=== PATIENT | male | born 1940 | race Caucasian/White ===

== ENCOUNTER 2019-02-09 13:12 | Inpatient (IN) ==
[2019-02-09] MEDS ORDERED: ACETAMINOPHEN 500 MG TAB PO STA (14:22)
[2019-02-09] MEDS ORDERED: PIPERACILLIN/TAZOBACTAM 4.5 GM/120 ML BAG IV ONE (14:41)
[2019-02-09] MEDS ORDERED: MoRPHine SULFATE 2 MG/ML CARP IV STA (14:41)
[2019-02-09] MEDS ORDERED: PIPERACILL/TAZOBAC CONSULT ACTIVE PRN (14:41)
[2019-02-09 15:04] LABS: Basophils # (auto) 0.01 K/uL (0-0.2); Basophils % (auto) 0.1 %; Hemoglobin 11.4 g/dL (14.0-18.0); Immature Granulocytes # (auto) 0.02 K/uL (0.00-0.02); Immature Granulocytes % (auto) 0.2 %; Lymphocytes # (auto) 0.39 K/uL (1.2-3.4); Lymphocytes % (auto) 3.2 %; Mean Corpuscular Hgb Conc 32.6 g/dL (32-36); Mean Corpuscular Volume 87.1 fL (80-100); Mean Platelet Volume 10.2 fL (7.4-10.4); Monocytes # (auto) 0.93 K/uL (0.11-0.59); Monocytes % (auto) 7.6 %; Neutrophils # (auto) 10.88 K/uL (1.4-6.5); Neutrophils % (auto) 88.9 %; Platelet Count 227 K/uL (130-400); RDW Coefficient of Variation 16.1 % (11.5-14.5); RDW Standard Deviation 51.6 fL (36.4-46.3); Red Blood Count 4.02 M/uL (4.7-6.1); White Blood Count 12.23 K/uL (4.8-10.8)
[2019-02-09 15:26] LABS: Alanine Aminotransferase 38 U/L (12-78); Albumin Level 1.9 gm/dl (3.4-5.0); Aspartate Aminotransferase 51 U/L (15-37); BUN Creatinine Ratio 15.7 (10-20); Blood Urea Nitrogen 57 mg/dl (7-18); Calcium 8.4 mg/dl (8.5-10.1); Carbon Dioxide 29 mmol/L (21-32); Chloride 99 mmol/L (98-107); Est GFR (African American) 17.6; Est GFR (Non-African American) 15.2; Glucose 235 mg/dl (70-99); Potassium 4.1 mmol/L (3.5-5.1); Sodium 135 mmol/L (136-145)
[2019-02-09 15:33] LABS: Albumin Globulin Ratio 0.4 (0.9-2); Alkaline Phosphatase 54 U/L (45-117); Bilirubin,Total 0.6 mg/dl (0.2-1); Globulin 4.3 gm/dl (2.5-4.0); Total Protein 6.2 gm/dl (6.4-8.2)
--- NOTE | 2019-02-09 15:38 | XRay Report ---
XR ankle RT min 3V routine CLINICAL HISTORY: Cellulitis COMPARISON: Right tibia and fibula radiographs December 07, 2015. FINDINGS: Alignment of the right ankle is anatomic. The talar dome is intact. There are soft tissue swelling. There is no evidence for osteomyelitis. There is moderate posterior and plantar calcaneal s purring. An ossicle along the medial malleolus is old. IMPRESSION: 1. No acute fracture or evidence of osteomyelitis. 2. Moderate soft tissue swelling. Electronically signed by: Daniel Muñoz M.D. 02/09/2019 3:37 PM
--- NOTE | 2019-02-09 15:38 | XRay Report ---
XR foot RT min 3V routine CLINICAL HISTORY: cellulitis COMPARISON: None. DISCUSSION: There is moderate dorsal soft tissue swelling. No acute fractures are visualized. No dest ructive lesions are evident. There is calcaneal spurring. There is no conventional radiographic evide nce of osteomyelitis. IMPRESSION: 1. No acute fractures 2. Dorsal soft tissue swelling 3. No destructive lesions are visualized Electronically signed by: Lino Mae M.D. 02/09/2019 3:37 PM
[2019-02-09] MEDS ORDERED: VANCOMYCIN CONSULT ACTIVE PRN (16:18)
[2019-02-09] MEDS ORDERED: VANCOMYCIN HCL 2,500 MG in SODIUM CHLORIDE 0.9% 500 ML IV ONE (16:18)
--- NOTE | 2019-02-09 16:18 | History & Physical Report ---
Date of Service February 09, 2019 Assessment & Plan (1) CHF (congestive heart failure): Volume Overload Acute on chronic systolic CHF exacerbation --CXR showed:Mild cardiomegaly with volume overload/congestive change and mild pulmonary edema. Given the asymmetric density at the left lung base, underlying left lower lobe pneumonia cannot be excluded. Correlate clinically for infectious symptoms. Suspected left pleural effusion. --Did not take his medications since last 3 days --Update ECHO Hold PO diuretics Start IV Lasix 40mg BID Daily weight, I/Os, fluid restriction Low sodium diet Oxygen support PRN Monitor renal function/electrolytes Cardiology consulted Afib RVR: Diagnosed in Nov 2018 Monitor electrolytes Did not take his medications since 3 days Restart metoprolol Monitor INR:3.5 Hold Coumadin today B/L LE cellulitis: Normal Lactate levels Venous Doppler:There is no sonographic evidence of deep venous thrombosis identified in the right lower extremity. Ankle X ray:No acute fracture or evidence of osteomyelitis. Moderate soft tissue swelling. Foot X ray:No acute fractures. Dorsal soft tissue swelling No destructive lesions are visualized Start on Daptomycin and Zosyn Blood/Wound Cultures Wound Care BRANDEE on CKD IV: Hold Lisinopril, Statin Avoid NSAIDs Baseline Cr:2.5 in Nov 2018 Cr:3.62 Avoid nephro toxic agents Monitor renal function Consulted Nephrology DM II hold oral diabetic meds Last A1c:7.1 in Nov 2018 ISS, basal Insulin, Accu checks, Diabetic diet Update A1C Dyslipidemia Hold Statin for now Mechanical Fall: PT/OT Fall precuations CARLOS ALBERTO Not on CPAP Tobacco use disorder Refuses Nicotine Patch DVT Px: INR supratherapeutic Code Status DNI/DNR as per my discussion with patient Disposition: PT/OT prior to discharge History of Present Illness Chief Complaint: Leg swelling Primary Care Provider: Aden Colon Patient is a 78-year-old male with history of DM II, CHF, CKD IV, atrial fibrillation, dyslipidemia, CARLOS ALBERTO, tobacco use disorder, hypertension and other problems presents with history of worsening bilateral leg swelling and pain since 1 week duration. Patient is a poor historian. He states having bilateral leg swelling with erythema which has been progressively worsening. Denies any history of trauma, insect bite. "My dog scratches my legs on and off". Patient was noted to be noncompliant with office visits as per outpatient documentation. He complains of leg pain which is 9/10 intensity, sharp to dull, associated with difficulty with ambulation and generalized weakness. He also noted some clear discharge from small wounds on his legs. He reports history of fall yesterday denies any history of syncope, head trauma. He has been having dry cough since last few weeks. He states having palpitations intermittently and admits to not taking his medications since last 3 days. He states have dyspnea on exertion only. Denies any history of chest pain, SOB at rest, orthopnea, PND, weight change, dizziness, hemoptysis, fever, chills, headache, change in vision, nausea, vomiting, abdominal pain, diarrhea, dysuria, recent change in medications. Allergies Allergy/AdvReac Type Severity Reaction Status Date / Time codeine AdvReac Intermediate NAUSEA Verified 02/09/19 14:25 Home Medications Home Medications Medication Instructions Recorded Confirmed Type aspirin 325 mg PO DAILY 02/09/19 02/09/19 History cholecalciferol (vitamin D3) 2,000 units PO DAILY 02/09/19 02/09/19 History furosemide 40 mg PO BID 02/09/19 02/09/19 History glipizide 10 mg PO BID 02/09/19 02/09/19 History liraglutide [Victoza 2-Fernando] 1.2 mg SUBCUT DAILY 02/09/19 02/09/19 History lisinopril 40 mg PO DAILY 02/09/19 02/09/19 History lovastatin 80 mg PO HS 02/09/19 02/09/19 History metoprolol succinate [Toprol XL] 50 mg PO DAILY 02/09/19 02/09/19 History potassium chloride 20 meq PO DAILY 02/09/19 02/09/19 History warfarin 5 mg PO DIRECTED 02/09/19 02/09/19 History Past Med/Surg History Medical History Atrial fibrillation CHF (congestive heart failure) CKD (chronic kidney disease), stage IV Diabetes Dyslipidemia HTN (hypertension), benign No significant past surgical history CARLOS ALBERTO (obstructive sleep apnea) Tobacco use disorder Family History Mother Cancer Social History Feels Safe at Home: Yes Smoking Status: Current every day smoker Hx Alcohol Use: No Review of Systems All systems reviewed & are unremarkable except as noted in HPI & below Physical Exam Vital Signs (Past 24 Hours): Last Vital Signs Temp 36.6 C 02/09/19 13:23 Pulse 107 H 02/09/19 15:40 Resp 17 02/09/19 15:40 BP 102/59 L 02/09/19 15:40 Pulse Ox 98 02/09/19 14:46 Physical Exam: Physical Exam: Vitals signs as noted above General Appearance:Obese, no apparent distress Head: normocephalic, Atraumatic Eyes: normal inspection, EOMI Neck: supple, Trachea midline Respiratory/Chest: Decreased breath sounds, Scattered rales, wheezes Cardiovascular: Irregularly Irregular, No murmur, +Tachycardia Abdomen/GI:Soft, Non tender, Bowel sounds present Extremities/Musculoskelatal:normal inspection, B/L LE swelling, erythema, small open wounds Neurologic/Psych:AAOX3, grossly no focal neurological deficits Skin: normal color, warm Results & Data Laboratory Results Short CBC 02/09/19 Range/Units 14:50 WBC 12.23 H (4.8-10.8) K/uL Hgb 11.4 L (14.0-18.0) g/dL Hct 35.0 L (42-52) % Plt Count 227 (130-400) K/uL BMP 02/09/19 14:50 Sodium 135 L Potassium 4.1 Chloride 99 Carbon Dioxide 29 BUN 57 H Creatinine 3.62 H Glucose 235 H Calcium 8.4 L Liver Function 02/09/19 Range/Units 14:50 Total Bilirubin 0.6 (0.2-1) mg/dl AST 51 H (15-37) U/L ALT 38 (12-78) U/L Alkaline Phosphatase 54 (45-117) U/L Albumin 1.9 L (3.4-5.0) gm/dl Diagnostic Findings CXR: 1. Mild cardiomegaly with volume overload/congestive change and mild pulmonary edema. Given the asymmetric density at the left lung base, underlying left lower lobe pneumonia cannot be excluded. Correlate clinically for infectious symptoms. 2. Suspected left pleural effusion. ECG Additional Comments: EKG:Atrial Fibrillation, QTC:464
--- NOTE | 2019-02-09 16:32 | Ultrasound Report ---
ULTRASOUND RIGHT LOWER EXTREMITY VENOUS CLINICAL HISTORY: Right lower extremity erythema. Cellulitis. COMPARISON STUDY: Bilateral lower extremity venous ultrasound dated 03/17/2012. TECHNIQUE: Real-time, grayscale, and color Doppler sonography of the deep veins of the right lower ex tremity was performed from the inguinal crease to the calf. Compression and augmentation were utilize d. FINDINGS: There is no sonographic evidence of deep venous thrombosis identified in the right lower ex tremity. The common femoral, superficial femoral, and popliteal veins are patent and normally yaritza sible. The greater saphenous vein and the profunda femoris vein at the junction with the common femor al vein are clear. The visualized calf veins are patent. IMPRESSION: There is no sonographic evidence of deep venous thrombosis identified in the right lower extremity. Electronically signed by: Aman Valverde M.D. 02/09/2019 4:31 PM
[2019-02-09 17:34] LABS: INR 3.5 (0.9-1.1); Partial Thromboplastin Ratio 2.1; Prothrombin Time 32.5 Seconds (9.0-12.0)
--- NOTE | 2019-02-09 17:36 | XRay Report ---
XR chest 2V routine CLINICAL HISTORY: 78 years-old Male presenting with Cough. TECHNIQUE: Portable upright AP view of the chest was obtained. COMPARISON: 03/17/2012. FINDINGS: Atherosclerosis of the aortic arch. Cardiac silhouette mildly enlarged. Pulmonary vascular prominence and bronchial wall thickening. Bibasilar opacities more dense on the left. Underlying left pleural e ffusion suspected. No pneumothorax. Hyperdensity projects over the right hemithorax present on prior exam though slightly altered in location, likely within superficial soft tissues. Additional linear hyperdensity noted in the left axilla, which may have been present on prior exam. IMPRESSION: 1. Mild cardiomegaly with volume overload/congestive change and mild pulmonary edema. Given the asym metric density at the left lung base, underlying left lower lobe pneumonia cannot be excluded. Correl ate clinically for infectious symptoms. 2. Suspected left pleural effusion. Electronically signed by: Robinson Allison M.D. 02/09/2019 5:34 PM
--- NOTE | 2019-02-09 18:01 | Emergency Department Note ---
Entered by Philip Brumfield acting as a scribe for Jose Antonio Flores MD History of Present Illness General Chief complaint: Illness Stated complaint: RT LEG PAIN Time Seen by Provider: 02/09/19 13:49 Source: patient Mode of arrival: ambulatory History of Present Illness Provider complaint: skin changes Onset (ago): week(s) 3 Location: lower extremity Pain Consistency: + other (skin changes) Maximum Pain Intensity: 10 Current Pain Intensity: 10 Associated symptoms: no diaphoresis and no fever/chills The patient is a 78 year old white male with past medical history CHF, CKD, A- Fib, CARLOS ALBERTO and HTN who presents to the ED with chief complains of skin changes beginning 3 weeks ago. The patient states experiencing bilateral lower extremity skin changes and was given topical cream (patient unsure of medication appears to be antifungal/antibiotic). He then returned to his PCP Wednesday and at that time had some medicine changes but no additional antibiotics were given. He was told to return for evaluation on Wednesday and around that time developed seeping fluid from right lower extremity. He Was reevaluated this afternoon in the clinic and found to have significant erythema of right lower extremity and was told to come to the ED. Patient denies any significant chills, fever or sweats. Complains of 10/10 pain with walking or palpation and was required to be helped by his son in and out of bed. Patient states he is unable to ambulate at this time due to pain. Home Medications Home Medications Medication Instructions Recorded Confirmed Type aspirin 325 mg PO DAILY 02/09/19 02/09/19 History cholecalciferol (vitamin D3) 2,000 units PO DAILY 02/09/19 02/09/19 History furosemide 40 mg PO BID 02/09/19 02/09/19 History glipizide 10 mg PO BID 02/09/19 02/09/19 History liraglutide [Victoza 2-Fernando] 1.2 mg SUBCUT DAILY 02/09/19 02/09/19 History lisinopril 40 mg PO DAILY 02/09/19 02/09/19 History lovastatin 80 mg PO HS 02/09/19 02/09/19 History metoprolol succinate [Toprol XL] 50 mg PO DAILY 02/09/19 02/09/19 History potassium chloride 20 meq PO DAILY 03/14/19 03/14/19 History warfarin 5 mg PO DIRECTED 02/09/19 02/09/19 History Allergies Allergy/AdvReac Type Severity Reaction Status Date / Time codeine AdvReac Intermediate NAUSEA Verified 02/09/19 14:25 Past Med/Surg History Medical History Atrial fibrillation CHF (congestive heart failure) CKD (chronic kidney disease), stage IV Diabetes Dyslipidemia HTN (hypertension), benign No significant past surgical history CARLOS ALBERTO (obstructive sleep apnea) Tobacco use disorder Family History Mother Cancer Social History Preferred Language: Bahamian Communication Ability: Effective Beliefs That Will Affect Care: None Other Information That Helps Us Care for You: No Feels Safe at Home: Yes Safety Concerns: Feels Safe At This Time Smoking Status: Current every day smoker Hx Alcohol Use: No Hx Substance Use: No Review of Systems See HPI for pertinent positives & negatives. and A total of 10 systems reviewed and were otherwise negative Physical Exam Vital Signs Vital Signs - 24 hr 02/09/19 13:23 02/09/19 14:45 02/09/19 14:46 Temperature 36.6 C Temperature Source Oral Sepsis Recent Fever Within 48 Hours No Sepsis Action Taken by Nursing No Action Required Pulse Rate 123 H 106 H 112 H Pulse Rate [Right Brachial] Pulse Rate from SpO2 Sensor Pulse Rhythm [Right Brachial] Pulse Strength [Right Brachial] Respiratory Rate 24 25 H 20 Respiratory Effort / Characteristics Respiratory Depth Respiratory Pattern Blood Pressure 135/83 126/74 126/74 Blood Pressure [Right Arm] Blood Pressure Mean 100 91 91 Blood Pressure Mean [Right Arm] Blood Pressure Position [Right Arm] Pulse Oximetry 96 98 Oxygen Delivery Method Room Air Room Air 02/09/19 14:53 02/09/19 15:00 02/09/19 15:12 Temperature Temperature Source Sepsis Recent Fever Within 48 Hours Sepsis Action Taken by Nursing Pulse Rate 103 H 99 H Pulse Rate [Right Brachial] Pulse Rate from SpO2 Sensor Pulse Rhythm [Right Brachial] Pulse Strength [Right Brachial] Respiratory Rate 18 25 H Respiratory Effort / Characteristics Respiratory Depth Respiratory Pattern Blood Pressure Blood Pressure [Right Arm] Blood Pressure Mean Blood Pressure Mean [Right Arm] Blood Pressure Position [Right Arm] Pulse Oximetry Oxygen Delivery Method Room Air 02/09/19 15:40 02/09/19 15:41 02/09/19 16:00 Temperature Temperature Source Sepsis Recent Fever Within 48 Hours Sepsis Action Taken by Nursing Pulse Rate 107 H 110 H 102 H Pulse Rate [Right Brachial] Pulse Rate from SpO2 Sensor Pulse Rhythm [Right Brachial] Pulse Strength [Right Brachial] Respiratory Rate 17 18 17 Respiratory Effort / Characteristics Respiratory Depth Respiratory Pattern Blood Pressure 102/59 L 92/59 L Blood Pressure [Right Arm] Blood Pressure Mean 73 70 Blood Pressure Mean [Right Arm] Blood Pressure Position [Right Arm] Pulse Oximetry Oxygen Delivery Method 02/09/19 17:00 02/09/19 17:02 02/09/19 17:50 Temperature Temperature Source Sepsis Recent Fever Within 48 Hours Sepsis Action Taken by Nursing Pulse Rate 120 H 103 H Pulse Rate [Right Brachial] Pulse Rate from SpO2 Sensor 118 H Pulse Rhythm [Right Brachial] Pulse Strength [Right Brachial] Respiratory Rate 21 20 Respiratory Effort / Characteristics Respiratory Depth Respiratory Pattern Blood Pressure 101/54 L 103/65 Blood Pressure [Right Arm] Blood Pressure Mean 69 Blood Pressure Mean [Right Arm] Blood Pressure Position [Right Arm] Pulse Oximetry 98 99 Oxygen Delivery Method Room Air Room Air Room Air 02/09/19 18:39 02/09/19 21:58 02/09/19 23:01 Temperature 36.8 C 36.6 C Temperature Source Oral Oral Sepsis Recent Fever Within 48 Hours Sepsis Action Taken by Nursing Pulse Rate Pulse Rate [Right Brachial] 112 H 74 Pulse Rate from SpO2 Sensor Pulse Rhythm [Right Brachial] Regular Regular Pulse Strength [Right Brachial] Normal Normal Respiratory Rate 20 18 Respiratory Effort / Characteristics Non-Labored Spontaneous Non-Labored Non-Labored Respiratory Depth Normal Normal Normal Respiratory Pattern Regular Regular Regular Blood Pressure Blood Pressure [Right Arm] 111/60 121/62 Blood Pressure Mean Blood Pressure Mean [Right Arm] 77 81 Blood Pressure Position [Right Arm] Sitting Lying Pulse Oximetry 92 93 Oxygen Delivery Method Room Air Room Air Room Air 02/10/19 04:11 02/10/19 04:17 02/10/19 07:31 Temperature 36.9 C 36.9 C Temperature Source Oral Oral Sepsis Recent Fever Within 48 Hours Sepsis Action Taken by Nursing Pulse Rate 79 Pulse Rate [Right Brachial] 56 L 76 Pulse Rate from SpO2 Sensor Pulse Rhythm [Right Brachial] Regular Pulse Strength [Right Brachial] Normal Respiratory Rate 18 18 Respiratory Effort / Characteristics Non-Labored Respiratory Depth Normal Respiratory Pattern Regular Blood Pressure Blood Pressure [Right Arm] 98/58 L 100/64 Blood Pressure Mean Blood Pressure Mean [Right Arm] 71 76 Blood Pressure Position [Right Arm] Lying Pulse Oximetry 95 95 Oxygen Delivery Method Room Air GENERAL: Well appearing, well nourished, NAD, non-toxic. EYE EXAM: Normal conjunctiva. PERRL, no anisocoria and EOM's grossly intact w/o pain. OROPHARYNX: Moist MM. NECK: Supple, no nuchal rigidity, no adenopathy, non-tender. No signs of meningismus. LUNGS: Clear to auscultation. Normal chest wall mechanics. HEART: NSR, no MRG. ABDOMEN: Abdomen soft, non-tender, normo-active bowel sounds, no masses, no rebound or guarding. BACK: No CVA TTP. SKIN: No rashes and no bruising. UPPER EXTREMITIES: Upper extremities are grossly normal. LOWER EXTREMITIES: Bilateral lower extremity edema, pitting symmetric associated erythema several weeping ruptures blisters non bloody over right lower extremity with erythema from proximal edouard to distal foot. Several areas of ecchymosis o conrado right foot well perfused No crepitus. NEURO EXAM: A and O x3. GCS 15. Moves all 4 extremities on command w/o issue. Course 1420: Past medical records reviewed. The patient was evaluated in room A10, and a complete history and physical examination were performed. 1541: I discussed the patient's case with Russ Diaz and after discus valorie the patient will be admitted under his care. The patient verbalized agreement to the treatment plan. Consultations Consultation #1: Russ Diaz Time: 15:41 Administered Medications Aspirin (Ecotrin Ectab) 81 mg PO QAM [facility] Stop: 03/12/19 08:59 Last Admin: 02/10/19 08:54 Dose: 81 mg Documented by: [id number] Furosemide 40 mg/ Syringe 4 mls @ 4 mls/min IV Q12H [facility] Stop: 03/11/19 18:59 Last Admin: 02/10/19 06:05 Dose: 4 mls/min Documented by: [id number] Admin: 02/09/19 20:07 Dose: 4 mls/min Documented by: [id number] Piperacillin Sod/Tazobactam (Sod 4.5 gm/ Dextrose) 120 mls @ 30 mls/hr IV Q12H [facility]; Protocol Stop: 02/19/19 22:59 Last Infusion: 02/10/19 03:20 Dose: 0 mls/hr Documented by: [id number] Admin: 02/09/19 22:26 Dose: 30 mls/hr Documented by: [id number] Daptomycin 375 mg/ Syringe 7.5 mls @ 3.75 mls/min IV Q48H [facility]; Protocol Stop: 02/20/19 08:59 Last Admin: 02/10/19 08:35 Dose: 3.75 mls/min Documented by: [id number] Insulin Aspart (Novolog Flexpen) 0 units SC ACHS [facility] Stop: 03/11/19 20:59 Last Admin: 02/10/19 08:40 Dose: 5 units Documented by: [id number] Cosigned by: [id number] Admin: 02/09/19 20:25 Dose: 7 units Documented by: [id number] Cosigned by: [id number] Insulin Glargine (Lantus Solostar Pen) 10 units SC Q12H [facility] Stop: 03/11/19 20:59 Last Admin: 02/10/19 08:40 Dose: 10 units Documented by: [id number] Cosigned by: [id number] Admin: 02/09/19 20:11 Dose: 10 units Documented by: [id number] Cosigned by: [id number] Metoprolol Succinate (Toprol Xl) 50 mg PO DAILY [facility] Stop: 03/11/19 18:35 Last Admin: 02/10/19 08:36 Dose: 50 mg Documented by: [id number] Admin: 02/09/19 20:08 Dose: 50 mg Documented by: [id number] Potassium Chloride (Klor-Con M10) 10 meq PO BID [facility] Stop: 03/12/19 08:59 Last Admin: 02/10/19 08:35 Dose: 10 meq Documented by: [id number] Discontinued Medications Acetaminophen (Tylenol) 1,000 mg PO NOW STA Stop: 02/09/19 14:23 Last Admin: 02/09/19 15:10 Dose: 1,000 mg Documented by: [id number] Piperacillin Sod/Tazobactam Sod (Zosyn) 4.5 gm in 120 mls @ 240 mls/hr IV NOW ONE Stop: 02/09/19 15:10 Last Infusion: 02/09/19 16:08 Dose: 0 mls/hr Documented by: [id number] Admin: 02/09/19 15:36 Dose: 240 mls/hr Documented by: [id number] Vancomycin HCl 2,500 mg/ (Sodium Chloride) 550 mls @ 200 mls/hr IV NOW ONE Stop: 02/09/19 19:02 Last Infusion: 02/09/19 19:51 Dose: 0 mls/hr Documented by: [id number] Admin: 02/09/19 16:55 Dose: 200 mls/hr Documented by: [id number] Morphine Sulfate (Morphine Sulfate) 2 mg IV NOW STA Stop: 02/09/19 14:42 Last Admin: 02/09/19 15:35 Dose: 2 mg Documented by: [id number] Medical Decision Making Differential Diagnosis Differential diagnosis: Etiologies such as cellulitis, abscess, osteomyelitis, MRSA infection, DVT, necrotizing fasciitis, dermatitis, drug eruption, as well as others were entertained. Medical Records Attestation: I reviewed the patient's medical records. Home Medications Current Medication List: was personally reviewed by me Laboratory Data Attestation: I reviewed the patient's lab results. Result diagrams: 02/10/19 08:02 02/10/19 08:02 Lab Results 02/09/19 02/09/19 02/09/19 Range/Units 14:50 14:50 14:50 WBC 12.23 H (4.8-10.8) K/uL RBC 4.02 L (4.7-6.1) M/uL Hgb 11.4 L (14.0-18.0) g/dL Hct 35.0 L (42-52) % MCV 87.1 (80-100) fL MCH 28.4 (25-34) pg MCHC 32.6 (32-36) g/dL RDW Std Deviation 51.6 H (36.4-46.3) fL RDW Coeff of Kiah 16.1 H (11.5-14.5) % Plt Count 227 (130-400) K/uL MPV 10.2 (7.4-10.4) fL Immature Gran % (Auto) 0.2 % Neut % (Auto) 88.9 % Lymph % (Auto) 3.2 % [place] % (Auto) 7.6 % Eos % (Auto) 0.0 % Baso % (Auto) 0.1 % Immature Gran # (Auto) 0.02 (0.00-0.02) K/uL Neut # (Auto) 10.88 H (1.4-6.5) K/uL Lymph # (Auto) 0.39 L (1.2-3.4) K/uL [place] # (Auto) 0.93 H (0.11-0.59) K/uL Eos # (Auto) 0.00 (0-0.5) K/uL Baso # (Auto) 0.01 (0-0.2) K/uL Absolute Nucleated RBC (0-0) K/uL Nucleated RBC % (auto) % ESR 84 H (0-14) mm/hr PT (9.0-12.0) Seconds INR (0.9-1.1) APTT (21.0-31.0) Seconds PTT Ratio Sodium 135 L (136-145) mmol/L Potassium 4.1 (3.5-5.1) mmol/L Chloride 99 (98-107) mmol/L Carbon Dioxide 29 (21-32) mmol/L Anion Gap 7.0 (3-11) BUN 57 H (7-18) mg/dl Creatinine 3.62 H (0.6-1.4) mg/dl Est Cr Clr Drug Dosing Not Reportable Est GFR ( Amer) 17.6 Est GFR (Non-Af Amer) 15.2 BUN/Creatinine Ratio 15.7 (10-20) Glucose 235 H (70-99) mg/dl POC Glucose (70-99) Estimat Average Glucose mg/dl Hemoglobin A1c (4.5-5.6) % Lactate (0.4-2.0) mmol/L Calcium 8.4 L (8.5-10.1) mg/dl Magnesium (1.8-2.4) mg/dl Total Bilirubin 0.6 (0.2-1) mg/dl AST 51 H (15-37) U/L ALT 38 (12-78) U/L Alkaline Phosphatase 54 (45-117) U/L C-Reactive Protein 26.90 H (0-0.29) mg/dl Total Protein 6.2 L (6.4-8.2) gm/dl Albumin 1.9 L (3.4-5.0) gm/dl Globulin 4.3 H (2.5-4.0) gm/dl Albumin/Globulin Ratio 0.4 L (0.9-2) Procalcitonin (0-0.5) ng/ml Nasal Screen MRSA (PCR) (Negative) 02/09/19 02/09/19 02/09/19 Range/Units 14:50 14:50 14:50 WBC (4.8-10.8) K/uL RBC (4.7-6.1) M/uL Hgb (14.0-18.0) g/dL Hct (42-52) % MCV (80-100) fL MCH (25-34) pg MCHC (32-36) g/dL RDW Std Deviation (36.4-46.3) fL RDW Coeff of Kiah (11.5-14.5) % Plt Count (130-400) K/uL MPV (7.4-10.4) fL Immature Gran % (Auto) % Neut % (Auto) % Lymph % (Auto) % [place] % (Auto) % Eos % (Auto) % Baso % (Auto) % Immature Gran # (Auto) (0.00-0.02) K/uL Neut # (Auto) (1.4-6.5) K/uL Lymph # (Auto) (1.2-3.4) K/uL [place] # (Auto) (0.11-0.59) K/uL Eos # (Auto) (0-0.5) K/uL Baso # (Auto) (0-0.2) K/uL Absolute Nucleated RBC (0-0) K/uL Nucleated RBC % (auto) % ESR (0-14) mm/hr PT 32.5 H (9.0-12.0) Seconds INR 3.5 H (0.9-1.1) APTT 56.0 H* (21.0-31.0) Seconds PTT Ratio 2.1 Sodium (136-145) mmol/L Potassium (3.5-5.1) mmol/L Chloride (98-107) mmol/L Carbon Dioxide (21-32) mmol/L Anion Gap (3-11) BUN (7-18) mg/dl Creatinine (0.6-1.4) mg/dl Est Cr Clr Drug Dosing Est GFR ( Amer) Est GFR (Non-Af Amer) BUN/Creatinine Ratio (10-20) Glucose (70-99) mg/dl POC Glucose (70-99) Estimat Average Glucose mg/dl Hemoglobin A1c (4.5-5.6) % Lactate 1.7 (0.4-2.0) mmol/L Calcium (8.5-10.1) mg/dl Magnesium (1.8-2.4) mg/dl Total Bilirubin (0.2-1) mg/dl AST (15-37) U/L ALT (12-78) U/L Alkaline Phosphatase (45-117) U/L C-Reactive Protein Cancelled (0-0.29) mg/dl Total Protein (6.4-8.2) gm/dl Albumin (3.4-5.0) gm/dl Globulin (2.5-4.0) gm/dl Albumin/Globulin Ratio (0.9-2) Procalcitonin (0-0.5) ng/ml Nasal Screen MRSA (PCR) (Negative) 02/09/19 02/09/19 02/10/19 Range/Units 17:20 20:22 07:31 WBC (4.8-10.8) K/uL RBC (4.7-6.1) M/uL Hgb (14.0-18.0) g/dL Hct (42-52) % MCV (80-100) fL MCH (25-34) pg MCHC (32-36) g/dL RDW Std Deviation (36.4-46.3) fL RDW Coeff of Kiah (11.5-14.5) % Plt Count (130-400) K/uL MPV (7.4-10.4) fL Immature Gran % (Auto) % Neut % (Auto) % Lymph % (Auto) % [place] % (Auto) % Eos % (Auto) % Baso % (Auto) % Immature Gran # (Auto) (0.00-0.02) K/uL Neut # (Auto) (1.4-6.5) K/uL Lymph # (Auto) (1.2-3.4) K/uL [place] # (Auto) (0.11-0.59) K/uL Eos # (Auto) (0-0.5) K/uL Baso # (Auto) (0-0.2) K/uL Absolute Nucleated RBC (0-0) K/uL Nucleated RBC % (auto) % ESR (0-14) mm/hr PT (9.0-12.0) Seconds INR (0.9-1.1) APTT (21.0-31.0) Seconds PTT Ratio Sodium (136-145) mmol/L Potassium (3.5-5.1) mmol/L Chloride (98-107) mmol/L Carbon Dioxide (21-32) mmol/L Anion Gap (3-11) BUN (7-18) mg/dl Creatinine (0.6-1.4) mg/dl Est Cr Clr Drug Dosing Est GFR ( Amer) Est GFR (Non-Af Amer) BUN/Creatinine Ratio (10-20) Glucose (70-99) mg/dl POC Glucose 261 H 143 H (70-99) Estimat Average Glucose mg/dl Hemoglobin A1c (4.5-5.6) % Lactate (0.4-2.0) mmol/L Calcium (8.5-10.1) mg/dl Magnesium (1.8-2.4) mg/dl Total Bilirubin (0.2-1) mg/dl AST (15-37) U/L ALT (12-78) U/L Alkaline Phosphatase (45-117) U/L C-Reactive Protein (0-0.29) mg/dl Total Protein (6.4-8.2) gm/dl Albumin (3.4-5.0) gm/dl Globulin (2.5-4.0) gm/dl Albumin/Globulin Ratio (0.9-2) Procalcitonin (0-0.5) ng/ml Nasal Screen MRSA (PCR) Positive A (Negative) 02/10/19 02/10/19 02/10/19 Range/Units 08:02 08:02 08:02 WBC 9.05 (4.8-10.8) K/uL RBC 3.91 L (4.7-6.1) M/uL Hgb 11.1 L (14.0-18.0) g/dL Hct 34.2 L (42-52) % MCV 87.5 (80-100) fL MCH 28.4 (25-34) pg MCHC 32.5 (32-36) g/dL RDW Std Deviation 52.3 H (36.4-46.3) fL RDW Coeff of Kiah 16.3 H (11.5-14.5) % Plt Count 231 (130-400) K/uL MPV 10.1 (7.4-10.4) fL Immature Gran % (Auto) % Neut % (Auto) % Lymph % (Auto) % [place] % (Auto) % Eos % (Auto) % Baso % (Auto) % Immature Gran # (Auto) (0.00-0.02) K/uL Neut # (Auto) (1.4-6.5) K/uL Lymph # (Auto) (1.2-3.4) K/uL [place] # (Auto) (0.11-0.59) K/uL Eos # (Auto) (0-0.5) K/uL Baso # (Auto) (0-0.2) K/uL Absolute Nucleated RBC 0.02 H (0-0) K/uL Nucleated RBC % (auto) 0.3 % ESR (0-14) mm/hr PT 30.3 H (9.0-12.0) Seconds INR 3.2 H (0.9-1.1) APTT (21.0-31.0) Seconds PTT Ratio Sodium 135 L (136-145) mmol/L Potassium 4.5 (3.5-5.1) mmol/L Chloride 99 (98-107) mmol/L Carbon Dioxide 31 (21-32) mmol/L Anion Gap 5.0 (3-11) BUN 63 H (7-18) mg/dl Creatinine 4.17 H D (0.6-1.4) mg/dl Est Cr Clr Drug Dosing 19.1 Est GFR ( Amer) 14.8 Est GFR (Non-Af Amer) 12.8 BUN/Creatinine Ratio 15.1 (10-20) Glucose 137 H (70-99) mg/dl POC Glucose (70-99) Estimat Average Glucose mg/dl Hemoglobin A1c (4.5-5.6) % Lactate (0.4-2.0) mmol/L Calcium 8.3 L (8.5-10.1) mg/dl Magnesium 2.3 (1.8-2.4) mg/dl Total Bilirubin (0.2-1) mg/dl AST (15-37) U/L ALT (12-78) U/L Alkaline Phosphatase (45-117) U/L C-Reactive Protein (0-0.29) mg/dl Total Protein (6.4-8.2) gm/dl Albumin (3.4-5.0) gm/dl Globulin (2.5-4.0) gm/dl Albumin/Globulin Ratio (0.9-2) Procalcitonin (0-0.5) ng/ml Nasal Screen MRSA (PCR) (Negative) 02/10/19 02/10/19 Range/Units 08:02 08:02 WBC (4.8-10.8) K/uL RBC (4.7-6.1) M/uL Hgb (14.0-18.0) g/dL Hct (42-52) % MCV (80-100) fL MCH (25-34) pg MCHC (32-36) g/dL RDW Std Deviation (36.4-46.3) fL RDW Coeff of Kiah (11.5-14.5) % Plt Count (130-400) K/uL MPV (7.4-10.4) fL Immature Gran % (Auto) % Neut % (Auto) % Lymph % (Auto) % [place] % (Auto) % Eos % (Auto) % Baso % (Auto) % Immature Gran # (Auto) (0.00-0.02) K/uL Neut # (Auto) (1.4-6.5) K/uL Lymph # (Auto) (1.2-3.4) K/uL [place] # (Auto) (0.11-0.59) K/uL Eos # (Auto) (0-0.5) K/uL Baso # (Auto) (0-0.2) K/uL Absolute Nucleated RBC (0-0) K/uL Nucleated RBC % (auto) % ESR (0-14) mm/hr PT (9.0-12.0) Seconds INR (0.9-1.1) APTT (21.0-31.0) Seconds PTT Ratio Sodium (136-145) mmol/L Potassium (3.5-5.1) mmol/L Chloride (98-107) mmol/L Carbon Dioxide (21-32) mmol/L Anion Gap (3-11) BUN (7-18) mg/dl Creatinine (0.6-1.4) mg/dl Est Cr Clr Drug Dosing Est GFR ( Amer) Est GFR (Non-Af Amer) BUN/Creatinine Ratio (10-20) Glucose (70-99) mg/dl POC Glucose (70-99) Estimat Average Glucose 174 mg/dl Hemoglobin A1c 7.7 H (4.5-5.6) % Lactate (0.4-2.0) mmol/L Calcium (8.5-10.1) mg/dl Magnesium (1.8-2.4) mg/dl Total Bilirubin (0.2-1) mg/dl AST (15-37) U/L ALT (12-78) U/L Alkaline Phosphatase (45-117) U/L C-Reactive Protein (0-0.29) mg/dl Total Protein (6.4-8.2) gm/dl Albumin (3.4-5.0) gm/dl Globulin (2.5-4.0) gm/dl Albumin/Globulin Ratio (0.9-2) Procalcitonin 5.03 H (0-0.5) ng/ml Nasal Screen MRSA (PCR) (Negative) Imaging Data Attestation: I personally reviewed and interpreted this imaging study as follows: Radiologist's Impression: Radiology results as stated below per my review and the radiologist's interpretation: XR chest 2V routine CLINICAL HISTORY: 78 years-old Male presenting with Cough. TECHNIQUE: Portable upright AP view of the chest was obtained. COMPARISON: 03/17/2012. FINDINGS: Atherosclerosis of the aortic arch. Cardiac silhouette mildly enlarged. Pulmonary vascular prominence and bronchial wall thickening. Bibasilar opacities more dense on the left. Underlying left pleural effusion suspected. No pneumothorax. Hyperdensity projects over the right hemithorax present on prior exam though slightly altered in location, likely within superficial soft tissues. Additional linear hyperdensity noted in the left axilla, which may have been present on prior exam. IMPRESSION: 1. Mild cardiomegaly with volume overload/congestive change and mild pulmonary edema. Given the asymmetric density at the left lung base, underlying left lower lobe pneumonia cannot be excluded. Correlate clinically for infectious symptoms. 2. Suspected left pleural effusion. Electronically signed by: Robinson Allison M.D. 02/09/2019 5:34 PM ULTRASOUND RIGHT LOWER EXTREMITY VENOUS CLINICAL HISTORY: Right lower extremity erythema. Cellulitis. COMPARISON STUDY: Bilateral lower extremity venous ultrasound dated 03/17/2012. TECHNIQUE: Real-time, grayscale, and color Doppler sonography of the deep veins of the right lower extremity was performed from the inguinal crease to the calf. Compression and augmentation were utilized. FINDINGS: There is no sonographic evidence of deep venous thrombosis identified in the right lower extremity. The common femoral, superficial femoral, and popliteal veins are patent and normally compressible. The greater saphenous vein and the profunda femoris vein at the junction with the common femoral vein are clear. The visualized calf veins are patent. IMPRESSION: There is no sonographic evidence of deep venous thrombosis identified in the right lower extremity. Electronically signed by: Aman Valverde M.D. 02/09/2019 4:31 PM XR foot RT min 3V routine CLINICAL HISTORY: cellulitis COMPARISON: None. DISCUSSION: There is moderate dorsal soft tissue swelling. No acute fractures are visualized. No destructive lesions are evident. There is calcaneal spurring. There is no conventional radiographic evidence of osteomyelitis. IMPRESSION: 1. No acute fractures 2. Dorsal soft tissue swelling 3. No destructive lesions are visualized Electronically signed by: Lino Mae M.D. 02/09/2019 3:37 PM XR ankle RT min 3V routine CLINICAL HISTORY: Cellulitis COMPARISON: Right tibia and fibula radiographs December 07, 2015. FINDINGS: Alignment of the right ankle is anatomic. The talar dome is intact. There are soft tissue swelling. There is no evidence for osteomyelitis. There is moderate posterior and plantar calcaneal spurring. An ossicle along the medial malleolus is old. IMPRESSION: 1. No acute fracture or evidence of osteomyelitis. 2. Moderate soft tissue swelling. Electronically signed by: Daniel Muñoz M.D. 02/09/2019 3:37 PM ECG Data Indication: tachycardia Rate (beats per minute): 99 Rhythm: atrial fibrillation Findings: + other (normal QRS duration, normal axis, no ishcemic change) Change: the following changes noted (a fib now present compared to EKG 03/18/12) Blood Pressure Blood Pressure Findings: Normal blood pressure MDM Narrative Patient was seen and evaluated the bedside. The patient was presenting with right lower extremity swelling pain. Patient does complain of chronic shortness of breath. Patient does have significant right lower extremity edema and associated redness. Antibiotics were initiated. No crepitus noted. Patient does have several weeping ruptured bullae that are hemostatic. No evidence of any bloody bullae. The patient has a low reticulocyte score of 4. Not no risk but lower risk for necrotizing fasciitis. I believe this is a significant associated cellulitis at this time. Plain films show edema but no evidence of any subcu gas. The patient's blood work was significant for elevated CRP likely associated inflammatory response and the patient also does have a noted AK I with baseline creatinine 1.7 today is 3.5. I did speak with the on-call hospitalist who agreed to further evaluate treat the patient. Patient in a fib compared to prior EKG. On Coumadin. Pending INR. Impression & Plan Cellulitis, BRANDEE (acute kidney injury), Encounter for smoking cessation counseling Discharge Plan Visit Data *Final* Discharge Date/Time: 02/09/19 17:50 Chief Complaint: Illness Stated Complaint: RT LEG PAIN ED Provider: Jose Antonio Flores ED Midlevel Provider: David Santos Discharge Problem: Cellulitis, BRANDEE (acute kidney injury), Encounter for smoking cessation counseling Patient Disposition: Admitted As Inpatient Discharge Instructions Interventions: ED Discharge Assessment Last Done: 02/09/19 17:50 The scribe's documentation has been prepared under my direction and personally reviewed by me in its entirety. I confirm that the note above accurately reflects all work, treatment, procedures, and medical decision making performed by me.
[2019-02-09] MEDS ORDERED: POLYETHYLENE (MIRALAX) 17 GM PACK PO PRN (18:36)
[2019-02-09] MEDS ORDERED: DEXTROSE 50% 50 ML SYRINGE IV PRN (18:36)
[2019-02-09] MEDS ORDERED: ACETAMINOPHEN 325 MG TAB PO PRN (18:36)
[2019-02-09] MEDS ORDERED: GLUCOSE 10 TABS/TUBE PO PRN (18:36)
[2019-02-09] MEDS ORDERED: MoRPHine SULFATE 2 MG/ML CARP IV PRN (18:36)
[2019-02-09] MEDS ORDERED: GLUCAGON FOR INJ 1 MG VIAL SQ PRN (18:36)
[2019-02-09] MEDS ORDERED: ONDANSETRON INJ 2 MG/ML 2 ML VIAL IV PRN (18:36)
[2019-02-09] MEDS ORDERED: FUROSEMIDE 40 MG/4 ML VIAL IV STA (18:36)
[2019-02-09] MEDS ORDERED: GLUCOSE 40% GEL 15 GM TUBE PO PRN (18:36)
[2019-02-09] MEDS ORDERED: CARBOHYDRATES FOR HYPOGLYCEMIA PO PRN (18:36)
[2019-02-09] MEDS ORDERED: DAPTOMYCIN CONSULT ACTIVE PRN (19:02)
[2019-02-09] MEDS: FUROSEMIDE 40 MG in SYRINGE 0 ML IV SCH (20:07)
[2019-02-09] MEDS: METOPROLOL SUCC 50MG EXT REL TAB PO SCH (20:08)
[2019-02-09] MEDS: INSULIN GLARGINE SOLOSTAR 100 UNITS/ML 3 ML PEN SC SCH (20:11)
[2019-02-09] MEDS: INSULIN ASPART 100 UNITS/ML 3 ML PEN SC SCH (20:25)
[2019-02-09] MEDS ORDERED: PNEUMOCOCCAL ADMINISTRATION CHARGE ONE (21:00)
[2019-02-09] MEDS ORDERED: PNEUMOCOCCAL POLYSACCHARIDES 25 MCG/0.5 ML VIAL/SYR IM ONE (21:00)
[2019-02-09] MEDS: PIPERACILLIN/TAZOBACTAM 4.5 GM in DEXTROSE 5% 100 ML IV SCH (22:26)
[2019-02-10] MEDS: FUROSEMIDE 40 MG in SYRINGE 0 ML IV SCH (06:05)
--- NOTE | 2019-02-10 07:14 | Nephrology Consultation ---
Date of Consultation February 10, 2019 Assessment & Plan (1) BRANDEE (acute kidney injury): Baseline mid 2's, presented 02/09 w/ creat 3.6; worse today w/ diuresis to 4.2 DDX includes nephrotic syndrome from likeliest diabetic nephropathy; minimal change dz, interstitial nephritis, paraproteinemia also on differential; could have ATN from infections in legs; could have at least in theory vasculitis given elevated ESR -ordered UA -- still pending and reodered stat; also ordered prot/creat -some hypotension noted w/ SBP 90-100s >> monitor; ideally SBP would be 110-120s consistently > lowered lasix as below >had one dose vanco only; not continued no no need to monitor -cont to hold ACEI; change ASA as below -ordered renal u/s -no elias needed for now -w/ am labs ordered spep, upep; would hold off on gallagher work up as glomerular disease not top of differential though TTE findings and ESR notable Present on Admission?: Yes (2) CKD (chronic kidney disease) stage 4, GFR 15-29 ml/min: Baseline creatinine had been mid 2's; hx of nephrotic range proteinuria; presented w/ elements of nephrotic syndrome; advanced CKD from DM, HTN, obesity, macro/microvascular disease -low threshold for serologic w/u proteinuria -no indication for ASA 325 here and would reduce to 81 mg daily -needs OP CKD clinic f/u; has already told me he has no $ for this Present on Admission?: Yes (3) CHF (congestive heart failure): -agree w/ bid lasix 40 mg IV, low Na diet, 1.8L FR -diastolic HF grade 3, restrictive physiology; sigmoid septum >> should have spironolactone added when appropriate but deferred for now Present on Admission?: Yes (4) Volume overload: standing wt 02/10 114.8 kg first standing wt this admission. -follow daily standing wts -cont sodium/ FR -on lasix 40 mg IV bid currently >> will change to lasix 20 IV 3 daily doses given q6h (6A, noon, 6P) w/o MN dose (timed so as not to disrupt sleep) -given L pleural effusion and tobacco hx, low threshold for f/u CXR or non con CT chest/ consider diagnostic tap (admittedly challenging in AC pt) -reviewed w/ pharmacy and no need to concentrate ABTX which have minimal salt and volume load Present on Admission?: Yes History of Present Illness Reason for Consultation: brandee on ckd 4 Requesting Physician: Dr johnson Attending Physician: Mathew Johnson MD History of Present Illness 78 y/o M whom I'm asked to see for brandee on CKD after he was admitted yesterday for mgt of volume overlaod, suspected in part from acute on chronic HF. PMH includes DM, A fib w/ RVR dx'd 11/2018, CKD 4 w/ baseline creatinine 2.5, CARLOS ALBERTO not adherent w/ CPAP, EF 55% w/ grade 3 diastolic dysfunction, tobacco abuse. He presented w/ BL leg pain and swelling: there was some concern for LE cellulitis as well on presentation and is being covered w/ IV antibiotics. 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 His baseline creatinine is mid 2's as of 12/2018 w/ 4 gm proteinuria; he has only intermittent chemistries in [facility] but appears to run in low 2's for several years prior to this. He has followed in CKD clinic in past w/ Dr Logan; not seen since 07/2017. Allergies Allergy/AdvReac Type Severity Reaction Status Date / Time codeine AdvReac Intermediate NAUSEA Verified 02/09/19 14:25 Home Medications Home Medications Medication Instructions Recorded Confirmed Type aspirin 325 mg PO DAILY 02/09/19 02/09/19 History cholecalciferol (vitamin D3) 2,000 units PO DAILY 02/09/19 02/09/19 History furosemide 40 mg PO BID 02/09/19 02/09/19 History glipizide 10 mg PO BID 02/09/19 02/09/19 History liraglutide [Victoza 2-Fernando] 1.2 mg SUBCUT DAILY 02/09/19 02/09/19 History lisinopril 40 mg PO DAILY 02/09/19 02/09/19 History lovastatin 80 mg PO HS 02/09/19 02/09/19 History metoprolol succinate [Toprol XL] 50 mg PO DAILY 02/09/19 02/09/19 History potassium chloride 20 meq PO DAILY 02/09/19 02/09/19 History warfarin 5 mg PO DIRECTED 02/09/19 02/09/19 History Patient History Medical History Atrial fibrillation CHF (congestive heart failure) CKD (chronic kidney disease), stage IV Diabetes Dyslipidemia HTN (hypertension), benign No significant past surgical history CARLOS ALBERTO (obstructive sleep apnea) Tobacco use disorder Family History Mother Cancer Social History Communication Ability: Effective Beliefs That Will Affect Care: None marital status: Other Information That Helps Us Care for You: No Feels Safe at Home: Yes Safety Concerns: Feels Safe At This Time Smoking Status: Current every day smoker Hx Alcohol Use: No Hx Substance Use: No Review of Systems Constitutional: + fatigue, + weakness and + weight gain Eyes: no worsening vision Ear, Nose, Mouth, Throat: no dry mouth Respiratory: + dyspnea on exertion; no cough and no dyspnea Cardiovascular: + dyspnea on exertion and + edema; no chest pain and no palpitations Gastrointestinal: no abdominal pain, no vomiting and no change in bowel habits Genitourinary (Male): no dysuria, no difficulty urinating, no urinary hesitancy and no hematuria Musculoskeletal: no back pain denies nsaid use except as rx'd Integumentary: as per Subjective / HPI, + lesions, + non-healing lesions and + bleeding lesions Neurologic: + generalized weakness Psychiatric: no behavioral changes Endocrine: + fatigue Hematologic / Lymphatic: no easy bleeding Physical Exam Vital Signs (Past 24 Hours): Last Vital Signs Temp 36.9 C 02/10/19 04:11 Pulse 79 02/10/19 04:17 Resp 18 02/10/19 04:11 BP 98/58 L 02/10/19 04:11 Pulse Ox 95 02/10/19 04:11 Constitutional: well developed and well nourished lying flat on RA on his L side w/o resp distress Eyes: EOM intact bilaterally ENMT: Ears: no external ear abnormality Nose: no external nose abnormality Mouth: + dry oral mucous membranes Neck: no nuchal rigidity Respiratory: normal respiratory effort Auscultation: + breath sounds absent (L posterior field 1/2 way up) and + diminished lung sounds Cardiovascular: Rate/Rhythm: + abnormal rate and + abnormal rhythm Gastrointestinal (Abdomen): Inspection/Auscultation: normal bowel sounds Percussion/Palpation: abdomen soft; abdomen nontender Musculoskeletal: Extremities: strength 5/5 throughout Skin: + lesion (BLE w/ blisters, excoriations), + skin tightening and + erythema Neurologic: valle, fluent speech, no tremor; hard of hearing Psychiatric: Orientation: oriented to person, oriented to place, oriented to time and cooperative Speech: normal rate/rhythm/volume of speech Insight: + limited insight pt thinks his is in room but she is not; slight confusion /challenging recall in places Genitourinary: no elias Results & Data Laboratory Results Abnormal lab results 02/09/19 02/09/19 02/09/19 Range/Units 14:50 14:50 14:50 WBC 12.23 H (4.8-10.8) K/uL RBC 4.02 L (4.7-6.1) M/uL Hgb 11.4 L (14.0-18.0) g/dL Hct 35.0 L (42-52) % RDW Std Deviation 51.6 H (36.4-46.3) fL RDW Coeff of Kiah 16.1 H (11.5-14.5) % Neut # (Auto) 10.88 H (1.4-6.5) K/uL Lymph # (Auto) 0.39 L (1.2-3.4) K/uL [place] # (Auto) 0.93 H (0.11-0.59) K/uL ESR 84 H (0-14) mm/hr PT (9.0-12.0) Seconds INR (0.9-1.1) APTT (21.0-31.0) Seconds Sodium 135 L (136-145) mmol/L BUN 57 H (7-18) mg/dl Creatinine 3.62 H (0.6-1.4) mg/dl Glucose 235 H (70-99) mg/dl POC Glucose (70-99) Calcium 8.4 L (8.5-10.1) mg/dl AST 51 H (15-37) U/L C-Reactive Protein 26.90 H (0-0.29) mg/dl Total Protein 6.2 L (6.4-8.2) gm/dl Albumin 1.9 L (3.4-5.0) gm/dl Globulin 4.3 H (2.5-4.0) gm/dl Albumin/Globulin Ratio 0.4 L (0.9-2) Nasal Screen MRSA (PCR) (Negative) 02/09/19 02/09/19 02/09/19 Range/Units 14:50 17:20 20:22 WBC (4.8-10.8) K/uL RBC (4.7-6.1) M/uL Hgb (14.0-18.0) g/dL Hct (42-52) % RDW Std Deviation (36.4-46.3) fL RDW Coeff of Kiah (11.5-14.5) % Neut # (Auto) (1.4-6.5) K/uL Lymph # (Auto) (1.2-3.4) K/uL [place] # (Auto) (0.11-0.59) K/uL ESR (0-14) mm/hr PT 32.5 H (9.0-12.0) Seconds INR 3.5 H (0.9-1.1) APTT 56.0 H* (21.0-31.0) Seconds Sodium (136-145) mmol/L BUN (7-18) mg/dl Creatinine (0.6-1.4) mg/dl Glucose (70-99) mg/dl POC Glucose 261 H (70-99) Calcium (8.5-10.1) mg/dl AST (15-37) U/L C-Reactive Protein (0-0.29) mg/dl Total Protein (6.4-8.2) gm/dl Albumin (3.4-5.0) gm/dl Globulin (2.5-4.0) gm/dl Albumin/Globulin Ratio (0.9-2) Nasal Screen MRSA (PCR) Positive A (Negative) Diagnostic Findings cxr CXR: 1. Mild cardiomegaly with volume overload/congestive change and mild pulmonary edema. Given the asymmetric density at the left lung base, underlying left lower lobe pneumonia cannot be excluded. Correlate clinically for infectious symptoms. 2. Suspected left pleural effusion. TTE normal LV chamber size; mild concentric LVH, EF 55-60%, no LV wall motion abnormalities, grade 3 diastolic dysfunction, restrictive physiology; valves ok (1) CHF (congestive heart failure) Heart failure chronicity: acute on chronic Heart failure type: diastolic Qualified Code(s): I50.33 - Acute on chronic diastolic (congestive) heart failure
[2019-02-10 08:34] LABS: Hematocrit (blood only) 34.2 % (42-52); Hemoglobin 11.1 g/dL (14.0-18.0); Mean Corpuscular Hgb Conc 32.5 g/dL (32-36); Mean Corpuscular Volume 87.5 fL (80-100); Mean Platelet Volume 10.1 fL (7.4-10.4); Nucleated RBC # (auto) 0.02 K/uL (0-0); Nucleated RBC % (auto) 0.3 %; Platelet Count 231 K/uL (130-400); RDW Coefficient of Variation 16.3 % (11.5-14.5); RDW Standard Deviation 52.3 fL (36.4-46.3); Red Blood Count 3.91 M/uL (4.7-6.1); White Blood Count 9.05 K/uL (4.8-10.8)
[2019-02-10] MEDS: DAPTOmycin 375 MG in SYRINGE 0 ML IV SCH (08:35)
[2019-02-10] MEDS: POTASSIUM CHLORIDE 10 MEQ TABCR PO SCH ×2 (08:35→21:19)
[2019-02-10] MEDS: METOPROLOL SUCC 50MG EXT REL TAB PO SCH (08:36)
[2019-02-10] MEDS: INSULIN ASPART 100 UNITS/ML 3 ML PEN SC SCH ×4 (08:40→21:21)
[2019-02-10] MEDS: INSULIN GLARGINE SOLOSTAR 100 UNITS/ML 3 ML PEN SC SCH ×2 (08:40→21:20)
[2019-02-10 08:48] LABS: Estimated Average Glucose 174 mg/dl; Hemoglobin A1C 7.7 % (4.5-5.6)
[2019-02-10 08:53] LABS: INR 3.2 (0.9-1.1); Prothrombin Time 30.3 Seconds (9.0-12.0)
[2019-02-10] MEDS: ASPIRIN 81 MG ECTAB PO SCH (08:54)
[2019-02-10] MEDS ORDERED: FUROSEMIDE 40 MG/4 ML VIAL IV SCH (09:00)
[2019-02-10] MEDS ORDERED: ASPIRIN 325 MG ECTAB PO SCH (09:00)
[2019-02-10 09:05] LABS: BUN Creatinine Ratio 15.1 (10-20); Calcium 8.3 mg/dl (8.5-10.1); Creatinine Clr Calc Pharmacy 19.1 ml/min; Est GFR (African American) 14.8; Est GFR (Non-African American) 12.8; Magnesium 2.3 mg/dl (1.8-2.4); Potassium 4.5 mmol/L (3.5-5.1)
[2019-02-10] MEDS: PIPERACILLIN/TAZOBACTAM 4.5 GM in DEXTROSE 5% 100 ML IV SCH ×2 (11:37→23:47)
--- NOTE | 2019-02-10 11:43 | Consultation Report ---
DATE OF CONSULTATION: 02/10/2019 CONSULTATION REQUESTED BY: Dr. Johnson. REASON FOR CONSULTATION: CHF with volume overload. HISTORY OF PRESENT ILLNESS: Mr. Yuan is a 78-year-old gentleman who was only seen once by my cardiology colleague, Dr. Gradne, as an outpatient for newly discovered atrial fibrillation in December of this year. He presented to [facility] on 02/09/2019 with complaints of bilateral lower extremity pain. The patient provides a poor history, but states that his lower extremities have been in a great deal of pain for a little over a week now, particularly in the right. He notes that his dog scratches his legs occasionally and his legs have become very, very tender, very painful and very red and also swollen. The patient states that he is compliant with his medication; however, all other chart indications are that he was not taking his medication for 3 days. He presented to [facility] and was found to be volume overloaded with significant lower extremity edema along with bilateral lower extremity cellulitis and acute on chronic renal failure. The patient was admitted to telemetry, started on diuretics and antibiotics and currently states that his right leg is still painful, but otherwise feeling well. He denies experiencing any chest pain, shortness of breath, palpitations, lightheadedness, dizziness, or syncope. PAST SURGICAL HISTORY: 1. Cataracts. 2. Colonoscopy. 3. Back surgery. MEDICAL ILLNESSES: 1. Recently diagnosed atrial fibrillation with a CHADS-VASc score of 4. 2. Hypertension. 3. Diabetes. 4. Hyperlipidemia. 5. Obstructive sleep apnea, not on nocturnal CPAP. 6. Stage IV chronic kidney disease. 7. Diastolic dysfunction with normal LV systolic function. 8. Renal osteodystrophy. FAMILY HISTORY: Noncontributory. SOCIAL HISTORY: The patient is a lifelong smoker and continues to smoke. Denies alcohol or recreational drug use. REVIEW OF SYSTEMS: As per HPI, all other review of systems reviewed and negative at this time. ALLERGIES: CODEINE. MEDICATIONS AN OUTPATIENT: 1. Lasix 40 mg b.i.d. 2. Lisinopril 40 mg daily. 3. Metoprolol succinate 50 mg daily. 4. Potassium chloride 20 mEq daily. 5. Coumadin as directed by the Coumadin clinic. 6. Insulin as directed. 7. Lovastatin 80 mg daily. 8. Aspirin 81 mg daily. 9. Victoza. PHYSICAL EXAMINATION: VITALS: Temperature 36.9, pulse 102, respiratory rate 12, blood pressure 100/64. GENERAL: Awake, alert, oriented x3, no acute distress. HEENT: Normocephalic, atraumatic. Pupils equal, round, reactive to light and accommodation. Extraocular muscles intact. Anicteric sclerae. Moist mucous membranes. NECK: No JVD, no bruit. CARDIOVASCULAR: Irregular, irregular. Unable to appreciate murmurs, rubs or gallops. PULMONARY: Clear to auscultation bilaterally. No rales, rhonchi, or wheezing. ABDOMEN: Bowel sounds x4. Distended, no rebound, guarding, tenderness. No organomegaly. EXTREMITIES: Bilateral lower extremity erythema and +2 bilateral lower extremity pitting edema. Very tender to palpation. +1 pedal pulses bilaterally. SKIN: Warm and dry. TEST RESULTS: 2D echocardiogram was read today as normal LV chamber size with mild concentric LVH, sigmoid appearing septum, normal LV systolic function, EF 55-60%, no segmental left ventricular wall motion abnormalities were noted, grade 3 diastolic dysfunction, restrictive physiology, mild aortic valve sclerosis without stenosis, mild mitral regurgitation, mild left atrial enlargement. LABORATORY STUDIES OF SIGNIFICANCE: Sodium 135, potassium 4.5, BUN 63, creatinine 4.2. INR 3.2. IMPRESSION: 1. Bilateral lower extremity cellulitis. 2. Acute volume overload likely a combination of diastolic dysfunction and worsening renal function. 3. Questionable medical noncompliance. 4. Atrial fibrillation, relatively well rate controlled with a supratherapeutic INR. 5. Hypertension, controlled. RECOMMENDATIONS: It was my pleasure to see Mr. Yuan in consultation today. I agree with our nephrology colleagues that the patient does need to be diuresed and he has been started on 40 mg of IV Lasix b.i.d. and we will see how he diureses with his renal function. Otherwise, from a cardiac standpoint he is already on beta solis and is supratherapeutic on his INR. Consideration will be given to adding spironolactone for his diastolic dysfunction pending how his renal function trends. It will be our pleasure to follow him along with you during his hospital stay.
--- NOTE | 2019-02-10 16:50 | Hospitalist Progress Note ---
Date of Service February 10, 2019 Assessment & Plan (1) CHF (congestive heart failure): Volume Overload: Due to CHF, BRANDEE Acute on chronic diastolic CHF exacerbation --CXR showed:Mild cardiomegaly with volume overload/congestive change and mild pulmonary edema. Given the asymmetric density at the left lung base, underlying left lower lobe pneumonia cannot be excluded. Correlate clinically for infectious symptoms. Suspected left pleural effusion. --Did not take his medications since last 3 days --Questionable Complaince --ECHO: Grade III diastolic dysfunciton Hold PO diuretics Continue IV Lasix 40mg BID Daily weight, I/Os, fluid restriction Low sodium diet Oxygen support PRN Monitor renal function/electrolytes Appreciate Cardiology Input Afib RVR: Diagnosed in Nov 2018 Monitor electrolytes Did not take his medications since 3 days Continue metoprolol Monitor INR:3.5>>3.2 Hold Coumadin today Left Lower Lobe Pneumonia-POA CXR:asymmetric density at the left lung base noted Elevated Procalcitonin Continue IV Abx Blood Cultures: pending B/L LE cellulitis: Normal Lactate levels Venous Doppler:There is no sonographic evidence of deep venous thrombosis identified in the right lower extremity. Ankle X ray:No acute fracture or evidence of osteomyelitis. Moderate soft tissue swelling. Foot X ray:No acute fractures. Dorsal soft tissue swelling No destructive lesions are visualized Continue Daptomycin and Zosyn Wound Cultures:Group G beta Strep Wound Care BRANDEE on CKD IV: Hold Lisinopril, Statin Avoid NSAIDs Baseline Cr:2.5 in Nov 2018 Cr:3.62>>4.17 Avoid nephro toxic agents Monitor renal function Consulted Nephrology DM II hold oral diabetic meds Last A1c:7.1 in Nov 2018 ISS, basal Insulin, Accu checks, Diabetic diet Updated A1C:7.7 Dyslipidemia Hold Statin for now Mechanical Fall: PT/OT Fall precuations CARLOS ALBERTO Not on CPAP Tobacco use disorder Refuses Nicotine Patch DVT Px: INR supratherapeutic Code Status DNI/DNR as per my discussion with patient Disposition: PT/OT prior to discharge Subjective Patient is seen and examined at bedside Less SOB Still has significant B/L LE swelling Denies chest pain, dizziness, nausea No family at bedside Physical Exam Vital Signs (Past 24 Hours): Last Vital Signs Temp 36.6 C 02/10/19 14:55 Pulse 94 H 02/10/19 14:55 Resp 20 02/10/19 14:55 BP 103/53 L 02/10/19 14:55 Pulse Ox 92 02/10/19 14:55 Physical Exam: Physical Exam: Vitals signs as noted above General Appearance:Obese, no apparent distress Head: normocephalic, Atraumatic Eyes: normal inspection, EOMI Neck: supple, Trachea midline Respiratory/Chest: Decreased breath sounds, CTA Cardiovascular: Irregularly Irregular, No murmur, +Tachycardia Abdomen/GI:Soft, Non tender, Bowel sounds present Extremities/Musculoskelatal:normal inspection, B/L LE swelling, erythema, small open wounds Neurologic/Psych:AAOX3, grossly no focal neurological deficits Skin: normal color, warm Results & Data Laboratory Results Short CBC 02/10/19 Range/Units 08:02 WBC 9.05 (4.8-10.8) K/uL Hgb 11.1 L (14.0-18.0) g/dL Hct 34.2 L (42-52) % Plt Count 231 (130-400) K/uL BMP 02/10/19 08:02 Sodium 135 L Potassium 4.5 Chloride 99 Carbon Dioxide 31 BUN 63 H Creatinine 4.17 H D Glucose 137 H Calcium 8.3 L (1) CHF (congestive heart failure) Heart failure type: diastolic Heart failure chronicity: acute on chronic Qualified Code(s): I50.33 - Acute on chronic diastolic (congestive) heart failure
[2019-02-10 18:57] LABS: Appearance Urine Cloudy (Clear); Bilirubin Urine Negative (Negative); Blood Urine Trace (Negative); Color Urine Yellow; Epithelial Cell Urine Auto >30 /lpf (0-5); Glucose Urine UA Trace (Negative); Ketones Urine Negative (Negative); Leukocyte Esterase Urine Negative (Negative); Nitrite Urine Negative (Negative); Protein Urine 3+ (Negative); RBC Urine Automated 0-4 /hpf (0-4); Specific Gravity Urine 1.022 (1.000-1.030); Urobilinogen Urine Negative (Negative)
[2019-02-10] MEDS: FUROSEMIDE 20 MG in SYRINGE 0 ML IV SCH (19:00)
[2019-02-10 19:06] LABS: Bacteria Urine Automated 2+ (Negative)
[2019-02-10 19:12] LABS: Total Protein Urine Random 245.9 mg/dl (0-11.9)
[2019-02-11] MEDS ORDERED: ALBUT/IPRATROP 3MG/0.5MG NEB 3 ML VIAL NEB STA (01:42)
[2019-02-11 02:09] LABS: Basophils # (auto) 0.02 K/uL (0-0.2); Basophils % (auto) 0.2 %; Eosinophils # (auto) 0.05 K/uL (0-0.5); Eosinophils % (auto) 0.5 %; Hematocrit (blood only) 32.2 % (42-52); Hemoglobin 10.5 g/dL (14.0-18.0); Immature Granulocytes # (auto) 0.03 K/uL (0.00-0.02); Immature Granulocytes % (auto) 0.3 %; Lymphocytes # (auto) 0.68 K/uL (1.2-3.4); Lymphocytes % (auto) 7.3 %; Mean Corpuscular Hgb Conc 32.6 g/dL (32-36); Mean Corpuscular Volume 86.1 fL (80-100); Monocytes # (auto) 1.26 K/uL (0.11-0.59); Monocytes % (auto) 13.6 %; Neutrophils # (auto) 7.25 K/uL (1.4-6.5); Neutrophils % (auto) 78.1 %; Nucleated RBC # (auto) 0.03 K/uL (0-0); Nucleated RBC % (auto) 0.3 %; Platelet Count 269 K/uL (130-400); RDW Coefficient of Variation 16.1 % (11.5-14.5); RDW Standard Deviation 51.4 fL (36.4-46.3); Red Blood Count 3.74 M/uL (4.7-6.1); White Blood Count 9.29 K/uL (4.8-10.8)
[2019-02-11 02:12] LABS: HCO3 ABG 27 mmol/L (19-24); Oxygen Saturation ABG 92.7 % (90-95); PCO2 ABG 54 mmHg (35-46); PO2 ABG 71 mm/Hg (80-95); pH ABG 7.32 (7.35-7.45)
[2019-02-11 02:13] LABS: Allen Test Pos (Pos)
[2019-02-11 02:20] LABS: Partial Thromboplastin Ratio 1.7; Partial Thromboplastin Time 44.8 Seconds (21.0-31.0)
[2019-02-11 02:35] LABS: BUN Creatinine Ratio 16.9 (10-20); Creatinine Clr Calc Pharmacy 18.1 ml/min; Est GFR (African American) 13.9; Magnesium 2.3 mg/dl (1.8-2.4); Potassium 4.4 mmol/L (3.5-5.1)
[2019-02-11] MEDS ORDERED: ALBUMIN 25% 50 ML with FUROSEMIDE 40 MG IV ONE (03:15)
[2019-02-11] MEDS: FUROSEMIDE 20 MG in SYRINGE 0 ML IV SCH ×3 (05:13→17:11)
[2019-02-11] MEDS: INSULIN ASPART 100 UNITS/ML 3 ML PEN SC SCH ×4 (08:13→20:32)
[2019-02-11] MEDS: INSULIN GLARGINE SOLOSTAR 100 UNITS/ML 3 ML PEN SC SCH ×2 (08:14→20:33)
[2019-02-11] MEDS: METOPROLOL SUCC 50MG EXT REL TAB PO SCH (08:15)
[2019-02-11] MEDS: ASPIRIN 81 MG ECTAB PO SCH (08:15)
[2019-02-11] MEDS: POTASSIUM CHLORIDE 10 MEQ TABCR PO SCH (08:15)
[2019-02-11 08:33] LABS: INR 1.8 (0.9-1.1); Prothrombin Time 17.8 Seconds (9.0-12.0)
--- NOTE | 2019-02-11 08:48 | XRay Report ---
SINGLE VIEW CHEST CLINICAL HISTORY: Hypoxia. FINDINGS: An AP, portable, upright chest radiograph is compared to study dated 02/09/2019. The examina tion is degraded by portable technique and patient rotation. The heart is enlarged and there is athe rosclerotic calcification of the thoracic aorta. There is pulmonary vascular congestion with mild int erstitial edema. There are small pleural effusions. Airspace consolidation is seen at the left lung b ase. No pneumothorax is seen. The skeletal structures are osteopenic. The bony thorax is grossly inta ct. A metallic foreign body projects over the right chest. IMPRESSION: 1. Cardiomegaly with evidence of congestive failure. This is similar to previous. 2. There are small pleural effusions, with consolidation seen at the left lung base. This could prese nt atelectasis and/or an infectious/inflammatory pneumonitis. Clinical correlation will be required. Electronically signed by: Aman Valverde M.D. 02/11/2019 8:47 AM
--- NOTE | 2019-02-11 10:20 | Ultrasound Report ---
ULTRASOUND KIDNEYS AND BLADDER CLINICAL HISTORY: Acute on chronic renal insufficiency. COMPARISON STUDY: No priors. TECHNIQUE: Real-time, grayscale, and color flow sonography of the kidneys and bladder is performed. I mages are reviewed in the transverse and longitudinal planes. FINDINGS: Kidneys: The kidneys demonstrate mild cortical atrophy and are normal in echotexture. The right kidne y measures 12.2 cm in length and the left kidney measures 12.2 cm in length. There is no hydronephro sis. No shadowing renal calculi are identified. There is no sonographic evidence of contour deforming renal mass lesion. There is trace nonspecific perinephric fluid noted on the right. Bladder: The bladder is decompressed and grossly unremarkable. Ureteral jets were not seen. IMPRESSION: 1. The kidneys demonstrate mild cortical atrophy and are without hydronephrosis. 2. The bladder was decompressed and grossly unremarkable. Electronically signed by: Aman Valverde M.D. 02/11/2019 10:18 AM
[2019-02-11] MEDS: PIPERACILLIN/TAZOBACTAM 4.5 GM in DEXTROSE 5% 100 ML IV SCH ×2 (11:26→23:30)
[2019-02-11] MEDS ORDERED: WARFARIN SOD 5 MG TAB PO SCH ×2 (11:30→16:00)
--- NOTE | 2019-02-11 11:30 | Nephrology Progress Note ---
Date of Service February 11, 2019 Assessment & Plan (1) BRANDEE (acute kidney injury): Baseline creatinine [id number] in low 2's w/ one reading in past 10 mos at 2.5 on 12/29, presented 02/09 w/ creat 3.6; worse today w/ diuresis to 4.4. As OP his lasix had been increased about a week prior to admission from 20 mg daily (dose x years) to 40 mg bid. DDX includes nephrotic syndrome from likeliest diabetic nephropathy; minimal change dz, interstitial nephritis, paraproteinemia also on differential; could have ATN from infections in legs; could have at least in theory vasculitis given elevated ESR; >likeliest dx though is nonoliguric ischemic ATN from HF/hemodynamic changes w/ recent AF dx and cellulitis. 1.7 gm proteinuria daily and very concentrated urine w/ a few granular casts/ not clean catch/ no UTI; also trace blood/ glucose. renal u/s unrevealing -some hypotension noted w/ SBP 90-100s >> monitor; ideally SBP would be 110-120s consistently > lowered lasix as below; his BP improved slightly today but still borderline -cont to hold ACEI -no elias needed for now -w/ am labs ordered spep, upep; would hold off on gallagher work up as glomerular disease not top of differential though TTE findings and ESR notable (2) CKD (chronic kidney disease) stage 4, GFR 15-29 ml/min: Baseline creatinine had been mid 2's; hx of nephrotic range proteinuria; presented w/ elements of nephrotic syndrome; advanced CKD from DM, HTN, obesity, macro/microvascular disease -low threshold for serologic w/u of proteinuria -pls be sure at d/c he goes out on ASA 81 and not 325 mg daily -needs OP CKD clinic f/u; has already told me he has no $ for this (3) CHF (congestive heart failure): -agree w/ tid 20 mg IV, low Na diet, 1.8L FR -reinforced Low Na diet -diastolic HF grade 3, restrictive physiology; sigmoid septum >> should have spironolactone added when appropriate but deferred for now (4) Volume overload: standing wt 02/10 114.8 kg first standing wt this admission> up 1/2 kg today. we have little baseline data on his OP weight: looks like was about 118kg in 2017; then in 2018 has 110 kg one time reading; then 2019 has been about 125 kg. -follow daily standing wts - first stnading one is 115.3 on 02/11 -cont sodium/ FR -cont lasix 20 IV 3 daily doses given q6h (6A, noon, 6P) w/o MN dose (timed so as not to disrupt sleep) -given L pleural effusion and tobacco hx, low threshold for f/u CXR or non con CT chest -reviewed w/ pharmacy and no need to concentrate ABTX which have minimal salt and volume load Subjective Had ABG, CXR at 0200 >> mild hypoxemia and respiratory acidemia on 4L, unchanged HF on XR. when I walked into room, empty bag of chips at bedside -- states his ate them; not able to give much detail on hx. states he is not sob, cannot tell if swelling worse; denies voiding c/o, chest pain ; not wearing 02 Physical Exam Vital Signs (Past 24 Hours): Last Vital Signs Temp 36.6 C 02/11/19 07:44 Pulse 70 02/11/19 07:44 Resp 20 02/11/19 07:44 BP 109/61 02/11/19 07:44 Pulse Ox 91 02/11/19 07:44 Constitutional: well developed, well nourished and + obese leaning over on side of bed askew w/ legs dangling, not wearing 02 Eyes: EOM intact bilaterally ENMT: Ears: no external ear abnormality Nose: no external nose abnormality Mouth: + dry oral mucous membranes Neck: no nuchal rigidity Respiratory: normal respiratory effort Auscultation: + diminished lung sounds Cardiovascular: Rate/Rhythm: + abnormal rate and + abnormal rhythm Extremities: + edema (4+ pedal, 3+ BL to mid thigh; some facial edema) Gastrointestinal (Abdomen): Inspection/Auscultation: normal bowel sounds Percussion/Palpation: abdomen soft; abdomen nontender Musculoskeletal: Extremities: strength 5/5 throughout Skin: + lesion (BLE w/ blisters, excoriations), + skin tightening and + erythema (worse R foot than L) Neurologic: some myoclonic jerks Psychiatric: Orientation: oriented to person, oriented to place, oriented to time and cooperative Speech: normal rate/rhythm/volume of speech Insight: + limited insight Genitourinary: no elias Results & Data Laboratory Results Abnormal lab results 02/10/19 02/10/19 02/10/19 Range/Units 11:08 16:12 20:10 RBC (4.7-6.1) M/uL Hgb (14.0-18.0) g/dL Hct (42-52) % RDW Std Deviation (36.4-46.3) fL RDW Coeff of Kiah (11.5-14.5) % Immature Gran # (Auto) (0.00-0.02) K/uL Neut # (Auto) (1.4-6.5) K/uL Lymph # (Auto) (1.2-3.4) K/uL Mayes # (Auto) (0.11-0.59) K/uL Absolute Nucleated RBC (0-0) K/uL PT (9.0-12.0) Seconds INR (0.9-1.1) APTT (21.0-31.0) Seconds ABG pH (7.35-7.45) ABG pCO2 (35-46) mmHg ABG pO2 (80-95) mm/Hg ABG HCO3 (19-24) mmol/L Sodium (136-145) mmol/L BUN (7-18) mg/dl Creatinine (0.6-1.4) mg/dl Glucose (70-99) mg/dl POC Glucose 207 H 142 H 176 H (70-99) Calcium (8.5-10.1) mg/dl Urine Appearance (Clear) Urine Protein (Negative) Urine Glucose (UA) (Negative) Urine Blood (Negative) U Epithel Cells (Auto) (0-5) /lpf Urine Bacteria (Auto) (Negative) Granular Casts (0) /lpf U Random Total Protein (0-11.9) mg/dl Protein/Creatinin Ratio (0-0.2) 02/10/19 02/10/19 02/11/19 Range/Units Unknown Unknown 01:59 RBC 3.74 L (4.7-6.1) M/uL Hgb 10.5 L (14.0-18.0) g/dL Hct 32.2 L (42-52) % RDW Std Deviation 51.4 H (36.4-46.3) fL RDW Coeff of Kiah 16.1 H (11.5-14.5) % Immature Gran # (Auto) 0.03 H (0.00-0.02) K/uL Neut # (Auto) 7.25 H (1.4-6.5) K/uL Lymph # (Auto) 0.68 L (1.2-3.4) K/uL Mayes # (Auto) 1.26 H (0.11-0.59) K/uL Absolute Nucleated RBC 0.03 H (0-0) K/uL PT (9.0-12.0) Seconds INR (0.9-1.1) APTT (21.0-31.0) Seconds ABG pH (7.35-7.45) ABG pCO2 (35-46) mmHg ABG pO2 (80-95) mm/Hg ABG HCO3 (19-24) mmol/L Sodium (136-145) mmol/L BUN (7-18) mg/dl Creatinine (0.6-1.4) mg/dl Glucose (70-99) mg/dl POC Glucose (70-99) Calcium (8.5-10.1) mg/dl Urine Appearance Cloudy H (Clear) Urine Protein 3+ H (Negative) Urine Glucose (UA) Trace H (Negative) Urine Blood Trace H (Negative) U Epithel Cells (Auto) >30 H (0-5) /lpf Urine Bacteria (Auto) 2+ H (Negative) Granular Casts 1-5 H (0) /lpf U Random Total Protein 245.9 H (0-11.9) mg/dl Protein/Creatinin Ratio 1.7 H (0-0.2) 02/11/19 02/11/19 02/11/19 Range/Units 01:59 01:59 01:59 RBC (4.7-6.1) M/uL Hgb (14.0-18.0) g/dL Hct (42-52) % RDW Std Deviation (36.4-46.3) fL RDW Coeff of Kiah (11.5-14.5) % Immature Gran # (Auto) (0.00-0.02) K/uL Neut # (Auto) (1.4-6.5) K/uL Lymph # (Auto) (1.2-3.4) K/uL Mayes # (Auto) (0.11-0.59) K/uL Absolute Nucleated RBC (0-0) K/uL PT (9.0-12.0) Seconds INR (0.9-1.1) APTT 44.8 H (21.0-31.0) Seconds ABG pH 7.32 L (7.35-7.45) ABG pCO2 54 H (35-46) mmHg ABG pO2 71 L (80-95) mm/Hg ABG HCO3 27 H (19-24) mmol/L Sodium 134 L (136-145) mmol/L BUN 76 H (7-18) mg/dl Creatinine 4.39 H (0.6-1.4) mg/dl Glucose 115 H (70-99) mg/dl POC Glucose (70-99) Calcium 8.0 L (8.5-10.1) mg/dl Urine Appearance (Clear) Urine Protein (Negative) Urine Glucose (UA) (Negative) Urine Blood (Negative) U Epithel Cells (Auto) (0-5) /lpf Urine Bacteria (Auto) (Negative) Granular Casts (0) /lpf U Random Total Protein (0-11.9) mg/dl Protein/Creatinin Ratio (0-0.2) / Range/Units 01:59 RBC (4.7-6.1) M/uL Hgb (14.0-18.0) g/dL Hct (42-52) % RDW Std Deviation (36.4-46.3) fL RDW Coeff of Kiah (11.5-14.5) % Immature Gran # (Auto) (0.00-0.02) K/uL Neut # (Auto) (1.4-6.5) K/uL Lymph # (Auto) (1.2-3.4) K/uL Mayes # (Auto) (0.11-0.59) K/uL Absolute Nucleated RBC (0-0) K/uL PT 17.8 H (9.0-12.0) Seconds INR 1.8 H (0.9-1.1) APTT (21.0-31.0) Seconds ABG pH (7.35-7.45) ABG pCO2 (35-46) mmHg ABG pO2 (80-95) mm/Hg ABG HCO3 (19-24) mmol/L Sodium (136-145) mmol/L BUN (7-18) mg/dl Creatinine (0.6-1.4) mg/dl Glucose (70-99) mg/dl POC Glucose (70-99) Calcium (8.5-10.1) mg/dl Urine Appearance (Clear) Urine Protein (Negative) Urine Glucose (UA) (Negative) Urine Blood (Negative) U Epithel Cells (Auto) (0-5) /lpf Urine Bacteria (Auto) (Negative) Granular Casts (0) /lpf U Random Total Protein (0-11.9) mg/dl Protein/Creatinin Ratio (0-0.2) Diagnostic Findings renal u/s unremarkable; 12 cm kidneys BL; no stones cxr 0200 1. Cardiomegaly with evidence of congestive failure. This is similar to previous. 2. There are small pleural effusions, with consolidation seen at the left lung base. This could present atelectasis and/or an infectious/inflammatory pneumonitis. Clinical correlation will be required. (1) CHF (congestive heart failure) Heart failure chronicity: acute on chronic Heart failure type: diastolic Qualified Code(s): I50.33 - Acute on chronic diastolic (congestive) heart failure
--- NOTE | 2019-02-11 12:37 | Cardiology Progress Note ---
Date of Service February 11, 2019 Assessment & Plan (1) Volume overload: multifactorial worsening renal function and diastolic dysfunction renal function worsening will defer to our nephrology colleagues on further diuretic management (2) CKD (chronic kidney disease) stage 4, GFR 15-29 ml/min: neprhology following closely (3) CHF (congestive heart failure): diastolic dysfunction with preserved LV systolic function Subjective Pt seen and examined, at bedside, currently arguing with nursing staff while he has an unlit cigarette in his mouth. States that he's fine and he'd wish people would stop bothering him. Denies complaint. tele reviewed: sinus rhythm without arrhythmia or significant ectopy Review of Systems All systems reviewed & are unremarkable except as noted in HPI & below Physical Exam Vital Signs (Past 24 Hours): Last Vital Signs Temp 36.6 C 02/11/19 11:31 Pulse 80 02/11/19 11:31 Resp 18 02/11/19 11:31 BP 116/61 02/11/19 11:31 Pulse Ox 94 02/11/19 11:31 Physical Exam: General: Awake, alert and oriented x 3. No acute distress. HEENT: Normocephalic, atraumatic. Pupils equal, round and reactive to light and accommodation. Extraocular muscles are intact. Anicteric sclera. Moist mucous membranes. Neck: No JVD. No bruit. Cardiovascular: Irregularly irregular. 3/6 mid to late systolic ejection murmur, greatest at the right sternal border, second intercostal space with radiation to the bilateral carotids. No rubs. Pulmonary: Clear to auscultation bilaterally. No rales, rhonchi, or wheezing. Abdomen: Bowel sounds x 4, soft. No rebound, guarding or tenderness. No organomegaly. Extremities: No clubbing, cyanosis or edema. +2 pedal pulses bilaterally. Skin: Warm and dry. (1) CHF (congestive heart failure) Heart failure type: diastolic Heart failure chronicity: acute on chronic Qualified Code(s): I50.33 - Acute on chronic diastolic (congestive) heart failure
[2019-02-11] MEDS: HEPARIN SOD 5,000 UNIT/0.5 ML VIAL SQ SCH ×2 (12:55→20:34)
--- NOTE | 2019-02-11 15:59 | Hospitalist Progress Note ---
Date of Service February 11, 2019 Assessment & Plan (1) CHF (congestive heart failure): Volume Overload: Due to CHF, BRANDEE Acute on chronic diastolic CHF exacerbation --CXR showed:Mild cardiomegaly with volume overload/congestive change and mild pulmonary edema. Given the asymmetric density at the left lung base, underlying left lower lobe pneumonia cannot be excluded. Correlate clinically for infectious symptoms. Suspected left pleural effusion. --Did not take his medications since last 3 days --Questionable Compliance --ECHO: Grade III diastolic dysfunciton Hold PO diuretics Continue IV Lasix Daily weight, I/Os, fluid restriction Low sodium diet Oxygen support PRN Monitor renal function/electrolytes Appreciate Cardiology Input Repeat CXR:unchanged from prior March need 2 step prior to discharge Afib RVR: Diagnosed in Nov 2018 Monitor electrolytes Rate controlled Did not take his medications since 3 days Continue metoprolol Monitor INR:3.5>>3.2>>1.8 Resume Coumadin today Heparin SQ until INR is therapeutic Left Lower Lobe Pneumonia-POA CXR:asymmetric density at the left lung base noted Elevated Procalcitonin Continue IV Abx Blood Cultures:No growth to date B/L LE cellulitis: Normal Lactate levels Venous Doppler:There is no sonographic evidence of deep venous thrombosis identified in the right lower extremity. Ankle X ray:No acute fracture or evidence of osteomyelitis. Moderate soft tissue swelling. Foot X ray:No acute fractures. Dorsal soft tissue swelling No destructive lesions are visualized Continue Daptomycin and Zosyn Wound Cultures:Group G beta Strep, Satph Wound Care BRANDEE on CKD IV: Likely ATN Hold Lisinopril, Statin Avoid NSAIDs Baseline Cr:2.5 in Nov 2018 Cr:3.62>>4.17>>4.39 Avoid nephro toxic agents Monitor renal function Appreciate Nephrology Input DM II hold oral diabetic meds Last A1c:7.1 in Nov 2018 ISS, basal Insulin, Accu checks, Diabetic diet Updated A1C:7.7 Dyslipidemia Hold Statin for now Mechanical Fall: PT/OT Fall precuations CARLOS ALBERTO Not on CPAP Tobacco use disorder Refuses Nicotine Patch DVT Px: Coumadin Code Status DNI/DNR Disposition: PT/OT prior to discharge Subjective Patient is seen and examined at bedside Eager to get discharged No new complaints Keeps pulling off oxygen as per staff CXR today--unchanged from prior Less SOB B/L LE swelling/erythema better Denies chest pain, dizziness, nausea Family at bedside Physical Exam Vital Signs (Past 24 Hours): Last Vital Signs Temp 36.4 C L 02/11/19 14:51 Pulse 80 02/11/19 14:51 Resp 20 02/11/19 14:51 BP 118/55 L 02/11/19 14:51 Pulse Ox 94 02/11/19 14:51 Physical Exam: Physical Exam: Vitals signs as noted above General Appearance:Obese, no apparent distress Head: normocephalic, Atraumatic Eyes: normal inspection, EOMI Neck: supple, Trachea midline Respiratory/Chest: Decreased breath sounds, CTA Cardiovascular: Irregularly Irregular, + systolic murmur Abdomen/GI:Soft, Non tender, Bowel sounds present Extremities/Musculoskelatal:normal inspection, B/L LE swelling, erythema, small open wounds Neurologic/Psych:AAOX3, grossly no focal neurological deficits Skin: normal color, warm (1) CHF (congestive heart failure) Heart failure type: diastolic Heart failure chronicity: acute on chronic Qualified Code(s): I50.33 - Acute on chronic diastolic (congestive) heart failure
[2019-02-12] MEDS: FUROSEMIDE 20 MG in SYRINGE 0 ML IV SCH ×2 (05:11→11:36)
[2019-02-12 08:38] LABS: INR 1.5 (0.9-1.1); Prothrombin Time 14.8 Seconds (9.0-12.0)
[2019-02-12] MEDS: METOPROLOL SUCC 50MG EXT REL TAB PO SCH (08:44)
[2019-02-12] MEDS: ASPIRIN 81 MG ECTAB PO SCH (08:44)
[2019-02-12] MEDS: DAPTOmycin 375 MG in SYRINGE 0 ML IV SCH (08:45)
[2019-02-12] MEDS: INSULIN GLARGINE SOLOSTAR 100 UNITS/ML 3 ML PEN SC SCH ×2 (08:45→20:32)
[2019-02-12] MEDS: HEPARIN SOD 5,000 UNIT/0.5 ML VIAL SQ SCH ×2 (08:46→20:33)
[2019-02-12] MEDS: INSULIN ASPART 100 UNITS/ML 3 ML PEN SC SCH ×4 (08:46→20:33)
[2019-02-12 08:55] LABS: BUN Creatinine Ratio 19.1 (10-20); Creatinine Clr Calc Pharmacy 18.5 ml/min; Est GFR (African American) 13.6; Est GFR (Non-African American) 11.7; Magnesium 2.4 mg/dl (1.8-2.4); Potassium 4.4 mmol/L (3.5-5.1)
--- NOTE | 2019-02-12 10:58 | CT Scan Report ---
CT head/brain wo con CLINICAL HISTORY: Altered mental status CONFUSION COMPARISON STUDY: No previous studies for comparison. TECHNIQUE: Axial CT of the brain is performed from the vertex to the skull base. IV contrast was not administered for this examination. A dose lowering technique was utilized adhering to the principles of ALARA. CT DOSE: 1151.75 mGy.cm FINDINGS: There is asymmetric low density extra-axial fluid in the right frontal region, likely representing a small chronic right subdural hygroma. This measures 4 mm in thickness. There is no acute hemorrhage. There is no significant midline shift. No calvarial fractures are visualized. There is no CT evidence of acute cortical infarction There are patchy white matter hypodensities likely on a small vessel basis. There is no evidence of pathologic ventricular dilatation. There is no evidence of acute sinusitis IMPRESSION: 1. Suspected small chronic right convexity subdural hygroma 2. No evidence of acute hemorrhage 3. White matter hypodensities, likely small vessel ischemic basis Electronically signed by: Lino Mae M.D. 02/12/2019 10:57 AM
[2019-02-12] MEDS: PIPERACILLIN/TAZOBACTAM 4.5 GM in DEXTROSE 5% 100 ML IV SCH ×2 (11:36→23:29)
--- NOTE | 2019-02-12 12:16 | Neurology Consultation ---
Date of Consultation February 12, 2019 Encephalopathy Acute on chronic diastolic CHF Pneumonia Cellulitis CARLOS ALBERTO HTN Afib HLD Coagulopathy Obesity DNR/DNI A 78 year old male with multiple medical comorbidities including Afib on Coumadin admitted for acute on chronic diastolic CHF and acute kidney injury. He has history of CKD stage IV. He was also found to have left lower lobe pneumonia on admission and R>L lower extremity cellulitis. Started on Daptomycin and Zosyn. COumadin was held due to supratheraptuic INR and restarted once INR trended down. Neurology was consulted for encephalopathy this morning. CT head was Negative for acute hemorrhage or acute stroke. - Patient awake this afternoon although disoriented to location. He has some confusion and appears lethargic. He is aware of the family at bedside and his comprehension is intact although I had to repeat myself several times. - I suspect this patient is likely having some hospital aquired delirium as family reports symptoms of confusion have only been present since the patient was admitted. He is high risk for delirium. - Overall his examine is no focal. I do not see any obvious signs to suggest acute stroke. He is currently on ASA and Coumadin. - Would defer on MRI imaging at his time which was discussed with family. - Recommend to continue treatment of current right leg cellulitis and CHF. Would try to avoid sedating medications if possible. History of Present Illness Attending Physician: Mathew Johnson MD HPI: A 78-year-old male admitted on 02/09/2019 for CHF and lower extremity edema. He has a PMH of DM II, CHF, CKD IV, atrial fibrillation, dyslipidemia, CARLOS ALBERTO, tobacco use disorder, and HTN. Patient presented for lower extremity swelling. He was noted to be non compiant with his medications. He was found to be in acute CHF with volume overload. Also found to have BRANDEE on CKD and a pnuemonia and cellultiis. Started on Antibiotics and lasix. Nephrology following. Neurology was consulted this morning for altered mental status. Coumadin was held for INR>3. INR trending down les than 2 and Couadmin was restarted. He is on asa and coumadin at home. CT head showed a chronic hygroma and small vessel ischemic changes. Allergies Allergy/AdvReac Type Severity Reaction Status Date / Time codeine AdvReac Intermediate NAUSEA Verified 02/09/19 14:25 Home Medications Home Medications Medication Instructions Recorded Confirmed Type aspirin 325 mg PO DAILY 02/09/19 02/09/19 History cholecalciferol (vitamin D3) 2,000 units PO DAILY 02/09/19 02/09/19 History furosemide 40 mg PO BID 02/09/19 02/09/19 History glipizide 10 mg PO BID 02/09/19 02/09/19 History liraglutide [Victoza 2-Fernando] 1.2 mg SUBCUT DAILY 02/09/19 02/09/19 History lisinopril 40 mg PO DAILY 02/09/19 02/09/19 History lovastatin 80 mg PO HS 02/09/19 02/09/19 History metoprolol succinate [Toprol XL] 50 mg PO DAILY 02/09/19 02/09/19 History potassium chloride 20 meq PO DAILY 02/09/19 02/09/19 History warfarin 5 mg PO DIRECTED 02/09/19 02/09/19 History Patient History Medical History Atrial fibrillation CHF (congestive heart failure) CKD (chronic kidney disease), stage IV Diabetes Dyslipidemia HTN (hypertension), benign No significant past surgical history CARLOS ALBERTO (obstructive sleep apnea) Tobacco use disorder Family History Mother Cancer Social History Communication Ability: Effective Beliefs That Will Affect Care: None marital status: Other Information That Helps Us Care for You: No Feels Safe at Home: Yes Safety Concerns: Feels Safe At This Time Smoking Status: Current every day smoker Hx Alcohol Use: No Hx Substance Use: No Physical Exam Vital Signs (Past 24 Hours): Last Vital Signs Temp 36.5 C 02/12/19 11:47 Pulse 74 02/12/19 11:47 Resp 20 02/12/19 11:47 BP 129/67 02/12/19 11:47 Pulse Ox 98 02/12/19 11:47 Physical Exam: EXAM: Constitutional: appears acutely ill, sleeping when I entered, obese male Head and Face: normocephalic and atraumatic Eyes: normal lids, normal conjunctiva Respiratory: normal effort Cardiovascular: normal pulses Abdomen: distended Skin: right leg > leg is erythematous and tender to palpation, both legs are edemetous Psychiatric: normal affect NEUROLOGIC EXAMINATION: Appearance: no acute distress Orientation: lethargic and disoriented to place, oriented to age and person Mental Status: lethargic Memory: Poor Attention: decreased Knowledge: Poor Language: following commands, left to right oriented, comprehension is inact Speech: no dysarthria Cranial Nerves: CN 2 - no visual defect on confrontation and pupils round, equal, reactive to light CN 3, 4, 6 - left eye EOMI , lazy eye on the right which is chronic , no gaze preference CN 5 - facial sensation intact CN 7 - symmetric with smile CN 8 - intact hearing CN 9, 10 - palate symmetric, no teeth CN 11 - good shoulder shrug CN 12 - tongue midline Gait: deferred Coordination: no ataxia with finger to nose testing Sensory: tender to palpation in right leg Muscle Tone: normal Muscle exam: Moving both lower extremities agaist gravity akthough unable to hold up against gravity for sustained period of time, moving upper extremities well inclduing hands and fingers Reflexes: Hypoactive, negative beavers Results & Data Diagnostic Findings CT Head : 1. Suspected small chronic right convexity subdural hygroma 2. No evidence of acute hemorrhage 3. White matter hypodensities, likely small vessel ischemic basis
[2019-02-12] MEDS: FUROSEMIDE 60 MG in SYRINGE 0 ML IV SCH ×2 (14:46→17:13)
--- NOTE | 2019-02-12 15:31 | Nephrology Progress Note ---
Date of Service February 12, 2019 Assessment & Plan (1) BRANDEE (acute kidney injury): Baseline creatinine [id number] in low 2's w/ one reading in past 10 mos at 2.5 on 12/29, presented 02/09 w/ creat 3.6; worse today w/ diuresis to 4.5. As OP his lasix had been increased about a week prior to admission from 20 mg daily (dose x years) to 40 mg bid. Also not taking his meds for a few days before admission. hx nephrotic range proteinuria in past >likeliest dx though is nonoliguric ischemic ATN from HF/hemodynamic changes w/ recent AF dx and cellulitis. 1.7 gm proteinuria daily and very concentrated urine w/ a few granular casts/ not clean catch/ no UTI; also trace blood/ glucose. renal u/s unrevealing -we are making little headway w/ limiting lasix >> increased to 60 mg iv tid and will follow -cont to hold ACEI -no elias needed for now -w/ am labs ordered spep, upep; would hold off on gallagher work up as glomerular disease not top of differential though TTE findings and ESR notable (2) CKD (chronic kidney disease) stage 4, GFR 15-29 ml/min: Baseline creatinine had been mid 2's; hx of nephrotic range proteinuria; presented w/ elements of nephrotic syndrome; advanced CKD from DM, HTN, obesity, macro/microvascular disease -low threshold for serologic w/u of proteinuria -pls be sure at d/c he goes out on ASA 81 and not 325 mg daily -needs OP CKD clinic f/u; has already told me he has no $ for this ->>did d/w family may well have progression of dz and now be heading to ckd5 (3) CHF (congestive heart failure): -cont as above lasix; cont low Na diet, 1.8L FR -diastolic HF grade 3, restrictive physiology; sigmoid septum >> should have spironolactone added when appropriate but deferred for now (4) Volume overload: standing wt 02/10 114.8 kg first standing wt this admission> up 1/2 kg today. we have little baseline data on his OP weight: looks like was about 118kg in 2017; then in 2018 has 110 kg one time reading; then 2019 has been about 125 kg. -follow daily standing wts - first stnading one is 115.3 on 02/11; large gain on wts today -- following wts next few days will show which is correct 02/11 or 02/12 -cont sodium/ FR -cont lasix 60 IV 3 daily doses given q6h (6A, noon, 6P) w/o MN dose (timed so as not to disrupt sleep) -given L pleural effusion and tobacco hx, low threshold for f/u non con CT chest or abg -reviewed w/ pharmacy and no need to concentrate ABTX which have minimal salt and volume load Subjective seen on rounds just after noon. daughter and bedside; family and nursing report progresive confusion. pt on interacting w/ me today seems less confused/ answers full/appropriate sentences. daughter states swelling a bit but not much worse. pt c/o RLE pain worse than usual. no sob but + w/ exertion. ambulation limited; to bathroom only w/ assist. some incontinence so I/O not complete Physical Exam Vital Signs (Past 24 Hours): Last Vital Signs Temp 36.3 C L 02/12/19 15:14 Pulse 77 02/12/19 15:14 Resp 24 02/12/19 15:14 BP 118/68 02/12/19 15:14 Pulse Ox 93 02/12/19 15:14 Constitutional: well developed, well nourished and + obese on 4L 02ncl lying in bed quiet - positioned so as not to disturb pt Eyes: EOM intact bilaterally ENMT: Ears: no external ear abnormality Nose: no external nose abnormality Mouth: + dry oral mucous membranes Neck: no nuchal rigidity Respiratory: normal respiratory effort, + prolonged expiratory phase and + paradoxical thoraco-abdominal movement Auscultation: + diminished lung sounds Cardiovascular: Rate/Rhythm: + abnormal rate and + abnormal rhythm Extremities: + edema (4+ pedal, 3+ BL to mid thigh; today less facial edema) Gastrointestinal (Abdomen): Inspection/Auscultation: normal bowel sounds Percussion/Palpation: abdomen soft; abdomen nontender Musculoskeletal: Extremities: strength 5/5 throughout Skin: + lesion (BLE w/ blisters, excoriations), + skin tightening and + erythema (worse R foot than L) superviolaceous cresent rash R arch Neurologic: valle, fluent speech, tired Psychiatric: Orientation: oriented to person, oriented to place, oriented to time and cooperative Speech: normal rate/rhythm/volume of speech Insight: + limited insight Results & Data Laboratory Results Abnormal lab results 02/11/19 02/11/19 02/12/19 Range/Units 17:02 20:23 07:22 PT 14.8 H (9.0-12.0) Seconds INR 1.5 H (0.9-1.1) BUN (7-18) mg/dl Creatinine (0.6-1.4) mg/dl Glucose (70-99) mg/dl POC Glucose 151 H 208 H (70-99) Ammonia (11-32) umol/L 02/12/19 02/12/19 02/12/19 Range/Units 07:22 07:23 10:13 PT (9.0-12.0) Seconds INR (0.9-1.1) BUN 86 H (7-18) mg/dl Creatinine 4.47 H (0.6-1.4) mg/dl Glucose 111 H (70-99) mg/dl POC Glucose 126 H (70-99) Ammonia < 10.0 L (11-32) umol/L 02/12/19 Range/Units 11:30 PT (9.0-12.0) Seconds INR (0.9-1.1) BUN (7-18) mg/dl Creatinine (0.6-1.4) mg/dl Glucose (70-99) mg/dl POC Glucose 218 H (70-99) Ammonia (11-32) umol/L (1) CHF (congestive heart failure) Heart failure type: diastolic Heart failure chronicity: acute on chronic Qualified Code(s): I50.33 - Acute on chronic diastolic (congestive) heart failure
[2019-02-12] MEDS ORDERED: WARFARIN SOD 6 MG TAB PO SCH (16:00)
--- NOTE | 2019-02-12 18:01 | Hospitalist Progress Note ---
Date of Service February 12, 2019 Assessment & Plan (1) CHF (congestive heart failure): Volume Overload: Due to CHF, BRANDEE Acute on chronic diastolic CHF exacerbation --CXR showed:Mild cardiomegaly with volume overload/congestive change and mild pulmonary edema. Given the asymmetric density at the left lung base, underlying left lower lobe pneumonia cannot be excluded. Correlate clinically for infectious symptoms. Suspected left pleural effusion. --Did not take his medications since last 3 days --Questionable Compliance --ECHO: Grade III diastolic dysfunciton Hold PO diuretics Continue IV Lasix per Nephrology Daily weight, I/Os, fluid restriction Low sodium diet Oxygen support PRN Monitor renal function/electrolytes Appreciate Cardiology Input Repeat CXR:unchanged from prior May need 2 step prior to discharge Lasix dose increased today Encephalopathy Likely delirium CT head: No acute changes Normal Ammonia level ABG:Mild Hypercarbia Reorient frequently Monitor BUN Avoid Narcotics Appreciate neurology Input Afib RVR: Diagnosed in Nov 2018 Monitor electrolytes Rate controlled Did not take his medications since 3 days Continue metoprolol Monitor INR:3.5>>3.2>>1.5 Increase Coumadin to 6mg today Heparin SQ until INR is therapeutic Left Lower Lobe Pneumonia-POA CXR:asymmetric density at the left lung base noted Elevated Procalcitonin Continue IV Abx Blood Cultures:No growth to date Recheck Lactate, Procal, CT chest in AM B/L LE cellulitis: Normal Lactate levels Venous Doppler:There is no sonographic evidence of deep venous thrombosis identified in the right lower extremity. Ankle X ray:No acute fracture or evidence of osteomyelitis. Moderate soft tissue swelling. Foot X ray:No acute fractures. Dorsal soft tissue swelling No destructive lesions are visualized Continue Daptomycin and Zosyn Wound Cultures:Group G beta Strep, Staph Wound Care BRANDEE on CKD IV: Likely ATN Hold Lisinopril, Statin Avoid NSAIDs Baseline Cr:2.5 in Nov 2018 Renal USD:The kidneys demonstrate mild cortical atrophy and are without hydronephrosis. Cr:3.62>>4.17>>4.47 Avoid nephro toxic agents Monitor renal function Appreciate Nephrology Input May need dialysis if continues to worsen DM II hold oral diabetic meds Last A1c:7.1 in Nov 2018 ISS, basal Insulin, Accu checks, Diabetic diet Updated A1C:7.7 Dyslipidemia Hold Statin for now Mechanical Fall: PT/OT Fall precuations CARLOS ALBERTO Not on CPAP Tobacco use disorder Refuses Nicotine Patch DVT Px: Coumadin Code Status DNI/DNR Disposition: PT/OT prior to discharge Subjective Patient is seen and examined at bedside Seemed to be confused today CT head showed no acute changes Denies chest pain, SOB Has B/L LE swelling/erythema Also denies chest pain, dizziness, nausea Family at bedside Physical Exam Vital Signs (Past 24 Hours): Last Vital Signs Temp 36.3 C L 02/12/19 15:14 Pulse 77 02/12/19 15:14 Resp 24 02/12/19 15:14 BP 118/68 02/12/19 15:14 Pulse Ox 93 02/12/19 15:14 Physical Exam: Physical Exam: Vitals signs as noted above General Appearance:Obese, no apparent distress Head: normocephalic, Atraumatic Eyes: normal inspection, EOMI Neck: supple, Trachea midline Respiratory/Chest: Decreased breath sounds, CTA Cardiovascular: Irregularly Irregular, + systolic murmur Abdomen/GI:Soft, Non tender, Bowel sounds present Extremities/Musculoskelatal:normal inspection, B/L LE swelling, erythema, small open wounds Neurologic/Psych:AAOX3, grossly no focal neurological deficits Skin: normal color, warm Results & Data Laboratory Results [facility] 02/12/19 07:22 Sodium 139 Potassium 4.4 Chloride 100 Carbon Dioxide 29 BUN 86 H Creatinine 4.47 H Glucose 111 H Calcium 9.0 (1) CHF (congestive heart failure) Heart failure type: diastolic Heart failure chronicity: acute on chronic Qualified Code(s): I50.33 - Acute on chronic diastolic (congestive) heart failure
[2019-02-13] MEDS: FUROSEMIDE 60 MG in SYRINGE 0 ML IV SCH ×3 (06:39→18:19)
[2019-02-13 07:27] LABS: Hematocrit (blood only) 36.5 % (42-52); Hemoglobin 11.6 g/dL (14.0-18.0); Mean Corpuscular Hgb Conc 31.8 g/dL (32-36); Mean Corpuscular Volume 87.7 fL (80-100); Mean Platelet Volume 9.4 fL (7.4-10.4); Platelet Count 359 K/uL (130-400); RDW Coefficient of Variation 15.9 % (11.5-14.5); RDW Standard Deviation 51.2 fL (36.4-46.3); Red Blood Count 4.16 M/uL (4.7-6.1); White Blood Count 11.75 K/uL (4.8-10.8)
[2019-02-13 07:38] LABS: INR 1.5 (0.9-1.1); Prothrombin Time 15.2 Seconds (9.0-12.0)
[2019-02-13 08:24] LABS: Calcium 8.9 mg/dl (8.5-10.1); Est GFR (African American) 13.1; Est GFR (Non-African American) 11.3; Potassium 3.9 mmol/L (3.5-5.1)
--- NOTE | 2019-02-13 08:57 | CT Scan Report ---
CT SCAN OF THE CHEST WITHOUT IV CONTRAST CLINICAL HISTORY: Hypoxia. COMPARISON STUDY: Chest x-ray dated 02/11/2019. TECHNIQUE: CT scan of the thorax was performed from the thoracic inlet to the upper abdomen. Images are reviewed in the axial, sagittal, and coronal planes. IV contrast was not administered for this ex amination as per the referring clinician. A dose lowering technique was utilized adhering to the [facility] of [facility]. CT DOSE: 694.09 mGy.cm FINDINGS: Thyroid: Imaged portions of the thyroid gland are normal in size and attenuation. Thoracic aorta: There is atherosclerotic calcification of the thoracic aorta, which is normal in [place] and demonstrates standard 3-vessel arch anatomy. Heart: The heart is enlarged and without pericardial effusion. Pericardial thickening is noted. The c oronary arteries are densely calcified. Lungs and pleural spaces: There are small pleural effusions with bibasilar atelectasis. Diffuse intra lobular septal thickening indicates congestive failure. No airspace consolidation is seen typical for pneumonia. Minimal secretions are noted in the distal trachea. Mediastinum: A precarinal node measures 14 mm in short axis. Additional subcentimeter mediastinal lym ph nodes are identified. Elicia: Not well assessed without IV contrast. Axillae: There is no axillary lymphadenopathy. Upper abdomen: There is a small hiatal hernia. A 3.4 cm right adrenal nodule and a 2.4 cm left adrena l nodule meet CT criteria for fat-containing adenomas. Skeletal structures: The skeletal structures are osteopenic. No lytic or blastic bony lesions are see n. Soft tissues: Gynecomastia is noted. A small metallic foreign body is present within the right ventra l chest wall on image #[id number]. IMPRESSION: 1. Cardiomegaly with evidence of congestive failure. 2. Small pleural effusions. Electronically signed by: Aman Valverde M.D. 02/13/2019 8:55 AM
[2019-02-13] MEDS: ASPIRIN 81 MG ECTAB PO SCH (09:09)
[2019-02-13] MEDS: INSULIN GLARGINE SOLOSTAR 100 UNITS/ML 3 ML PEN SC SCH ×2 (09:10→21:31)
[2019-02-13] MEDS: METOPROLOL SUCC 50MG EXT REL TAB PO SCH (09:14)
[2019-02-13] MEDS: HEPARIN SOD 5,000 UNIT/0.5 ML VIAL SQ SCH ×2 (09:14→21:33)
[2019-02-13] MEDS: INSULIN ASPART 100 UNITS/ML 3 ML PEN SC SCH ×4 (09:20→21:32)
[2019-02-13] MEDS: PIPERACILLIN/TAZOBACTAM 4.5 GM in DEXTROSE 5% 100 ML IV SCH ×2 (12:13→22:49)
[2019-02-13] MEDS ORDERED: PNEUMOCOCCAL POLYSACCHARIDES 25 MCG/0.5 ML VIAL/SYR IM ONE (14:45)
[2019-02-13] MEDS ORDERED: PNEUMOCOCCAL ADMINISTRATION CHARGE ONE (14:45)
--- NOTE | 2019-02-13 15:17 | Neurology Progress Note ---
Date of Service February 13, 2019 Assessment & Plan (1) Acute delirium: 1. continue antibiotic therapy 2. delirium is resolving with antibiotic treatment 3. pain mgt per primary team 4. no further recommendations from neurology stand point but will be available for questions concerns. Supervising Physician Co-Signing Physician Notes I have seen and discussed above patient with Dr Jimmy Bledsoe. Patient less confused today. Likely infectious / metabollic with superimposed delirium. No further neurology work up necessary at this time. Please call with any further questions or concerns. Benny Flores is a 78 year old male with PMH DM II, CHF, CKD IV, AF, HLD, CARLOS ALBERTO, tobacco use disorder, HTN history of worsening bilateral leg swelling and pain since 1 week duration. He was having bilateral leg swelling with erythema which has increase. his daughter is in the room and states he mn "My dog scratches my legs on and off". Patient was noted to be noncompliant with office visits as per outpatient documentation. He complains of leg pain which is 9/10 intensity, sharp to dull, associated with difficulty with ambulation and generalized weakness. He also noted some clear discharge from small wounds on his legs. He reports history of fall yesterday denies any history of syncope, head trauma. He has been having dry cough since last few weeks. He states having palpitations intermittently and admits to not taking his medications since last 3 days. His daughter is in the room today and states he is more alert today but still in alot of pain. denies CP, SOB, abdominal pain, N, V. Physical Exam Vital Signs (Past 24 Hours): Last Vital Signs Temp 36.7 C 02/13/19 15:05 Pulse 59 L 02/13/19 15:05 Resp 20 02/13/19 15:05 BP 122/68 02/13/19 15:05 Pulse Ox 90 02/13/19 15:05 Gen: alert NAD lungs Course breath sounds CV RRR strength no assessed didn't want to move neuro: oriented to 2019, hospital, January. RLE: erythema with partial healing scab, no discharge or wheeping Results & Data Laboratory Results Abnormal lab results 02/12/19 02/13/19 02/13/19 Range/Units 20:00 07:14 07:14 WBC 11.75 H (4.8-10.8) K/uL RBC 4.16 L (4.7-6.1) M/uL Hgb 11.6 L (14.0-18.0) g/dL Hct 36.5 L (42-52) % MCHC 31.8 L (32-36) g/dL RDW Std Deviation 51.2 H (36.4-46.3) fL RDW Coeff of Kiah 15.9 H (11.5-14.5) % PT 15.2 H (9.0-12.0) Seconds INR 1.5 H (0.9-1.1) BUN (7-18) mg/dl Creatinine (0.6-1.4) mg/dl Glucose (70-99) mg/dl POC Glucose 146 H (70-99) Procalcitonin (0-0.5) ng/ml 02/13/19 02/13/19 02/13/19 Range/Units 07:14 07:14 07:20 WBC (4.8-10.8) K/uL RBC (4.7-6.1) M/uL Hgb (14.0-18.0) g/dL Hct (42-52) % MCHC (32-36) g/dL RDW Std Deviation (36.4-46.3) fL RDW Coeff of Kiah (11.5-14.5) % PT (9.0-12.0) Seconds INR (0.9-1.1) BUN 88 H (7-18) mg/dl Creatinine 4.60 H* (0.6-1.4) mg/dl Glucose 101 H (70-99) mg/dl POC Glucose 105 H (70-99) Procalcitonin 1.50 H (0-0.5) ng/ml 02/13/19 Range/Units 11:18 WBC (4.8-10.8) K/uL RBC (4.7-6.1) M/uL Hgb (14.0-18.0) g/dL Hct (42-52) % MCHC (32-36) g/dL RDW Std Deviation (36.4-46.3) fL RDW Coeff of Kiah (11.5-14.5) % PT (9.0-12.0) Seconds INR (0.9-1.1) BUN (7-18) mg/dl Creatinine (0.6-1.4) mg/dl Glucose (70-99) mg/dl POC Glucose 179 H (70-99) Procalcitonin (0-0.5) ng/ml Diagnostic Findings CT chest- Cardiomegaly with evidence of congestive failure. Small pleural effusions.
[2019-02-13] MEDS ORDERED: WARFARIN SOD 3 MG TAB PO SCH (16:00)
[2019-02-13] MEDS ORDERED: WARFARIN SOD 4 MG TAB PO SCH (16:00)
--- NOTE | 2019-02-13 18:09 | Hospitalist Progress Note ---
Date of Service February 13, 2019 Assessment & Plan (1) CHF (congestive heart failure): Volume Overload: Due to CHF, BRANDEE Acute on chronic diastolic CHF exacerbation --CXR showed:Mild cardiomegaly with volume overload/congestive change and mild pulmonary edema. Given the asymmetric density at the left lung base, underlying left lower lobe pneumonia cannot be excluded. Correlate clinically for infectious symptoms. Suspected left pleural effusion. --Did not take his medications since last 3 days --Questionable Compliance --ECHO: Grade III diastolic dysfunciton Hold PO diuretics Continue IV Lasix per Nephrology Daily weight, I/Os, fluid restriction Low sodium diet Oxygen support PRN Monitor renal function/electrolytes Appreciate Cardiology Input May need 2 step prior to discharge CT chest done today: suggestive of CHF Encephalopathy Likely delirium CT head: No acute changes Normal Ammonia level ABG:Mild Hypercarbia Reorient frequently Monitor BUN Avoid Narcotics Appreciate neurology Input Afib RVR: Diagnosed in Nov 2018 Monitor electrolytes Rate controlled Did not take his medications since 3 days Continue metoprolol Monitor INR:3.5>>3.2>>1.5 Increase Coumadin to 7mg today Heparin SQ until INR is therapeutic Left Lower Lobe Pneumonia-POA CXR:asymmetric density at the left lung base noted Procalcitonin trending down Continue IV Abx for now Blood Cultures:No growth to date B/L LE cellulitis: Normal Lactate levels Venous Doppler:There is no sonographic evidence of deep venous thrombosis identified in the right lower extremity. Ankle X ray:No acute fracture or evidence of osteomyelitis. Moderate soft tissue swelling. Foot X ray:No acute fractures. Dorsal soft tissue swelling No destructive lesions are visualized Continue Daptomycin and Zosyn Wound Cultures:Group G beta Strep, Staph Wound Care RBANDEE on CKD IV: Likely ATN Hold Lisinopril, Statin Avoid NSAIDs Baseline Cr:2.5 in Nov 2018 Renal USD:The kidneys demonstrate mild cortical atrophy and are without hydronephrosis. Cr:3.62>>4.17>>4.47>>4.6 Avoid nephro toxic agents Monitor renal function Appreciate Nephrology Input May need dialysis if continues to worsen DM II hold oral diabetic meds Last A1c:7.1 in Nov 2018 ISS, basal Insulin, Accu checks, Diabetic diet Updated A1C:7.7 Dyslipidemia Hold Statin for now Mechanical Fall: PT/OT Fall precuations CARLOS ALBERTO Not on CPAP Tobacco use disorder Refuses Nicotine Patch DVT Px: Coumadin Code Status DNI/DNR Disposition: PT/OT Clinical Administrative Coordinator consulted for discharge planning Subjective Patient is seen and examined at bedside Less confused today Reports mild leg pain Denies chest pain, SOB, nausea, dizziness B/L LE swelling/erythema slowly improving Physical Exam Vital Signs (Past 24 Hours): Last Vital Signs Temp 36.7 C 02/13/19 15:05 Pulse 79 02/13/19 15:57 Resp 20 02/13/19 15:05 BP 122/68 02/13/19 15:05 Pulse Ox 90 02/13/19 15:05 Physical Exam: Physical Exam: Vitals signs as noted above General Appearance:Obese, no apparent distress Head: normocephalic, Atraumatic Eyes: normal inspection, EOMI Neck: supple, Trachea midline Respiratory/Chest: Decreased breath sounds, CTA Cardiovascular: Irregularly Irregular, + systolic murmur Abdomen/GI:Soft, Non tender, Bowel sounds present Extremities/Musculoskelatal:normal inspection, B/L LE swelling, erythema, small open wounds Neurologic/Psych:AAOX3, grossly no focal neurological deficits Skin: normal color, warm Results & Data Laboratory Results Short CBC 02/13/19 Range/Units 07:14 WBC 11.75 H (4.8-10.8) K/uL Hgb 11.6 L (14.0-18.0) g/dL Hct 36.5 L (42-52) % Plt Count 359 (130-400) K/uL BMP 02/13/19 07:14 Sodium 141 Potassium 3.9 Chloride 103 Carbon Dioxide 31 BUN 88 H Creatinine 4.60 H* Glucose 101 H Calcium 8.[address] Chest: 1. Cardiomegaly with evidence of congestive failure. 2. Small pleural effusions. (1) CHF (congestive heart failure) Heart failure type: diastolic Heart failure chronicity: acute on chronic Qualified Code(s): I50.33 - Acute on chronic diastolic (congestive) heart failure
--- NOTE | 2019-02-13 19:59 | Nephrology Progress Note ---
Date of Service February 13, 2019 Assessment & Plan (1) BRANDEE (acute kidney injury): Baseline creatinine 6400-2313 in low 2's w/ one reading in past 10 mos at 2.5 on 12/29, presented 02/09 w/ creat 3.6; worse w/ diuresis to 4.6. As OP his lasix had been increased about a week prior to admission from 20 mg daily (dose x years) to 40 mg bid. Also not taking his meds for a few days before admission. hx nephrotic range proteinuria in past >likeliest dx though is nonoliguric ischemic ATN from HF/hemodynamic changes w/ recent AF dx and cellulitis. 1.7 gm proteinuria daily and very concentrated urine w/ a few granular casts/ not clean catch/ no UTI; also trace blood/ glu cose. renal u/s unrevealing -cont recently increased to 60 mg iv tid and will follow -cont to hold ACEI -no elias needed for now -labs today stable; cont daily bmp -f/u pending spep, upep; would hold off on gallagher work up as glomerular disease not top of differential though TTE findings and ESR notable (2) CKD (chronic kidney disease) stage 4, GFR 15-29 ml/min: Baseline creatinine had been mid 2's; hx of nephrotic range proteinuria; presented w/ elements of nephrotic syndrome; advanced CKD from DM, HTN, obesity, macro/microvascular disease -low threshold for serologic w/u of proteinuria -pls be sure at d/c he goes out on ASA 81 and not 325 mg daily -needs OP CKD clinic f/u; has already told me he has no $ for this ->>did d/w family may well have progression of dz and now be heading to ckd5; cannot r/o need for dialysis this admission (3) CHF (congestive heart failure): -cont as above lasix; cont low Na diet, 1.8L FR -diastolic HF grade 3, restrictive physiology; sigmoid septum >> should have spironolactone added when appropriate but deferred for now (4) Volume overload: standing wt 02/10 114.8 kg first standing wt this admission> up 1/2 kg today. we have little baseline data on his OP weight: looks like was about 118kg in 2017; then in 2018 has 110 kg one time reading; then 2019 has been about 125 kg. -follow daily standing wts - first standing one is 115.3 on 02/11; large gain on wts today/yesterday -- following wts next few days will show which is correct 02/11 or 02/12; d/t pt weakness accurate wts a challenge and team efforts appreciated -cont sodium/ FR -cont lasix 60 IV 3 daily doses given q6h (6A, noon, 6P) w/o MN dose (timed so as not to disrupt sleep) -given L pleural effusion and tobacco hx, low threshold for non con CT chest or repeat abg -reviewed w/ pharmacy and no need to concentrate ABTX which have minimal salt and volume load Subjective seen on rounds this am -- untouched breakfast at bedside (seen about 0830); sleeping; wakens but not fully. less confused today, slightly. not sob, feels edema unchanged. unchanged RLE pain. denies voiding c/o; needs lots of assistance to maneuver for exam Physical Exam Vital Signs (Past 24 Hours): Last Vital Signs Temp 36.7 C 02/13/19 15:05 Pulse 79 02/13/19 15:57 Resp 20 02/13/19 15:05 BP 122/68 02/13/19 15:05 Pulse Ox 90 02/13/19 15:05 Constitutional: well developed, well nourished and + obese on 02nc, lethargic in bed Eyes: EOM intact bilaterally does not keep eyes open for long ENMT: Ears: no external ear abnormality Nose: no external nose abnormality Mouth: + dry oral mucous membranes Neck: no nuchal rigidity Respiratory: + prolonged expiratory phase and + paradoxical thoraco-abdominal movement Auscultation: + diminished lung sounds does not cooperate w/ lung exam Cardiovascular: Rate/Rhythm: regular rate and regular rhythm Extremities: + edema (3+ pedal, 2+ BL to mid thigh; edema a bit better) Gastrointestinal (Abdomen): Inspection/Auscultation: normal bowel sounds Percussion/Palpation: abdomen soft; abdomen nontender Musculoskeletal: Extremities: strength 5/5 throughout Skin: + lesion (BLE w/ blisters, excoriations), + skin tightening and + erythema (worse R foot than L) Neurologic: valle; minimally interactive Psychiatric: Orientation: oriented to person, oriented to place and cooperative (but lethargic) Insight: + limited insight Results & Data Laboratory Results Abnormal lab results 02/12/19 02/13/19 02/13/19 Range/Units 20:00 07:14 07:14 WBC 11.75 H (4.8-10.8) K/uL RBC 4.16 L (4.7-6.1) M/uL Hgb 11.6 L (14.0-18.0) g/dL Hct 36.5 L (42-52) % MCHC 31.8 L (32-36) g/dL RDW Std Deviation 51.2 H (36.4-46.3) fL RDW Coeff of Kiah 15.9 H (11.5-14.5) % PT 15.2 H (9.0-12.0) Seconds INR 1.5 H (0.9-1.1) BUN (7-18) mg/dl Creatinine (0.6-1.4) mg/dl Glucose (70-99) mg/dl POC Glucose 146 H (70-99) Procalcitonin (0-0.5) ng/ml 02/13/19 02/13/19 02/13/19 Range/Units 07:14 07:14 07:20 WBC (4.8-10.8) K/uL RBC (4.7-6.1) M/uL Hgb (14.0-18.0) g/dL Hct (42-52) % MCHC (32-36) g/dL RDW Std Deviation (36.4-46.3) fL RDW Coeff of Kiah (11.5-14.5) % PT (9.0-12.0) Seconds INR (0.9-1.1) BUN 88 H (7-18) mg/dl Creatinine 4.60 H* (0.6-1.4) mg/dl Glucose 101 H (70-99) mg/dl POC Glucose 105 H (70-99) Procalcitonin 1.50 H (0-0.5) ng/ml 02/13/19 02/13/19 Range/Units 11:18 16:22 WBC (4.8-10.8) K/uL RBC (4.7-6.1) M/uL Hgb (14.0-18.0) g/dL Hct (42-52) % MCHC (32-36) g/dL RDW Std Deviation (36.4-46.3) fL RDW Coeff of Kiah (11.5-14.5) % PT (9.0-12.0) Seconds INR (0.9-1.1) BUN (7-18) mg/dl Creatinine (0.6-1.4) mg/dl Glucose (70-99) mg/dl POC Glucose 179 H 246 H (70-99) Procalcitonin (0-0.5) ng/ml (1) CHF (congestive heart failure) Heart failure type: diastolic Heart failure chronicity: acute on chronic Qualified Code(s): I50.33 - Acute on chronic diastolic (congestive) heart failure
[2019-02-14] MEDS: FUROSEMIDE 60 MG in SYRINGE 0 ML IV SCH ×4 (05:33→18:32)
[2019-02-14] MEDS: ASPIRIN 81 MG ECTAB PO SCH (08:16)
[2019-02-14] MEDS: INSULIN GLARGINE SOLOSTAR 100 UNITS/ML 3 ML PEN SC SCH ×2 (08:22→21:32)
[2019-02-14] MEDS: INSULIN ASPART 100 UNITS/ML 3 ML PEN SC SCH ×4 (08:22→21:33)
[2019-02-14] MEDS: HEPARIN SOD 5,000 UNIT/0.5 ML VIAL SQ SCH ×2 (08:23→21:32)
[2019-02-14 08:33] LABS: INR 1.8 (0.9-1.1)
[2019-02-14 08:41] LABS: BUN Creatinine Ratio 17.8 (10-20); Calcium 9.1 mg/dl (8.5-10.1); Creatinine Clr Calc Pharmacy 18.8 ml/min; Est GFR (Non-African American) 12.1; Potassium 4.5 mmol/L (3.5-5.1)
[2019-02-14] MEDS: METOPROLOL SUCC 50MG EXT REL TAB PO SCH (08:44)
[2019-02-14] MEDS: DAPTOmycin 375 MG in SYRINGE 0 ML IV SCH (08:48)
--- NOTE | 2019-02-14 09:09 | Nephrology Progress Note ---
Date of Service February 14, 2019 Assessment & Plan (1) BRANDEE (acute kidney injury): Baseline creatinine [id number] in low 2's w/ one reading in past 10 mos at 2.5 on 12/29, presented 02/09 w/ creat 3.6; worse w/ diuresis to 4.6. As OP his lasix had been increased about a week prior to admission from 20 mg daily (dose x years) to 40 mg bid. Also not taking his meds for a few days before admission. hx nephrotic range proteinuria in past >likeliest dx though is nonoliguric ischemic ATN from HF/hemodynamic changes w/ recent AF dx and cellulitis. 1.7 gm proteinuria daily and very concentrated urine w/ a few granular casts/ not clean catch/ no UTI; also trace blood/ glu cose. renal u/s unrevealing -cont recently increased to 60 mg iv tid and will follow -cont to hold ACEI -no elias needed for now -labs today stable; cont daily bmp -f/u pending spep, upep; would hold off on gallagher work up as glomerular disease not top of differential though ESR notable (2) CKD (chronic kidney disease) stage 4, GFR 15-29 ml/min: Baseline creatinine had been mid 2's; hx of nephrotic range proteinuria; presented w/ elements of nephrotic syndrome; advanced CKD from DM, HTN, obesity, macro/microvascular disease -pls be sure at d/c he goes out on ASA 81 and not 325 mg daily -needs OP CKD clinic f/u; has already told me he has no $ for this ->>did d/w family may well have progression of dz and now be heading to ckd5; cannot r/o need for dialysis this admission >BL adrenal nodules noted on CT > doubt role for this in htn; 3.4 cm R adrenal nodule should likely have f/u imaging to ensure not growing in 6-12 mos (3) Volume overload: standing wt 02/10 114.8 kg first standing wt this admission> up 1/2 kg today. we have little baseline data on his OP weight: looks like was about 118kg in 2017; then in 2018 has 110 kg one time reading; then 2019 has been about 125 kg. -follow daily standing wts - first standing one is 115.3 on 02/11; large gain on wts today/yesterday -- following wts next few days will show which is correct 02/11 or 02/12; d/t pt weakness accurate wts a challenge and team efforts appreciated -cont sodium/ FR -cont lasix 60 IV 3 daily doses given q6h (6A, noon, 6P) w/o MN dose (timed so as not to disrupt sleep) -reviewed w/ pharmacy and no need to concentrate ABTX which have minimal salt and volume load -add spironolactone when appropriate for HF Subjective seen on rounds this am at 0915; sleeping soundly on RA. wakens briefly; denies pain other than RLE. denies sob. denies voiding c/o. not willing to participate further in ros Physical Exam Vital Signs (Past 24 Hours): Last Vital Signs Temp 36.9 C 02/14/19 07:19 Pulse 74 02/14/19 07:19 Resp 20 02/14/19 07:19 BP 155/79 H 02/14/19 07:19 Pulse Ox 92 02/14/19 07:19 Constitutional: well developed, well nourished and + obese on RA, nad. wakens breifly but lethargic Eyes: EOM intact bilaterally ENMT: Ears: no external ear abnormality Nose: no external nose abnormality Mouth: + dry oral mucous membranes Neck: no nuchal rigidity Respiratory: + prolonged expiratory phase and + paradoxical thoraco-abdominal movement Auscultation: + diminished lung sounds (does not cooperate w/ lung exam; breathing appears easier today a bit) Cardiovascular: Rate/Rhythm: regular rate and regular rhythm Extremities: + edema (3+ pedal, 2+ BL to mid thigh; indurated, less) Gastrointestinal (Abdomen): Inspection/Auscultation: normal bowel sounds Percussion/Palpation: abdomen soft; abdomen nontender Musculoskeletal: Extremities: strength 5/5 throughout Skin: + lesion (BLE w/ blisters, excoriations), + skin tightening and + erythema (worse R foot than L) RLE wounds w/ serous oozing Neurologic: valle, fluent if limited speech Psychiatric: Orientation: oriented to person, oriented to place and cooperative (but lethargic) Insight: + limited insight Judgement: + limited judgement Results & Data Laboratory Results Abnormal lab results 02/13/19 02/13/19 02/13/19 Range/Units 11:18 16:22 20:35 PT (9.0-12.0) Seconds INR (0.9-1.1) Carbon Dioxide (21-32) mmol/L BUN (7-18) mg/dl Creatinine (0.6-1.4) mg/dl Glucose (70-99) mg/dl POC Glucose 179 H 246 H 216 H (70-99) 02/14/19 02/14/19 Range/Units 07:50 07:50 PT 18.0 H (9.0-12.0) Seconds INR 1.8 H (0.9-1.1) Carbon Dioxide 35 H (21-32) mmol/L BUN 78 H (7-18) mg/dl Creatinine 4.36 H (0.6-1.4) mg/dl Glucose 141 H (70-99) mg/dl POC Glucose (70-99) Diagnostic Findings ct chest Thyroid: Imaged portions of the thyroid gland are normal in size and attenuation. Thoracic aorta: There is atherosclerotic calcification of the thoracic aorta, which is normal in caliber and demonstrates standard 3-vessel arch anatomy. Heart: The heart is enlarged and without pericardial effusion. Pericardial thickening is noted. The coronary arteries are densely calcified. Lungs and pleural spaces: There are small pleural effusions with bibasilar atelectasis. Diffuse intralobular septal thickening indicates congestive failure. No airspace consolidation is seen typical for pneumonia. Minimal secretions are noted in the distal trachea. Mediastinum: A precarinal node measures 14 mm in short axis. Additional subcentimeter mediastinal lymph nodes are identified. Elicia: Not well assessed without IV contrast. Axillae: There is no axillary lymphadenopathy. Upper abdomen: There is a small hiatal hernia. A 3.4 cm right adrenal nodule and a 2.4 cm left adrenal nodule meet CT criteria for fat-containing adenomas. Skeletal structures: The skeletal structures are osteopenic. No lytic or blastic bony lesions are seen. Soft tissues: Gynecomastia is noted. A small metallic foreign body is present within the right ventral chest wall on image #[id number]. IMPRESSION: 1. Cardiomegaly with evidence of congestive failure. 2. Small pleural effusions.
[2019-02-14] MEDS: PIPERACILLIN/TAZOBACTAM 4.5 GM in DEXTROSE 5% 100 ML IV SCH ×2 (11:13→23:25)
--- NOTE | 2019-02-14 14:42 | Hospitalist Progress Note ---
Date of Service February 14, 2019 Assessment & Plan (1) CHF (congestive heart failure): Volume Overload: Due to CHF, BRANDEE Acute on chronic diastolic CHF exacerbation --CXR showed:Mild cardiomegaly with volume overload/congestive change and mild pulmonary edema. Given the asymmetric density at the left lung base, underlying left lower lobe pneumonia cannot be excluded. Correlate clinically for infectious symptoms. Suspected left pleural effusion. --Did not take his medications since last 3 days --Questionable Compliance --ECHO: Grade III diastolic dysfunciton Hold PO diuretics Continue IV Lasix per Nephrology Daily weight, I/Os, fluid restriction Low sodium diet Oxygen support PRN Monitor renal function/electrolytes Appreciate Cardiology Input May need 2 step prior to discharge Continue current management Encephalopathy Likely delirium CT head: No acute changes Normal Ammonia level ABG:Mild Hypercarbia Reorient frequently Monitor BUN Avoid Narcotics Appreciate neurology Input Afib RVR: Diagnosed in Nov 2018 Monitor electrolytes Rate controlled Did not take his medications since 3 days Continue metoprolol Monitor INR:3.5>>3.2>>1.5>>1.8 Will give Coumadin 6mg today Heparin SQ until INR is therapeutic Left Lower Lobe Pneumonia-POA CXR:asymmetric density at the left lung base noted Procalcitonin trending down Continue Abx Blood Cultures:No growth to date B/L LE cellulitis: Normal Lactate levels Venous Doppler:There is no sonographic evidence of deep venous thrombosis identified in the right lower extremity. Ankle X ray:No acute fracture or evidence of osteomyelitis. Moderate soft tissue swelling. Foot X ray:No acute fractures. Dorsal soft tissue swelling No destructive lesions are visualized Continue Daptomycin and Zosyn Day#6 Wound Cultures:Group G beta Strep, Staph Wound Care Transition to PO Abx as able Check Procalcitonin in AM BRANDEE on CKD IV: Likely ATN Hold Lisinopril, Statin Avoid NSAIDs Baseline Cr:2.5 in Nov 2018 Renal USD:The kidneys demonstrate mild cortical atrophy and are without hydronephrosis. 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 Subjective Patient is seen and examined at bedside Doing better today Offers no complaints Leg swelling improving Denies chest pain, SOB, nausea, dizziness Renal function slightly better Physical Exam Vital Signs (Past 24 Hours): Last Vital Signs Temp 36.8 C 02/14/19 11:37 Pulse 74 02/14/19 11:37 Resp 18 02/14/19 11:37 BP 131/72 02/14/19 11:37 Pulse Ox 92 02/14/19 11:37 Physical Exam: Physical Exam: Vitals signs as noted above General Appearance:Obese, no apparent distress Head: normocephalic, Atraumatic Eyes: normal inspection, EOMI Neck: supple, Trachea midline Respiratory/Chest: Decreased breath sounds, CTA Cardiovascular: Irregularly Irregular, + systolic murmur Abdomen/GI:Soft, Non tender, Bowel sounds present Extremities/Musculoskelatal:normal inspection, B/L LE swelling, erythema, small open wounds Neurologic/Psych:AAOX3, grossly no focal neurological deficits Skin: normal color, warm Results & Data Laboratory Results [facility] 02/14/19 07:50 Sodium 144 Potassium 4.5 D Chloride 104 Carbon Dioxide 35 H BUN 78 H Creatinine 4.36 H Glucose 141 H Calcium 9.1 (1) CHF (congestive heart failure) Heart failure type: diastolic Heart failure chronicity: acute on chronic Qualified Code(s): I50.33 - Acute on chronic diastolic (congestive) heart failure
[2019-02-14] MEDS: WARFARIN SOD 6 MG TAB PO SCH (15:54)
[2019-02-15] MEDS: FUROSEMIDE 60 MG in SYRINGE 0 ML IV SCH ×3 (06:38→17:16)
[2019-02-15 07:39] LABS: Basophils # (auto) 0.05 K/uL (0-0.2); Basophils % (auto) 0.7 %; Eosinophils # (auto) 0.07 K/uL (0-0.5); Hematocrit (blood only) 32.5 % (42-52); Hemoglobin 10.4 g/dL (14.0-18.0); Immature Granulocytes # (auto) 0.06 K/uL (0.00-0.02); Immature Granulocytes % (auto) 0.8 %; Lymphocytes # (auto) 0.64 K/uL (1.2-3.4); Lymphocytes % (auto) 8.9 %; Mean Corpuscular Volume 88.3 fL (80-100); Mean Platelet Volume 8.9 fL (7.4-10.4); Monocytes # (auto) 1.03 K/uL (0.11-0.59); Monocytes % (auto) 14.3 %; Neutrophils # (auto) 5.35 K/uL (1.4-6.5); Neutrophils % (auto) 74.3 %; Platelet Count 349 K/uL (130-400); RDW Coefficient of Variation 15.9 % (11.5-14.5); RDW Standard Deviation 51.4 fL (36.4-46.3); Red Blood Count 3.68 M/uL (4.7-6.1)
[2019-02-15 07:49] LABS: INR 1.8 (0.9-1.1); Prothrombin Time 17.6 Seconds (9.0-12.0)
[2019-02-15 08:14] LABS: BUN Creatinine Ratio 18.2 (10-20); Calcium 8.6 mg/dl (8.5-10.1); Creatinine Clr Calc Pharmacy 20.2 ml/min; Est GFR (African American) 15.6; Est GFR (Non-African American) 13.5; Potassium 3.6 mmol/L (3.5-5.1)
[2019-02-15] MEDS: METOPROLOL SUCC 50MG EXT REL TAB PO SCH (08:58)
[2019-02-15] MEDS: ASPIRIN 81 MG ECTAB PO SCH (08:58)
[2019-02-15] MEDS: HEPARIN SOD 5,000 UNIT/0.5 ML VIAL SQ SCH ×2 (09:00→21:01)
[2019-02-15] MEDS: INSULIN ASPART 100 UNITS/ML 3 ML PEN SC SCH ×4 (09:04→21:03)
[2019-02-15] MEDS: INSULIN GLARGINE SOLOSTAR 100 UNITS/ML 3 ML PEN SC SCH ×2 (09:04→21:01)
[2019-02-15] MEDS: PIPERACILLIN/TAZOBACTAM 4.5 GM in DEXTROSE 5% 100 ML IV SCH ×2 (12:29→22:30)
[2019-02-15] MEDS: ESCITALOPRAM OXALATE 10 MG TAB PO SCH (12:30)
[2019-02-15] MEDS: WARFARIN SOD 6 MG TAB PO SCH (15:31)
--- NOTE | 2019-02-15 16:27 | Nephrology Progress Note ---
Date of Service February 15, 2019 Assessment & Plan (1) BRANDEE (acute kidney injury): Baseline creatinine [id number] in low 2's w/ one reading in past 10 mos at 2.5 on 12/29, presented 02/09 w/ creat 3.6; worse w/ diuresis to peak at 4.6; slowly trending down now. As OP his lasix had been increased about a week prior to admission from 20 mg daily (dose x years) to 40 mg bid. Also not taking his meds for a few days before admission. hx nephrotic range proteinuria in past >likeliest dx though is nonoliguric ischemic ATN from HF/hemodynamic changes w/ recent AF dx and cellulitis. 1.7 gm proteinuria daily and very concentrated urine w/ a few granular casts/ not clean catch/ no UTI; also trace blood/ glucose. renal u/s unrevealing ->>>>cont recently increased lasix 60 mg iv tid and follow creat -cont to hold ACEI -no elias needed for now -labs today stable; cont daily bmp -f/u pending spep, updevora; would hold off on gallagher work up as glomerular disease at this time (2) CKD (chronic kidney disease) stage 4, GFR 15-29 ml/min: Baseline creatinine had been mid 2's; hx of nephrotic range proteinuria; presented w/ elements of nephrotic syndrome; advanced CKD from DM, HTN, obesity, macro/microvascular disease -pls be sure at d/c he goes out on ASA 81 and not 325 mg daily -needs OP CKD clinic f/u; has already told me he has no $ for this ->>did d/w family may well have progression of dz and now be heading to ckd5; cannot r/o need for dialysis this admission but improvement in labs today is hopeful >BL adrenal nodules noted on CT > doubt role for this in htn; 3.4 cm R adrenal nodule should likely have f/u imaging to ensure not growing in 6-12 mos (3) Volume overload: improving slightly. we have little baseline data on his OP weight: looks like was about 118kg in 2017; then in 2018 has 110 kg one time reading; then 2019 has been about 125 kg. -follow daily standing wts - first standing one is 115.3 on 02/11; large gain on wts today/yesterday -- following wts next few days will show which is correct 02/11 or 02/12; d/t pt weakness accurate wts a challenge and team efforts appreciated -cont sodium/ FR >>>>cont lasix 60 IV 3 daily doses given q6h (6A, noon, 6P) w/o MN dose (timed so as not to disrupt sleep) -reviewed w/ pharmacy and no need to concentrate ABTX which have minimal salt and volume load -add spironolactone when appropriate for HF; not likely this admission Subjective seen on rounds this am; no c/o pain. states leg a bit better. still very reluctant to talk. denies voiding concerns. no n/v. sob. Physical Exam Vital Signs (Past 24 Hours): Last Vital Signs Temp 37.1 C 02/15/19 12:00 Pulse 100 H 02/15/19 12:00 Resp 16 02/15/19 12:00 BP 139/65 02/15/19 12:00 Pulse Ox 91 02/15/19 12:00 Constitutional: well developed, well nourished and + obese lying flat on RA w/o resp distress; lethargic Eyes: EOM intact bilaterally ENMT: Ears: no external ear abnormality Nose: no external nose abnormality Mouth: + dry oral mucous membranes Neck: no nuchal rigidity Respiratory: + paradoxical thoraco-abdominal movement Auscultation: + diminished lung sounds (very diminished air entry) Cardiovascular: Rate/Rhythm: regular rate and regular rhythm Extremities: + edema (3+ pedal, 2+ BL to mid thigh; less indurated) Gastrointestinal (Abdomen): Inspection/Auscultation: normal bowel sounds Percussion/Palpation: abdomen soft; abdomen nontender Musculoskeletal: Extremities: strength 5/5 throughout Skin: + lesion (BLE w/ blisters, excoriations), + skin tightening and + erythema (worse R foot than L) Psychiatric: Orientation: oriented to person, oriented to place and cooperative (but lethargic) Speech: normal rate/rhythm/volume of speech Insight: + limited insight Judgement: + limited judgement Results & Data Laboratory Results Abnormal lab results 02/14/19 02/14/19 02/15/19 Range/Units 16:48 20:19 07:13 RBC (4.7-6.1) M/uL Hgb (14.0-18.0) g/dL Hct (42-52) % RDW Std Deviation (36.4-46.3) fL RDW Coeff of Kiah (11.5-14.5) % Immature Gran # (Auto) (0.00-0.02) K/uL Lymph # (Auto) (1.2-3.4) K/uL Ponce # (Auto) (0.11-0.59) K/uL PT (9.0-12.0) Seconds INR (0.9-1.1) Carbon Dioxide (21-32) mmol/L BUN (7-18) mg/dl Creatinine (0.6-1.4) mg/dl Glucose (70-99) mg/dl POC Glucose 149 H 212 H 189 H (70-99) 02/15/19 02/15/19 02/15/19 Range/Units 07:23 07:23 07:23 RBC 3.68 L (4.7-6.1) M/uL Hgb 10.4 L (14.0-18.0) g/dL Hct 32.5 L (42-52) % RDW Std Deviation 51.4 H (36.4-46.3) fL RDW Coeff of Kiah 15.9 H (11.5-14.5) % Immature Gran # (Auto) 0.06 H (0.00-0.02) K/uL Lymph # (Auto) 0.64 L (1.2-3.4) K/uL Ponce # (Auto) 1.03 H (0.11-0.59) K/uL PT 17.6 H (9.0-12.0) Seconds INR 1.8 H (0.9-1.1) Carbon Dioxide 36 H (21-32) mmol/L BUN 73 H (7-18) mg/dl Creatinine 3.99 H D (0.6-1.4) mg/dl Glucose 126 H (70-99) mg/dl POC Glucose (70-99) 02/15/19 Range/Units 11:34 RBC (4.7-6.1) M/uL Hgb (14.0-18.0) g/dL Hct (42-52) % RDW Std Deviation (36.4-46.3) fL RDW Coeff of Kiah (11.5-14.5) % Immature Gran # (Auto) (0.00-0.02) K/uL Lymph # (Auto) (1.2-3.4) K/uL Ponce # (Auto) (0.11-0.59) K/uL PT (9.0-12.0) Seconds INR (0.9-1.1) Carbon Dioxide (21-32) mmol/L BUN (7-18) mg/dl Creatinine (0.6-1.4) mg/dl Glucose (70-99) mg/dl POC Glucose 234 H (70-99)
--- NOTE | 2019-02-15 16:30 | Hospitalist Progress Note ---
Date of Service February 15, 2019 Assessment & Plan (1) CHF (congestive heart failure): Volume Overload: Due to CHF, complicated BRANDEE Acute on chronic diastolic CHF exacerbation Did not take his medications since last 3 days ECHO: Grade III diastolic dysfunciton Continue IV Lasix per Nephrology Daily weight, I/Os, fluid restriction Low sodium diet Appreciate Cardiology Input and recommendation We will get PT and OT evaluation Likely to need placement Encephalopathy Acute delirium CT head: No acute changes Normal Ammonia level ABG:Mild Hypercarbia Avoid narcotics and benzodiazepines Appreciate neurology Input Afib RVR: Diagnosed in Nov 2018 Rate controlled Continue metoprolol Monitor INR Left Lower Lobe Pneumonia-POA CXR:asymmetric density at the left lung base noted Procalcitonin trending down Continue Abx Blood Cultures:No growth to date B/L LE cellulitis: Normal Lactate levels Venous Doppler:There is no sonographic evidence of deep venous thrombosis identified in the right lower extremity. Ankle X ray:No acute fracture or evidence of osteomyelitis. Moderate soft tissue swelling. Foot X ray:No acute fractures. Dorsal soft tissue swelling No destructive lesions are visualized Continue Daptomycin and Zosyn Day#7 Wound Cultures:Group G beta Strep, Staph Appreciate Wound Care Transition to PO Abx as able BRANDEE on CKD IV: Likely ATN Hold Lisinopril, Statin Avoid NSAIDs Baseline Cr:2.5 in Nov 2018 Renal USD:The kidneys demonstrate mild cortical atrophy and are without hydronephrosis. 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 Lying in bed comfortably Looks depressed and anxious awaiting to be seen by the family members He was crying in presence of the covering his face Denies any discomfort Physical Exam Vital Signs (Past 24 Hours): Last Vital Signs Temp 37.1 C 02/15/19 12:00 Pulse 100 H 02/15/19 12:00 Resp 16 02/15/19 12:00 BP 139/65 02/15/19 12:00 Pulse Ox 91 02/15/19 12:00 Physical Exam: Very depressed Constitutional: well developed, well nourished and + obese Eyes: EOM intact bilaterally ENMT: Mouth: + dry oral mucous membranes Neck: no nuchal rigidity Respiratory: normal respiratory effort Auscultation: + breath sounds absent (L posterior field 1/2 way up), + diminished lung sounds (does not cooperate w/ lung exam; breathing appears easier today a bit) and + crackles Cardiovascular: Rate/Rhythm: regular rate and regular rhythm Extremities: + edema (3+ pedal, 2+ BL to mid thigh; indurated, chronic ischemic changes b ilaterally) Gastrointestinal (Abdomen): Inspection/Auscultation: normal bowel sounds Percussion/Palpation: abdomen soft; abdomen nontender Skin: + lesion (BLE w/ blisters, excoriations), + skin tightening and + erythema (worse R foot than L) Psychiatric: Orientation: oriented to person, oriented to place, oriented to time and cooperative (but lethargic) Speech: normal rate/rhythm/volume of speech Insight: + limited insight Judgement: + limited judgement Results & Data Laboratory Results Short CBC 02/15/19 Range/Units 07:23 WBC 7.20 (4.8-10.8) K/uL Hgb 10.4 L (14.0-18.0) g/dL Hct 32.5 L (42-52) % Plt Count 349 (130-400) K/uL BMP 02/15/19 07:23 Sodium 145 Potassium 3.6 D Chloride 105 Carbon Dioxide 36 H BUN 73 H Creatinine 3.99 H D Glucose 126 H Calcium 8.6 Medications Administered Current Inpatient Medications Acetaminophen (Tylenol) 650 mg PO Q4H PRN PRN Reason: Pain or Fever Stop: 03/11/19 18:35 Last Admin: 02/13/19 06:39 Dose: 650 mg Documented by: Aspirin (Ecotrin Ectab) 81 mg PO QAM [facility] Stop: 03/12/19 08:59 Last Admin: 02/15/19 08:58 Dose: 81 mg Documented by: Dextrose (Dextrose 50%) 25 - 50 ml IV UD PRN; Protocol PRN Reason: Hypoglycemia Protocol Stop: 03/11/19 18:35 Escitalopram Oxalate (Lexapro) 10 mg PO QAM [facility] Stop: 03/17/19 11:44 Last Admin: 02/15/19 12:30 Dose: 10 mg Documented by: Glucagon (Glucagen) 1 mg SQ UD PRN; Protocol PRN Reason: Hypoglycemia Protocol Stop: 03/11/19 18:35 Glucose (Glucose 40%) 15 - 30 gm PO UD PRN; Protocol PRN Reason: Hypoglycemia Protocol Stop: 03/11/19 18:35 Glucose (Dex4 Glucose) 4 - 8 tabs PO UD PRN; Protocol PRN Reason: Hypoglycemia Protocol Stop: 03/11/19 18:35 Heparin Sodium (Porcine) (Heparin Sodium (Porcine)) 5,000 units SQ Q12 [facility] Stop: 03/13/19 11:59 Last Admin: 02/15/19 09:00 Dose: 5,000 units Documented by: Piperacillin Sod/Tazobactam (Sod 4.5 gm/ Dextrose) 120 mls @ 30 mls/hr IV Q12H [facility]; Protocol Stop: 02/19/19 22:59 Last Admin: 02/15/19 12:29 Dose: 30 mls/hr Documented by: Daptomycin 375 mg/ Syringe 7.5 mls @ 3.75 mls/min IV Q48H [facility]; Protocol Stop: 02/20/19 08:59 Last Admin: 02/14/19 08:48 Dose: 3.75 mls/min Documented by: Furosemide 60 mg/ Syringe 6 mls @ 4 mls/min IV DAILY@0600,1200,1800 [facility] Stop: 03/14/19 13:14 Last Admin: 02/15/19 13:19 Dose: 4 mls/min Documented by: Insulin Aspart (Novolog Flexpen) 0 units SC ACHS [facility] Stop: 03/11/19 20:59 Last Admin: 02/15/19 13:04 Dose: 6 units Documented by: Insulin Glargine (Lantus Solostar Pen) 10 units SC Q12H [facility] Stop: 03/11/19 20:59 Last Admin: 02/15/19 09:04 Dose: 10 units Documented by: Metoprolol Succinate (Toprol Xl) 50 mg PO DAILY [facility] Stop: 03/11/19 18:35 Last Admin: 02/15/19 08:58 Dose: 50 mg Documented by: Miscellaneous (Carbohydrates For Hypoglycemia) 15 - 30 gm PO UD PRN PRN Reason: Hypoglycemia Treatment Stop: 03/11/19 18:35 Miscellaneous Information (Consult) 1 ea N/A UD PRN PRN Reason: Consult Stop: 03/11/19 14:40 Miscellaneous Information (Consult) 1 ea N/A UD PRN PRN Reason: Consult Stop: 03/11/19 19:01 Polyethylene Glycol (Miralax Powder Packet) 17 gm PO DAILY PRN PRN Reason: Constipation Stop: 03/11/19 18:35 Warfarin Sodium (Coumadin) 6 mg PO DAILY@1600 [facility] Stop: 03/16/19 15:59 Last Admin: 02/15/19 15:31 Dose: 6 mg Documented by: (1) CHF (congestive heart failure) Heart failure type: diastolic Heart failure chronicity: acute on chronic Qualified Code(s): I50.33 - Acute on chronic diastolic (congestive) heart failure
[2019-02-16] MEDS: FUROSEMIDE 60 MG in SYRINGE 0 ML IV SCH ×3 (06:28→17:38)
[2019-02-16 06:29] LABS: Basophils # (auto) 0.04 K/uL (0-0.2); Basophils % (auto) 0.7 %; Eosinophils # (auto) 0.04 K/uL (0-0.5); Eosinophils % (auto) 0.7 %; Hematocrit (blood only) 32.3 % (42-52); Hemoglobin 10.2 g/dL (14.0-18.0); Immature Granulocytes # (auto) 0.03 K/uL (0.00-0.02); Immature Granulocytes % (auto) 0.5 %; Lymphocytes # (auto) 0.71 K/uL (1.2-3.4); Lymphocytes % (auto) 11.9 %; Mean Corpuscular Hgb Conc 31.6 g/dL (32-36); Mean Platelet Volume 9.1 fL (7.4-10.4); Monocytes # (auto) 0.75 K/uL (0.11-0.59); Monocytes % (auto) 12.6 %; Neutrophils % (auto) 73.6 %; Platelet Count 373 K/uL (130-400); RDW Coefficient of Variation 15.7 % (11.5-14.5); RDW Standard Deviation 50.7 fL (36.4-46.3); Red Blood Count 3.63 M/uL (4.7-6.1); White Blood Count 5.97 K/uL (4.8-10.8)
[2019-02-16 06:50] LABS: INR 1.7 (0.9-1.1); Prothrombin Time 17.1 Seconds (9.0-12.0)
[2019-02-16 07:04] LABS: BUN Creatinine Ratio 17.2 (10-20); Calcium 8.3 mg/dl (8.5-10.1); Creatinine Clr Calc Pharmacy 21.1 ml/min; Est GFR (African American) 16.7; Est GFR (Non-African American) 14.4; Potassium 3.5 mmol/L (3.5-5.1)
[2019-02-16] MEDS: ESCITALOPRAM OXALATE 10 MG TAB PO SCH (08:30)
[2019-02-16] MEDS: DAPTOmycin 375 MG in SYRINGE 0 ML IV SCH (08:30)
[2019-02-16] MEDS: ASPIRIN 81 MG ECTAB PO SCH (08:30)
[2019-02-16] MEDS: METOPROLOL SUCC 50MG EXT REL TAB PO SCH (08:30)
[2019-02-16] MEDS: INSULIN GLARGINE SOLOSTAR 100 UNITS/ML 3 ML PEN SC SCH ×2 (08:34→20:38)
[2019-02-16] MEDS: HEPARIN SOD 5,000 UNIT/0.5 ML VIAL SQ SCH ×2 (08:35→20:39)
[2019-02-16] MEDS: INSULIN ASPART 100 UNITS/ML 3 ML PEN SC SCH ×4 (08:37→20:39)
[2019-02-16] MEDS: PIPERACILLIN/TAZOBACTAM 4.5 GM in DEXTROSE 5% 100 ML IV SCH ×2 (12:17→22:36)
[2019-02-16] MEDS: EUCERIN CR 120 GM JAR EXT SCH ×2 (14:33→20:35)
--- NOTE | 2019-02-16 14:44 | Hospitalist Progress Note ---
Date of Service February 16, 2019 Assessment & Plan (1) CHF (congestive heart failure): Acute on chronic diastolic CHF exacerbation Did not take his medications since last 3 days ECHO: Grade III diastolic dysfunciton Continue IV Lasix per Nephrology Daily weight, I/Os, fluid restriction Low sodium diet Appreciate Cardiology Input and recommendation We will get PT and OT evaluation Clinically a lot better today without any significant symptoms at rest Continue current treatment Encephalopathy Acute delirium CT head: No acute changes Normal Ammonia level ABG:Mild Hypercarbia Avoid narcotics and benzodiazepines Appreciate neurology Input No more delirium Afib RVR: Diagnosed in Nov 2018 Rate controlled Continue metoprolol Monitor INR1.7 today Left Lower Lobe Pneumonia-POA CXR:asymmetric density at the left lung base noted Procalcitonin trending down Continue Abx Blood Cultures:No growth to date We will finish the course of antibiotic B/L LE cellulitis: Normal Lactate levels Venous Doppler:There is no sonographic evidence of deep venous thrombosis identified in the right lower extremity. Ankle X ray:No acute fracture or evidence of osteomyelitis. Moderate soft tissue swelling. Foot X ray:No acute fractures. Dorsal soft tissue swelling No destructive lesio ns are visualized Continue Daptomycin and Zosyn Day#7 Wound Cultures:Group G beta Strep, Staph Appreciate Wound Care Transition to PO Abx as able BRANDEE on CKD IV: Likely ATN Hold Lisinopril, Statin Avoid NSAIDs Baseline Cr:2.5 in Nov 2018 Renal USD:The kidneys demonstrate mild cortical atrophy and are without hydronephrosis. Avoid nephro toxic agents Appreciate Nephrology Input and recommendation May need dialysis if continues to worsen DM II hold oral diabetic meds Last A1c:7.1 in Nov 2018 ISS, basal Insulin, Accu checks, Diabetic diet Updated A1C:7.7 Dyslipidemia Hold Statin for now while on Dapto Mechanical Fall: PT/OT Fall precuations CARLOS ALBERTO Not on CPAP Depression Will start Lexapro 10 mg daily Tobacco use disorder Refuses Nicotine Patch DVT Px: Coumadin INR-1. 7 today Code Status DNI/DNR Disposition: PT/OT Sourcing Intern consulted for discharge planning Discussed with the and the daughter Likely to be discharged tomorrow to rehab Subjective The patient was seen and examined in medical telemetry He is a 78-year-old male with history of DM II, CHF, CKD IV, atrial fibrillation, dyslipidemia, CARLOS ALBERTO, tobacco use disorder, hypertension and other problems presents with history of worsening bilateral leg swelling and pain since 1 week duration. Lying in bed comfortably Looks depressed and anxious awaiting to be seen by the family members He was crying in presence of the covering his face Denies any discomfort 02/16 The patient was seen and examined in presence of the daughter and the He has been less confused today and denies any significant symptoms Physical therapy recommended rehab but the patient wants to go home Likely to be discharged tomorrow Physical Exam Vital Signs (Past 24 Hours): Last Vital Signs Temp 36.5 C 02/16/19 12:00 Pulse 83 02/16/19 12:00 Resp 18 02/16/19 12:00 BP 137/57 L 02/16/19 12:00 Pulse Ox 90 02/16/19 12:00 Physical Exam: No apparent distress at rest Constitutional: well developed, well nourished and + obese Eyes: EOM intact bilaterally ENMT: Mouth: + dry oral mucous membranes Neck: no nuchal rigidity Respiratory: normal respiratory effort Auscultation: + breath sounds absent (L posterior field 1/2 way up), + diminished lung sounds (does not cooperate w/ lung exam; breathing appears easier today a bit) and + crackles Cardiovascular: Rate/Rhythm: regular rate and regular rhythm Extremities: + edema (3+ pedal, 2+ BL to mid thigh; indurated, chronic ischemic changes bilaterally) Gastrointestinal (Abdomen): Inspection/Auscultation: normal bowel sounds Percussion/Palpation: abdomen soft; abdomen nontender Skin: + lesion (BLE w/ blisters, excoriations), + skin tightening and + erythema (worse R foot than L) Leg symptoms and signs are improving Psychiatric: Orientation: oriented to person, oriented to place, oriented to time and cooperative (but lethargic) Speech: normal rate/rhythm/volume of speech Insight: + limited insight Judgement: + limited judgement Results & Data Laboratory Results Short CBC 02/16/19 Range/Units 06:00 WBC 5.97 (4.8-10.8) K/uL Hgb 10.2 L (14.0-18.0) g/dL Hct 32.3 L (42-52) % Plt Count 373 (130-400) K/uL BMP 02/16/19 06:00 Sodium 142 Potassium 3.5 Chloride 102 Carbon Dioxide 33 H BUN 65 H Creatinine 3.78 H Glucose 137 H Calcium 8.3 L Cardiac Enzymes 02/16/19 Range/Units 06:00 Total Creatine Kinase 46 (39-308) U/L Medications Administered Current Inpatient Medications Acetaminophen (Tylenol) 650 mg PO Q4H PRN PRN Reason: Pain or Fever Stop: 03/11/19 18:35 Last Admin: 02/13/19 06:39 Dose: 650 mg Documented by: Aspirin (Ecotrin Ectab) 81 mg PO QAM [facility] Stop: 03/12/19 08:59 Last Admin: 02/16/19 08:30 Dose: 81 mg Documented by: Dextrose (Dextrose 50%) 25 - 50 ml IV UD PRN; Protocol PRN Reason: Hypoglycemia Protocol Stop: 03/11/19 18:35 Escitalopram Oxalate (Lexapro) 10 [facility] [place] Stop: 03/17/19 11:44 Last Admin: 02/16/19 08:30 Dose: 10 mg Documented by: Glucagon (Glucagen) 1 mg SQ UD PRN; Protocol PRN Reason: Hypoglycemia Protocol Stop: 03/11/19 18:35 Glucose (Glucose 40%) 15 - 30 gm PO UD PRN; Protocol PRN Reason: Hypoglycemia Protocol Stop: 03/11/19 18:35 Glucose (Dex4 Glucose) 4 - 8 tabs PO UD PRN; Protocol PRN Reason: Hypoglycemia Protocol Stop: 03/11/19 18:35 Heparin Sodium (Porcine) (Heparin Sodium (Porcine)) 5,000 units SQ Q12 [facility] Stop: 03/13/19 11:59 Last Admin: 02/16/19 08:35 Dose: 5,000 units Documented by: Piperacillin Sod/Tazobactam (Sod 4.5 gm/ Dextrose) 120 mls @ 30 mls/hr IV Q12H [facility]; Protocol Stop: 02/19/19 22:59 Last Admin: 02/16/19 12:17 Dose: 30 mls/hr Documented by: Daptomycin 375 mg/ Syringe 7.5 mls @ 3.75 mls/min IV Q48H [facility]; Protocol Stop: 02/20/19 08:59 Last Admin: 02/16/19 08:30 Dose: 3.75 mls/min Documented by: Furosemide 60 mg/ Syringe 6 mls @ 4 mls/min IV DAILY@0600,1200,1800 [facility] Stop: 03/14/19 13:14 Last Admin: 02/16/19 12:17 Dose: 4 mls/min Documented by: Insulin Aspart (Novolog Flexpen) 0 units SC ACHS [facility] Stop: 03/11/19 20:59 Last Admin: 02/16/19 13:20 Dose: 6 units Documented by: Insulin Glargine (Lantus Solostar Pen) 10 units SC Q12H [facility] Stop: 03/11/19 20:59 Last Admin: 02/16/19 08:34 Dose: 10 units Documented by: Metoprolol Succinate (Toprol Xl) 50 mg PO DAILY [facility] Stop: 03/11/19 18:35 Last Admin: 02/16/19 08:30 Dose: 50 mg Documented by: Miscellaneous (Carbohydrates For Hypoglycemia) 15 - 30 gm PO UD PRN PRN Reason: Hypoglycemia Treatment Stop: 03/11/19 18:35 Miscellaneous Information (Consult) 1 ea N/A UD PRN PRN Reason: Consult Stop: 03/11/19 14:40 Miscellaneous Information (Consult) 1 ea N/A UD PRN PRN Reason: Consult Stop: 03/11/19 19:01 Multi-Ingredient Cream (Hydrocerin) 1 appln EXT BID [facility] Stop: 03/18/19 10:14 Last Admin: 02/16/19 14:33 Dose: 1 appln Documented by: Polyethylene Glycol (Miralax Powder Packet) 17 gm PO DAILY PRN PRN Reason: Constipation Stop: 03/11/19 18:35 Warfarin Sodium (Coumadin) 6 mg PO DAILY@1600 [facility] Stop: 03/16/19 15:59 Last Admin: 02/15/19 15:31 Dose: 6 mg Documented by: (1) CHF (congestive heart failure) Heart failure type: diastolic Heart failure chronicity: acute on chronic Qualified Code(s): I50.33 - Acute on chronic diastolic (congestive) heart failure
[2019-02-16] MEDS: WARFARIN SOD 6 MG TAB PO SCH (16:00)
--- NOTE | 2019-02-16 18:28 | Nephrology Progress Note ---
Date of Service February 16, 2019 Assessment & Plan (1) BRANDEE (acute kidney injury): IMPROVING Baseline creatinine [id number] in low 2's w/ one reading in past 10 mos at 2.5 on 12/29, presented 02/09 w/ creat 3.6; worse w/ diuresis to peak at 4.6; slowly trending down now. As OP his lasix had been increased about a week prior to admission from 20 mg daily (dose x years) to 40 mg bid. Also not taking his meds for a few days before admission. hx nephrotic range proteinuria in past >likeliest dx though is nonoliguric ischemic ATN from HF/hemodynamic changes w/ recent AF dx and cellulitis. 1.7 gm proteinuria daily and very concentrated urine w/ a few granular casts/ not clean catch/ no UTI; also trace blood/ glucose. renal u/s unrevealing ->>>>cont lasix 60 mg iv tid and follow creat -cont to hold ACEI -no elias needed for now >>>>will give K po daily 20 meq - cont daily bmp -f/u pending spep, upep; would hold off on gallagher work up as glomerular disease at this time (2) CKD (chronic kidney disease) stage 4, GFR 15-29 ml/min: Baseline creatinine had been mid 2's; hx of nephrotic range proteinuria; presented w/ elements of nephrotic syndrome; advanced CKD from DM, HTN, obesity, macro/microvascular disease -pls be sure at d/c he goes out on ASA 81 and not 325 mg daily -needs OP CKD clinic f/u; has already told me he has no $ for this ->>did d/w family may well have progression of dz and now be heading to [id number]; cannot r/o need for dialysis this admission but improvement in labs today is hopeful >BL adrenal nodules noted on CT > doubt role for this in htn; 3.4 cm R adrenal nodule should likely have f/u imaging to ensure not growing in 6-12 mos (3) Volume overload: improving slightly. we have little baseline data on his OP weight: looks like was about 118kg in 2017; then in 2018 has 110 kg one time reading; then 2019 has been about 125 kg. -follow daily standing wts - first standing one is 115.3 on 02/11; large gain on wts today/yesterday -- following wts next few days will show which is correct 02/11 or 02/12; d/t pt weakness accurate wts a challenge and team efforts appreciated -cont sodium/ FR >>>>cont lasix 60 IV 3 daily doses given q6h (6A, noon, 6P) w/o MN dose (timed so as not to disrupt sleep) -reviewed w/ pharmacy and no need to concentrate ABTX which have minimal salt and volume load -add spironolactone when appropriate for HF; not likely this admission Subjective seen this am on rounds about 720; speaks in full sentences today briefly; hearing limits him; denies leg/mm pain, anxious for d/c, thinks breathing/swelling better; no n/v; no voiding concerns Physical Exam Vital Signs (Past 24 Hours): Last Vital Signs Temp 36.9 C 02/16/19 15:47 Pulse 80 02/16/19 16:00 Resp 18 02/16/19 15:47 BP 138/60 02/16/19 17:35 Pulse Ox 92 02/16/19 15:47 Constitutional: well developed, well nourished and + obese sitting on side of bed on ra Eyes: EOM intact bilaterally ENMT: Ears: no external ear abnormality Nose: no external nose abnormality Mouth: + dry oral mucous membranes Neck: no nuchal rigidity Respiratory: Auscultation: + diminished lung sounds (very diminished air entry) Cardiovascular: Rate/Rhythm: regular rate and regular rhythm Extremities: + edema (2+ pedal, 1+ BL to mid thigh; less indurated) Gastrointestinal (Abdomen): Inspection/Auscultation: normal bowel sounds Percussion/Palpation: abdomen soft; abdomen nontender Musculoskeletal: Extremities: strength 5/5 throughout Skin: + lesion (BLE w/ blisters, excoriations) and + erythema (worse R foot than L) Neurologic: valle, fluent speech, speaks a few full sentences (a first) Psychiatric: Orientation: oriented to person, oriented to place and cooperative (but lethargic) Speech: normal rate/rhythm/volume of speech Insight: + limited insight Judgement: + limited judgement Results & Data Laboratory Results Abnormal lab results 02/15/19 02/15/19 02/16/19 Range/Units 16:52 20:26 06:00 RBC (4.7-6.1) M/uL Hgb (14.0-18.0) g/dL Hct (42-52) % MCHC (32-36) g/dL RDW Std Deviation (36.4-46.3) fL RDW Coeff of Kiah (11.5-14.5) % Immature Gran # (Auto) (0.00-0.02) K/uL Lymph # (Auto) (1.2-3.4) K/uL [place] # (Auto) (0.11-0.59) K/uL PT (9.0-12.0) Seconds INR (0.9-1.1) Carbon Dioxide 33 H (21-32) mmol/L BUN 65 H (7-18) mg/dl Creatinine 3.78 H (0.6-1.4) mg/dl Glucose 137 H (70-99) mg/dl POC Glucose 134 H 209 H (70-99) Calcium 8.3 L (8.5-10.1) mg/dl 02/16/19 02/16/19 02/16/19 Range/Units 06:00 06:00 07:36 RBC 3.63 L (4.7-6.1) M/uL Hgb 10.2 L (14.0-18.0) g/dL Hct 32.3 L (42-52) % MCHC 31.6 L (32-36) g/dL RDW Std Deviation 50.7 H (36.4-46.3) fL RDW Coeff of Kiah 15.7 H (11.5-14.5) % Immature Gran # (Auto) 0.03 H (0.00-0.02) K/uL Lymph # (Auto) 0.71 L (1.2-3.4) K/uL [place] # (Auto) 0.75 H (0.11-0.59) K/uL PT 17.1 H (9.0-12.0) Seconds INR 1.7 H (0.9-1.1) Carbon Dioxide (21-32) mmol/L BUN (7-18) mg/dl Creatinine (0.6-1.4) mg/dl Glucose (70-99) mg/dl POC Glucose 141 H (70-99) Calcium (8.5-10.1) mg/dl 02/16/19 02/16/19 Range/Units 11:43 16:47 RBC (4.7-6.1) M/uL Hgb (14.0-18.0) g/dL Hct (42-52) % MCHC (32-36) g/dL RDW Std Deviation (36.4-46.3) fL RDW Coeff of Kiah (11.5-14.5) % Immature Gran # (Auto) (0.00-0.02) K/uL Lymph # (Auto) (1.2-3.4) K/uL [place] # (Auto) (0.11-0.59) K/uL PT (9.0-12.0) Seconds INR (0.9-1.1) Carbon Dioxide (21-32) mmol/L BUN (7-18) mg/dl Creatinine (0.6-1.4) mg/dl Glucose (70-99) mg/dl POC Glucose 212 H 181 H (70-99) Calcium (8.5-10.1) mg/dl
[2019-02-16] MEDS: POTASSIUM CHLORIDE 20 MEQ TABCR PO SCH (21:07)
[2019-02-17] MEDS: FUROSEMIDE 60 MG in SYRINGE 0 ML IV SCH ×4 (06:27→17:43)
[2019-02-17 07:40] LABS: BUN Creatinine Ratio 15.3 (10-20); Calcium 8.9 mg/dl (8.5-10.1); Creatinine Clr Calc Pharmacy 23.9 ml/min; Est GFR (African American) 19.4; Est GFR (Non-African American) 16.8; Potassium 3.5 mmol/L (3.5-5.1)
[2019-02-17] MEDS: ESCITALOPRAM OXALATE 10 MG TAB PO SCH (08:29)
[2019-02-17] MEDS: POTASSIUM CHLORIDE 20 MEQ TABCR PO SCH ×2 (08:30→20:55)
[2019-02-17] MEDS: METOPROLOL SUCC 50MG EXT REL TAB PO SCH (08:30)
[2019-02-17] MEDS: ASPIRIN 81 MG ECTAB PO SCH (08:30)
[2019-02-17] MEDS: HEPARIN SOD 5,000 UNIT/0.5 ML VIAL SQ SCH ×2 (08:31→20:52)
[2019-02-17] MEDS: EUCERIN CR 120 GM JAR EXT SCH ×2 (08:31→20:51)
[2019-02-17] MEDS: INSULIN GLARGINE SOLOSTAR 100 UNITS/ML 3 ML PEN SC SCH ×2 (08:32→20:58)
[2019-02-17] MEDS: INSULIN ASPART 100 UNITS/ML 3 ML PEN SC SCH ×4 (09:44→20:57)
--- NOTE | 2019-02-17 10:18 | Nephrology Progress Note ---
Date of Service February 17, 2019 Assessment & Plan (1) BRANDEE (acute kidney injury): FURTHER IMPROVING Baseline creatinine [id number] in low 2's w/ one reading in past 10 mos at 2.5 on 12/29, presented 02/09 w/ creat 3.6; worse w/ diuresis to peak at 4.6; slowly trending down now. As OP his lasix had been increased about a week prior to admission from 20 mg daily (dose x years) to 40 mg bid. Also not taking his meds for a few days before admission. hx nephrotic range proteinuria in past >likeliest dx though is nonoliguric ischemic ATN from HF/hemodynamic changes w/ recent AF dx and cellulitis. 1.7 gm proteinuria daily and very concentrated urine w/ a few granular casts/ not clean catch/ no UTI; also trace blood/ glucose. renal u/s unrevealing ->>>>cont lasix 60 mg iv tid and follow creat -cont to hold ACEI -no elias needed for now >>>increased K po daily 20 meq to bid - cont daily bmp -f/u pending spep, upep; would hold off on gallagher work up as glomerular disease at this time (2) CKD (chronic kidney disease) stage 4, GFR 15-29 ml/min: Baseline creatinine had been mid 2's; hx of nephrotic range proteinuria; presented w/ elements of nephrotic syndrome; advanced CKD from DM, HTN, obesity, macro/microvascular disease -pls be sure at d/c he goes out on ASA 81 and not 325 mg daily -needs OP CKD clinic f/u; has already told me he has no $ for this >BL adrenal nodules noted on CT > doubt role for this in htn; 3.4 cm R adrenal nodule should likely have f/u imaging to ensure not growing in 6-12 mos (3) Volume overload: improving slightly. we have little baseline data on his OP weight: looks like was about 118kg in 2017; then in 2018 has 110 kg one time reading; then 2019 has been about 125 kg. -follow daily standing wts - first standing one is 115.3 on 02/11; large gain on wts today/yesterday -- following wts next few days will show which is correct 02/11 or 02/12; d/t pt weakness accurate wts a challenge and team efforts appreciated; 114.6 on 02/17 -cont sodium/ FR >>>>cont lasix 60 IV 3 daily doses given q6h (6A, noon, 6P) w/o MN dose (timed so as not to disrupt sleep) -reviewed w/ pharmacy and no need to concentrate ABTX which have minimal salt and volume load -add spironolactone when appropriate for HF; not likely this admission Subjective seen on rounds this afternoon. breathing improving. r leg less pain ful but still sore. edema improving some. anxious for d/c Physical Exam Vital Signs (Past 24 Hours): Last Vital Signs Temp 37.5 C 02/17/19 07:27 Pulse 82 02/17/19 07:27 Resp 16 02/17/19 07:27 BP 128/59 L 02/17/19 07:27 Pulse Ox 95 02/17/19 07:27 Constitutional: well developed, well nourished and + obese on 02NC lying in bed Eyes: EOM intact bilaterally R eye blind ENMT: Ears: no external ear abnormality Nose: no external nose abnormality Mouth: + dry oral mucous membranes Neck: no nuchal rigidity Respiratory: Auscultation: + diminished lung sounds (very diminished air entry) Cardiovascular: Rate/Rhythm: regular rate and regular rhythm Extremities: + edema (2+ pedal, 1+ BL to mid thigh; indurated) Gastrointestinal (Abdomen): Inspection/Auscultation: normal bowel sounds Percussion/Palpation: abdomen soft; abdomen nontender Musculoskeletal: Extremities: strength 5/5 throughout Skin: + lesion (BLE w/ blisters, excoriations) and + erythema (worse R foot than L) Psychiatric: Orientation: oriented to person, oriented to place and cooperative (but lethargic) Speech: normal rate/rhythm/volume of speech Insight: + limited insight Judgement: + limited judgement Results & Data Laboratory Results Abnormal lab results 02/16/19 02/16/19 02/16/19 Range/Units 11:43 16:47 20:19 Carbon Dioxide (21-32) mmol/L BUN (7-18) mg/dl Creatinine (0.6-1.4) mg/dl Glucose (70-99) mg/dl POC Glucose 212 H 181 H 159 H (70-99) 02/17/19 02/17/19 Range/Units 06:50 07:40 Carbon Dioxide 36 H (21-32) mmol/L BUN 51 H (7-18) mg/dl Creatinine 3.33 H D (0.6-1.4) mg/dl Glucose 109 H (70-99) mg/dl POC Glucose 126 H (70-99)
[2019-02-17] MEDS: PIPERACILLIN/TAZOBACTAM 4.5 GM in DEXTROSE 5% 100 ML IV SCH (11:22)
--- NOTE | 2019-02-17 13:02 | Hospitalist Progress Note ---
Date of Service February 17, 2019 Assessment & Plan (1) CHF (congestive heart failure): Acute on chronic diastolic CHF exacerbation Did not take his medications since last 3 days ECHO: Grade III diastolic dysfunciton Continue IV Lasix per Nephrology Daily weight, I/Os, fluid restriction Low sodium diet Appreciate Cardiology Input and recommendation We will get PT and OT evaluation Clinically a lot better today without any significant symptoms at rest Continue current treatment Remains stable medically and can be discharged Encephalopathy Acute delirium CT head: No acute changes Normal Ammonia level ABG:Mild Hypercarbia Avoid narcotics and benzodiazepines Appreciate neurology Input No more delirium Afib RVR: Diagnosed in Nov 2018 Rate controlled Continue metoprolol Monitor INR1.7 on 02/16 Left Lower Lobe Pneumonia-POA CXR:asymmetric density at the left lung base noted Procalcitonin trending down Continue Abx Blood Cultures:No growth to date We will finish the course of antibiotic Antibiotic and changed to doxycycline and Keflex-we will continue another 4 days B/L LE cellulitis: Normal Lactate levels Venous Doppler:There is no sonographic evidence of deep venous thrombosis identified in the right lower extremity. Ankle X ray:No acute fracture or evidence of osteomyelitis. Moderate soft tissue swelling. Foot X ray:No acute fractures. Dorsal soft tissue swelling No destructive lesions are visualized Continue Daptomycin and Zosyn Day#7 Wound Cultures:Group G beta Strep, Staph Appreciate Wound Care Transition to PO Abx as able A lot better BRANDEE on CKD IV: Likely ATN Hold Lisinopril, Statin Avoid NSAIDs Baseline Cr:2.5 in Nov 2018 Renal USD:The kidneys demonstrate mild cortical atrophy and are without hydronephrosis. Avoid nephro toxic agents Appreciate Nephrology Input and recommendation May need dialysis if continues to worsen DM II hold oral diabetic meds Last A1c:7.1 in Nov 2018 ISS, basal Insulin, Accu checks, Diabetic diet Updated A1C:7.7 Dyslipidemia Hold Statin for now while on Dapto Mechanical Fall: PT/OT Fall precuations CARLOS ALBERTO Not on CPAP Depression Will start Lexapro 10 mg daily Tobacco use disorder Refuses Nicotine Patch DVT Px: Coumadin INR-1. 7 today Code Status DNI/DNR Disposition: PT/OT Costume Technician consulted for discharge planning Discussed with the and the daughter Likely to be discharged tomorrow to rehab Awaiting rehab placement Subjective The patient was seen and examined in medical telemetry He is a 78-year-old male with history of DM II, CHF, CKD IV, atrial fibrillation, dyslipidemia, CARLOS ALBERTO, tobacco use disorder, hypertension and other problems presents with history of worsening bilateral leg swelling and pain since 1 week duration. Lying in bed comfortably Looks depressed and anxious awaiting to be seen by the family members He was crying in presence of the covering his face Denies any discomfort 02/16 The patient was seen and examined in presence of the daughter and the He has been less confused today and denies any significant symptoms Physical therapy recommended rehab but the patient wants to go home Likely to be discharged tomorrow 02/17 The patient was seen and examined the medical floor He remains stable and wants to go home He does not have any more depressive symptoms Physical Exam Vital Signs (Past 24 Hours): Last Vital Signs Temp 37.0 C 02/17/19 11:45 Pulse 80 02/17/19 11:45 Resp 16 02/17/19 11:45 BP 127/65 02/17/19 11:45 Pulse Ox 92 02/17/19 11:45 Physical Exam: Lying in bed comfortably Constitutional: well developed, well nourished and + obese Eyes: EOM intact bilaterally ENMT: Mouth: + dry oral mucous membranes Neck: no nuchal rigidity Respiratory: normal respiratory effort Auscultation: + breath sounds absent (L posterior field 1/[address] way up), + diminished lung sounds (does not cooperate w/ lung exam; breathing appears easier today a bit) and + crackles (Minimally at the bases) Cardiovascular: Rate/Rhythm: regular rate and regular rhythm Extremities: + edema (1-2+ edema bilaterally with chronic skin changes) Gastrointestinal (Abdomen): Inspection/Auscultation: normal bowel sounds Percussion/Palpation: abdomen soft; abdomen nontender Skin: + lesion (BLE w/ blisters, excoriations), + skin tightening and + erythema (worse R foot than L) Psychiatric: Orientation: oriented to person, oriented to place, oriented to time and cooperative (but lethargic) Speech: normal rate/rhythm/volume of speech Insight: + limited insight Judgement: + limited judgement Results & Data Laboratory Results [facility] 02/17/19 06:50 Sodium 141 Potassium 3.5 Chloride 101 Carbon Dioxide 36 H BUN 51 H Creatinine 3.33 H D Glucose 109 H Calcium 8.9 Medications Administered Current Inpatient Medications Acetaminophen (Tylenol) 650 mg PO Q4H PRN PRN Reason: Pain or Fever Stop: 03/11/19 18:35 Last Admin: 02/13/19 06:39 Dose: 650 mg Documented by: Aspirin (Ecotrin Ectab) 81 mg PO QAM [facility] Stop: 03/12/19 08:59 Last Admin: 02/17/19 08:30 Dose: 81 mg Documented by: Cephalexin HCl (Keflex) 250 mg PO BID [facility]; Protocol Stop: 02/22/19 20:59 Dextrose (Dextrose 50%) 25 - 50 ml IV UD PRN; Protocol PRN Reason: Hypoglycemia Protocol Stop: 03/11/19 18:35 Doxycycline Hyclate (Vibramycin) 100 mg PO BID [facility]; Protocol Stop: 02/22/19 20:59 Escitalopram Oxalate (Lexapro) 10 mg PO QAM [facility] Stop: 03/17/19 11:44 Last Admin: 02/17/19 08:29 Dose: 10 mg Documented by: Glucagon (Glucagen) 1 mg SQ UD PRN; Protocol PRN Reason: Hypoglycemia Protocol Stop: 03/11/19 18:35 Glucose (Glucose 40%) 15 - 30 gm PO UD PRN; Protocol PRN Reason: Hypoglycemia Protocol Stop: 03/11/19 18:35 Glucose (Dex4 Glucose) 4 - 8 tabs PO UD PRN; Protocol PRN Reason: Hypoglycemia Protocol Stop: 03/11/19 18:35 Heparin Sodium (Porcine) (Heparin Sodium (Porcine)) 5,000 units SQ Q12 [facility] Stop: 03/13/19 11:59 Last Admin: 02/17/19 08:31 Dose: 5,000 units Documented by: Furosemide 60 mg/ Syringe 6 mls @ 4 mls/min IV DAILY@0600,1200,1800 [facility] Stop: 03/14/19 13:14 Last Admin: 02/17/19 11:22 Dose: 4 mls/min Documented by: Insulin Aspart (Novolog Flexpen) 0 units SC ACHS [facility] Stop: 03/11/19 20:59 Last Admin: 02/17/19 09:44 Dose: 2 units Documented by: Insulin Glargine (Lantus Solostar Pen) 10 units SC Q12H [facility] Stop: 03/11/19 20:59 Last Admin: 02/17/19 08:32 Dose: 10 units Documented by: Lovastatin (Mevacor) 80 mg PO PM [facility] Stop: 03/19/19 20:59 Metoprolol Succinate (Toprol Xl) 50 mg PO DAILY [facility] Stop: 03/11/19 18:35 Last Admin: 02/17/19 08:30 Dose: 50 mg Documented by: Miscellaneous (Carbohydrates For Hypoglycemia) 15 - 30 gm PO UD PRN PRN Reason: Hypoglycemia Treatment Stop: 03/11/19 18:35 Multi-Ingredient Cream (Hydrocerin) 1 appln EXT BID [facility] Stop: 03/18/19 10:14 Last Admin: 02/17/19 08:31 Dose: 1 appln Documented by: Polyethylene Glycol (Miralax Powder Packet) 17 gm PO DAILY PRN PRN Reason: Constipation Stop: 03/11/19 18:35 Potassium Chloride (Klor-Con M20) 20 meq PO QAM [facility] Stop: 03/18/19 18:29 Last Admin: 02/17/19 08:30 Dose: 20 meq Documented by: Warfarin Sodium (Coumadin) 6 mg PO DAILY@1600 [facility] Stop: 03/16/19 15:59 Last Admin: 02/16/19 16:00 Dose: 6 mg Documented by: (1) CHF (congestive heart failure) Heart failure type: diastolic Heart failure chronicity: acute on chronic Qualified Code(s): I50.33 - Acute on chronic diastolic (congestive) heart failure
[2019-02-17] MEDS: WARFARIN SOD 6 MG TAB PO SCH (16:25)
[2019-02-17] MEDS: cephALEXin 250 MG CAP PO SCH (20:54)
[2019-02-17] MEDS: LOVASTATIN 20 MG TAB PO SCH (20:54)
[2019-02-17] MEDS: DOXYCYCLINE HYCLATE 100 MG CAP PO SCH (20:55)
[2019-02-18 05:49] LABS: Calcium 8.4 mg/dl (8.5-10.1); Creatinine Clr Calc Pharmacy 24.9 ml/min; Est GFR (African American) 20.5; Est GFR (Non-African American) 17.7; Potassium 3.8 mmol/L (3.5-5.1)
[2019-02-18] MEDS: FUROSEMIDE 60 MG in SYRINGE 0 ML IV SCH ×3 (05:58→18:14)
[2019-02-18] MEDS: DOXYCYCLINE HYCLATE 100 MG CAP PO SCH ×2 (09:03→21:31)
[2019-02-18] MEDS: cephALEXin 250 MG CAP PO SCH ×2 (09:03→21:31)
[2019-02-18] MEDS: METOPROLOL SUCC 50MG EXT REL TAB PO SCH (09:03)
[2019-02-18] MEDS: ASPIRIN 81 MG ECTAB PO SCH (09:03)
[2019-02-18] MEDS: ESCITALOPRAM OXALATE 10 MG TAB PO SCH (09:03)
[2019-02-18] MEDS: EUCERIN CR 120 GM JAR EXT SCH ×2 (09:03→21:29)
[2019-02-18] MEDS: HEPARIN SOD 5,000 UNIT/0.5 ML VIAL SQ SCH ×2 (09:04→21:29)
[2019-02-18] MEDS: POTASSIUM CHLORIDE 20 MEQ TABCR PO SCH ×2 (09:04→21:32)
[2019-02-18] MEDS: INSULIN GLARGINE SOLOSTAR 100 UNITS/ML 3 ML PEN SC SCH ×2 (09:06→21:33)
[2019-02-18] MEDS: INSULIN ASPART 100 UNITS/ML 3 ML PEN SC SCH ×4 (09:07→21:36)
--- NOTE | 2019-02-18 12:19 | Hospitalist Progress Note ---
Date of Service February 18, 2019 Assessment & Plan (1) CHF (congestive heart failure): Acute on chronic diastolic CHF exacerbation Did not take his medications since last 3 days ECHO: Grade III diastolic dysfunciton Continue IV Lasix per Nephrology Daily weight, I/Os, fluid restriction Low sodium diet Appreciate Cardiology Input and recommendation We will get PT and OT evaluation Clinically a lot better today without any significant symptoms at rest Still on intravenous Lasix Remains medically stable Encephalopathy-resolved Acute delirium CT head: No acute changes Normal Ammonia level ABG:Mild Hypercarbia Avoid narcotics and benzodiazepines Appreciate neurology Input No more delirium Afib RVR: Diagnosed in Nov 2018 Rate controlled Continue metoprolol Monitor INR1.7 on 02/16 Check INR tomorrow Left Lower Lobe Pneumonia-POA CXR:asymmetric density at the left lung base noted Procalcitonin trending down Continue Abx Blood Cultures:No growth to date We will finish the course of antibiotic Antibiotic and changed to doxycycline and Keflex-we will continue another 4 days B/L LE cellulitis: Normal Lactate levels Venous Doppler:There is no sonographic evidence of deep venous thrombosis identified in the right lower extremity. Ankle X ray:No acute fracture or evidence of osteomyelitis. Moderate soft tissue swelling. Foot X ray:No acute fractures. Dorsal soft tissue swelling No destructive lesions are visualized Continue Daptomycin and Zosyn Day#7 Wound Cultures:Group G beta Strep, Staph Appreciate Wound Care Transition to PO Abx as able A lot better BRANDEE on CKD IV: Likely ATN Hold Lisinopril, Statin Avoid NSAIDs Baseline Cr:2.5 in Nov 2018 Renal USD:The kidneys demonstrate mild cortical atrophy and are without hydronephrosis. Avoid nephro toxic agents Appreciate Nephrology Input and recommendation Creatinine is getting better gradually DM II hold oral diabetic meds Last A1c:7.1 in Nov 2018 ISS, basal Insulin, Accu checks, Diabetic diet Updated A1C:7.7 Dyslipidemia Hold Statin for now while on Dapto Mechanical Fall: PT/OT Fall precuations CARLOS ALBERTO Not on CPAP Depression Will start Lexapro 10 mg daily Tobacco use disorder Refuses Nicotine Patch DVT Px: Coumadin INR-1. 7 today Code Status DNI/DNR Disposition: PT/OT Emt Intermediate consulted for discharge planning Discussed with the and the daughter Likely to be discharged tomorrow to rehab Awaiting rehab placement Subjective The patient was seen and examined in medical telemetry He is a 78-year-old male with history of DM II, CHF, CKD IV, atrial fibrillation, dyslipidemia, CARLOS ALBERTO, tobacco use disorder, hypertension and other problems presents with history of worsening bilateral leg swelling and pain since 1 week duration. Lying in bed comfortably Looks depressed and anxious awaiting to be seen by the family members He was crying in presence of the covering his face Denies any discomfort 02/16 The patient was seen and examined in presence of the daughter and the He has been less confused today and denies any significant symptoms Physical therapy recommended rehab but the patient wants to go home Likely to be discharged tomorrow 02/17 The patient was seen and examined the medical floor He remains stable and wants to go home He does not have any more depressive symptoms 02/18 He remains stable and wants to go home Has been waiting for rehab placement He denies any symptoms today Physical Exam Vital Signs (Past 24 Hours): Last Vital Signs Temp 36.9 C 02/18/19 11:32 Pulse 90 02/18/19 11:32 Resp 16 02/18/19 11:32 BP 103/35 L 02/18/19 11:32 Pulse Ox 96 02/18/19 11:32 Physical Exam: Lying in bed comfortably Constitutional: well developed, well nourished and + obese Eyes: EOM intact bilaterally ENMT: Mouth: + dry oral mucous membranes Neck: no nuchal rigidity Respiratory: normal respiratory effort Auscultation: + breath sounds absent (L posterior field 1/2 way up), + diminished lung sounds (does not cooperate w/ lung exam; breathing appears easier today a bit) and + crackles (Minimally at the bases) Cardiovascular: Rate/Rhythm: regular rate and regular rhythm Extremities: + edema (1-2+ edema bilaterally with chronic skin changes) Gastrointestinal (Abdomen): Inspection/Auscultation: normal bowel sounds Percussion/Palpation: abdomen soft; abdomen nontender Skin: + lesion (BLE w/ blisters, excoriations), + skin tightening and + erythema (worse R foot than L) Psychiatric: Orientation: oriented to person, oriented to place, oriented to time and cooperative (but lethargic) Speech: normal rate/rhythm/volume of speech Insight: + limited insight Judgement: + limited judgement Results & Data Laboratory Results [facility] 02/18/19 04:48 Sodium 140 Potassium 3.8 Chloride 100 Carbon Dioxide 38 H BUN 48 H Creatinine 3.19 H Glucose 118 H Calcium 8.4 L Medications Administered Current Inpatient Medications Acetaminophen (Tylenol) 650 mg PO Q4H PRN PRN Reason: Pain or Fever Stop: 03/11/19 18:35 Last Admin: 02/13/19 06:39 Dose: 650 mg Documented by: Aspirin (Ecotrin Ectab) 81 mg PO QAM [facility] Stop: 03/12/19 08:59 Last Admin: 02/18/19 09:03 Dose: 81 mg Documented by: Cephalexin HCl (Keflex) 250 mg PO BID [facility]; Protocol Stop: 02/22/19 20:59 Last Admin: 02/18/19 09:03 Dose: 250 mg Documented by: Dextrose (Dextrose 50%) 25 - 50 ml IV UD PRN; Protocol PRN Reason: Hypoglycemia Protocol Stop: 03/11/19 18:35 Doxycycline Hyclate (Vibramycin) 100 mg PO BID [facility]; Protocol Stop: 02/22/19 20:59 Last Admin: 02/18/19 09:03 Dose: 100 mg Documented by: Escitalopram Oxalate (Lexapro) 10 mg PO QAM [facility] Stop: 03/17/19 11:44 Last Admin: 02/18/19 09:03 Dose: 10 mg Documented by: Glucagon (Glucagen) 1 mg SQ UD PRN; Protocol PRN Reason: Hypoglycemia Protocol Stop: 03/11/19 18:35 Glucose (Glucose 40%) 15 - 30 gm PO UD PRN; Protocol PRN Reason: Hypoglycemia Protocol Stop: 03/11/19 18:35 Glucose (Dex4 Glucose) 4 - 8 tabs PO UD PRN; Protocol PRN Reason: Hypoglycemia Protocol Stop: 03/11/19 18:35 Heparin Sodium (Porcine) (Heparin Sodium (Porcine)) 5,000 units SQ Q12 [facility] Stop: 03/13/19 11:59 Last Admin: 02/18/19 09:04 Dose: 5,000 units Documented by: Furosemide 60 mg/ Syringe 6 mls @ 4 mls/min IV DAILY@0600,1200,1800 [facility] Stop: 03/14/19 13:14 Last Admin: 02/18/19 05:58 Dose: 4 mls/min Documented by: Insulin Aspart (Novolog Flexpen) 0 units SC ACHS [facility] Stop: 03/11/19 20:59 Last Admin: 02/18/19 09:07 Dose: 5 units Documented by: Insulin Glargine (Lantus Solostar Pen) 10 units SC Q12H [facility] Stop: 03/11/19 20:59 Last Admin: 02/18/19 09:06 Dose: 10 units Documented by: Lovastatin (Mevacor) 80 mg PO PM [facility] Stop: 03/19/19 20:59 Last Admin: 02/17/19 20:54 Dose: 80 mg Documented by: Metoprolol Succinate (Toprol Xl) 50 mg PO DAILY [facility] Stop: 03/11/19 18:35 Last Admin: 02/18/19 09:03 Dose: 50 mg Documented by: Miscellaneous (Carbohydrates For Hypoglycemia) 15 - 30 gm PO UD PRN PRN Reason: Hypoglycemia Treatment Stop: 03/11/19 18:35 Multi-Ingredient Cream (Hydrocerin) 1 appln EXT BID [facility] Stop: 03/18/19 10:14 Last Admin: 02/18/19 09:03 Dose: 1 appln Documented by: Polyethylene Glycol (Miralax Powder Packet) 17 gm PO DAILY PRN PRN Reason: Constipation Stop: 03/11/19 18:35 Potassium Chloride (Klor-Con M20) 20 meq PO BID [facility] Stop: 03/19/19 20:59 Last Admin: 02/18/19 09:04 Dose: 20 meq Documented by: Warfarin Sodium (Coumadin) 6 mg PO DAILY@1600 [facility] Stop: 03/16/19 15:59 Last Admin: 02/17/19 16:25 Dose: 6 mg Documented by: (1) CHF (congestive heart failure) Heart failure type: diastolic Heart failure chronicity: acute on chronic Qualified Code(s): I50.33 - Acute on chronic diastolic (congestive) heart failure
[2019-02-18] MEDS: WARFARIN SOD 6 MG TAB PO SCH (15:47)
[2019-02-18] MEDS: LOVASTATIN 20 MG TAB PO SCH (21:30)
[2019-02-19] MEDS: FUROSEMIDE 60 MG in SYRINGE 0 ML IV SCH ×3 (06:13→17:45)
[2019-02-19 06:29] LABS: INR 1.9 (0.9-1.1); Prothrombin Time 18.6 Seconds (9.0-12.0)
[2019-02-19 06:40] LABS: BUN Creatinine Ratio 15.8 (10-20); Calcium 8.1 mg/dl (8.5-10.1); Creatinine Clr Calc Pharmacy 25.5 ml/min; Est GFR (African American) 21.2; Est GFR (Non-African American) 18.3
[2019-02-19] MEDS: cephALEXin 250 MG CAP PO SCH ×2 (09:22→20:15)
[2019-02-19] MEDS: ASPIRIN 81 MG ECTAB PO SCH (09:22)
[2019-02-19] MEDS: POTASSIUM CHLORIDE 20 MEQ TABCR PO SCH ×2 (09:22→20:14)
[2019-02-19] MEDS: METOPROLOL SUCC 50MG EXT REL TAB PO SCH (09:22)
[2019-02-19] MEDS: DOXYCYCLINE HYCLATE 100 MG CAP PO SCH ×2 (09:22→20:13)
[2019-02-19] MEDS: ESCITALOPRAM OXALATE 10 MG TAB PO SCH (09:22)
[2019-02-19] MEDS: INSULIN GLARGINE SOLOSTAR 100 UNITS/ML 3 ML PEN SC SCH ×2 (09:23→21:57)
[2019-02-19] MEDS: HEPARIN SOD 5,000 UNIT/0.5 ML VIAL SQ SCH ×2 (09:23→21:56)
[2019-02-19] MEDS: INSULIN ASPART 100 UNITS/ML 3 ML PEN SC SCH ×4 (09:25→21:58)
[2019-02-19] MEDS: EUCERIN CR 120 GM JAR EXT SCH ×2 (09:28→21:57)
--- NOTE | 2019-02-19 12:25 | Hospitalist Progress Note ---
Date of Service February 19, 2019 Assessment & Plan (1) CHF (congestive heart failure): Acute on chronic diastolic CHF exacerbation Did not take his medications since last 3 days ECHO: Grade III diastolic dysfunciton Continue IV Lasix per Nephrology Daily weight, I/Os, fluid restriction Low sodium diet Appreciate Cardiology Input and recommendation We will get PT and OT evaluation Will need short-term rehab Stable cardiac gutierrez Encephalopathy-resolved Acute delirium CT head: No acute changes Normal Ammonia level ABG:Mild Hypercarbia Avoid narcotics and benzodiazepines Appreciate neurology Input No more delirium Afib RVR: Diagnosed in Nov 2018 Rate controlled Continue metoprolol Monitor INR1.7 on 02/16 INR is 1.9 today that is 02/19 Left Lower Lobe Pneumonia-POA CXR:asymmetric density at the left lung base noted Procalcitonin trending down Continue Abx Blood Cultures:No growth to date We will finish the course of antibiotic Antibiotic and changed to doxycycline and Keflex-we will continue another 4 days No signs of infection B/L LE cellulitis: Normal Lactate levels Venous Doppler:There is no sonographic evidence of deep venous thrombosis identified in the right lower extremity. Ankle X ray:No acute fracture or evidence of osteomyelitis. Moderate soft tissue swelling. Foot X ray:No acute fractures. Dorsal soft tissue swelling No destructive lesions are visualized Continue Daptomycin and Zosyn Day#7 Wound Cultures:Group G beta Strep, Staph Appreciate Wound Care Has been on p.o. antibiotic BRANDEE on CKD IV: Likely ATN Hold Lisinopril, Statin Avoid NSAIDs Baseline Cr:2.5 in Nov 2018 Renal USD:The kidneys demonstrate mild cortical atrophy and are without hydronephrosis. Avoid nephro toxic agents Appreciate Nephrology Input and recommendation Creatinine is getting better gradually DM II hold oral diabetic meds Last A1c:7.1 in Nov 2018 ISS, basal Insulin, Accu checks, Diabetic diet Updated A1C:7.7 Dyslipidemia Hold Statin for now while on Dapto Mechanical Fall: PT/OT Fall precuations CARLOS ALBERTO Not on CPAP Depression Will start Lexapro 10 mg daily Tobacco use disorder Refuses Nicotine Patch DVT Px: Coumadin INR-1. 7 today Code Status DNI/DNR Disposition: PT/OT Molder Punch consulted for discharge planning Discussed with the and the daughter Likely to be discharged tomorrow to rehab Awaiting rehab placement Subjective The patient was seen and examined in medical telemetry He is a 78-year-old male with history of DM II, CHF, CKD IV, atrial fibrillation, dyslipidemia, CARLOS ALBERTO, tobacco use disorder, hypertension and other problems presents with history of worsening bilateral leg swelling and pain since 1 week duration. Lying in bed comfortably Looks depressed and anxious awaiting to be seen by the family members He was crying in presence of the covering his face Denies any discomfort 02/16 The patient was seen and examined in presence of the daughter and the He has been less confused today and denies any significant symptoms Physical therapy recommended rehab but the patient wants to go home Likely to be discharged tomorrow 02/17 The patient was seen and examined the medical floor He remains stable and wants to go home He does not have any more depressive symptoms 02/18 He remains stable and wants to go home Has been waiting for rehab placement He denies any symptoms today 02/19 He remains stable without any symptoms whatsoever He wants to go home He was told that he has been waiting to go for a short-term rehab Physical Exam Vital Signs (Past 24 Hours): Last Vital Signs Temp 36.9 C 02/19/19 11:14 Pulse 90 02/19/19 11:14 Resp 18 02/19/19 11:14 BP 120/56 L 02/19/19 11:14 Pulse Ox 94 02/19/19 11:14 Physical Exam: No apparent distress at rest Constitutional: well developed, well nourished and + obese Eyes: EOM intact bilaterally ENMT: Mouth: + dry oral mucous membranes Neck: no nuchal rigidity Respiratory: normal respiratory effort Auscultation: + breath sounds absent (L posterior field 1/2 way up), + diminished lung sounds (does not cooperate w/ lung exam; breathing appears easier today a bit) and + crackles (Minimally at the bases) Cardiovascular: Rate/Rhythm: regular rate and regular rhythm Extremities: + edema (1+ edema bilaterally with chronic ischemic changes but no open wounds) Gastrointestinal (Abdomen): Inspection/Auscultation: normal bowel sounds Percussion/Palpation: abdomen soft; abdomen nontender Skin: + lesion (BLE w/ blisters, excoriations), + skin tightening and + erythema (worse R foot than L) Psychiatric: Orientation: oriented to person, oriented to place, oriented to time and cooperative (but lethargic) Speech: normal rate/rhythm/volume of speech Insight: + limited insight Judgement: + limited judgement Results & Data Laboratory Results [facility] 02/19/19 05:43 Sodium 141 Potassium 4.0 Chloride 100 Carbon Dioxide 36 H BUN 49 H Creatinine 3.10 H Glucose 97 Calcium 8.1 L Medications Administered Current Inpatient Medications Acetaminophen (Tylenol) 650 mg PO Q4H PRN PRN Reason: Pain or Fever Stop: 03/11/19 18:35 Last Admin: 02/13/19 06:39 Dose: 650 mg Documented by: Aspirin (Ecotrin Ectab) 81 mg PO QAM [facility] Stop: 03/12/19 08:59 Last Admin: 02/19/19 09:22 Dose: 81 mg Documented by: Cephalexin HCl (Keflex) 250 mg PO BID [facility]; Protocol Stop: 02/22/19 20:59 Last Admin: 02/19/19 09:22 Dose: 250 mg Documented by: Dextrose (Dextrose 50%) 25 - 50 ml IV UD PRN; Protocol PRN Reason: Hypoglycemia Protocol Stop: 03/11/19 18:35 Doxycycline Hyclate (Vibramycin) 100 mg PO BID [facility]; Protocol Stop: 02/22/19 20:59 Last Admin: 02/19/19 09:22 Dose: 100 mg Documented by: [facility]ram [facility] ([facility]) [facility] Stop: 03/17/19 11:44 Last Admin: 02/19/19 09:22 Dose: 10 mg Documented by: Glucagon (Glucagen) 1 mg SQ UD PRN; Protocol PRN Reason: Hypoglycemia Protocol Stop: 03/11/19 18:35 Glucose (Glucose 40%) 15 - 30 gm PO UD PRN; Protocol PRN Reason: Hypoglycemia Protocol Stop: 03/11/19 18:35 Glucose (Dex4 Glucose) 4 - 8 tabs PO UD PRN; Protocol PRN Reason: Hypoglycemia Protocol Stop: 03/11/19 18:35 Heparin Sodium (Porcine) (Heparin Sodium (Porcine)) 5,000 units SQ Q12 [facility] Stop: 03/13/19 11:59 Last Admin: 02/19/19 09:23 Dose: 5,000 units Documented by: Furosemide 60 mg/ Syringe 6 mls @ 4 mls/min IV DAILY@0600,1200,1800 [facility] Stop: 03/14/19 13:14 Last Admin: 02/19/19 12:18 Dose: 4 mls/min Documented by: Insulin Aspart (Novolog Flexpen) 0 units SC ACHS [facility] Stop: 03/11/19 20:59 Last Admin: 02/19/19 09:25 Dose: 10 units Documented by: Insulin Glargine (Lantus Solostar Pen) 10 units SC Q12H [facility] Stop: 03/11/19 20:59 Last Admin: 02/19/19 09:23 Dose: 10 units Documented by: Lovastatin (Mevacor) 80 mg PO PM [facility] Stop: 03/19/19 20:59 Last Admin: 02/18/19 21:30 Dose: 80 mg Documented by: Metoprolol Succinate (Toprol Xl) 50 mg PO DAILY [facility] Stop: 03/11/19 18:35 Last Admin: 02/19/19 09:22 Dose: 50 mg Documented by: Miscellaneous (Carbohydrates For Hypoglycemia) 15 - 30 gm PO UD PRN PRN Reason: Hypoglycemia Treatment Stop: 03/11/19 18:35 Multi-Ingredient Cream (Hydrocerin) 1 appln EXT BID [facility] Stop: 03/18/19 10:14 Last Admin: 02/19/19 09:28 Dose: 1 appln Documented by: Polyethylene Glycol (Miralax Powder Packet) 17 gm PO DAILY PRN PRN Reason: Constipation Stop: 03/11/19 18:35 Potassium Chloride (Klor-Con M20) 20 meq PO BID [facility] Stop: 03/19/19 20:59 Last Admin: 02/19/19 09:22 Dose: 20 meq Documented by: Warfarin Sodium (Coumadin) 6 mg PO DAILY@1600 [facility] Stop: 03/16/19 15:59 Last Admin: 02/18/19 15:47 Dose: 6 mg Documented by: (1) CHF (congestive heart failure) Heart failure type: diastolic Heart failure chronicity: acute on chronic Qualified Code(s): I50.33 - Acute on chronic diastolic (congestive) heart failure
[2019-02-19] MEDS: WARFARIN SOD 6 MG TAB PO SCH (16:32)
[2019-02-19] MEDS: LOVASTATIN 20 MG TAB PO SCH (20:14)
[2019-02-20] MEDS: FUROSEMIDE 60 MG in SYRINGE 0 ML IV SCH ×3 (06:28→17:10)
[2019-02-20] MEDS: ASPIRIN 81 MG ECTAB PO SCH (07:46)
[2019-02-20] MEDS: cephALEXin 250 MG CAP PO SCH ×2 (07:46→20:29)
[2019-02-20] MEDS: DOXYCYCLINE HYCLATE 100 MG CAP PO SCH ×2 (07:46→20:32)
[2019-02-20] MEDS: ESCITALOPRAM OXALATE 10 MG TAB PO SCH (07:47)
[2019-02-20] MEDS: METOPROLOL SUCC 50MG EXT REL TAB PO SCH (07:47)
[2019-02-20] MEDS: EUCERIN CR 120 GM JAR EXT SCH ×2 (07:47→20:29)
[2019-02-20] MEDS: POTASSIUM CHLORIDE 20 MEQ TABCR PO SCH ×2 (07:47→20:30)
[2019-02-20 09:13] LABS: BUN Creatinine Ratio 16.8 (10-20); Calcium 8.8 mg/dl (8.5-10.1); Creatinine Clr Calc Pharmacy 26.5 ml/min; Est GFR (African American) 22.6; Est GFR (Non-African American) 19.5; Potassium 3.8 mmol/L (3.5-5.1)
[2019-02-20] MEDS: INSULIN ASPART 100 UNITS/ML 3 ML PEN SC SCH ×4 (10:24→20:33)
[2019-02-20] MEDS: HEPARIN SOD 5,000 UNIT/0.5 ML VIAL SQ SCH ×2 (10:24→20:27)
[2019-02-20] MEDS: INSULIN GLARGINE SOLOSTAR 100 UNITS/ML 3 ML PEN SC SCH ×2 (10:25→20:30)
--- NOTE | 2019-02-20 13:03 | Hospitalist Progress Note ---
Date of Service February 20, 2019 Assessment & Plan (1) CHF (congestive heart failure): Acute on chronic diastolic CHF exacerbation Did not take his medications since last 3 days ECHO: Grade III diastolic dysfunciton Continue IV Lasix per Nephrology Daily weight, I/Os, fluid restriction Low sodium diet Appreciate Cardiology Input and recommendation We will get PT and OT evaluation Will need short-term rehab Stable cardiac gutierrez We will continue home dose of Lasix as an outpatient Encephalopathy-resolved Acute delirium CT head: No acute changes Normal Ammonia level ABG:Mild Hypercarbia Avoid narcotics and benzodiazepines Appreciate neurology Input No more delirium Afib RVR: Diagnosed in Nov 2018 Rate controlled Continue metoprolol Monitor INR1.7 on 02/16 INR is 1.9 today that is 02/19 Left Lower Lobe Pneumonia-POA CXR:asymmetric density at the left lung base noted Procalcitonin trending down Continue Abx Blood Cultures:No growth to date We will finish the course of antibiotic Antibiotic and changed to doxycycline and Keflex-we will continue another 4 days No signs of infection B/L LE cellulitis: Normal Lactate levels Venous Doppler:There is no sonographic evidence of deep venous thrombosis identified in the right lower extremity. Ankle X ray:No acute fracture or evidence of osteomyelitis. Moderate soft tissue swelling. Foot X ray:No acute fractures. Dorsal soft tissue swelling No destructive lesions are visualized Continue Daptomycin and Zosyn Day#7 Wound Cultures:Group G beta Strep, Staph Appreciate Wound Care Has been on p.o. antibiotic BRANDEE on CKD IV: Likely ATN Hold Lisinopril, Statin Avoid NSAIDs Baseline Cr:2.5 in Nov 2018 Renal USD:The kidneys demonstrate mild cortical atrophy and are without hydronephrosis. Avoid nephro toxic agents Appreciate Nephrology Input and recommendation Creatinine is getting better gradually Kidney function has improved a lot DM II hold oral diabetic meds Last A1c:7.1 in Nov 2018 ISS, basal Insulin, Accu checks, Diabetic diet Updated A1C:7.7 Dyslipidemia Hold Statin for now while on Dapto Mechanical Fall: PT/OT Fall precuations CARLOS ALBERTO Not on CPAP Depression Will start Lexapro 10 mg daily Tobacco use disorder Refuses Nicotine Patch DVT Px: Coumadin INR-1. 9 today on 02/19 Code Status DNI/DNR Disposition: PT/OT [employer] consulted for discharge planning Discussed with the and the daughter Awaiting placement Subjective The patient was seen and examined in medical telemetry He is a 78-year-old male with history of DM II, CHF, CKD IV, atrial fibrillation, dyslipidemia, CARLOS ALBERTO, tobacco use disorder, hypertension and other problems presents with history of worsening bilateral leg swelling and pain since 1 week duration. Lying in bed comfortably Looks depressed and anxious awaiting to be seen by the family members He was crying in presence of the covering his face Denies any discomfort 02/16 The patient was seen and examined in presence of the daughter and the He has been less confused today and denies any significant symptoms Physical therapy recommended rehab but the patient wants to go home Likely to be discharged tomorrow 02/17 The patient was seen and examined the medical floor He remains stable and wants to go home He does not have any more depressive symptoms 02/18 He remains stable and wants to go home Has been waiting for rehab placement He denies any symptoms today 02/19 He remains stable without any symptoms whatsoever He wants to go home He was told that he has been waiting to go for a short-term rehab 02/20 The patient was seen and examined the medical floor He has been out of bed on a chair He denies any symptoms today He has been getting physical therapy will need placement Physical Exam Vital Signs (Past 24 Hours): Last Vital Signs Temp 36.6 C 02/20/19 11:38 Pulse 82 02/20/19 11:38 Resp 18 02/20/19 11:38 BP 140/65 02/20/19 11:38 Pulse Ox 95 02/20/19 11:38 Physical Exam: No apparent distress at rest Constitutional: well developed, well nourished and + obese Eyes: EOM intact bilaterally ENMT: Mouth: + dry oral mucous membranes Neck: no nuchal rigidity Respiratory: normal respiratory effort Auscultation: + diminished lung sounds and + crackles (Minimal bibasilar crackles) Cardiovascular: Rate/Rhythm: regular rate and regular rhythm Extremities: + edema (1+ edema bilaterally with chronic ischemic changes but no open wounds) Gastrointestinal (Abdomen): Inspection/Auscultation: normal bowel sounds Percussion/Palpation: abdomen soft; abdomen nontender Skin: + lesion (BLE w/ blisters, excoriations), + skin tightening and + erythema (worse R foot than L) Psychiatric: Orientation: oriented to person, oriented to place, oriented to time and cooperative (but lethargic) Speech: normal rate/rhythm/volume of speech Insight: + limited insight Judgement: + limited judgement Results & Data Laboratory Results [facility] 02/20/19 08:23 Sodium 141 Potassium 3.8 Chloride 98 Carbon Dioxide 39 H BUN 50 H Creatinine 2.94 H Glucose 135 H Calcium 8.8 Medications Administered Current Inpatient Medications Acetaminophen (Tylenol) 650 mg PO Q4H PRN PRN Reason: Pain or Fever Stop: 03/11/19 18:35 Last Admin: 02/13/19 06:39 Dose: 650 mg Documented by: Aspirin (Ecotrin Ectab) 81 mg PO QAM [facility] Stop: 03/12/19 08:59 Last Admin: 02/20/19 07:46 Dose: 81 mg Documented by: Cephalexin HCl (Keflex) 250 mg PO BID [facility]; Protocol Stop: 02/22/19 20:59 Last Admin: 02/20/19 07:46 Dose: 250 mg Documented by: Dextrose (Dextrose 50%) 25 - 50 ml IV UD PRN; Protocol PRN Reason: Hypoglycemia Protocol Stop: 03/11/19 18:35 Doxycycline Hyclate (Vibramycin) 100 mg PO BID [facility]; Protocol Stop: 02/22/19 20:59 Last Admin: 02/20/19 07:46 Dose: 100 mg Documented by: Escitalopram Oxalate (Lexapro) 10 mg PO QAM [facility] Stop: 03/17/19 11:44 Last Admin: 02/20/19 07:47 Dose: 10 mg Documented by: Glucagon (Glucagen) 1 mg SQ UD PRN; Protocol PRN Reason: Hypoglycemia Protocol Stop: 03/11/19 18:35 Glucose (Glucose 40%) 15 - 30 gm PO UD PRN; Protocol PRN Reason: Hypoglycemia Protocol Stop: 03/11/19 18:35 Glucose (Dex4 Glucose) 4 - 8 tabs PO UD PRN; Protocol PRN Reason: Hypoglycemia Protocol Stop: 03/11/19 18:35 Heparin Sodium (Porcine) (Heparin Sodium (Porcine)) 5,000 units SQ Q12 [facility] Stop: 03/13/19 11:59 Last Admin: 02/20/19 10:24 Dose: 5,000 units Documented by: Furosemide 60 mg/ Syringe 6 mls @ 4 mls/min IV DAILY@0600,1200,1800 [facility] Stop: 03/14/19 13:14 Last Admin: 02/20/19 12:07 Dose: 4 mls/min Documented by: Insulin Aspart (Novolog Flexpen) 0 units SC ACHS [facility] Stop: 03/11/19 20:59 Last Admin: 02/20/19 12:05 Dose: 8 units Documented by: Insulin Glargine (Lantus Solostar Pen) 10 units SC Q12H [facility] Stop: 03/11/19 20:59 Last Admin: 02/20/19 10:25 Dose: 10 units Documented by: Lovastatin (Mevacor) 80 mg PO PM [facility] Stop: 03/19/19 20:59 Last Admin: 02/19/19 20:14 Dose: 80 mg Documented by: Metoprolol Succinate (Toprol Xl) 50 mg PO DAILY [facility] Stop: 03/11/19 18:35 Last Admin: 02/20/19 07:47 Dose: 50 mg Documented by: Miscellaneous (Carbohydrates For Hypoglycemia) 15 - 30 gm PO UD PRN PRN Reason: Hypoglycemia Treatment Stop: 03/11/19 18:35 Multi-Ingredient Cream (Hydrocerin) 1 appln EXT BID [facility] Stop: 03/18/19 10:14 Last Admin: 02/20/19 07:47 Dose: 1 appln Documented by: Polyethylene Glycol (Miralax Powder Packet) 17 gm PO DAILY PRN PRN Reason: Constipation Stop: 03/11/19 18:35 Potassium Chloride (Klor-Con M20) 20 meq PO BID [facility] Stop: 03/19/19 20:59 Last Admin: 02/20/19 07:47 Dose: 20 meq Documented by: Warfarin Sodium (Coumadin) 6 mg PO DAILY@1600 [facility] Stop: 03/16/19 15:59 Last Admin: 02/19/19 16:32 Dose: 6 mg Documented by: (1) CHF (congestive heart failure) Heart failure type: diastolic Heart failure chronicity: acute on chronic Qualified Code(s): I50.33 - Acute on chronic diastolic (congestive) heart failure
[2019-02-20] MEDS: WARFARIN SOD 6 MG TAB PO SCH (15:30)
--- NOTE | 2019-02-20 17:29 | Nephrology Progress Note ---
Date of Service February 20, 2019 Assessment & Plan (1) BRANDEE (acute kidney injury): FURTHER IMPROVING Baseline creatinine [id number] in low 2's w/ one reading in past 10 mos at 2.5 on 12/29, presented 02/09 w/ creat 3.6; worse w/ diuresis to peak at 4.6; trending down now to 2.9 today. hx nephrotic range proteinuria in past AK I likely due to ischemic ATN in setting of infection. -Volume status is improved. Recommend changing to Lasix 80 mg p.o. twice daily from tomorrow -cont to hold ACEI - cont daily bmp -f/u pending spep, upep; (2) CKD (chronic kidney disease) stage 4, GFR 15-29 ml/min: Baseline creatinine had been mid 2's; hx of nephrotic range proteinuria; presented w/ elements of nephrotic syndrome; advanced CKD from DM, HTN, obesity, macro/microvascular disease -pls be sure at d/c he goes out on ASA 81 and not 325 mg daily -needs OP CKD clinic f/u; >BL adrenal nodules noted on CT > doubt role for this in htn; 3.4 cm R adrenal nodule should likely have f/u imaging to ensure not growing in 6-12 mos (3) Volume overload: improving slightly. we have little baseline data on his OP weight: looks like was about 118kg in 2017; then in 2018 has 110 kg one time reading; then 2019 has been about 125 kg. -follow daily standing wts - first standing one is 115.3 on 02/11; large gain on wts today/yesterday -- following wts next few days -will transition to p.o. Lasix 80 mg twice daily and monitor input output. -add spironolactone when appropriate for HF; not likely this admission Subjective Patient seen in follow-up for acute kidney injury on CKD. He reports improvement, denies any shortness of breath. Edema of the legs has subsided. Creatinine is downtrending. Patient is eager to be discharged. Constitutional: + fatigue, + weakness and + weight gain Respiratory: + dyspnea on exertion; no cough and no dyspnea Cardiovascular: + dyspnea on exertion and + edema; no chest pain and no palpitations Integumentary: as per Subjective / HPI, + lesions, + non-healing lesions and + bleeding lesions Neurologic: + generalized weakness Endocrine: + fatigue Physical Exam Vital Signs (Past 24 Hours): Last Vital Signs Temp 36.7 C 02/20/19 15:02 Pulse 75 02/20/19 15:43 Resp 16 02/20/19 15:02 BP 121/53 L 02/20/19 15:02 Pulse Ox 93 02/20/19 15:02 Physical Exam: General exam: Appears comfortable, no acute distress HEENT: Pupils are equal and reactive to light Neck: No JVD, neck is supple trachea is midline Respiratory system: Clear breath sounds bilaterally. Gastrointestinal: Abdomen is soft, non distended, non tender, bowel sounds are present CVS: Regular rate and rhythm. No murmurs, rubs or gallops Musculoskeletal: No joint or muscle tenderness Extremities: Non tender, no edema, peripheral pulses are present Neuro: Oriented, no tremors, no focal neurological deficits Skin: No rashes Results & Data Laboratory Results Labs reviewed
[2019-02-20] MEDS: LOVASTATIN 20 MG TAB PO SCH (20:31)
[2019-02-21] MEDS: FUROSEMIDE 60 MG in SYRINGE 0 ML IV SCH (06:26)
[2019-02-21] MEDS: ASPIRIN 81 MG ECTAB PO SCH (08:16)
[2019-02-21] MEDS: cephALEXin 250 MG CAP PO SCH (08:17)
[2019-02-21] MEDS: EUCERIN CR 120 GM JAR EXT SCH (08:17)
[2019-02-21] MEDS: HEPARIN SOD 5,000 UNIT/0.5 ML VIAL SQ SCH (08:17)
[2019-02-21] MEDS: INSULIN GLARGINE SOLOSTAR 100 UNITS/ML 3 ML PEN SC SCH (08:18)
[2019-02-21] MEDS: ESCITALOPRAM OXALATE 10 MG TAB PO SCH (08:18)
[2019-02-21] MEDS: POTASSIUM CHLORIDE 20 MEQ TABCR PO SCH (08:18)
[2019-02-21] MEDS: INSULIN ASPART 100 UNITS/ML 3 ML PEN SC SCH ×2 (08:19→13:19)
[2019-02-21] MEDS: DOXYCYCLINE HYCLATE 100 MG CAP PO SCH (08:19)
[2019-02-21] MEDS: METOPROLOL SUCC 50MG EXT REL TAB PO SCH (08:19)
--- NOTE | 2019-02-21 10:14 | Nephrology Progress Note ---
Date of Service February 21, 2019 Assessment & Plan (1) BRANDEE (acute kidney injury): FURTHER IMPROVING Baseline creatinine [id number] in low 2's w/ one reading in past 10 mos at 2.5 on 12/29, presented 02/09 w/ creat 3.6; worse w/ diuresis to peak at 4.6; trending down now to 2.9. hx nephrotic range proteinuria in past AK I likely due to ischemic ATN in setting of infection. -Volume status is improved. Recommend changing to Lasix 80 mg p.o. twice daily. Can be discharged on same dose and outpatient BMP on WEDNESDAY -cont to hold ACEI -f/u pending spep, upep; (2) CKD (chronic kidney disease) stage 4, GFR 15-29 ml/min: Baseline creatinine had been mid 2's; hx of nephrotic range proteinuria; presented w/ elements of nephrotic syndrome; advanced CKD from DM, HTN, obesity, macro/microvascular disease -pls be sure at d/c he goes out on ASA 81 and not 325 mg daily -needs OP CKD clinic f/u; >BL adrenal nodules noted on CT > doubt role for this in htn; 3.4 cm R adrenal nodule should likely have f/u imaging to ensure not growing in 6-12 mos (3) Volume overload: improving slightly. we have little baseline data on his OP weight: looks like was about 118kg in 2017; then in 2018 has 110 kg one time reading; then 2019 has been about 125 kg. -follow daily standing wts - first standing one is 115.3 on 02/11;- following wts next few days -Changed to p.o. Lasix 80 mg twice daily and monitor input output. -add spironolactone when appropriate for HF; not likely this admission Subjective Patient seen in follow-up for acute kidney injury on CKD. He reports i mprovement, denies any shortness of breath. Edema of the legs has subsided. He is responding well to diuretics with net -1.9 L yesterday. Patient is eager to be discharged. Review of Systems All systems reviewed & are unremarkable except as noted in HPI & below Physical Exam Vital Signs (Past 24 Hours): Last Vital Signs Temp 36.8 C 02/21/19 07:27 Pulse 82 02/21/19 07:27 Resp 18 03/26/19 07:27 BP 137/76 02/21/19 07:27 Pulse Ox 96 02/21/19 07:27 Physical Exam: General exam: Appears comfortable, no acute distress. Still using oxygen 2 L nasal cannula HEENT: Pupils are equal and reactive to light Neck: No JVD, neck is supple trachea is midline Respiratory system: Reduced breath sounds in the bases bilaterally. Gastrointestinal: Abdomen is soft, non distended, non tender, bowel sounds are present CVS: Regular rate and rhythm. No murmurs, rubs or gallops Musculoskeletal: No joint or muscle tenderness Extremities: Non tender, no edema, peripheral pulses are present Neuro: Oriented, no tremors, no focal neurological deficits Skin: No rashes Results & Data Laboratory Results reviewed
[2019-02-21 11:35] VITALS: PULSE 75; TEMP 97.5; O2SAT 98
--- NOTE | 2019-02-21 13:05 | Hospitalist Progress Note ---
Date of Service February 21, 2019 Assessment & Plan (1) CHF (congestive heart failure): Acute on chronic diastolic CHF exacerbation Did not take his medications since last 3 days ECHO: Grade III diastolic dysfunciton Continue IV Lasix per Nephrology Daily weight, I/Os, fluid restriction Low sodium diet Appreciate Cardiology Input and recommendation We will get PT and OT evaluation Will need short-term rehab We will continue home dose of Lasix as an outpatient Remains stable to be discharged Encephalopathy-resolved Acute delirium CT head: No acute changes Normal Ammonia level ABG:Mild Hypercarbia Avoid narcotics and benzodiazepines Appreciate neurology Input No more delirium Afib RVR: Diagnosed in Nov 2018 Rate controlled Continue metoprolol Monitor INR1.7 on 02/16 INR is 1.9 today that is 02/19 Left Lower Lobe Pneumonia-POA CXR:asymmetric density at the left lung base noted Procalcitonin trending down Continue Abx Blood Cultures:No growth to date We will finish the course of antibiotic Antibiotic and changed to doxycycline and Keflex-we will continue another 4 days No signs of infection Antibiotic course is finished B/L LE cellulitis: Normal Lactate levels Venous Doppler:There is no sonographic evidence of deep venous thrombosis identified in the right lower extremity. Ankle X ray:No acute fracture or evidence of osteomyelitis. Moderate soft tissue swelling. Foot X ray:No acute fractures. Dorsal soft tissue swelling No destructive lesions are visualized Continue Daptomycin and Zosyn Day#7 Wound Cultures:Group G beta Strep, Staph Appreciate Wound Care Has been on p.o. antibiotic BRANDEE on CKD IV: Likely ATN Hold Lisinopril, Statin Avoid NSAIDs Baseline Cr:2.5 in Nov 2018 Renal USD:The kidneys demonstrate mild cortical atrophy and are without hydronephrosis. Avoid nephro toxic agents Appreciate Nephrology Input and recommendation Creatinine is getting better gradually Kidney function has improved a lot DM II hold oral diabetic meds Last A1c:7.1 in Nov 2018 ISS, basal Insulin, Accu checks, Diabetic diet Updated A1C:7.7 Dyslipidemia Hold Statin for now while on Dapto Mechanical Fall: PT/OT Fall precuations CARLOS ALBERTO Not on CPAP Depression Will start Lexapro 10 mg daily Tobacco use disorder Refuses Nicotine Patch DVT Px: Coumadin INR-1. 9 today on 02/19 Code Status DNI/DNR Disposition: PT/OT [employer] consulted for discharge planning Discussed with the and the daughter Awaiting placement-he will be transferred to [facility] this afternoon Subjective The patient was seen and examined in medical telemetry He is a 78-year-old male with history of DM II, CHF, CKD IV, atrial fibrillation, dyslipidemia, CARLOS ALBERTO, tobacco use disorder, hypertension and other problems presents with history of worsening bilateral leg swelling and pain since 1 week duration. Lying in bed comfortably Looks depressed and anxious awaiting to be seen by the family members He was crying in presence of the covering his face Denies any discomfort 02/16 The patient was seen and examined in presence of the daughter and the He has been less confused today and denies any significant symptoms Physical therapy recommended rehab but the patient wants to go home Likely to be discharged tomorrow 02/17 The patient was seen and examined the medical floor He remains stable and wants to go home He does not have any more depressive symptoms 02/18 He remains stable and wants to go home Has been waiting for rehab placement He denies any symptoms today 02/19 He remains stable without any symptoms whatsoever He wants to go home He was told that he has been waiting to go for a short-term rehab 02/20 The patient was seen and examined the medical floor He has been out of bed on a chair He denies any symptoms today He has been getting physical therapy will need placement 02/21 The patient was seen and examined in medical floor He has been stable for the last few days He does not want to go to rehab Denies any symptoms Physical Exam Vital Signs (Past 24 Hours): Last Vital Signs Temp 36.4 C L 02/21/19 11:35 Pulse 75 02/21/19 11:35 Resp 18 02/21/19 11:35 BP 139/67 02/21/19 11:35 Pulse Ox 98 02/21/19 11:35 Physical Exam: No apparent distress at rest Constitutional: well developed, well nourished and + obese Eyes: EOM intact bilaterally ENMT: Mouth: + dry oral mucous membranes Neck: no nuchal rigidity Respiratory: normal respiratory effort Auscultation: + diminished lung sounds and + crackles (Minimal bibasilar crackles) Cardiovascular: Rate/Rhythm: regular rate and regular rhythm Extremities: + edema (1+ edema bilaterally with chronic ischemic changes but no open wounds) Gastrointestinal (Abdomen): Inspection/Auscultation: normal bowel sounds Percussion/Palpation: abdomen soft; abdomen nontender Skin: + lesion (BLE w/ blisters, excoriations), + skin tightening and + erythema (worse R foot than L) Psychiatric: Orientation: oriented to person, oriented to place, oriented to time and cooperative (but lethargic) Speech: normal rate/rhythm/volume of speech Insight: + limited insight Judgement: + limited judgement Results & Data Medications Administered Current Inpatient Medications Acetaminophen (Tylenol) 650 mg PO Q4H PRN PRN Reason: Pain or Fever Stop: 03/11/19 18:35 Last Admin: 02/13/19 06:39 Dose: 650 mg Documented by: Aspirin (Ecotrin Ectab) 81 mg PO QAM [facility] Stop: 03/12/19 08:59 Last Admin: 02/21/19 08:16 Dose: 81 mg Documented by: Cephalexin HCl (Keflex) 250 mg PO BID [facility]; Protocol Stop: 02/22/19 20:59 Last Admin: 02/21/19 08:17 Dose: 250 mg Documented by: Dextrose (Dextrose 50%) 25 - 50 ml IV UD PRN; Protocol PRN Reason: Hypoglycemia Protocol Stop: 03/11/19 18:35 Doxycycline Hyclate (Vibramycin) 100 mg PO BID [facility]; Protocol Stop: 02/22/19 20:59 Last Admin: 02/21/19 08:19 Dose: 100 mg Documented by: Escitalopram Oxalate (Lexapro) 10 mg PO QAM [facility] Stop: 03/17/19 11:44 Last Admin: 02/21/19 08:18 Dose: 10 mg Documented by: Furosemide (Lasix) 80 mg PO BID17 [facility] Stop: 03/23/19 16:59 Glucagon (Glucagen) 1 mg SQ UD PRN; Protocol PRN Reason: Hypoglycemia Protocol Stop: 03/11/19 18:35 Glucose (Glucose 40%) 15 - 30 gm PO UD PRN; Protocol PRN Reason: Hypoglycemia Protocol Stop: 03/11/19 18:35 Glucose (Dex4 Glucose) 4 - 8 tabs PO UD PRN; Protocol PRN Reason: Hypoglycemia Protocol Stop: 03/11/19 18:35 Heparin Sodium (Porcine) (Heparin Sodium (Porcine)) 5,000 units SQ Q12 [facility] Stop: 03/13/19 11:59 Last Admin: 02/21/19 08:17 Dose: 5,000 units Documented by: Insulin Aspart (Novolog Flexpen) 0 units SC ACHS [facility] Stop: 03/11/19 20:59 Last Admin: 02/21/19 08:19 Dose: 5 units Documented by: Insulin Glargine (Lantus Solostar Pen) 10 units SC Q12H [facility] Stop: 03/11/19 20:59 Last Admin: 02/21/19 08:18 Dose: 10 units Documented by: Lovastatin (Mevacor) 80 mg PO PM [facility] Stop: 03/19/19 20:59 Last Admin: 02/20/19 20:31 Dose: 80 mg Documented by: Metoprolol Succinate (Toprol Xl) 50 mg PO DAILY [facility] Stop: 03/11/19 18:35 Last Admin: 02/21/19 08:19 Dose: 50 mg Documented by: Miscellaneous (Carbohydrates For Hypoglycemia) 15 - 30 gm PO UD PRN PRN Reason: Hypoglycemia Treatment Stop: 03/11/19 18:35 Multi-Ingredient Cream (Hydrocerin) 1 appln EXT BID [facility] Stop: 03/18/19 10:14 Last Admin: 02/21/19 08:17 Dose: 1 appln Documented by: Polyethylene Glycol (Miralax Powder Packet) 17 gm PO DAILY PRN PRN Reason: Constipation Stop: 03/11/19 18:35 Potassium Chloride (Klor-Con M20) 20 meq PO BID [facility] Stop: 03/19/19 20:59 Last Admin: 02/21/19 08:18 Dose: 20 meq Documented by: Warfarin Sodium (Coumadin) 6 mg PO DAILY@1600 [facility] Stop: 03/16/19 15:59 Last Admin: 02/20/19 15:30 Dose: 6 mg Documented by: (1) CHF (congestive heart failure) Heart failure type: diastolic Heart failure chronicity: acute on chronic Qualified Code(s): I50.33 - Acute on chronic diastolic (congestive) heart failure
[2019-02-21 13:58] VITALS: BP 137/76
[2019-02-21] MEDS ORDERED: FUROSEMIDE 80 MG TAB PO SCH (17:00)
--- NOTE | 2019-02-22 08:45 | Discharge Summary ---
Date of Service February 22, 2019 Admission HPI Per Admitting Provider Patient is a 78-year-old male with history of DM II, CHF, CKD IV, atrial fibrillation, dyslipidemia, CARLOS ALBERTO, tobacco use disorder, hypertension and other problems presents with history of worsening bilateral leg swelling and pain since 1 week duration. Patient is a poor historian. He states having bilateral leg swelling with erythema which has been progressively worsening. Denies any history of trauma, insect bite. "My dog scratches my legs on and off". Patient was noted to be noncompliant with office visits as per outpatient documentation. He complains of leg pain which is 9/10 intensity, sharp to dull, associated with difficulty with ambulation and generalized weakness. He also noted some clear discharge from small wounds on his legs. He reports history of fall yesterday denies any history of syncope, head trauma. He has been having dry cough since last few weeks. He states having palpitations intermittently and admits to not taking his medications since last 3 days. He states have dyspnea on exertion only. Denies any history of chest pain, SOB at rest, orthopnea, PND, weight change, dizziness, hemoptysis, fever, chills, headache, change in vision, nausea, vomiting, abdominal pain, diarrhea, dysuria, recent change in medications. Admission Exam Per Admitting Provider Vital Signs (Past 24 Hours): Last Vital Signs Temp 36.6 C 02/09/19 13:23 Pulse 107 H 02/09/19 15:40 Resp 17 02/09/19 15:40 BP 102/59 L 02/09/19 15:40 Pulse Ox 98 02/09/19 14:46 Physical Exam: Physical Exam: Vitals signs as noted above General Appearance:Obese, no apparent distress Head: normocephalic, Atraumatic Eyes: normal inspection, EOMI Neck: supple, Trachea midline Respiratory/Chest: Decreased breath sounds, Scattered rales, wheezes Cardiovascular: Irregularly Irregular, No murmur, +Tachycardia Abdomen/GI:Soft, Non tender, Bowel sounds present Extremities/Musculoskelatal:normal inspection, B/L LE swelling, erythema, small open wounds Neurologic/Psych:AAOX3, grossly no focal neurological deficits Skin: normal color, warm Principal Diagnosis Bilateral leg cellulitis, acute on chronic diastolic heart failure, atrial fibrillation Discharge Exam Constitutional well developed, well nourished and + obese Eyes EOM intact bilaterally ENMT Mouth: + dry oral mucous membranes Neck no nuchal rigidity Respiratory normal respiratory effort Auscultation: + diminished lung sounds and + crackles (Minimal bibasilar crackles) Cardiovascular Rate/Rhythm: regular rate and regular rhythm Extremities: + edema (1+ edema bilaterally with chronic ischemic changes but no open wounds) Gastrointestinal (Abdomen) Inspection/Auscultation: normal bowel sounds Percussion/Palpation: abdomen soft; abdomen nontender Skin + lesion (BLE w/ blisters, excoriations), + skin tightening and + erythema (worse R foot than L) Psychiatric Orientation: oriented to person, oriented to place, oriented to time and cooperative (but lethargic) Speech: normal rate/rhythm/volume of speech Insight: + limited insight Judgement: + limited judgement Discharge Data Allergies Allergy/AdvReac Type Severity Reaction Status Date / Time codeine AdvReac Intermediate NAUSEA Verified 02/09/19 14:25 Consultations 02/09/19 16:20 ED Decision to Admit Stat 02/09/19 18:36 Consult Case Management - Discharge Planning Routine Consult Nephrology Routine 02/10/19 08:00 Consult Cardiology Routine 02/12/19 09:55 Consult Neurology Routine Ordered Studies 02/09/19 15:54 US venous doppler LE RT Stat 02/11/19 US renal/blad retro comp Routine 02/12/19 09:54 CT head/brain wo con Routine 02/13/19 07:00 CT chest wo con Routine Hospital Course (1) CHF (congestive heart failure): Acute on chronic diastolic CHF exacerbation Did not take his medications since last 3 days ECHO: Grade III diastolic dysfunciton Continue IV Lasix per Nephrology Daily weight, I/Os, fluid restriction Low sodium diet Appreciate Cardiology Input and recommendation We will get PT and OT evaluation Will need short-term rehab We will continue home dose of Lasix as an outpatient Remains stable to be discharged Encephalopathy-resolved Acute delirium CT head: No acute changes Normal Ammonia level ABG:Mild Hypercarbia Avoid narcotics and benzodiazepines Appreciate neurology Input No more delirium Afib RVR: Diagnosed in Nov 2018 Rate controlled Continue metoprolol Monitor INR1.7 on 02/16 INR is 1.9 today that is 02/19 Left Lower Lobe Pneumonia-POA CXR:asymmetric density at the left lung base noted Procalcitonin trending down Continue Abx Blood Cultures:No growth to date We will finish the course of antibiotic Antibiotic and changed to doxycycline and Keflex-we will continue another 4 days No signs of infection Antibiotic course is finished B/L LE cellulitis: Normal Lactate levels Venous Doppler:There is no sonographic evidence of deep venous thrombosis identified in the right lower extremity. Ankle X ray:No acute fracture or evidence of osteomyelitis. Moderate soft tissue swelling. Foot X ray:No acute fractures. Dorsal soft tissue swelling No destructive lesions are visualized Continue Daptomycin and Zosyn Day#7 Wound Cultures:Group G beta Strep, Staph Appreciate Wound Care Has been on p.o. antibiotic BRANDEE on CKD IV: Likely ATN Hold Lisinopril, Statin Avoid NSAIDs Baseline Cr:2.5 in Nov 2018 Renal USD:The kidneys demonstrate mild cortical atrophy and are without hydronephrosis. Avoid nephro toxic agents Appreciate Nephrology Input and recommendation Creatinine is getting better gradually Kidney function has improved a lot DM II hold oral diabetic meds Last A1c:7.1 in Nov 2018 ISS, basal Insulin, Accu checks, Diabetic diet Updated A1C:7.7 Dyslipidemia Hold Statin for now while on Dapto Mechanical Fall: PT/OT Fall precuations CARLOS ALBERTO Not on CPAP Depression Will start Lexapro 10 mg daily Tobacco use disorder Refuses Nicotine Patch DVT Px: Coumadin INR-1. 9 today on 02/19 Code Status DNI/DNR Disposition: PT/OT Gift Shop Clerk consulted for discharge planning Discussed with the and the daughter Awaiting placement-he will be transferred to [facility] this afternoon Total Time Total Time Spent Total Time Spent (In Minutes): 35 minutes Total Time Includes: Examination of the Patient, Discharge Planning, Medication Reconciliation and Communication With Other Providers Discharge Plan Discharge Items Patient Disposition: Transfer [facility] Reason For Visit: LEG CELLULITIS Discharge Diagnosis: Bilateral leg cellulitis, acute on chronic diastolic heart failure, atrial fibrillation Condition: Fair Discharge Goals: Decrease discomfort Activity: Resume your previous activity Non-emergency contact: Primary Care Provider Call non-emergency contact if: you have any medication questions and your symptoms worsen Follow-up/Referrals: Aden Colon [Primary Care Provider] - (Please make an appointment with your primary care physician within 7 days following discharge from [facility]) Diet: Heart Healthy Fluids: 1500ml (6 cups) Addtl Provider Instructions: Please take precaution to avoid falls Call 911 and go to the Emergency Room if: * You have tightness or pain in your chest that does not go away with rest or Nitroglycerin * You are very short of breath even with rest Call your doctor if any of the following symptoms or problems start or get worse: * Shortness of breath or difficulty breathing * Wake up at night short of breath * Chest pain * Cough * Swelling of your hands, fee, or legs * More fatigued or tired with your normal activity * Palpitations - sudden fast heart beats WEIGHT * Weigh yourself every morning after using the bathroom. * Use the same scale. * Wear the same amount of clothing. * Write your weight down on your chart. * Call your doctor if you gain more than 2-3 pounds in 1-2 days. MEDICATIONS * Use this discharge instruction sheet for instructions. * Take your medications at the time your doctor ordered. * Do not skip a dose of your medicines. * If you miss a dose of medicine, take as soon as possible, but DO NOT DOUBLE A DOSE. * Read your medicine information when you get home. * Know all of the side effects of your medicine. * Call your doctor's office if you have any side effects. * Be sure all of your doctors know what medicine and herbs you take (including cold, flu, and herbal medicine). * Pain Medicine: If you do not get relief from your pain, please call your doctor for help. Take the following with you to your follow-up doctor appointments: * Weight Chart * Medication List * List of questions Do not drink excessive alcohol, beer or wine. Prescriptions: New doxycycline hyclate 100 mg Capsule 100 mg PO BID 2 Days Qty: 4 RF: 0 cephalexin 250 mg Capsule 250 mg PO BID 2 Days Qty: 4 RF: 0 aspirin [Ecotrin Low Strength] 81 mg Tablet,Delayed Release (Dr/Ec) 81 mg PO QAM 30 Days Qty: 30 RF: 0 escitalopram oxalate 10 mg Tablet 10 mg PO QAM 30 Days Qty: 30 RF: 0 Continued metoprolol succinate [Toprol XL] 50 mg Tablet Extended Release 24 Hr 50 mg PO DAILY RF: 0 glipizide 10 mg Tablet 10 mg PO BID RF: 0 lovastatin 40 mg Tablet 80 mg PO HS RF: 0 warfarin 5 mg Tablet 5 mg PO DIRECTED RF: 0 furosemide 20 mg Tablet 40 mg PO BID RF: 0 Victoza 2-Fernando 0.6 mg/0.1 mL (18 mg/3 mL) Pen Injector 1.2 mg SUBCUT DAILY RF: 0 lisinopril 40 mg Tablet 40 mg PO DAILY RF: 0 potassium chloride 20 mEq Tablet Extended Release 20 meq PO DAILY RF: 0 cholecalciferol (vitamin D3) 2,000 unit Tablet 2,000 units PO DAILY RF: 0 Discontinued aspirin 325 mg Tablet 325 mg PO DAILY RF: 0 Stand-Alone Forms: [facility] Discharge Orders: Discharge Order (Routine); Ordered 02/21/19 Ordered By: Samuel Britton Skilled Items Patient informed of condition?: Yes DNR: Yes Discharge Level of Care: Skilled Communicable Disease: No Discharge Prognosis: Stable Admission Data Admit Date/Time: 02/09/19 17:29 Attending Provider: Samuel Britton Admit Provider: Mathew Johnson Primary Care Provider: Aden Colon Other Providers: Rohan Salazar ; Thais Calhoun ; Laci Moulton ; Jimmy Bledsoe ; Mathew Johnson Service: Telemetry Medical Other Interventions: Discharge Summary Assessment (RN) Last Done: 02/21/19 13:56 DC Date/Time DO NOT enter until pt leaves facility: 02/21/19 14:53
== END 2019-02-21 14:53 | DRG 291 ==
LOC: ED 13:12 → 2W 17:29 → SUATTDRO 17:29 → 2W 17:50

== ENCOUNTER 2019-09-15 01:45 | Inpatient (IN) ==
[2019-09-15 02:12] LABS: Basophils # (auto) 0.02 K/uL (0-0.2); Basophils % (auto) 0.2 %; Eosinophils # (auto) 0.05 K/uL (0-0.5); Eosinophils % (auto) 0.4 %; Hemoglobin 12.2 g/dL (14.0-18.0); Immature Granulocytes # (auto) 0.02 K/uL (0.00-0.02); Immature Granulocytes % (auto) 0.2 %; Lymphocytes # (auto) 0.87 K/uL (1.2-3.4); Lymphocytes % (auto) 7.7 %; Mean Corpuscular Hemoglobin 29.6 pg (25-34); Mean Corpuscular Hgb Conc 32.1 g/dL (32-36); Mean Corpuscular Volume 92.2 fL (80-100); Monocytes # (auto) 0.81 K/uL (0.11-0.59); Monocytes % (auto) 7.2 %; Neutrophils # (auto) 9.46 K/uL (1.4-6.5); Neutrophils % (auto) 84.3 %; Platelet Count 257 K/uL (130-400); RDW Standard Deviation 50.7 fL (36.4-46.3); Red Blood Count 4.12 M/uL (4.7-6.1); White Blood Count 11.23 K/uL (4.8-10.8)
[2019-09-15 02:28] LABS: Alanine Aminotransferase 26 U/L (12-78); Albumin Level 3.1 gm/dl (3.4-5.0); Aspartate Aminotransferase 16 U/L (15-37); BUN Creatinine Ratio 13.1 (10-20); Blood Urea Nitrogen 46 mg/dl (7-18); Calcium 8.7 mg/dl (8.5-10.1); Carbon Dioxide 31 mmol/L (21-32); Chloride 105 mmol/L (98-107); Creatinine Clr Calc Pharmacy 22.3 ml/min; Est GFR (Non-African American) 15.5; Glucose 141 mg/dl (70-99); INR 1.1 (0.9-1.1); Partial Thromboplastin Time 26.9 Seconds (21.0-31.0); Potassium 4.3 mmol/L (3.5-5.1); Prothrombin Time 10.8 Seconds (9.0-12.0); Sodium 140 mmol/L (136-145)
[2019-09-15 02:33] LABS: Albumin Globulin Ratio 0.7 (0.9-2); Alkaline Phosphatase 59 U/L (45-117); Bilirubin,Total 0.3 mg/dl (0.2-1); Globulin 4.3 gm/dl (2.5-4.0); Total Protein 7.4 gm/dl (6.4-8.2); Troponin I < 0.015 ng/ml (0-0.045)
[2019-09-15] MEDS ORDERED: methylPREDNISolone 125 MG/2 ML VIAL IV STA (03:28)
[2019-09-15] MEDS ORDERED: NITROGLYCERIN SL 0.4 MG/TAB TAB SL PRN (04:51)
[2019-09-15] MEDS ORDERED: IPRATROPIUM BROMIDE NEB SOLN 0.02% 2.5 ML VIAL INH PRN (04:51)
[2019-09-15] MEDS ORDERED: POLYETHYLENE (MIRALAX) 17 GM PACK PO PRN (04:51)
[2019-09-15] MEDS ORDERED: XOPENEX/ATROVENT 1.25mg/0.5MG NEB COMBO NEB PRN (04:51)
[2019-09-15] MEDS ORDERED: ACETAMINOPHEN 325 MG TAB PO PRN (04:51)
[2019-09-15] MEDS ORDERED: ONDANSETRON INJ 2 MG/ML 2 ML VIAL IV PRN (04:51)
[2019-09-15] MEDS ORDERED: LEVALBUTEROL 1.25MG/0.5ML NEB INH PRN (04:51)
--- NOTE | 2019-09-15 06:19 | History and Physical Report ---
DATE OF ADMISSION: 09/15/2019 CHIEF COMPLAINT: Shortness of breath. HISTORY OF PRESENT ILLNESS: A 79-year-old male with past medical history significant for chronic diastolic CHF, ongoing tobacco abuse, diabetes, hyperlipidemia, obstructive sleep apnea, not on CPAP, atrial fibrillation, not on Coumadin secondary to recent history of subdural hematoma, persistent proteinuria, hypertension, who presents with shortness of breath. The patient lives with his daughter. Yesterday, he went to family doctor because of shortness of breath and cough and prescribed azithromycin for bronchitis, but last night around 11:00 p.m., he woke up with shortness of breath, he was not feeling good, and EMS was called and was saturating only 70%.Currently on OxyMask 6 liters is saturating in mid 90s, resting comfortably. Daughter is in the room. Denies any chest pain. No fever, no chills, no headache, no dizziness, no blurred vision, no earaches. Has runny nose for the last 2 days, has dry cough. Appetite is okay. No difficulty swallowing. No nausea, no vomiting, no abdominal pain. Normal bowel and bladder movements. He is making urine and no hematuria or burning micturitions. As for the swelling in the legs, he thinks it might have gotten a little worse. Ambulates with help of a stick at home. His stools are black because he is on iron pills. ALLERGIES: CODEINE. PAST MEDICAL HISTORY: As mentioned above. PAST SURGICAL HISTORY: Cataract surgery, colonoscopy, lumbar disc surgery. MEDICATIONS: The patient is currently on Zithromax 250 mg p.o. daily, lisinopril 10 mg p.o. daily, torsemide 40 mg daily, Norvasc 5 mg p.o. daily, glipizide 10 mg p.o. b.i.d., Toprol-XL 25 mg daily, ferrous sulfate 325 mg p.o. b.i.d., Keppra 500 mg p.o. b.i.d., Victoza 1.2 mg under skin daily, lovastatin 80 mg p.o. at bedtime, vitamin D 2000 units p.o. daily. FAMILY HISTORY: Significant for mother had diarrhea with colon cancer in 70s. Sister had cancer. Maternal grandmother has diabetes. Brother has heart disorder. SOCIAL HISTORY: , currently lives with his daughter. Smokes half pack a day. No alcohol use, no drug use. REVIEW OF SYSTEMS: As per HPI. Rest of review of systems negative. PHYSICAL EXAMINATION: GENERAL: The patient is obese, currently not in acute distress. VITAL SIGNS: Temperature 37.1, pulse 81, respiratory rate 22, blood pressure 150/75, oxygen when he came in was 82%, currently 98% on 6 liters OxyMask. HEENT: No pallor, no icterus. Pupils equal, round, reactive to light. Extraocular muscles intact. NECK: No JVD, no neck masses, no carotid bruits. CARDIOVASCULAR: S1, S2 heard, regular rate and rhythm. RESPIRATORY: Bilateral mild wheezing present. Mild bibasilar crackles. ABDOMEN: Soft, bowel sounds present, nontender. No distention. CENTRAL NERVOUS SYSTEM: Cranial nerves II-XII grossly intact. Nonfocal. EXTREMITIES: +1 pedal edema present, no erythema seen. LABORATORY DATA: WBC 11.2, hemoglobin 12.2, hematocrit 38, platelets 257. PT 10.9, INR 1.1, APTT 26.9. Sodium 140, potassium 4.3, chloride 105, bicarbonate 31, BUN 46, creatinine 3.5, serum glucose 141, calcium 8.7, total bilirubin 0.3, AST 16, ALT 26, alkaline phosphatase 59. Troponin I less than 0.015. IMAGING DATA: Chest x-ray, bilateral congestion seen. ASSESSMENT AND PLAN: This is a 79-year-old male who presents with shortness of breath and found to be in acute congestive heart failure and chronic obstructive pulmonary disease exacerbation. 1. Shortness of breath probably secondary to acute on chronic diastolic congestive heart failure. Last echo in June showed normal ejection fraction and grade 2 diastolic dysfunction. On torsemide 40 daily at home. His creatinine is 3.5, baseline is around 3. To continue his home torsemide for now and continue oxygen supplementation. He is not on oxygen at home. Consult nephrology in the a.m. for adjustment of diuretics and also consult cardiology for further recommendation. Closely monitor on tele floor. 2. Chronic obstructive pulmonary disease exacerbation. Shortness of breath could also be form COPD exacerbation. He has mild wheezing. He still smokes half pack of cigarettes a day. Not on any inhalers at home. We will place him on nebs around the clock and p.r.n. IV Solu-Medrol 40 t.i.d. He was started on azithromycin by his PCP, which he will continue for now and monitor the response. 3. Acute kidney injury on chronic kidney disease stage IV. Baseline creatinine of 3.0, current creatinine of 3.5. He was recently started on lisinopril outpatient by Nephrology. Will hold the lisinopril. Continue his home torsemide. He also has an AV fistula on his right arm. We will consult nephrology for further recommendations. Monitor his labs. 4. Diabetes. Hold his home medication of glipizide. Placed him on Lantus and sliding scale. Monitor blood sugar while the patient is on steroids. 5. History of subdural hemorrhage. Currently not on any anticoagulation. Continue his Keppra. 6. History of atrial fibrillation, rate controlled, on metoprolol. Not on anticoagulation currently. 7. History of hypertension. Continue his home medications. As per the EPIC list, he is on amlodipine, Toprol-XL, torsemide, and lisinopril. We will hold the lisinopril. We will monitor the blood pressure. 8. Hyperlipidemia, on statin. 9. Obstructive sleep apnea, not on any CPAP at home. We will keep him on CPAP while in the hospital. 10. Tobacco abuse disorder, needs counseling. 11. Deep venous thrombosis prophylaxis, sequential compression devices for now. 12. Disposition: Admit to tele floor. PT and OT prior to discharge. Social service to help with discharge planning. Code status DNR as per my discussion with the daughter. KAVITA
[2019-09-15 06:30] LABS: Appearance Urine Cloudy (Clear); Bacteria Urine Automated Negative (Negative); Bilirubin Urine Negative (Negative); Blood Urine 1+ (Negative); Color Urine Yellow; Epithelial Cell Urine Auto >30 /lpf (0-5); Glucose Urine UA Trace (Negative); Ketones Urine Negative (Negative); Leukocyte Esterase Urine Negative (Negative); Nitrite Urine Negative (Negative); Protein Urine 4+ (Negative); RBC Urine Automated 0-4 /hpf (0-4); Specific Gravity Urine 1.024 (1.000-1.030); Urobilinogen Urine Negative (Negative)
--- NOTE | 2019-09-15 06:52 | XRay Report ---
XR chest 1V portable CLINICAL HISTORY: Dyspnea COMPARISON STUDY: Chest radiograph July 30, 2019. FINDINGS: Cardiomegaly is noted. There is no pneumothorax. Moderate interstitial pulmonary edema is n oted. There is no pneumothorax. There are probable small bilateral pleural effusions. IMPRESSION: Interval development of moderate pulmonary edema with suspected small bilateral pleural effusions. Electronically signed by: Daniel Muñoz M.D. 09/15/2019 6:51 AM
[2019-09-15] MEDS ORDERED: IPRATROPIUM BROMIDE NEB SOLN 0.02% 2.5 ML VIAL INH SCH (07:00)
[2019-09-15] MEDS ORDERED: XOPENEX/ATROVENT 0.63mg/0.5MG NEB COMBO NEB SCH (07:00)
[2019-09-15] MEDS ORDERED: LEVALBUTEROL HCL 0.63 MG/3 ML NEB NEB SCH (07:00)
[2019-09-15 07:23] LABS: Estimated Average Glucose 143 mg/dl; Hemoglobin A1C 6.6 % (4.5-5.6)
[2019-09-15 07:34] LABS: BUN Creatinine Ratio 13.8 (10-20); Calcium 8.7 mg/dl (8.5-10.1); Creatinine Clr Calc Pharmacy 23.4 ml/min; Est GFR (African American) 19.4; Est GFR (Non-African American) 16.7; Potassium 4.7 mmol/L (3.5-5.1)
[2019-09-15] MEDS: INSULIN ASPART 100 UNITS/ML 3 ML PEN SC SCH ×4 (08:22→20:55)
--- NOTE | 2019-09-15 08:42 | Cardiology Consultation ---
Date of Consultation September 15, 2019 Assessment & Plan (1) Acute respiratory failure: Secondary to acute bronchitis Diffuse wheezing noted on exam. Discussed with hospitalist. Proceed with nebs, antibiotics, steroids. Does not examine as significantly volume overloaded. (2) Chronic diastolic heart failure: Appears euvolemic from cardiac standpoint. Nephrology consulted. Given rise in creatinine, will defer diuretic management (3) CKD (chronic kidney disease), stage IV: Appreciate nephrology input Lisinopril on hold (4) Atrial fibrillation: Paroxysmal atrial fibrillation continue metoprolol. currently in NSR Not a candidate for superintendent container terminal anticoagulation given fall and subdural hematoma earlier this year. Case discussed with Dr. Matias Supervising Physician Co-Signing Physician Notes Patient seen and examined with Monse Bryant PA-C. Agree with findings and assessment as above. Seen with daughter at bedside. Had 1 day of outpatient abx before symptoms worsened. No sign of cardiac involvement. No further cardiac testing or intervention necessary. Will sign off. Please call with questions or concerns. Dr. Woodson is assuming service 09/16. General: Awake, alert and oriented x 3. No acute distress. HEENT: Normocephalic, atraumatic. Pupils equal, round and reactive to light and accommodation. Extraocular muscles are intact. Anicteric sclera. Moist mucous membranes. Neck: No JVD. No bruit. Cardiovascular: Regular. Positive S-4. Normal S-1 and S-2. No S-3. No murmurs or rubs. Pulmonary: poor air movement diffusely with diffuse rhonchi and wheezing. no rales Abdomen: Bowel sounds x 4, soft. No rebound, guarding or tenderness. No org anomegaly. Extremities: No clubbing, cyanosis or edema. +2 pedal pulses bilaterally. Skin: Warm and dry. History of Present Illness Reason for Consultation: SOB Requesting Physician: Dr. Salazar Attending Physician: Dr. Matias History of Present Illness Patient is a 79 year old male, known to [facility], primary cardiovascular physician assistant Dr. Santos. History significant for chronic diastolic CHF, ongoing tobacco abuse, diabetes, hyperlipidemia, obstructive sleep apnea, not on CPAP, paroxysmal atrial fibrillation no longer on Coumadin after sustaining a fall with subdural hematoma, CKD and hypertension Patient reports 2 weeks of progressive SOB, cough, wheeze. Saw PCP yesterday in the office. Diagnosed with bronchitis and provided Zpak. Unfortunately last night patient became more SOB and EMS was summoned. On arrival to ER, patient treated with IV steroids, nebs for bronchitis. Possible CHF component and cardiology was consulted. Troponin negative. EKG with NSR. Diuretics were unchanged. Mild worsening of his CKD noted with creatinine 3.5. At time of consult, patient resting comfortably with Oxymask in place. Still requiring high flow oxygen but states his SOB and breathing has greatly improved since admission. no chest pain. ongoing cough reported. Audible wheezing. mild b/l edema. No chest pain. No fever or chills. Family at bedside. Allergies Allergy/AdvReac Type Severity Reaction Status Date / Time codeine AdvReac Intermediate NAUSEA Verified 09/15/19 02:14 Home Medications Home Medications Medication Instructions Recorded Confirmed Type Victoza 2-Fernando 1.2 mg SUBCUT DAILY 02/09/19 09/15/19 History cholecalciferol (vitamin D3) 2,000 units PO DAILY 02/09/19 09/15/19 History glipizide 10 mg PO BID 02/09/19 09/15/19 History lovastatin 80 mg PO HS 02/09/19 09/15/19 History levetiracetam 500 mg PO BID 05/10/19 09/15/19 History acetaminophen 650 mg PO Q6H PRN 07/06/19 09/15/19 History metoprolol succinate 25 mg PO DAILY 07/26/19 09/15/19 History torsemide 40 mg PO QAM 30 Days #120 tab 08/01/19 09/15/19 Rx Iron 65 65 mg PO BID 09/15/19 09/15/19 History amlodipine 5 mg PO DAILY 09/15/19 09/15/19 History azithromycin 250 mg PO DAILY 09/15/19 09/15/19 History lisinopril 10 mg PO DAILY 09/15/19 09/15/19 History Patient History Medical History Chronic diastolic heart failure CKD (chronic kidney disease), stage IV (Chronic) follows w/ Dr. Kolb ([facility]) Atrial fibrillation (Chronic) dx 2015 - no longer taking warfarin - recent fall w/ brain bleed 03/2019 Tobacco use disorder (Chronic) CARLOS ALBERTO (obstructive sleep apnea) (Chronic) does not tolerate CPAP HTN (hypertension), benign (Chronic) Dyslipidemia (Chronic) 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 - fall - [place] ER visit 03/30/2019 --> [facility] [place] COPD (chronic obstructive pulmonary disease) (Chronic) Hypertension (Chronic) Diabetes (Chronic) Obstructive sleep apnea (Chronic) Chronic renal insufficiency (Chronic) Chronic systolic heart failure (Chronic) Diabetes mellitus, type 2 (Chronic) History of CVA (cerebrovascular accident) (Chronic) 2016 - dx w/ a.fib - [facility] - no deficits History of seizure (Resolved) history obtained from dtr - unsure of last seizure Surgical History History of back surgery (Resolved) History of cataract surgery (Chronic) History of colonoscopy (Chronic) History of esophagogastroduodenoscopy (EGD) (Chronic) History of lumbar spinal fusion (Chronic) x 2 History of tooth extraction (Chronic) Family History Mother Cancer Social History Preferred Language: Citizen [place] Communication Ability: Effective Glove Operator Required: No Beliefs That Will Affect Care: None marital status: Current Living Situation: Family Feels Safe at Home: Yes Safety Concerns: Feels Safe At This Time Smoking Status: Current every day smoker Tobacco Type: cigarettes ; Cigarettes Per Day: 5 ; Second Hand Exposure: Yes ; Hx Alcohol Use: No Hx Substance Use: No Review of Systems Review of Systems: All systems reviewed & are unremarkable except as noted in HPI & below Physical Exam Constitutional: WD/WN, vitals as above + ill appearing and + obese; no acute distress Respiratory: + cough; no respiratory distress Auscultation: + wheezes (diffuse b/l); no rales Cardiovascular: Rate/Rhythm: regular rate and regular rhythm Heart Sounds: no murmur Extremities: + edema (trace pretibial edema b/l) Gastrointestinal (Abdomen): normal bowel sounds, soft, nontender, no hepatosplenomegaly Neurologic: PERRL, EOMI, accommodation nl, no face palsy, no dysarthria Psychiatric: A+Ox3, euthymic affect Results & Data Vital Signs (Past 12 Hours) Vital Signs Temp Pulse Pulse Resp BP BP Pulse Ox 09/15/19 07:52 37.1 C 87 18 156/73 H 90 09/15/19 06:53 89 18 90 09/15/19 04:51 37 C 84 83 20 172/70 H 92 09/15/19 04:39 77 22 162/77 H 95 09/15/19 04:01 79 21 138/76 95 09/15/19 03:31 83 17 152/70 H 96 09/15/19 03:01 81 27 H 159/67 H 97 09/15/19 03:00 81 22 150/75 H 98 09/15/19 02:57 81 25 H 150/75 H 96 09/15/19 01:50 91 H 25 H 170/71 H 88 L 09/15/19 01:44 37.1 C 83 24 170/71 H 98 Laboratory Results 09/15/19 09/15/19 09/15/19 Range/Units 06:45 06:45 06:20 WBC (4.8-10.8) K/uL RBC (4.7-6.1) M/uL Hgb (14.0-18.0) g/dL Hct (42-52) % MCV (80-100) fL MCH (25-34) pg MCHC (32-36) g/dL RDW Std Deviation (36.4-46.3) fL RDW Coeff of Kiah (11.5-14.5) % Plt Count (130-400) K/uL MPV (7.4-10.4) fL Immature Gran % (Auto) % Neut % (Auto) % Lymph % (Auto) % [place] % (Auto) % Eos % (Auto) % Baso % (Auto) % Immature Gran # (Auto) (0.00-0.02) K/uL Neut # (Auto) (1.4-6.5) K/uL Lymph # (Auto) (1.2-3.4) K/uL [place] # (Auto) (0.11-0.59) K/uL Eos # (Auto) (0-0.5) K/uL Baso # (Auto) (0-0.2) K/uL PT (9.0-12.0) Seconds INR (0.9-1.1) APTT (21.0-31.0) Seconds PTT Ratio Sodium 138 (136-145) mmol/L Potassium 4.7 (3.5-5.1) mmol/L Chloride 105 (98-107) mmol/L Carbon Dioxide 28 (21-32) mmol/L Anion Gap 5.0 (3-11) BUN 46 H (7-18) mg/dl Creatinine 3.32 H (0.6-1.4) mg/dl Est Cr Clr Drug Dosing 23.4 ml/min Est GFR ( Amer) 19.4 Est GFR (Non-Af Amer) 16.7 BUN/Creatinine Ratio 13.8 (10-20) Glucose 177 H (70-99) mg/dl Estimat Average Glucose 143 mg/dl Hemoglobin A1c 6.6 H (4.5-5.6) % Calcium 8.7 (8.5-10.1) mg/dl Total Bilirubin (0.2-1) mg/dl AST (15-37) U/L ALT (12-78) U/L Alkaline Phosphatase (45-117) U/L Troponin I (0-0.045) ng/ml Total Protein (6.4-8.2) gm/dl Albumin (3.4-5.0) gm/dl Globulin (2.5-4.0) gm/dl Albumin/Globulin Ratio (0.9-2) Urine Color Yellow Urine Appearance Cloudy A (Clear) Urine pH 5.0 (4.5-7.5) Ur Specific [place] 1.024 (1.000-1.030) Urine Protein 4+ H (Negative) Urine Glucose (UA) Trace H (Negative) Urine Ketones Negative (Negative) Urine Blood 1+ H (Negative) Urine Nitrite Negative (Negative) Urine Bilirubin Negative (Negative) Urine Urobilinogen Negative (Negative) Ur Leukocyte Esterase Negative (Negative) Urine WBC (Auto) 1-5 (0-5) /hpf Urine RBC (Auto) 0-4 (0-4) /hpf U Hyaline Cast (Auto) 5-10 H (0-5) /lpf U Epithel Cells (Auto) >30 H (0-5) /lpf Urine Bacteria (Auto) Negative (Negative) 09/15/19 09/15/19 09/15/19 Range/Units 01:40 01:40 01:40 WBC 11.23 H (4.8-10.8) K/uL RBC 4.12 L (4.7-6.1) M/uL Hgb 12.2 L (14.0-18.0) g/dL Hct 38.0 L (42-52) % MCV 92.2 (80-100) fL MCH 29.6 (25-34) pg MCHC 32.1 (32-36) g/dL RDW Std Deviation 50.7 H (36.4-46.3) fL RDW Coeff of [place]iah 15.0 H (11.5-14.5) % Plt Count 257 (130-400) K/uL MPV 10.0 (7.4-10.4) fL Immature Gran % (Auto) 0.2 % Neut % (Auto) 84.3 % Lymph % (Auto) 7.7 % [place] % (Auto) 7.2 % Eos % (Auto) 0.4 % Baso % (Auto) 0.2 % Immature Gran # (Auto) 0.02 (0.00-0.02) K/uL Neut # (Auto) 9.46 H (1.4-6.5) K/uL Lymph # (Auto) 0.87 L (1.2-3.4) K/uL [place] # (Auto) 0.81 H (0.11-0.59) K/uL Eos # (Auto) 0.05 (0-0.5) K/uL Baso # (Auto) 0.02 (0-0.2) K/uL PT 10.8 (9.0-12.0) Seconds INR 1.1 (0.9-1.1) APTT 26.9 (21.0-31.0) Seconds PTT Ratio 1.0 Sodium 140 (136-145) mmol/L Potassium 4.3 (3.5-5.1) mmol/L Chloride 105 (98-107) mmol/L Carbon Dioxide 31 (21-32) mmol/L Anion Gap 4.0 (3-11) BUN 46 H (7-18) mg/dl Creatinine 3.53 H (0.6-1.4) mg/dl Est Cr Clr Drug Dosing 22.3 ml/min Est GFR ( Amer) 18.0 Est GFR (Non-Af Amer) 15.5 BUN/Creatinine Ratio 13.1 (10-20) Glucose 141 H (70-99) mg/dl Estimat Average Glucose mg/dl Hemoglobin A1c (4.5-5.6) % Calcium 8.7 (8.5-10.1) mg/dl Total Bilirubin 0.3 (0.2-1) mg/dl AST 16 (15-37) U/L ALT 26 (12-78) U/L Alkaline Phosphatase 59 (45-117) U/L Troponin I < 0.015 (0-0.045) ng/ml Total Protein 7.4 (6.4-8.2) gm/dl Albumin 3.1 L (3.4-5.0) gm/dl Globulin 4.3 H (2.5-4.0) gm/dl Albumin/Globulin Ratio 0.7 L (0.9-2) Urine Color Urine Appearance (Clear) Urine pH (4.5-7.5) Ur Specific [place] (1.000-1.030) Urine Protein (Negative) Urine Glucose (UA) (Negative) Urine Ketones (Negative) Urine Blood (Negative) Urine Nitrite (Negative) Urine Bilirubin (Negative) Urine Urobilinogen (Negative) Ur Leukocyte Esterase (Negative) Urine WBC (Auto) (0-5) /hpf Urine RBC (Auto) (0-4) /hpf U Hyaline Cast (Auto) (0-5) /lpf U Epithel Cells (Auto) (0-5) /lpf Urine Bacteria (Auto) (Negative) Diagnostic Findings EKG on admission reviewed; Sinus rhythm with 1st degree A-V block Otherwise normal ECG No significant change from previous Chest xray report reviewed: IMPRESSION: Interval development of moderate pulmonary edema with suspected small bilateral pleural effusions Echocardiogram on 07/06/19 reviewed: normal LV chamber size with mild concentric LVH, EF was 55 to 60%, no segmental left ventricular wall motion abnormalities, grade 2 diastolic dysfunction, aortic valve sclerosis without stenosis
[2019-09-15] MEDS ORDERED: TORSEMIDE 10 MG TAB PO SCH (09:00)
[2019-09-15] MEDS ORDERED: methylPREDNISolone 40 MG in SYRINGE 0 ML IV SCH (09:00)
[2019-09-15] MEDS: INSULIN GLARGINE SOLOSTAR 100 UNITS/ML 3 ML PEN SC SCH ×2 (09:24→20:50)
[2019-09-15] MEDS: levETIRAcetam 500 MG TAB PO SCH ×2 (09:25→20:43)
[2019-09-15] MEDS: AZITHROMYCIN 250 MG TAB PO SCH (09:25)
[2019-09-15] MEDS: FERROUS SULFATE 325 MG TAB PO SCH ×2 (09:25→20:43)
[2019-09-15] MEDS: METOPROLOL SUCC 25MG EXT REL TAB PO SCH (09:26)
[2019-09-15] MEDS: AMLODIPINE BESYLATE 5 MG TAB PO SCH (09:26)
[2019-09-15] MEDS: FUROSEMIDE 80 MG in SYRINGE 0 ML IV SCH ×2 (10:29→20:43)
--- NOTE | 2019-09-15 10:44 | Nephrology Consultation ---
Date of Consultation September 15, 2019 Assessment & Plan (1) CKD (chronic kidney disease), stage IV: Patient with the CKD stage IV due to diabetic nephropathy. Baseline creatinine in the low threes for the past 2 months. He has 4 g of proteinuria. He is now admitted with acute hypoxic respiratory failure of multifactorial etiology. His electrolytes are stable. He has signs of volume overload. We will attempt managing his volume overload with IV Lasix. He has an AV fistula which has a high-pitched sound and will need intervention before use. I do not think he needs dialysis imminently. I suspect will be able to manage his volume status with IV Lasix. Monitor renal function with daily BMP. Avoid nephrotoxins such as NSAIDs and contrast. (2) Acute respiratory failure: Due to multifactorial etiology including bronchitis and pulmonary edema. Chest x-ray today showing pulmonary edema. We will start him on IV Lasix 80 mg twice daily. Stop torsemide. Monitor input output. Patient might need Bailey catheter for monitoring input output. Titrate oxygen for oxygen saturation above 92%. (3) Chronic diastolic heart failure: Patient with diastolic CHF. Will give him IV Lasix and monitor input output. Ensure fluid restriction of 1.2 L daily. Appreciate recommendations from cardiology History of Present Illness Reason for Consultation: CKD 4 complicated by acute hypoxia Requesting Physician: Abeba Rosen MD Attending Physician: Abeba Rosen MD History of Present Illness This is 79-year-old male who was admitted 09/15/2019 with acute hypoxic respira tory failure being seen for CKD and volume overload. PMH includes advanced CKD 4 w/ 4 gm proteinuria, DM >15 years, active tobacco abuse, chronic diastolic HF, subdural hematoma 03/2019, a fib, HTN, CARLOS ALBERTO unable to afford CPAP. Admitted here in June and July w/ acute hypoxic respiratory failure from acute DHF and d/c on torsemide 60 mg daily. Patient reports few days of progressively worsen ing shortness of breath and cough. He went to the PCP yesterday and was given Z-Fernando. He presented to the emergency room due to worsening symptoms. In the ED he was hypoxic and required high flow oxygen. He was treated with prednisone and antibiotics. Chest x-ray shows pulmonary edema. He feels a little better this morning but still short of breath. He has mild leg swelling. He denied NSAID use. His creatinine is 3.3 which has been his baseline for the past 1 to 2 months. Allergies Allergy/AdvReac Type Severity Reaction Status Date / Time codeine AdvReac Intermediate NAUSEA Verified 09/15/19 02:14 Home Medications Home Medications Medication Instructions Recorded Confirmed Type Victoza 2-Fernando 1.2 mg SUBCUT DAILY 02/09/19 09/15/19 History cholecalciferol (vitamin D3) 2,000 units PO DAILY 02/09/19 09/15/19 History glipizide 10 mg PO BID 02/09/19 09/15/19 History lovastatin 80 mg PO HS 02/09/19 09/15/19 History levetiracetam 500 mg PO BID 05/10/19 09/15/19 History acetaminophen 650 mg PO Q6H PRN 07/06/19 09/15/19 History metoprolol succinate 25 mg PO DAILY 07/26/19 09/15/19 History torsemide 40 mg PO QAM 30 Days #120 tab 08/01/19 09/15/19 Rx Iron 65 65 mg PO BID 09/15/19 09/15/19 History amlodipine 5 mg PO DAILY 09/15/19 09/15/19 History azithromycin 250 mg PO DAILY 09/15/19 09/15/19 History lisinopril 10 mg PO DAILY 09/15/19 09/15/19 History Patient History Medical History Chronic diastolic heart failure CKD (chronic kidney disease), stage IV (Chronic) follows w/ Dr. Kolb ([facility]) Atrial fibrillation (Chronic) dx 2015 - no longer taking warfarin - recent fall w/ brain bleed 03/2019 Tobacco use disorder (Chronic) CARLOS ALBERTO (obstructive sleep apnea) (Chronic) does not tolerate CPAP HTN (hypertension), benign (Chronic) Dyslipidemia (Chronic) 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 - fall [place] [facility] [place] (chronic obstructive pulmonary disease) (Chronic) Hypertension (Chronic) Diabetes (Chronic) Obstructive sleep apnea (Chronic) Chronic renal insufficiency (Chronic) Chronic systolic heart failure (Chronic) Diabetes mellitus, type 2 (Chronic) History of CVA (cerebrovascular accident) (Chronic) 2016 - dx w/ a.fib - [facility] - no deficits History of seizure (Resolved) history obtained from dtr - unsure of last seizure Surgical History History of back surgery (Resolved) History of cataract surgery (Chronic) History of colonoscopy (Chronic) History of esophagogastroduodenoscopy (EGD) (Chronic) History of lumbar spinal fusion (Chronic) x 2 History of tooth extraction (Chronic) Family History Mother Cancer Social History Preferred Language: Hebrew Communication Ability: Effective Infant And Toddler Teacher Required: No Beliefs That Will Affect Care: None marital status: Current Living Situation: Family Feels Safe at Home: Yes Safety Concerns: Feels Safe At This Time Smoking Status: Current every day smoker Tobacco Type: cigarettes ; Cigarettes Per Day: 5 ; Second Hand Exposure: Yes ; Hx Alcohol Use: No Hx Substance Use: No Review of Systems Review of Systems: All systems reviewed & are unremarkable except as noted in HPI & below Physical Exam Physical Exam: General exam: Patient is propped up in the bed on oxygen by facemask. Mild respiratory distress HEENT: Pupils are equal and reactive to light Neck: No JVD, neck is supple trachea is midline Respiratory system: Wheezing bilaterally. Gastrointestinal: Abdomen is soft, non distended, non tender, bowel sounds are present CVS: Regular rate and rhythm. No murmurs, rubs or gallops Musculoskeletal: No joint or muscle tenderness Extremities: Non tender, 1+ edema, peripheral pulses are present Neuro: Oriented, no tremors, no focal neurological deficits Skin: No rashes Results & Data Vital Signs (Past 12 Hours) Vital Signs Temp Pulse Pulse Resp BP BP Pulse Ox 09/15/19 07:52 37.1 C 87 18 156/73 H 90 09/15/19 06:53 89 18 90 09/15/19 04:51 37 C 84 83 20 172/70 H 92 09/15/19 04:39 77 22 162/77 H 95 09/15/19 04:01 79 21 138/76 95 09/15/19 03:31 83 17 152/70 H 96 09/15/19 03:01 81 27 H 159/67 H 97 09/15/19 03:00 81 22 150/75 H 98 09/15/19 02:57 81 25 H 150/75 H 96 09/15/19 01:50 91 H 25 H 170/71 H 88 L 09/15/19 01:44 37.1 C 83 24 170/71 H 98 Laboratory Results Laboratory Results - last 24 hr 09/15/19 09/15/19 09/15/19 01:40 01:40 01:40 WBC 11.23 H RBC 4.12 L Hgb 12.2 L Hct 38.0 L MCV 92.2 MCH 29.6 MCHC 32.1 RDW Std Deviation 50.7 H RDW Coeff of Kiah 15.0 H Plt Count 257 MPV 10.0 Immature Gran % (Auto) 0.2 Neut % (Auto) 84.3 Lymph % (Auto) 7.7 [place] % (Auto) 7.2 Eos % (Auto) 0.4 Baso % (Auto) 0.2 Immature Gran # (Auto) 0.02 Neut # (Auto) 9.46 H Lymph # (Auto) 0.87 L [place] # (Auto) 0.81 H Eos # (Auto) 0.05 Baso # (Auto) 0.02 PT 10.8 INR 1.1 APTT 26.9 PTT Ratio 1.0 Sodium 140 Potassium 4.3 Chloride 105 Carbon Dioxide 31 Anion Gap 4.0 BUN 46 H Creatinine 3.53 H Est Cr Clr Drug Dosing 22.3 Est GFR ( Amer) 18.0 Est GFR (Non-Af Amer) 15.5 BUN/Creatinine Ratio 13.1 Glucose 141 H Estimat Average Glucose Hemoglobin A1c Calcium 8.7 Total Bilirubin 0.3 AST 16 ALT 26 Alkaline Phosphatase 59 Troponin I < 0.015 Total Protein 7.4 Albumin 3.1 L Globulin 4.3 H Albumin/Globulin Ratio 0.7 L Urine Color Urine Appearance Urine pH Ur Specific [place] Urine Protein Urine Glucose (UA) Urine Ketones Urine Blood Urine Nitrite Urine Bilirubin Urine Urobilinogen Ur Leukocyte Esterase Urine WBC (Auto) Urine RBC (Auto) U Hyaline Cast (Auto) U Epithel Cells (Auto) Urine Bacteria (Auto) 09/15/19 09/15/19 09/15/19 06:20 06:45 06:45 WBC RBC Hgb Hct MCV MCH MCHC RDW Std Deviation RDW Coeff of Kiah Plt Count MPV Immature Gran % (Auto) Neut % (Auto) Lymph % (Auto) [place] % (Auto) Eos % (Auto) Baso % (Auto) Immature Gran # (Auto) Neut # (Auto) Lymph # (Auto) [place] # (Auto) Eos # (Auto) Baso # (Auto) PT INR APTT PTT Ratio Sodium 138 Potassium 4.7 Chloride 105 Carbon Dioxide 28 Anion Gap 5.0 BUN 46 H Creatinine 3.32 H Est Cr Clr Drug Dosing 23.4 Est GFR ( Amer) 19.4 Est GFR (Non-Af Amer) 16.7 BUN/Creatinine Ratio 13.8 Glucose 177 H Estimat Average Glucose 143 Hemoglobin A1c 6.6 H Calcium 8.7 Total Bilirubin AST ALT Alkaline Phosphatase Troponin I Total Protein Albumin Globulin Albumin/Globulin Ratio Urine Color Yellow Urine Appearance Cloudy A Urine pH 5.0 Ur Specific [place] 1.024 Urine Protein 4+ H Urine Glucose (UA) Trace H Urine Ketones Negative Urine Blood 1+ H Urine Nitrite Negative Urine Bilirubin Negative Urine Urobilinogen Negative Ur Leukocyte Esterase Negative Urine WBC (Auto) 1-5 Urine RBC (Auto) 0-4 U Hyaline Cast (Auto) 5-10 H U Epithel Cells (Auto) >30 H Urine Bacteria (Auto) Negative
[2019-09-15] MEDS: cefTRIAXone SODIUM 2,000 MG in DEXTROSE 5% 50 ML IV SCH (10:59)
[2019-09-15] MEDS: IPRATROPIUM BROMIDE NEB SOLN 0.02% 2.5 ML VIAL INH SCH ×4 (11:09→23:37)
[2019-09-15] MEDS: LEVALBUTEROL HCL 1.25 MG/3 ML NEB NEB SCH ×4 (11:09→23:37)
[2019-09-15] MEDS: methylPREDNISolone 40 MG in SYRINGE 0 ML IV SCH ×2 (13:00→20:42)
--- NOTE | 2019-09-15 14:56 | Emergency Department Note ---
Entered by Piedad Allison acting as a scribe for History of Present Illness General Chief complaint: Shortness of Breath/Dyspnea Stated complaint: Breathing difficulty Time Seen by Provider: 09/15/19 01:46 Source: patient, family (daughter) and EMS Mode of arrival: EMS History of Present Illness Onset (ago): hour(s) 2 Location: chest Pain Consistency: + intermittent Exacerbated By: + other (laying down) Associated symptoms: + denies other symptoms (denies abdominal pain, chest pain) and + shortness of breath; no loss of appetite Treatments prior to arrival: other (Duoneb, Albuterol, oxygen) The patient is a 79 year old male who presents to the Emergency Room with complaints of shortness of breath that began around 2 hours ago. EMS reports that the patient has a history of CHF. He has been on Z pack for a cold he has had over the past week. He went to bed tonight, but then woke up at 2300 with difficulty breathing. His room air was 72-74%, and he is not on oxygen at home. He received oxygen in the ambulance, as well as Duoneb and albuterol. EMS reports diminished lung sounds. The patient complains of shortness of breath, and said he could not lay down flat in his bed. He got up to go to the bathroom, and when he laid back down in bed at around 2300, he experienced shortness of breath and could not sleep. He states that he has had a normal appetite recently. He denies chest pain and abdominal pain. The patient was recently in the hospital for heart failure, and he stopped taking Lasix back in March. He lives with his daughter and grandson at home. His daughter reports that he also has a history of COPD, but does not use inhalers at home. Home Medications Home Medications Medication Instructions Recorded Confirmed Type Victoza 2-Fernando 1.2 mg SUBCUT DAILY 02/09/19 09/15/19 History cholecalciferol (vitamin D3) 2,000 units PO DAILY 02/09/19 09/15/19 History glipizide 10 mg PO BID 02/09/19 09/15/19 History lovastatin 80 mg PO HS 02/09/19 09/15/19 History levetiracetam 500 mg PO BID 05/10/19 09/15/19 History acetaminophen 650 mg PO Q6H PRN 08/08/19 10/18/19 History metoprolol succinate 25 mg PO DAILY 07/26/19 09/15/19 History torsemide 40 mg PO QAM 30 Days #120 tab 08/01/19 09/15/19 Rx Iron 65 65 mg PO BID 09/15/19 09/15/19 History amlodipine 5 mg PO DAILY 09/15/19 09/15/19 History azithromycin 250 mg PO DAILY 09/15/19 09/15/19 History lisinopril 10 mg PO DAILY 09/15/19 09/15/19 History Allergies Allergy/AdvReac Type Severity Reaction Status Date / Time codeine AdvReac Intermediate NAUSEA Verified 09/15/19 02:14 Past Med/Surg History Medical History Chronic diastolic heart failure CKD (chronic kidney disease), stage IV (Chronic) follows w/ Dr. Kolb ([facility]) Atrial fibrillation (Chronic) dx 2015 - no longer taking warfarin - recent fall w/ brain bleed 03/2019 Tobacco use disorder (Chronic) CARLOS ALBERTO (obstructive sleep apnea) (Chronic) does not tolerate CPAP HTN (hypertension), benign (Chronic) Dyslipidemia (Chronic) 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 - fall - [place] ER visit 03/30/2019 --> [facility] COPD (chronic obstructive pulmonary disease) (Chronic) Hypertension (Chronic) Diabetes (Chronic) Obstructive sleep apnea (Chronic) Chronic renal insufficiency (Chronic) Chronic systolic heart failure (Chronic) Diabetes mellitus, type 2 (Chronic) History of CVA (cerebrovascular accident) (Chronic) 2015 - dx w/ a.fib - [facility] - no deficits History of seizure (Resolved) history obtained from dtr - unsure of last seizure Surgical History History of back surgery (Resolved) History of cataract surgery (Chronic) History of colonoscopy (Chronic) History of esophagogastroduodenoscopy (EGD) (Chronic) History of lumbar spinal fusion (Chronic) x 2 History of tooth extraction (Chronic) Family History Mother Cancer Social History Preferred Language: Serbian Communication Ability: Effective 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 and A total of 10 systems reviewed and were otherwise negative Physical Exam Vital Signs Vital Signs - 24 hr 09/15/19 01:44 09/15/19 01:50 09/15/19 02:57 Temperature 37.1 C Temperature Source Oral Sepsis Recent Fever Within 48 Hours No Sepsis New/Unexplained Change in Mental Status No Sepsis Action Taken by Nursing No Action Required Pulse Rate 83 91 H 81 Pulse Rate [Apical] Pulse Rate from SpO2 Sensor 85 81 Pulse Rhythm Regular Pulse Rhythm [Apical] Pulse Strength Normal Pulse Strength [Apical] Respiratory Rate 24 25 H 25 H Respiratory Effort / Characteristics Non-Labored Spontaneous Respiratory Depth Normal Respiratory Pattern Regular Blood Pressure 170/71 H 170/71 H 150/75 H Blood Pressure [Right Arm] Blood Pressure Mean 104 104 100 Blood Pressure Mean [Right Arm] Blood Pressure Position Sitting Blood Pressure Position [Right Arm] Pulse Oximetry 98 88 L 96 Oxygen Delivery Method Oxymask Oxygen Flow Rate 6 09/15/19 03:00 09/15/19 03:01 09/15/19 03:31 Temperature Temperature Source Sepsis Recent Fever Within 48 Hours Sepsis New/Unexplained Change in Mental Status Sepsis Action Taken by Nursing Pulse Rate 81 83 Pulse Rate [Apical] 81 Pulse Rate from SpO2 Sensor 81 82 Pulse Rhythm Pulse Rhythm [Apical] Regular Pulse Strength Pulse Strength [Apical] Normal Respiratory Rate 22 27 H 17 Respiratory Effort / Characteristics Non-Labored Spontaneous Respiratory Depth Normal Respiratory Pattern Regular Blood Pressure 159/67 H 152/70 H Blood Pressure [Right Arm] 150/75 H Blood Pressure Mean 97 97 Blood Pressure Mean [Right Arm] 100 Blood Pressure Position Blood Pressure Position [Right Arm] Lying Pulse Oximetry 98 97 96 Oxygen Delivery Method Oxymask Oxygen Flow Rate 6 09/15/19 04:01 Temperature Temperature Source Sepsis Recent Fever Within 48 Hours Sepsis New/Unexplained Change in Mental Status Sepsis Action Taken by Nursing Pulse Rate 79 Pulse Rate [Apical] Pulse Rate from SpO2 Sensor 79 Pulse Rhythm Pulse Rhythm [Apical] Pulse Strength Pulse Strength [Apical] Respiratory Rate 21 Respiratory Effort / Characteristics Respiratory Depth Respiratory Pattern Blood Pressure 138/76 Blood Pressure [Right Arm] Blood Pressure Mean 96 Blood Pressure Mean [Right Arm] Blood Pressure Position Blood Pressure Position [Right Arm] Pulse Oximetry 95 Oxygen Delivery Method Oxygen Flow Rate HEENT: Head - normocephalic and atraumatic Pupils are equal, round, and reactive to light. Extraocular eye muscles are intact, and sclera are anicteric. Nose - moist nasal mucosa without discharge. Mouth - moist buccal mucosa. Oropharynx is nonerythematous and there is no tonsillar exudate or edema noted. Neck: Supple; no JVD, nuchal rigidity, cervical lymphadenopathy, or auscultated bruits. Heart: Regular rate and rhythm. There is a normal S1 and S2 with no murmurs, clicks, or gallops appreciated. Lungs: Diffuse rales and wheezes in all lung lynch. Abdomen: Abdomen is protuberant. Soft, completely nontender, with good bowel sounds. There are no palpable pulsatile masses or hepatosplenomegaly. There is no guarding, rigidity, or rebound noted. Extremities: 3+ edema bilaterally in lower extremities. No evidence of cyanosis, or clubbing. There are easily palpable peripheral pulses. Skin: warm and dry with good turgor and no rashes. Course 0323: Past medical records reviewed. The patient was evaluated in room A03. A complete history and physical exam was performed. Laboratory studies were drawn as above. A twelve-lead EKG was obtained. A portable chest x-ray was obtained. The patient has obvious congestive heart failure. 0324: I rechecked on the patient, and discussed with family about keeping the patient in the hospital for further evaluation. His oxygen saturations are stable at this time on an oxygen mask. 0347: The patient was administered 125 mg Solumedrol IV. 0338: [facility] care [facility] the patient. The patient verbally expressed understanding and agreement of the treatment plan. The patient will be evaluated for further treatment. Administered Medications Amlodipine Besylate (Norvasc) 5 mg PO DAILY [facility] Stop: 10/15/19 08:59 Last Admin: 09/15/19 09:26 Dose: 5 mg Documented by: [id number] Azithromycin (Zithromax) 250 mg PO DAILY [facility] Stop: 09/22/19 08:59 Last Admin: 09/15/19 09:25 Dose: 250 mg Documented by: [id number] Ferrous Sulfate (Feosol) 325 mg PO BID [facility] Stop: 10/15/19 08:59 Last Admin: 09/15/19 09:25 Dose: 325 mg Documented by: [id number] Methylprednisolone 40 mg/ (Syringe) 0.64 mls @ 1.5 mls/min IV Q8H [facility] Stop: 10/15/19 11:59 Last Admin: 09/15/19 13:00 Dose: 1.5 mls/min Documented by: [id number] Ceftriaxone Sodium 2,000 mg/ (Dextrose) 70 mls @ 100 mls/hr IV Q24H [facility]; Protocol Stop: 09/22/19 09:59 Last Infusion: 09/15/19 11:50 Dose: 0 mls/hr Documented by: [id number] Admin: 09/15/19 10:59 Dose: 100 mls/hr Documented by: [id number] Furosemide 80 mg/ Syringe 8 mls @ 4 mls/min IV BID [facility] Stop: 10/15/19 10:29 Last Admin: 09/15/19 10:29 Dose: 4 mls/min Documented by: [id number] Insulin Aspart (Novolog Flexpen) 0 units SC ACHS [facility] Stop: 10/15/19 07:29 Last Admin: 09/15/19 12:53 Dose: 7 units Documented by: [id number] Cosigned by: [id number] Admin: 09/15/19 08:22 Dose: 4 units Documented by: [id number] Cosigned by: [id number] Insulin Glargine (Lantus Solostar Pen) 5 units SC BID [facility] Stop: 10/15/19 08:59 Last Admin: 09/15/19 09:24 Dose: 5 units Documented by: [id number] Cosigned by: [id number] Ipratropium [place] (Atrovent 0.02% 0.5mg/2.5ml) 0.5 mg INH Q4R [facility] Stop: 10/15/19 10:59 Last Admin: 09/15/19 11:09 Dose: 0.5 mg Documented by: [id number] Levalbuterol HCl (Xopenex 1.25mg/3ml Neb) 1.25 mg NEB Q4R [facility] Stop: 10/15/19 10:59 Last Admin: 09/15/19 11:09 Dose: 1.25 mg Documented by: [id number] Levetiracetam (Keppra) 500 mg PO BID [facility] Stop: 10/15/19 08:59 Last Admin: 09/15/19 09:25 Dose: 500 mg Documented by: [id number] Metoprolol Succinate (Toprol Xl) 25 mg PO DAILY [facility] Stop: 10/15/19 08:59 Last Admin: 09/15/19 09:26 Dose: 25 mg Documented by: [id number] Discontinued Medications Ipratropium [place] (Atrovent 0.02% 0.5mg/2.5ml) 0.5 mg INH Q6R [facility] Stop: 10/15/19 06:59 Last Admin: 09/15/19 06:53 Dose: 0.5 mg Documented by: [id number] Levalbuterol HCl (Xopenex 0.63 Mg/3 Ml Neb) 0.63 mg NEB Q6R [facility] Stop: 10/15/19 06:59 Last Admin: 09/15/19 06:52 Dose: 0.63 mg Documented by: [id number] Methylprednisolone (Solumedrol) 125 mg IV NOW STA Stop: 09/15/19 03:29 Last Admin: 09/15/19 03:47 Dose: 125 mg Documented by: [id number] Torsemide (Demadex) 40 mg PO QAM [facility] Stop: 10/15/19 08:59 Last Admin: 09/15/19 09:26 Dose: 40 mg Documented by: [id number] Medical Decision Making Differential Diagnosis Differential diagnosis includes, but is not limited to: pneumonia, CHF, and COPD exacerbation. Medical Records Attestation: I reviewed the patient's medical records. Home Medications Current Medication List: was personally reviewed by me Laboratory Data Attestation: I reviewed the patient's lab results. Result diagrams: 09/15/19 01:40 09/15/19 06:45 Lab Results 09/15/19 09/15/19 09/15/19 Range/Units 01:40 01:40 01:40 WBC 11.23 H (4.8-10.8) K/uL RBC 4.12 L (4.7-6.1) M/uL Hgb 12.2 L (14.0-18.0) g/dL Hct 38.0 L (42-52) % MCV 92.2 (80-100) fL MCH 29.6 (25-34) pg MCHC 32.1 (32-36) g/dL RDW Std Deviation 50.7 H (36.4-46.3) fL RDW Coeff of Kiah 15.0 H (11.5-14.5) % Plt Count 257 (130-400) K/uL MPV 10.0 (7.4-10.4) fL Immature Gran % (Auto) 0.2 % Neut % (Auto) 84.3 % Lymph % (Auto) 7.7 % [place] % (Auto) 7.2 % Eos % (Auto) 0.4 % Baso % (Auto) 0.2 % Immature Gran # (Auto) 0.02 (0.00-0.02) K/uL Neut # (Auto) 9.46 H (1.4-6.5) K/uL Lymph # (Auto) 0.87 L (1.2-3.4) K/uL Deuel # (Auto) 0.81 H (0.11-0.59) K/uL Eos # (Auto) 0.05 (0-0.5) K/uL Baso # (Auto) 0.02 (0-0.2) K/uL PT 10.8 (9.0-12.0) Seconds INR 1.1 (0.9-1.1) APTT 26.9 (21.0-31.0) Seconds PTT Ratio 1.0 Sodium 140 (136-145) mmol/L Potassium 4.3 (3.5-5.1) mmol/L Chloride 105 (98-107) mmol/L Carbon Dioxide 31 (21-32) mmol/L Anion Gap 4.0 (3-11) BUN 46 H (7-18) mg/dl Creatinine 3.53 H (0.6-1.4) mg/dl Est Cr Clr Drug Dosing 22.3 ml/min Est GFR ( Amer) 18.0 Est GFR (Non-Af Amer) 15.5 BUN/Creatinine Ratio 13.1 (10-20) Glucose 141 H (70-99) mg/dl Calcium 8.7 (8.5-10.1) mg/dl Total Bilirubin 0.3 (0.2-1) mg/dl AST 16 (15-37) U/L ALT 26 (12-78) U/L Alkaline Phosphatase 59 (45-117) U/L Troponin I < 0.015 (0-0.045) ng/ml Total Protein 7.4 (6.4-8.2) gm/dl Albumin 3.1 L (3.4-5.0) gm/dl Globulin 4.3 H (2.5-4.0) gm/dl Albumin/Globulin Ratio 0.7 L (0.9-2) Imaging Data Attestation: I personally reviewed and interpreted this imaging study as follows: My Impression: Chest X-ray - read by me Significant congestive heart failure. Cardiomegaly present. Much worse compared to chest X-ray done on July 30. ECG Data Attestation: I personally reviewed and interpreted this ECG as follows: Indication: chest pain Rate (beats per minute): 86 Rhythm: normal sinus Findings: + 1st degree AV block; no acute ischemic change and no ectopy Blood Pressure Blood Pressure Findings: Elevated blood pressure Blood Pressure Disposition: further management by hospitalist MDM Narrative The patient is a 79 year old male who presents to the Emergency Room with complaints of shortness of breath that began around 2 hours ago. The patient describes significant orthopnea over the past couple of hours. However, he has had increasing shortness of breath and cough for which she saw his PCP earlier today and received a Z-Fernando for bronchitis. The patient has been off of his diuretic for some time now because of an elevated creatinine. On physical exam, the patient has obvious evidence of congestive heart failure with rales in his lungs and lower extremity edema along with a description of orthopnea. However, the patient is also wheezing significantly and has a cough. This may represent a bronchitis as well. The patient was hypoxic and will require admission to the hospital. I discussed the case with the hospitalist and they will evaluate for further management. Impression & Plan CHF (congestive heart failure), Hypoxia, Bronchitis Critical Care Time Critical Care Time: Yes Total Critical Care Time: 30 I have personally spent 30 minutes of critical care time in the direct manage ment of this patient. This includes bedside care, interpretation of diagnostic studies, and testing, discussion with consultants, patient, and family members, and other required patient management activities. This 30 minutes is in excess of all separately billable procedures. Discharge Plan Visit Data *Final* Discharge Date/Time: 09/15/19 04:39 Chief Complaint: Shortness of Breath/Dyspnea Stated Complaint: Breathing difficulty ED Provider: Diann Sesay Discharge Problem: CHF (congestive heart failure), Hypoxia, Bronchitis Patient Disposition: Admitted As Inpatient Discharge Instructions Interventions: ED Discharge Assessment Last Done: 09/15/19 04:39 Discharge Problem: CHF (congestive heart failure) Qualifiers: Heart failure type: unspecified Heart failure chronicity: unspecified Qualified Code(s): I50.9 - Heart failure, unspecified The scribe's documentation has been prepared under my direction and personally reviewed by me in its entirety. I confirm that the note above accurately reflects all work, treatment, procedures, and medical decision making performed by me.
--- NOTE | 2019-09-15 17:39 | Hospitalist Progress Note ---
Date of Service September 15, 2019 Assessment & Plan (1) Acute respiratory failure: Presented with acute hypoxemic respiratory failure, SPO2 dropped to 70%, at present on 6 L oxygen via facemask Possible secondary to COPD exacerbation with underlying bronchitis Diffuse wheezing noted in all lung lynch during auscultation patient continue with IV steroids, started with scheduled dose of nebs, empiric antibiotic with Zithromax and Rocephin Chest x-ray 09/15/2019: Interval development of moderate pulmonary edema with suspected small bilateral pleural effusion Appreciate input from cardiology, nephrology Started with IV Lasix drip, Bailey catheter inserted, continue to monitor I's and O's (2) Chronic diastolic heart failure: History of chronic CHF with preserved left ventricular ejection fraction: Echocardiogram in 07/06/2019: Normal LV chamber size with normal ejection fraction 55-60%, mild concentric left ventricular hypertrophy No segmental left wall motion abnormality noted, GRADE 2 DIASTOLIC DYSFUNCTION Aortic valve sclerosis without stenosis Presented with respiratory failure, hypoxia, chest x-ray shows pulmonary vascular congestion with bilateral pleural effusion, Started with IV Lasix drip, monitor (3) CKD (chronic kidney disease), stage IV: Baseline advanced CKD stage IV, status post right upper extremity AV fistula Baseline creatinine 3 Appreciate input from nephrology, started on IV Lasix drip, hold torsemide, avoid nephrotoxin, continue to monitor BMP daily (4) Atrial fibrillation: History of paroxysmal A. fib at present rate controlled on beta-solis: Metoprolol succinate 25 mg p.o. daily Patient was on Coumadin anticoagulation for stroke prophylaxis in past Sustained a fall leading to subdural hematoma with 5 mm midline displacement, patient was sent to [facility], Did not require any surgical intervention other than reversal of coagulopathy Patient has not been on any anticoagulation since Not a candidate for long-term anticoagulation secondary to high fall risk, recent history of subdural hematoma (5) History of subdural hemorrhage: Status post fall leading to subdural hematoma on March 2019: She was asked to transfer to [facility], CT head showed left 1 cm subdural hematoma with 1 mm midline shift left to right, Right-sided small 5 mm subdural hematoma Patient was on Coumadin(for atrial fibrillation) , INR 4, Coagulopathy was reversed with Kcentra and vitamin K At [facility] repeat CAT scan showed stable subdural hematoma, patient did not require any surgical intervention, coagulopathy was reversed Not a candidate for long-term anticoagulation for stroke prophylaxis/A. fib Observe fall precaution, CODE STATUS: DNR/DNI Disposition: Lives with daughter at home, PT OT evaluation will be requested prior to discharge home Subjective Patient had diffuse wheeze, coarse cough, shortness of breath On 6 L oxygen via oxygen mask Afebrile, No fever or chills And appears to be lethargic, opens eyes, with voice, does mention that having trouble taking deep breath Daughter and son-in-law present at bedside Physical Exam Constitutional: + ill appearing and + obese Eyes: + anicteric sclerae ENMT: Mouth: + oral mucosal abnormality (Dry oral mucosa) Neck: trachea midline, no thyromegaly Respiratory: Auscultation: + diminished lung sounds, + rales, + rhonchi and + wheezes Cardiovascular: Rate/Rhythm: regular rate and regular rhythm Extremities: no pedal edema Gastrointestinal (Abdomen): Percussion/Palpation: abdomen soft; abdomen nontender Musculoskeletal: no cyanosis or clubbing, extremities motor strength 5/5 Skin: no rashes, warm and dry Neurologic: PERRL, EOMI, accommodation nl, no face palsy, no dysarthria Results & Data Vital Signs (Past 12 Hours) Vital Signs Temp Pulse Pulse Resp BP Pulse Ox 09/15/19 15:49 68 18 97 09/15/19 15:25 36.9 C 69 20 135/68 96 09/15/19 11:15 36.5 C 72 20 156/76 H 94 09/15/19 11:10 72 18 94 09/15/19 07:52 37.1 C 87 18 156/73 H 90 09/15/19 06:53 89 18 90 (1) Acute respiratory failure Respiratory failure complication: hypoxia Qualified Code(s): J96.01 - Acute r espiratory failure with hypoxia (2) Atrial fibrillation Atrial fibrillation type: paroxysmal Qualified Code(s): I48.0 - Paroxysmal atrial fibrillation
[2019-09-15] MEDS: LOVASTATIN 20 MG TAB PO SCH (20:44)
[2019-09-16] MEDS: IPRATROPIUM BROMIDE NEB SOLN 0.02% 2.5 ML VIAL INH SCH ×6 (02:35→23:06)
[2019-09-16] MEDS: LEVALBUTEROL HCL 1.25 MG/3 ML NEB NEB SCH ×4 (02:36→15:18)
[2019-09-16] MEDS: methylPREDNISolone 40 MG in SYRINGE 0 ML IV SCH ×3 (03:51→21:14)
[2019-09-16 06:00] LABS: Hematocrit (blood only) 31.5 % (42-52); Hemoglobin 10.4 g/dL (14.0-18.0); Immature Granulocytes # (auto) 0.03 K/uL (0.00-0.02); Immature Granulocytes % (auto) 0.3 %; Lymphocytes # (auto) 0.44 K/uL (1.2-3.4); Lymphocytes % (auto) 3.7 %; Mean Corpuscular Hemoglobin 29.9 pg (25-34); Mean Corpuscular Volume 90.5 fL (80-100); Mean Platelet Volume 10.1 fL (7.4-10.4); Monocytes # (auto) 0.41 K/uL (0.11-0.59); Monocytes % (auto) 3.5 %; Neutrophils # (auto) 10.92 K/uL (1.4-6.5); Neutrophils % (auto) 92.5 %; Platelet Count 222 K/uL (130-400); RDW Coefficient of Variation 14.7 % (11.5-14.5); RDW Standard Deviation 48.7 fL (36.4-46.3); Red Blood Count 3.48 M/uL (4.7-6.1)
[2019-09-16 06:28] LABS: BUN Creatinine Ratio 17.1 (10-20); Calcium 8.2 mg/dl (8.5-10.1); Creatinine Clr Calc Pharmacy 19.2 ml/min; Est GFR (African American) 15.3; Est GFR (Non-African American) 13.2; Magnesium 2.1 mg/dl (1.8-2.4); Potassium 4.9 mmol/L (3.5-5.1)
[2019-09-16] MEDS ORDERED: PHARMACY GLYCEMIC MGMT CONSULT PRN (07:55)
[2019-09-16] MEDS: AMLODIPINE BESYLATE 5 MG TAB PO SCH (08:39)
[2019-09-16] MEDS: METOPROLOL SUCC 25MG EXT REL TAB PO SCH (08:39)
[2019-09-16] MEDS: AZITHROMYCIN 250 MG TAB PO SCH (08:39)
[2019-09-16] MEDS: levETIRAcetam 500 MG TAB PO SCH ×2 (08:39→21:10)
[2019-09-16] MEDS: FERROUS SULFATE 325 MG TAB PO SCH ×2 (08:40→21:08)
[2019-09-16] MEDS: INSULIN ASPART 100 UNITS/ML 3 ML PEN SC SCH ×4 (08:41→21:12)
[2019-09-16] MEDS ORDERED: INSULIN GLARGINE SOLOSTAR 100 UNITS/ML 3 ML PEN SC SCH (09:00)
[2019-09-16] MEDS ORDERED: INSULIN HUMAN REGULAR PER UNIT 10 UNITS in SYRINGE 9.9 ML IV ONE (09:30)
[2019-09-16] MEDS ORDERED: INSULIN GLARGINE SOLOSTAR 100 UNITS/ML 3 ML PEN SC ONE (09:45)
[2019-09-16] MEDS: cefTRIAXone SODIUM 2,000 MG in DEXTROSE 5% 50 ML IV SCH (10:21)
[2019-09-16] MEDS: FUROSEMIDE 80 MG in SYRINGE 0 ML IV SCH ×2 (10:22→21:11)
--- NOTE | 2019-09-16 10:52 | Pharmacy Report ---
Pharmacy Glycemic Short Note 2 - Date of Service September 16, 2019 - Glycemic Short BSG Results (Last 24 hours): 09/15/19 09/15/19 09/15/19 11:54 16:34 20:39 Glucose POC Glucose 248 H 271 H 253 H 09/16/19 09/16/19 05:33 07:11 Glucose 278 H POC Glucose 353 H* OUTPATIENT ANTIDIABETIC REGIMEN: * Glipizide 10 mg PO BID * A1c = 6.6% (09/15/19) ASSESSMENT: * 79 yr old T2DM male admitted with acute respiratory failure likely secondary to COPD exacerbation, bronchitis. Patient is experiencing severe hyperglycemia secondary to high dose IV steroids. He is currently receiving solu medrol 40 m g IV q8h. He is well controlled as an outpatient on glipizide. * Mr. Yuan received Lantus 5 units BID yesterday. His fasting BSG was 353 mg/dL this morning. I will increase his basal insulin to a total of 40 units this morning then dose per BSG scale. I have also ordered a one time IV regular insulin 10 unit bolus. * Continue Novolog based on weight and stress of 3. PLAN FOR INPATIENT GLYCEMIC CONTROL: * Hold outpatient oral diabetes medications * Basal insulin * Lantus 40 units SQ this AM, then per scale BID: * 8 units for BSG less than 140 mg/dL * 16 units for BSG 140 - 180 mg/dL * 23 units for BSG greater than 180 mg/dL * Bolus insulin * NovoLog per scale ACHS or Q6hrs while NPO * Goal Range: Low 100 mg/dL - High 140 mg/dL * Correction Factor: 15 mg/dL/unit * Nutritional / Prandial insulin per carb ratio of 1 unit per 5 grams CHO consumed PLAN FOR DISCHARGE: * A1c of 6.6% is at goal * May resume outpatient regimen of glipizide. If patient is discharged on steroids, outpatient will require adjustment.
[2019-09-16] MEDS ORDERED: INSULIN HUMAN REGULAR IV BOLUS 4.5 UNITS in SYRINGE 0 ML IV ONE (12:15)
[2019-09-16] MEDS ORDERED: INSULIN REGULAR 250 UNITS in SODIUM CHLORIDE 0.9% 247.5 ML IV SCH (12:15)
[2019-09-16] MEDS: SODIUM CHLORIDE 0.9% 500 ML IV SCH (14:00)
--- NOTE | 2019-09-16 15:52 | Hospitalist Progress Note ---
Date of Service September 16, 2019 Assessment & Plan (1) Acute respiratory failure: Symptom markedly improved, with nebulizer treatment, pulmonary tolerating Getting ongoing diuresis with IV Lasix On 3 L oxygen via nasal cannula, plan to wean down oxygen gradually to keep SPO2 above 90% Will need home oxygen requirement testing/two-step exercise prior to discharge Minimum wheeze noted on lung auscultation, will start to wean down IV steroids, Changed to Solu-Medrol 40 mg every 12 Transition to p.o. prednisone 40 mg daily tomorrow Presented with acute hypoxemic respiratory failure, SPO2 dropped to 70%, at present on 6 L oxygen via facemask Possible secondary to COPD exacerbation with underlying bronchitis Diffuse wheezing noted in all lung lnych during auscultation patient continue with IV steroids, started with scheduled dose of nebs, empiric antibiotic with Zithromax and Rocephin Chest x-ray 09/15/2019: Interval development of moderate pulmonary edema with suspected small bilateral pleural effusion Appreciate input from cardiology, nephrology Started with IV Lasix drip, Bailey catheter inserted, continue to monitor I's and O's Hyperglycemia: Type 2 diabetes Type 2 diabetes on oral meds, well-controlled hemoglobin A1c 6.6 Blood sugar elevated more than 300 secondary to IV steroids Appreciate input from pharmacy, started with IV insulin drip Expected blood sugar to be improved as IV steroids is weaned down (2) Chronic diastolic heart failure: History of chronic CHF with preserved left ventricular ejection fraction: Echocardiogram in 07/06/2019: Normal LV chamber size with normal ejection fraction 55-60%, mild concentric left ventricular hypertrophy No segmental left wall motion abnormality noted, GRADE 2 DIASTOLIC DYSFUNCTION Aortic valve sclerosis without stenosis Presented with respiratory failure, hypoxia, chest x-ray shows pulmonary vascular congestion with bilateral pleural effusion, Started with IV Lasix drip, Volume status remains stable (3) CKD (chronic kidney disease), stage IV: Baseline advanced CKD stage IV, status post right upper extremity AV fistula Baseline creatinine 3 Appreciate input from nephrology, started on IV Lasix drip, hold torsemide, avoid nephrotoxin, continue to monitor BMP daily (4) Atrial fibrillation: History of paroxysmal A. fib at present rate controlled on beta-solis: Metoprolol succinate 25 mg p.o. daily Patient was on Coumadin anticoagulation for stroke prophylaxis in past Sustained a fall leading to subdural hematoma with 5 mm midline displacement, patient was sent to [facility], Did not require any surgical intervention other than reversal of coagulopathy Patient has not been on any anticoagulation since Not a candidate for long-term anticoagulation secondary to high fall risk, recent history of subdural hematoma (5) History of subdural hemorrhage: Status post fall leading to subdural hematoma on March 2019: She was asked to transfer to [facility], CT head showed left 1 cm subdural hematoma with 1 mm midline shift left to right, Right-sided small 5 mm subdural hematoma Patient was on Coumadin(for atrial fibrillation) , INR 4, Coagulopathy was reversed with Kcentra and vitamin K At [facility] repeat CAT scan showed stable subdural hematoma, patient did not require any surgical intervention, coagulopathy was reversed Not a candidate for long-term anticoagulation for stroke prophylaxis/A. fib Observe fall precaution, CODE STATUS: DNR/DNI Disposition: Lives with daughter ( manish ) at home, PT OT evaluation requested Social service following for discharge planning Subjective Patient reports breathing much better today, sitting up on side of bed, cough has improved no shortness of breath no orthopnea Still requiring oxygen, at present 3 L via nasal cannula only no fever or chills Continues to have significant diuresis with IV Lasix drip Wake and alert oriented x3, no confusion Conversing appropriately Review of Systems Review of Systems: All systems reviewed & are unremarkable except as noted in HPI & below Physical Exam Constitutional: + obese; no acute distress Eyes: + anicteric sclerae Neck: trachea midline, no thyromegaly Respiratory: Auscultation: + wheezes Cardiovascular: Rate/Rhythm: regular rate and regular rhythm Extremities: no pedal edema Gastrointestinal (Abdomen): Percussion/Palpation: abdomen soft; abdomen nontender Musculoskeletal: no cyanosis or clubbing, extremities motor strength 5/5 Skin: no rashes, warm and dry Neurologic: PERRL, EOMI, accommodation nl, no face palsy, no dysarthria Psychiatric: A+Ox3, euthymic affect Results & Data Vital Signs (Past 12 Hours) Vital Signs Temp Pulse Resp BP Pulse Ox 09/16/19 15:24 64 20 97 09/16/19 11:45 36.6 C 73 24 119/61 97 09/16/19 11:11 67 18 99 09/16/19 08:20 98 09/16/19 08:15 81 L 09/16/19 07:13 36.7 C 76 19 132/56 L 98 09/16/19 07:12 67 20 98 09/16/19 05:38 36.7 C 71 20 129/70 99 (1) Acute respiratory failure Respiratory failure complication: hypoxia Qualified Code(s): J96.01 - Acute respiratory failure with hypoxia (2) Atrial fibrillation Atrial fibrillation type: paroxysmal Qualified Code(s): I48.0 - Paroxysmal atrial fibrillation
[2019-09-16] MEDS: LEVALBUTEROL 1.25MG/0.5ML NEB NEB SCH ×2 (19:05→23:06)
[2019-09-16] MEDS: INSULIN GLARGINE SOLOSTAR 100 UNITS/ML 3 ML PEN SC SCH ×2 (21:10→21:46)
[2019-09-16] MEDS: LOVASTATIN 20 MG TAB PO SCH (21:12)
[2019-09-17] MEDS ORDERED: INSULIN ASPART 100 UNITS/ML 3 ML PEN SC SCH
[2019-09-17] MEDS: IPRATROPIUM BROMIDE NEB SOLN 0.02% 2.5 ML VIAL INH SCH ×6 (03:10→23:44)
[2019-09-17] MEDS: LEVALBUTEROL 1.25MG/0.5ML NEB NEB SCH ×6 (03:10→23:43)
[2019-09-17] MEDS: INSULIN GLARGINE SOLOSTAR 100 UNITS/ML 3 ML PEN SC SCH ×2 (08:20→20:46)
[2019-09-17] MEDS: INSULIN ASPART 100 UNITS/ML 3 ML PEN SC SCH ×4 (08:21→20:45)
[2019-09-17] MEDS: AZITHROMYCIN 250 MG TAB PO SCH (08:22)
[2019-09-17] MEDS: levETIRAcetam 500 MG TAB PO SCH ×2 (08:22→20:39)
[2019-09-17] MEDS: METOPROLOL SUCC 25MG EXT REL TAB PO SCH (08:22)
[2019-09-17] MEDS: AMLODIPINE BESYLATE 5 MG TAB PO SCH (08:22)
[2019-09-17] MEDS: FERROUS SULFATE 325 MG TAB PO SCH ×2 (08:22→20:38)
[2019-09-17] MEDS: methylPREDNISolone 40 MG in SYRINGE 0 ML IV SCH (08:26)
[2019-09-17] MEDS: FUROSEMIDE 80 MG in SYRINGE 0 ML IV SCH ×2 (08:26→20:40)
[2019-09-17] MEDS: cefTRIAXone SODIUM 2,000 MG in DEXTROSE 5% 50 ML IV SCH (08:26)
--- NOTE | 2019-09-17 15:51 | Progress Note ---
DATE: 09/17/2019 No new issues noted. He is making urine about 2 liter with the current dose of Lasix which is 80 mg IV twice daily. He feels his breathing is slightly better. PHYSICAL EXAMINATION: GENERAL: He is awake, alert, oriented x3. HEENT: Mucous membrane moist. NECK: Supple. No jugular venous distention. CHEST: Bilateral decreased breath sounds. CARDIOVASCULAR: S1, S2, regular. Soft systolic murmur heard. ABDOMEN: Soft, nontender, obese. EXTREMITIES: Shows 1+ edema. He does have a Bailey catheter. LABORATORY TEST: Did not have labs today. Reviewed labs from yesterday. ASSESSMENT AND PLAN: The patient is a 79-year-old male with chronic kidney disease stage V, who already has an AV fistula in place, presented with shortness of breath, congestive heart failure. He is now getting IV Lasix and with that he is making urine and seems to be getting better slowly. I would continue with the Lasix as it is, which is 80 mg twice daily. Continue to monitor input and output and he will need labs done in the morning tomorrow.
--- NOTE | 2019-09-17 15:54 | Pharmacy Report ---
Pharmacy Glycemic Short Note 2 - Date of Service September 17, 2019 - Glycemic Short BSG Results (Last 24 hours): 09/16/19 09/16/19 09/16/19 13:38 14:43 15:43 POC Glucose 301 H* 203 H 155 H 09/16/19 09/16/19 09/16/19 16:30 17:46 18:43 POC Glucose 110 H 114 H 155 H 09/16/19 09/16/19 09/16/19 20:07 21:25 22:43 POC Glucose 114 H 100 H 95 09/17/19 09/17/19 07:41 11:29 POC Glucose 164 H 224 H OUTPATIENT ANTIDIABETIC REGIMEN: * Glipizide 10 mg PO BID * A1c = 6.6% (09/15/19) ASSESSMENT: 09/17/19 * Mr. Yuan received 86 units of SQ insulin yesterday overlapped with an IV insulin infusion. Infusion was discontinued 09/17 around 0300. * He continues to require significant doses of insulin due to steroid induced hyperglycemia; he was given solu medrol 40 mg IV this morning, then starting prednisone 40 mg daily on 09/18. * Fasting BSG of 164 mg/dL remains above goal however this is greatly improved. Continue Lantus dose per scale for today. * Lunch BSG is above goal, therefore Novolog carb coverage was tightened. * Insulin dosing will be reassessed tomorrow morning due to change in steroid dosing. 09/16/19 * 79 yr old T2DM male admitted with acute respiratory failure likely secondary to COPD exacerbation, bronchitis. Patient is experiencing severe hyperglycemia secondary to high dose IV steroids. He is currently receiving solu medrol 40 mg IV q8h. He is well controlled as an outpatient on glipizide. * Mr. Yuan received Lantus 5 units BID yesterday. His fasting BSG was 353 mg/dL this morning. I will increase his basal insulin to a total of 40 units this morning then dose per BSG scale. I have also ordered a one time IV regular insulin 10 unit bolus. * Continue Novolog based on weight and stress of 3. PLAN FOR INPATIENT GLYCEMIC CONTROL: * Hold outpatient oral diabetes medications * Basal insulin * Lantus SQ per scale BID: * 8 units for BSG less than 140 mg/dL * 16 units for BSG 140 - 180 mg/dL * 23 units for BSG greater than 180 mg/dL * Bolus insulin - tighten carb coverage * NovoLog per scale ACHS or Q6hrs while NPO * Goal Range: Low 100 mg/dL - High 140 mg/dL * Correction Factor: 15 mg/dL/unit * Nutritional / Prandial insulin per carb ratio of 1 unit per 4 grams CHO consumed PLAN FOR DISCHARGE: * A1c of 6.6% is at goal * May resume outpatient regimen of glipizide. If patient is discharged on steroids, outpatient will require adjustment.
--- NOTE | 2019-09-17 16:17 | Hospitalist Progress Note ---
Date of Service September 17, 2019 Assessment & Plan (1) Acute respiratory failure: Symptom markedly improved, with nebulizer treatment, pulmonary tolerating IV Lasix drip discontinued, patient is transition to Lasix 80 mg twice daily Supplemental oxygen weaned down to 2 L via nasal cannula with a goal of SPO2 between 90% Will need home oxygen requirement testing/two-step exercise ordered for tomorrow No audible wheeze, no respiratory distress, IV Solu-Medrol discontinued Transition to p.o. prednisone 40 mg daily today Presented with acute hypoxemic respiratory failure, SPO2 dropped to 70%, at present on 6 L oxygen via facemask Possible secondary to COPD exacerbation with underlying bronchitis Diffuse wheezing noted in all lung lynch during auscultation patient continue with IV steroids, started with scheduled dose of nebs, empiric antibiotic with Zithromax and Rocephin Chest x-ray 09/15/2019: Interval development of moderate pulmonary edema with suspected small bilateral pleural effusion Appreciate input from cardiology, nephrology Started with IV Lasix drip, Bailey catheter inserted, continue to monitor I's and O's Hyperglycemia: Type 2 diabetes Type 2 diabetes on oral meds, well-controlled hemoglobin A1c 6.6 Had hypoglycemic episode secondary to IV steroids, required transiently on IV insulin drip Patient input from pharmacy Patient is off insulin drip back on basal Lantus insulin sliding scale as IV Solu-Medrol dose was decreased IV steroids discontinued today transition to p.o. prednisone Will discuss with pharmacy for adjustment of patient diabetic regimen as patient will need slow taper of prednisone on discharge (2) Chronic diastolic heart failure: History of chronic CHF with preserved left ventricular ejection fraction: Echocardiogram in 07/06/2019: Normal LV chamber size with normal ejection fraction 55-60%, mild concentric left ventricular hypertrophy No segmental left wall motion abnormality noted, GRADE 2 DIASTOLIC DYSFUNCTION Aortic valve sclerosis without stenosis Presented with respiratory failure, hypoxia, chest x-ray shows pulmonary vascular congestion with bilateral pleural effusion, Was treated with IV Lasix drip, discontinued On IV Lasix 80 mg twice daily Volume status remains stable (3) CKD (chronic kidney disease), stage IV: Baseline advanced CKD stage IV, status post right upper extremity AV fistula Baseline creatinine 3 Appreciate input from nephrology, Diuretics changed to Lasix 80 mg twice daily (4) Atrial fibrillation: History of paroxysmal A. fib at present rate controlled on beta-solis: Metoprolol succinate 25 mg p.o. daily Patient was on Coumadin anticoagulation for stroke prophylaxis in past Sustained a fall leading to subdural hematoma with 5 mm midline displacement, patient was sent to [facility], Did not require any surgical intervention other than reversal of coagulopathy Patient has not been on any anticoagulation since Not a candidate for long-term anticoagulation secondary to high fall risk, recent history of subdural hematoma (5) History of subdural hemorrhage: Status post fall leading to subdural hematoma on March 2019: She was asked to transfer to [facility], CT head showed left 1 cm subdural hematoma with 1 mm midline shift left to right, Right-sided small 5 mm subdural hematoma Patient was on Coumadin(for atrial fibrillation) , INR 4, Coagulopathy was reversed with Kcentra and vitamin K At [facility] repeat CAT scan showed stable subdural hematoma, patient did not require any surgical intervention, coagulopathy was reversed Not a candidate for long-term anticoagulation for stroke prophylaxis/A. fib Observe fall precaution, CODE STATUS: DNR/DNI Disposition: Lives with daughter ( manish ) at home, PT OT evaluation requested Social service following for discharge planning ordered for two-step exercise tomorrow morning, Possible discharge home with home health home PT if patient continues to do well clinically Subjective Patient is sitting up on chair, no orthopnea, has been minimal shortness of breath, was able to walk on the hallway independently, at present requiring 2 L oxygen, no lower extremity swelling, no fever chills no cough Physical Exam Constitutional: + obese; no acute distress Eyes: + anicteric sclerae ENMT: Mouth: + oral mucosal abnormality (Dry oral mucosa) Neck: trachea midline, no thyromegaly Respiratory: Auscultation: + wheezes Cardiovascular: Rate/Rhythm: regular rate and regular rhythm Extremities: no pedal edema Gastrointestinal (Abdomen): Percussion/Palpation: abdomen soft; abdomen nontender Musculoskeletal: no cyanosis or clubbing, extremities motor strength 5/5 Skin: no rashes, warm and dry Neurologic: PERRL, EOMI, accommodation nl, no face palsy, no dysarthria Psychiatric: A+Ox3, euthymic affect Results & Data Vital Signs (Past 12 Hours) Vital Signs Temp Pulse Pulse Resp BP Pulse Ox Pulse Ox 09/17/19 16:08 36.5 C 53 L 22 125/52 L 95 09/17/19 15:29 51 L 14 96 09/17/19 14:32 96 09/17/19 11:31 36.6 C 67 20 137/63 96 09/17/19 11:00 84 16 94 09/17/19 08:00 74 09/17/19 07:37 36.6 C 69 18 154/66 H 92 09/17/19 07:13 79 18 85 L 09/17/19 05:29 36.5 C 69 22 132/60 90 (1) Acute respiratory failure Respiratory failure complication: hypoxia Qualified Code(s): J96.01 - Acute respiratory failure with hypoxia (2) Atrial fibrillation Atrial fibrillation type: paroxysmal Qualified Code(s): I48.0 - Paroxysmal atrial fibrillation
[2019-09-17] MEDS: LOVASTATIN 20 MG TAB PO SCH (20:40)
[2019-09-17] MEDS: SODIUM CHLORIDE 0.9% 500 ML IV SCH (21:46)
[2019-09-18] MEDS ORDERED: INSULIN ASPART 100 UNITS/ML 3 ML PEN SC SCH
[2019-09-18] MEDS: LEVALBUTEROL 1.25MG/0.5ML NEB NEB SCH ×6 (03:38→22:49)
[2019-09-18] MEDS: IPRATROPIUM BROMIDE NEB SOLN 0.02% 2.5 ML VIAL INH SCH ×6 (03:38→22:48)
[2019-09-18] MEDS: INSULIN ASPART 100 UNITS/ML 3 ML PEN SC SCH ×4 (07:43→20:35)
[2019-09-18] MEDS: FERROUS SULFATE 325 MG TAB PO SCH ×2 (07:44→20:36)
[2019-09-18] MEDS: AZITHROMYCIN 250 MG TAB PO SCH (07:44)
[2019-09-18] MEDS: levETIRAcetam 500 MG TAB PO SCH ×2 (07:45→20:37)
[2019-09-18] MEDS: METOPROLOL SUCC 25MG EXT REL TAB PO SCH (07:45)
[2019-09-18] MEDS: AMLODIPINE BESYLATE 5 MG TAB PO SCH (07:45)
[2019-09-18] MEDS: predniSONE 20 MG TAB PO SCH (07:45)
[2019-09-18] MEDS: FUROSEMIDE 80 MG in SYRINGE 0 ML IV SCH ×3 (07:47→17:56)
[2019-09-18] MEDS ORDERED: INSULIN HUMAN NPH SC SCH (08:00)
--- NOTE | 2019-09-18 08:29 | Pharmacy Report ---
Pharmacy Glycemic Short Note 2 - Date of Service September 18, 2019 - Glycemic Short BSG Results (Last 24 hours): 09/17/19 09/17/19 09/17/19 11:29 16:48 20:41 POC Glucose 224 H 226 H 364 H* 09/17/19 20:42 POC Glucose 361 H* OUTPATIENT ANTIDIABETIC REGIMEN: * Glipizide 10 mg PO BID * A1c = 6.6% (09/15/19) ASSESSMENT: 09/18/19 * BSGs climbed into the mid-300s last evening despite aggressive SQ insulin doses * In total 103 units of SQ insulin administered yesterday * Fasting BSG 249 this AM with 39 units basal insulin on board * Today steroid regimen with change to Prednisone 40mg daily, thus hyperglycemia likely to continue this AM + into this afternoon * Will use NPH insulin, timed w/ Prednisone to help combat hyperglycemia induced by this steroid. * Novolog CF and CR will be continued at this time w/ reassessment later today. * Overnight BSG checks would be beneficial for added correctional insulin if the current orders fall short 09/17/19 * Mr. Yuan received 86 units of SQ insulin yesterday overlapped with an IV insulin infusion. Infusion was discontinued 09/17 around 0300. * He continues to require significant doses of insulin due to steroid induced hyperglycemia; he was given solu medrol 40 mg IV this morning, then starting prednisone 40 mg daily on 09/18. * Fasting BSG of 164 mg/dL remains above goal however this is greatly improved. Continue Lantus dose per scale for today. * Lunch BSG is above goal, therefore Novolog carb coverage was tightened. * Insulin dosing will be reassessed tomorrow morning due to change in steroid dosing. 09/16/19 * 79 yr old T2DM male admitted with acute respiratory failure likely secondary to COPD exacerbation, bronchitis. Patient is experiencing severe hyperglycemia secondary to high dose IV steroids. He is currently receiving solu medrol 40 mg IV q8h. He is well controlled as an outpatient on glipizide. * Mr. Yuan received Lantus 5 units BID yesterday. His fasting BSG was 353 mg/dL this morning. I will increase his basal insulin to a total of 40 units this morning then dose per BSG scale. I have also ordered a one time IV regular insulin 10 unit bolus. * Continue Novolog based on weight and stress of 3. PLAN FOR INPATIENT GLYCEMIC CONTROL: * Hold outpatient oral diabetes medications * Basal insulin * NPH 40 units SQ Q AM w/ prednisone dose * Bolus insulin * NovoLog per scale ACHS + 0000,[id number] * Goal Range: Low 110 mg/dL - High 140 mg/dL * Correction Factor: 15 mg/dL/unit * Nutritional / Prandial insulin per carb ratio of 1 unit per 4 grams CHO consumed PLAN FOR DISCHARGE: * A1c of 6.6% is at goal * May resume outpatient regimen of glipizide. If patient is discharged on steroids, outpatient regimen will require adjustment (possibly the addition of NPH w/ AM prednisone?)
[2019-09-18 09:07] LABS: BUN Creatinine Ratio 23.4 (10-20); Calcium 8.2 mg/dl (8.5-10.1); Creatinine Clr Calc Pharmacy 19.3 ml/min; Est GFR (African American) 15.1
[2019-09-18] MEDS ORDERED: DEXTROSE 50% 50 ML SYRINGE IV PRN (12:00)
[2019-09-18] MEDS ORDERED: GLUCAGON FOR INJ 1 MG VIAL IM PRN (12:00)
[2019-09-18] MEDS ORDERED: GLUCOSE 40% GEL 15 GM TUBE PO PRN (12:00)
[2019-09-18] MEDS ORDERED: GLUCOSE 10 TABS/TUBE PO PRN (12:00)
[2019-09-18] MEDS ORDERED: CARBOHYDRATES FOR HYPOGLYCEMIA PO PRN (12:00)
[2019-09-18] MEDS ORDERED: DOXYCYCLINE HYCLATE 100 MG CAP PO SCH (13:20)
--- NOTE | 2019-09-18 13:20 | Hospitalist Progress Note ---
Date of Service September 18, 2019 Assessment & Plan (1) Acute respiratory failure: Symptom markedly improved, with nebulizer treatment, pulmonary tolerating IV Lasix drip discontinued, patient is transition to Lasix 80 mg twice daily Supplemental oxygen weaned down to 2 L via nasal cannula with a goal of SPO2 between 90% Will need home oxygen requirement testing/two-step exercise ordered for tomorrow No audible wheeze, no respiratory distress, IV Solu-Medrol discontinued Transition to p.o. prednisone 40 mg daily , for 5 days Presented with acute hypoxemic respiratory failure, SPO2 dropped to 70%, at present on 6 L oxygen via face mask Possible secondary to COPD exacerbation with underlying bronchitis Diffuse wheezing noted in all lung lynch during auscultation patient continue with IV steroids, started with scheduled dose of nebs, empiric antibiotic with Zithromax and Rocephin Chest x-ray 09/15/2019: Interval development of moderate pulmonary edema with suspected small bilateral pleural effusion Appreciate input from cardiology, nephrology Hyperglycemia: Type 2 diabetes Type 2 diabetes on oral meds, well-controlled hemoglobin A1c 6.6 Had hypoglycemic episode secondary to IV steroids, required transiently on IV insulin drip Patient input from pharmacy Insulin drip discontinued On IV sliding scale and Lantus (2) Chronic diastolic heart failure: History of chronic CHF with preserved left ventricular ejection fraction: Echocardiogram in 07/06/2019: Normal LV chamber size with normal ejection fraction 55-60%, mild concentric left ventricular hypertrophy No segmental left wall motion abnormality noted, GRADE 2 DIASTOLIC DYSFUNCTION Aortic valve sclerosis without stenosis Presented with respiratory failure, hypoxia, chest x-ray shows pulmonary vascular congestion with bilateral pleural effusion, Was treated with IV Lasix drip, discontinued On IV Lasix 80 mg twice daily Volume status remains stable (3) CKD (chronic kidney disease), stage IV: Baseline advanced CKD stage IV, status post right upper extremity AV fistula Baseline creatinine 3 Appreciate input from nephrology, Diuretics changed to Lasix 80 mg twice daily (4) Atrial fibrillation: History of paroxysmal A. fib at present rate controlled on beta-solis: Metoprolol succinate 25 mg p.o. daily Patient was on Coumadin anticoagulation for stroke prophylaxis in past Sustained a fall leading to subdural hematoma with 5 mm midline displacement, patient was sent to [facility], Did not require any surgical intervention other than reversal of coagulopathy Patient has not been on any anticoagulation since Not a candidate for long-term anticoagulation secondary to high fall risk, recent history of subdural hematoma (5) History of subdural hemorrhage: Status post fall leading to subdural hematoma on March 2019: She was asked to transfer to [facility], CT head showed left 1 cm subdural hematoma with 1 mm midline shift left to right, Right-sided small 5 mm subdural hematoma Patient was on Coumadin(for atrial fibrillation) , INR 4, Coagulopathy was reversed with Kcentra and vitamin K At [facility] repeat CAT scan showed stable subdural hematoma, patient did not require any surgical intervention, coagulopathy was reversed Not a candidate for long-term anticoagulation for stroke prophylaxis/A. fib Observe fall precaution, CODE STATUS: DNR/DNI Disposition: Lives with daughter ( manish ) at home, PT OT evaluation requested Social service following for discharge planning ordered for two-step exercise : Does not need home O2 Possible discharge home with home health home PT if patient continues to do well clinically Subjective More short of breath and tired today Two-step exercise shows no significant desaturation noted on ambulation Per nursing patient does have desaturation during sleeping Nocturnal pulse oximetry ordered Hold discharge home today Daughter present at bedside updated Physical Exam Constitutional: + obese; no acute distress Eyes: + anicteric sclerae ENMT: Mouth: + oral mucosal abnormality (Dry oral mucosa) Neck: trachea midline, no thyromegaly Respiratory: Auscultation: + wheezes Cardiovascular: Rate/Rhythm: regular rate and regular rhythm Extremities: no pedal edema Gastrointestinal (Abdomen): Percussion/Palpation: abdomen soft; abdomen nontender Musculoskeletal: no cyanosis or clubbing, extremities motor strength 5/5 Skin: no rashes, warm and dry Neurologic: PERRL, EOMI, accommodation nl, no face palsy, no dysarthria Psychiatric: A+Ox3, euthymic affect Results & Data Vital Signs (Past 12 Hours) Vital Signs Temp Pulse Pulse Pulse Pulse Pulse Resp 09/18/19 11:28 67 18 09/18/19 09:20 74 09/18/19 09:15 63 67 63 09/18/19 07:03 74 18 09/18/19 07:00 36.6 C 69 19 09/18/19 03:30 36.5 C 70 19 Resp Resp Resp BP Pulse Ox Pulse Ox Pulse Ox 09/18/19 11:28 90 09/18/19 09:20 09/18/19 09:15 20 20 18 89 L 93 09/18/19 07:03 93 09/18/19 07:00 151/56 H 93 09/18/19 03:30 139/60 95 Pulse Ox 09/18/19 11:28 09/18/19 09:20 09/18/19 09:15 95 09/18/19 07:03 09/18/19 07:00 09/18/19 03:30 (1) Acute respiratory failure Respiratory failure complication: hypoxia Qualified Code(s): J96.01 - Acute respiratory failure with hypoxia (2) Atrial fibrillation Atrial fibrillation type: paroxysmal Qualified Code(s): I48.0 - Paroxysmal atrial fibrillation
[2019-09-18] MEDS ORDERED: FUROSEMIDE 80 MG in SYRINGE 0 ML IV ONE (18:00)
[2019-09-18] MEDS: LOVASTATIN 20 MG TAB PO SCH (20:37)
[2019-09-18] MEDS: DOXYCYCLINE HYCLATE 100 MG CAP PO SCH (21:19)
--- NOTE | 2019-09-18 23:27 | Nephrology Progress Note ---
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 Baseline creatinine in the low threes for the past 2 months. He has 4 g of proteinuria. He presented with acute hypoxic respiratory failure of multifactorial etiology and has been aggressively diuresed. His electrolytes are stable. creatinine hanging at 4 for past 2 days in setting of aggressive diuresis. He has an AV fistula which has a high-pitched sound and will need intervention before use. I do not think he needs dialysis imminently. -Avoid nephrotoxins such as NSAIDs and contrast. -cont current 80 iv bid lasix > look to change to po soon -dialy bmp (2) Chronic diastolic heart failure: Patient with diastolic CHF. cont IV Lasix and monitor input output. ordered fluid restriction of 1.8 L daily. Appreciate recommendations from cardiology; daily standing wts pls Subjective pt seen on evening rounds at about 1745; some labile BG today; eating well; standing/movign to toilet but minimal ambulation; denies sob; denies edema; denies chest pain/palpitations; denies rash Review of Systems Review of Systems: All systems reviewed & are unremarkable except as noted in HPI & below Physical Exam Constitutional: well developed and well nourished sitting in chair on RA Eyes: EOM intact bilaterally ENMT: Ears: no external ear abnormality Nose: no external nose abnormality Mouth: + dry oral mucous membranes Neck: no nuchal rigidity Respiratory: normal respiratory effort Auscultation: + diminished lung sounds Cardiovascular: Rate/Rhythm: regular rate and regular rhythm Extremities: + edema (trace BLE) Gastrointestinal (Abdomen): Inspection/Auscultation: normal bowel sounds Percussion/Palpation: abdomen soft; abdomen nontender Musculoskeletal: Extremities: strength 5/5 throughout Skin: no rashes, warm and dry Neurologic: valle, fluent speech, no tremor Psychiatric: A+Ox3, euthymic affect Results & Data Vital Signs (Past 12 Hours) Vital Signs Temp Pulse Pulse Resp BP Pulse Ox Pulse Ox 09/18/19 20:17 61 18 92 09/18/19 19:55 65 92 09/18/19 19:31 36.9 C 69 20 140/59 L 94 09/18/19 15:39 53 L 18 95 09/18/19 15:15 36.8 C 65 20 120/63 90 09/18/19 11:28 67 18 90 Laboratory Results 09/16/19 05:33 09/18/19 08:38
[2019-09-19] MEDS: LEVALBUTEROL 1.25MG/0.5ML NEB NEB SCH ×4 (02:36→15:16)
[2019-09-19] MEDS: IPRATROPIUM BROMIDE NEB SOLN 0.02% 2.5 ML VIAL INH SCH ×4 (02:36→15:15)
[2019-09-19] MEDS: INSULIN ASPART 100 UNITS/ML 3 ML PEN SC SCH ×4 (03:59→12:44)
[2019-09-19 07:42] LABS: Calcium 8.2 mg/dl (8.5-10.1); Creatinine Clr Calc Pharmacy 19.8 ml/min; Est GFR (African American) 15.5; Est GFR (Non-African American) 13.4; Potassium 3.9 mmol/L (3.5-5.1)
[2019-09-19] MEDS: AMLODIPINE BESYLATE 5 MG TAB PO SCH (07:48)
[2019-09-19] MEDS: FERROUS SULFATE 325 MG TAB PO SCH (07:49)
[2019-09-19] MEDS: levETIRAcetam 500 MG TAB PO SCH (07:49)
[2019-09-19] MEDS: predniSONE 20 MG TAB PO SCH (07:49)
[2019-09-19] MEDS: METOPROLOL SUCC 25MG EXT REL TAB PO SCH (07:49)
[2019-09-19] MEDS: FUROSEMIDE 80 MG in SYRINGE 0 ML IV SCH (07:53)
[2019-09-19] MEDS ORDERED: INSULIN HUMAN NPH SC SCH (08:00)
--- NOTE | 2019-09-19 09:06 | Nephrology Progress Note ---
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 Baseline creatinine in the low threes for the past 2 months w/ 4 g of proteinuria. He presented with acute hypoxic respiratory failure of multifactorial etiology and has been aggressively diuresed. His electrolytes are stable. creatinine hanging at 4 for past 2 days in setting of aggressive diuresis. He has an AV fistula which has a high- pitched sound and will need intervention before use. I do not think he needs dialysis imminently. -Avoid nephrotoxins such as NSAIDs and contrast. -cont current 80 iv bid lasix > look to change to po soon as below -hold ACEI now and at d/c >> would defer to Dr Kolb, his OP management professional, on when/whether to resume that -weekly bmp at d/c and f/u w/ Dr Kolb in CKD clinic in 2-4 wks -dialy bmp while in house (2) Chronic diastolic heart failure: Patient with diastolic CHF. HTN still marked. -repeat CXR today > if CXR improved consider stopping IV lasix and starting torsemide 80 mg daily -monitor input output. -cont fluid restriction of 1.8 L daily now and at d/c. Appreciate recommendations from cardiology; -daily standing wts pls Subjective seen on rounds this am at 0940; tired/dosing; daughter at bedside; edema a bit worse w/ dependence; no sob; no issues w/ po intake or abd pain; denies voiding difficulties Review of Systems Review of Systems: All systems reviewed & are unremarkable except as noted in HPI & below Physical Exam Constitutional: well developed and well nourished sitting up in chair on RA Eyes: EOM intact bilaterally ENMT: Ears: no external ear abnormality Nose: no external nose abnormality Mouth: + dry oral mucous membranes Neck: no nuchal rigidity Respiratory: normal respiratory effort Auscultation: + diminished lung sounds (markedly) Cardiovascular: Rate/Rhythm: regular rate and regular rhythm Extremities: + edema (2-3+ pedal BLE, 1+ pretibial BLE) Gastrointestinal (Abdomen): Inspection/Auscultation: normal bowel sounds Percussion/Palpation: abdomen soft; abdomen nontender Musculoskeletal: Extremities: strength 5/5 throughout Skin: no rashes, warm and dry Psychiatric: A+Ox3, euthymic affect Results & Data Vital Signs (Past 12 Hours) Vital Signs Temp Pulse Pulse Resp BP Pulse Ox 09/19/19 07:28 36.4 C L 63 20 158/65 H 90 09/19/19 07:03 59 L 16 91 09/19/19 03:49 36.6 C 60 19 145/61 H 92 09/18/19 23:56 36.4 C L 63 19 153/63 H 90 09/18/19 23:37 65 Laboratory Results 09/16/19 05:33 09/19/19 06:42
--- NOTE | 2019-09-19 10:15 | Pharmacy Report ---
Pharmacy Glycemic Short Note 2 - Date of Service September 19, 2019 - Glycemic Short BSG Results (Last 24 hours): 09/18/19 09/18/19 09/18/19 07:42 11:45 11:46 Glucose POC Glucose 249 H 53 L* 48 L* 09/18/19 09/18/19 09/18/19 12:05 12:11 13:00 Glucose POC Glucose 70 83 102 H 09/18/19 09/18/19 09/18/19 16:11 20:29 23:56 Glucose POC Glucose 92 219 H 128 H 09/19/19 09/19/19 03:53 06:42 Glucose 81 POC Glucose 102 H OUTPATIENT ANTIDIABETIC REGIMEN: * Glipizide 10 mg PO BID * A1c = 6.6% (09/15/19) ASSESSMENT: 09/19/19 * Patient developed pre-lunch hypoglycemia yesterday secondary to NPH + Novolog with breakfast prednisone administration * Pt received less than 0.1units/kg NPH with 40mg Prednisone yesterday. Will give only 20units NPH today with Prednisone given yesterday's observed response. * Novolog CF and CR were lessened yesterday in response to hypoglycemic episode. These current doses are in line with "moderate" stress and will continue today. 09/18/19 * BSGs climbed into the mid-300s last evening despite aggressive SQ insulin doses * In total 103 units of SQ insulin administered yesterday * Fasting BSG 249 this AM with 39 units basal insulin on board * Today steroid regimen with change to Prednisone 40mg daily, thus hyperglycemia likely to continue this AM + into this afternoon * Will use NPH insulin, timed w/ Prednisone to help combat hyperglycemia induced by this steroid. * Novolog CF and CR will be continued at this time w/ reassessment later today. * Overnight BSG checks would be beneficial for added correctional insulin if the current orders fall short 09/17/19 * Mr. Yuan received 86 units of SQ insulin yesterday overlapped with an IV insulin infusion. Infusion was discontinued 09/17 around 0300. * He continues to require significant doses of insulin due to steroid induced hyperglycemia; he was given solu medrol 40 mg IV this morning, then starting prednisone 40 mg daily on 09/18. * Fasting BSG of 164 mg/dL remains above goal however this is greatly improved. Continue Lantus dose per scale for today. * Lunch BSG is above goal, therefore Novolog carb coverage was tightened. * Insulin dosing will be reassessed tomorrow morning due to change in steroid dosing. 09/16/19 * 79 yr old T2DM male admitted with acute respiratory failure likely secondary to COPD exacerbation, bronchitis. Patient is experiencing severe hyperglycemia secondary to high dose IV steroids. He is currently receiving solu medrol 40 mg IV q8h. He is well controlled as an outpatient on glipizide. * Mr. Yuan received Lantus 5 units BID yesterday. His fasting BSG was 353 mg/dL this morning. I will increase his basal insulin to a total of 40 units this morning then dose per BSG scale. I have also ordered a one time IV regular insulin 10 unit bolus. * Continue Novolog based on weight and stress of 3. PLAN FOR INPATIENT GLYCEMIC CONTROL: * Hold outpatient oral diabetes medications (Glipizide) * Basal insulin * NPH 20 units SQ Q AM w/ prednisone dose * Bolus insulin * NovoLog per scale ACHS * Goal Range: Low 110 mg/dL - High 140 mg/dL * Correction Factor: 20 mg/dL/unit * Nutritional / Prandial insulin per carb ratio of 1 unit per 7 grams CHO consumed PLAN FOR DISCHARGE: * A1c of 6.6% is at goal * May resume outpatient regimen of glipizide. If patient is discharged on steroids, outpatient regimen will require adjustment (possibly the addition of NPH w/ AM prednisone?)
[2019-09-19] MEDS: DOXYCYCLINE HYCLATE 100 MG CAP PO SCH (11:05)
--- NOTE | 2019-09-19 11:38 | XRay Report ---
XR chest 2V PA/lateral CLINICAL HISTORY: check vol status after diuresis dyspnea COMPARISON STUDY: 09/15/2019 FINDINGS: Moderately improved aeration both lung bases. Pulmonary vasculature is somewhat diminished in prominence. Heart remains mildly enlarged. IMPRESSION: Improving components of congestive heart failure The above report was generated using voice recognition software. It may contain grammatical, syntax or spelling errors. Electronically signed by: Jeovany Driscoll M.D. 09/19/2019 11:36 AM
--- NOTE | 2019-09-19 18:19 | Discharge Summary ---
Date of Service September 19, 2019 Principal Diagnosis acute on chronic heart failure -diastolic dysfunction /COPD exacerbation Discharge Data Allergies Allergy/AdvReac Type Severity Reaction Status Date / Time codeine AdvReac Intermediate NAUSEA Verified 09/15/19 02:14 Consultations 09/15/19 03:16 ED Decision to Admit Stat 09/15/19 04:51 Consult Case Management - Discharge Planning Routine 09/15/19 08:00 Consult Cardiology Routine Consult Nephrology Routine Hospital Course (1) Acute respiratory failure: Symptom markedly improved, with nebulizer treatment, pulmonary tolerating IV Lasix drip discontinued, patient is transition to Lasix 80 mg twice daily Supplemental oxygen weaned down to 2 L via nasal cannula with a goal of SPO2 between 90% Will need home oxygen requirement testing/two-step exercise ordered for tomorrow No audible wheeze, no respiratory distress, IV Solu-Medrol discontinued Transition to p.o. prednisone 40 mg daily , for 5 days Presented with acute hypoxemic respiratory failure, SPO2 dropped to 70%, at present on 6 L oxygen via face mask Possible secondary to COPD exacerbation with underlying bronchitis Diffuse wheezing noted in all lung lynch during auscultation patient continue with IV steroids, started with scheduled dose of nebs, empiric antibiotic with Zithromax and Rocephin Chest x-ray 09/15/2019: Interval development of moderate pulmonary edema with suspected small bilateral pleural effusion Appreciate input from cardiology, nephrology Hyperglycemia: Type 2 diabetes Type 2 diabetes on oral meds, well-controlled hemoglobin A1c 6.6 Had hypoglycemic episode secondary to IV steroids, required transiently on IV insulin drip Patient input from pharmacy Insulin drip discontinued On IV sliding scale and Lantus (2) Chronic diastolic heart failure: History of chronic CHF with preserved left ventricular ejection fraction: Echocardiogram in 07/06/2019: Normal LV chamber size with normal ejection fraction 55-60%, mild concentric left ventricular hypertrophy No segmental left wall motion abnormality noted, GRADE 2 DIASTOLIC DYSFUNCTION Aortic valve sclerosis without stenosis Presented with respiratory failure, hypoxia, chest x-ray shows pulmonary vascular congestion with bilateral pleural effusion, Was treated with IV Lasix drip, discontinued appreicate input from Nephrology will be discharged on Torsemide 80 mg daily ( was on 40 mg daily ) Volume status remains stable (3) CKD (chronic kidney disease), stage IV: Baseline advanced CKD stage IV, status post right upper extremity AV fistula Baseline creatinine 3 Appreciate input from nephrology, Diuretics changed to Torsemide 80- mg daily (4) Atrial fibrillation: History of paroxysmal A. fib at present rate controlled on beta-solis: Metoprolol succinate 25 mg p.o. daily Patient was on Coumadin anticoagulation for stroke prophylaxis in past Sustained a fall leading to subdural hematoma with 5 mm midline displacement, patient was sent to [facility], Did not require any surgical intervention other than reversal of coagulopathy Patient has not been on any anticoagulation since Not a candidate for long-term anticoagulation secondary to high fall risk, recent history of subdural hematoma (5) History of subdural hemorrhage: Status post fall leading to subdural hematoma on March 2019: She was asked to transfer to [facility], CT head showed left 1 cm subdural hematoma with 1 mm midline shift left to right, Right-sided small 5 mm subdural hematoma Patient was on Coumadin(for atrial fibrillation) , INR 4, Coagulopathy was reversed with Kcentra and vitamin K At [facility] repeat CAT scan showed stable subdural hematoma, patient did not require any surgical intervention, coagulopathy was reversed Not a candidate for long-term anticoagulation for stroke prophylaxis/A. fib , CODE STATUS: DNR/DNI Disposition: Lives with daughter ( manish ) at home, PT OT evaluation requested Social service following for discharge planning ordered for two-step exercise : Does not need home O2 Possible discharge home with home health home PT if patient continues to do well clinically Total Time Total Time Spent Total Time Spent (In Minutes): APPROX 45 MINS Total Time Includes: Examination of the Patient, Discharge Planning, Medication Reconciliation, Communication With Other Providers and Other Discharge Plan Discharge Items Patient Disposition: Home - Home Health Services Reason For Visit: SOB Discharge Diagnosis: ACUTE ON CHRONIC CHF WITH DIASTOLIC HEART FAILURE /COPD EXACERBATION /BRONCHITIS Activity: Resume your previous activity Non-emergency contact: Primary Care Provider Call non-emergency contact if: you have any medication questions Follow-up/Referrals: Aden Saldaña MD [Primary Care Provider] - 09/21/19 2:00 pm (HOSPITAL FOLLOW UP WITH DR SANCHEZ ON 09/21/19 @ 2 PM ) Gilmar Kolb MD [Physician] - 09/29/19 1:40 pm Diet: Heart Healthy Fluids: 1800ml (7 cups) Ambulatory Orders: Basic Metabolic Panel (Routine) Timeframe: 1 Week Location: Determined by Patient Ordered By: Abeba Galindo Attending Provider Instructions: HOSPITAL FOLLOW UP WITH DR SANCHEZ ON 09/21/19 @ 2 PM ( DR SALDAÑA SCHEDULE IS FULL ) NEPHROLOGY FOLLOW UP WITH DR KOLB ON 09/29/2019 @ 1: 40 PM Call your Primary Care doctor if any of the following symptoms or problems start or get worse: * Shortness of breath or difficulty breathing * Wake up at night short of breath * Chest pain * Cough * Swelling of your hands, feet, or legs * More fatigued or tired with your normal activity * Palpitations - sudden fast heart beats WEIGHT * Weigh yourself every morning after using the bathroom. * Use the same scale. * Wear the same amount of clothing. * Write your weight down on a chart. * Call your Primary Care doctor if you gain more than 2-3 pounds in 1-2 days. MEDICATIONS * Use this discharge instruction sheet for medication instructions. * Take your medications at the time your doctor ordered. * Do not skip a dose of your medicines. * If you miss a dose of medicine, take it as soon as possible, but DO NOT DOUBLE A DOSE. * Read your medicine information when you get home. * Know all of the side effects of your medicine. If in doubt, ask your pharmacist * Call your Primary Care doctor's office if you have any side effects. * Be sure all of your doctors know what medicine and herbs you take (including cold, flu, and herbal medicine). Take the following with you to your follow-up doctor appointments: * Weight Chart * Medication List * List of questions Do not drink excessive alcohol, beer or wine. Pending Studies at Discharge: Yes Studies:: BASIC METABOLIC PANEL IN 1 WEEK Stand-Alone Forms: [facility] Medications and DC Order Prescriptions: New torsemide 20 mg tablet 80 mg PO DAILY 30 Days Qty: 120 RF: 3 Continued levetiracetam 500 mg Tablet 500 mg PO BID RF: 0 acetaminophen 650 mg Tablet Extended Release 650 mg PO Q6H PRN (Reason: pain/fever) RF: 0 Iron 65 65 mg PO BID RF: 0 amlodipine 10 mg tablet 5 mg PO DAILY RF: 0 glipizide 10 mg Tablet 10 mg PO BID RF: 0 lovastatin 40 mg Tablet 80 mg PO HS RF: 0 Victoza 2-Fernando 0.6 mg/0.1 mL (18 mg/3 mL) Pen Injector 1.2 mg SUBCUT DAILY RF: 0 cholecalciferol (vitamin D3) 2,000 unit Tablet 2,000 units PO DAILY RF: 0 metoprolol succinate 25 mg tablet extended release 24 hr 25 mg PO DAILY RF: 0 Discontinued azithromycin 250 mg Tablet 250 mg PO DAILY RF: 0 lisinopril 10 mg Tablet 10 mg PO DAILY RF: 0 torsemide 10 mg Tablet 40 mg PO QAM 30 Days Qty: 120 RF: 2 Discharge Orders: Discharge Order (Routine); Ordered 09/19/19 Ordered By: Abeba Rosen Admission Data Admit Date/Time: 09/15/19 04:17 Attending Provider: Abeba Rosen Admit Provider: Rohan Salazar Primary Care Provider: Aden Saldaña Other Providers: Rohan Salazar ; Antonio Matias ; Parth Woodson ; Laci Moulton ; Yosvany Muir ; Luis Santos ; Jeovany Garcia ; Monse Bryant ; Tiana Grande ; Thais Calhoun ; Eric Ayala ; Charissa Nguyen ; Neeta Abbott ; Gilmar Kolb Other Interventions: Discharge Summary Assessment (RN) Last Done: 09/19/19 14:42 DC Date/Time DO NOT enter until pt leaves facility: 09/19/19 16:33
--- NOTE | 2019-10-05 16:46 | Coding Query ---
CONGESTIVE HEART FAILURE To Promote full compliance with coding requirements relating to patient care, physician participation is requested in all cases of baseball umpire for little league uncertainty. Please assist us with the following questions. A diagnosis of Congestive Heart Failure is documented in the patient's medical record. To accurately code this diagnosis and to compare patient severity, we ask that you specify the type of heart failure by placing an X within the parenthesis (x). Thank you , DELMER Tanner [facility] SYSTOLIC HEART FAILURE ( ) Acute ( ) Chronic ( ) Acute on Chronic ( ) Rheumatic ( ) Unknown DIASTOLIC HEART FAILURE ( ) Acute ( ) Chronic ( x) Acute on Chronic ( ) Rheumatic ( ) Unknown COMBINED SYSTOLIC AND DIASTOLIC HEART FAILURE ( ) Acute ( ) Chronic ( ) Acute on Chronic ( ) Rheumatic ( ) Unknown Was the CHF Present On Admission? Please check the appropriate box: ( ) Present on Admission ( ) Not Present On Admission ( ) Clinically undetermined Thank you Manohar WALLS
== END 2019-09-19 16:33 | disposition home health service (06) | DRG 189 ==
LOC: ED 01:45 → 2S 04:17

== ENCOUNTER 2019-11-21 10:24 | Inpatient (IN) ==
[2019-11-21] MEDS ORDERED: MAGNESIUM SULFATE / D5W 1 GM/100 ML BAG IV ONE (10:32)
[2019-11-21] MEDS ORDERED: LEVALBUTEROL HCL 1.25 MG/3 ML NEB NEB STA (10:32)
[2019-11-21] MEDS ORDERED: methylPREDNISolone 60 MG in SYRINGE 1 ML IV STA (10:34)
[2019-11-21] MEDS ORDERED: methylPREDNISolone 125 MG/2 ML VIAL ONE (10:49)
--- NOTE | 2019-11-21 10:57 | XRay Report ---
XR chest 1V portable CLINICAL HISTORY: 79 years-old Male presenting with Chest Pain. TECHNIQUE: Portable upright AP view of the chest was obtained. COMPARISON: 09/19/2019. FINDINGS: Atherosclerosis of the aortic arch. Cardiac silhouette enlarged. Pulmonary vascular prominence and in terstitial prominence increased from prior. Moderate to large left pleural effusion increased from pr ior. Small right pleural effusion. Poor aeration of the left lung base. No pneumothorax. IMPRESSION: 1. Moderate to large left pleural effusion with extensive left basilar atelectasis. 2. Volume overload and congestive change in the setting of cardiomegaly. Developing pulmonary edema not excluded. 3. Small right pleural effusion. ACT 112: Negative or not required by law. Electronically signed by: Robinson Allison M.D. 11/21/2019 10:56 AM
[2019-11-21 11:00] LABS: Basophils # (auto) 0.02 K/uL (0-0.2); Basophils % (auto) 0.2 %; Eosinophils # (auto) 0.01 K/uL (0-0.5); Eosinophils % (auto) 0.1 %; Hematocrit (blood only) 37.7 % (42-52); Hemoglobin 12.2 g/dL (14.0-18.0); Immature Granulocytes # (auto) 0.02 K/uL (0.00-0.02); Immature Granulocytes % (auto) 0.2 %; Lymphocytes # (auto) 0.57 K/uL (1.2-3.4); Lymphocytes % (auto) 4.4 %; Mean Corpuscular Hemoglobin 29.5 pg (25-34); Mean Corpuscular Hgb Conc 32.4 g/dL (32-36); Mean Corpuscular Volume 91.1 fL (80-100); Mean Platelet Volume 9.7 fL (7.4-10.4); Monocytes # (auto) 0.96 K/uL (0.11-0.59); Monocytes % (auto) 7.5 %; Neutrophils # (auto) 11.26 K/uL (1.4-6.5); Neutrophils % (auto) 87.6 %; Platelet Count 235 K/uL (130-400); RDW Coefficient of Variation 14.7 % (11.5-14.5); RDW Standard Deviation 49.2 fL (36.4-46.3); Red Blood Count 4.14 M/uL (4.7-6.1); White Blood Count 12.84 K/uL (4.8-10.8)
[2019-11-21] MEDS ORDERED: FUROSEMIDE 40 MG/4 ML VIAL IV STA ×2 (11:02→14:25)
[2019-11-21 11:10] LABS: Alanine Aminotransferase 21 U/L (12-78); Albumin Level 3.1 gm/dl (3.4-5.0); Aspartate Aminotransferase 13 U/L (15-37); BUN Creatinine Ratio 13.2 (10-20); Blood Urea Nitrogen 40 mg/dl (7-18); Calcium 9.6 mg/dl (8.5-10.1); Carbon Dioxide 35 mmol/L (21-32); Chloride 101 mmol/L (98-107); Est GFR (African American) 21.8; Est GFR (Non-African American) 18.8; Glucose 137 mg/dl (70-99); Lipase 114 U/L (73-393); Potassium 3.7 mmol/L (3.5-5.1); Sodium 140 mmol/L (136-145)
[2019-11-21 11:15] LABS: Albumin Globulin Ratio 0.8 (0.9-2); Alkaline Phosphatase 60 U/L (45-117); Bilirubin,Total 0.6 mg/dl (0.2-1); Creatine Kinase 53 U/L (39-308); Globulin 4.1 gm/dl (2.5-4.0); Total Protein 7.2 gm/dl (6.4-8.2); Troponin I < 0.015 ng/ml (0-0.045)
[2019-11-21 11:33] LABS: Influenza A virus by PCR Neg for Influ A (Neg); Influenza B virus by PCR Neg for Influ B (Neg)
--- NOTE | 2019-11-21 13:35 | History & Physical Report ---
Date of Service November 21, 2019 Assessment & Plan (1) Acute and chronic respiratory failure: (2) Pleural effusion on left: (3) Acute on chronic diastolic (congestive) heart failure: Mr. 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 In ED patient was hypoxic requiring 4 L of O2 via oxygen mask. He was otherwise hemodynamically stable and afebrile. Lab abnormalities notable for leukocytosis 12.8 4K, H&H 12.12 and 37.7, BUN 40, creatinine 3.01, troponin WNL, flu negative. Chest x-ray concerning for large left pleural effusion, small right pleural effusion and congestive changes concerning for pulmonary edema. He received IV Lasix 40 mg, nebulizer treatment, 1 g magnesium supplementation and IV methylprednisolone 125 mg while in ED. Pt with acute on chronic respiratory failure likely 2/2 to a/c diastolic CHF, unknown cause of exacerbation but likely diet related admit to PCU continue O2 supplementation keeping O2 sat > 90 Lasix IV 80mg BID 17 strict I and O daily weight daily bmp repeat echocardiogram given severity of pleural effusion repeat CXR to monitor for improvement of effusion (4) Severe chronic obstructive pulmonary disease: does not appear to have COPD exac at this time received steroid in ED, but will hold further steroid for now as it can worsen fluid retention Duoneb QID, incentive spirometry recently finished course of Azithromycin as outpt (5) CKD (chronic kidney disease), stage IV: baseline cr 3.0 bun/cr stable at 40 and 3.01 low threshold for nephrology consult (6) Atrial fibrillation: rate controlled on metoprolol off OAC 2/2 to SDH while on coumadin 03/2019 hospitalized [facility] [place] no surgical intervention required Keppra for seizure prophlyaxis (7) Diabetes mellitus, type 2: Last A1C 6.6 08/2019 hold glipizide lantus/novolog per protocol anticipate hyperglycemia 2/2 to iv solumedrol (8) HTN (hypertension), benign: blood pressure stable continue amlodipine, metoprolol hold home torsemide (9) Dyslipidemia: continue statin (10) CARLOS ALBERTO (obstructive sleep apnea): does not use cpap uses o2 via NC at HS (11) Tobacco use disorder: pt declines nicotine patch smoking cessation encouraged (12) Depression: recently started low dose sertraline monitor (13) AAA (abdominal aortic aneurysm): AAA noted on CT abd/pelvis 5.2 x 5.0cm infrarenal AA on 07/26/19 per [facility] records pt does not have follow up Would recommend close follow up with vascular as outpt post discharge (14) DVT prophylaxis: SCD/TEDS for now in light of previous SDH 03/2019 monitor daily need for chemical prophylaxis Disposition: admit to PCU Follow up: PCP Dr. Colon upon discharge Pt was seen and examined in collaboration with Dr. Marlow, please see addendum History of Present Illness Chief Complaint: Worsening shortness of breath x1.5 weeks. Primary Care Provider: Aden Colon MD Mr. 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 Son, [id number] and daughter are at bedside. Over the past 1.5 weeks he has noted increasing shortness of breath with exertion and at rest, decreased oxygen saturation, 5 to 7 pound weight gain, productive cough with white and blood specks sputum, decreased appetite, increasing somnolence and fatigue. He denies any recent illness, fever, chills, sweats, lightheadedness, dizziness, syncope, fall, chest pain, palpitations, hemoptysis, nausea, vomiting, abdominal pain, diarrhea, melena, dyschezia. He does still produce urine and denies any dysuria, hematuria or change in urinary frequency. He states he does monitor his fluid intake to 32 ounces daily. Baseline weight around 250. Recently seen by PCP and finished a course of azithromycin secondary to not feeling well. Symptoms unchanged. He does wear oxygen at night and secondary to decreasing oxygen saturations he has been wearing it throughout the day as well. Denies any madelyn orthopnea or PND. Denies any increased lower extremity edema. Patient last confined 08/2019 secondary to diastolic CHF exacerbation and acute respiratory failure treated with IV diuresis, steroids, nebulizers and antibiotics. In ED patient was hypoxic requiring 4 L of O2 via oxygen mask. He was otherwise hemodynamically stable and afebrile. Lab abnormalities notable for leukocytosis 12.8 4K, H&H 12.12 and 37.7, BUN 40, creatinine 3.01, troponin WNL, flu negative. Chest x-ray concerning for large left pleural effusion, small right pleural effusion and congestive changes concerning for pulmonary edema. He received IV Lasix 40 mg, nebulizer treatment, 1 g magnesium supplementation and IV methylprednisolone 125 mg while in ED. Allergies Allergy/AdvReac Type Severity Reaction Status Date / Time codeine AdvReac Intermediate NAUSEA Verified 11/21/19 11:46 Home Medications Home Medications Medication Instructions Recorded Confirmed Type Victoza 2-Fernando 1.2 mg SUBCUT DAILY 02/09/19 11/21/19 History cholecalciferol (vitamin D3) 2,000 units PO DAILY 02/09/19 11/21/19 History glipizide 10 mg PO BID 02/09/19 11/21/19 History lovastatin 80 mg PO HS 02/09/19 11/21/19 History levetiracetam 500 mg PO BID 05/10/19 11/21/19 History acetaminophen 650 mg PO Q6H PRN 07/06/19 11/21/19 History amlodipine 5 mg PO DAILY 09/15/19 11/21/19 History torsemide 80 mg PO DAILY 30 Days #120 tab 09/19/19 11/21/19 Rx ferrous sulfate 325 mg (65 mg 325 mg PO BID 10/12/19 11/21/19 History iron) tablet metoprolol succinate 50 mg PO DAILY 11/21/19 11/21/19 History sertraline 25 mg PO DAILY 11/21/19 11/21/19 History Past Med/Surg History Medical History (Updated 11/21/19 @ 13:55 by Loni Wagner PA-C) AAA (abdominal aortic aneurysm) Atrial fibrillation (Chronic) dx 2015 - no longer taking warfarin - recent fall w/ brain bleed 03/2019 Chronic diastolic heart failure Chronic systolic heart failure (Chronic) CKD (chronic kidney disease), stage IV Diabetes mellitus, type 2 (Chronic) Dyslipidemia (Chronic) History of CVA (cerebrovascular accident) (Chronic) 2016 - dx w/ a.fib - [facility] - no deficits History of seizure (Resolved) history obtained from dtr - unsure of last seizure 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 - fall - [place] 03/30/2019 [place] [facility] [place] HTN (hypertension), benign (Chronic) Nocturnal hypoxemia CARLOS ALBERTO (obstructive sleep apnea) (Chronic) does not tolerate CPAP Severe chronic obstructive pulmonary disease Tobacco use disorder (Chronic) Surgical History History of back surgery (Resolved) History of cataract surgery (Chronic) History of colonoscopy (Chronic) History of esophagogastroduodenoscopy (EGD) (Chronic) History of lumbar spinal fusion (Chronic) x 2 History of tooth extraction (Chronic) Family History Mother Cancer Brother Diabetes Heart disease Social History Preferred Language: Faroese Communication Ability: Effective Iphone Developer Required: No Beliefs That Will Affect Care: None marital status: Current Living Situation: Spouse and Family Other Information That Helps Us Care for You: No Feels Safe at Home: Yes Safety Concerns: Feels Safe At This Time Smoking Status: Current every day smoker Tobacco Type: cigarettes ; Cigarettes Per Day: 6 ; Do You Dip or Chew Tobacco: No ; Second Hand Exposure: No ; Tobacco Cessation Education Requested by Patient: No Hx Alcohol Use: No Hx Substance Use: No Review of Systems Review of Systems: All systems reviewed & are unremarkable except as noted in HPI & below Physical Exam Physical Exam: Constitutional: Morbidly obese, M, elderly, smells of tobacco, vitals as above, NAD, sitting up in bed but somnolent, answers questions appropriately Head: Normocephalic, Atraumatic Eyes: PERRL, conjunctivae normal, anicteric sclerae ENMT: external ear and nose normal, oropharynx normal Neck: trachea midline, no thyromegaly normal visual inspection Respiratory: normal respiratory effort, on O2 via Oxymask, absent breath sounds L mid/lower lobe, no wheeze, rales, rhonchi. Normal insp/exp effort, no accessory muscle use Cardiovascular: RRR with ectopy noted, soft 1/6 isabella noted rusb, trace pretibial edema, RUE AV Fistula Vessels: no JVD or carotid bruit Chest: normal inspection of chest Abdomen: protuberant abd, normal bowel sounds, soft, nontender, no hepatosplenomegaly Musculoskeletal: no cyanosis or clubbing, extremities motor strength 5/5 Skin: no rashes, warm and dry normal turgor Neurologic: PERRL, EOMI, accommodation nl, no face palsy, no dysarthria CN's II-XI intact bilaterally and moves all extremities Psychiatric: A+Ox3, euthymic affect Lymphatic: no cervical or axillary lymphadenopathy : deferred Results & Data Vital Signs (Past 12 Hours) Vital Signs Temp Pulse Pulse Resp BP BP Pulse Ox 11/21/19 13:02 76 20 152/77 H 95 11/21/19 12:39 94 11/21/19 12:01 79 19 85 L 11/21/19 12:00 76 20 145/72 H 85 L 11/21/19 11:40 92 11/21/19 11:31 76 18 87 L 11/21/19 11:30 74 18 162/85 H 88 L 11/21/19 11:10 76 22 162/85 H 93 11/21/19 11:01 77 32 H 97 11/21/19 11:00 76 29 H 167/74 H 98 11/21/19 10:55 77 18 93 11/21/19 10:36 92 11/21/19 10:32 37.3 C 79 22 183/73 H 92 11/21/19 10:31 76 22 183/73 H 90 11/21/19 10:30 78 20 90 Laboratory Results Short CBC 11/21/19 Range/Units 10:35 WBC 12.84 H (4.8-10.8) K/uL Hgb 12.2 L (14.0-18.0) g/dL Hct 37.7 L (42-52) % Plt Count 235 (130-400) K/uL BMP 11/21/19 10:35 Sodium 140 Potassium 3.7 Chloride 101 Carbon Dioxide 35 H BUN 40 H Creatinine 3.01 H Glucose 137 H Calcium 9.6 Cardiac Enzymes 11/21/19 Range/Units 10:35 Total Creatine Kinase 53 (39-308) U/L CK-MB (CK-2) 1.0 (0.5-3.6) ng/ml Troponin I < 0.015 (0-0.045) ng/ml Liver Function 11/21/19 Range/Units 10:35 Total Bilirubin 0.6 (0.2-1) mg/dl AST 13 L (15-37) U/L ALT 21 (12-78) U/L Alkaline Phosphatase 60 (45-117) U/L Albumin 3.1 L (3.4-5.0) gm/dl Diagnostic Findings CXR: 1. Moderate to large left pleural effusion with extensive left basilar atelectasis. 2. Volume overload and congestive change in the setting of cardiomegaly. Developing pulmonary edema not excluded. 3. Small right pleural effusion. Medications Administered Discontinued Medications Furosemide (Lasix) 40 mg IV NOW STA Stop: 11/21/19 11:03 Last Admin: 11/21/19 11:10 Dose: 40 mg Documented by: [id number] Methylprednisolone 60 mg/ (Syringe) 1.96 mls @ 1.5 mls/min IV NOW STA Stop: 11/21/19 10:35 Last Admin: 11/21/19 10:51 Dose: Not Given Documented by: [id number] Magnesium Sulfate/Dextrose (Magnesium Sulfate / D5w) 1 gm in 100 mls @ 100 mls/hr IV ONE ONE Stop: 11/21/19 11:31 Last Infusion: 11/21/19 12:14 Dose: 0 mls/hr Documented by: [id number] Admin: 11/21/19 10:50 Dose: 100 mls/hr Documented by: [id number] Levalbuterol HCl (Xopenex 1.25mg/3ml Neb) 1.25 mg NEB NOW STA Stop: 11/21/19 10:33 Last Admin: 11/21/19 10:54 Dose: 1.25 mg Documented by: [id number] Methylprednisolone (Solumedrol) Confirm Administered Dose 125 mg .ROUTE .STK-MED ONE Stop: 11/21/19 10:50 Last Admin: 11/21/19 10:50 Dose: 60 mg Documented by: [id number] ECG Rate (beats per minute): 78 Rhythm: normal sinus Findings: + 1st degree AV block and + PAC Code Status & VTE Plan Code Status Full Code VTE Prophylaxis Plan VTE Prophylaxis will be ordered: Yes Supervising Physician Co-Signing Physician Notes I, Dr. Elliot Marlow, have seen and examined the patient with physician clinical medical assistant and agree with assessment and plan as above and would like to comment: that on physical exam General/Lungs: breathing on oxymask, does not appear to using accessory muscles at rest, but when asked to take deep breaths on exam the patient could not cooperate Heart: regular rate Abdomen: soft, nontender, positive bowel sounds Neurological: moves all extremities ACUTE AND CHRONIC RESPIRATORY FAILURE ACUTE ON CHRONIC DIASTOLIC CONGESTIVE HEART FAILURE LEFT PLEURAL EFFUSION CHRONIC OBSTRUCTIVE PULMONARY DISEASE CHRONIC KIDNEY DISEASE STAGE 4 TYPE 2 DIABETES MELLITUS WITH DIABETIC CHRONIC KIDNEY DISEASE atrial fibrillation -this is a patient with chronic respiratory failure who on baseline uses 2 liter/min of oxygen daily with likely contribution by COPD and current active smoker, whose acute respiratory failure process from left pleural effusion likely to acute on chronic diastolic congestive failure which has now increased oxygen requirements to 4 liters/min -patient received IV Lasix in the ED. Will at this time have patient on IV Lasix as BID -will need to monitor renal function closely given underlying chronic kidney disease stage 4 and with increased diuretics -given COPd history, patient will benefit from scheduled duonebs for now to help with upper airway while diuretics being used to reduce the size of the left pleural effusions -hold oral diabetes medications and manage diabetes with insulin and fingerstick glucose checks -continue beta bockers and monitor heart rate and rhythm on telemetry -agree with other assessments and plans as documented by physician clinical medical assistant (1) Atrial fibrillation Atrial fibrillation type: paroxysmal Qualified Code(s): I48.0 - Paroxysmal atrial fibrillation
[2019-11-21 13:58] LABS: Base Excess VBG 7.2 mEq/L; pH VBG 7.34 (7.36-7.41)
--- NOTE | 2019-11-21 14:01 | Emergency Department Note ---
Entered by Marielena Tejada acting as a scribe for Apollo Hough MD History of Present Illness General Chief complaint: Shortness of Breath/Dyspnea Time Seen by Provider: 11/21/19 10:28 Source: patient and RN notes reviewed History of Present Illness Onset (ago): hour(s) (few) Location: chest Pain Consistency: + other (shortness of breath) Quality: + other (shortness of breath) Associated symptoms: + denies other symptoms and + other (+74% oxygen saturation ) The patient is a 79 year old male, with past medical history of COPD and diastolic heart failure, who presents to the Emergency Room with complaints of worsening shortness of breath over the last few hours. The RN notes the patient only wears oxygen at night, but she can not confirm the amount of oxygen. She also reports that the patients oxygen saturation level reached 74 percent earlier this morning. The patient does not report of any other symptoms. Home Medications Home Medications Medication Instructions Recorded Confirmed Type Victoza 2-Fernando 1.2 mg SUBCUT DAILY 02/09/19 11/21/19 History cholecalciferol (vitamin D3) 2,000 units PO DAILY 02/09/19 11/21/19 History glipizide 10 mg PO BID 02/09/19 11/21/19 History lovastatin 80 mg PO HS 02/09/19 11/21/19 History levetiracetam 500 mg PO BID 05/10/19 11/21/19 History acetaminophen 650 mg PO Q6H PRN 07/06/19 11/21/19 History amlodipine 5 mg PO DAILY 09/15/19 11/21/19 History torsemide 80 mg PO DAILY 30 Days #120 tab 09/19/19 11/21/19 Rx ferrous sulfate 325 mg (65 mg 325 mg PO BID 10/12/19 11/21/19 History iron) tablet metoprolol succinate 50 mg PO DAILY 11/21/19 11/21/19 History sertraline 25 mg PO DAILY 11/21/19 11/21/19 History Allergies Allergy/AdvReac Type Severity Reaction Status Date / Time codeine AdvReac Intermediate NAUSEA Verified 11/21/19 11:46 Past Med/Surg History Medical History (Updated 11/22/19 @ 11:16 by Apollo Hough MD) AAA (abdominal aortic aneurysm) Atrial fibrillation (Chronic) dx 2016 - no longer taking warfarin - recent fall w/ brain bleed 03/2019 Chronic diastolic heart failure Chronic systolic heart failure (Chronic) CKD (chronic kidney disease), stage IV Diabetes mellitus, type 2 (Chronic) Dyslipidemia (Chronic) History of CVA (cerebrovascular accident) (Chronic) 2016 - dx w/ a.fib - [facility] - no deficits History of seizure (Resolved) history obtained from dtr - unsure of last seizure 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 - fall - [place] visit 03/30/2019 --> [facility] – [place] HTN (hypertension), benign (Chronic) Nocturnal hypoxemia CARLOS ALBERTO (obstructive sleep apnea) (Chronic) does not tolerate CPAP Severe chronic obstructive pulmonary disease Tobacco use disorder (Chronic) Surgical History History of back surgery (Resolved) History of cataract surgery (Chronic) History of colonoscopy (Chronic) History of esophagogastroduodenoscopy (EGD) (Chronic) History of lumbar spinal fusion (Chronic) x 2 History of tooth extraction (Chronic) Family History Mother Cancer Brother Diabetes Heart disease Social History Preferred Language: Malawian Communication Ability: Effective 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 and A total of 10 systems reviewed and were otherwise negative Physical Exam Vital Signs Vital Signs - 24 hr 11/21/19 11:30 11/21/19 11:31 11/21/19 11:40 Pulse Rate 74 76 Pulse Rate [Apical] Pulse Rate from SpO2 Sensor 86 77 Respiratory Rate 18 18 Respiratory Effort / Characteristics Blood Pressure 162/85 H Blood Pressure [Left Arm] Blood Pressure Mean 134 Blood Pressure Mean [Left Arm] Pulse Oximetry 88 L 87 L 92 Oxygen Delivery Method Nasal Cannula Oxygen Flow Rate 3 Oxygen Flow Rate - Titration 4 11/21/19 12:00 11/21/19 12:01 11/21/19 12:39 Pulse Rate 76 79 Pulse Rate [Apical] Pulse Rate from SpO2 Sensor 78 85 Respiratory Rate 20 19 Respiratory Effort / Characteristics Blood Pressure 145/72 H Blood Pressure [Left Arm] Blood Pressure Mean 88 Blood Pressure Mean [Left Arm] Pulse Oximetry 85 L 85 L 94 Oxygen Delivery Method Oxymask Oxygen Flow Rate 4 Oxygen Flow Rate - Titration 11/21/19 13:02 Pulse Rate Pulse Rate [Apical] 76 Pulse Rate from SpO2 Sensor Respiratory Rate 20 Respiratory Effort / Characteristics Spontaneous Blood Pressure Blood Pressure [Left Arm] 152/77 H Blood Pressure Mean Blood Pressure Mean [Left Arm] 102 Pulse Oximetry 95 Oxygen Delivery Method Oxymask Oxygen Flow Rate 4 Oxygen Flow Rate - Titration GENERAL: Awake, alert, well-appearing, in no acute distress HENT: Normocephalic, atraumatic. Oropharynx unremarkable. EYES: Normal conjunctiva. Sclera non-icteric. NECK: Supple. No nuchal rigidity. FROM. No JVD. RESPIRATORY: Distance breath sounds. CARDIAC: Regular rate, normal rhythm. Extremities warm and well perfused. Pulses equal. ABDOMEN: Soft, non-distended. No tenderness to palpation. No rebound or guarding. No masses. RECTAL: Deferred. MUSCULOSKELETAL: Chest examination reveals no tenderness. The back is symmetrical on inspection without obvious abnormality. There is no CVA tenderness to palpation. No joint edema. LOWER EXTREMITIES: Calves are equal size bilaterally and non-tender. No edema. No discoloration. NEURO: Normal sensorium. No sensory or motor deficits noted. SKIN: No rash or jaundice noted. Course Course 1029: Past medical records reviewed. The patient was evaluated in room A2. A complete history and physical exam was performed. 1236: I reviewed the patient's case with Loni Solano. Dr. Lizbeth Solano will evaluate the patient for further management. Consultations Consultation #1: I reviewed the patient's case with Loni Solano. Dr. Lizbeth Solano will evaluate the patient for further management. Time: 12:36 Administered Medications Albuterol (Duoneb) 3 ml NEB QIDR [facility] Stop: 12/21/19 14:59 Last Admin: 11/22/19 08:47 Dose: 3 ml Documented by: [id number] Admin: 11/21/19 19:09 Dose: 3 ml Documented by: [id number] Admin: 11/21/19 15:36 Dose: 3 ml Documented by: [id number] Amlodipine Besylate (Norvasc) 5 mg PO DAILY [facility] Stop: 12/22/19 08:59 Last Admin: 11/22/19 08:23 Dose: 5 mg Documented by: [id number] Ferrous Sulfate (Feosol) 325 mg PO BIDM [facility] Stop: 12/21/19 16:59 Last Admin: 11/22/19 08:23 Dose: 325 mg Documented by: [id number] Admin: 11/21/19 17:08 Dose: 325 mg Documented by: [id number] Furosemide 80 mg/ Syringe 8 mls @ 4 mls/min IV [id number] [facility] Stop: 12/21/19 14:59 Last Admin: 11/22/19 08:23 Dose: 4 mls/min Documented by: [id number] Admin: 11/21/19 20:10 Dose: 4 mls/min Documented by: [id number] Admin: 11/21/19 16:03 Dose: 4 mls/min Documented by: [id number] Insulin Aspart (Novolog Flexpen) 0 units SC ACHS [facility] Stop: 12/21/19 16:29 Last Admin: 11/22/19 08:25 Dose: 10 units Documented by: [id number] Cosigned by: [id number] Admin: 11/21/19 21:38 Dose: 7 units Documented by: [id number] Cosigned by: [id number] Admin: 11/21/19 17:07 Dose: 6 units Documented by: [id number] Cosigned by: [id number] Insulin Glargine (Lantus Solostar Pen) 0 units SC BID [facility]; Protocol Stop: 12/21/19 20:59 Last Admin: 11/22/19 08:24 Dose: 8 units Documented by: [id number] Cosigned by: [id number] Admin: 11/21/19 21:36 Dose: 8 units Documented by: [id number] Cosigned by: [id number] Levetiracetam (Keppra) 500 mg PO BID [facility] Stop: 12/21/19 20:59 Last Admin: 11/22/19 08:23 Dose: 500 mg Documented by: [id number] Admin: 11/21/19 21:36 Dose: 500 mg Documented by: [id number] Lovastatin (Mevacor) 80 mg PO HS [facility] Stop: 12/21/19 20:59 Last Admin: 11/21/19 21:35 Dose: 80 mg Documented by: [id number] Metoprolol Succinate (Toprol Xl) 50 mg PO DAILY [facility] Stop: 12/22/19 08:59 Last Admin: 11/22/19 08:24 Dose: 50 mg Documented by: [id number] Sertraline HCl (Zoloft) 25 mg PO DAILY [facility] Stop: 12/22/19 08:59 Last Admin: 11/22/19 08:23 Dose: 25 mg Documented by: [id number] Vitamin D (Vitamin D3) 2,000 units PO DAILY [facility] Stop: 12/22/19 08:59 Last Admin: 11/22/19 08:24 Dose: 2,000 units Documented by: [id number] Discontinued Medications Furosemide (Lasix) 40 mg IV NOW STA Stop: 11/21/19 11:03 Last Admin: 11/21/19 11:10 Dose: 40 mg Documented by: [id number] Methylprednisolone 60 mg/ (Syringe) 1.96 mls @ 1.5 mls/min IV NOW STA Stop: 11/21/19 10:35 Last Admin: 11/21/19 10:51 Dose: Not Given Documented by: [id number] Magnesium Sulfate/Dextrose (Magnesium Sulfate / D5w) 1 gm in 100 mls @ 100 mls/hr IV ONE ONE Stop: 11/21/19 11:31 Last Infusion: 11/21/19 12:14 Dose: 0 mls/hr Documented by: [id number] Admin: 11/21/19 10:50 Dose: 100 mls/hr Documented by: [id number] Levalbuterol HCl (Xopenex 1.25mg/3ml Neb) 1.25 mg NEB NOW STA Stop: 11/21/19 10:33 Last Admin: 11/21/19 10:54 Dose: 1.25 mg Documented by: [id number] Methylprednisolone (Solumedrol) Confirm Administered Dose 125 mg .ROUTE .STK-MED ONE Stop: 11/21/19 10:50 Last Admin: 11/21/19 10:50 Dose: 60 mg Documented by: [id number] Medical Decision Making Differential Diagnosis Differential diagnosis: Etiologies such as infections, reactive airway disease, pneumonia, pneumothorax, COPD, CHF, cardiac ischemia, pulmonary embolism, musculoskeletal, gastrointestinal, as well as others were entertained. Medical Records Attestation: I reviewed the patient's medical records. Home Medications Current Medication List: was personally reviewed by me Laboratory Data Attestation: I reviewed the patient's lab results. Result diagrams: 11/22/19 06:33 11/22/19 06:33 Lab Results 11/21/19 11/21/19 11/21/19 Range/Units 10:35 10:35 10:35 WBC 12.84 H (4.8-10.8) K/uL RBC 4.14 L (4.7-6.1) M/uL Hgb 12.2 L (14.0-18.0) g/dL Hct 37.7 L (42-52) % MCV 91.1 (80-100) fL MCH 29.5 (25-34) pg MCHC 32.4 (32-36) g/dL RDW Std Deviation 49.2 H (36.4-46.3) fL RDW Coeff of Kiah 14.7 H (11.5-14.5) % Plt Count 235 (130-400) K/uL MPV 9.7 (7.4-10.4) fL Immature Gran % (Auto) 0.2 % Neut % (Auto) 87.6 % Lymph % (Auto) 4.4 % Woodruff % (Auto) 7.5 % Eos % (Auto) 0.1 % Baso % (Auto) 0.2 % Immature Gran # (Auto) 0.02 (0.00-0.02) K/uL Neut # (Auto) 11.26 H (1.4-6.5) K/uL Lymph # (Auto) 0.57 L (1.2-3.4) K/uL Woodruff # (Auto) 0.96 H (0.11-0.59) K/uL Eos # (Auto) 0.01 (0-0.5) K/uL Baso # (Auto) 0.02 (0-0.2) K/uL Sodium 140 (136-145) mmol/L Potassium 3.7 (3.5-5.1) mmol/L Chloride 101 (98-107) mmol/L Carbon Dioxide 35 H (21-32) mmol/L Anion Gap 4.0 (3-11) BUN 40 H (7-18) mg/dl Creatinine 3.01 H (0.6-1.4) mg/dl Est Cr Clr Drug Dosing 26.0 ml/min Est GFR ( Amer) 21.8 Est GFR (Non-Af Amer) 18.8 BUN/Creatinine Ratio 13.2 (10-20) Glucose 137 H (70-99) mg/dl Calcium 9.6 (8.5-10.1) mg/dl Total Bilirubin 0.6 (0.2-1) mg/dl AST 13 L (15-37) U/L ALT 21 (12-78) U/L Alkaline Phosphatase 60 (45-117) U/L Total Creatine Kinase 53 (39-308) U/L CK-MB (CK-2) 1.0 (0.5-3.6) ng/ml CK/CKMB % Calc 1.9 (0-3.0) Troponin I < 0.015 (0-0.045) ng/ml NT-Pro-B Natriuret Pep 3793 H (0-1800) pg/ml Total Protein 7.2 (6.4-8.2) gm/dl Albumin 3.1 L (3.4-5.0) gm/dl Globulin 4.1 H (2.5-4.0) gm/dl Albumin/Globulin Ratio 0.8 L (0.9-2) Lipase 114 (73-393) U/L Procalcitonin (0-0.5) ng/ml TSH 2.410 (0.300-4.500) uIu/ml 11/21/19 Range/Units 10:35 WBC (4.8-10.8) K/uL RBC (4.7-6.1) M/uL Hgb (14.0-18.0) g/dL Hct (42-52) % MCV (80-100) fL MCH (25-34) pg MCHC (32-36) g/dL RDW Std Deviation (36.4-46.3) fL RDW Coeff of Kiah (11.5-14.5) % Plt Count (130-400) K/uL MPV (7.4-10.4) fL Immature Gran % (Auto) % Neut % (Auto) % Lymph % (Auto) % Woodruff % (Auto) % Eos % (Auto) % Baso % (Auto) % Immature Gran # (Auto) (0.00-0.02) K/uL Neut # (Auto) (1.4-6.5) K/uL Lymph # (Auto) (1.2-3.4) K/uL Woodruff # (Auto) (0.11-0.59) K/uL Eos # (Auto) (0-0.5) K/uL Baso # (Auto) (0-0.2) K/uL Sodium (136-145) mmol/L Potassium (3.5-5.1) mmol/L Chloride (98-107) mmol/L Carbon Dioxide (21-32) mmol/L Anion Gap (3-11) BUN (7-18) mg/dl Creatinine (0.6-1.4) mg/dl Est Cr Clr Drug Dosing ml/min Est GFR ( Amer) Est GFR (Non-Af Amer) BUN/Creatinine Ratio (10-20) Glucose (70-99) mg/dl Calcium (8.5-10.1) mg/dl Total Bilirubin (0.2-1) mg/dl AST (15-37) U/L ALT (12-78) U/L Alkaline Phosphatase (45-117) U/L Total Creatine Kinase (39-308) U/L CK-MB (CK-2) (0.5-3.6) ng/ml CK/CKMB % Calc (0-3.0) Troponin I (0-0.045) ng/ml NT-Pro-B Natriuret Pep (0-1800) pg/ml Total Protein (6.4-8.2) gm/dl Albumin (3.4-5.0) gm/dl Globulin (2.5-4.0) gm/dl Albumin/Globulin Ratio (0.9-2) Lipase (73-393) U/L Procalcitonin 1.49 H (0-0.5) ng/ml TSH (0.300-4.500) uIu/ml Imaging Data Radiologist's Impression: Radiology results as stated below per my review and the radiologist's interpretation: XR chest 1V portable CLINICAL HISTORY: 79 years-old Male presenting with Chest Pain. TECHNIQUE: Portable upright AP view of the chest was obtained. COMPARISON: 09/19/2019. FINDINGS: Atherosclerosis of the aortic arch. Cardiac silhouette enlarged. Pulmonary vascular prominence and interstitial prominence increased from prior. Moderate to large left pleural effusion increased from prior. Small right pleural e ffusion. Poor aeration of the left lung base. No pneumothorax. IMPRESSION: 1. Moderate to large left pleural effusion with extensive left basilar atelectasis. 2. Volume overload and congestive change in the setting of cardiomegaly. Developing pulmonary edema not excluded. 3. Small right pleural effusion. ACT 112: Negative or not required by law. Electronically signed by: Robinson Allison M.D. 11/21/2019 10:56 AM ECG Data Attestation: I personally reviewed and interpreted this ECG as follows: Indication: + SOB/dyspnea Rate (beats per minute): 78 Rhythm: + sinus rhythm ECG Intervals/blocks: + First degree AV block ECG ST segments: no ST depression and no ST elevation ECG Findings: + Other (premature atrial complex; old anterior infarct; QTC 446) Blood Pressure Blood Pressure Findings: Elevated blood pressure Blood Pressure Disposition: further management by hospitalist MDM Narrative This is a 79-year-old male who presents emergency department complaining of shortness of breath. The patient has history of COPD as well as congestive heart failure. Chest x-ray suggests volume overload. He was given Lasix here in the emergency department and started on hour-long breathing treatment along with magnesium and Solu-Medrol. Patient remained hypoxic here therefore I did discuss the case with the hospitalist service who did agree to admit the patient. Patient family were in agreement with the treatment plan Impression & Plan Hypoxia, Acute on chronic diastolic (congestive) heart failure, COPD (chronic obstructive pulmonary disease) Discharge Plan Visit Data *Final* Discharge Date/Time: 11/21/19 14:04 Chief Complaint: Shortness of Breath/Dyspnea ED Provider: Apollo Hough Discharge Problem: Hypoxia, Acute on chronic diastolic (congestive) heart failure, COPD (chronic obstructive pulmonary disease) Patient Disposition: Admitted As Inpatient Discharge Instructions Interventions: ED Discharge Assessment Last Done: 11/21/19 14:04 Discharge Problem: COPD (chronic obstructive pulmonary disease) Qualifiers: COPD type: unspecified COPD Qualified Code(s): J44.9 - Chronic obstructive pulmonary disease, unspecified The scribe's documentation has been prepared under my direction and personally reviewed by me in its entirety. I confirm that the note above accurately reflects all work, treatment, procedures, and medical decision making performed by me.
[2019-11-21 14:07] LABS: Thyroid Stimulating Hormone 2.41 uIu/ml (0.300-4.500)
[2019-11-21] MEDS ORDERED: ONDANSETRON INJ 2 MG/ML 2 ML VIAL IV PRN (14:25)
[2019-11-21] MEDS ORDERED: CARBOHYDRATES FOR HYPOGLYCEMIA PO PRN (14:25)
[2019-11-21] MEDS ORDERED: DEXTROSE 50% 50 ML SYRINGE IV PRN (14:25)
[2019-11-21] MEDS ORDERED: GLUCOSE 40% GEL 15 GM TUBE PO PRN (14:25)
[2019-11-21] MEDS ORDERED: GLUCOSE 10 TABS/TUBE PO PRN (14:25)
[2019-11-21] MEDS ORDERED: ACETAMINOPHEN 325 MG TAB PO PRN (14:25)
[2019-11-21] MEDS ORDERED: GLUCAGON FOR INJ 1 MG VIAL SQ PRN (14:25)
[2019-11-21 15:20] LABS: Appearance Urine Clear (Clear); Bacteria Urine Automated Negative (Negative); Bilirubin Urine Negative (Negative); Blood Urine Trace (Negative); Color Urine Yellow; Epithelial Cell Urine Auto >30 /lpf (0-5); Glucose Urine UA Negative (Negative); Ketones Urine Negative (Negative); Leukocyte Esterase Urine Negative (Negative); Nitrite Urine Negative (Negative); Protein Urine 3+ (Negative); RBC Urine Automated 0-4 /hpf (0-4); Specific Gravity Urine 1.013 (1.000-1.030); Urobilinogen Urine Negative (Negative)
[2019-11-21 15:33] LABS: Renal Epithelial Cells Urine 0-5 /lpf (0-5)
[2019-11-21] MEDS: ALBUT/IPRATROP 3MG/0.5MG NEB 3 ML VIAL NEB SCH ×2 (15:36→19:09)
[2019-11-21] MEDS: FUROSEMIDE 80 MG in SYRINGE 0 ML IV SCH ×2 (16:03→20:10)
[2019-11-21] MEDS: INSULIN ASPART 100 UNITS/ML 3 ML PEN SC SCH ×2 (17:07→21:38)
[2019-11-21] MEDS: FERROUS SULFATE 325 MG TAB PO SCH (17:08)
[2019-11-21] MEDS: LOVASTATIN 20 MG TAB PO SCH (21:35)
[2019-11-21] MEDS: INSULIN GLARGINE SOLOSTAR 100 UNITS/ML 3 ML PEN SC SCH (21:36)
[2019-11-21] MEDS: levETIRAcetam 500 MG TAB PO SCH (21:36)
[2019-11-22 06:46] LABS: Basophils # (auto) 0.01 K/uL (0-0.2); Basophils % (auto) 0.1 %; Hematocrit (blood only) 32.3 % (42-52); Hemoglobin 10.4 g/dL (14.0-18.0); Immature Granulocytes # (auto) 0.02 K/uL (0.00-0.02); Immature Granulocytes % (auto) 0.1 %; Lymphocytes # (auto) 0.81 K/uL (1.2-3.4); Lymphocytes % (auto) 5.7 %; Mean Corpuscular Hemoglobin 29.3 pg (25-34); Mean Corpuscular Hgb Conc 32.2 g/dL (32-36); Mean Platelet Volume 9.8 fL (7.4-10.4); Monocytes # (auto) 1.42 K/uL (0.11-0.59); Neutrophils # (auto) 11.91 K/uL (1.4-6.5); Neutrophils % (auto) 84.1 %; Platelet Count 203 K/uL (130-400); RDW Coefficient of Variation 14.3 % (11.5-14.5); RDW Standard Deviation 47.8 fL (36.4-46.3); Red Blood Count 3.55 M/uL (4.7-6.1); White Blood Count 14.17 K/uL (4.8-10.8)
--- NOTE | 2019-11-22 07:02 | XRay Report ---
XR chest 1V portable CLINICAL HISTORY: follow up L pleural effusion COMPARISON STUDY: Chest radiograph November 21, 2019. FINDINGS: Metallic density projects over the right hemithorax. This is unchanged. Interstitial thicke carmel persists and suggests pulmonary edema. Left lung aeration has diminished. Interval left lung vol ume loss is noted since prior exam of November 21, 2019. A moderate to large left pleural effusion is noted. A 1.5 cm lucency projects over the left upper lung. IMPRESSION: 1. Interval decrease in left lung aeration with development of left lung volume loss. This is likely due to a combination of a moderate to large left pleural effusion with associated atelectasis. 2. Persistent pulmonary edema. 3. 1.5 cm lucency projects over the left upper lung. This likely reflects aerated lung surrounded by fluid. Trace pleural gas could appear similar. ACT 112: Negative or not required by law. Electronically signed by: Daniel Muñoz M.D. 11/22/2019 7:00 AM
[2019-11-22] MEDS ORDERED: ACETAMINOPHEN 325 MG TAB PO PRN (07:16)
[2019-11-22 07:19] LABS: Estimated Average Glucose 140 mg/dl; Hemoglobin A1C 6.5 % (4.5-5.6)
[2019-11-22 07:30] LABS: BUN Creatinine Ratio 15.4 (10-20); Calcium 8.8 mg/dl (8.5-10.1); Creatinine Clr Calc Pharmacy 23.2 ml/min; Est GFR (African American) 18.9; Est GFR (Non-African American) 16.3; Magnesium 2.2 mg/dl (1.8-2.4); Potassium 3.9 mmol/L (3.5-5.1)
[2019-11-22] MEDS: levETIRAcetam 500 MG TAB PO SCH ×2 (08:23→21:03)
[2019-11-22] MEDS: AMLODIPINE BESYLATE 5 MG TAB PO SCH (08:23)
[2019-11-22] MEDS: SERTRALINE HCL 50 MG TABLET PO SCH (08:23)
[2019-11-22] MEDS: FERROUS SULFATE 325 MG TAB PO SCH ×2 (08:23→17:15)
[2019-11-22] MEDS: FUROSEMIDE 80 MG in SYRINGE 0 ML IV SCH ×2 (08:23→17:14)
[2019-11-22] MEDS: CHOLECALCIFEROL 1,000 UNITS 25 MCG TAB PO SCH (08:24)
[2019-11-22] MEDS: INSULIN GLARGINE SOLOSTAR 100 UNITS/ML 3 ML PEN SC SCH ×2 (08:24→21:02)
[2019-11-22] MEDS: METOPROLOL SUCC 50MG EXT REL TAB PO SCH (08:24)
[2019-11-22] MEDS: INSULIN ASPART 100 UNITS/ML 3 ML PEN SC SCH ×4 (08:25→21:01)
[2019-11-22] MEDS: ALBUT/IPRATROP 3MG/0.5MG NEB 3 ML VIAL NEB SCH ×2 (08:47→11:22)
--- NOTE | 2019-11-22 11:27 | Hospitalist Progress Note ---
Date of Service November 22, 2019 Assessment & Plan (1) Acute and chronic respiratory failure: (2) Pleural effusion on left: (3) Acute on chronic diastolic (congestive) heart failure: -this is a patient with chronic respiratory failure who on baseline uses 2 liter/min of oxygen daily with likely contribution by COPD and current active smoker, whose acute respiratory failure process from left pleural effusion likely to acute on chronic diastolic congestive failure which has now incr eased oxygen requirements to 4 liters/min -11/22/19: Patient on nasal cannula oxygen. Patient feels subjectively better than compared to yesterday. However Chest X ray shows persistent pulmonary edema and the left lung volume loss may have delineated unchanged or worsening of size of left pleural effusion. Discussed with patient since oxygen requirements able to be brought down by 11/22/19 that depending on diuresis and planned 11/23/19 that patient may need evaluation with thoracentesis to left lung. Patient is NPO after midnight -continue Lasix 80 mg IV BID for now (4) Severe chronic obstructive pulmonary disease: -does not appear to have COPD exacerbation at this time at this time -received 1 time dose of steroid in ED, no further respiratory steroids needed at this time -de-escalate scheduled Duonebs to prn basis as active respiratory issues from pulmonary edema and left pleural effusion and not from upper airway (5) CARLOS ALBERTO (obstructive sleep apnea): -does not use cpap -uses o2 via NC at HS (6) CKD (chronic kidney disease), stage IV: acute kidney injury on chronic kidney disease stage IV -baseline creatinine is 3 -creatinine rising to 3.3 on 11/22/19 -rises in creatinine is from diuretic use, continue to monitor (7) Atrial fibrillation: Paroxysmal atrial fibrillation -continue metoprolol -patient is not on systemic anticoagulation because he had subdural hematoma while on coumadin in March 2019 -continue Keppra for seizure prophylaxis (8) Diabetes mellitus, type 2: Type 2 diabetes mellitus without residential current of insulin -HbA1C 6.6 08/2019 -hold home dose glipizide and Victoza -insulin as per protocol (9) HTN (hypertension), benign: blood pressure stable continue amlodipine, metoprolol hold home torsemide (10) Dyslipidemia: continue statin (11) Tobacco use disorder: -smoking cessation encouraged -nicotine patch was offered but patient declined (12) Depression: -continue home dose sertraline (13) AAA (abdominal aortic aneurysm): AAA noted on CT abd/pelvis 5.2 x 5.0cm infrarenal AA on 07/26/19 per [facility] records pt does not have follow up Would recommend close follow up with vascular as outpt post discharge (14) DVT prophylaxis: SCD/TEDS for now in light of previous SDH 03/2019 Disposition: admit to PCU Follow up: PCP Dr. Colon upon discharge Subjective Patient on nasal cannula oxygen. Patient feels subjectively better than compared to yesterday. However Chest X ray shows persistent pulmonary edema and the left lung volume loss may have delineated unchanged or worsening of size of left pleural effusion. Discussed with patient since oxygen requirements able to be brought down by 11/22/19 that depending on diuresis and planned 11/23/19 that patient may need evaluation with thoracentesis to left lung. Patient is NPO after midnight patient denies chest pain. no palpitations. no headache. no dizziness. no light headedness Review of Systems Review of Systems: All systems reviewed & are unremarkable except as noted in HPI & below Physical Exam Constitutional: comfortable Eyes: PERRL, conjunctivae normal, anicteric sclerae EOM intact bilaterally ENMT: external ear and nose normal, oropharynx normal Neck: normal visual inspection Respiratory: Auscultation: + crackles Cardiovascular: Rate/Rhythm: regular rate Gastrointestinal (Abdomen): normal bowel sounds, soft, nontender, no hepatosplenomegaly Musculoskeletal: Head/Neck/Chest: normocephalic and head atraumatic Neurologic: PERRL, EOMI, accommodation nl, no face palsy, no dysarthria CN's II-XI intact bilaterally Psychiatric: A+Ox3, euthymic affect Results & Data Vital Signs (Past 12 Hours) Vital Signs Temp Pulse Pulse Resp BP Pulse Ox 11/22/19 11:25 72 18 92 11/22/19 08:49 69 18 98 11/22/19 07:48 70 11/22/19 07:41 37.0 C 75 21 127/75 95 11/22/19 03:30 37.3 C 63 18 125/66 96 11/22/19 00:20 38.1 C H 76 19 147/62 H 96 (1) Atrial fibrillation Atrial fibrillation type: paroxysmal Qualified Code(s): I48.0 - Paroxysmal atrial fibrillation
[2019-11-22] MEDS ORDERED: ALBUT/IPRATROP 3MG/0.5MG NEB 3 ML VIAL NEB PRN (11:29)
--- NOTE | 2019-11-22 13:35 | Pulmonary Consultation ---
Date of Consultation November 22, 2019 Assessment & Plan (1) Acute and chronic respiratory failure with hypoxia: -- Acute on chronic hypoxic respiratory failure Likely secondary to volume overload due to underlying CKD with HFpEF --> continue with diuresis as tolerated keep negative balance Patient has no sign of sepsis, no fever or chills, cough has no change in intensity frequency or amount. Procalcitonin is a bit elevated but in a patient who has CKD. Continue with O2 supplementation to keep O2 saturation between 88 to 92% BiPAP nightly and PRN shortness of breath -- Bilateral pleural effusion more on the left side Patient is and not a acute distress right now Patient not on any blood thinners. Plan to do thoracentesis tomorrow Risk and benefits of the procedure explained to the patient in depth. All questions were answered appropriately. -- COPD Continue with inhaled therapy Patient does not feel to be an exacerbation -- Active smoker with greater than [id number] smoking history Advised to quit --High probability of CARLOS ALBERTO Needs outpatient sleep study Continue with BiPAP nightly and PRN shortness of breath while in the hospital. (2) CARLOS ALBERTO (obstructive sleep apnea): (3) Atrial fibrillation: Atrial fibrillation type: paroxysmal Qualified Code(s): I48.0 - Paroxysmal atrial fibrillation (4) CKD (chronic kidney disease), stage IV: (5) Chronic diastolic heart failure: (6) Pleural effusion: History of Present Illness Attending Physician: Elliot Marlow MD History of Present Illness 79-year-old male with past medical history of CKD stage IV with mature right AV fistula forearm, A. fib not on anticoagulation secondary to subdural hematoma in March 2019, stage II diastolic CHF, hypertension, COPD on 3 to 4 L nasal cannula at home comes to the hospital with complaints of worsening shortness of breath going on since last week. It got worse to such an extent that he was not able to do his day-to-day activities. Patient stated that he gained approximately 7 pounds during that duration. Patient does have productive cough which is every day in the morning and in the evening which is usually clear. Denies any change in consistency of cough or frequency of cough. Denies any chest pain, no hemoptysis, no dizziness, no headache, no nausea or vomiting. Appetite is good. No dysuria, no diarrhea, no hematuria, no hematochezia. Patient was recently given a course of azithromycin as he was not feeling well. Social history: Greater than [id number] active smoker, denies any illicit drug use, no alcohol use. Positive asbestos exposure in the past as per the patient. Has dogs and cat at home. Not allergic to either of them. Denies any history of lung cancer in the family. Allergies Allergy/AdvReac Type Severity Reaction Status Date / Time codeine AdvReac Intermediate NAUSEA Verified 11/21/19 11:46 Home Medications Home Medications Medication Instructions Recorded Confirmed Type Victoza 2-Fernando 1.2 mg SUBCUT DAILY 02/09/19 11/21/19 History cholecalciferol (vitamin D3) 2,000 units PO DAILY 02/09/19 11/21/19 History glipizide 10 mg PO BID 02/09/19 11/21/19 History lovastatin 80 mg PO HS 02/09/19 11/21/19 History levetiracetam 500 mg PO BID 05/10/19 11/21/19 History acetaminophen 650 mg PO Q6H PRN 07/06/19 11/21/19 History amlodipine 5 mg PO DAILY 09/15/19 11/21/19 History torsemide 80 mg PO DAILY 30 Days #120 tab 09/19/19 11/21/19 Rx ferrous sulfate 325 mg (65 mg 325 mg PO BID 10/12/19 11/21/19 History iron) tablet metoprolol succinate 50 mg PO DAILY 11/21/19 11/21/19 History sertraline 25 mg PO DAILY 11/21/19 11/21/19 History Patient History Medical History (Updated 11/22/19 @ 13:34 by Mary Borrero MD) AAA (abdominal aortic aneurysm) Atrial fibrillation (Chronic) dx 2015 - no longer taking warfarin - recent fall w/ brain bleed 03/2019 Chronic diastolic heart failure Chronic systolic heart failure (Chronic) CKD (chronic kidney disease), stage IV Diabetes mellitus, type 2 (Chronic) Dyslipidemia (Chronic) History of CVA (cerebrovascular accident) (Chronic) 2015 - dx w/ a.fib - [facility] - no deficits History of seizure (Resolved) history obtained from dtr - unsure of last seizure 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 - fall - [place] ER visit 03/30/2019 --> [facility] [place] HTN (hypertension), benign (Chronic) Nocturnal hypoxemia CARLOS ALBERTO (obstructive sleep apnea) (Chronic) does not tolerate CPAP Severe chronic obstructive pulmonary disease Tobacco use disorder (Chronic) Surgical History History of back surgery (Resolved) History of cataract surgery (Chronic) History of colonoscopy (Chronic) History of esophagogastroduodenoscopy (EGD) (Chronic) History of lumbar spinal fusion (Chronic) x 2 History of tooth extraction (Chronic) Family History Mother Cancer Brother Diabetes Heart disease Social History Preferred Language: German Communication Ability: Effective Partner Alliance Manager Required: No Beliefs That Will Affect Care: None marital status: Current Living Situation: Spouse and Family Other Information That Helps Us Care for You: No Feels Safe at Home: Yes Safety Concerns: Feels Safe At This Time Smoking Status: Current every day smoker Tobacco Type: cigarettes ; Cigarettes Per Day: 6 ; Do You Dip or Chew Tobacco: No ; Second Hand Exposure: No ; Tobacco Cessation Education Requested by Patient: No Hx Alcohol Use: No Hx Substance Use: No Review of Systems Review of Systems: All systems reviewed & are unremarkable except as noted in HPI & below Physical Exam Physical Exam: Constitutional: No acute distress HEENT: EOMI, PERRLA, Yanna Maria T 4 Respiratory system: Decreased air entry bilaterally, more decreased on the left side, positive crackles bilateral lower lobes, no wheeze, no rhonchi CVS: S1-S2 positive, accentuated P2 Abdomen: Soft, nontender, nondistended, positive bowel sounds x4 Extremities: +2 pulses bilaterally radialis/ dorsalis pedis, no cyanosis, +2 pitting edema bilateral lower extremity, right arm AV fistula with positive thrill Neuro: Awake alert oriented x3 Psych: Normal mood and affect G/U: No Bailey Skin: no rashes, warm and dry Lymphatic: no cervical or axillary lymphadenopathy Results & Data Vital Signs (Past 12 Hours) Vital Signs Temp Pulse Pulse Resp BP Pulse Ox 11/22/19 11:40 37.2 C 96 H 23 120/50 L 92 11/22/19 11:25 72 18 92 11/22/19 08:49 69 18 98 12/25/19 07:48 70 11/22/19 07:41 37.0 C 75 21 127/75 95 11/22/19 03:30 37.3 C 63 18 125/66 96 11/22/19 06:33 11/22/19 06:33 11/21/19 13:48 VBG pH 7.34 L VBG pCO2 66 H VBG pO2 50 VBG HCO3 35 VBG O2 Saturation 84.0 VBG Base Excess 7.2 PG Care Time/CCT Total # of Minutes Spent Total Time Spent with Patient: Total time spent is greater than 50% in coordination of care (as documented) at patient's floor/unit and/or counseling patient:
[2019-11-22] MEDS: LOVASTATIN 20 MG TAB PO SCH (21:04)
[2019-11-23] MEDS: AMLODIPINE BESYLATE 5 MG TAB PO SCH (07:45)
[2019-11-23] MEDS: CHOLECALCIFEROL 1,000 UNITS 25 MCG TAB PO SCH (07:45)
[2019-11-23] MEDS: SERTRALINE HCL 50 MG TABLET PO SCH (07:46)
[2019-11-23] MEDS: levETIRAcetam 500 MG TAB PO SCH ×2 (07:47→21:20)
[2019-11-23] MEDS: FERROUS SULFATE 325 MG TAB PO SCH ×2 (07:47→17:48)
[2019-11-23] MEDS: INSULIN GLARGINE SOLOSTAR 100 UNITS/ML 3 ML PEN SC SCH ×2 (07:48→21:18)
[2019-11-23] MEDS: INSULIN ASPART 100 UNITS/ML 3 ML PEN SC SCH ×4 (07:49→21:16)
[2019-11-23] MEDS: FUROSEMIDE 80 MG in SYRINGE 0 ML IV SCH ×2 (08:19→18:15)
[2019-11-23] MEDS: METOPROLOL SUCC 50MG EXT REL TAB PO SCH (09:00)
--- NOTE | 2019-11-23 09:37 | Hospitalist Progress Note ---
Date of Service November 23, 2019 Assessment & Plan (1) Acute and chronic respiratory failure: -this is a patient with chronic respiratory failure who on baseline uses 2 liter/min of oxygen daily with likely contribution by COPD and current active smoker, whose acute respiratory failure process from left pleural effusion likely to acute on chronic diastolic congestive failure which has now increased oxygen requirements to 4 liters/min on admission on 11/21/19 (2) Pleural effusion on left: -is awaiting pulmonary doctor to perform thoracentesis of left pleural effusion on 11/23/19 (3) Acute on chronic diastolic (congestive) heart failure: -continue Lasix 80 mg IV BID for now (4) Severe chronic obstructive pulmonary disease: -does not appear to have COPD exacerbation at this time at this time -received 1 time dose of steroid in ED, no further respiratory steroids needed at this time -currently on prn Duonebs (5) CARLOS ALBERTO (obstructive sleep apnea): -does not use CPAP at home, uses supplementary oxygen via Nasal cannula at night at home -BIPAP only 2 hours on night of 11/22/19 because patient did not want it or could not tolerate it (6) CKD (chronic kidney disease), stage IV: acute kidney injury on chronic kidney disease stage IV -baseline creatinine is 3 -creatinine rising to 3.3 on 11/22/19 -rises in creatinine is from diuretic use, continue to monitor -hope that after planned thoracentesis on 11/23/19 that diuretic use can be reduced -patient has right upper extremity access for dialysis if needed - will discuss with nephrology on consultation on 11/23/19 what are patient's likelihood of dialysis in near future (7) Atrial fibrillation: Paroxysmal atrial fibrillation -continue metoprolol -patient is not on systemic anticoagulation because he had subdural hematoma while on coumadin in March 2019 -continue Keppra for seizure prophylaxis -telemetry with rate controlled atrial fibrillation (8) Diabetes mellitus, type 2: Type 2 diabetes mellitus without termite treater current of insulin -HbA1C 6.6 08/2019 -hold home dose glipizide and Victoza -insulin as per protocol (9) HTN (hypertension), benign: -continue amlodipine, metoprolol -diuretics (10) Dyslipidemia: -continue statin (11) Tobacco use disorder: -smoking cessation encouraged -nicotine patch was offered but patient declined (12) Depression: -continue home dose sertraline (13) AAA (abdominal aortic aneurysm): -AAA noted on CT abd/pelvis 5.2 x 5.0cm infrarenal AA on 07/26/19 per EPIC records pt does not have follow up Would recommend close follow up with vascular as outpt post discharge (14) DVT prophylaxis: SCD/TEDS for now in light of previous SDH 03/2019 Follow up: PCP Dr. Colon upon discharge Subjective Patient seen and examined at bedside. On nasal cannula 3 liters/min. he is awaiting pulmonary doctor to perform thoracentesis of left pleural effusion. appears comfortable. not in acute distress. able to sit up and follow directions. Review of Systems Review of Systems: All systems reviewed & are unremarkable except as noted in HPI & below Physical Exam Constitutional: comfortable Eyes: PERRL, conjunctivae normal, anicteric sclerae EOM intact bilaterally ENMT: external ear and nose normal, oropharynx normal Neck: normal visual inspection Respiratory: Auscultation: + crackles Cardiovascular: Rate/Rhythm: regular rate and + irregularly irregular Gastrointestinal (Abdomen): normal bowel sounds, soft, nontender, no hepatosplenomegaly Musculoskeletal: Head/Neck/Chest: normocephalic and head atraumatic Neurologic: PERRL, EOMI, accommodation nl, no face palsy, no dysarthria CN's II-XI intact bilaterally Psychiatric: A+Ox3, euthymic affect Results & Data Vital Signs (Past 12 Hours) Vital Signs Temp Pulse Pulse Resp BP Pulse Ox 11/23/19 07:52 37.2 C 86 20 128/95 94 11/23/19 04:49 37.1 C 86 19 128/63 95 11/23/19 00:19 36.4 C L 85 19 138/64 94 11/22/19 22:05 78 20 94 (1) Atrial fibrillation Atrial fibrillation type: paroxysmal Qualified Code(s): I48.0 - Paroxysmal atrial fibrillation
[2019-11-23] MEDS ORDERED: SODIUM CHLORIDE 0.9% 1000ML 1,000 ML IV PRN (11:07)
--- NOTE | 2019-11-23 11:11 | Nephrology Consultation ---
Date of Consultation November 23, 2019 Assessment & Plan (1) ESRD (end stage renal disease): consider this pt ESRD d/t recurrent admissions w/ volume overload having failed OP diuretics. BP generally acceptable; urine sediment w/ known nephrotic profile c/w previous and no uti; serum chemistries acceptable; stable mild anemia w/ hgb in 10s and plts wnl -for thoracentesis today -later today after that 2 hr HD using AVF no fluid removal -plan HD tomorrow and Wednesday as well -pls consult case mgt for admission to [facility] hopefully to start next wednesday--pt and son aware/ d/w them -will manage anemia on dialysis-transferrin satn ordered for am -daily bmp, hgb pls -I will contact [facility] w/ admission orders on 11/24 Present on Admission?: Yes History of Present Illness Reason for Consultation: brandee on CKD4 needing diuresis Requesting Physician: Dr Marlow Attending Physician: Elliot Marlow MD History of Present Illness 79 y/o M whom I'm asked to see for volume management/BRANDEE on CKD after he was a dmitted 11/21 w/ acute on chronic respiratory failure and acute on chronic HFpEF as well as L pleural effusion. He presented w/ a week of worsening dyspnea at rest and w/ exertion as well as weight gain of about 7 lb, worsening lethargy, productive cough. PMH includes AF off of AC d/t 03/2019 SDH, DM2, CKD 4 baseline creatinine in mid 3s w/ mature AVF, HTN, COPD, active tobacco abuse, AAA, CARLOS ALBERTO on nocturnal 02. He follows w/ my partner Dr Kolb in CKD clinic. This is his 4th admission since June for volume overload. He is for L thoracentesis today. He gives little history this morning d/t fatigue, reluctance to participate; his son is at bedside and answers most of my questions. No recent specific acute illness but did have recent Z fernando from pcp for lingering cough: did not improve his sx. Allergies Allergy/AdvReac Type Severity Reaction Status Date / Time codeine AdvReac Intermediate NAUSEA Verified 11/21/19 11:46 Home Medications Home Medications Medication Instructions Recorded Confirmed Type Victoza 2-Fernando 1.2 mg SUBCUT DAILY 02/09/19 11/21/19 History cholecalciferol (vitamin D3) 2,000 units PO DAILY 02/09/19 11/21/19 History glipizide 10 mg PO BID 02/09/19 11/21/19 History lovastatin 80 mg PO HS 02/09/19 11/21/19 History levetiracetam 500 mg PO BID 05/10/19 11/21/19 History acetaminophen 650 mg PO Q6H PRN 07/06/19 11/21/19 History amlodipine 5 mg PO DAILY 09/15/19 11/21/19 History torsemide 80 mg PO DAILY 30 Days #120 tab 09/19/19 11/21/19 Rx ferrous sulfate 325 mg (65 mg 325 mg PO BID 10/12/19 11/21/19 History iron) tablet metoprolol succinate 50 mg PO DAILY 11/21/19 11/21/19 History sertraline 25 mg PO DAILY 11/21/19 11/21/19 History Patient History Medical History AAA (abdominal aortic aneurysm) Atrial fibrillation (Chronic) dx 2016 - no longer taking warfarin - recent fall w/ brain bleed 03/2019 Chronic diastolic heart failure Chronic systolic heart failure (Chronic) CKD (chronic kidney disease), stage IV Diabetes mellitus, type 2 (Chronic) Dyslipidemia (Chronic) ESRD (end stage renal disease) History of CVA (cerebrovascular accident) (Chronic) 2015 - dx w/ a.fib - [facility] - no deficits History of seizure (Resolved) history obtained from dtr - unsure of last seizure 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 - fall - [place] ER visit 03/30/2019 --> [facility] [place] HTN (hypertension), benign (Chronic) Nocturnal hypoxemia CARLOS ALBERTO (obstructive sleep apnea) (Chronic) does not tolerate CPAP Severe chronic obstructive pulmonary disease Tobacco use disorder (Chronic) Surgical History History of back surgery (Resolved) History of cataract surgery (Chronic) History of colonoscopy (Chronic) History of esophagogastroduodenoscopy (EGD) (Chronic) History of lumbar spinal fusion (Chronic) x 2 History of tooth extraction (Chronic) Family History Mother Cancer Brother Diabetes Heart disease Social History Preferred Language: Qatari Communication Ability: Effective 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 Beliefs That Will Affect Care: None marital status: Current Living Situation: Spouse and Family Other Information That Helps Us Care for You: No Feels Safe at Home: Yes Safety Concerns: Feels Safe At This Time Smoking Status: Current every day smoker Tobacco Type: cigarettes ; Cigarettes Per Day: 6 ; Do You Dip or Chew Tobacco: No ; Second Hand Exposure: No ; Tobacco Cessation Education Requested by Patient: No Hx Alcohol Use: No Hx Substance Use: No Review of Systems Review of Systems: All systems reviewed & are unremarkable except as noted in HPI & below Respiratory: as per Subjective / HPI Cardiovascular: + dyspnea on exertion and + orthopnea; no chest pain, no palpitations and no edema Genitourinary: no dysuria and no difficulty urinating Physical Exam Constitutional: well developed, + obese and + lethargic; no acute distress (lying on L side on 02NC, lethargic but arouseable) Eyes: EOM intact bilaterally ENMT: Ears: no external ear abnormality Nose: no external nose abnormality Mouth: + dry oral mucous membranes Neck: no nuchal rigidity Respiratory: normal respiratory effort Auscultation: + diminished lung sounds (BL post lynch); no crackles and no wheezes Cardiovascular: Rate/Rhythm: regular rate and regular rhythm Heart Sounds: + murmur Extremities: + AV fistula (+ t/b, 0.5 cm wide, non tortuous) Gastrointestinal (Abdomen): Inspection/Auscultation: normal bowel sounds Percussion/Palpation: abdomen soft; abdomen nontender Musculoskeletal: Extremities: strength 5/5 throughout Skin: no rashes, warm and dry Neurologic: valle, limited speech- answers mostly in monosyllables, no tremor Psychiatric: Orientation: oriented to person and oriented to place Speech: + abnormal rate/rhythm/volume of speech Affect: + flat affect Insight: + limited insight Results & Data Vital Signs (Past 12 Hours) Vital Signs Temp Pulse Pulse Resp BP Pulse Ox Pulse Ox 11/23/19 09:00 90 94 11/23/19 08:00 95 11/23/19 07:52 37.2 C 86 20 128/95 94 11/23/19 04:49 37.1 C 86 19 128/63 95 11/23/19 00:19 36.4 C L 85 19 138/64 94 Laboratory Results 11/23/19 11:28 11/23/19 13:36 Diagnostic Findings cxr 11/21 1. Moderate to large left pleural effusion with extensive left basilar atelectasis. 2. Volume overload and congestive change in the setting of cardiomegaly. Developing pulmonary edema not excluded. 3. Small right pleural effusion.
[2019-11-23 11:47] LABS: Basophils # (auto) 0.01 K/uL (0-0.2); Basophils % (auto) 0.1 %; Eosinophils # (auto) 0.01 K/uL (0-0.5); Eosinophils % (auto) 0.1 %; Hematocrit (blood only) 34.5 % (42-52); Hemoglobin 10.8 g/dL (14.0-18.0); Immature Granulocytes # (auto) 0.01 K/uL (0.00-0.02); Immature Granulocytes % (auto) 0.1 %; Lymphocytes # (auto) 1.04 K/uL (1.2-3.4); Lymphocytes % (auto) 10.9 %; Mean Corpuscular Hemoglobin 28.9 pg (25-34); Mean Corpuscular Hgb Conc 31.3 g/dL (32-36); Mean Corpuscular Volume 92.2 fL (80-100); Mean Platelet Volume 9.8 fL (7.4-10.4); Monocytes # (auto) 1.08 K/uL (0.11-0.59); Monocytes % (auto) 11.4 %; Neutrophils # (auto) 7.36 K/uL (1.4-6.5); Neutrophils % (auto) 77.4 %; Platelet Count 199 K/uL (130-400); RDW Coefficient of Variation 14.5 % (11.5-14.5); RDW Standard Deviation 49.2 fL (36.4-46.3); Red Blood Count 3.74 M/uL (4.7-6.1); White Blood Count 9.51 K/uL (4.8-10.8)
[2019-11-23 12:22] LABS: Hepatitis B Surface Ab Quant < 3.10 mIU/mL (>or=10mIU/mL Immune); Hepatitis B Surface Antibody Non-Immune
--- NOTE | 2019-11-23 12:23 | Pulmonology Progress Note ---
Date of Service November 23, 2019 Assessment & Plan (1) Acute and chronic respiratory failure with hypoxia: -- Acute on chronic hypoxic respiratory failure Likely secondary to volume overload due to underlying CKD with HFpEF --> continue with diuresis as tolerated keep negative balance Patient has no sign of sepsis, no fever or chills, cough has no change in intensity frequency or amount. Procalcitonin is a bit elevated but in a patient who has CKD. Continue with O2 supplementation to keep O2 saturation between 88 to 92% BiPAP nightly and PRN shortness of breath -- Bilateral pleural effusion more on the left side Patient is and not a acute distress right now Patient not on any blood thinners. Plan to do thoracentesis today Risk and benefits of the procedure explained to the patient in depth. All questions were answered appropriately. Consent signed by the patient. -- COPD Continue with inhaled therapy Patient does not feel to be an exacerbation -- Active smoker with greater than [id number] smoking history Advised to quit --High probability of CARLOS ALBERTO Needs outpatient sleep study Continue with BiPAP nightly and PRN shortness of breath while in the hospital. (2) CARLOS ALBERTO (obstructive sleep apnea): (3) Atrial fibrillation: Atrial fibrillation type: paroxysmal Qualified Code(s): I48.0 - Paroxysmal atrial fibrillation (4) CKD (chronic kidney disease), stage IV: (5) Chronic diastolic heart failure: (6) Pleural effusion: Subjective Patient seen and examined at bedside. No acute distress, no adverse events overnight. Patient was sleeping at the time of examination on awakening patient denies any chest pain, shortness of breath is improved. No headache, no palpitation, no dizziness. No nausea vomiting. Appetite good. No diarrhea. Review of Systems Review of Systems: All systems reviewed & are unremarkable except as noted in HPI & below Physical Exam Physical Exam: Constitutional: No acute distress HEENT: EOMI, PERRLA, Mallam Maria T 4 Respiratory system: Decreased air entry bilaterally, more decreased on the left side, positive crackles bilateral lower lobes, no wheeze, no rhonchi CVS: S1-S2 positive, accentuated P2 Abdomen: Soft, nontender, nondistended, positive bowel sounds x4 Extremities: +2 pulses bilaterally radialis/ dorsalis pedis, no cyanosis, +2 pitting edema bilateral lower extremity, right arm AV fistula with positive thrill Neuro: Awake alert oriented x3 Psych: Normal mood and affect G/U: No Bailey Skin: no rashes, warm and dry Lymphatic: no cervical or axillary lymphadenopathy Results & Data Vital Signs (Past 12 Hours) Vital Signs Temp Pulse Pulse Resp BP Pulse Ox Pulse Ox 11/23/19 11:53 37 C 52 L 20 144/66 H 94 11/23/19 09:00 90 94 11/23/19 08:00 95 11/23/19 07:52 37.2 C 86 20 128/95 94 11/23/19 04:49 37.1 C 86 19 128/63 95 11/23/19 11:28 11/22/19 06:33 PG Care Time/CCT Total # of Minutes Spent Total Time Spent with Patient: Total time spent is greater than 50% in coordination of care (as documented) at patient's floor/unit and/or counseling patient:
[2019-11-23 12:32] LABS: Hepatitis B Surface Antigen Neg (Neg)
--- NOTE | 2019-11-23 13:25 | Procedure Note ---
Procedure Note Date of Service November 23, 2019 Procedure: Diagnostic therapeutic ultrasound-guided catheter thoracentesis Plant Health Manager: Dr. Mary Borrero Indication: Pleural effusion Consent: Signed by patient and verified with timeout prior to procedure Anesthesia: 1% lidocaine without epinephrine local. Procedure: Consent was verified and timeout performed. Appropriate imaging studies were reviewed prior to the procedure. Patient was placed in a seated position and limited thoracic ultrasound was performed of the left chest. See separate imaging. Appropriate site above the diaphragm for thoracentesis was selected. The skin was prepped and draped in normal sterile fashion. Lidocaine was used for local analgesia. Fluid was aspirated via the finder needle. A small skin anthony was made with the scalpel and the catheter over the needle apparatus was advanced over the rib into the pleural space. Using the syringe one-way valve system, a total of 1300 mL's of serous fluid was removed. The catheter was removed and observed to be intact. A sterile dressing was applied. Post procedure chest x-ray was ordered. Fluid was sent for labs, culture and cytology. The patient tolerated the procedure without obvious complication Good lung sliding was appreciated post procedure. Complications: None Blood loss: Less than 2 cc Coding CPT Codes Pulmonary/Thoracic - Pulmonary and Thoracic: 63013 Pleural drainage w/imaging ([id number])
--- NOTE | 2019-11-23 13:37 | XRay Report ---
XR chest 1V portable CLINICAL HISTORY: s/p left sided thoracentesis COMPARISON STUDY: 11/22/2019 FINDINGS: The heart remains enlarged. There is evidence for interval left-sided thoracentesis with de creasing left pleural fluid. No pneumothorax is visualized. There is radiographic evidence of congest izabel failure/fluid overload with pulmonary edema. There is a small right pleural effusion. There is mi ld elevation left hemidiaphragm. Metallic density again projects over the right midlung zone.[ IMPRESSION: 1. Persistent congestive failure/fluid overload 2. No evidence of pneumothorax status post left-sided thoracentesis ACT 112: Negative or not required by law. Electronically signed by: Lino Mae M.D. 11/23/2019 1:36 PM
[2019-11-23 13:54] LABS: Albumin Pleural Fluid 0.7 g/dl; Glucose Pleural Fluid 109 mg/dl
[2019-11-23 14:00] LABS: Amylase Pleural Fluid 17 U/L; LDH Pleural Fluid 107 U/L; Total Protein Pleural Fluid 1.3 g/dl; Triglyceride Pleural Fluid 14 mg/dl
[2019-11-23 14:08] LABS: Albumin Level 2.4 gm/dl (3.4-5.0); BUN Creatinine Ratio 17.8 (10-20); Calcium 8.7 mg/dl (8.5-10.1); Creatinine Clr Calc Pharmacy 24.4 ml/min; Est GFR (African American) 20.1; Est GFR (Non-African American) 17.3; Potassium 3.8 mmol/L (3.5-5.1)
[2019-11-23 14:14] LABS: Albumin Globulin Ratio 0.7 (0.9-2); Bilirubin,Total 0.5 mg/dl (0.2-1); Globulin 3.6 gm/dl (2.5-4.0)
[2019-11-23 14:33] LABS: Appearance Pleural Fluid CLEAR; Basophils, Fluid 0 %; Color Pleural Fluid PALE YELLOW; Eosinophils, Fluid 0 %; Lymphocytes, Fluid 22 %; Mono,Macrophage,Mesothelial 14 %; Neutrophils, Fluid 25 %; RBC Pleural Fluid (A) < 3000 /uL; Source Pleural Fluid LEFT LUNG; WBC Pleural Fluid (A) 300 /uL
[2019-11-23] MEDS: LOVASTATIN 20 MG TAB PO SCH (21:20)
[2019-11-24] MEDS ORDERED: SODIUM CHLORIDE 0.9% 1000ML 1,000 ML IV PRN (07:00)
[2019-11-24 08:28] LABS: Iron 26 mcg/dl (35-175); Transferrin 130 mg/dl (200-360); Transferrin Percent Saturation 14 % (20-50)
[2019-11-24] MEDS ORDERED: TORSEMIDE 10 MG TAB PO SCH (09:00)
[2019-11-24] MEDS ORDERED: IRON SUCROSE 100 MG in 0.9 % SODIUM CHLORIDE 100 ML IV SCH (09:00)
[2019-11-24] MEDS: INSULIN ASPART 100 UNITS/ML 3 ML PEN SC SCH ×4 (09:02→21:01)
[2019-11-24] MEDS: INSULIN GLARGINE SOLOSTAR 100 UNITS/ML 3 ML PEN SC SCH ×2 (09:02→21:03)
[2019-11-24] MEDS: TORSEMIDE 20 MG TAB PO SCH (09:04)
[2019-11-24] MEDS: levETIRAcetam 500 MG TAB PO SCH ×2 (09:04→20:58)
[2019-11-24] MEDS: FERROUS SULFATE 325 MG TAB PO SCH ×2 (09:04→18:43)
[2019-11-24] MEDS: SERTRALINE HCL 50 MG TABLET PO SCH (09:04)
[2019-11-24] MEDS: CHOLECALCIFEROL 1,000 UNITS 25 MCG TAB PO SCH (09:05)
[2019-11-24] MEDS: METOPROLOL SUCC 50MG EXT REL TAB PO SCH (09:05)
[2019-11-24] MEDS: AMLODIPINE BESYLATE 5 MG TAB PO SCH (09:05)
[2019-11-24] MEDS ORDERED: Nursing to Pharmacy Communication ONE (10:20)
--- NOTE | 2019-11-24 11:29 | Hospitalist Progress Note ---
Date of Service November 24, 2019 Assessment & Plan (1) Acute and chronic respiratory failure: -this is a patient with chronic respiratory failure who on baseline uses 2 liter/min of oxygen daily with likely contribution by COPD and current active smoker, whose acute respiratory failure process from left pleural effusion likely to acute on chronic diastolic congestive failure which has now increased oxygen requirements to 4 liters/min on admission on 11/21/19 -oxygen requirements have been decreased towards baseline as of 11/24/19 (2) Pleural effusion on left: (Bilateral pleural effusion more on the left side) STATUS POST THORACENTESIS OF THE LEFT PLEURAL EFFUSION -s/p thoracentesis of left pleural effusion on 11/23/19 with 1.3 liters removed by pulmonary physician (3) Acute on chronic diastolic (congestive) heart failure: -initial treatment of Lasix 80 mg IV BID discontinued as of 11/23/19 -home dose oral torsemide of 80 mg daily restarted on 11/24/19 (4) CKD (chronic kidney disease), stage IV: acute kidney injury on chronic kidney disease stage IV 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 Given history of recurrent pulmonary edema and to prevent fluid accumulation after thoracentesis, nephrology started 1st dialysis session on 11/23/19 after the thoracentesis was completed -patient will have dialysis on Wednesday11/24/19 and Wednesday11/25/19 inpatient and also to be established at with [facility] [place] on Wednesday11/27/19 (5) Severe chronic obstructive pulmonary disease: -does not appear to have COPD exacerbation at this time at this time -received 1 time dose of steroid in ED, no further respiratory steroids needed at this time -currently on prn Duonebs (6) CARLOS ALBERTO (obstructive sleep apnea): -does not use CPAP at home, uses supplementary oxygen via Nasal cannula at night at home -BIPAP only 2 hours on night of 11/22/19 because patient did not want it or could not tolerate it. do not think that patient is interested in BIPAP at nights with sleep (7) Atrial fibrillation: Paroxysmal atrial fibrillation -continue metoprolol -patient is not on systemic anticoagulation because he had subdural hematoma while on coumadin in March 2019 -continue Keppra for seizure prophylaxis -telemetry with rate controlled atrial fibrillation (8) Diabetes mellitus, type 2: Type 2 diabetes mellitus without [place] current of insulin -HbA1C 6.6 08/2019 -hold home dose glipizide and Victoza -insulin as per protocol (9) HTN (hypertension), benign: -continue amlodipine, metoprolol -diuretics (10) Dyslipidemia: -continue statin (11) Tobacco use disorder: -smoking cessation encouraged -nicotine patch was offered but patient declined (12) Depression: -continue home dose sertraline (13) AAA (abdominal aortic aneurysm): -AAA noted on CT abd/pelvis 5.2 x 5.0cm infrarenal AA on 07/26/19 per EPIC records pt does not have follow up Would recommend close follow up with vascular clinic as outpatient after hospital stay (14) DVT prophylaxis: SCD/TEDS for now in light of previous SDH 03/2019 Follow up: PCP Dr. Colon upon discharge Subjective Patient seen and examined this AM. he ie breathing on nasal cannula oxygen. no acute shortness of breath. he is awaiting dialysis session. no chest pain. no palpitations. no dizziness. no headache Review of Systems Review of Systems: All systems reviewed & are unremarkable except as noted in HPI & below Physical Exam Constitutional: comfortable Eyes: PERRL, conjunctivae normal, anicteric sclerae EOM intact bilaterally ENMT: external ear and nose normal, oropharynx normal Neck: normal visual inspection Respiratory: normal respiratory effort Cardiovascular: Rate/Rhythm: regular rate and + irregularly irregular Gastrointestinal (Abdomen): normal bowel sounds, soft, nontender, no hepatosplenomegaly Musculoskeletal: Head/Neck/Chest: normocephalic and head atraumatic right upper extremity AV fistula Neurologic: PERRL, EOMI, accommodation nl, no face palsy, no dysarthria CN's II-XI intact bilaterally Psychiatric: A+Ox3, euthymic affect Results & Data Vital Signs (Past 12 Hours) Vital Signs Temp Pulse Pulse Pulse Resp BP Pulse Ox 11/24/19 08:00 84 11/24/19 07:56 37.0 C 79 16 155/83 H 95 11/24/19 03:46 36.9 C 80 20 145/62 H 95 12/27/19 03:17 74 25 H 94 (1) Atrial fibrillation Atrial fibrillation type: paroxysmal Qualified Code(s): I48.0 - Paroxysmal atrial fibrillation
--- NOTE | 2019-11-24 18:48 | Nephrology Progress Note ---
Date of Service November 24, 2019 Assessment & Plan (1) ESRD (end stage renal disease): consider this pt ESRD d/t recurrent admissions w/ volume overload having failed OP diuretics. BP generally acceptable; urine sediment w/ known nephrotic profile c/w previous and no uti; serum chemistries acceptable; stable mild anemia w/ hgb in 10s and plts wnl. had thoracentesis 11/23 and first HD same day -for 3 h HD today w/ small flui dremova -plan full length HD Wednesday as well w/ small fluid removal -appreciate help from case mgt w/ admission to [facility] hopefully to start next wednesday--pt and son aware/ d/w them -will manage anemia on dialysis--transferrin satn 14% -daily bmp, hgb pls -[facility] has dialysis orders from me; still need to work w/ case mgt to complete paperwork for admission Subjective seen on rounds this am; looks the best I have ever seen him - alert, interactive, ate full breakfast, no c/o sob, pain, voiding concerns, edema; still gen weakness Review of Systems Review of Systems: All systems reviewed & are unremarkable except as noted in HPI & below Physical Exam Constitutional: well developed and + obese; no acute distress (sitting on L side on 02NC) Eyes: EOM intact bilaterally ENMT: Ears: no external ear abnormality Nose: no external nose abnormality Mouth: + dry oral mucous membranes Neck: no nuchal rigidity Respiratory: normal respiratory effort Auscultation: + diminished lung sounds (BL post lynch); no crackles and no wheezes Cardiovascular: Rate/Rhythm: regular rate and regular rhythm Heart Sounds: + murmur Extremities: + AV fistula (+ t/b) Gastrointestinal (Abdomen): Inspection/Auscultation: normal bowel sounds Percussion/Palpation: abdomen soft; abdomen nontender Musculoskeletal: Extremities: strength 5/5 throughout Skin: no rashes, warm and dry Neurologic: valle, limited but appropriate speech, +tremor BLUE Psychiatric: Orientation: oriented to person and oriented to place Speech: + abnormal rate/rhythm/volume of speech Affect: + flat affect Insight: + limited insight Results & Data Vital Signs (Past 12 Hours) Vital Signs Temp Pulse Pulse Pulse Resp BP BP 11/24/19 18:34 36.6 C 77 19 161/74 H 11/24/19 17:20 68 131/72 11/24/19 17:00 76 130/63 11/24/19 16:40 72 141/69 H 11/24/19 16:20 69 127/60 11/24/19 16:00 70 133/47 L 11/24/19 15:40 71 130/52 L 11/24/19 15:20 70 135/73 11/24/19 15:00 65 132/64 11/24/19 14:59 73 11/24/19 14:53 77 131/66 11/24/19 14:40 36.5 C 73 11/24/19 11:27 36.7 C 76 18 160/69 H 11/24/19 08:00 84 11/24/19 07:56 37.0 C 79 16 155/83 H Pulse Ox 11/24/19 18:34 96 11/24/19 17:20 11/24/19 17:00 11/24/19 16:40 11/24/19 16:20 11/24/19 16:00 11/24/19 15:40 11/24/19 15:20 11/24/19 15:00 11/24/19 14:59 11/24/19 14:53 11/24/19 14:40 11/24/19 11:27 92 11/24/19 08:00 11/24/19 07:56 95 Laboratory Results 11/23/19 11:28 11/23/19 13:36
[2019-11-24] MEDS: LOVASTATIN 20 MG TAB PO SCH (20:58)
[2019-11-25] MEDS ORDERED: IRON SUCROSE 100 MG in SYRINGE 0 ML IV ONE (07:00)
[2019-11-25] MEDS ORDERED: HEPARIN SOD (PORCINE) 1000 UNIT/ML 10 ML VIAL IV ONE (07:00)
[2019-11-25] MEDS ORDERED: SODIUM CHLORIDE 0.9% 1000ML 1,000 ML IV PRN (07:00)
[2019-11-25 07:45] LABS: Basophils # (auto) 0.01 K/uL (0-0.2); Basophils % (auto) 0.2 %; Eosinophils # (auto) 0.11 K/uL (0-0.5); Eosinophils % (auto) 1.9 %; Lymphocytes # (auto) 0.88 K/uL (1.2-3.4); Lymphocytes % (auto) 14.9 %; Mean Corpuscular Hemoglobin 28.9 pg (25-34); Mean Corpuscular Hgb Conc 32.4 g/dL (32-36); Mean Corpuscular Volume 89.5 fL (80-100); Mean Platelet Volume 9.8 fL (7.4-10.4); Monocytes # (auto) 0.77 K/uL (0.11-0.59); Neutrophils # (auto) 4.14 K/uL (1.4-6.5); Platelet Count 195 K/uL (130-400); RDW Coefficient of Variation 14.4 % (11.5-14.5); RDW Standard Deviation 47.5 fL (36.4-46.3); White Blood Count 5.91 K/uL (4.8-10.8)
[2019-11-25 08:38] LABS: Albumin Level 2.2 gm/dl (3.4-5.0); BUN Creatinine Ratio 15.7 (10-20); Calcium 8.5 mg/dl (8.5-10.1); Creatinine Clr Calc Pharmacy 29.7 ml/min; Est GFR (African American) 26.4; Est GFR (Non-African American) 22.8; Potassium 3.8 mmol/L (3.5-5.1)
[2019-11-25 08:41] LABS: Albumin Globulin Ratio 0.6 (0.9-2); Bilirubin,Total 0.4 mg/dl (0.2-1); Globulin 3.6 gm/dl (2.5-4.0); Total Protein 5.8 gm/dl (6.4-8.2)
[2019-11-25] MEDS: INSULIN ASPART 100 UNITS/ML 3 ML PEN SC SCH ×4 (09:06→21:03)
[2019-11-25] MEDS: INSULIN GLARGINE SOLOSTAR 100 UNITS/ML 3 ML PEN SC SCH ×2 (09:06→21:02)
[2019-11-25] MEDS: TORSEMIDE 20 MG TAB PO SCH (09:07)
[2019-11-25] MEDS: METOPROLOL SUCC 50MG EXT REL TAB PO SCH (09:07)
[2019-11-25] MEDS: levETIRAcetam 500 MG TAB PO SCH ×2 (09:07→20:10)
[2019-11-25] MEDS: FERROUS SULFATE 325 MG TAB PO SCH ×2 (09:07→20:09)
[2019-11-25] MEDS: AMLODIPINE BESYLATE 5 MG TAB PO SCH (09:07)
[2019-11-25] MEDS: SERTRALINE HCL 50 MG TABLET PO SCH (09:07)
[2019-11-25] MEDS: CHOLECALCIFEROL 1,000 UNITS 25 MCG TAB PO SCH (09:08)
--- NOTE | 2019-11-25 10:45 | Nephrology Progress Note ---
Date of Service November 25, 2019 Assessment & Plan (1) ESRD (end stage renal disease): consider this pt ESRD d/t recurrent admissions w/ volume overload having failed OP diuretics. BP generally acceptable; urine sediment w/ known nephrotic profile c/w previous and no uti; serum chemistries acceptable; stable mild anemia w/ hgb in 10s and plts wnl. had thoracentesis 11/23 and first HD same day -for 3 h HD today as well w/ small fluid removal -appreciate help from case mgt w/ admission to [facility] hopefully to start next wednesday--pt and son aware/ d/w them -will manage anemia on dialysis--transferrin satn 14% -daily bmp, hgb pls -[facility] has dialysis orders from me; still need to work w/ case mgt to complete paperwork for admission -From renal standpoint, patient can be discharged after dialysis today if paperwork for outpatient dialysis has been completed. Subjective Patient feels better denies any shortness of breath or pain. No vomiting or diarrhea. He is planned for dialysis today. Review of Systems Review of Systems: All systems reviewed & are unremarkable except as noted in HPI & below Physical Exam Physical Exam: General exam: Appears comfortable, no acute distress HEENT: Pupils are equal and reactive to light Neck: No JVD, neck is supple trachea is midline Respiratory system: Clear breath sounds bilaterally. Gastrointestinal: Abdomen is soft, non distended, non tender, bowel sounds are present CVS: Regular rate and rhythm. No murmurs, rubs or gallops Musculoskeletal: No joint or muscle tenderness Extremities: Non tender, no edema, peripheral pulses are present Neuro: Oriented, no tremors, no focal neurological deficits Skin: No rashes Access: AV fistula with high-pitched bruit Results & Data Vital Signs (Past 12 Hours) Vital Signs Temp Pulse Pulse Resp BP Pulse Ox Pulse Ox 11/25/19 09:03 93 11/25/19 08:00 67 11/25/19 07:36 36.4 C L 70 24 150/61 H 97 11/25/19 04:00 36.6 C 89 22 97 11/25/19 02:05 86 19 96 11/25/19 00:00 36.8 C 81 67 16 133/65 95 Laboratory Results Laboratory Results - last 24 hr 11/23/19 11/24/19 11/24/19 13:20 11:28 12:46 WBC RBC Hgb Hct MCV MCH MCHC RDW Std Deviation RDW Coeff of Kiah Plt Count MPV Immature Gran % (Auto) Neut % (Auto) Lymph % (Auto) Davison % (Auto) Eos % (Auto) Baso % (Auto) Immature Gran # (Auto) Neut # (Auto) Lymph # (Auto) Davison # (Auto) Eos # (Auto) Baso # (Auto) Sodium Potassium Chloride Carbon Dioxide Anion Gap BUN Creatinine Est Cr Clr Drug Dosing Est GFR ( Amer) Est GFR (Non-Af Amer) BUN/Creatinine Ratio Glucose POC Glucose 175 H Calcium Total Bilirubin AST ALT Alkaline Phosphatase Total Protein Albumin Globulin Albumin/Globulin Ratio Fluid Urea Nitrogen Pending Fluid Comment Pending Hep B Core IgM Ab Pending 11/24/19 11/24/19 11/25/19 18:36 19:48 07:29 WBC 5.91 RBC 3.80 L Hgb 11.0 L Hct 34.0 L MCV 89.5 MCH 28.9 MCHC 32.4 RDW Std Deviation 47.5 H RDW Coeff of Kiah 14.4 Plt Count 195 MPV 9.8 Immature Gran % (Auto) 0.0 Neut % (Auto) 70.0 Lymph % (Auto) 14.9 Davison % (Auto) 13.0 Eos % (Auto) 1.9 Baso % (Auto) 0.2 Immature Gran # (Auto) 0.00 Neut # (Auto) 4.14 Lymph # (Auto) 0.88 L Davison # (Auto) 0.77 H Eos # (Auto) 0.11 Baso # (Auto) 0.01 Sodium Potassium Chloride Carbon Dioxide Anion Gap BUN Creatinine Est Cr Clr Drug Dosing Est GFR ( Amer) Est GFR (Non-Af Amer) BUN/Creatinine Ratio Glucose POC Glucose 115 H 110 H Calcium Total Bilirubin AST ALT Alkaline Phosphatase Total Protein Albumin Globulin Albumin/Globulin Ratio Fluid Urea Nitrogen Fluid Comment Hep B Core IgM Ab 11/25/19 11/25/19 07:29 07:30 WBC RBC Hgb Hct MCV MCH MCHC RDW Std Deviation RDW Coeff of Kiah Plt Count MPV Immature Gran % (Auto) Neut % (Auto) Lymph % (Auto) Davison % (Auto) Eos % (Auto) Baso % (Auto) Immature Gran # (Auto) Neut # (Auto) Lymph # (Auto) Davison # (Auto) Eos # (Auto) Baso # (Auto) Sodium 140 Potassium 3.8 Chloride 104 Carbon Dioxide 33 H Anion Gap 4.0 BUN 40 H Creatinine 2.57 H D Est Cr Clr Drug Dosing 29.7 Est GFR ( Amer) 26.4 Est GFR (Non-Af Amer) 22.8 BUN/Creatinine Ratio 15.7 Glucose 118 H POC Glucose 118 H Calcium 8.5 Total Bilirubin 0.4 AST 12 L ALT 16 Alkaline Phosphatase 48 Total Protein 5.8 L Albumin 2.2 L Globulin 3.6 Albumin/Globulin Ratio 0.6 L Fluid Urea Nitrogen Fluid Comment Hep B Core IgM Ab
--- NOTE | 2019-11-25 14:51 | Hospitalist Progress Note ---
Date of Service November 25, 2019 Assessment & Plan (1) Acute and chronic respiratory failure: -this is a patient with chronic respiratory failure who on baseline uses 2 liter/min of oxygen daily with likely contribution by COPD and current active smoker, whose acute respiratory failure process from left pleural effusion likely to acute on chronic diastolic congestive failure which has now increased oxygen requirements to 4 liters/min on admission on 11/21/19 -oxygen requirements have been decreased towards baseline as of 11/24/19 (2) Pleural effusion on left: (Bilateral pleural effusion more on the left side) STATUS POST THORACENTESIS OF THE LEFT PLEURAL EFFUSION -s/p thoracentesis of left pleural effusion on 11/23/19 with 1.3 liters removed by pulmonary physician (3) Acute on chronic diastolic (congestive) heart failure: -initial treatment of Lasix 80 mg IV BID discontinued as of 11/23/19 -home dose oral torsemide of 80 mg daily restarted on 11/24/19 (4) CKD (chronic kidney disease), stage IV: acute kidney injury on chronic kidney disease stage IV 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 Given history of recurrent pulmonary edema and to prevent fluid accumulation after thoracentesis, nephrology started 1st dialysis session on 11/23/19 after the thoracentesis was completed -patient completed dialysis on Wednesday11/24/19 -11/25/19: Patient has ice over right arm as he had right arm hematoma during dialysis session and dialysis session could not be completed hospitalist expressed concern with nephrology service if any concerns for AV fistula immaturity versus AV fistula occlusion Nephrology Dr. Kolb suggest AV fistulogram evaluation with inpatient vascular surgery service versus outpatient AV fistulogram -original plans for patient to be to established at [facility] on Wednesday11/27/19 for dialysis given right arm hematoma is now deferred; continue to monitor patient's right arm hematoma inpatient with rest and ice -hospitalist spoke with Dr. Collazo from vascular surgery and he can do evaluation on Wednesday11/27/19 (5) Severe chronic obstructive pulmonary disease: -does not appear to have COPD exacerbation at this time at this time -received 1 time dose of steroid in ED, no further respiratory steroids needed at this time -currently on prn Duonebs (6) CARLOS ALBERTO (obstructive sleep apnea): -does not use CPAP at home, uses supplementary oxygen via Nasal cannula at night at home -BIPAP only 2 hours on night of 11/22/19 because patient did not want it or could not tolerate it. do not think that patient is interested in BIPAP at nights with sleep (7) Atrial fibrillation: Paroxysmal atrial fibrillation -continue metoprolol -patient is not on systemic anticoagulation because he had subdural hematoma while on coumadin in March 2019 -continue Keppra for seizure prophylaxis -telemetry monitoring with rate controlled atrial fibrillation (8) Diabetes mellitus, type 2: Type 2 diabetes mellitus without [employer] current of insulin -HbA1C 6.6 08/2019 -hold home dose glipizide and Victoza -insulin as per protocol (9) HTN (hypertension), benign: -continue amlodipine, metoprolol -diuretics (10) Dyslipidemia: -continue statin (11) Tobacco use disorder: -smoking cessation encouraged -nicotine patch was offered but patient declined (12) Depression: -continue home dose sertraline (13) AAA (abdominal aortic aneurysm): -AAA noted on CT abd/pelvis 5.2 x 5.0cm infrarenal AA on 07/26/19 per EPIC records pt does not have follow up Would recommend close follow up with vascular clinic as outpatient after hospital stay (14) DVT prophylaxis: SCD/TEDS for now in light of previous SDH 03/2019 Follow up: PCP Dr. Colon upon discharge Subjective Patient has ice over right arm as he had right arm hematoma during dialysis session and dialysis session could not be completed. Patient reported lot of arm pain before but is resting quietly. awake and alert and follows directions. denies pain elsewhere of the body. no complains of dizziness or lightheadedness or headache Review of Systems Review of Systems: All systems reviewed & are unremarkable except as noted in HPI & below Physical Exam Constitutional: comfortable Eyes: PERRL, conjunctivae normal, anicteric sclerae EOM intact bilaterally ENMT: external ear and nose normal, oropharynx normal Neck: normal visual inspection Respiratory: normal respiratory effort Cardiovascular: Rate/Rhythm: regular rate and + irregularly irregular Gastrointestinal (Abdomen): normal bowel sounds, soft, nontender, no hepatosplenomegaly Musculoskeletal: Head/Neck/Chest: normocephalic and head atraumatic right arm bruising Neurologic: PERRL, EOMI, accommodation nl, no face palsy, no dysarthria CN's II-XI intact bilaterally Psychiatric: A+Ox3, euthymic affect Results & Data Vital Signs (Past 12 Hours) Vital Signs Temp Pulse Pulse Resp BP Pulse Ox Pulse Ox 11/25/19 11:00 36.6 C 86 20 127/67 91 11/25/19 09:03 93 11/25/19 08:00 67 11/25/19 07:36 36.4 C L 70 24 150/61 H 97 11/25/19 04:00 36.6 C 89 22 97 (1) Atrial fibrillation Atrial fibrillation type: paroxysmal Qualified Code(s): I48.0 - Paroxysmal atrial fibrillation
[2019-11-25] MEDS: HEPARIN SOD (PORCINE) 1000 UNIT/ML 10 ML VIAL IV SCH ×2 (15:52→15:53)
[2019-11-25] MEDS: LOVASTATIN 20 MG TAB PO SCH (20:10)
[2019-11-26] MEDS: TORSEMIDE 20 MG TAB PO SCH (09:10)
[2019-11-26] MEDS: SERTRALINE HCL 50 MG TABLET PO SCH (09:10)
[2019-11-26] MEDS: METOPROLOL SUCC 50MG EXT REL TAB PO SCH (09:11)
[2019-11-26] MEDS: CHOLECALCIFEROL 1,000 UNITS 25 MCG TAB PO SCH (09:11)
[2019-11-26] MEDS: levETIRAcetam 500 MG TAB PO SCH ×2 (09:11→20:58)
[2019-11-26] MEDS: FERROUS SULFATE 325 MG TAB PO SCH ×2 (09:11→18:59)
[2019-11-26] MEDS: AMLODIPINE BESYLATE 5 MG TAB PO SCH (09:11)
[2019-11-26] MEDS: INSULIN ASPART 100 UNITS/ML 3 ML PEN SC SCH ×4 (09:14→20:53)
[2019-11-26] MEDS: INSULIN GLARGINE SOLOSTAR 100 UNITS/ML 3 ML PEN SC SCH ×2 (09:15→20:54)
--- NOTE | 2019-11-26 10:07 | Nephrology Progress Note ---
Date of Service November 26, 2019 Assessment & Plan (1) ESRD (end stage renal disease): consider this pt ESRD d/t recurrent admissions w/ volume overload having failed OP diuretics. BP generally acceptable; urine sediment w/ known nephrotic profile c/w previous and no uti; serum chemistries acceptable; stable mild anemia w/ hgb in 10s and plts wnl. had thoracentesis 11/23 and first HD same day -Missed HD yesterday due to infiltration of his AV fistula. Fistula has a high- pitched bruit. Patient needs a fistulogram. -Consult vascular surgery for fistulogram. Will likely have dialysis after fistulogram -appreciate help from case mgt w/ admission to [facility] hopefully to start next wednesday--pt and son aware/ d/w them -will manage anemia on dialysis--transferrin satn 14% -daily bmp, hgb pls -[facility] has dialysis orders; still need to work w/ case mgt to com plete paperwork for admission Subjective Patient did not have dialysis yesterday due to infiltration of his fistula shortly after starting treatment. No shortness of breath or leg swelling. No vomiting or diarrhea. Review of Systems Review of Systems: All systems reviewed & are unremarkable except as noted in HPI & below Physical Exam Physical Exam: General exam: Appears comfortable, no acute distress HEENT: Pupils are equal and reactive to light Neck: No JVD, neck is supple trachea is midline Respiratory system: Clear breath sounds bilaterally. Gastrointestinal: Abdomen is soft, non distended, non tender, bowel sounds are present CVS: Regular rate and rhythm. No murmurs, rubs or gallops Musculoskeletal: No joint or muscle tenderness Extremities: Non tender, no edema, peripheral pulses are present Neuro: Oriented, no tremors, no focal neurological deficits Skin: No rashes Access: Right upper arm AV fistula with high-pitched bruit Results & Data Vital Signs (Past 12 Hours) Vital Signs Temp Pulse Pulse Pulse Resp BP Pulse Ox 11/26/19 07:30 36.5 C 76 18 156/58 H 94 11/26/19 03:25 85 16 94 11/25/19 23:53 36.8 C 80 18 157/64 H 93 Laboratory Results Laboratory Results - last 24 hr 11/24/19 11/25/19 11/25/19 12:46 11:30 16:05 POC Glucose 236 H 121 H Hep B Core IgM Ab NON-REACTIVE 11/25/19 11/26/19 20:58 08:25 POC Glucose 106 H 133 H Hep B Core IgM Ab
--- NOTE | 2019-11-26 14:59 | Hospitalist Progress Note ---
Date of Service November 26, 2019 Assessment & Plan (1) Acute and chronic respiratory failure: -this is a patient with chronic respiratory failure who on baseline uses 2 liter/min of oxygen daily with likely contribution by COPD and current active smoker, whose acute respiratory failure process from left pleural effusion likely to acute on chronic diastolic congestive failure which has now increased oxygen requirements to 4 liters/min on admission on 11/21/19 -oxygen requirements have been decreased towards baseline as of 11/24/19 -as of 11/25/19, patient has been breathing on room air without acute desaturations (2) Pleural effusion on left: (Bilateral pleural effusion more on the left side) STATUS POST THORACENTESIS OF THE LEFT PLEURAL EFFUSION -s/p thoracentesis of left pleural effusion on 11/23/19 with 1.3 liters removed by pulmonary physician (3) Acute on chronic diastolic (congestive) heart failure: -initial treatment of Lasix 80 mg IV BID discontinued as of 11/23/19 -home dose oral torsemide of 80 mg daily restarted on 11/24/19 (4) CKD (chronic kidney disease), stage IV: acute kidney injury on chronic kidney disease stage IV 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 Given history of recurrent pulmonary edema and to prevent fluid accumulation after thoracentesis, nephrology started 1st dialysis session on 11/23/19 after the thoracentesis was completed -patient completed dialysis on Wednesday11/24/19 -11/25/19: Patient has ice over right arm as he had right arm hematoma during dialysis session and dialysis session could not be completed hospitalist expressed concern with nephrology service if any concerns for AV fistula immaturity versus AV fistula occlusion Nephrology Dr. Kolb suggest AV fistulogram evaluation with inpatient vascular surgery service versus outpatient AV fistulogram -original plans for patient to be to established at [facility] on Wednesday11/27/19 for dialysis given right arm hematoma is now deferred; continue to monitor patient's right arm hematoma inpatient with rest and ice -hospitalist spoke with Dr. Collazo from vascular surgery and he can do evaluation on Wednesday11/27/19; Dr. Collazo then notified nursing staff that he will not be able to assess until Wednesday11/28/19 (5) Severe chronic obstructive pulmonary disease: -does not appear to have COPD exacerbation at this time at this time -received 1 time dose of steroid in ED, no further respiratory steroids needed at this time -currently on prn Duonebs (6) CARLOS ALBERTO (obstructive sleep apnea): -does not use CPAP at home, uses supplementary oxygen via Nasal cannula at night at home -BIPAP only 2 hours on night of 11/22/19 because patient did not want it or could not tolerate it. do not think that patient is interested in BIPAP at nights with sleep, but can off if he accepts (7) Atrial fibrillation: Paroxysmal atrial fibrillation -continue metoprolol -patient is not on systemic anticoagulation because he had subdural hematoma while on coumadin in March 2019 -continue Keppra for seizure prophylaxis -telemetry monitoring with rate controlled atrial fibrillation and patient transferred to [facility] on 11/25/19 (8) Diabetes mellitus, type 2: Type 2 diabetes mellitus without long-term current of insulin -HbA1C 6.6 08/2019 -hold home dose glipizide and Victoza -insulin as per protocol (9) HTN (hypertension), benign: -continue amlodipine, metoprolol -diuretics (10) Dyslipidemia: -continue statin (11) Tobacco use disorder: -smoking cessation encouraged -nicotine patch was offered but patient declined (12) Depression: -continue home dose sertraline (13) AAA (abdominal aortic aneurysm): -AAA noted on CT abd/pelvis 5.2 x 5.0cm infrarenal AA on 07/26/19 per EPIC records pt does not have follow up Would recommend close follow up with vascular clinic as outpatient after hospital stay (14) DVT prophylaxis: SCD/TEDS for now in light of previous SDH 03/2019 Follow up: PCP Dr. Colon upon discharge Subjective Patient seen and examined breathing on room air. His family is updated. Patient denies shortness of breath. no chest pain. no abdominal pain. no dizziness. no headache Review of Systems Review of Systems: All systems reviewed & are unremarkable except as noted in HPI & below Physical Exam Constitutional: comfortable Eyes: PERRL, conjunctivae normal, anicteric sclerae EOM intact bilaterally ENMT: external ear and nose normal, oropharynx normal Neck: normal visual inspection Respiratory: normal respiratory effort, lungs clear to auscultation Cardiovascular: Rate/Rhythm: regular rate and + irregularly irregular Gastrointestinal (Abdomen): normal bowel sounds, soft, nontender, no hepatosplenomegaly Musculoskeletal: Head/Neck/Chest: normocephalic and head atraumatic Neurologic: PERRL, EOMI, accommodation nl, no face palsy, no dysarthria CN's II-XI intact bilaterally Psychiatric: A+Ox3, euthymic affect Results & Data Vital Signs (Past 12 Hours) Vital Signs Temp Pulse Pulse Resp BP Pulse Ox 11/26/19 07:30 36.5 C 76 18 156/58 H 94 11/26/19 03:25 85 16 94 (1) Atrial fibrillation Atrial fibrillation type: paroxysmal Qualified Code(s): I48.0 - Paroxysmal atrial fibrillation
[2019-11-26] MEDS: LOVASTATIN 20 MG TAB PO SCH (20:59)
[2019-11-27] MEDS: AMLODIPINE BESYLATE 5 MG TAB PO SCH (08:56)
[2019-11-27] MEDS: SERTRALINE HCL 50 MG TABLET PO SCH (08:57)
[2019-11-27] MEDS: levETIRAcetam 500 MG TAB PO SCH ×2 (08:57→20:55)
[2019-11-27] MEDS: FERROUS SULFATE 325 MG TAB PO SCH ×2 (08:57→18:10)
[2019-11-27] MEDS: METOPROLOL SUCC 50MG EXT REL TAB PO SCH (08:57)
[2019-11-27] MEDS: CHOLECALCIFEROL 1,000 UNITS 25 MCG TAB PO SCH (08:57)
[2019-11-27] MEDS: TORSEMIDE 20 MG TAB PO SCH (08:57)
[2019-11-27] MEDS: INSULIN ASPART 100 UNITS/ML 3 ML PEN SC SCH ×4 (08:58→20:58)
[2019-11-27] MEDS: INSULIN GLARGINE SOLOSTAR 100 UNITS/ML 3 ML PEN SC SCH ×2 (08:59→20:59)
[2019-11-27 09:24] LABS: Hematocrit (blood only) 34.8 % (42-52); Hemoglobin 11.4 g/dL (14.0-18.0); Mean Corpuscular Hemoglobin 29.2 pg (25-34); Mean Corpuscular Hgb Conc 32.8 g/dL (32-36); Mean Corpuscular Volume 89.2 fL (80-100); Mean Platelet Volume 9.7 fL (7.4-10.4); Platelet Count 225 K/uL (130-400); RDW Coefficient of Variation 14.1 % (11.5-14.5); RDW Standard Deviation 46.1 fL (36.4-46.3); White Blood Count 6.02 K/uL (4.8-10.8)
[2019-11-27 09:56] LABS: BUN Creatinine Ratio 15.5 (10-20); Calcium 8.9 mg/dl (8.5-10.1); Creatinine Clr Calc Pharmacy 24.1 ml/min; Est GFR (African American) 20.6; Est GFR (Non-African American) 17.8; Potassium 3.7 mmol/L (3.5-5.1)
[2019-11-27 09:57] LABS: Phosphorus 3.3 mg/dl (2.5-4.9)
--- NOTE | 2019-11-27 18:09 | Hospitalist Progress Note ---
Date of Service November 27, 2019 Assessment & Plan (1) ESRD (end stage renal disease): Hemodialysis initiated this admission, and patient is tolerating. However, complication with the fistula has occurred since 11/25 requiring vascular surgery evaluation for consideration of AV fistulogram. This will occur tomorrow. Continue dialysis per nephrology recommendations. (2) Pleural effusion on left: a/p thoracentesis on 11/23 with 1.3 L removed. Also improved 2/2 HD initiation. (3) Acute on chronic diastolic (congestive) heart failure: -initial treatment of Lasix 80 mg IV BID discontinued as of 11/23/19 -home dose oral torsemide of 80 mg daily restarted on 11/24/19 (4) Atrial fibrillation: PAF-cont rate control with Toprol. No anticoagulation in the setting of subdural hematoma while on coumadin March 2019. (5) COPD (chronic obstructive pulmonary disease): Stable, no wheezing on exam. No evidence of exacerbation. (6) HTN (hypertension), benign: around goal, cont norvasc and Toprol XL and torsemide. (7) Diabetes mellitus, type 2: controlled and at inpatient goal. Cont insulin. (8) Tobacco use disorder: smoking cessation encouraged; nicotine replacement declined (9) Depression: -continue home dose sertraline (10) CARLOS ALBERTO (obstructive sleep apnea): reports that he uses CPAP at home and used it overnight, also. (11) DVT prophylaxis: SCD/TEDS for now in light of previous SDH 03/2019 Full Code Dispo-pending Vascular recommendations. Pt needs dialysis appointment in place with [facility] prior to discharge. Isabel Stewart DO [facility] Hospitalist Subjective 79-year-old man presented with acute on chronic respiratory failure secondary to volume overload from end-stage renal disease. He was started on dialysis this admission and recently had a hematoma formation on 11/25 with a dialysis session could not be completed. Nephrology suggested an AV fistulogram evaluation with inpatient vascular service and vascular surgery is planning to see him tomorrow, Wednesday. Per nursing he was able to undergo dialysis today but not complete the full course, again because of an issue with the fistula. He was seen by the undersigned prior to the dialysis session and was doing well. He is tolerating p.o., denies any pain he voiced being upset about his hospitalization. He cannot recall where he was holding fluid on admission but he says he dropped 20 pound since being here. He feels better because of this. He does admit the dialysis wipes him out. Denies any pain. Review of Systems Review of Systems: All systems reviewed & are unremarkable except as noted in HPI & below Physical Exam Physical Exam: CONSTITUTIONAL: WNWD, vitals as above, generally well- appearing EYES: normal conjunctivae, no scleral icterus ENT: MMM RESPIRATORY: clear to auscultation bilaterally, no crackles, rales or wheezes, normal respiratory effort CARDIOVASCULAR: regular rate and rhythm, S1 and 2 heard without murmurs, gallops or rubs, no JVD, no peripheral edema GASTROINTESTINAL: soft, nontender, nondistended MUSCULOSKELETAL: strength 5/5 throughout, head is normocephalic and atraumatic SKIN: warm and dry, AV fustula site with ecchymosis proximal to this site. Palpable thrill. NEUROLOGIC: CN 2-12 grossly intact, normal cognition, normal speech, no gross focal deficit. PSYCHIATRIC: alert cooperative and oriented to person, place and time. Results & Data Vital Signs (Past 12 Hours) Vital Signs Temp Pulse Pulse Pulse Resp BP BP 11/27/19 16:58 36.5 C 84 18 154/68 H 11/27/19 16:42 36.6 C 71 145/71 H 11/27/19 16:20 70 142/66 H 11/27/19 16:00 71 133/68 11/27/19 15:40 68 138/70 11/27/19 15:20 70 140/70 11/27/19 15:00 74 139/67 11/27/19 14:40 71 150/67 H 11/27/19 14:20 71 137/63 11/27/19 07:07 36.7 C 76 18 164/73 H Pulse Ox 11/27/19 16:58 93 11/27/19 16:42 11/27/19 16:20 11/27/19 16:00 11/27/19 15:40 11/27/19 15:20 11/27/19 15:00 11/27/19 14:40 11/27/19 14:20 11/27/19 07:07 91 Laboratory Results Short CBC 11/27/19 Range/Units 09:13 WBC 6.02 (4.8-10.8) K/uL Hgb 11.4 L (14.0-18.0) g/dL Hct 34.8 L (42-52) % Plt Count 225 (130-400) K/uL [facility] 11/27/19 09:12 Sodium 142 Potassium 3.7 Chloride 105 Carbon Dioxide 31 BUN 49 H Creatinine 3.15 H Glucose 180 H Calcium 8.9 Medications Administered Current Inpatient Medications Acetaminophen (Tylenol) 325 mg PO Q6H PRN PRN Reason: Pain or Fever Stop: 12/21/19 14:24 Albuterol (Duoneb) 3 ml NEB Q6H PRN PRN Reason: Shortness Of Breath Or Wheezing Stop: 12/22/19 11:27 Amlodipine Besylate (Norvasc) 5 mg PO DAILY [facility] Stop: 12/22/19 08:59 Last Admin: 11/27/19 08:56 Dose: 5 mg Documented by: Dextrose (Dextrose 50%) 25 - 50 ml IV UD PRN; Protocol PRN Reason: Hypoglycemia Protocol Stop: 12/21/19 14:24 Ferrous Sulfate (Feosol) 325 mg PO BIDM [facility] Stop: 12/21/19 16:59 Last Admin: 11/27/19 08:57 Dose: 325 mg Documented by: Glucagon (Glucagen) 1 mg SQ UD PRN; Protocol PRN Reason: Hypoglycemia Protocol Stop: 12/21/19 14:24 Glucose (Dex4 Glucose) 4 - 8 tabs PO UD PRN; Protocol PRN Reason: Hypoglycemia Protocol Stop: 12/21/19 14:24 Glucose (Glucose 40%) 15 - 30 gm PO UD PRN; Protocol PRN Reason: Hypoglycemia Protocol Stop: 12/21/19 14:24 Insulin Aspart (Novolog Flexpen) 0 units SC ACHS [facility] Stop: 12/21/19 16:29 Last Admin: 11/27/19 12:39 Dose: 175 units Documented by: Insulin Glargine (Lantus Solostar Pen) 0 units SC BID [facility]; Protocol Stop: 12/21/19 20:59 Last Admin: 11/27/19 08:59 Dose: 4 units Documented by: Levetiracetam (Keppra) 500 mg PO BID [facility] Stop: 12/21/19 20:59 Last Admin: 11/27/19 08:57 Dose: 500 mg Documented by: Lovastatin (Mevacor) 80 mg PO HS [facility] Stop: 12/21/19 20:59 Last Admin: 11/26/19 20:59 Dose: 80 mg Documented by: Metoprolol Succinate (Toprol Xl) 50 mg PO DAILY [facility] Stop: 12/22/19 08:59 Last Admin: 11/27/19 08:57 Dose: 50 mg Documented by: Miscellaneous (Carbohydrates For Hypoglycemia) 15 - 30 gm PO UD PRN PRN Reason: Hypoglycemia Protocol Stop: 12/21/19 14:24 Ondansetron HCl (Zofran) 4 mg IV Q6H PRN PRN Reason: Nausea Stop: 12/21/19 14:24 Sertraline HCl (Zoloft) 25 mg PO DAILY [facility] Stop: 12/22/19 08:59 Last Admin: 11/27/19 08:57 Dose: 25 mg Documented by: Torsemide (Demadex) 80 mg PO QAM [facility] Stop: 12/24/19 08:59 Last Admin: 11/27/19 08:57 Dose: 80 mg Documented by: Vitamin D (Vitamin D3) 2,000 units PO DAILY [facility] Stop: 12/22/19 08:59 Last Admin: 11/27/19 08:57 Dose: 2,000 units Documented by: (1) Atrial fibrillation Atrial fibrillation type: paroxysmal Qualified Code(s): I48.0 - Paroxysmal atrial fibrillation
--- NOTE | 2019-11-27 18:45 | Nephrology Progress Note ---
Date of Service November 27, 2019 Assessment & Plan (1) ESRD (end stage renal disease): consider this pt ESRD d/t recurrent admissions w/ volume overload having failed OP diuretics. BP generally acceptable; urine sediment w/ known nephrotic profile c/w previous and no uti; serum chemistries acceptable; stable mild anemia w/ hgb in 10s and plts wnl. Had HD today for 3hrs and UF 900ml. Clots pulled out of AVF. -Missed HD yesterday due to infiltration of his AV fistula. Fistula has a high- pitched bruit. Patient needs a fistulogram. -Consult vascular surgery for fistulogram. -appreciate help from case mgt w/ admission to [facility] -will manage anemia on dialysis--transferrin satn 14% -daily bmp, hgb pls -[facility] has dialysis orders; still need to work w/ case mgt to complete paperwork for admission Subjective Feels fine. No SOB. Tolerated HD well. had some clots in the AVF Review of Systems Review of Systems: All systems reviewed & are unremarkable except as noted in HPI & below Physical Exam Physical Exam: General exam: Appears comfortable, no acute distress HEENT: Pupils are equal and reactive to light Neck: No JVD, neck is supple trachea is midline Respiratory system: Clear breath sounds bilaterally. Gastrointestinal: Abdomen is soft, non distended, non tender, bowel sounds are present CVS: Regular rate and rhythm. No murmurs, rubs or gallops Musculoskeletal: No joint or muscle tenderness Extremities: Non tender, no edema, peripheral pulses are present Neuro: Oriented, no tremors, no focal neurological deficits Skin: No rashes Access: AVF Results & Data Vital Signs (Past 12 Hours) Vital Signs Temp Pulse Pulse Pulse Resp BP BP 11/27/19 16:58 36.5 C 84 18 154/68 H 11/27/19 16:42 36.6 C 71 145/71 H 11/27/19 16:20 70 142/66 H 11/27/19 16:00 71 133/68 11/27/19 15:40 68 138/70 11/27/19 15:20 70 140/70 11/27/19 15:00 74 139/67 11/27/19 14:40 71 150/67 H 11/27/19 14:20 71 137/63 11/27/19 07:07 36.7 C 76 18 164/73 H Pulse Ox 11/27/19 16:58 93 11/27/19 16:42 11/27/19 16:20 11/27/19 16:00 11/27/19 15:40 11/27/19 15:20 11/27/19 15:00 11/27/19 14:40 11/27/19 14:20 11/27/19 07:07 91 Laboratory Results Laboratory Results - last 24 hr 11/23/19 11/26/19 11/27/19 13:00 20:40 07:59 WBC RBC Hgb Hct MCV MCH MCHC RDW Std Deviation RDW Coeff of [place] Plt Count MPV Sodium Potassium Chloride Carbon Dioxide Anion Gap BUN Creatinine Est Cr Clr Drug Dosing Est GFR ( Amer) Est GFR (Non-Af Amer) BUN/Creatinine Ratio Glucose POC Glucose 155 H 131 H Calcium Phosphorus Magnesium Pleural Cholesterol see note 11/27/19 11/27/19 11/27/19 09:12 09:13 12:01 WBC 6.02 RBC 3.90 L Hgb 11.4 L Hct 34.8 L MCV 89.2 MCH 29.2 MCHC 32.8 RDW Std Deviation 46.1 RDW Coeff of [place] 14.1 Plt Count 225 MPV 9.7 Sodium 142 Potassium 3.7 Chloride 105 Carbon Dioxide 31 Anion Gap 6.0 BUN 49 H Creatinine 3.15 H Est Cr Clr Drug Dosing 24.1 Est GFR ( Amer) 20.6 Est GFR (Non-Af Amer) 17.8 BUN/Creatinine Ratio 15.5 Glucose 180 H POC Glucose 175 H Calcium 8.9 Phosphorus 3.3 Magnesium 2.0 Pleural Cholesterol 11/27/19 16:56 WBC RBC Hgb Hct MCV MCH MCHC RDW Std Deviation RDW Coeff of [place] Plt Count MPV Sodium Potassium Chloride Carbon Dioxide Anion Gap BUN Creatinine Est Cr Clr Drug Dosing Est GFR ( Amer) Est GFR (Non-Af Amer) BUN/Creatinine Ratio Glucose POC Glucose 118 H Calcium Phosphorus Magnesium Pleural Cholesterol
[2019-11-27] MEDS: LOVASTATIN 20 MG TAB PO SCH (20:56)
[2019-11-28] MEDS ORDERED: Nursing to Pharmacy Communication ONE ×3 (05:36→13:45)
[2019-11-28] MEDS: INSULIN ASPART 100 UNITS/ML 3 ML PEN SC SCH ×2 (05:48→13:47)
[2019-11-28 07:20] LABS: Hematocrit (blood only) 32.7 % (42-52); Hemoglobin 10.7 g/dL (14.0-18.0); Mean Corpuscular Hemoglobin 29.2 pg (25-34); Mean Corpuscular Hgb Conc 32.7 g/dL (32-36); Mean Corpuscular Volume 89.3 fL (80-100); Mean Platelet Volume 9.4 fL (7.4-10.4); Platelet Count 221 K/uL (130-400); RDW Coefficient of Variation 14.2 % (11.5-14.5); RDW Standard Deviation 46.5 fL (36.4-46.3); Red Blood Count 3.66 M/uL (4.7-6.1); White Blood Count 6.78 K/uL (4.8-10.8)
[2019-11-28 07:56] LABS: BUN Creatinine Ratio 12.2 (10-20); Calcium 8.4 mg/dl (8.5-10.1); Creatinine Clr Calc Pharmacy 28.1 ml/min; Est GFR (Non-African American) 21.5; Potassium 3.4 mmol/L (3.5-5.1)
[2019-11-28] MEDS: AMLODIPINE BESYLATE 5 MG TAB PO SCH (09:04)
[2019-11-28] MEDS: METOPROLOL SUCC 50MG EXT REL TAB PO SCH (09:04)
[2019-11-28] MEDS: levETIRAcetam 500 MG TAB PO SCH (09:05)
[2019-11-28] MEDS: SERTRALINE HCL 50 MG TABLET PO SCH (09:05)
[2019-11-28] MEDS: TORSEMIDE 20 MG TAB PO SCH (09:05)
[2019-11-28] MEDS: FERROUS SULFATE 325 MG TAB PO SCH (09:06)
[2019-11-28] MEDS: CHOLECALCIFEROL 1,000 UNITS 25 MCG TAB PO SCH (09:07)
[2019-11-28] MEDS: INSULIN GLARGINE SOLOSTAR 100 UNITS/ML 3 ML PEN SC SCH (10:41)
--- NOTE | 2019-11-28 13:51 | Discharge Summary ---
Date of Service November 28, 2019 Admission HPI Per Admitting Provider Mr. 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 Son, [id number] and daughter are at bedside. Over the past 1.5 weeks he has noted increasing shortness of breath with exertion and at rest, decreased oxygen saturation, 5 to 7 pound weight gain, productive cough with white and blood specks sputum, decreased appetite, increasing somnolence and fatigue. He denies any recent illness, fever, chills, sweats, lightheadedness, dizziness, syncope, fall, chest pain, palpitations, hemoptysis, nausea, vomiting, abdominal pain, diarrhea, melena, dyschezia. He does still produce urine and denies any dysuria, hematuria or change in urinary frequency. He s tates he does monitor his fluid intake to 32 ounces daily. Baseline weight around 250. Recently seen by PCP and finished a course of azithromycin secondary to not feeling well. Symptoms unchanged. He does wear oxygen at night and secondary to decreasing oxygen saturations he has been wearing it throughout the day as well. Denies any madelyn orthopnea or PND. Denies any increased lower extremity edema. Patient last confined 08/2019 secondary to diastolic CHF exacerbation and acute respiratory failure treated with IV diuresis, steroids, nebulizers and antibiotics. In ED patient was hypoxic requiring 4 L of O2 via oxygen mask. He was otherwise hemodynamically stable and afebrile. Lab abnormalities notable for leukocytosis 12.8 4K, H&H 12.12 and 37.7, BUN 40, creatinine 3.01, troponin WNL, flu negative. Chest x-ray concerning for large left pleural effusion, small right pleural effusion and congestive changes concerning for pulmonary edema. He received IV Lasix 40 mg, nebulizer treatment, 1 g magnesium supplementation and IV methylprednisolone 125 mg while in ED. Admission Exam Per Admitting Provider Constitutional: Morbidly obese, M, elderly, smells of tobacco, vitals as above, NAD, sitting up in bed but somnolent, answers questions appropriately Head: Normocephalic, Atraumatic Eyes: PERRL, conjunctivae normal, anicteric sclerae ENMT: external ear and nose normal, oropharynx normal Neck: trachea midline, no thyromegaly normal visual inspection Respiratory: normal respiratory effort, on O2 via Oxymask, absent breath sounds L mid/lower lobe, no wheeze, rales, rhonchi. Normal insp/exp effort, no accessory muscle use Cardiovascular: RRR with ectopy noted, soft 1/6 isabella noted rusb, trace pretibial edema, RUE AV Fistula Vessels: no JVD or carotid bruit Chest: normal inspection of chest Abdomen: protuberant abd, normal bowel sounds, soft, nontender, no hepatosplenomegaly Musculoskeletal: no cyanosis or clubbing, extremities motor strength 5/5 Skin: no rashes, warm and dry normal turgor Neurologic: PERRL, EOMI, accommodation nl, no face palsy, no dysarthria CN's II-XI intact bilaterally and moves all extremities Psychiatric: A+Ox3, euthymic affect Lymphatic: no cervical or axillary lymphadenopathy : deferred Principal Diagnosis acute respiratory failure-improved acute on chronic diastolic CHF ESRD with hemodialysis initiation Pleural effusion on the left status post thoracentesis Atrial fibrillation Tobacco use disorder Discharge Exam CONSTITUTIONAL: WNWD, vitals as above, generally well-appearing EYES: normal conjunctivae, no scleral icterus ENT: MMM RESPIRATORY: clear to auscultation bilaterally, no crackles, rales or wheezes, normal respiratory effort CARDIOVASCULAR: regular rate and rhythm, S1 and 2 heard without murmurs, gallops or rubs, no JVD, no peripheral edema GASTROINTESTINAL: soft, nontender, nondistended MUSCULOSKELETAL: strength 5/5 throughout, head is normocephalic and atraumatic SKIN: warm and dry, AV fistula site with ecchymosis proximal to this site. Palpable thrill. NEUROLOGIC: CN 2-12 grossly intact, normal cognition, normal speech, no gross focal deficit. PSYCHIATRIC: alert cooperative and oriented to person, place and time. Discharge Data Allergies Allergy/AdvReac Type Severity Reaction Status Date / Time codeine AdvReac Intermediate NAUSEA Verified 11/21/19 11:46 Consultations 11/21/19 12:50 ED Decision to Admit Stat 11/21/19 14:25 Consult Case Management - Discharge Planning Routine 11/22/19 11:58 Consult Pulmonology Routine 11/23/19 08:00 Consult Nephrology Routine 11/27/19 08:00 Consult Vascular Surgery Routine Ordered Studies 11/23/19 08:47 US point of care ultrasound Routine Hospital Course (1) ESRD (end stage renal disease): (2) Pleural effusion on left: (3) Acute on chronic diastolic (congestive) heart failure: (4) Tobacco use disorder: 79-year-old man with end-stage renal disease presented with acute on chronic respiratory failure secondary to volume overload. He was initiated on dialysis this admission in addition to undergoing IV diuresis. He subsequently had a hematoma that formed on 11/25 where his dialysis session could not be completed. Nephrology suggested an AV fistulogram evaluation with the inpatient vascular surgery service. With the holiday this evaluation was delayed a couple of days, however, the patient did not want to wait for this to be completed in the hospital. He continued to undergo dialysis and although he was unable to complete full sessions. As his blood pressure was generally acceptable, urine sediment was consistent with known prior nephrotic profile and no urinary tract infection, serum chemistries were acceptable and stable mild anemia with hemo globin in the tens and platelets within normal limits, he was considered stable for discharge. He underwent hemodialysis for 3 hours on 11/27 with an ultrafiltrate removed of 900 mils. Clots were notably pulled out of his AV fistula. Nephrology felt he was stable enough to be discharged home and continue with dialysis as an outpatient with AV fistulogram performed as outpatient, also. Prior to discharge the patient's outpatient dialysis appointment was set up. He was doing well on his home diuretics, having lost approximately 8 kg in weight. At time of discharge he was hemodynamically st able and afebrile and tolerating p.o. He was mentating and ambulating at baseline and was sent home in stable condition with close primary care follow-up recommended in addition to outpatient vascular surgery evaluation for AV fistulogram and close follow-up with nephrology. Of note nicotine replacement was offered to him as a way to quit smoking, however he declined. He was educated on the negative effects of smoking for his health. He verbalized understanding. Also, with respect to his diabetic medications, these were reviewed with the pharmacist. Victoza was continued as there was no renal adjustment. However, to avoid hypoglycemia with the recent changes glipizide was cut by 50%. This can be further titrated up as needed by primary care doctor. Total Time Total Time Spent Total Time Spent (In Minutes): 60 Total Time Includes: Examination of the Patient, Discharge Planning, Medication Reconciliation and Communication With Other Providers Discharge Plan Discharge Items Patient Disposition: Home - Home Health Services Reason For Visit: A/C DIASTOLIC CHF, A/C RESPIRATORY FAILURE Discharge Diagnosis: acute respiratory failure-improved acute on chronic diastolic CHF ESRD with hemodialysis initiation Pleural effusion on the left status post thoracentesis Atrial fibrillation Tobacco use disorder Condition on Discharge: Good Activity: Resume your previous activity Non-emergency contact: Primary Care Provider and Leader Tier Call non-emergency contact if: you have any medication questions, your symptoms worsen, your pain is not controlled, your pain is worsening, your pain is unusual for you and your pain is concerning for you Follow-up/Referrals: Aden Colon MD [Primary Care Provider] - Diet: Dialysis Renal Addtl Attending Provider Instructions: [facility] on [address], [place] [address] primary care clinic 11/30/2019 1:20 PM Provider Marcelino Peña MD Department [facility] nephrology clinic 12/19/2019 1:40 PM Provider Gilmar Kolb MD Department Nephrology, [facility] primary care clinic 01/02/2020 9:00 AM Provider Aden Colon MD Department [facility] YOUR FIRST DIALYSIS APPOINTMENT WAS RESCHEDULED TO WednesdayNovember at 1:00pm. PLEASE ARRIVE 15-20 MINS EARLY. 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 It is strongly recommended that you avoid tobacco products as they are bad for your health! It was a pleasure taking care of you! Please call if you have any questions or problems. You can reach a [facility] hospitalist on duty at [facility] 24 hours a day by calling [phone]. Take care of yourself. Isabel Stewart, [facility] Hospitalist Pending Studies at Discharge: No Stand-Alone Forms: My [facility], Smoking Cessation Medications and DC Order Prescriptions: New glipizide 5 mg tablet 5 mg PO BID Qty: 60 RF: 1 Continued ferrous sulfate [Feosol] 325 mg (65 mg iron) tablet 325 mg PO BID RF: 0 levetiracetam 500 mg Tablet 500 mg PO BID RF: 0 acetaminophen 650 mg Tablet Extended Release 650 mg PO Q6H PRN (Reason: pain/fever) RF: 0 amlodipine 10 mg tablet 5 mg PO DAILY RF: 0 torsemide 20 mg tablet 80 mg PO DAILY 30 Days Qty: 120 RF: 3 lovastatin 40 mg Tablet 80 mg PO HS RF: 0 Victoza 2-Fernando 0.6 mg/0.1 mL (18 mg/3 mL) Pen Injector 1.2 mg SUBCUT DAILY RF: 0 cholecalciferol (vitamin D3) 2,000 unit Tablet 2,000 units PO DAILY RF: 0 metoprolol succinate 50 mg tablet extended release 24 hr 50 mg PO DAILY RF: 0 sertraline 25 mg tablet 25 mg PO DAILY RF: 0 Discontinued glipizide 10 mg Tablet 10 mg PO BID RF: 0 Discharge Orders: Discharge Order (Routine); Ordered 11/28/19 Ordered By: Isabel Campo/Other Patient Handouts: DVT Prevent Admission Data Admit Date/Time: 11/21/19 13:25 Attending Provider: Isabel Stewart Admit Provider: Elliot Marlow Primary Care Provider: Aden Colon Other Providers: Elliot Marlow ; Mary Borrero Stacy L. ; Shawn Collazo Other Interventions: Discharge Summary Assessment (RN) Last Done: 11/28/19 14:13 DC Date/Time DO NOT enter until pt leaves facility: 11/28/19 15:10
[2019-11-28] MEDS ORDERED: INSULIN ASPART 100 UNITS/ML 3 ML PEN SC SCH (16:30)
== END 2019-11-28 15:10 | disposition home health service (06) | DRG 291 ==
LOC: ED 10:24 → 2S 13:25 → SUATTDRO 13:25 → 2S 14:04 → 3W 11-25 14:41

== ENCOUNTER 2019-12-06 23:28 | Observation (INO) ==
[2019-12-06] MEDS ORDERED: ALBUT/IPRATROP 3MG/0.5MG NEB 3 ML VIAL INH STA (23:38)
[2019-12-06 23:52] LABS: Basophils # (auto) 0.01 K/uL (0-0.2); Basophils % (auto) 0.1 %; Eosinophils # (auto) 0.05 K/uL (0-0.5); Eosinophils % (auto) 0.4 %; Hematocrit (blood only) 36.3 % (42-52); Hemoglobin 11.9 g/dL (14.0-18.0); Immature Granulocytes # (auto) 0.03 K/uL (0.00-0.02); Immature Granulocytes % (auto) 0.2 %; Lymphocytes # (auto) 0.69 K/uL (1.2-3.4); Mean Corpuscular Hemoglobin 29.4 pg (25-34); Mean Corpuscular Hgb Conc 32.8 g/dL (32-36); Mean Corpuscular Volume 89.6 fL (80-100); Mean Platelet Volume 9.8 fL (7.4-10.4); Monocytes # (auto) 0.98 K/uL (0.11-0.59); Monocytes % (auto) 7.1 %; Neutrophils # (auto) 12.13 K/uL (1.4-6.5); Neutrophils % (auto) 87.2 %; Platelet Count 306 K/uL (130-400); RDW Coefficient of Variation 14.7 % (11.5-14.5); Red Blood Count 4.05 M/uL (4.7-6.1); White Blood Count 13.89 K/uL (4.8-10.8)
[2019-12-07 00:11] LABS: Alanine Aminotransferase 16 U/L (12-78); Albumin Level 2.8 gm/dl (3.4-5.0); Aspartate Aminotransferase 10 U/L (15-37); BUN Creatinine Ratio 9.4 (10-20); Blood Urea Nitrogen 22 mg/dl (7-18); Calcium 8.8 mg/dl (8.5-10.1); Carbon Dioxide 34 mmol/L (21-32); Chloride 103 mmol/L (98-107); Creatinine Clr Calc Pharmacy 34.1 ml/min; Est GFR (African American) 29.9; Est GFR (Non-African American) 25.8; Glucose 192 mg/dl (70-99); Magnesium 1.7 mg/dl (1.8-2.4); Potassium 4.4 mmol/L (3.5-5.1); Sodium 139 mmol/L (136-145)
[2019-12-07 00:16] LABS: Albumin Globulin Ratio 0.7 (0.9-2); Alkaline Phosphatase 68 U/L (45-117); Bilirubin,Total 0.3 mg/dl (0.2-1); Total Protein 6.8 gm/dl (6.4-8.2); Troponin I < 0.015 ng/ml (0-0.045)
[2019-12-07] MEDS ORDERED: methylPREDNISolone 60 MG in SYRINGE 1 ML IV STA (00:24)
--- NOTE | 2019-12-07 00:24 | Emergency Department Note ---
Entered by Janett Darling acting as a scribe for History of Present Illness General Chief complaint: Shortness of Breath/Dyspnea Stated complaint: trouble breathing Time Seen by Provider: 12/06/19 23:30 Source: patient and EMS History of Present Illness Onset (ago): hour(s) 5 Location: chest Pain Consistency: + other (worsening ) Current Pain Intensity: 4 Quality: + other (shortness of breath) Relieved By: + medication (Duoneb treatment ) Associated symptoms: + chest pain (sharp with breathing ); no cough and no fever/chills Treatments prior to arrival: other (duoneb) The patient is a 79 year old male who presents to the Emergency Room with complaints of worsening shortness of breath that began at approximately 1830, 5 hours prior to arrival. The patient states that he feels like he can "only get half" of his breath and states that every time he breathes he gets a sharp pain in his middle lower chest. He rates his current pain at a 4/10. The patient denies fever. EMS states that the patient was given a Duoneb treatment just prior to arrival, and the patient states that this relieved his symptoms. The patient denies any falls today. He states that all day today he has felt at his baseline until he went to bed. The patient reports that he had dialysis today and states that this was normal. The patient states that he was discharged from the hospital on 11/28, 9 days ago, and states that he has felt at his baseline since this time. The patient reports that he wears 2L of oxygen at night. Home Medications Home Medications Medication Instructions Recorded Confirmed Type Victoza 2-Fernando 1.2 mg SUBCUT DAILY 02/09/19 12/07/19 History cholecalciferol (vitamin D3) 2,000 units PO DAILY 02/09/19 12/07/19 History lovastatin 80 mg PO HS 02/09/19 12/07/19 History levetiracetam 500 mg PO BID 05/10/19 12/07/19 History acetaminophen 650 mg PO Q6H PRN 07/06/19 12/07/19 History amlodipine 5 mg PO DAILY 09/15/19 12/07/19 History ferrous sulfate 325 mg (65 mg 325 mg PO BID 10/12/19 12/07/19 History iron) tablet metoprolol succinate 50 mg PO DAILY 11/21/19 12/07/19 History sertraline 25 mg PO DAILY 11/21/19 12/07/19 History glipizide 5 mg PO BID #60 tab 11/28/19 12/07/19 Rx tiotropium bromide [Spiriva 2 puff INHALATION DAILY 12/07/19 12/07/19 History Respimat] torsemide 20 mg PO DAILY 12/07/19 12/07/19 History Allergies Allergy/AdvReac Type Severity Reaction Status Date / Time codeine AdvReac Intermediate NAUSEA Verified 12/07/19 00:24 Past Med/Surg History Medical History AAA (abdominal aortic aneurysm) Atrial fibrillation (Chronic) dx 2015 - no longer taking warfarin - recent fall w/ brain bleed 03/2019 Chronic diastolic heart failure Chronic systolic heart failure (Chronic) CKD (chronic kidney disease), stage IV Diabetes mellitus, type 2 (Chronic) Dyslipidemia (Chronic) ESRD (end stage renal disease) History of CVA (cerebrovascular accident) (Chronic) 2015 - dx w/ a.fib - [facility] - no deficits History of seizure (Resolved) history obtained from dtr - unsure of last seizure 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 - fall - [place] ER visit 03/30/2019 --> [facility] HTN (hypertension), benign (Chronic) Nocturnal hypoxemia CARLOS ALBERTO (obstructive sleep apnea) (Chronic) does not tolerate CPAP Severe chronic obstructive pulmonary disease Tobacco use disorder (Chronic) Surgical History History of back surgery (Resolved) History of cataract surgery (Chronic) History of colonoscopy (Chronic) History of esophagogastroduodenoscopy (EGD) (Chronic) History of lumbar spinal fusion (Chronic) x 2 History of tooth extraction (Chronic) Family History Mother Cancer Brother Diabetes Heart disease Social History Preferred Language: Uzbek Communication Ability: Effective Printed Forms Proofreader Required: No Beliefs That Will Affect Care: None marital status: Current Living Situation: Spouse and Family Feels Safe at Home: Yes Smoking Status: Current every day smoker Tobacco Type: cigarettes ; Cigarettes Per Day: 6 ; Second Hand Exposure: No ; Hx Alcohol Use: No Hx Substance Use: No Review of Systems See HPI for pertinent positives & negatives. and A total of 10 systems reviewed and were otherwise negative Physical Exam Vital Signs Vital Signs - 24 hr 12/06/19 23:39 12/06/19 23:48 12/07/19 00:46 Temperature 37.6 C H Temperature Source Oral Pulse Rate 97 H Pulse Rate [Apical] 102 H Pulse Rate [Right Radial] 102 H Respiratory Rate 20 18 18 Respiratory Effort / Characteristics Non-Labored Spontaneous Blood Pressure 151/61 H Blood Pressure [Left Arm] 151/78 H Blood Pressure Mean 91 Blood Pressure Mean [Left Arm] 102 Pulse Oximetry 96 97 96 Oxygen Delivery Method Nasal Cannula Nasal Cannula Nasal Cannula Oxygen Flow Rate 3 2 3 Sepsis Recent Fever Within 48 Hours No Sepsis Action Taken by Nursing No Action Required GENERAL: Patient is in no acute distress. HEENT: No acute trauma, normocephalic atraumatic, mucous membranes moist, no nasal congestion, no scleral icterus. NECK: No stridor, no adenopathy, no meningismus, trachea is midline. CHEST: Tenderness to the mid low sternal chest wall. LUNGS: Diminished breath sounds bilaterally. Crackles bilaterally. Breath sounds equal. No respiratory distress. HEART: Distant heart tones, no obvious murmur. Regular rate, irregular rhythm. ABDOMEN: Soft, nontender, bowel sounds positive, no hernias, no peritonitis. EXTREMITIES: Mild bilateral pedal edema. No cyanosis, full range of motion of all the joints without pain or difficulty, no signs for acute trauma. NEUROLOGIC: Oriented x 3, no acute motor or sensory deficits, no focal weakness. SKIN: No rash, no jaundice, no diaphoresis. Course Course 2332: Past medical records reviewed. The patient was evaluated in room A2. A complete history and physical exam was performed. The patient was discharged from the hospital on 11/28/19 after hospitalization for CHF. While in the hospital, the patient had a thoracentesis. 0029: I talked to the patient and his family and updated them on the results. The patient reports that his neck is now achy and tender to touch. 0036: I discussed the case with Dr. Guzman Hospitalist who accepts the patient for further evaluation. Administered Medications Ceftriaxone Sodium (Rocephin) 2,000 mg in 70 mls @ 140 mls/hr IV NOW STA Stop: 12/07/19 00:54 Last Admin: 12/07/19 00:40 Dose: 140 mls/hr Documented by: [id number] Discontinued Medications Albuterol (Duoneb) 3 ml INH NOW STA Stop: 12/06/19 23:39 Last Admin: 12/06/19 23:47 Dose: 3 ml Documented by: [id number] Methylprednisolone 60 mg/ (Syringe) 1.96 mls @ 1.5 mls/min IV NOW STA Stop: 12/07/19 00:25 Last Admin: 12/07/19 00:40 Dose: 1.5 mls/min Documented by: [id number] Acetaminophen (Ofirmev) 1,000 mg in 100 mls @ 400 mls/hr IV NOW STA Stop: 12/07/19 00:43 Last Admin: 12/07/19 00:39 Dose: 400 mls/hr Documented by: [id number] Magnesium Oxide (Mag-Ox) 400 mg PO NOW STA Stop: 12/07/19 00:33 Last Admin: 12/07/19 00:39 Dose: 400 mg Documented by: [id number] Methylprednisolone (Solumedrol) Confirm Administered Dose 80 mg .ROUTE .STK-MED ONE Stop: 12/07/19 00:35 Last Admin: 12/07/19 00:40 Dose: Not Given Documented by: [id number] Medical Decision Making Differential Diagnosis Differential diagnoses include CHF, pneumonia, bronchitis, exacerbation of COPD, anemia, electrolyte imbalance, NE, pneumothorax, PE, musculoskeletal pain, and others were considered. Medical Records Attestation: I reviewed the patient's medical records. Home Medications Current Medication List: was personally reviewed by me Laboratory Data Attestation: I reviewed the patient's lab results. Result diagrams: 12/06/19 23:40 12/06/19 23:40 Lab Results 12/06/19 12/06/19 12/06/19 Range/Units 23:40 23:40 23:40 WBC 13.89 H (4.8-10.8) K/uL RBC 4.05 L (4.7-6.1) M/uL Hgb 11.9 L (14.0-18.0) g/dL Hct 36.3 L (42-52) % MCV 89.6 (80-100) fL MCH 29.4 (25-34) pg MCHC 32.8 (32-36) g/dL RDW Std Deviation 48.0 H (36.4-46.3) fL RDW Coeff of Kiah 14.7 H (11.5-14.5) % Plt Count 306 (130-400) K/uL MPV 9.8 (7.4-10.4) fL Immature Gran % (Auto) 0.2 % Neut % (Auto) 87.2 % Lymph % (Auto) 5.0 % Stonewall % (Auto) 7.1 % Eos % (Auto) 0.4 % Baso % (Auto) 0.1 % Immature Gran # (Auto) 0.03 H (0.00-0.02) K/uL Neut # (Auto) 12.13 H (1.4-6.5) K/uL Lymph # (Auto) 0.69 L (1.2-3.4) K/uL Stonewall # (Auto) 0.98 H (0.11-0.59) K/uL Eos # (Auto) 0.05 (0-0.5) K/uL Baso # (Auto) 0.01 (0-0.2) K/uL PT Cancelled INR Cancelled APTT Cancelled PTT Ratio Cancelled Sodium 139 (136-145) mmol/L Potassium 4.4 (3.5-5.1) mmol/L Chloride 103 (98-107) mmol/L Carbon Dioxide 34 H (21-32) mmol/L Anion Gap 2.0 L (3-11) BUN 22 H (7-18) mg/dl Creatinine 2.32 H (0.6-1.4) mg/dl Est Cr Clr Drug Dosing 34.1 ml/min Est GFR ( Amer) 29.9 Est GFR (Non-Af Amer) 25.8 BUN/Creatinine Ratio 9.4 L (10-20) Glucose 192 H (70-99) mg/dl Calcium 8.8 (8.5-10.1) mg/dl Magnesium 1.7 L (1.8-2.4) mg/dl Total Bilirubin 0.3 (0.2-1) mg/dl AST 10 L (15-37) U/L ALT 16 (12-78) U/L Alkaline Phosphatase 68 (45-117) U/L Troponin I < 0.015 (0-0.045) ng/ml Total Protein 6.8 (6.4-8.2) gm/dl Albumin 2.8 L (3.4-5.0) gm/dl Globulin 4.0 (2.5-4.0) gm/dl Albumin/Globulin Ratio 0.7 L (0.9-2) Influenza Type A (PCR) (Neg) Influenza Type B (PCR) (Neg) 12/06/19 Range/Units 23:54 WBC (4.8-10.8) K/uL RBC (4.7-6.1) M/uL Hgb (14.0-18.0) g/dL Hct (42-52) % MCV (80-100) fL MCH (25-34) pg MCHC (32-36) g/dL RDW Std Deviation (36.4-46.3) fL RDW Coeff of Kiah (11.5-14.5) % Plt Count (130-400) K/uL MPV (7.4-10.4) fL Immature Gran % (Auto) % Neut % (Auto) % Lymph % (Auto) % Stonewall % (Auto) % Eos % (Auto) % Baso % (Auto) % Immature Gran # (Auto) (0.00-0.02) K/uL Neut # (Auto) (1.4-6.5) K/uL Lymph # (Auto) (1.2-3.4) K/uL Stonewall # (Auto) (0.11-0.59) K/uL Eos # (Auto) (0-0.5) K/uL Baso # (Auto) (0-0.2) K/uL PT INR APTT PTT Ratio Sodium (136-145) mmol/L Potassium (3.5-5.1) mmol/L Chloride (98-107) mmol/L Carbon Dioxide (21-32) mmol/L Anion Gap (3-11) BUN (7-18) mg/dl Creatinine (0.6-1.4) mg/dl Est Cr Clr Drug Dosing ml/min Est GFR ( Amer) Est GFR (Non-Af Amer) BUN/Creatinine Ratio (10-20) Glucose (70-99) mg/dl Calcium (8.5-10.1) mg/dl Magnesium (1.8-2.4) mg/dl Total Bilirubin (0.2-1) mg/dl AST (15-37) U/L ALT (12-78) U/L Alkaline Phosphatase (45-117) U/L Troponin I (0-0.045) ng/ml Total Protein (6.4-8.2) gm/dl Albumin (3.4-5.0) gm/dl Globulin (2.5-4.0) gm/dl Albumin/Globulin Ratio (0.9-2) Influenza Type A (PCR) Neg for Influ A (Neg) Influenza Type B (PCR) Neg for Influ B (Neg) Imaging Data Attestation: I personally reviewed and interpreted this imaging study as follows: My Impression: ONE VIEW CHEST X-RAY: Mild CHF with a left pleural effusion. No pneumonia. Compared to the chest x-ray from 11/23/19, the CHF appears improved. The left pleural effusion appears ernst lar to the previous. ECG Data Attestation: I personally reviewed and interpreted this ECG as follows: Indication: + chest pain and + SOB/dyspnea Rate (beats per minute): 96 Rhythm: + atrial fibrillation ECG Intervals/blocks: + Normal QT-c (444) ECG ST segments: no ST elevation ECG Findings: + Other (artifact present); no PVCs Blood Pressure Blood Pressure Findings: Elevated blood pressure Blood Pressure Disposition: further management by hospitalist [facility] Narrative There is a mild leukocytosis which could be consistent with infection. A mild the anemia was noted as well. The anemia is baseline looking back at previous testing. There was an elevation to the creatinine consistent with the patient's dialysis need. Magnesium slightly low at 1.7. No liver enzyme elevation. EKG shows A. fib, no acute ischemic change. Cardiac enzyme testing x1 is not consistent with acute cardiac injury. Chest film shows some mild CHF and a small left pleural effusion. I do not see any evidence for pneumonia. The porter st film looks improved compared to a recent film from late October. Influenza testing was negative. Blood cultures are pending. Patient was given a dose of IV Tylenol for his aches and low-grade temperature elevation. He received a DuoNeb. Was given IV ceftriaxone as empiric antibiotic coverage. He was given oral magnesium to treat the lower magnesium value. He was given IV Solu-Medrol. I do think the patient has a bronchitis or possibly even an early pneumonia just not yet seen on film. The infection has led to his aching, the low-grade temperature, is increasing dyspnea, the white blood cell count elevation. I do think given his underlying pulmonary status, given his dialysis need that admission to the hospital would be warranted. I spoke to the patient, I talked with case management. I spoke to the patient's family. The on-call hospitalist was consulted. Hospitalization was felt prudent. Impression & Plan Shortness of breath, Precordial chest pain, Leukocytosis, Hypomagnesemia Discharge Plan Visit Data Chief Complaint: Shortness of Breath/Dyspnea Stated Complaint: trouble breathing ED Provider: Aman Goodman Discharge Problem: Shortness of breath, Precordial chest pain, Leukocytosis, Hypomagnesemia Patient Disposition: Being Evaluated by Hospitalist Forms Stand Alone Forms: My [facility] Prescriptions Prescriptions: No Action ferrous sulfate [Feosol] 325 mg (65 mg iron) tablet 325 mg PO BID RF: 0 levetiracetam 500 mg Tablet 500 mg PO BID RF: 0 acetaminophen 650 mg Tablet Extended Release 650 mg PO Q6H PRN (Reason: pain/fever) RF: 0 amlodipine 10 mg tablet 5 mg PO DAILY RF: 0 lovastatin 40 mg Tablet 80 mg PO HS RF: 0 Victoza 2-Fernando 0.6 mg/0.1 mL (18 mg/3 mL) Pen Injector 1.2 mg SUBCUT DAILY RF: 0 cholecalciferol (vitamin D3) 2,000 unit Tablet 2,000 units PO DAILY RF: 0 metoprolol succinate 50 mg tablet extended release 24 hr 50 mg PO DAILY RF: 0 sertraline 25 mg tablet 25 mg PO DAILY RF: 0 glipizide 5 mg tablet 5 mg PO BID Qty: 60 RF: 1 torsemide 20 mg tablet 20 mg PO DAILY RF: 0 Spiriva Respimat 2.5 mcg/actuation Mist 2 puff INHALATION DAILY RF: 0 Referrals Referrals: Aden Colon MD [Primary Care Provider] - Discharge Problem: Leukocytosis Qualifiers: Leukocytosis type: unspecified Qualified Code(s): D72.829 - Elevated white blood cell count, unspecified The scribe's documentation has been prepared under my direction and personally reviewed by me in its entirety. I confirm that the note above accurately reflects all work, treatment, procedures, and medical decision making performed by me.
[2019-12-07] MEDS ORDERED: cefTRIAXone SODIUM 2,000 MG/70 ML BAG IV STA (00:25)
[2019-12-07] MEDS ORDERED: ACETAMINOPHEN 1,000 MG/100 ML VIAL IV STA (00:29)
[2019-12-07] MEDS ORDERED: MAGNESIUM OXIDE 400 MG TAB PO STA (00:32)
[2019-12-07 00:48] LABS: Influenza A virus by PCR Neg for Influ A (Neg); Influenza B virus by PCR Neg for Influ B (Neg)
[2019-12-07 00:55] LABS: INR 1.1 (0.9-1.1); Partial Thromboplastin Time 25.8 Seconds (21.0-31.0); Prothrombin Time 10.9 Seconds (9.0-12.0)
--- NOTE | 2019-12-07 03:14 | History and Physical Report ---
DATE OF ADMISSION: 12/07/2019 CHIEF COMPLAINT: Shortness of breath and chest pain. HISTORY OF PRESENT ILLNESS: This is a 79-year-old male with past medical history significant for type 2 diabetes, end-stage renal disease on hemodialysis, hyperlipidemia, obstructive sleep apnea on 3 liters oxygen during the nighttime, COPD, chronic diastolic CHF, hypertension, chronic atrial fibrillation, who presents with chest pain and shortness of breath. The patient was seen recently in the hospital, treated for shortness of breath thought to be secondary to pleural effusion. About 1.3 L of left-sided pleural effusion was drained and also treated for CHF, and during the hospitalization had hypoglycemia, so glipizide was cut down to 50%. The patient lives with his daughter. He walks sometimes using walking stick . As per daughter was doing okay until last night around 10:00 p.m. when he complained of chest pain, neck pain, moderate in severity, and also shortness of breath and is coughing and sometimes bringing up colorless sputum. No fever at home, but in the ER, he was spiking mild temperature and has some leukocytosis. Currently, somewhat drowsy but can answer questions. On 3 liters currently saturating okay. Denies any headache, no blurred vision, no earache, no runny nose, no sore throat. Appetite is okay. No difficulty swallowing. Chest pain is more on taking deep breath, and feeling short of breath. Leg swelling is somewhat more than usual as per daughter. No nausea, no vomiting, no abdominal pain. No diarrhea or constipation. Normal bladder movements. No hematuria. Hemodynamics currently stable. ALLERGIES: CODEINE. PAST MEDICAL HISTORY: As mentioned above. PAST SURGICAL HISTORY: Cataract surgery, colonoscopy, lumbar disc surgery x2. MEDICATIONS: The patient is on glipizide 5 mg p.o. b.i.d., Spiriva 2 inhalations 2 puffs daily, Zoloft 25 mg p.o. daily, Toprol-XL 50 mg p.o. daily, Demadex 80 mg p.o. daily, albuterol 2 puffs every 4 hours p.r.n., Tylenol 650 mg p.o. q. 6 hours p.r.n., amlodipine 5 mg p.o. daily, ferrous sulfate 325 mg p.o. b.i.d., Keppra 500 mg p.o. b.i.d., Victoza 1.2 mg under skin daily, lovastatin 80 mg p.o. at bedtime, vitamin D 2000 units p.o. daily. FAMILY HISTORY: Significant for mother had colon cancer, sister has cancer, brother has heart disorder. SOCIAL HISTORY: Currently living with his daughter. Smokes average 0.8 packs a day for last 55 years. No alcohol use, no drug use. REVIEW OF SYSTEMS: As per HPI. Rest of the review of systems negative. PHYSICAL EXAMINATION: GENERAL: The patient is of moderate build, not in acute distress. VITAL SIGNS: Temperature 36.6, pulse 90, respiratory rate 18, blood pressure 112/56, oxygen 94% on 3 liters. HEENT: No pallor, no icterus. Pupils equal, round, and reactive to light. NECK: No JVD, no neck masses, no carotid bruit. CARDIOVASCULAR: S1, S2 heard, regular rate and rhythm, no murmur, no gallop. RESPIRATORY SYSTEM: Normal AP diameter. Diminished bilateral breath sounds. Mild bibasilar crackles heard. No wheezing heard. No accessory muscle use. ABDOMEN: Soft, bowel sounds present, nontender. No distention. CENTRAL NERVOUS SYSTEM: Alert and oriented, nonfocal. EXTREMITIES: Lower extremity edema present, no erythema seen. LABORATORY DATA: WBC of 13.8, hemoglobin 11.9, hematocrit 36.3, platelets 306. PT 10.9, INR 1.1, APTT 25.8. Sodium 139, potassium 4.4, chloride 103, BUN 22, creatinine 2.3, serum glucose 192, magnesium 1.7, total bilirubin 0.3, AST 10, ALT 16, alkaline phosphatase 60, troponin I less than 0.015. Influenza A and B PCR negative. IMAGING DATA: Chest x-ray with left pleural effusion seen. EKG: AFib with rate of 96, no acute ST changes seen. ASSESSMENT AND PLAN: This is a 79-year-old male who presents with chest pain and shortness of breath. 1. Shortness of breath, most likely secondary to possible bronchitis versus developing pneumonia, received a dose of steroid in the ER. Currently not wheezing. Will continue with IV Rocephin and doxycycline. Nebs around the clock and p.r.n. Continue home inhalers and monitor. 2. Left pleural effusion, recently drained 1.3 liters. We will get an ultrasound, could be contributing to shortness of breath. 3. Chest pain. This pain is more when taking deep breath and also tenderness with palpation. There also has been neck pain. Recently had echo which showed grade 2 diastolic dysfunction, normal EF. We will follow serial cardiac enzymes and monitor in the med/surg tele. 4. Chronic diastolic congestive heart failure. Continue his home torsemide. On HD. 5. End-stage renal disease, on hemodialysis, had dialysis on Wednesday. We will consult nephrology in the a.m. 6. Diabetes. We will hold his glipizide. Placed him on Lantus 5 units b.i.d. and insulin sliding scale. Monitor blood sugars. 7. Hypertension. Continue his home medication of torsemide, Toprol-XL, and amlodipine. Will monitor the blood pressure. 8. Sleep apnea, on oxygen while sleeping. 9. Chronic atrial fibrillation, not on anticoagulation in the setting of subdural hematoma, was on Coumadin in March 2019. 10. History of chronic obstructive pulmonary disease, management as above. 11. Tobacco use disorder, needs counseling, still smokes. 12. Depression. Continue sertraline. 13. Deep venous thrombosis prophylaxis, sequential compression devices for now. 14. Disposition: Closely monitor in the med/surg tele. Code status DNR as per my discussion with the daughter. PT, OT prior to discharge. Social service to help with discharge planning. ROSANAD
[2019-12-07] MEDS ORDERED: POLYETHYLENE (MIRALAX) 17 GM PACK PO PRN (04:48)
[2019-12-07] MEDS ORDERED: IPRATROPIUM BROMIDE NEB SOLN 0.02% 2.5 ML VIAL INH PRN (04:48)
[2019-12-07] MEDS ORDERED: LEVALBUTEROL HCL 0.63 MG/3 ML NEB NEB PRN (04:48)
[2019-12-07] MEDS ORDERED: NITROGLYCERIN SL 0.4 MG/TAB TAB SL PRN (04:48)
[2019-12-07] MEDS ORDERED: ACETAMINOPHEN 325 MG TAB PO PRN (04:48)
[2019-12-07] MEDS ORDERED: ONDANSETRON INJ 2 MG/ML 2 ML VIAL IV PRN (04:48)
[2019-12-07] MEDS ORDERED: ALBUTEROL HFA 8 GM INHALER INH PRN (04:48)
[2019-12-07] MEDS ORDERED: XOPENEX/ATROVENT 0.63mg/0.5MG NEB COMBO NEB PRN (04:48)
[2019-12-07 05:32] LABS: Basophils # (auto) 0.01 K/uL (0-0.2); Basophils % (auto) 0.1 %; Hematocrit (blood only) 34.1 % (42-52); Hemoglobin 11.2 g/dL (14.0-18.0); Immature Granulocytes # (auto) 0.02 K/uL (0.00-0.02); Immature Granulocytes % (auto) 0.1 %; Lymphocytes # (auto) 0.29 K/uL (1.2-3.4); Lymphocytes % (auto) 1.8 %; Mean Corpuscular Hemoglobin 29.3 pg (25-34); Mean Corpuscular Hgb Conc 32.8 g/dL (32-36); Mean Corpuscular Volume 89.3 fL (80-100); Mean Platelet Volume 9.7 fL (7.4-10.4); Monocytes # (auto) 0.53 K/uL (0.11-0.59); Monocytes % (auto) 3.4 %; Neutrophils # (auto) 14.86 K/uL (1.4-6.5); Neutrophils % (auto) 94.6 %; Platelet Count 250 K/uL (130-400); RDW Coefficient of Variation 14.8 % (11.5-14.5); Red Blood Count 3.82 M/uL (4.7-6.1); White Blood Count 15.71 K/uL (4.8-10.8)
[2019-12-07] MEDS ORDERED: CARBOHYDRATES FOR HYPOGLYCEMIA PO PRN (05:45)
[2019-12-07] MEDS ORDERED: GLUCOSE 40% GEL 15 GM TUBE PO PRN (05:45)
[2019-12-07] MEDS ORDERED: DEXTROSE 50% 50 ML SYRINGE IV PRN (05:45)
[2019-12-07] MEDS ORDERED: GLUCOSE 10 TABS/TUBE PO PRN (05:45)
[2019-12-07] MEDS ORDERED: GLUCAGON FOR INJ 1 MG VIAL SQ PRN (05:45)
[2019-12-07 05:48] LABS: Estimated Average Glucose 143 mg/dl; Hemoglobin A1C 6.6 % (4.5-5.6)
[2019-12-07 06:02] LABS: Calcium 8.6 mg/dl (8.5-10.1); Creatinine Clr Calc Pharmacy 31.7 ml/min; Est GFR (African American) 27.3; Est GFR (Non-African American) 23.5; Magnesium 1.7 mg/dl (1.8-2.4); Potassium 4.3 mmol/L (3.5-5.1)
[2019-12-07] MEDS: LEVALBUTEROL 1.25MG/0.5ML NEB INH SCH ×2 (07:20→13:17)
[2019-12-07] MEDS: IPRATROPIUM BROMIDE NEB SOLN 0.02% 2.5 ML VIAL INH SCH ×2 (07:20→13:17)
[2019-12-07] MEDS ORDERED: FERROUS SULFATE 325 MG TAB PO SCH (08:00)
[2019-12-07] MEDS: INSULIN ASPART 100 UNITS/ML 3 ML PEN SC SCH ×4 (08:18→20:32)
[2019-12-07] MEDS: INSULIN GLARGINE SOLOSTAR 100 UNITS/ML 3 ML PEN SC SCH ×2 (08:21→20:33)
--- NOTE | 2019-12-07 08:48 | XRay Report ---
XR chest 1V portable CLINICAL HISTORY: 79 years-old Male presenting with SOB. TECHNIQUE: Portable upright AP view of the chest was obtained. COMPARISON: 11/23/2019. FINDINGS: Atherosclerosis of the aortic arch. Cardiac silhouette enlarged. Significant interval decrease in bib asilar opacities though there is persistent left greater than right opacity. Suspected underlying lef t pleural effusion. Pulmonary vascular prominence and interstitial prominence has also slightly decre ased. No pneumothorax. Osseous structures normal. IMPRESSION: 1. Interval decrease in bibasilar infiltrates, likely decreased pulmonary edema. Mild edema and left greater than right bibasilar atelectasis persists. 2. Mild decrease in volume overload and congestive change though some degree of congestive change pe rsists. 3. Suspected underlying left pleural effusion. ACT 112: Negative or not required by law. Electronically signed by: Robinson Allison M.D. 12/07/2019 8:47 AM
--- NOTE | 2019-12-07 08:52 | Ultrasound Report ---
US effusion-chest/mediastinum CLINICAL HISTORY: left pleural effusion COMPARISON STUDY: Chest x-ray dated 12/06/2019 FINDINGS: There is a left pleural effusion with a volume of 340 cc. This was not marked due to the ab sence of a clear pocket. There was prominent atelectatic lung within the pleural effusion. IMPRESSION: Left pleural effusion with an estimated volume of 340 cc ACT 112: Negative or not required by law. Electronically signed by: Lino Mae M.D. 12/07/2019 8:51 AM
[2019-12-07] MEDS ORDERED: XOPENEX/ATROVENT 1.25mg/0.5MG NEB COMBO NEB SCH (09:00)
[2019-12-07] MEDS ORDERED: cefTRIAXone SODIUM 1,000 MG in DEXTROSE 5% 50 ML IV SCH (09:00)
[2019-12-07] MEDS: SERTRALINE HCL 50 MG TABLET PO SCH (10:22)
[2019-12-07] MEDS: CHOLECALCIFEROL 1,000 UNITS TAB PO SCH (10:22)
[2019-12-07] MEDS: TORSEMIDE 20 MG TAB PO SCH (10:22)
[2019-12-07] MEDS: AMLODIPINE BESYLATE 5 MG TAB PO SCH (10:22)
[2019-12-07] MEDS: METOPROLOL SUCC 50MG EXT REL TAB PO SCH (10:22)
[2019-12-07] MEDS: DOXYCYCLINE HYCLATE 100 MG CAP PO SCH ×2 (10:22→20:38)
[2019-12-07] MEDS: levETIRAcetam 500 MG TAB PO SCH ×2 (10:22→20:38)
[2019-12-07] MEDS: TIOTROPIUM BROMIDE 5 PUFF/90 MCG INH INH SCH (10:23)
[2019-12-07] MEDS ORDERED: INSULIN GLARGINE SOLOSTAR 100 UNITS/ML 3 ML PEN SC ONE (12:30)
[2019-12-07] MEDS ORDERED: INSULIN ASPART 100 UNITS/ML 3 ML PEN SC ONE (12:30)
[2019-12-07 13:18] LABS: Albumin Globulin Ratio 0.7 (0.9-2); Albumin Level 2.4 gm/dl (3.4-5.0); BUN Creatinine Ratio 10.6 (10-20); Bilirubin,Total 0.3 mg/dl (0.2-1); Calcium 8.6 mg/dl (8.5-10.1); Creatinine Clr Calc Pharmacy 26.6 ml/min; Est GFR (African American) 22.1; Globulin 3.6 gm/dl (2.5-4.0); Magnesium 1.9 mg/dl (1.8-2.4); Potassium 5.1 mmol/L (3.5-5.1)
[2019-12-07 13:30] LABS: Beta-Hydroxybutyrate 1.06 mg/dl (0.2-2.81)
--- NOTE | 2019-12-07 17:18 | Hospitalist Progress Note ---
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 Cardiac silhouette enlarged. Significant interval decrease in bibasilar opacities though there is persistent left greater than right opacity. Suspected underlying left pleural effusion. Pulmonary vascular prominence and interstitial prominence has also slightly decreased. No pneumothorax. Osseous structures normal -12/07/2019: Left pleural effusion with an estimated volume of 340 cc -patient was empirically started on ceftriaxone and doxycycline in case of bronchitis versus pneumonia, but current work up does not suggest infectious process at this time, will continue respiratory antibiotics just in case given Leukocytosis on admission of 13,000. The solumedrol by ED provider will also contribute to leukocytosis -the left side pleural effusion is too small amount for thoracentesis -have discussed with nephrology to continue dialysis on Wednesday/Wednesday/Wednesday schedule to treat for potential volume overload as cause for shortness of breath as evidence by some return of left pleural effusion -in regards to initial complaint of chest pain with shortness of breath at home, troponins are negative -CPAP with sleep while inpatient -it does not appear that patient. is in COPD exacerbation. Patient uses tobacco. will not give further respiratory steroids. nebulizer treatments to be given on prn basis if acute shortness of breath. continue home inhalers atrial fibrillation -rate controlled atrial fibrillation on panel monitor -continue metoprolol -patient is not on systemic anticoagulation because he had subdural hematoma while on coumadin in March 2019 -continue Keppra for seizure prophylaxis Hypertension. -Continue his home medication of torsemide, Toprol-XL, and amlodipine. Depression -Continue sertraline. Subjective Patient seen and examined. denied chest pain today. does not appear to have acute respiratory distress and is using nasal cannula oxygen. no abdominal pain. no nausea. no vomiting. Hyperglycemia because of previous solumedrol on presentation in the ED and because of underlying diabetes mellitus. Review of Systems Review of Systems: All systems reviewed & are unremarkable except as noted in HPI & below Physical Exam Eyes: PERRL, conjunctivae normal, anicteric sclerae EOM intact bilaterally ENMT: external ear and nose normal, oropharynx normal Respiratory: normal respiratory effort Cardiovascular: Rate/Rhythm: regular rate and regular rhythm Gastrointestinal (Abdomen): normal bowel sounds, soft, nontender, no hepatosplenomegaly Musculoskeletal: Head/Neck/Chest: normocephalic and head atraumatic Neurologic: PERRL, EOMI, accommodation nl, no face palsy, no dysarthria CN's II-XI intact bilaterally Psychiatric: A+Ox3, euthymic affect Results & Data Vital Signs (Past 12 Hours) Vital Signs Temp Pulse Pulse Pulse Resp BP Pulse Ox 12/07/19 16:42 37.2 C 93 H 18 108/66 97 12/07/19 15:31 97 H 12/07/19 11:26 37.0 C 90 18 113/71 97 12/07/19 07:29 37.2 C 80 18 134/61 96 12/07/19 07:20 87 18 98 12/07/19 05:32 36.8 C 84 18 123/64 97
--- NOTE | 2019-12-07 17:59 | Nephrology Consultation ---
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 PMH includes AF off of AC d/t 03/2019 SDH, DM2, chronic HFpEF, COPD, HTN, active tobacco abuse, AAA, CARLOS ALBERTO on 02NC. Started on dialysis last month after presenting w/ recurrent volume overload and L pleural effusion, s/p tap at that admission. L pleural effusion still present but on u/s today estimated at 340 mL -- not a target for thoracentesis. troponins are negative. had been started on on abtx/steroids initially but hospitalist does not favor infectious process. this is his 5th admission for acute on chronic respiratory failure since june. on evaluation this evening he states that breathing and chest discomfort are both much improved Allergies Allergy/AdvReac Type Severity Reaction Status Date / Time codeine AdvReac Intermediate NAUSEA Verified 12/07/19 00:24 Home Medications Home Medications Medication Instructions Recorded Confirmed Type Victoza 2-Fernando 1.2 mg SUBCUT DAILY 02/09/19 12/07/19 History cholecalciferol (vitamin D3) 2,000 units PO DAILY 02/09/19 12/07/19 History lovastatin 80 mg PO HS 02/09/19 12/07/19 History levetiracetam 500 mg PO BID 05/10/19 12/07/19 History acetaminophen 650 mg PO Q6H PRN 07/06/19 12/07/19 History amlodipine 5 mg PO DAILY 09/15/19 12/07/19 History ferrous sulfate 325 mg (65 mg 325 mg PO BID 10/12/19 12/07/19 History iron) tablet metoprolol succinate 50 mg PO DAILY 11/21/19 12/07/19 History sertraline 25 mg PO DAILY 11/21/19 12/07/19 History glipizide 5 mg PO BID #60 tab 11/28/19 12/07/19 Rx tiotropium bromide [Spiriva 2 puff INHALATION DAILY 12/07/19 12/07/19 History Respimat] torsemide 80 mg PO DAILY 12/07/19 12/07/19 History Patient History Medical History AAA (abdominal aortic aneurysm) Atrial fibrillation (Chronic) dx 2015 - no longer taking warfarin - recent fall w/ brain bleed 03/2019 Chronic diastolic heart failure Chronic systolic heart failure (Chronic) CKD (chronic kidney disease), stage IV Diabetes mellitus, type 2 (Chronic) Dyslipidemia (Chronic) ESRD (end stage renal disease) History of CVA (cerebrovascular accident) (Chronic) 2015 - dx w/ a.fib - [facility] - no deficits History of seizure (Resolved) history obtained from dtr - unsure of last seizure 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 - fall - [place] ER visit 03/30/2019 --> [facility] [place] HTN (hypertension), benign (Chronic) Nocturnal hypoxemia CARLOS ALBERTO (obstructive sleep apnea) (Chronic) does not tolerate CPAP Severe chronic obstructive pulmonary disease Tobacco use disorder (Chronic) Surgical History History of back surgery (Resolved) History of cataract surgery (Chronic) History of colonoscopy (Chronic) History of esophagogastroduodenoscopy (EGD) (Chronic) History of lumbar spinal fusion (Chronic) x 2 History of tooth extraction (Chronic) Family History Mother Cancer Brother Diabetes Heart disease Social History Preferred Language: Barbadian Communication Ability: Effective Clarity Developer Required: No Beliefs That Will Affect Care: None marital status: Current Living Situation: Family Other Information That Helps Us Care for You: No Feels Safe at Home: Yes Safety Concerns: Feels Safe At This Time Smoking Status: Current every day smoker Tobacco Type: cigarettes ; Cigarettes Per Day: 6 ; Do You Dip or Chew Tobacco: No ; Second Hand Exposure: No ; Tobacco Cessation Education Requested by Patient: No Hx Alcohol Use: No Hx Substance Use: No Review of Systems Review of Systems: All systems reviewed & are unremarkable except as noted in HPI & below Respiratory: as per Subjective / HPI Cardiovascular: as per Subjective / HPI and + dyspnea on exertion; no chest pain, no palpitations, no lightheadedness and no edema Gastrointestinal: no abdominal pain, no early satiety, no vomiting and no change in bowel habits Genitourinary: no difficulty urinating Musculoskeletal: + back pain, + neck pain, + joint pain and + stiffness Integumentary: no non-healing lesions Neurologic: + unsteadiness and + generalized weakness Physical Exam Constitutional: well developed, well nourished, + obese and cooperative lying flat on side on cpap/bipap Eyes: EOM intact bilaterally ENMT: Ears: no external ear abnormality Nose: no external nose abnormality Mouth: + dry oral mucous membranes Neck: no nuchal rigidity Respiratory: normal respiratory effort Auscultation: + diminished lung sounds Cardiovascular: Rate/Rhythm: regular rate and regular rhythm (HS distant) Extremities: + edema (trace) and + AV fistula (+t/b) Gastrointestinal (Abdomen): Inspection/Auscultation: normal bowel sounds Percussion/Palpation: abdomen soft; abdomen nontender Musculoskeletal: Extremities: strength 5/5 throughout Skin: no rashes, warm and dry Neurologic: valle, fluent though still limited amoutn of speech, no tremor Psychiatric: Orientation: alert, oriented to person and oriented to place Speech: normal rate/rhythm/volume of speech Affect: euthymic affect Results & Data Vital Signs (Past 12 Hours) Vital Signs Temp Pulse Pulse Pulse Resp BP Pulse Ox 12/07/19 16:42 37.2 C 93 H 18 108/66 97 12/07/19 15:31 97 H 12/07/19 11:26 37.0 C 90 18 113/71 97 12/07/19 07:29 37.2 C 80 18 134/61 96 12/07/19 07:20 87 18 98 Laboratory Results 12/07/19 05:25 12/07/19 12:43 Diagnostic Findings cxr . Interval decrease in bibasilar infiltrates, likely decreased pulmonary edema. Mild edema and left greater than right bibasilar atelectasis persists. 2. Mild decrease in volume overload and congestive change though some degree of congestive change persists. 3. Suspected underlying left pleural effusion.
[2019-12-07] MEDS ORDERED: LOVASTATIN 20 MG TAB PO SCH (21:00)
[2019-12-07 22:53] LABS: Appearance Urine Clear (Clear); Bacteria Urine Automated Negative (Negative); Bilirubin Urine Negative (Negative); Blood Urine Negative (Negative); Color Urine Yellow; Epithelial Cell Urine Auto 20-30 /lpf (0-5); Glucose Urine UA 2+ (Negative); Ketones Urine Negative (Negative); Leukocyte Esterase Urine Negative (Negative); Nitrite Urine Negative (Negative); Protein Urine 3+ (Negative); RBC Urine Automated 0-4 /hpf (0-4); Specific Gravity Urine 1.018 (1.000-1.030); Urobilinogen Urine Negative (Negative)
--- NOTE | 2019-12-07 23:09 | Electrocardiogram Report ---
Test Reason : Blood Pressure : / mmHG Vent. Rate : 096 BPM Atrial Rate : 208 BPM P-R Int : 000 ms QRS Dur : 096 ms QT Int : 352 ms P-R-T Axes : 000 065 038 degrees QTc Int : 444 ms Atrial fibrillation Abnormal ECG When compared with ECG of 21-NOV-2019 10:41, Atrial fibrillation has replaced Sinus rhythm Confirmed by Toni Gaines ([id number]) on 12/07/2019 11:09:25 PM Referred By: REFERRED SELF Confirmed By:Toni Gaines
[2019-12-08] MEDS ORDERED: cefTRIAXone SODIUM 2,000 MG in DEXTROSE 5% 50 ML IV SCH
[2019-12-08 04:12] VITALS: O2SAT 93
[2019-12-08] MEDS ORDERED: HEPARIN SOD (PORCINE) 1000 UNIT/ML 10 ML VIAL IV ONE (07:00)
[2019-12-08] MEDS ORDERED: SODIUM CHLORIDE 0.9% 1000ML 1,000 ML IV PRN (07:00)
[2019-12-08] MEDS ORDERED: IRON SUCROSE 100 MG in SYRINGE 0 ML IV ONE (07:00)
[2019-12-08] MEDS: levETIRAcetam 500 MG TAB PO SCH (07:48)
[2019-12-08] MEDS: TORSEMIDE 20 MG TAB PO SCH (07:48)
[2019-12-08] MEDS: CHOLECALCIFEROL 1,000 UNITS TAB PO SCH (07:48)
[2019-12-08] MEDS: DOXYCYCLINE HYCLATE 100 MG CAP PO SCH (07:48)
[2019-12-08] MEDS: SERTRALINE HCL 50 MG TABLET PO SCH (07:49)
[2019-12-08] MEDS: TIOTROPIUM BROMIDE 5 PUFF/90 MCG INH INH SCH (07:49)
[2019-12-08] MEDS: INSULIN GLARGINE SOLOSTAR 100 UNITS/ML 3 ML PEN SC SCH (07:50)
[2019-12-08] MEDS: INSULIN ASPART 100 UNITS/ML 3 ML PEN SC SCH ×2 (07:51→11:54)
[2019-12-08 08:39] LABS: Iron 18 mcg/dl (35-175); Transferrin 141 mg/dl (200-360); Transferrin Percent Saturation 9 % (20-50)
[2019-12-08] MEDS: HEPARIN SOD (PORCINE) 1000 UNIT/ML 10 ML VIAL IV SCH (11:51)
--- NOTE | 2019-12-08 12:42 | Electrocardiogram Report ---
Test Reason : Blood Pressure : / mmHG Vent. Rate : 084 BPM Atrial Rate : 000 BPM P-R Int : 000 ms QRS Dur : 100 ms QT Int : 362 ms P-R-T Axes : 000 067 053 degrees QTc Int : 427 ms Atrial fibrillation Incomplete right bundle branch block Abnormal ECG When compared with ECG of 06-DEC-2019 23:39, No significant change was found Confirmed by Hugo Slaughter ([id number]) on 12/08/2019 12:41:55 PM Referred By: REFERRED SELF Confirmed By:Hugo Slaughter
[2019-12-08 13:05] LABS: Basophils # (auto) 0.02 K/uL (0-0.2); Basophils % (auto) 0.2 %; Eosinophils # (auto) 0.01 K/uL (0-0.5); Eosinophils % (auto) 0.1 %; Hematocrit (blood only) 30.6 % (42-52); Hemoglobin 9.9 g/dL (14.0-18.0); Immature Granulocytes # (auto) 0.04 K/uL (0.00-0.02); Immature Granulocytes % (auto) 0.3 %; Lymphocytes # (auto) 1.08 K/uL (1.2-3.4); Lymphocytes % (auto) 8.9 %; Mean Corpuscular Hemoglobin 28.9 pg (25-34); Mean Corpuscular Hgb Conc 32.4 g/dL (32-36); Mean Corpuscular Volume 89.5 fL (80-100); Mean Platelet Volume 9.7 fL (7.4-10.4); Monocytes # (auto) 1.22 K/uL (0.11-0.59); Neutrophils # (auto) 9.78 K/uL (1.4-6.5); Neutrophils % (auto) 80.5 %; Platelet Count 232 K/uL (130-400); RDW Coefficient of Variation 14.8 % (11.5-14.5); RDW Standard Deviation 48.8 fL (36.4-46.3); Red Blood Count 3.42 M/uL (4.7-6.1); White Blood Count 12.15 K/uL (4.8-10.8)
[2019-12-08] MEDS: AMLODIPINE BESYLATE 5 MG TAB PO SCH (13:42)
[2019-12-08] MEDS: METOPROLOL SUCC 50MG EXT REL TAB PO SCH (13:42)
[2019-12-08 13:48] LABS: Albumin Globulin Ratio 0.6 (0.9-2); Albumin Level 2.4 gm/dl (3.4-5.0); BUN Creatinine Ratio 12.3 (10-20); Bilirubin,Total 0.3 mg/dl (0.2-1); Calcium 8.6 mg/dl (8.5-10.1); Creatinine Clr Calc Pharmacy 55.7 ml/min; Est GFR (African American) 54.1; Est GFR (Non-African American) 46.6; Globulin 3.9 gm/dl (2.5-4.0); Potassium 3.2 mmol/L (3.5-5.1); Total Protein 6.3 gm/dl (6.4-8.2)
[2019-12-08 13:55] VITALS: BP 125/65
[2019-12-08 13:58] VITALS: TEMP 98.6
--- NOTE | 2019-12-08 14:57 | Hospitalist Progress Note ---
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 Tmax of 37.6 on arrival does not meet criteria for fever -12/06/2019 chest X ray: Atherosclerosis of the aortic arch. Cardiac silhouette enlarged. Significant interval decrease in bibasilar opacities though there is persistent left greater than right opacity. Suspected underlying left pleural effusion. Pulmonary vascular prominence and interstitial prominence has also slightly decreased. No pneumothorax. Osseous structures normal -12/07/2019: Left pleural effusion with an estimated volume of 340 cc -patient was empirically started on ceftriaxone and doxycycline in case of bronchitis versus pneumonia, but current work up does not suggest infectious process at this time, was continued respiratory antibiotics just in case given Leukocytosis on admission of 13,000. The solumedrol by ED provider will also contribute to leukocytosis -the left side pleural effusion is too small amount for thoracentesis -have discussed with nephrology to continue dialysis on Wednesday/Wednesday/Wednesday schedule to treat for potential volume overload as cause for shortness of breath as evidence by some return of left pleural effusion -in regards to initial complaint of chest pain with shortness of breath at home, troponins are negative -CPAP with sleep while inpatient -it does not appear that patient is in COPD exacerbation; no further respiratory steroids needed. Patient uses tobacco. -patient had completed dialysis on 12/08/2019 and breathing comfortably on room air Discharge to home (Patient should continue scheduled dialysis sessions every Wednesday/Wednesday/Wednesday. Patient should follow up with appointments 12/15/2019 1:00 PM Provider Aden Colon MD Department [facility] 12/19/2019 1:40 PM [facility]2020 9:00 AM Provider Aden Colon MD Department [facility] 01/08/2020 11:20 AM Provider [facility]10/2020 9:30 AM Provider Luis Santos DO Department Cardiology, [facility]) Type 2 diabetes without exterminator helper current use of hyperglycemia -blood glucose was between 300 to 400 on 12/07/2019 because of respiratory steroids on admission and underlying diabetes mellitus -glucose is under 200 on 12/08/2019 -continue outpatient diabetes medications and outpatient family doctor follow up atrial fibrillation -rate controlled atrial fibrillation on monitoring and evaluation advisor -continue metoprolol -patient is not on systemic anticoagulation because he had subdural hematoma while on coumadin in March 2019 -continue Keppra for seizure prophylaxis Hypertension. -Continue home medication of torsemide, Toprol-XL, and amlodipine. Depression -Continue sertraline. 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 glucose controlled. patient family ready to take patient home. patient denies symptoms of chest pain or abdominal pain or dizziness or lightheadedness or nausea or vomiting. Discharge plans discussed Review of Systems Review of Systems: All systems reviewed & are unremarkable except as noted in HPI & below Physical Exam Eyes: PERRL, conjunctivae normal, anicteric sclerae EOM intact bilaterally ENMT: external ear and nose normal, oropharynx normal Respiratory: normal respiratory effort Cardiovascular: Rate/Rhythm: regular rate and regular rhythm Gastrointestinal (Abdomen): normal bowel sounds, soft, nontender, no hepatosplenomegaly Musculoskeletal: Head/Neck/Chest: normocephalic and head atraumatic Neurologic: PERRL, EOMI, accommodation nl, no face palsy, no dysarthria CN's II-XI intact bilaterally Psychiatric: A+Ox3, euthymic affect Results & Data Vital Signs (Past 12 Hours) Vital Signs Temp Pulse Pulse Pulse Pulse Resp BP 12/08/19 13:55 37.0 C 84 12/08/19 12:50 84 125/65 12/08/19 12:40 86 144/64 H 12/08/19 12:20 87 130/49 L 12/08/19 12:00 87 116/42 L 12/08/19 11:40 90 125/62 12/08/19 11:20 81 124/62 12/08/19 11:00 87 124/59 L 12/08/19 10:40 86 120/55 L 12/08/19 10:20 78 130/71 12/08/19 10:00 90 129/66 12/08/19 09:40 95 H 131/63 12/08/19 09:20 88 134/65 12/08/19 09:00 89 133/65 12/08/19 08:47 36.8 C 96 H 96 H 119/53 L 12/08/19 08:00 87 12/08/19 07:00 36.9 C 90 20 12/08/19 04:00 36.8 C 89 20 BP Pulse Ox 12/08/19 13:55 125/65 12/08/19 12:50 12/08/19 12:40 12/08/19 12:20 12/08/19 12:00 12/08/19 11:40 12/08/19 11:20 12/08/19 11:00 12/08/19 10:40 12/08/19 10:20 12/08/19 10:00 12/08/19 09:40 12/08/19 09:20 12/08/19 09:00 12/08/19 08:47 12/08/19 08:00 12/08/19 07:00 127/57 L 93 12/08/19 04:00 114/59 L 93
--- NOTE | 2019-12-08 15:04 | Discharge Summary ---
Date of Service December 08, 2019 Admission HPI Per Admitting Provider CHIEF COMPLAINT: Shortness of breath and chest pain. HISTORY OF PRESENT ILLNESS: This is a 79-year-old male with past medical history significant for type 2 diabetes, end-stage renal disease on hemodialysis, hyperlipidemia, obstructive sleep apnea on 3 liters oxygen during the nighttime, COPD, chronic diastolic CHF, hypertension, chronic atrial fibrillation, who presents with chest pain and shortness of breath. The patient was seen recently in the hospital, treated for shortness of breath thought to be secondary to pleural effusion. About 1.3 L of left-sided pleural effusion was drained and also treated for CHF, and during the hospitalization had hypoglycemia, so glipizide was cut down to 50%. The patient lives with his daughter. He walks sometimes using walking stick . As per daughter was doing okay until last night around 10:00 p.m. when he complained of chest pain, neck pain, moderate in severity, and also shortness of breath and is coughing and sometimes bringing up colorless sputum. No fever at home, but in the ER, he was spiking mild temperature and has some leukocytosis. Currently, somewhat drowsy but can answer questions. On 3 liters currently saturating okay. Denies any headache, no blurred vision, no earache, no runny nose, no sore throat. Appetite is okay. No difficulty swallowing. Chest pain is more on taking deep breath, and feeling short of breath. Leg swelling is somewhat more than usual as per daughter. No nausea, no vomiting, no abdominal pain. No diarrhea or constipation. Normal bladder movements. No hematuria. Hemodynamics currently stable. ALLERGIES: CODEINE. PAST MEDICAL HISTORY: As mentioned above. PAST SURGICAL HISTORY: Cataract surgery, colonoscopy, lumbar disc surgery x2. MEDICATIONS: The patient is on glipizide 5 mg p.o. b.i.d., Spiriva 2 inhalations 2 puffs daily, Zoloft 25 mg p.o. daily, Toprol-XL 50 mg p.o. daily, Demadex 80 mg p.o. daily, albuterol 2 puffs every 4 hours p.r.n., Tylenol 650 mg p.o. q. 6 hours p.r.n., amlodipine 5 mg p.o. daily, ferrous sulfate 325 mg p.o. b.i.d., Keppra 500 mg p.o. b.i.d., Victoza 1.2 mg under skin daily, lovastatin 80 mg p.o. at bedtime, vitamin D 2000 units p.o. daily. FAMILY HISTORY: Significant for mother had colon cancer, sister has cancer, brother has heart disorder. SOCIAL HISTORY: Currently living with his daughter. Smokes average 0.8 packs a day for last 55 years. No alcohol use, no drug use. REVIEW OF SYSTEMS: As per HPI. Rest of the review of systems negative. Admission Exam Per Admitting Provider PHYSICAL EXAMINATION: GENERAL: The patient is of moderate build, not in acute distress. VITAL SIGNS: Temperature 36.6, pulse 90, respiratory rate 18, blood pressure 112/56, oxygen 94% on 3 liters. HEENT: No pallor, no icterus. Pupils equal, round, and reactive to light. NECK: No JVD, no neck masses, no carotid bruit. CARDIOVASCULAR: S1, S2 heard, regular rate and rhythm, no murmur, no gallop. RESPIRATORY SYSTEM: Normal AP diameter. Diminished bilateral breath sounds. Mild bibasilar crackles heard. No wheezing heard. No accessory muscle use. ABDOMEN: Soft, bowel sounds present, nontender. No distention. CENTRAL NERVOUS SYSTEM: Alert and oriented, nonfocal. EXTREMITIES: Lower extremity edema present, no erythema seen. Principal Diagnosis Shortness of breath Acute and chronic respiratory failure chronic obstructive pulmonary disease CARLOS ALBERTO (obstructive sleep apnea) Left pleural effusion chronic diastolic (congestive) heart failure Endstage Renal Disease on Dialysis atrial fibrillation Hypertension Type 2 diabetes mellitus without residential current use of insulin with Hyperglycemia Discharge Exam Eyes PERRL, conjunctivae normal, anicteric sclerae EOM intact bilaterally ENMT external ear and nose normal, oropharynx normal Respiratory normal respiratory effort Cardiovascular Rate/Rhythm: regular rate and regular rhythm Gastrointestinal (Abdomen) normal bowel sounds, soft, nontender, no hepatosplenomegaly Musculoskeletal Head/Neck/Chest: normocephalic and head atraumatic Neurologic PERRL, EOMI, accommodation nl, no face palsy, no dysarthria CN's II-XI intact bilaterally Psychiatric A+Ox3, euthymic affect Discharge Data Allergies Allergy/AdvReac Type Severity Reaction Status Date / Time codeine AdvReac Intermediate NAUSEA Verified 12/07/19 00:24 Consultations 12/07/19 00:42 ED Decision to Admit Stat 12/07/19 04:48 Consult Case Management - Discharge Planning Routine 12/07/19 08:00 Consult Nephrology Routine Ordered Studies 12/07/19 04:48 US effusion-chest/mediastinum Routine Hospital Course (1) Shortness of breath: Acute and chronic respiratory failure chronic obstructive pulmonary disease CARLOS ALBERTO (obstructive sleep apnea) Left pleural effusion chronic diastolic (congestive) heart failure Endstage Renal Disease on Dialysis -this is a patient previously discharged from prior hospitalization for recurrent pleural effusions (bilateral) and during that stay had thoracentesis of left pleural effusion and was newly started on dialysis which appeared to have lowered patient's chronic oxygen requirements -patient returned to emergency room on 12/06/2019 because of acute shortness of breath and feeling chest pain. Tmax of 37.6 on arrival does not meet criteria for fever -12/06/2019 chest X ray: Atherosclerosis of the aortic arch. Cardiac silhouette enlarged. Significant interval decrease in bibasilar opacities though there is persistent left greater than right opacity. Suspected underlying left pleural effusion. Pulmonary vascular prominence and interstitial prominence has also slightly decreased. No pneumothorax. Osseous structures normal -12/07/2019: Left pleural effusion with an estimated volume of 340 cc -patient was empirically started on ceftriaxone and doxycycline in case of bronchitis versus pneumonia, but current work up does not suggest infectious process at this time, was continued respiratory antibiotics just in case given Leukocytosis on admission of 13,000. The solumedrol by ED provider will also contribute to leukocytosis -the left side pleural effusion is too small amount for thoracentesis -have discussed with nephrology to continue dialysis on Wednesday/Wednesday/Wednesday schedule to treat for potential volume overload as cause for shortness of breath as evidence by some return of left pleural effusion -in regards to initial complaint of chest pain with shortness of breath at home, troponins are negative -CPAP with sleep while inpatient -it does not appear that patient is in COPD exacerbation; no further respiratory steroids needed. Patient uses tobacco. -patient had completed dialysis on 12/08/2019 and breathing comfortably on room air Discharge to home (Patient should continue scheduled dialysis sessions every Wednesday/Wednesday/Wednesday. 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 -Continue home medication of torsemide, Toprol-XL, and amlodipine. Depression -Continue sertraline. 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 current use of insulin with Hyperglycemia Total Time Total Time Spent Total Time Spent (In Minutes): 40 minutes Total Time Includes: Examination of the Patient, Discharge Planning, Medication Reconciliation and Communication With Other Providers Discharge Plan Discharge Items Patient Disposition: Home - Self-Care Reason For Visit: SOB, CHEST PAIN 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 Patient should follow up with appointments 12/15/2019 1:00 PM Provider Aden Colon MD Department Family [facility] [place] 12/19/2019 1:40 PM Provider Gilmar Kolb MD Department Nephrology, [facility] 01/02/2020 9:00 AM Provider Aden Colon MD Department [facility] [place] 01/08/2020 11:20 AM Provider Gilmar Kolb MD Department Nephrology, [facility] 06/10/2020 9:30 AM Provider Luis Santos DO Department Cardiology, [facility] Pending Studies at Discharge: No Stand-Alone Forms: My [facility], Smoking Cessation Medications and DC Order Prescriptions: Continued ferrous sulfate [Feosol] 325 mg (65 mg iron) tablet 325 mg PO BID RF: 0 levetiracetam 500 mg Tablet 500 mg PO BID RF: 0 acetaminophen 650 mg Tablet Extended Release 650 mg PO Q6H PRN (Reason: pain/fever) RF: 0 amlodipine 10 mg tablet 5 mg PO DAILY RF: 0 lovastatin 40 mg Tablet 80 mg PO HS RF: 0 Victoza 2-Fernando 0.6 mg/0.1 mL (18 mg/3 mL) Pen Injector 1.2 mg SUBCUT DAILY RF: 0 cholecalciferol (vitamin D3) 2,000 unit Tablet 2,000 units PO DAILY RF: 0 metoprolol succinate 50 mg tablet extended release 24 hr 50 mg PO DAILY RF: 0 sertraline 25 mg tablet 25 mg PO DAILY RF: 0 glipizide 5 mg tablet 5 mg PO BID Qty: 60 RF: 1 torsemide 20 mg tablet 80 mg PO DAILY RF: 0 Spiriva Respimat 2.5 mcg/actuation Mist 2 puff INHALATION DAILY RF: 0 Discharge Orders: Discharge Order (Routine); Ordered 12/08/19 Ordered By: Elliot Marlow Admission Data Admit Date/Time: 12/07/19 01:46 Attending Provider: Elliot Marlow Admit Provider: Rohan Salazar Primary Care Provider: Aden Colon Other Providers: Rohan Salazar ; Thais Calhoun ; Eric Ayala ; ed,Charissa Leonardo ; Neeta Abbott ; Gilmar Kolb
[2019-12-08 15:11] VITALS: PULSE 90
--- NOTE | 2019-12-08 18:32 | Dialysis Progress Note ---
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; continue 02NC and torsemide Subjective pt seen and evaluated on HD this am at about 10; no sob, cough/wheeze better, no uncontrolled pain, edema ok Review of Systems Review of Systems: All systems reviewed & are unremarkable except as noted in HPI & below Physical Exam Constitutional: well developed, well nourished, + obese and cooperative lying on his back on RA nad Eyes: EOM intact bilaterally ENMT: Ears: no external ear abnormality Nose: no external nose abnormality Mouth: + dry oral mucous membranes Neck: no nuchal rigidity Respiratory: normal respiratory effort Auscultation: + diminished lung sounds Cardiovascular: Rate/Rhythm: regular rate and regular rhythm (HS distant) Extremities: + edema (trace) and + AV fistula (+t/b) Gastrointestinal (Abdomen): Inspection/Auscultation: normal bowel sounds Percussion/Palpation: abdomen soft; abdomen nontender Musculoskeletal: Extremities: strength 5/5 throughout Skin: no rashes, warm and dry Psychiatric: Orientation: alert, oriented to person and oriented to place Speech: normal rate/rhythm/volume of speech Affect: euthymic affect Results & Data Vital Signs (Past 12 Hours) Vital Signs Temp Pulse Pulse Pulse Pulse Pulse Resp 12/08/19 15:10 37.0 C 90 90 84 96 H 20 12/08/19 13:55 37.0 C 84 12/08/19 12:50 84 12/08/19 12:40 86 12/08/19 12:20 87 12/08/19 12:00 87 12/08/19 11:40 90 12/08/19 11:20 81 12/08/19 11:00 87 12/08/19 10:40 86 12/08/19 10:20 78 12/08/19 10:00 90 12/08/19 09:40 95 H 12/08/19 09:20 88 12/08/19 09:00 89 12/08/19 08:47 36.8 C 96 H 96 H 12/08/19 08:00 87 12/08/19 07:00 36.9 C 90 20 BP BP Pulse Ox 12/08/19 15:10 125/65 93 12/08/19 13:55 125/65 12/08/19 12:50 125/65 12/08/19 12:40 144/64 H 12/08/19 12:20 130/49 L 12/08/19 12:00 116/42 L 12/08/19 11:40 125/62 12/08/19 11:20 124/62 12/08/19 11:00 124/59 L 12/08/19 10:40 120/55 L 12/08/19 10:20 130/71 12/08/19 10:00 129/66 12/08/19 09:40 131/63 12/08/19 09:20 134/65 12/08/19 09:00 133/65 12/08/19 08:47 119/53 L 12/08/19 08:00 12/08/19 07:00 127/57 L 93 Laboratory Results 12/08/19 12:50 12/08/19 12:50
== END 2019-12-08 15:30 | disposition home health service (06) ==
LOC: ED 23:28 → 2N 12-07 01:46 → INTOOBSV 12-07 01:46 → 2N 12-07 04:31
DX: Z88.5 Allergy status to narcotic agent; E83.42 Hypomagnesemia; Z99.2 Dependence on renal dialysis; I50.32 Chronic diastolic (congestive) heart failure; Z86.73 Personal history of transient ischemic attack (TIA), and cerebral infarction without residual deficits; G47.33 Obstructive sleep apnea (adult) (pediatric); E11.22 Type 2 diabetes mellitus with diabetic chronic kidney disease; I13.2 Hypertensive heart and chronic kidney disease with heart failure and with stage 5 chronic kidney disease, or end stage renal disease; J44.9 Chronic obstructive pulmonary disease, unspecified; I48.91 Unspecified atrial fibrillation; J95.822 Acute and chronic postprocedural respiratory failure; N18.6 End stage renal disease; Z99.81 Dependence on supplemental oxygen; E11.65 Type 2 diabetes mellitus with hyperglycemia; Z82.49 Family history of ischemic heart disease and other diseases of the circulatory system; Z98.1 Arthrodesis status; Z79.899 Other long term (current) drug therapy; F32.9 Major depressive disorder, single episode, unspecified

== ENCOUNTER 2020-01-31 16:10 | Inpatient (IN) ==
[2020-01-31] MEDS ORDERED: ACETAMINOPHEN 500 MG TAB PO STA (16:18)
[2020-01-31] MEDS ORDERED: ERTAPENEM SODIUM 10 ML IV STA (16:18)
[2020-01-31] MEDS ORDERED: ALBUT/IPRATROP 3MG/0.5MG NEB 3 ML VIAL NEB STA (16:18)
--- NOTE | 2020-01-31 16:31 | Emergency Department Note ---
Entered by Janett Darling acting as a scribe for History of Present Illness General Chief complaint: Fall Stated complaint: FALL Time Seen by Provider: 01/31/20 16:12 Source: patient and EMS History of Present Illness Onset (ago): day(s) 2 Location: head (general) Pain Consistency: + other (worsening ) Quality: + other (weakness) Associated symptoms: + fever/chills (positive chills; negative fever), + shortness of breath and + other (negative diarrhea); no nausea/vomiting The patient is a 79 year old male who presents to the Emergency Room with complaints of worsening weakness that began 2 days prior to arrival. Per EMS, the patient was feeling weak at dialysis today and upon arrival at home he lowered himself to the ground as he felt very weak. The patient states that today he felt increasingly short of breath above and beyond his baseline. He states that he typically wears 3L of oxygen at night, but denies requiring any oxygen during the day. The patient states that he felt chills, but denies feeling feverish. The patient denies nausea, vomiting, and diarrhea. He denies being around any people with similar symptoms and he denies recent travel. Home Medications Home Medications Medication Instructions Recorded Confirmed Type Victoza 2-Fernando 1.2 mg SUBCUT DAILY 02/09/19 01/31/20 History cholecalciferol (vitamin D3) 2,000 units PO DAILY 02/09/19 01/31/20 History lovastatin 80 mg PO HS 02/09/19 01/31/20 History levetiracetam 500 mg PO BID 05/10/19 01/31/20 History metoprolol succinate 50 mg PO DAILY 11/21/19 01/31/20 History sertraline 25 mg PO DAILY 11/21/19 01/31/20 History glipizide 5 mg PO BID #60 tab 11/28/19 01/31/20 Rx albuterol sulfate 90 mcg/actuation 1 puffs INH QID PRN 01/17/20 01/31/20 History aerosol inhaler magnesium oxide 400 mg PO DAILY 01/17/20 01/31/20 History tiotropium bromide [Spiriva 2 puff INHALATION DAILY 01/31/20 01/31/20 History Respimat] Allergies Allergy/AdvReac Type Severity Reaction Status Date / Time codeine AdvReac Intermediate NAUSEA Verified 01/31/20 17:09 Past Med/Surg History Medical History AAA (abdominal aortic aneurysm) Asthma with COPD Atrial fibrillation (Chronic) dx 2016 - no longer taking warfarin - recent fall w/ brain bleed 03/2019 Chronic diastolic heart failure Chronic systolic heart failure (Chronic) CKD (chronic kidney disease), stage IV Daytime sleepiness Diabetes mellitus, type 2 (Chronic) Dyslipidemia (Chronic) ESRD (end stage renal disease) History of CVA (cerebrovascular accident) (Chronic) 2016 - dx w/ a.fib - [facility] - no deficits History of seizure (Resolved) history obtained from dtr - unsure of last seizure 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 - fall - [place] ER visit 03/30/2019 --> [place] HTN (hypertension), benign (Chronic) Nocturnal hypoxemia CARLOS ALBERTO (obstructive sleep apnea) (Chronic) does not tolerate CPAP Severe chronic obstructive pulmonary disease Tobacco use disorder (Chronic) Surgical History History of back surgery (Resolved) History of cataract surgery (Chronic) History of colonoscopy (Chronic) History of esophagogastroduodenoscopy (EGD) (Chronic) History of lumbar spinal fusion (Chronic) x 2 History of tooth extraction (Chronic) Family History Mother Cancer Brother Diabetes Heart disease Social History Preferred Language: Turkish Communication Ability: Effective Network Support Administrator Required: No Beliefs That Will Affect Care: None marital status: Current Living Situation: Family Other Information That Helps Us Care for You: No Feels Safe at Home: Yes Safety Concerns: Feels Safe At This Time Smoking Status: Unknown if ever smoked Hx Alcohol Use: No Hx Substance Use: No Review of Systems See HPI for pertinent positives & negatives. and A total of 10 systems reviewed and were otherwise negative Physical Exam Vital Signs Vital Signs - 24 hr 01/31/20 16:19 01/31/20 16:37 01/31/20 16:40 Temperature 37.8 C H Temperature Source Oral Pulse Rate 107 H Pulse Rate [Right Radial] 99 H Pulse Rhythm Irregular Respiratory Rate 25 H 18 Respiratory Effort / Characteristics Non-Labored SOB on Exertion Non-Labored Spontaneous Respiratory Depth Normal Respiratory Pattern Blood Pressure 138/63 Blood Pressure [Left Arm] Blood Pressure Mean 88 Blood Pressure Mean [Left Arm] Pulse Oximetry 85 L 96 Oxygen Delivery Method Room Air Nasal Cannula Room Air Oxygen Flow Rate 3 Fraction of Inspired Oxygen 85 Sepsis Recent Fever Within 48 Hours Yes Sepsis Action Taken by Nursing Physician Notified Oxygen Flow Rate - Titration 3 Pulse Oximetry Post Tiitration 90 01/31/20 17:45 01/31/20 18:28 01/31/20 19:00 Temperature 37.7 C H Temperature Source Oral Pulse Rate 82 Pulse Rate [Right Radial] 99 H 90 Pulse Rhythm Respiratory Rate 21 20 15 Respiratory Effort / Characteristics Non-Labored Respiratory Depth Normal Normal Respiratory Pattern Regular Blood Pressure 112/66 Blood Pressure [Left Arm] 90/59 L 111/57 L Blood Pressure Mean 80 Blood Pressure Mean [Left Arm] 69 75 Pulse Oximetry 91 90 Oxygen Delivery Method Nasal Cannula Nasal Cannula Oxygen Flow Rate 3 3 Fraction of Inspired Oxygen Sepsis Recent Fever Within 48 Hours Sepsis Action Taken by Nursing Oxygen Flow Rate - Titration Pulse Oximetry Post Tiitration 01/31/20 19:01 01/31/20 19:10 01/31/20 19:20 Temperature Temperature Source Pulse Rate 82 92 H 86 Pulse Rate [Right Radial] Pulse Rhythm Respiratory Rate 15 13 20 Respiratory Effort / Characteristics Respiratory Depth Respiratory Pattern Blood Pressure Blood Pressure [Left Arm] Blood Pressure Mean Blood Pressure Mean [Left Arm] Pulse Oximetry Oxygen Delivery Method Oxygen Flow Rate Fraction of Inspired Oxygen Sepsis Recent Fever Within 48 Hours Sepsis Action Taken by Nursing Oxygen Flow Rate - Titration Pulse Oximetry Post Tiitration 01/31/20 19:30 01/31/20 19:40 01/31/20 19:50 Temperature Temperature Source Pulse Rate 91 H 90 92 H Pulse Rate [Right Radial] Pulse Rhythm Respiratory Rate 14 15 16 Respiratory Effort / Characteristics Respiratory Depth Respiratory Pattern Blood Pressure Blood Pressure [Left Arm] Blood Pressure Mean Blood Pressure Mean [Left Arm] Pulse Oximetry Oxygen Delivery Method Oxygen Flow Rate Fraction of Inspired Oxygen Sepsis Recent Fever Within 48 Hours Sepsis Action Taken by Nursing Oxygen Flow Rate - Titration Pulse Oximetry Post Tiitration 01/31/20 20:00 01/31/20 20:01 Temperature Temperature Source Pulse Rate 93 H 93 H Pulse Rate [Right Radial] Pulse Rhythm Respiratory Rate 15 18 Respiratory Effort / Characteristics Respiratory Depth Respiratory Pattern Blood Pressure 112/61 Blood Pressure [Left Arm] Blood Pressure Mean 80 Blood Pressure Mean [Left Arm] Pulse Oximetry Oxygen Delivery Method Oxygen Flow Rate Fraction of Inspired Oxygen Sepsis Recent Fever Within 48 Hours Sepsis Action Taken by Nursing Oxygen Flow Rate - Titration Pulse Oximetry Post Tiitration GENERAL: Patient is in no acute distress. HEENT: No acute trauma, normocephalic atraumatic, mucous membranes moist, no nasal congestion, no scleral icterus. NECK: No stridor, no adenopathy, no meningismus, trachea is midline. LUNGS: Markedly diminished breath sounds. No wheezing or rhonchi. No respiratory distress. HEART: Irregularly rhythm. Mildly tachycardic. 2/6 systolic murmur. ABDOMEN: Soft, nontender, bowel sounds positive, no hernias, no peritonitis. EXTREMITIES: Moderate bilateral pedal edema. No cyanosis, full range of motion of all the joints without pain or difficulty, no signs for acute trauma. NEUROLOGIC: Oriented x 3, no acute motor or sensory deficits, no focal weakness. SKIN: No rash, no jaundice, no diaphoresis. Course Course 1613: Past medical records reviewed. The patient was evaluated in room B2. A complete history and physical exam was performed. 1736: I discussed the case with Dr. Crouch Hospitalist who accepts the patient for further evaluation. 1745: I checked on and updated the patient and his family. Administered Medications Glipizide (Glucotrol) 5 mg PO BIDM [facility] Stop: 03/01/20 21:38 Last Admin: 01/31/20 23:25 Dose: 5 mg Documented by: [id number] Cefepime HCl 1,000 mg/ Syringe 11.3 mls @ 5.5 mls/min IV Q12H [facility]; Protocol Stop: 02/07/20 18:59 Last Admin: 01/31/20 19:05 Dose: 5.5 mls/min Documented by: [id number] Doxycycline Hyclate 100 mg/ (Dextrose) 110 mls @ 50 mls/hr IV Q12H [facility] Stop: 02/07/20 18:59 Last Infusion: 01/31/20 21:19 Dose: 0 mls/hr Documented by: [id number] Admin: 01/31/20 19:05 Dose: 50 mls/hr Documented by: [id number] Levetiracetam (Keppra) 500 mg PO BID [facility] Stop: 03/01/20 21:38 Last Admin: 01/31/20 23:24 Dose: 500 mg Documented by: [id number] Lovastatin (Mevacor) 80 mg PO HS [facility] Stop: 03/01/20 21:38 Last Admin: 01/31/20 23:25 Dose: 80 mg Documented by: [id number] Discontinued Medications Acetaminophen (Tylenol) 1,000 mg PO NOW STA Stop: 01/31/20 16:19 Last Admin: 01/31/20 16:47 Dose: 1,000 mg Documented by: [id number] Albuterol (Duoneb) 3 ml NEB NOW STA Stop: 01/31/20 16:19 Last Admin: 01/31/20 16:37 Dose: 3 ml Documented by: [id number] Ertapenem (Invanz) 10 mls @ 2 mls/min IV NOW STA Stop: 01/31/20 16:22 Last Admin: 01/31/20 17:42 Dose: 2 mls/min Documented by: [id number] Critical Care Time Critical Care Time: Yes Total Critical Care Time: 34 I have personally spent 34 minutes of critical care time in the direct management of this patient. This includes bedside care, interpretation of diagnostic studies, and testing, discussion with consultants, patient, and family members, and other required patient management activities. This 34 minutes is in excess of all separately billable procedures. Medical Decision Making Differential Diagnosis Differential diagnoses include influenza or flu-like illness, pneumonia, bronchitis, CHF, sepsis, bacteremia, UTI, cellulitis, liver failure, [place], electrolyte abnormality, and others were considered. Medical Records Attestation: I reviewed the patient's medical records. Home Medications Current Medication List: was personally reviewed by me Laboratory Data Attestation: I reviewed the patient's lab results. Result diagrams: 01/31/20 16:41 01/31/20 16:41 Lab Results 01/31/20 01/31/20 01/31/20 Range/Units 16:41 16:41 16:41 WBC 5.75 (4.8-10.8) K/uL RBC 4.08 L (4.7-6.1) M/uL Hgb 11.5 L (14.0-18.0) g/dL Hct 37.4 L (42-52) % MCV 91.7 (80-100) fL MCH 28.2 (25-34) pg MCHC 30.7 L (32-36) g/dL RDW Std Deviation 55.3 H (36.4-46.3) fL RDW Coeff of Kiah 16.5 H (11.5-14.5) % Plt Count 243 (130-400) K/uL MPV 9.3 (7.4-10.4) fL Immature Gran % (Auto) 0.2 % Neut % (Auto) 86.2 % Lymph % (Auto) 7.5 % [place] % (Auto) 5.6 % Eos % (Auto) 0.2 % Baso % (Auto) 0.3 % Immature Gran # (Auto) 0.01 (0.00-0.02) K/uL Neut # (Auto) 4.96 (1.4-6.5) K/uL Lymph # (Auto) 0.43 L (1.2-3.4) K/uL [place] # (Auto) 0.32 (0.11-0.59) K/uL Eos # (Auto) 0.01 (0-0.5) K/uL Baso # (Auto) 0.02 (0-0.2) K/uL PT 11.3 (9.0-12.0) Seconds INR 1.1 (0.9-1.1) APTT 27.8 (21.0-31.0) Seconds PTT Ratio 1.0 VBG pH (7.36-7.41) VBG pCO2 (38-50) mmHg VBG pO2 mmHg VBG HCO3 mmol/L VBG O2 Saturation % VBG Base Excess mEq/L Barometric Pressure mm/Hg Sodium (136-145) mmol/L Potassium (3.5-5.1) mmol/L Chloride (98-107) mmol/L Carbon Dioxide (21-32) mmol/L Anion Gap (3-11) BUN (7-18) mg/dl Creatinine (0.6-1.4) mg/dl Est Cr Clr Drug Dosing ml/min Est GFR ( Amer) Est GFR (Non-Af Amer) BUN/Creatinine Ratio (10-20) Glucose (70-99) mg/dl Lactate (0.4-2.0) mmol/L Calcium (8.5-10.1) mg/dl Magnesium (1.8-2.4) mg/dl Total Bilirubin (0.2-1) mg/dl AST (15-37) U/L ALT (12-78) U/L Alkaline Phosphatase (45-117) U/L Ammonia (11-32) umol/L Troponin I (0-0.045) ng/ml Total Protein (6.4-8.2) gm/dl Albumin (3.4-5.0) gm/dl Globulin (2.5-4.0) gm/dl Albumin/Globulin Ratio (0.9-2) Procalcitonin 1.48 H (0-0.5) ng/ml Influenza Type A (PCR) (Neg) Influenza Type B (PCR) (Neg) 01/31/20 01/31/20 01/31/20 Range/Units 16:41 16:41 16:49 WBC (4.8-10.8) K/uL RBC (4.7-6.1) M/uL Hgb (14.0-18.0) g/dL Hct (42-52) % MCV (80-100) fL MCH (25-34) pg MCHC (32-36) g/dL RDW Std Deviation (36.4-46.3) fL RDW Coeff of Kiah (11.5-14.5) % Plt Count (130-400) K/uL MPV (7.4-10.4) fL Immature Gran % (Auto) % Neut % (Auto) % Lymph % (Auto) % [place] % (Auto) % Eos % (Auto) % Baso % (Auto) % Immature Gran # (Auto) (0.00-0.02) K/uL Neut # (Auto) (1.4-6.5) K/uL Lymph # (Auto) (1.2-3.4) K/uL [place] # (Auto) (0.11-0.59) K/uL Eos # (Auto) (0-0.5) K/uL Baso # (Auto) (0-0.2) K/uL PT (9.0-12.0) Seconds INR (0.9-1.1) APTT (21.0-31.0) Seconds PTT Ratio VBG pH (7.36-7.41) VBG pCO2 (38-50) mmHg VBG pO2 mmHg VBG HCO3 mmol/L VBG O2 Saturation % VBG Base Excess mEq/L Barometric Pressure mm/Hg Sodium 136 (136-145) mmol/L Potassium 4.0 (3.5-5.1) mmol/L Chloride 100 (98-107) mmol/L Carbon Dioxide 33 H (21-32) mmol/L Anion Gap 3.0 (3-11) BUN 15 (7-18) mg/dl Creatinine 2.10 H (0.6-1.4) mg/dl Est Cr Clr Drug Dosing 35.8 ml/min Est GFR ( Amer) 33.7 Est GFR (Non-Af Amer) 29.1 BUN/Creatinine Ratio 7.0 L (10-20) Glucose 184 H (70-99) mg/dl Lactate 1.4 (0.4-2.0) mmol/L Calcium 8.9 (8.5-10.1) mg/dl Magnesium 2.1 (1.8-2.4) mg/dl Total Bilirubin 0.4 (0.2-1) mg/dl AST 20 (15-37) U/L ALT 26 (12-78) U/L Alkaline Phosphatase 74 (45-117) U/L Ammonia (11-32) umol/L Troponin I < 0.015 (0-0.045) ng/ml Total Protein 7.4 (6.4-8.2) gm/dl Albumin 2.9 L (3.4-5.0) gm/dl Globulin 4.5 H (2.5-4.0) gm/dl Albumin/Globulin Ratio 0.6 L (0.9-2) Procalcitonin (0-0.5) ng/ml Influenza Type A (PCR) Neg for Influ A (Neg) Influenza Type B (PCR) Neg for Influ B (Neg) 01/31/20 01/31/20 Range/Units 17:35 17:36 WBC (4.8-10.8) K/uL RBC (4.7-6.1) M/uL Hgb (14.0-18.0) g/dL Hct (42-52) % MCV (80-100) fL MCH (25-34) pg MCHC (32-36) g/dL RDW Std Deviation (36.4-46.3) fL RDW Coeff of Kiah (11.5-14.5) % Plt Count (130-400) K/uL MPV (7.4-10.4) fL Immature Gran % (Auto) % Neut % (Auto) % Lymph % (Auto) % [place] % (Auto) % Eos % (Auto) % Baso % (Auto) % Immature Gran # (Auto) (0.00-0.02) K/uL Neut # (Auto) (1.4-6.5) K/uL Lymph # (Auto) (1.2-3.4) K/uL [place] # (Auto) (0.11-0.59) K/uL Eos # (Auto) (0-0.5) K/uL Baso # (Auto) (0-0.2) K/uL PT (9.0-12.0) Seconds INR (0.9-1.1) APTT (21.0-31.0) Seconds PTT Ratio VBG pH 7.39 (7.36-7.41) VBG pCO2 54 H (38-50) mmHg VBG pO2 54 mmHg VBG HCO3 32 mmol/L VBG O2 Saturation 87.3 % VBG Base Excess 5.8 mEq/L Barometric Pressure 728.7 mm/Hg Sodium (136-145) mmol/L Potassium (3.5-5.1) mmol/L Chloride (98-107) mmol/L Carbon Dioxide (21-32) mmol/L Anion Gap (3-11) BUN (7-18) mg/dl Creatinine (0.6-1.4) mg/dl Est Cr Clr Drug Dosing ml/min Est GFR ( Amer) Est GFR (Non-Af Amer) BUN/Creatinine Ratio (10-20) Glucose (70-99) mg/dl Lactate (0.4-2.0) mmol/L Calcium (8.5-10.1) mg/dl Magnesium (1.8-2.4) mg/dl Total Bilirubin (0.2-1) mg/dl AST (15-37) U/L ALT (12-78) U/L Alkaline Phosphatase (45-117) U/L Ammonia 40.0 H (11-32) umol/L Troponin I (0-0.045) ng/ml Total Protein (6.4-8.2) gm/dl Albumin (3.4-5.0) gm/dl Globulin (2.5-4.0) gm/dl Albumin/Globulin Ratio (0.9-2) Procalcitonin (0-0.5) ng/ml Influenza Type A (PCR) (Neg) Influenza Type B (PCR) (Neg) Imaging Data Radiologist's Impression: Radiology results as stated below per my review and the radiologist's interpretation: XR chest 1V portable HISTORY: 79 years-old Male SEPSIS acute sepsis with fever COMPARISON: Chest radiograph 12/06/2019 TECHNIQUE: Portable AP view of the chest FINDINGS: Cardiac silhouette is enlarged, unchanged. Pulmonary vascular congestion with mild interstitial coarsening. Left greater than right pleural effusions with bibasilar opacities. No pneumothorax. Subcentimeter metallic density focus projecting over the right mid chest is unchanged. Vascular calcifications of the left axilla. Degenerative changes of the shoulders and spine. IMPRESSION: 1. Cardiomegaly with pulmonary vascular congestion and probable pulmonary edema. 2. Left greater than right pleural effusions and bibasilar opacities are suggestive of atelectasis versus pneumonia. ACT 112: Negative or not required by law. The above report was generated using voice recognition software. It may contain grammatical, syntax or spelling errors. Electronically signed by: Saluo Interiano M.D. 01/31/2020 4:37 PM ECG Data Attestation: I personally reviewed and interpreted this ECG as follows: Indication: + weakness Rate (beats per minute): 104 Rhythm: + atrial fibrillation ECG Intervals/blocks: + Normal QT-c (436) ECG ST segments: no ST elevation ECG Findings: no PVCs Blood Pressure Blood Pressure Findings: Elevated blood pressure Blood Pressure Disposition: further management by hospitalist [facility] Narrative There is no leukocytosis. The patient is mildly anemic but this is relatively baseline looking back at previous testing. No coagulopathy. VBG does not show any significant acidosis or CO2 retention. Renal panel testing shows a higher creatinine consistent with his dialysis need. No significant electrolyte abnormality requiring correction. Ammonia level was slightly high at 40. There was no liver enzyme elevation. Lactic acid level was not elevated making severe sepsis less likely. Procalcitonin level was slightly elevated. Influenza testing was negative. Chest film does show some CHF with some bilateral effusions, worse on the left. A consolidation on the left could not be excluded. Urinalysis result is pending, blood cultures are pending. The patient was aggressively managed. He received IV ertapenem, a DuoNeb, oral Tylenol. The patient presents with weakness and a low-grade fever. He may have an early pneumonia, he may have early sepsis. I do think a hospital stay is warranted. I spoke to the patient, I talked with case management. I talked to the patient's family. The on-call hospitalist has been consulted. Continuous Cardiac Monitoring: An order was placed for continuous cardiac monitoring. The monitor shows a rate of 107 with atrial fibrillation. Impression & Plan Hypoxia, Shortness of breath, Weakness, Fever Discharge Plan Visit Data *Final* Discharge Date/Time: 01/31/20 21:17 Chief Complaint: Fall Stated Complaint: FALL ED Provider: Aman Goodman Discharge Problem: Hypoxia, Shortness of breath, Weakness, Fever Patient Disposition: Admitted As Inpatient Discharge Instructions Interventions: ED Discharge Assessment Last Done: 01/31/20 21:17 Discharge Problem: Fever Qualifiers: Fever type: unspecified Qualified Code(s): R50.9 - Fever, unspecified The scribe's documentation has been prepared under my direction and personally reviewed by me in its entirety. I confirm that the note above accurately reflects all work, treatment, procedures, and medical decision making performed by me.
--- NOTE | 2020-01-31 16:38 | XRay Report ---
XR chest 1V portable HISTORY: 79 years-old Male SEPSIS acute sepsis with fever COMPARISON: Chest radiograph 12/06/2019 TECHNIQUE: Portable AP view of the chest FINDINGS: Cardiac silhouette is enlarged, unchanged. Pulmonary vascular congestion with mild interstitial coars ening. Left greater than right pleural effusions with bibasilar opacities. No pneumothorax. Subcentim eter metallic density focus projecting over the right mid chest is unchanged. Vascular calcifications of the left axilla. Degenerative changes of the shoulders and spine. IMPRESSION: 1. Cardiomegaly with pulmonary vascular congestion and probable pulmonary edema. 2. Left greater than right pleural effusions and bibasilar opacities are suggestive of atelectasis ve rsus pneumonia. ACT 112: Negative or not required by law. The above report was generated using voice recognition software. It may contain grammatical, syntax o r spelling errors. Electronically signed by: Saulo Interiano M.D. 01/31/2020 4:37 PM
[2020-01-31 16:53] LABS: Basophils # (auto) 0.02 K/uL (0-0.2); Basophils % (auto) 0.3 %; Eosinophils # (auto) 0.01 K/uL (0-0.5); Eosinophils % (auto) 0.2 %; Hematocrit (blood only) 37.4 % (42-52); Hemoglobin 11.5 g/dL (14.0-18.0); Immature Granulocytes # (auto) 0.01 K/uL (0.00-0.02); Immature Granulocytes % (auto) 0.2 %; Lymphocytes # (auto) 0.43 K/uL (1.2-3.4); Lymphocytes % (auto) 7.5 %; Mean Corpuscular Hemoglobin 28.2 pg (25-34); Mean Corpuscular Hgb Conc 30.7 g/dL (32-36); Mean Corpuscular Volume 91.7 fL (80-100); Mean Platelet Volume 9.3 fL (7.4-10.4); Monocytes # (auto) 0.32 K/uL (0.11-0.59); Monocytes % (auto) 5.6 %; Neutrophils # (auto) 4.96 K/uL (1.4-6.5); Neutrophils % (auto) 86.2 %; Platelet Count 243 K/uL (130-400); RDW Coefficient of Variation 16.5 % (11.5-14.5); RDW Standard Deviation 55.3 fL (36.4-46.3); Red Blood Count 4.08 M/uL (4.7-6.1); White Blood Count 5.75 K/uL (4.8-10.8)
[2020-01-31 17:10] LABS: INR 1.1 (0.9-1.1); Partial Thromboplastin Time 27.8 Seconds (21.0-31.0); Prothrombin Time 11.3 Seconds (9.0-12.0)
[2020-01-31 17:22] LABS: Alanine Aminotransferase 26 U/L (12-78); Albumin Globulin Ratio 0.6 (0.9-2); Albumin Level 2.9 gm/dl (3.4-5.0); Alkaline Phosphatase 74 U/L (45-117); Aspartate Aminotransferase 20 U/L (15-37); Bilirubin,Total 0.4 mg/dl (0.2-1); Blood Urea Nitrogen 15 mg/dl (7-18); Calcium 8.9 mg/dl (8.5-10.1); Carbon Dioxide 33 mmol/L (21-32); Chloride 100 mmol/L (98-107); Creatinine Clr Calc Pharmacy 35.8 ml/min; Est GFR (African American) 33.7; Est GFR (Non-African American) 29.1; Globulin 4.5 gm/dl (2.5-4.0); Glucose 184 mg/dl (70-99); Magnesium 2.1 mg/dl (1.8-2.4); Sodium 136 mmol/L (136-145); Total Protein 7.4 gm/dl (6.4-8.2); Troponin I < 0.015 ng/ml (0-0.045)
[2020-01-31 17:37] LABS: Influenza A virus by PCR Neg for Influ A (Neg); Influenza B virus by PCR Neg for Influ B (Neg)
[2020-01-31 17:53] LABS: Base Excess VBG 5.8 mEq/L; Oxygen Saturation VBG 87.3 %; pH VBG 7.39 (7.36-7.41)
--- NOTE | 2020-01-31 18:37 | History & Physical Report ---
Date of Service January 31, 2020 Assessment & Plan (1) Pneumonia: Has been complaining of cough for the last few days and noted to be short of breath today Chest x-ray did show bibasilar infiltration with pleural effusion more on the left than the right side ,CAP Blood cultures were taken and he was started with intravenous cefepime and doxycycline Has been feeling a little bit better in the emergency room Present on Admission?: Yes (2) Hypoxia: Secondary to pneumonia/infiltration Presented with shortness of breath as well Requiring more oxygen than usual (3) Pleural effusion: Secondary to chronic systolic heart failure Effusion seems to be little worse compared with prior We will continue hemodialysis (4) COPD (chronic obstructive pulmonary disease): Has been on home oxygen at nighttime No exacerbation at this time We will continue his usual medications (5) ESRD (end stage renal disease): Consult nephrology to continue hemodialysis (6) Chronic diastolic heart failure: Chest x-ray did show congestive heart failure with pleural effusion Will not give any Lasix Continue hemodialysis (7) Diabetes mellitus, type 2: Continue current medications We will put him on sliding scale insulin coverage (8) Dyslipidemia: Continue current meds (9) CARLOS ALBERTO (obstructive sleep apnea): Can use his own machine (10) Atrial fibrillation: Not on any anticoagulation likely secondary to history of sup dural hematoma and fall risk (11) History of subdural hemorrhage: No acute symptom DVT prophylax Subcu heparin CODE STATUS DNR History of Present Illness Chief Complaint: Weakness with fall. Cough with more shortness of breath Primary Care Provider: Aden Colon MD He is a 79-year-old male with significant past medical history of ESRD on hemodialysis, COPD on home oxygen at night, type 2 diabetes on insulin, depression, atrial fibrillation not on any anticoagulation, CARLOS ALBERTO, hypertension and hyperlipidemia apparently has been complaining of profound weakness with a fall following dialysis today. He has been complaining of cough with productive sputum for the last few days and today he was noted to have more shortness of breath associated with it. Denies any significant injury from the fall and denies any significant pain in the emergency room. Denies any chest pain, any abdominal pain nausea and or vomiting, any problem with urine and bowel habit. Does not have any numbness and or tingling involving any of the extremities and no weakness in any side in particular. He was noted to be hypoxic emergency room and chest x-ray did show bibasilar infiltration associated with effusion right more than the left. He was admitted to medical telemetry unit for continued care. Allergies Allergy/AdvReac Type Severity Reaction Status Date / Time codeine AdvReac Intermediate NAUSEA Verified 01/31/20 17:09 Home Medications Home Medications Medication Instructions Recorded Confirmed Type Victoza 2-Fernando 1.2 mg SUBCUT DAILY 02/09/19 01/31/20 History cholecalciferol (vitamin D3) 2,000 units PO DAILY 02/09/19 01/31/20 History lovastatin 80 mg PO HS 02/09/19 01/31/20 History levetiracetam 500 mg PO BID 05/10/19 01/31/20 History metoprolol succinate 50 mg PO DAILY 11/21/19 01/31/20 History sertraline 25 mg PO DAILY 11/21/19 01/31/20 History glipizide 5 mg PO BID #60 tab 11/28/19 01/31/20 Rx albuterol sulfate 90 mcg/actuation 1 puffs INH QID PRN 01/17/20 01/31/20 History aerosol inhaler magnesium oxide 400 mg PO DAILY 01/17/20 01/31/20 History tiotropium bromide [Spiriva 2 puff INHALATION DAILY 01/31/20 01/31/20 History Respimat] Past Med/Surg History Medical History AAA (abdominal aortic aneurysm) Asthma with COPD Atrial fibrillation (Chronic) dx 2015 - no longer taking warfarin - recent fall w/ brain bleed 03/2019 Chronic diastolic heart failure Chronic systolic heart failure (Chronic) CKD (chronic kidney disease), stage IV Daytime sleepiness Diabetes mellitus, type 2 (Chronic) Dyslipidemia (Chronic) ESRD (end stage renal disease) History of CVA (cerebrovascular accident) (Chronic) 2016 - dx w/ a.fib - [facility] - no deficits History of seizure (Resolved) history obtained from dtr - unsure of last seizure 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 - fall [place] 03/30/2019 [place] [facility] [place]N (hypertension), benign (Chronic) Nocturnal hypoxemia CARLOS ALBERTO (obstructive sleep apnea) (Chronic) does not tolerate CPAP Severe chronic obstructive pulmonary disease Tobacco use disorder (Chronic) Surgical History History of back surgery (Resolved) History of cataract surgery (Chronic) History of colonoscopy (Chronic) History of esophagogastroduodenoscopy (EGD) (Chronic) History of lumbar spinal fusion (Chronic) x 2 History of tooth extraction (Chronic) Family History Mother Cancer Brother Diabetes Heart disease Social History Preferred Language: Tanzanian Communication Ability: Effective Bundle Cutter Required: No Beliefs That Will Affect Care: None marital status: Current Living Situation: Family Feels Safe at Home: Yes Smoking Status: Former smoker Tobacco Type: cigarettes ; Cigarettes Per Day: 6 ; Second Hand Exposure: No ; Hx Alcohol Use: No Hx Substance Use: No Review of Systems Review of Systems: All systems reviewed & are unremarkable except as noted in HPI & below Physical Exam Physical Exam: Lying in bed comfortably Constitutional: well developed, well nourished, + ill appearing and + obese; no acute distress Eyes: PERRL, conjunctivae normal, anicteric sclerae ENMT: external ear and nose normal, oropharynx normal Neck: trachea midline, no thyromegaly Respiratory: normal respiratory effort and + cough Auscultation: + diminished lung sounds and + crackles (Right base more than the left) Cardiovascular: Rate/Rhythm: + abnormal rate and + abnormal rhythm Heart Sounds: + murmur (2/6 ejection systolic murmur over precordium) Extremities: + edema (Bilateral leg edema 1-2+) Gastrointestinal (Abdomen): Inspection/Auscultation: abdomen normal to inspection and normal bowel sounds; abdomen not distended Percussion/Palpation: abdomen soft; abdomen nontender Musculoskeletal: No acute arthritis in any joints Neurologic: moves all extremities; no focal motor deficits Lymphatic: no cervical or axillary lymphadenopathy Results & Data Vital Signs (Past 12 Hours) Vital Signs Temp Pulse Pulse Resp BP BP Pulse Ox 01/31/20 17:45 37.7 C H 99 H 21 90/59 L 91 01/31/20 16:37 99 H 18 96 01/31/20 16:19 37.8 C H 107 H 25 H 138/63 85 L Laboratory Results Short CBC 01/31/20 Range/Units 16:41 WBC 5.75 (4.8-10.8) K/uL Hgb 11.5 L (14.0-18.0) g/dL Hct 37.4 L (42-52) % Plt Count 243 (130-400) K/uL BMP 01/31/20 16:41 Sodium 136 Potassium 4.0 Chloride 100 Carbon Dioxide 33 H BUN 15 Creatinine 2.10 H Glucose 184 H Calcium 8.9 Cardiac Enzymes 01/31/20 Range/Units 16:41 Troponin I < 0.015 (0-0.045) ng/ml Liver Function 01/31/20 Range/Units 16:41 Total Bilirubin 0.4 (0.2-1) mg/dl AST 20 (15-37) U/L ALT 26 (12-78) U/L Alkaline Phosphatase 74 (45-117) U/L Albumin 2.9 L (3.4-5.0) gm/dl Medications Administered Current Inpatient Medications Cefepime HCl 1,000 mg/ Syringe 11.3 mls @ 5.5 mls/min IV Q12H [facility]; Protocol Stop: 02/07/20 18:29 Doxycycline Hyclate 100 mg/ (Dextrose) 110 mls @ 50 mls/hr IV BID [facility] Stop: 02/07/20 20:59 (1) Atrial fibrillation Atrial fibrillation type: paroxysmal Qualified Code(s): I48.0 - Paroxysmal atrial fibrillation
[2020-01-31] MEDS: CEFEPIME 1,000 MG in SYRINGE 0 ML IV SCH (19:05)
[2020-01-31] MEDS: DOXYCYCLINE HYCLATE 100 MG in DEXTROSE 5% 100 ML IV SCH (19:05)
[2020-01-31] MEDS ORDERED: DOXYCYCLINE HYCLATE 100 MG in DEXTROSE 5% 100 ML IV SCH (21:00)
[2020-01-31] MEDS ORDERED: ALBUTEROL HFA 8 GM INHALER INH PRN (21:39)
[2020-01-31] MEDS: levETIRAcetam 500 MG TAB PO SCH (23:24)
[2020-01-31] MEDS: LOVASTATIN 20 MG TAB PO SCH (23:25)
[2020-01-31] MEDS: glipiZIDE 5 MG TAB PO SCH (23:25)
[2020-02-01] MEDS: VICTOZA~ORDER AWAITING ACTION SCH ×4 (01:20→23:56)
[2020-02-01] MEDS: DOXYCYCLINE HYCLATE 100 MG in DEXTROSE 5% 100 ML IV SCH ×3 (06:15→19:29)
[2020-02-01] MEDS: CEFEPIME 1,000 MG in SYRINGE 0 ML IV SCH ×2 (06:15→19:05)
[2020-02-01] MEDS: levETIRAcetam 500 MG TAB PO SCH ×2 (07:38→21:17)
[2020-02-01] MEDS: MAGNESIUM OXIDE 400 MG TAB PO SCH (07:42)
[2020-02-01] MEDS: CHOLECALCIFEROL 1,000 UNITS 25 MCG TAB PO SCH (07:42)
[2020-02-01] MEDS: METOPROLOL SUCC 50MG EXT REL TAB PO SCH (07:42)
[2020-02-01] MEDS: SERTRALINE HCL 50 MG TABLET PO SCH (07:42)
[2020-02-01] MEDS: glipiZIDE 5 MG TAB PO SCH (07:43)
[2020-02-01] MEDS: UMECLIDINIUM BROMIDE 62.5MCG/BLISTER 7 PUFFS/INHALER INH SCH (07:43)
[2020-02-01] MEDS ORDERED: GLUCOSE 10 TABS/TUBE PO PRN (08:45)
[2020-02-01] MEDS ORDERED: CARBOHYDRATES FOR HYPOGLYCEMIA PO PRN (08:45)
[2020-02-01] MEDS ORDERED: GLUCOSE 40% GEL 15 GM TUBE PO PRN (08:45)
[2020-02-01] MEDS ORDERED: GLUCAGON FOR INJ 1 MG VIAL IM PRN (08:45)
[2020-02-01] MEDS ORDERED: DEXTROSE 50% 50 ML SYRINGE IV PRN (08:45)
[2020-02-01] MEDS: INSULIN ASPART 100 UNITS/ML 3 ML PEN SC SCH ×3 (12:24→20:24)
--- NOTE | 2020-02-01 14:37 | Hospitalist Progress Note ---
Date of Service February 01, 2020 Assessment & Plan (1) Pneumonia: Blood cultures pending, patient is clinically improved on abx overnight with resolution of leukocytosis. Fluid management per Nephrology. Will plan to cont current abx for another 24 hours and de-escalate in am if afebrile and continues to clinically improve. Outpatient CXR needed in 4 weeks to ensure complete resolution. (2) COPD (chronic obstructive pulmonary disease): oxygen dependent at baseline continuously per daughter. No increased oxygen needs at home or here. No respiratory distress or wheezing on exam. No evidence of exacerbation at this time. Cont home meds and nebs PRN. (3) Pleural effusion: persistent from prior xrays. Pt has chronic diastolic failure but here appears to be presenting with an acute respiratory illness as opposed to an exacerbation of heart failure. Cont fluid management through HD. (4) ESRD (end stage renal disease): Consult nephrology to continue hemodialysis (5) Chronic diastolic heart failure: HD for fluid management as above. (6) Diabetes mellitus, type 2: At inpatient goal on Novolog for correction factor and carb ratio. Cont current management. A1C 7.2 (7) CARLOS ALBERTO (obstructive sleep apnea): CPAP qHS (8) Atrial fibrillation: Not on any anticoagulation likely secondary to history of subdural hematoma and fall risk. Afib present on telemetry review overnight. Rate controlled with Toprol XL. (9) DVT prophylaxis: Heparin DNR/DNI Dispo-cont hospitalization, plan for home when medially stable. Appreciate PT/OT evlauation and recs. Isabel Stewart DO [facility] Hospitalist Admission and Anticipated Discharge Date Admission Date: January 31, 2020 Anticipated date of discharge: 02/02/20 Subjective Pt not wanting to talk much, daughter at bedside and provides the majority of the history Pt feels better today Reports a chronic cough Otherwise not reporting other issues. ESRD due tomorrow. Review of Systems Review of Systems: All systems reviewed & are unremarkable except as noted in Subjective Physical Exam Physical Exam: CONSTITUTIONAL: WNWD, vitals as above, generally well- appearing EYES: normal conjunctivae, no scleral icterus ENT: MMM RESPIRATORY: clear to auscultation bilaterally, no crackles, rales or wheezes, normal respiratory effort CARDIOVASCULAR: regular rate and rhythm, S1 and 2 heard without murmurs, gallops or rubs, no JVD, no peripheral edema GASTROINTESTINAL: normal bowel sounds, soft, nontender, nondistended MUSCULOSKELETAL: Head NC/AT, moves all extremities equally. SKIN: warm and dry, RUE fistula with palpable thrill. NEUROLOGIC: CN 2-12 grossly intact, no sensory deficit, normal cognition, normal speech, limited participation in exam PSYCHIATRIC: alert cooperative and oriented to person, place and time. Results & Data ([facility]) Vital Signs (Past 12 Hours) Vital Signs Temp Pulse Pulse Resp BP Pulse Ox 02/01/20 11:15 37.0 C 87 18 123/71 95 02/01/20 08:00 76 02/01/20 07:00 36.8 C 88 20 124/67 94 02/01/20 03:00 36.9 C 101 H 20 123/55 L 95 Laboratory Results Short CBC 01/31/20 Range/Units 16:41 WBC 5.75 (4.8-10.8) K/uL Hgb 11.5 L (14.0-18.0) g/dL Hct 37.4 L (42-52) % Plt Count 243 (130-400) K/uL BMP 01/31/20 16:41 Sodium 136 Potassium 4.0 Chloride 100 Carbon Dioxide 33 H BUN 15 Creatinine 2.10 H Glucose 184 H Calcium 8.9 Cardiac Enzymes 01/31/20 Range/Units 16:41 Troponin I < 0.015 (0-0.045) ng/ml Liver Function 01/31/20 Range/Units 16:41 Total Bilirubin 0.4 (0.2-1) mg/dl AST 20 (15-37) U/L ALT 26 (12-78) U/L Alkaline Phosphatase 74 (45-117) U/L Albumin 2.9 L (3.4-5.0) gm/dl Medications Administered Current Inpatient Medications Albuterol (Ventolin Hfa) 1 puffs INH QID PRN PRN Reason: Shortness Of Breath Stop: 03/01/20 21:38 Dextrose (Dextrose 50%) 25 - 50 ml IV UD PRN; Protocol PRN Reason: Hypoglycemia Protocol Stop: 03/02/20 08:44 Glucagon (Glucagen) 1 mg IM UD PRN; Protocol PRN Reason: Hypoglycemia Protocol Stop: 03/02/20 08:44 Glucose (Glucose 40%) 15 - 30 gm PO UD PRN; Protocol PRN Reason: Hypoglycemia Protocol Stop: 03/02/20 08:44 Glucose (Dex4 Glucose) 4 - 8 tabs PO UD PRN; Protocol PRN Reason: Hypoglycemia Protocol Stop: 03/02/20 08:44 Cefepime HCl 1,000 mg/ Syringe 11.3 mls @ 5.5 mls/min IV Q12H [facility]; Protocol Stop: 02/07/20 18:59 Last Admin: 02/01/20 06:15 Dose: 5.5 mls/min Documented by: Doxycycline Hyclate 100 mg/ (Dextrose) 110 mls @ 50 mls/hr IV Q12H [facility] Stop: 02/07/20 18:59 Last Infusion: 02/01/20 07:44 Dose: Infused Documented by: Insulin Aspart (Novolog Flexpen) 0 units SC ACHS [facility] Stop: 03/02/20 11:29 Last Admin: 02/01/20 12:24 Dose: 3 units Documented by: Levetiracetam (Keppra) 500 mg PO BID [facility] Stop: 03/01/20 21:38 Last Admin: 02/01/20 07:38 Dose: 500 mg Documented by: Lovastatin (Mevacor) 80 mg PO HS [facility] Stop: 03/01/20 21:38 Last Admin: 01/31/20 23:25 Dose: 80 mg Documented by: Magnesium Oxide (Mag-Ox) 400 mg PO DAILY [facility] Stop: 03/02/20 08:59 Last Admin: 02/01/20 07:42 Dose: 400 mg Documented by: Metoprolol Succinate (Toprol Xl) 50 mg PO DAILY [facility] Stop: 03/02/20 08:59 Last Admin: 02/01/20 07:42 Dose: 50 mg Documented by: Miscellaneous (Order Awaiting Action) 1 ea N/A QS [facility] Stop: 03/02/20 00:00 Last Admin: 02/01/20 07:36 Dose: Not Given Documented by: Miscellaneous (Carbohydrates For Hypoglycemia) 15 - 30 gm PO UD PRN PRN Reason: Hypoglycemia Treatment Stop: 03/02/20 08:44 Sertraline HCl (Zoloft) 25 mg PO DAILY [facility] Stop: 03/02/20 08:59 Last Admin: 02/01/20 07:42 Dose: 25 mg Documented by: Umeclidinium Simms (Incruse Ellipta) 1 puffs INH DAILY [facility] Stop: 03/02/20 08:59 Last Admin: 02/01/20 07:43 Dose: 1 puffs Documented by: Vitamin D (Vitamin D3) 2,000 units PO DAILY [facility] Stop: 03/02/20 08:59 Last Admin: 02/01/20 07:42 Dose: 2,000 units Documented by: (1) Atrial fibrillation Atrial fibrillation type: paroxysmal Qualified Code(s): I48.0 - Paroxysmal atrial fibrillation
--- NOTE | 2020-02-01 14:56 | Nephrology Consultation ---
Date of Consultation February 01, 2020 Assessment & Plan (1) ESRD (end stage renal disease): Patient with ESRD on dialysis Wednesday using a right upper arm AV fistula. His last dialysis outpatient was on 01/31/2020. Electrolytes are stable today. No indication for dialysis today. Next dialysis will be tomorrow for 4 hours to get UF 2.5 L. (2) Pneumonia: Patient presented with cough and shortness of breath. Chest x-ray showed infiltrate. He is receiving cefepime and doxycycline. Renally dose antibiotics for GFR less than 25 mL/min while on dialysis. (3) Acute and chronic respiratory failure with hypoxia: Multifactorial including pneumonia and pulmonary edema. We will dialyze him tomorrow with negative for 2.5 L. Will optimize volume status with dialysis. History of Present Illness Reason for Consultation: ESRD and pneumonia Requesting Physician: Isabel Stewart DO Attending Physician: Isabel Stewart DO History of Present Illness This is a 79-year-old male with significant past medical history of ESRD on hemodialysis MWF, COPD on home oxygen at night, type 2 diabetes on insulin, depression, atrial fibrillation not on anticoagulation, CARLOS ALBERTO, hypertension and hyperlipidemia who was admitted on 01/31/2020 with weakness and a fall following dialysis. Patient had dialysis which was uneventful but on arriving home he felt dizzy and fell. He has been coughing for several days. He also complains of shortness of breath. No vomiting or diarrhea. Chest x-ray showed pulmonary vascular congestion and possible pneumonia. he is getting cefepime and doxy cycline. He feels better today but remains on oxygen. He has a right upper arm AV fistula. Allergies Allergy/AdvReac Type Severity Reaction Status Date / Time codeine AdvReac Intermediate NAUSEA Verified 01/31/20 17:09 Home Medications Home Medications Medication Instructions Recorded Confirmed Type Victoza 2-Fernando 1.2 mg SUBCUT DAILY 02/09/19 01/31/20 History cholecalciferol (vitamin D3) 2,000 units PO DAILY 02/09/19 01/31/20 History lovastatin 80 mg PO HS 02/09/19 01/31/20 History levetiracetam 500 mg PO BID 05/10/19 01/31/20 History metoprolol succinate 50 mg PO DAILY 11/21/19 01/31/20 History sertraline 25 mg PO DAILY 11/21/19 01/31/20 History glipizide 5 mg PO BID #60 tab 11/28/19 01/31/20 Rx albuterol sulfate 90 mcg/actuation 1 puffs INH QID PRN 01/17/20 01/31/20 History aerosol inhaler magnesium oxide 400 mg PO DAILY 01/17/20 01/31/20 History tiotropium bromide [Spiriva 2 puff INHALATION DAILY 01/31/20 01/31/20 History Respimat] Patient History Medical History AAA (abdominal aortic aneurysm) Asthma with COPD Atrial fibrillation (Chronic) dx 2015 - no longer taking warfarin - recent fall w/ brain bleed 03/2019 Chronic diastolic heart failure Chronic systolic heart failure (Chronic) CKD (chronic kidney disease), stage IV Daytime sleepiness Diabetes mellitus, type 2 (Chronic) Dyslipidemia (Chronic) ESRD (end stage renal disease) History of CVA (cerebrovascular accident) (Chronic) 2015 - dx w/ a.fib - [facility] - no deficits History of seizure (Resolved) history obtained from dtr - unsure of last seizure 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 - fall [place] [facility] [place]), benign (Chronic) Nocturnal hypoxemia CARLOS ALBERTO (obstructive sleep apnea) (Chronic) does not tolerate CPAP Severe chronic obstructive pulmonary disease Tobacco use disorder (Chronic) Surgical History History of back surgery (Resolved) History of cataract surgery (Chronic) History of colonoscopy (Chronic) History of esophagogastroduodenoscopy (EGD) (Chronic) History of lumbar spinal fusion (Chronic) x 2 History of tooth extraction (Chronic) Family History Mother Cancer Brother Diabetes Heart disease Social History Preferred Language: Maltese Communication Ability: Effective Telepathist Required: No Beliefs That Will Affect Care: None marital status: Current Living Situation: Family Other Information That Helps Us Care for You: No Feels Safe at Home: Yes Safety Concerns: Feels Safe At This Time Smoking Status: Unknown if ever smoked Hx Alcohol Use: No Hx Substance Use: No Review of Systems Review of Systems: All systems reviewed & are unremarkable except as noted in HPI & below Physical Exam Physical Exam: General exam: Appears comfortable, no acute distress HEENT: Pupils are equal and reactive to light Neck: No JVD, neck is supple trachea is midline Respiratory system: Clear breath sounds bilaterally. Gastrointestinal: Abdomen is soft, non distended, non tender, bowel sounds are present CVS: Regular rate and rhythm. No murmurs, rubs or gallops Musculoskeletal: No joint or muscle tenderness Extremities: Non tender, no edema, peripheral pulses are present Neuro: Oriented, no tremors, no focal neurological deficits Skin: No rashes Access: Right upper arm AV fistula. Results & Data Vital Signs (Past 12 Hours) Vital Signs Temp Pulse Pulse Resp BP Pulse Ox 02/01/20 11:15 37.0 C 87 18 123/71 95 02/01/20 08:00 76 02/01/20 07:00 36.8 C 88 20 124/67 94 02/01/20 03:00 36.9 C 101 H 20 123/55 L 95 Laboratory Results 01/31/20 16:41 01/31/20 01/31/20 16:41 16:41 WBC 5.75 RBC 4.08 L MCV 91.7 MCH 28.2 MCHC 30.7 L RDW Std Deviation 55.3 H RDW Coeff of Kiah 16.5 H Plt Count 243 MPV 9.3 Albumin 2.9 L
--- NOTE | 2020-02-01 17:31 | Electrocardiogram Report ---
Test Reason : Blood Pressure : / mmHG Vent. Rate : 104 BPM Atrial Rate : 156 BPM P-R Int : 000 ms QRS Dur : 092 ms QT Int : 332 ms P-R-T Axes : 000 080 094 degrees QTc Int : 436 ms Atrial fibrillation with rapid ventricular response Abnormal ECG When compared with ECG of 08-DEC-2019 07:07, No significant change Confirmed by Toni Gaines ([id number]) on 02/01/2020 5:31:29 PM Referred By: REFERRED SELF Confirmed By:Toni Gaines
[2020-02-01] MEDS: LOVASTATIN 20 MG TAB PO SCH (21:18)
[2020-02-01 21:50] LABS: Appearance Urine Cloudy (Clear); Bacteria Urine Automated Negative (Negative); Blood Urine Negative (Negative); Color Urine Dark Yellow; Epithelial Cell Urine Auto >30 /lpf (0-5); Glucose Urine UA Trace (Negative); Ketones Urine Trace (Negative); Leukocyte Esterase Urine Trace (Negative); Nitrite Urine Negative (Negative); Protein Urine 4+ (Negative); Specific Gravity Urine 1.027 (1.000-1.030); Urobilinogen Urine Negative (Negative)
[2020-02-01 21:57] LABS: Bilirubin Urine Negative (Negative); Ictotest Urine Negative (Negative)
[2020-02-02] MEDS: CEFEPIME 1,000 MG in SYRINGE 0 ML IV SCH (06:15)
[2020-02-02] MEDS: DOXYCYCLINE HYCLATE 100 MG in DEXTROSE 5% 100 ML IV SCH (06:16)
[2020-02-02] MEDS ORDERED: SODIUM CHLORIDE 0.9% 1000ML 1,000 ML IV PRN (07:00)
[2020-02-02] MEDS ORDERED: HEPARIN SOD (PORCINE) 1000 UNIT/ML 10 ML VIAL IV ONE (07:00)
[2020-02-02] MEDS: INSULIN ASPART 100 UNITS/ML 3 ML PEN SC SCH ×4 (08:10→20:38)
[2020-02-02] MEDS: MAGNESIUM OXIDE 400 MG TAB PO SCH (08:12)
[2020-02-02] MEDS: levETIRAcetam 500 MG TAB PO SCH ×2 (08:12→20:55)
[2020-02-02] MEDS: VICTOZA~ORDER AWAITING ACTION SCH (08:12)
[2020-02-02] MEDS: UMECLIDINIUM BROMIDE 62.5MCG/BLISTER 7 PUFFS/INHALER INH SCH (08:12)
[2020-02-02] MEDS: SERTRALINE HCL 50 MG TABLET PO SCH (08:13)
[2020-02-02] MEDS: CHOLECALCIFEROL 1,000 UNITS 25 MCG TAB PO SCH (08:13)
[2020-02-02 09:13] LABS: Estimated Average Glucose 160 mg/dl; Hemoglobin A1C 7.2 % (4.5-5.6)
[2020-02-02] MEDS: METOPROLOL SUCC 50MG EXT REL TAB PO SCH (09:22)
--- NOTE | 2020-02-02 11:18 | Hospitalist Progress Note ---
Date of Service February 02, 2020 Assessment & Plan (1) Generalized weakness: Significant weakness prompting presentation to the ER. He is not much improved despite two days of abx therapy. Will continue the investigation with CT head which revealed no acute intracracial abnormalities. He then received a brain MRI which was also normal except for a chronic right orbital floor fracture. PT/OT to assess him. Will also ask Neurology to see him as he is uncoordinated with strength testing and having a significant difficulty sitting up on his own and getting around independently, which is his baseline. (2) Pneumonia: Blood cultures negative and he is afebrile. De-escalated abx to Amoxicillin and doxycycline to finish course. (3) COPD (chronic obstructive pulmonary disease): oxygen dependent at baseline continuously per daughter. No increased oxygen needs at home or here. No respiratory distress or wheezing on exam. No evidence of exacerbation at this time. Cont home meds and nebs PRN. (4) Pleural effusion: persistent from prior xrays. Pt has chronic diastolic failure but here appears to be presenting with an acute respiratory illness as opposed to an exacerbation of heart failure. Cont fluid management through HD. 2L ultrafiltrate removed with today's session. (5) ESRD (end stage renal disease): Consult nephrology to continue hemodialysis (6) Chronic diastolic heart failure: HD for fluid management as above. (7) Diabetes mellitus, type 2: At inpatient goal on Novolog for correction factor and carb ratio. Cont current management. A1C 7.2 (8) CARLOS ALBERTO (obstructive sleep apnea): CPAP qHS (9) Atrial fibrillation: Not on any anticoagulation likely secondary to history of subdural hematoma and fall risk. Afib present on telemetry review overnight-downgraded to med/surg as vitals remain stable. Rate controlled with Toprol XL. (10) DVT prophylaxis: Heparin DNR/DNI Dispo-cont hospitalization, plan for home when medially stable. Appreciate PT/OT evlauation and recs. Isabel Stewart DO [facility] Hospitalist Admission and Anticipated Discharge Date Admission Date: January 31, 2020 Anticipated date of discharge: 02/03/20 Subjective Mr. Yuan is still in bed lying down on his left side. It is questionable how much he has moved today based on his report. He tried to sit up in bed today and it was a struggle. Without holding himself up significantly he would fall to the left. He is generally very weak with a typical baseline of walking independently. He is still coughing somewhat and states he thinks he is better. Review of Systems Review of Systems: All systems reviewed & are unremarkable except as noted in Subjective Physical Exam Physical Exam: CONSTITUTIONAL: WNWD, vitals as above, generally well- appearing but appears fatigued EYES: normal conjunctivae, no scleral icterus, deviation of the right eye which is still able to follow in all planes of motion (EOMI). ENT: MMM, there is some facial asymmetry present but no madelyn facial droop. This may be chronic. Bilateral cerumen impactions with tortuous external auditory canals. TM was not easily visible on either side. RESPIRATORY: clear to auscultation bilaterally, no crackles, rales or wheezes, normal respiratory effort CARDIOVASCULAR: regular rate and rhythm, S1 and 2 heard without murmurs, gallops or rubs, no JVD, no peripheral edema GASTROINTESTINAL: soft, nontender, nondistended MUSCULOSKELETAL: Head NC/AT, moves all extremities equally. SKIN: warm and dry, RUE fistula with palpable thrill. NEUROLOGIC: CN 2-12 grossly intact, no sensory deficit, normal cognition, normal speech, difficult time getting into a sitting position and holding his arms out in front of him. Appears to fall to the left PSYCHIATRIC: alert cooperative and oriented to person, place and time. Results & Data ([facility]) Vital Signs (Past 12 Hours) Vital Signs Temp Pulse Pulse Resp BP Pulse Ox 02/02/20 11:17 37.2 C 95 H 20 126/77 92 02/02/20 09:19 99 H 02/02/20 07:39 37.3 C 101 H 18 132/65 90 02/02/20 04:17 37.3 C 93 H 18 129/69 92 Laboratory Results Urine 02/01/20 Range/Units 19:15 Urine Color Dark Yellow Urine Appearance Cloudy A (Clear) Urine pH 5.0 (4.5-7.5) Ur Specific [place] 1.027 (1.000-1.030) Urine Protein 4+ H (Negative) Urine Glucose (UA) Trace H (Negative) Medications Administered Current Inpatient Medications Albuterol (Ventolin Hfa) 1 puffs INH QID PRN PRN Reason: Shortness Of Breath Stop: 03/01/20 21:38 Amoxicillin (Amoxil) 500 mg PO DAILY [facility]; Protocol Stop: 02/06/20 09:01 Amoxicillin (Amoxil) 500 mg PO MoWeFr@1800 [facility]; Protocol Stop: 02/05/20 18:01 Dextrose (Dextrose 50%) 25 - 50 ml IV UD PRN; Protocol PRN Reason: Hypoglycemia Protocol Stop: 03/02/20 08:44 Doxycycline Hyclate (Vibramycin) 100 mg PO BID@0700,1900 [facility]; Protocol Stop: 02/07/20 07:01 Glucagon (Glucagen) 1 mg IM UD PRN; Protocol PRN Reason: Hypoglycemia Protocol Stop: 03/02/20 08:44 Glucose (Glucose 40%) 15 - 30 gm PO UD PRN; Protocol PRN Reason: Hypoglycemia Protocol Stop: 03/02/20 08:44 Glucose (Dex4 Glucose) 4 - 8 tabs PO UD PRN; Protocol PRN Reason: Hypoglycemia Protocol Stop: 03/02/20 08:44 Heparin Sodium (Porcine) (Heparin Sodium (Porcine)) 5,000 units SQ Q8 [facility] Stop: 03/03/20 13:59 Sodium Chloride (Nss 1000ml) 1,000 mls @ 0 mls/hr IV .Q0M PRN PRN Reason: For Hemodialysis Use ONLY Stop: 02/02/20 12:59 Insulin Aspart (Novolog Flexpen) 0 units SC [facility] Stop: 03/02/20 11:29 Last Admin: 02/02/20 08:10 Dose: 3 units Documented by: Levetiracetam (Keppra) 500 mg PO BID [facility] Stop: 03/01/20 21:38 Last Admin: 02/02/20 08:12 Dose: 500 mg Documented by: Lovastatin (Mevacor) 80 mg PO HS [facility] Stop: 03/01/20 21:38 Last Admin: 02/01/20 21:18 Dose: 80 mg Documented by: Magnesium Oxide (Mag-Ox) 400 mg PO DAILY [facility] Stop: 03/02/20 08:59 Last Admin: 02/02/20 08:12 Dose: 400 mg Documented by: Metoprolol Succinate (Toprol Xl) 50 mg PO DAILY [facility] Stop: 03/02/20 08:59 Last Admin: 02/02/20 09:22 Dose: Not Given Documented by: Miscellaneous (Carbohydrates For Hypoglycemia) 15 - 30 gm PO UD PRN PRN Reason: Hypoglycemia Treatment Stop: 03/02/20 08:44 Sertraline HCl (Zoloft) 25 mg PO DAILY [facility] Stop: 03/02/20 08:59 Last Admin: 02/02/20 08:13 Dose: 25 mg Documented by: Umeclidinium [place] (Incruse Ellipta) 1 puffs INH DAILY [facility] Stop: 03/02/20 08:59 Last Admin: 02/02/20 08:12 Dose: 1 puffs Documented by: Vitamin D (Vitamin D3) 2,000 units PO DAILY [facility] Stop: 03/02/20 08:59 Last Admin: 02/02/20 08:13 Dose: 2,000 units Documented by: (1) Atrial fibrillation Atrial fibrillation type: paroxysmal Qualified Code(s): I48.0 - Paroxysmal atrial fibrillation
[2020-02-02] MEDS: HEPARIN SOD 5,000 UNIT/0.5 ML VIAL SQ SCH ×2 (12:50→20:55)
--- NOTE | 2020-02-02 16:21 | Nephrology Progress Note ---
Date of Service February 02, 2020 Assessment & Plan (1) ESRD (end stage renal disease): Patient with ESRD on dialysis Wednesday using a right upper arm AV fistula. His last dialysis outpatient was on 01/31/2020. Electrolytes are stable today. Patient will have dialysis today for 4 hours to get UF 2.5 L. (2) Pneumonia: Patient presented with cough and shortness of breath. Chest x-ray showed infiltrate. He is receiving cefepime and doxycycline. Renally dose antibiotics for GFR less than 25 mL/min while on dialysis. (3) Acute and chronic respiratory failure with hypoxia: Multifactorial including pneumonia and pulmonary edema. Will optimize volume status with dialysis. Admission and Anticipated Discharge Date Admission Date: January 31, 2020 Anticipated date of discharge: 02/02/20 Subjective Patient is complaining of weakness and shortness of breath. No vomiting or diarrhea. Review of Systems Review of Systems: All systems reviewed & are unremarkable except as noted in HPI & below Physical Exam Physical Exam: General exam: Appears comfortable, no acute distress HEENT: Pupils are equal and reactive to light Neck: No JVD, neck is supple trachea is midline Respiratory system: Clear breath sounds bilaterally. Gastrointestinal: Abdomen is soft, non distended, non tender, bowel sounds are present CVS: Regular rate and rhythm. No murmurs, rubs or gallops Musculoskeletal: No joint or muscle tenderness Extremities: Non tender, no edema, peripheral pulses are present Neuro: Oriented, no tremors, no focal neurological deficits Skin: No rashes Access: Right upper arm AV fistula with good bruit Results & Data ([facility]) Vital Signs (Past 12 Hours) Vital Signs Temp Pulse Pulse Resp BP Pulse Ox 02/02/20 15:00 37.1 C 95 H 20 138/62 95 02/02/20 11:17 37.2 C 95 H 20 126/77 92 02/02/20 09:19 99 H 02/02/20 07:39 37.3 C 101 H 18 132/65 90 Laboratory Results 01/31/20 16:41
--- NOTE | 2020-02-02 16:46 | CT Scan Report ---
CT SCAN OF THE BRAIN WITHOUT IV CONTRAST CLINICAL HISTORY: Persistent weakness. COMPARISON STUDY: CT of the brain dated 07/26/2019. TECHNIQUE: Unenhanced axial CT scan of the brain is performed from the vertex to the skull base. A do se lowering technique was utilized adhering to the principles of ALARA. The skull base was scanned tw ice due to motion artifact. CT DOSE: 952.11 mGy.cm FINDINGS: Brain parenchyma: There are age-related involutional changes noting mild subcortical and periventric ular microangiopathic change. There is no hemorrhage, mass effect, or evidence of acute territorial i schemia by CT criteria. Chou-white matter differentiation is preserved. No extra-axial fluid collecti on is seen. Trace subdural hemorrhages seen on 07/26/2019 are no longer apparent. Ventricles, sulci, cisterns: Prominent secondary to involutional change. Intracranial vasculature: There is atherosclerotic calcification of the cavernous carotid and vertebr al arteries. Calvarium: Unremarkable. Sinuses and mastoids: The visualized paranasal sinuses are clear. The mastoid air cells are well pneu matized. Cerumen is noted in the external auditory canals. Orbits: There is evidence of a chronic right orbital floor fracture. The bony orbits are otherwise gr ossly intact. There are bilateral ocular lens implants. IMPRESSION: There is no hemorrhage, mass effect, or evidence of acute territorial ischemia by CT maydat nadia. ACT 112: Negative or not required by law. Electronically signed by: Aman Valverde M.D. 02/02/2020 4:45 PM
[2020-02-02] MEDS: DOXYCYCLINE HYCLATE 100 MG CAP PO SCH (19:42)
[2020-02-02] MEDS: AMOXICILLIN 500 MG CAP PO SCH (19:42)
[2020-02-02] MEDS: LOVASTATIN 20 MG TAB PO SCH (20:55)
--- NOTE | 2020-02-02 21:47 | Magnetic Resonance Report ---
MRI OF THE BRAIN WITHOUT IV CONTRAST CLINICAL HISTORY: Ataxia and weakness. COMPARISON STUDY: CT of the brain dated 02/02/2020. TECHNIQUE: MRI of the brain was performed utilizing various T1 and T2-weighted sequences in the axial , sagittal, and coronal planes. IV contrast was not administered for this examination. FINDINGS: Brain parenchyma: There is age-related involutional change noting oyxw-kw-yandjykh subcortical and pe riventricular microangiopathic disease. There is no hemorrhage or mass effect. There is no restricted diffusion to suggest acute ischemia. Chou-white matter differentiation is preserved. No extra-axial fluid collection is seen. The cerebellar tonsils are normal in configuration. Ventricles, sulci, and cisterns: Prominent secondary to involutional change. Pituitary and sella: Unremarkable. Intracranial vasculature: Normal flow voids are maintained at the skull base. Orbits: There is a chronic right orbital floor fracture. Orbital contents are normal in appearance no ting bilateral ocular lens implants. Sinuses and mastoids: Clear. Calvarium: Unremarkable. Cervical cord: Partially visualized cervical spinal cord is normal in morphology and signal intensity . IMPRESSION: No acute intracranial abnormality. ACT 112: Negative or not required by law. Electronically signed by: Aman Valverde M.D. 02/02/2020 9:45 PM
[2020-02-03 06:08] LABS: Hematocrit (blood only) 31.5 % (42-52); Hemoglobin 9.7 g/dL (14.0-18.0); Mean Corpuscular Hemoglobin 27.6 pg (25-34); Mean Corpuscular Hgb Conc 30.8 g/dL (32-36); Mean Corpuscular Volume 89.7 fL (80-100); Mean Platelet Volume 9.2 fL (7.4-10.4); Platelet Count 175 K/uL (130-400); RDW Coefficient of Variation 16.7 % (11.5-14.5); RDW Standard Deviation 54.9 fL (36.4-46.3); Red Blood Count 3.51 M/uL (4.7-6.1); White Blood Count 4.22 K/uL (4.8-10.8)
[2020-02-03] MEDS: DOXYCYCLINE HYCLATE 100 MG CAP PO SCH ×2 (06:14→18:29)
[2020-02-03] MEDS: HEPARIN SOD 5,000 UNIT/0.5 ML VIAL SQ SCH ×3 (06:15→21:05)
[2020-02-03 06:25] LABS: BUN Creatinine Ratio 10.7 (10-20); Calcium 8.5 mg/dl (8.5-10.1); Creatinine Clr Calc Pharmacy 25.8 ml/min; Est GFR (African American) 22.8; Est GFR (Non-African American) 19.7; Magnesium 1.9 mg/dl (1.8-2.4); Potassium 4.1 mmol/L (3.5-5.1)
[2020-02-03 06:35] LABS: Phosphorus 3.1 mg/dl (2.5-4.9); Thyroid Stimulating Hormone 2.59 uIu/ml (0.300-4.500)
[2020-02-03 08:47] LABS: Folate (Folic Acid) > 24.00 ng/ml (>5.38); Vitamin B12 582 pg/ml (211-911)
[2020-02-03] MEDS: INSULIN ASPART 100 UNITS/ML 3 ML PEN SC SCH ×4 (08:49→20:16)
[2020-02-03] MEDS: UMECLIDINIUM BROMIDE 62.5MCG/BLISTER 7 PUFFS/INHALER INH SCH (08:51)
[2020-02-03] MEDS: METOPROLOL SUCC 50MG EXT REL TAB PO SCH (08:52)
[2020-02-03] MEDS: SERTRALINE HCL 50 MG TABLET PO SCH (08:52)
[2020-02-03] MEDS: levETIRAcetam 500 MG TAB PO SCH ×2 (08:53→21:04)
[2020-02-03] MEDS: CHOLECALCIFEROL 1,000 UNITS 25 MCG TAB PO SCH (08:53)
[2020-02-03] MEDS: MAGNESIUM OXIDE 400 MG TAB PO SCH (08:53)
[2020-02-03] MEDS: AMOXICILLIN 500 MG CAP PO SCH (08:53)
--- NOTE | 2020-02-03 09:10 | Nephrology Progress Note ---
Date of Service February 03, 2020 Assessment & Plan (1) ESRD (end stage renal disease): Patient with ESRD on dialysis Wednesday using a right upper arm AV fistula. His last dialysis outpatient was on 01/31/2020. Electrolytes are stable today. Patient tolerated dialysis well yesterday for 4 hours to get UF 2.5 L. Next dialysis will be Wednesday (2) Pneumonia: Patient presented with cough and shortness of breath. Chest x-ray showed infiltrate. He is receiving cefepime and doxycycline. Renally dose antibiotics for GFR less than 25 mL/min while on dialysis. (3) Acute and chronic respiratory failure with hypoxia: Multifactorial including pneumonia and pulmonary edema. Will optimize volume status with dialysis. Admission and Anticipated Discharge Date Admission Date: January 31, 2020 Anticipated date of discharge: 02/03/20 Subjective Patient is sleepy this morning. Daughter was at the bedside. He remains weak and unable to sit unsupported. Review of Systems Review of Systems: All systems reviewed & are unremarkable except as noted in HPI & below Physical Exam Physical Exam: General exam: Appears comfortable, no acute distress HEENT: Pupils are equal and reactive to light Neck: No JVD, neck is supple trachea is midline Respiratory system: Clear breath sounds bilaterally. Gastrointestinal: Abdomen is soft, non distended, non tender, bowel sounds are present CVS: Regular rate and rhythm. No murmurs, rubs or gallops Musculoskeletal: No joint or muscle tenderness Extremities: Non tender, no edema, peripheral pulses are present Neuro: Oriented, global weakness Skin: No rashes Access: AV fistula Results & Data ([facility]) Vital Signs (Past 12 Hours) Vital Signs Temp Pulse Resp BP Pulse Ox 02/03/20 07:09 36.8 C 97 H 18 156/81 H 92 02/02/20 23:14 36.9 C 95 H 18 138/69 95 Laboratory Results 02/03/20 05:59 02/03/20 02/03/20 05:59 05:59 WBC 4.22 L RBC 3.51 L MCV 89.7 MCH 27.6 MCHC 30.8 L RDW Std Deviation 54.9 H RDW Coeff of Kiah 16.7 H Plt Count 175 MPV 9.2 Phosphorus 3.1
--- NOTE | 2020-02-03 10:45 | Neurology Consultation ---
Date of Consultation February 03, 2020 Assessment & Plan (1) Generalized weakness: A 79 year old male with multiple medical comorbids and multiple admission currently admitted for pneumonia. WAs seen previously by myself in January for delirium and patient complainde of weakness at this time. CK level is Normal. MRI brain Negative for ischemic stroke. B12 normal. Recommend PT/OT. Weakness likely multi factorial including critical illness myopathy Vs deconditioning. Improved today so likely deconditioning in the setting of infetion. Recommend physical therapy. Please call with any further questions. (2) COPD (chronic obstructive pulmonary disease): (3) ESRD (end stage renal disease): (4) Diabetes mellitus, type 2: History of Present Illness Reason for Consultation: Weakness Requesting Physician: Dr. Stewart Attending Physician: Isabel Stewart, History of Present Illness A 79 year old male with multipke comorbids including ESRD and COPD admitted for pneumonia. Neurology consult for weakness. PAtient had MRI brain wich showed no evidence of acute stroke. CK level was Low. Patient reports feeling Ok. Reading the paper. States feeling better since he was admitted. Allergies Allergy/AdvReac Type Severity Reaction Status Date / Time codeine AdvReac Intermediate NAUSEA Verified 01/31/20 17:09 Home Medications Home Medications Medication Instructions Recorded Confirmed Type Victoza 2-Fernando 1.2 mg SUBCUT DAILY 02/09/19 01/31/20 History cholecalciferol (vitamin D3) 2,000 units PO DAILY 02/09/19 01/31/20 History lovastatin 80 mg PO HS 02/09/19 01/31/20 History levetiracetam 500 mg PO BID 05/10/19 01/31/20 History metoprolol succinate 50 mg PO DAILY 11/21/19 01/31/20 History sertraline 25 mg PO DAILY 11/21/19 01/31/20 History glipizide 5 mg PO BID #60 tab 11/28/19 01/31/20 Rx albuterol sulfate 90 mcg/actuation 1 puffs INH QID PRN 01/17/20 01/31/20 History aerosol inhaler magnesium oxide 400 mg PO DAILY 01/17/20 01/31/20 History tiotropium bromide [Spiriva 2 puff INHALATION DAILY 01/31/20 01/31/20 History Respimat] Patient History Medical History AAA (abdominal aortic aneurysm) Asthma with COPD Atrial fibrillation (Chronic) dx 2016 - no longer taking warfarin - recent fall w/ brain bleed 03/2019 Chronic diastolic heart failure Chronic systolic heart failure (Chronic) CKD (chronic kidney disease), stage IV Daytime sleepiness Diabetes mellitus, type 2 (Chronic) Dyslipidemia (Chronic) ESRD (end stage renal disease) History of CVA (cerebrovascular accident) (Chronic) 2016 - dx w/ a.fib - [facility] - no deficits History of seizure (Resolved) history obtained from dtr - unsure of last seizure 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 - fall - [place] ER visit 03/30/2019 --> [facility] HTN (hypertension), benign (Chronic) Nocturnal hypoxemia CARLOS ALBERTO (obstructive sleep apnea) (Chronic) does not tolerate CPAP Severe chronic obstructive pulmonary disease Tobacco use disorder (Chronic) Surgical History History of back surgery (Resolved) History of cataract surgery (Chronic) History of colonoscopy (Chronic) History of esophagogastroduodenoscopy (EGD) (Chronic) History of lumbar spinal fusion (Chronic) x 2 History of tooth extraction (Chronic) Family History Mother Cancer Brother Diabetes Heart disease Social History Preferred Language: [place]ian Communication Ability: Effective Access Control Specialist Required: No Beliefs That Will Affect Care: None marital status: Current Living Situation: Family Other Information That Helps Us Care for You: No Feels Safe at Home: Yes Safety Concerns: Feels Safe At This Time Smoking Status: Unknown if ever smoked Hx Alcohol Use: No Hx Substance Use: No Physical Exam Physical Exam: Constitutional: appears chronicallyill, obese, and Face: normocephalic and atraumatic Eyes: normal lids, normal conjunctiva appearance Neck: supple Respiratory: normal effort Cardiovascular: normal pulses Abdomen: non distended Skin: no rashes Psychiatric: flat NEUROLOGIC EXAMINATION: Appearance: no acute distress Orientation: awake, alert and oriented to name, oriented to age Mental Status: alert Attention: normal Knowledge: poor Language: comprehension is intact and he can repeat Speech: mild dysarthria Cranial Nerves: CN 2 - no visual defect on confrontation and pupils round, equal, reactive to light CN 3, 4, 6 - extra-ocular movements intact CN 5 - facial sensation intact CN 7 - no facial asymmetry CN 8 - intact hearing CN 9, 10 - palate symmetric CN 11 - good shoulder shrug CN 12 - deviates to the right Gait:sitting in chair reading paper Coordination: no ataxia with finger to nose testing Sensory: intact and symmetric to light touch Muscle Tone: normal Muscle exam: 5/5 in shoulder abduction and hip flexion, ankle dosiflexion is 5/5, interosseos 4+/5 Reflexes: No ankle clonus, Negative beavers Results & Data Vital Signs (Past 12 Hours) Vital Signs Temp Pulse Resp BP Pulse Ox 02/03/20 07:09 36.8 C 97 H 18 156/81 H 92 02/02/20 23:14 36.9 C 95 H 18 138/69 95
--- NOTE | 2020-02-03 14:22 | XRay Report ---
XR chest 1V portable CLINICAL HISTORY: 79 years-old Male presenting with weakness, not much clinical improvement, +pna. TECHNIQUE: Portable upright AP view of the chest was obtained. COMPARISON: 01/31/2020. FINDINGS: Atherosclerosis of the aortic arch. Cardiac silhouette enlarged. Pulmonary vasculature remains promin ent. Punctate hyperdense focus projects over the right lung base as on prior. Large left and small ri ght pleural effusions. Poor aeration of the left mid to lower lung and right lung base. Degenerative changes of the thoracic spine. Upper abdomen normal. IMPRESSION: 1. Persistent large left and small right pleural effusions with associated extensive atelectasis/con solidation. This is unchanged. 2. Cardiomegaly with volume overload. ACT 112: Negative or not required by law. Electronically signed by: Robinson Allison M.D. 02/03/2020 2:21 PM
--- NOTE | 2020-02-03 15:00 | Hospitalist Progress Note ---
Date of Service February 03, 2020 Assessment & Plan (1) Generalized weakness: Still with persistent weakness including being too weak to sit up. Coordination and balance is off. Couldn't visualize tympanic membranes on exam yesterday 2/[address] and brain MRI were negative for intracranial abnormalities. 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 Cont PT/OT efforts and treatment of pneumonia. (2) Pneumonia: Blood cultures negative and he is afebrile. De-escalated abx to Amoxicillin and doxycycline to finish course. (3) COPD (chronic obstructive pulmonary disease): oxygen dependent at baseline continuously. No increased oxygen needs at home or here. No respiratory distress or wheezing on exam. No evidence of exacerbation at this time. Cont home meds and nebs PRN. (4) Pleural effusion: persistent from prior xrays in the setting of chronic diastolic heart fail ure. Persistent on CXR today. Will cont hemodialysis with ultrafiltration as tolerated and start with some Lasix. Discussed plan with [employer]. (5) ESRD (end stage renal disease): Consult nephrology to continue hemodialysis (6) Chronic diastolic heart failure: HD for fluid management as above and will add some Lasix, also. (7) Diabetes mellitus, type 2: At inpatient goal on Novolog for correction factor and carb ratio. Cont current management. A1C 7.2. Holding on adding glargine after hypoglycemic episode the other day. (8) CARLOS ALBERTO (obstructive sleep apnea): CPAP qHS (9) Atrial fibrillation: Not on any anticoagulation likely secondary to history of subdural hematoma and fall risk. Persistent atrial fibrillation which is rate controlled with Toprol XL. (10) Anemia: Likely multifactorial in etiology including CKD, chronic medical problems, and iron deficiency anemia. Iron supplementation was started based on low iron levels found on blood work today. Prior colonoscopy was performed 02/26/2010 revealing 2 sessile polyps that were resected. Recommendations at that time were to repeat the colonoscopy in 3 to 5 years for surveillance based on pathology results. There are no further studies since that time. Recommend a repeat colonoscopy as outpatient. (11) DVT prophylaxis: Heparin DNR/DNI Dispo-cont hospitalization, plan for home when medially stable. Appreciate PT/OT evlauation and recs. May need to plan for SNF at discharge as patient is not improving much physically. Isabel Stewart DO [facility] Hospitalist Admission and Anticipated Discharge Date Admission Date: January 31, 2020 Anticipated date of discharge: 02/05/20 Subjective Not very forthcoming with information denies pain When asked if he was weak he states "I'm alright" Daughter at bedside and briefed her on the plan. she reports patient was falling over on her while sitting up to eat breakfast this morning. No increased oxygen needs overnight. Review of Systems Review of Systems: All systems reviewed & are unremarkable except as noted in Subjective Physical Exam Physical Exam: CONSTITUTIONAL: WNWD, vitals as above, generally well- appearing but appears fatigued EYES: normal conjunctivae, no scleral icterus, deviation of the right eye which is still able to follow in all planes of motion (EOMI). ENT: MMM, there is some facial asymmetry present but no madelyn facial droop. This may be chronic. RESPIRATORY: clear to auscultation bilaterally, no crackles, rales or wheezes, normal respiratory effort, decreased breath sounds throughout CARDIOVASCULAR: regular rate and rhythm, S1 and 2 heard without murmurs, gallops or rubs, no JVD, no peripheral edema GASTROINTESTINAL: soft, nontender, nondistended MUSCULOSKELETAL: Head NC/AT, moves all extremities equally. SKIN: warm and dry, RUE fistula with palpable thrill. NEUROLOGIC: CN 2-12 grossly intact, no sensory deficit, normal cognition, normal speech, difficult time getting into a sitting position and holding his arms out in front of him. Appears to fall to the left PSYCHIATRIC: alert cooperative and oriented to person, place and time. Results & Data ([facility]) Vital Signs (Past 12 Hours) Vital Signs Temp Pulse Resp BP Pulse Ox 02/03/20 07:09 36.8 C 97 H 18 156/81 H 92 Laboratory Results Short CBC 02/03/20 Range/Units 05:59 WBC 4.22 L (4.8-10.8) K/uL Hgb 9.7 L (14.0-18.0) g/dL Hct 31.5 L (42-52) % Plt Count 175 (130-400) K/uL BMP 02/03/20 05:59 Sodium 137 Potassium 4.1 Chloride 101 Carbon Dioxide 29 BUN 31 H Creatinine 2.90 H Glucose 108 H Calcium 8.5 Cardiac Enzymes 02/03/20 Range/Units 05:59 Total Creatine Kinase 33 L (39-308) U/L Diagnostic Findings XR chest 1V portable. FINDINGS: Atherosclerosis of the aortic arch. Cardiac silhouette enlarged. Pulmonary vasculature remains prominent. Punctate hyperdense focus projects over the right lung base as on prior. Large left and small right pleural effusions. Poor aeration of the left mid to lower lung and right lung base. Degenerative changes of the thoracic spine. Upper abdomen normal. IMPRESSION: 1. Persistent large left and small right pleural effusions with associated extensive atelectasis/consolidation. This is unchanged. 2. Cardiomegaly with volume overload. Medications Administered Current Inpatient Medications Albuterol (Ventolin Hfa) 1 puffs INH QID PRN PRN Reason: Shortness Of Breath Stop: 03/01/20 21:38 Amoxicillin (Amoxil) 500 mg PO DAILY [facility]; Protocol Stop: 02/06/20 09:01 Last Admin: 02/03/20 08:53 Dose: 500 mg Documented by: Amoxicillin (Amoxil) 500 mg PO MoWeFr@1800 [facility]; Protocol Stop: 02/05/20 18:01 Last Admin: 02/02/20 19:42 Dose: 500 mg Documented by: Dextrose (Dextrose 50%) 25 - 50 ml IV UD PRN; Protocol PRN Reason: Hypoglycemia Protocol Stop: 03/02/20 08:44 Doxycycline Hyclate (Vibramycin) 100 mg PO BID@0700,1900 [facility]; Protocol Stop: 02/07/20 07:01 Last Admin: 02/03/20 06:14 Dose: 100 mg Documented by: Glucagon (Glucagen) 1 mg IM UD PRN; Protocol PRN Reason: Hypoglycemia Protocol Stop: 03/02/20 08:44 Glucose (Glucose 40%) 15 - 30 gm PO UD PRN; Protocol PRN Reason: Hypoglycemia Protocol Stop: 03/02/20 08:44 Glucose (Dex4 Glucose) 4 - 8 tabs PO UD PRN; Protocol PRN Reason: Hypoglycemia Protocol Stop: 03/02/20 08:44 Heparin Sodium (Porcine) (Heparin Sodium (Porcine)) 5,000 units SQ Q8 [facility] Stop: 03/03/20 13:59 Last Admin: 02/03/20 14:00 Dose: 5,000 units Documented by: Insulin Aspart (Novolog Flexpen) 0 units SC ACHS [facility] Stop: 03/02/20 11:29 Last Admin: 02/03/20 12:42 Dose: 10 units Documented by: Levetiracetam (Keppra) 500 mg PO BID [facility] Stop: 03/01/20 21:38 Last Admin: 02/03/20 08:53 Dose: 500 mg Documented by: Lovastatin (Mevacor) 80 mg PO HS [facility] Stop: 03/01/20 21:38 Last Admin: 02/02/20 20:55 Dose: 80 mg Documented by: Magnesium Oxide (Mag-Ox) 400 mg PO DAILY [facility] Stop: 03/02/20 08:59 Last Admin: 02/03/20 08:53 Dose: 400 mg Documented by: Metoprolol Succinate (Toprol Xl) 50 mg PO DAILY [facility] Stop: 03/02/20 08:59 Last Admin: 02/03/20 08:52 Dose: 50 mg Documented by: Miscellaneous (Carbohydrates For Hypoglycemia) 15 - 30 gm PO UD PRN PRN Reason: Hypoglycemia Treatment Stop: 03/02/20 08:44 Sertraline HCl (Zoloft) 25 mg PO DAILY [facility] Stop: 03/02/20 08:59 Last Admin: 02/03/20 08:52 Dose: 25 mg Documented by: Umeclidinium [place] (Incruse Ellipta) 1 puffs INH DAILY [facility] Stop: 03/02/20 08:59 Last Admin: 02/03/20 08:51 Dose: 1 puffs Documented by: Vitamin D (Vitamin D3) 2,000 units PO DAILY [facility] Stop: 03/02/20 08:59 Last Admin: 02/03/20 08:53 Dose: 2,000 units Documented by: (1) Atrial fibrillation Atrial fibrillation type: paroxysmal Qualified Code(s): I48.0 - Paroxysmal atrial fibrillation
[2020-02-03] MEDS ORDERED: FUROSEMIDE 20 MG in SYRINGE 0 ML IV ONE (15:30)
[2020-02-03] MEDS: FERROUS SULFATE 325 MG TAB PO SCH (17:14)
[2020-02-03] MEDS ORDERED: PHARMACY GLYCEMIC MGMT CONSULT PRN (17:34)
[2020-02-03] MEDS: LOVASTATIN 20 MG TAB PO SCH (21:04)
[2020-02-04] MEDS: DOXYCYCLINE HYCLATE 100 MG CAP PO SCH ×2 (06:06→19:09)
[2020-02-04] MEDS: HEPARIN SOD 5,000 UNIT/0.5 ML VIAL SQ SCH ×3 (06:06→20:30)
[2020-02-04] MEDS ORDERED: HEPARIN SOD (PORCINE) 1000 UNIT/ML 10 ML VIAL IV ONE (07:00)
[2020-02-04] MEDS: levETIRAcetam 500 MG TAB PO SCH ×2 (08:10→20:31)
[2020-02-04] MEDS: FERROUS SULFATE 325 MG TAB PO SCH ×2 (08:10→17:33)
[2020-02-04] MEDS: SERTRALINE HCL 50 MG TABLET PO SCH (08:11)
[2020-02-04] MEDS: METOPROLOL SUCC 50MG EXT REL TAB PO SCH (08:11)
[2020-02-04] MEDS: UMECLIDINIUM BROMIDE 62.5MCG/BLISTER 7 PUFFS/INHALER INH SCH (08:12)
[2020-02-04] MEDS: MAGNESIUM OXIDE 400 MG TAB PO SCH (08:12)
[2020-02-04] MEDS: CHOLECALCIFEROL 1,000 UNITS 25 MCG TAB PO SCH (08:12)
[2020-02-04] MEDS: AMOXICILLIN 500 MG CAP PO SCH (08:13)
[2020-02-04] MEDS: INSULIN ASPART 100 UNITS/ML 3 ML PEN SC SCH ×4 (08:59→20:32)
--- NOTE | 2020-02-04 09:57 | Nephrology Progress Note ---
Date of Service February 04, 2020 Assessment & Plan (1) ESRD (end stage renal disease): Patient with ESRD on dialysis Wednesday using a right upper arm AV fistula. His last dialysis outpatient was on 01/31/2020. Electrolytes are stable today. Patient tolerated dialysis well 02/01 for 4 hours with net UF 2.5 L. Next dialysis will be Wednesday for 4 hours and net UF of 3 L. Okay to upplement diuresis with Lasix as needed (2) Pneumonia: Patient presented with cough and shortness of breath. Chest x-ray showed infiltrate. He is receiving cefepime and doxycycline. Renally dose antibiotics for GFR less than 25 mL/min while on dialysis. (3) Acute and chronic respiratory failure with hypoxia: Multifactorial including pneumonia and pulmonary edema. Will optimize volume status with dialysis. Admission and Anticipated Discharge Date Admission Date: January 31, 2020 Anticipated date of discharge: 02/05/20 Subjective Feels better this morning. No shortness of breath. Still has global weakness and unable to sit unsupported. Review of Systems Review of Systems: All systems reviewed & are unremarkable except as noted in HPI & below Physical Exam Physical Exam: General exam: Appears comfortable, no acute distress HEENT: Pupils are equal and reactive to light Neck: No JVD, neck is supple trachea is midline Respiratory system: Clear breath sounds bilaterally. Gastrointestinal: Abdomen is soft, non distended, non tender, bowel sounds are present CVS: Regular rate and rhythm. No murmurs, rubs or gallops Musculoskeletal: No joint or muscle tenderness Extremities: Non tender, no edema, peripheral pulses are present Neuro: Oriented, no tremors, no focal neurological deficits Skin: No rashes Access: Right upper arm AV fistula with good bruit Results & Data ([facility]) Vital Signs (Past 12 Hours) Vital Signs Temp Pulse Resp BP Pulse Ox 02/04/20 07:05 37.2 C 96 H 18 169/90 H 92 02/03/20 23:34 36.9 C 100 H 18 152/74 H 92 Laboratory Results 02/03/20 05:59
--- NOTE | 2020-02-04 12:03 | Hospitalist Progress Note ---
Date of Service February 04, 2020 Assessment & Plan (1) Generalized weakness: Improved, continue PT/OT efforts and treatment of pneumonia. (2) Pneumonia: Blood cultures negative and remain afebrile. De-escalated abx to Amoxicillin and doxycycline to finish course. (3) COPD (chronic obstructive pulmonary disease): oxygen dependent at baseline continuously. No increased oxygen needs at home or here. No respiratory distress or wheezing on exam. No evidence of exacerbation at this time. Cont home meds and nebs PRN. (4) Pleural effusion: persistent from prior xrays in the setting of chronic diastolic heart failure. Persistent on CXR today. Will cont hemodialysis with ultrafiltration as tolerated. Of note, 1 dose of Lasix was given with no urine output. Continue with ultrafiltration as main volume status regulator. Low-salt diet. (5) ESRD (end stage renal disease): Consult nephrology to continue hemodialysis (6) Chronic diastolic heart failure: HD for fluid management as above (7) Diabetes mellitus, type 2: At inpatient goal on Novolog for correction factor and carb ratio. Cont current management. A1C 7.2. Noted hypoglycemic episode, the second of this admission, yesterday. Continue with glycemic pharmacist recommendations moving forward. (8) CARLOS ALBERTO (obstructive sleep apnea): CPAP qHS (9) Atrial fibrillation: Not on any anticoagulation likely secondary to history of subdural hematoma and fall risk. Persistent atrial fibrillation which is rate controlled with Toprol XL. (10) Anemia: Likely multifactorial in etiology including CKD, chronic medical problems, and iron deficiency anemia. Iron supplementation was started based on low iron levels found on blood work today. Prior colonoscopy was performed 02/26/2010 revealing 2 sessile polyps that were resected. Recommendations at that time were to repeat the colonoscopy in 3 to 5 years for surveillance based on patholo gy results. There are no further studies since that time. Recommend a repeat colonoscopy as outpatient. I discussed this recommendation with the patient and his daughter by phone today. She verbalized understanding with intent to set that up. (11) DVT prophylaxis: Heparin DNR/DNI Dispo-cont hospitalization, plan for home when medially stable. Appreciate PT/OT evlauation and recs. May need to plan for SNF at discharge as patient is not improving much physically. Isabel Stewart DO [facility] Admission and Anticipated Discharge Date Admission Date: January 31, 2020 Anticipated date of discharge: 02/05/20 Subjective Patient is feeling improved today. He has just finished his lunch and has no reported issues with breathing. He reports feeling his coughing has improved. Review of Systems Review of Systems: All systems reviewed & are unremarkable except as noted in Subjective Physical Exam Physical Exam: CONSTITUTIONAL: WNWD, vitals as above EYES: normal conjunctivae, no scleral icterus ENT: MMM RESPIRATORY: Difficult to get the patient to take big deep breaths, however, hear Rales at both bases bilaterally. No wheezes or crackles heard. Normal respiratory effort. CARDIOVASCULAR: regular rate and rhythm, S1 and 2 heard without murmurs, gallops or rubs, no JVD, no peripheral edema GASTROINTESTINAL: soft, nontender, nondistended MUSCULOSKELETAL: Head NC/AT, moves all extremities equally. Generalized w eakness SKIN: warm and dry, RUE fistula with palpable thrill. NEUROLOGIC: CN 2-12 grossly intact, no sensory deficit, normal cognition, no gross focal deficits. Gait not assessed PSYCHIATRIC: alert and cooperative. Results & Data ([facility]) Vital Signs (Past 12 Hours) Vital Signs Temp Pulse Resp BP Pulse Ox 02/04/20 07:05 37.2 C 96 H 18 169/90 H 92 02/03/20 23:34 36.9 C 100 H 18 152/74 H 92 Medications Administered Current Inpatient Medications Albuterol (Ventolin Hfa) 1 puffs INH QID PRN PRN Reason: Shortness Of Breath Stop: 03/01/20 21:38 Amoxicillin (Amoxil) 500 mg PO DAILY [facility]; Protocol Stop: 02/06/20 09:01 Last Admin: 02/04/20 08:13 Dose: 500 mg Documented by: Amoxicillin (Amoxil) 500 mg PO MoWeFr@1800 [facility]; Protocol Stop: 02/05/20 18:01 Last Admin: 02/02/20 19:42 Dose: 500 mg Documented by: Dextrose (Dextrose 50%) 25 - 50 ml IV UD PRN; Protocol PRN Reason: Hypoglycemia Protocol Stop: 03/02/20 08:44 Doxycycline Hyclate (Vibramycin) 100 mg PO BID@0700,1900 [facility]; Protocol Stop: 02/07/20 07:01 Last Admin: 02/04/20 06:06 Dose: 100 mg Documented by: Ferrous Sulfate (Feosol) 325 mg PO BIDM [facility] Stop: 03/04/20 16:59 Last Admin: 02/04/20 08:10 Dose: 325 mg Documented by: Glucagon (Glucagen) 1 mg IM UD PRN; Protocol PRN Reason: Hypoglycemia Protocol Stop: 03/02/20 08:44 Glucose (Glucose 40%) 15 - 30 gm PO UD PRN; Protocol PRN Reason: Hypoglycemia Protocol Stop: 03/02/20 08:44 Glucose (Dex4 Glucose) 4 - 8 tabs PO UD PRN; Protocol PRN Reason: Hypoglycemia Protocol Stop: 03/02/20 08:44 Heparin Sodium (Porcine) (Heparin Sodium (Porcine)) 5,000 units SQ Q8 [facility] Stop: 03/03/20 13:59 Last Admin: 02/04/20 06:06 Dose: 5,000 units Documented by: Sodium Chloride (Nss 1000ml) 1,000 mls @ 0 mls/hr IV .Q0M PRN PRN Reason: For Hemodialysis Use ONLY Stop: 02/05/20 12:59 Insulin Aspart (Novolog Flexpen) 0 units SC ACHS [facility] Stop: 03/02/20 11:29 Last Admin: 02/04/20 08:59 Dose: Not Given Documented by: Levetiracetam (Keppra) 500 mg PO BID [facility] Stop: 03/01/20 21:38 Last Admin: 02/04/20 08:10 Dose: 500 mg Documented by: Lovastatin (Mevacor) 80 mg PO HS [facility] Stop: 03/01/20 21:38 Last Admin: 02/03/20 21:04 Dose: 80 mg Documented by: Magnesium Oxide (Mag-Ox) 400 mg PO DAILY [facility] Stop: 03/02/20 08:59 Last Admin: 02/04/20 08:12 Dose: 400 mg Documented by: Metoprolol Succinate (Toprol Xl) 50 mg PO DAILY [facility] Stop: 03/02/20 08:59 Last Admin: 02/04/20 08:11 Dose: 50 mg Documented by: Miscellaneous (Carbohydrates For Hypoglycemia) 15 - 30 gm PO UD PRN PRN Reason: Hypoglycemia Treatment Stop: 03/02/20 08:44 Last Admin: 02/03/20 16:41 Dose: 30 gm Documented by: Miscellaneous Information (Consult Glycemic Management Pharmacy) 1 ea N/A UD PRN PRN Reason: Consult Stop: 03/04/20 17:33 Sertraline HCl (Zoloft) 25 mg PO DAILY [facility] Stop: 03/02/20 08:59 Last Admin: 02/04/20 08:11 Dose: 25 mg Documented by: Umeclidinium [place] (Incruse Ellipta) 1 puffs INH DAILY [facility] Stop: 03/02/20 08:59 Last Admin: 02/04/20 08:12 Dose: 1 puffs Documented by: Vitamin D (Vitamin D3) 2,000 units PO DAILY [facility] Stop: 03/02/20 08:59 Last Admin: 02/04/20 08:12 Dose: 2,000 units Documented by: (1) Atrial fibrillation Atrial fibrillation type: paroxysmal Qualified Code(s): I48.0 - Paroxysmal atrial fibrillation
--- NOTE | 2020-02-04 14:34 | Pharmacy Report ---
Pharmacy Glycemic Short Note 2 - Date of Service February 04, 2020 - Glycemic Short BSG Results (Last 24 hours): 02/03/20 02/03/20 02/03/20 16:35 16:35 16:57 POC Glucose 52 L* 51 L* 89 02/03/20 02/04/20 02/04/20 20:09 07:32 11:44 POC Glucose 174 H 137 H 239 H OUTPATIENT ANTIDIABETIC REGIMEN: * Glipizide plus victoza ASSESSMENT: * BSGs over the previous 18hrs improved. Had some hypoglycemia yesterday, likely due to some over correction of novolog. He is ordered a diet and tolerating it. He is on Amox + doxy. PLAN FOR INPATIENT GLYCEMIC CONTROL: * Hold outpatient oral diabetes medications * Bolus insulin - loosened * NovoLog per scale ACHS or Q6hrs while NPO * Goal Range: Low 140 mg/dL - High 180 mg/dL * Correction Factor: 30 mg/dL/unit * Nutritional / Prandial insulin per carb ratio of 1 unit per 10 grams CHO consumed
[2020-02-04] MEDS: LOVASTATIN 20 MG TAB PO SCH (20:32)
[2020-02-05] MEDS: DOXYCYCLINE HYCLATE 100 MG CAP PO SCH ×2 (06:01→18:28)
[2020-02-05] MEDS: HEPARIN SOD 5,000 UNIT/0.5 ML VIAL SQ SCH ×3 (06:01→20:51)
[2020-02-05 06:04] LABS: Hematocrit (blood only) 33.7 % (42-52); Hemoglobin 10.4 g/dL (14.0-18.0); Mean Corpuscular Hemoglobin 27.6 pg (25-34); Mean Corpuscular Hgb Conc 30.9 g/dL (32-36); Mean Corpuscular Volume 89.4 fL (80-100); Mean Platelet Volume 9.6 fL (7.4-10.4); Platelet Count 181 K/uL (130-400); RDW Coefficient of Variation 16.6 % (11.5-14.5); RDW Standard Deviation 54.6 fL (36.4-46.3); Red Blood Count 3.77 M/uL (4.7-6.1); White Blood Count 4.57 K/uL (4.8-10.8)
[2020-02-05 06:35] LABS: BUN Creatinine Ratio 14.1 (10-20); Creatinine Clr Calc Pharmacy 18.6 ml/min; Est GFR (African American) 15.4; Est GFR (Non-African American) 13.3; Magnesium 2.1 mg/dl (1.8-2.4); Potassium 4.6 mmol/L (3.5-5.1)
--- NOTE | 2020-02-05 06:59 | Hospitalist Progress Note ---
Date of Service February 05, 2020 Assessment & Plan (1) Generalized weakness: Improved, continue PT/OT efforts and treatment of pneumonia. (2) Pneumonia: Blood cultures negative and remain afebrile. De-escalated abx to Amoxicillin and doxycycline to finish course. (3) COPD (chronic obstructive pulmonary disease): oxygen dependent at baseline continuously. No increased oxygen needs at home or here. No respiratory distress or wheezing on exam. No evidence of exacerbation at this time. Cont home meds and nebs PRN. (4) Pleural effusion: persistent from prior xrays in the setting of chronic diastolic heart failure. Persistent on CXR today. Will cont hemodialysis with ultrafiltration as tolerated. Of note, 1 dose of Lasix was given with no urine output. Continue with ultrafiltration as main volume status regulator. Low-salt diet. (5) ESRD (end stage renal disease): Nephrology to continue hemodialysis (6) Chronic diastolic heart failure: HD for fluid management as above (7) Diabetes mellitus, type 2: At inpatient goal on Novolog for correction factor and carb ratio. Cont current management. A1C 7.2. Noted hypoglycemic episode, the second of this admission, yesterday. Continue with glycemic pharmacist recommendations moving forward. (8) CARLOS ALBERTO (obstructive sleep apnea): CPAP qHS (9) Atrial fibrillation: Not on any anticoagulation likely secondary to history of subdural hematoma and fall risk. Persistent atrial fibrillation which is rate controlled with Toprol XL. (10) Anemia: Likely multifactorial in etiology including CKD, chronic medical problems, and iron deficiency anemia. Iron supplementation was started based on low iron levels found on blood work today. Prior colonoscopy was performed 02/26/2010 revealing 2 sessile polyps that were resected. Recommendations at that time were to repeat the colonoscopy in 3 to 5 years for surveillance based on pathology results. There are no further studies since that time. Recommend a repeat colonoscopy as outpatient. This recommendation d/w with the patient and his daughter. She verbalized understanding with intent to set that up. (11) DVT prophylaxis: SC Heparin DNR/DNI Dispo-cont hospitalization, plan for SNF when medially stable. ROS-No Headache, No Visual Changes, No Nausea, No Vomiting, No Fever, No Chills, No Neck Pain or Stiffness, No Chest Pain, No Palpitations, No SOB, No MOE, No Cough, No Sputum, No Wheezing, No Abdominal Pain, No Diarrhea, No Hematemesis, No Hemoptysis, No Unexpected Weight Loss, No Flank pain, No Melena, No Hematochezia, No Frequency, No Urgency, No Burning, No Hematuria, No Rashes, No Diaphoresis. Appetite is Normal, wants to get out of here soon Physical Exam Gen-AAO x 3, NAD, Afebrile, on O2 Head-NCAT, EOMI, PERRLA, Anicteric Sclera, No Posterior Pharyngeal Erythema Neck-Supple, No JVD, No Thyromegaly, No Masses, No LAD, No Bruits Lungs-Clear to Auscultation Bilaterally, No Rales, No Rhonchi, No Wheezing, No Crepitus Chest-No S4, +S1, +S2, No S3, No Murmurs, No Rubs, No Gallops, No Ectopy Abdomen-Soft, Bowel Sounds Present, Non Tender, Non Distended, No Hepatomegaly, No Splenomegaly, No Palpable Masses, No Rebound, No Rigidity, No Guarding Musculoskeletal-Full Range of Motion Bilaterally, No CVAT Extremities-No Cyanosis, No Clubbing, No Edema Nuero-Cranial Nerves II-XII grossly intact, Motor WNL, DTRs WNL, Strength WNL, Non Focal Psych-Normal Mood Admission and Anticipated Discharge Date Admission Date: January 31, 2020 Anticipated date of discharge: 02/05/20 Results & Data ([facility]) Vital Signs (Past 12 Hours) Vital Signs Temp Pulse Resp BP Pulse Ox 02/04/20 22:37 94 H 90 02/04/20 22:32 36.9 C 94 H 23 125/71 76 L (1) Atrial fibrillation Atrial fibrillation type: paroxysmal Qualified Code(s): I48.0 - Paroxysmal atrial fibrillation
[2020-02-05] MEDS ORDERED: SODIUM CHLORIDE 0.9% 1000ML 1,000 ML IV PRN (07:00)
[2020-02-05] MEDS: SERTRALINE HCL 50 MG TABLET PO SCH (08:17)
[2020-02-05] MEDS: INSULIN ASPART 100 UNITS/ML 3 ML PEN SC SCH ×4 (08:18→20:51)
[2020-02-05] MEDS: MAGNESIUM OXIDE 400 MG TAB PO SCH (08:20)
[2020-02-05] MEDS: levETIRAcetam 500 MG TAB PO SCH ×2 (08:20→20:51)
[2020-02-05] MEDS: FERROUS SULFATE 325 MG TAB PO SCH ×2 (08:20→17:25)
[2020-02-05] MEDS: UMECLIDINIUM BROMIDE 62.5MCG/BLISTER 7 PUFFS/INHALER INH SCH (08:21)
[2020-02-05] MEDS: AMOXICILLIN 500 MG CAP PO SCH ×2 (08:21→13:42)
[2020-02-05] MEDS: CHOLECALCIFEROL 1,000 UNITS 25 MCG TAB PO SCH (08:22)
[2020-02-05] MEDS: METOPROLOL SUCC 50MG EXT REL TAB PO SCH (13:41)
--- NOTE | 2020-02-05 14:09 | Nephrology Progress Note ---
Date of Service February 05, 2020 Assessment & Plan (1) ESRD (end stage renal disease): Patient with ESRD on dialysis Wednesday using a right upper arm AV fistula. His last dialysis outpatient was on 01/31/2020. Electrolytes are stable today. Patient tolerated dialysis well today for 4 hours with net UF 3 L. Next dialysis will be Wednesday for 4 hours and net UF of 3 L. Okay to supplement diuresis with Lasix as needed (2) Pneumonia: Patient presented with cough and shortness of breath. Chest x-ray showed infiltrate. He is receiving cefepime and doxycycline. Renally dose antibiotics for GFR less than 25 mL/min while on dialysis. (3) Acute and chronic respiratory failure with hypoxia: Multifactorial including pneumonia and pulmonary edema. Will optimize volume status with dialysis. Admission and Anticipated Discharge Date Admission Date: January 31, 2020 Anticipated date of discharge: 02/05/20 Subjective Patient was seen and examined while on dialysis. He feels better today. No shortness of breath. Still globally weak Review of Systems Review of Systems: All systems reviewed & are unremarkable except as noted in HPI & below Physical Exam Physical Exam: General exam: Appears comfortable, no acute distress HEENT: Pupils are equal and reactive to light Neck: No JVD, neck is supple trachea is midline Respiratory system: Clear breath sounds bilaterally. Gastrointestinal: Abdomen is soft, non distended, non tender, bowel sounds are present CVS: Regular rate and rhythm. No murmurs, rubs or gallops Musculoskeletal: No joint or muscle tenderness Extremities: Non tender, no edema, peripheral pulses are present Neuro: Oriented, no tremors, no focal neurological deficits Skin: No rashes Access: Right upper arm AV fistula with good bruit Results & Data ([facility]) Vital Signs (Past 12 Hours) Vital Signs Temp Pulse Pulse Pulse Resp BP BP 02/05/20 13:00 93 H 149/80 H 02/05/20 12:40 84 143/81 H 02/05/20 12:20 81 142/74 H 02/05/20 12:01 36.9 C 70 20 167/87 H 02/05/20 12:00 87 154/88 H 02/05/20 11:40 76 140/91 02/05/20 11:20 83 170/97 H 02/05/20 11:00 69 167/87 H 02/05/20 10:40 94 H 153/85 H 02/05/20 10:20 74 142/61 H 02/05/20 10:00 70 143/73 H 02/05/20 09:40 79 155/73 H 02/05/20 09:17 36.9 C 93 H 02/05/20 08:47 36.9 C 87 22 139/67 Pulse Ox 02/05/20 13:00 02/05/20 12:40 02/05/20 12:20 02/05/20 12:01 94 02/05/20 12:00 02/05/20 11:40 02/05/20 11:20 02/05/20 11:00 02/05/20 10:40 02/05/20 10:20 02/05/20 10:00 02/05/20 09:40 02/05/20 09:17 02/05/20 08:47 93 Laboratory Results 02/05/20 05:39 02/05/20 05:39 WBC 4.57 L RBC 3.77 L MCV 89.4 MCH 27.6 MCHC 30.9 L RDW Std Deviation 54.6 H RDW Coeff of Kiah 16.6 H Plt Count 181 MPV 9.6
[2020-02-05] MEDS: LOVASTATIN 20 MG TAB PO SCH (20:53)
[2020-02-06] MEDS: DOXYCYCLINE HYCLATE 100 MG CAP PO SCH ×2 (06:00→17:43)
[2020-02-06] MEDS: HEPARIN SOD 5,000 UNIT/0.5 ML VIAL SQ SCH ×3 (06:00→20:53)
--- NOTE | 2020-02-06 06:34 | Hospitalist Progress Note ---
Date of Service February 06, 2020 Assessment & Plan (1) Generalized weakness: Improved, continue PT/OT efforts and treatment of pneumonia. RN reports difficulty getting him OOB (2) Pneumonia: Blood cultures negative and remain afebrile. On Amoxicillin and doxycycline to finish course. Today (02/05) is day 7/ (3) COPD (chronic obstructive pulmonary disease): Oxygen dependent at baseline continuously. (4) Pleural effusion: Persistent from prior xrays in the setting of chronic diastolic heart failure. Will cont hemodialysis 3 Liters off 02/04. (5) ESRD (end stage renal disease): Nephrology to continue hemodialysis (6) Chronic diastolic heart failure: HD for fluid management as above (7) Diabetes mellitus, type 2: At inpatient goal on Novolog for correction factor and carb ratio. Cont current management. A1C 7.2. (8) CARLOS ALBERTO (obstructive sleep apnea): CPAP qHS (9) Atrial fibrillation: Not on any anticoagulation likely secondary to history of subdural hematoma and fall risk. Persistent atrial fibrillation which is rate controlled with Toprol XL. (10) Anemia: Likely multifactorial in etiology including CKD, chronic medical problems, and iron deficiency anemia. Iron supplementation was started based on low iron levels found on blood work today. Prior colonoscopy was performed 02/26/2010 revealing 2 sessile polyps that were resected. Recommendations at that time were to repeat the colonoscopy in 3 to 5 years for surveillance based on pathology results. There are no further studies since that time. Recommend a repeat colonoscopy as outpatient. This recommendation d/w with the patient and his daughter. She verbalized understanding with intent to set that up. (11) DVT prophylaxis: SC Heparin DNR/DNI Dispo-SNF auth pending ROS-No Headache, No Visual Changes, No Nausea, No Vomiting, No Fever, No Chills, No Neck Pain or Stiffness, No Chest Pain, No Palpitations, No SOB, No MOE, No Cough, No Sputum, No Wheezing, No Abdominal Pain, No Diarrhea, No Hematemesis, No Hemoptysis, No Unexpected Weight Loss, No Flank pain, No Melena, No Hematochezia, No Frequency, No Urgency, No Burning, No Hematuria, No Rashes, No Diaphoresis. Appetite is Normal, wants to get out of here soon Physical Exam Gen-AAO x 3, NAD, Afebrile, on O2 Head-NCAT, EOMI, PERRLA, Anicteric Sclera, No Posterior Pharyngeal Erythema Neck-Supple, No JVD, No Thyromegaly, No Masses, No LAD, No Bruits Lungs-Clear to Auscultation Bilaterally, No Rales, No Rhonchi, No Wheezing, No Crepitus Chest-No S4, +S1, +S2, No S3, No Murmurs, No Rubs, No Gallops, No Ectopy Abdomen-Soft, Bowel Sounds Present, Non Tender, Non Distended, No Hepatomegaly, No Splenomegaly, No Palpable Masses, No Rebound, No Rigidity, No Guarding Musculoskeletal-Full Range of Motion Bilaterally, No CVAT Extremities-No Cyanosis, No Clubbing, No Edema Nuero-Cranial Nerves II-XII grossly intact, Motor WNL, DTRs WNL, Strength WNL, Non Focal Psych-Normal Mood Admission and Anticipated Discharge Date Admission Date: January 31, 2020 Anticipated date of discharge: 02/05/20 Results & Data ([facility]) Vital Signs (Past 12 Hours) Vital Signs Temp Pulse Resp BP Pulse Ox 02/05/20 23:12 36.9 C 100 H 20 149/63 H 95 (1) Atrial fibrillation Atrial fibrillation type: paroxysmal Qualified Code(s): I48.0 - Paroxysmal atrial fibrillation
[2020-02-06 07:14] LABS: Hematocrit (blood only) 34.2 % (42-52); Hemoglobin 10.3 g/dL (14.0-18.0); Mean Corpuscular Hemoglobin 27.2 pg (25-34); Mean Corpuscular Hgb Conc 30.1 g/dL (32-36); Mean Corpuscular Volume 90.2 fL (80-100); Mean Platelet Volume 9.8 fL (7.4-10.4); Platelet Count 174 K/uL (130-400); RDW Coefficient of Variation 16.5 % (11.5-14.5); RDW Standard Deviation 54.4 fL (36.4-46.3); Red Blood Count 3.79 M/uL (4.7-6.1); White Blood Count 4.32 K/uL (4.8-10.8)
[2020-02-06 08:00] LABS: Albumin Level 2.4 gm/dl (3.4-5.0); BUN Creatinine Ratio 10.9 (10-20); Calcium 8.7 mg/dl (8.5-10.1); Creatinine Clr Calc Pharmacy 22.5 ml/min; Est GFR (African American) 19.5; Est GFR (Non-African American) 16.8; Phosphorus 3.8 mg/dl (2.5-4.9); Potassium 4.4 mmol/L (3.5-5.1)
--- NOTE | 2020-02-06 09:22 | Nephrology Progress Note ---
Date of Service February 06, 2020 Assessment & Plan (1) ESRD (end stage renal disease): Patient with ESRD on dialysis Wednesday using a right upper arm AV fistula. His last dialysis outpatient was on 01/31/2020. Electrolytes are stable today. Patient tolerated dialysis well yesterday for 4 hours with net UF 3 L. Next dialysis will be Wednesday for 4 hours and net UF of 3 L. From renal standpoint patient can be discharged to continue dialysis outpatient. (2) Pneumonia: Patient presented with cough and shortness of breath. Chest x-ray showed infiltrate. He is receiving cefepime and doxycycline. Renally dose antibiotics for GFR less than 25 mL/min while on dialysis. (3) Acute and chronic respiratory failure with hypoxia: Multifactorial including pneumonia and pulmonary edema. Will optimize volume status with dialysis. Patient is also wheezing with active smoking. Advised to quit smoking. Admission and Anticipated Discharge Date Admission Date: January 31, 2020 Anticipated date of discharge: 02/05/20 Subjective Patient feels better today and would like to be discharged. No shortness of breath. He is still on oxygen although he has oxygen at home as well. His strength seems to have improved. He had dialysis yesterday Review of Systems Review of Systems: All systems reviewed & are unremarkable except as noted in HPI & below Physical Exam Physical Exam: General exam: Appears comfortable, no acute distress HEENT: Pupils are equal and reactive to light Neck: No JVD, neck is supple trachea is midline Respiratory system: Wheezing bilaterally. Gastrointestinal: Abdomen is soft, non distended, non tender, bowel sounds are present CVS: Regular rate and rhythm. No murmurs, rubs or gallops Musculoskeletal: No joint or muscle tenderness Extremities: Non tender, no edema, peripheral pulses are present Neuro: Oriented, no tremors, no focal neurological deficits Skin: No rashes Access left forearm AV fistula with good bruit Results & Data ([facility]) Vital Signs (Past 12 Hours) Vital Signs Temp Pulse Resp BP Pulse Ox 02/06/20 06:59 36.7 C 80 20 149/68 H 95 02/05/20 23:12 36.9 C 100 H 20 149/63 H 95 Laboratory Results 02/06/20 06:55 02/06/20 02/06/20 06:55 06:55 WBC 4.32 L RBC 3.79 L MCV 90.2 MCH 27.2 MCHC 30.1 L RDW Std Deviation 54.4 H RDW Coeff of Kiah 16.5 H Plt Count 174 MPV 9.8 Phosphorus 3.8 Albumin 2.4 L
[2020-02-06] MEDS: FERROUS SULFATE 325 MG TAB PO SCH ×2 (09:57→17:43)
[2020-02-06] MEDS: AMOXICILLIN 500 MG CAP PO SCH (09:58)
[2020-02-06] MEDS: CHOLECALCIFEROL 1,000 UNITS 25 MCG TAB PO SCH (09:58)
[2020-02-06] MEDS: UMECLIDINIUM BROMIDE 62.5MCG/BLISTER 7 PUFFS/INHALER INH SCH (09:59)
[2020-02-06] MEDS: SERTRALINE HCL 50 MG TABLET PO SCH (09:59)
[2020-02-06] MEDS: levETIRAcetam 500 MG TAB PO SCH ×2 (09:59→20:52)
[2020-02-06] MEDS: METOPROLOL SUCC 50MG EXT REL TAB PO SCH (10:01)
[2020-02-06] MEDS: INSULIN ASPART 100 UNITS/ML 3 ML PEN SC SCH ×4 (10:06→20:40)
[2020-02-06] MEDS: MAGNESIUM OXIDE 400 MG TAB PO SCH (10:09)
[2020-02-06] MEDS: LOVASTATIN 20 MG TAB PO SCH (20:53)
[2020-02-07] MEDS: HEPARIN SOD 5,000 UNIT/0.5 ML VIAL SQ SCH ×3 (05:54→20:24)
[2020-02-07] MEDS: DOXYCYCLINE HYCLATE 100 MG CAP PO SCH ×2 (05:57→19:44)
[2020-02-07] MEDS ORDERED: SODIUM CHLORIDE 0.9% 1000ML 1,000 ML IV PRN (08:26)
[2020-02-07] MEDS ORDERED: HEPARIN SOD (PORCINE) 1000 UNIT/ML 10 ML VIAL IV SCH (08:30)
[2020-02-07] MEDS ORDERED: EPOETIN ALFA 10,000 UNITS/ML VIAL IV SCH (08:30)
[2020-02-07] MEDS: LIDOCAINE EXT SCH (08:40)
[2020-02-07] MEDS: PRILOCAINE EXT SCH (08:40)
[2020-02-07] MEDS: FERROUS SULFATE 325 MG TAB PO SCH ×2 (08:42→17:24)
[2020-02-07] MEDS: AMOXICILLIN 500 MG CAP PO SCH ×2 (08:43→17:21)
[2020-02-07] MEDS: UMECLIDINIUM BROMIDE 62.5MCG/BLISTER 7 PUFFS/INHALER INH SCH (08:43)
[2020-02-07] MEDS: MAGNESIUM OXIDE 400 MG TAB PO SCH (08:43)
[2020-02-07] MEDS: levETIRAcetam 500 MG TAB PO SCH ×2 (08:44→20:23)
[2020-02-07] MEDS: CHOLECALCIFEROL 1,000 UNITS 25 MCG TAB PO SCH (08:44)
[2020-02-07] MEDS: SERTRALINE HCL 50 MG TABLET PO SCH (08:44)
[2020-02-07] MEDS: METOPROLOL SUCC 50MG EXT REL TAB PO SCH (08:45)
[2020-02-07] MEDS: INSULIN ASPART 100 UNITS/ML 3 ML PEN SC SCH ×4 (08:49→20:23)
--- NOTE | 2020-02-07 13:07 | Hospitalist Progress Note ---
Date of Service February 07, 2020 Assessment & Plan (1) Pneumonia: Chronic cough with improvement overall reported by patient. Cont Amox and doxy, recommend outpatient CXR in 4 weeks to ensure complete resolution of pneumonia. Pt strongly encouraged to quit smoking. (2) Generalized weakness: Cont treatment of chronic comorbidities and pneumonia. Patient has difficulties getting around and has declined rehab. However, family has approached me and asked to delay discharge until they can all get on the same page as they cannot support him at home. Palliative care was consulted to assist coordination of care and help identify treatment goals of the patient. (3) COPD (chronic obstructive pulmonary disease): Oxygen dependent at baseline continuously. Appears stable, however, it is difficult to ascertain this as the patient will not take deep breaths on exam. Some wheezing heard in the right base but otherwise clear throughout. It is difficult to ascertain if he has had any increased sputum production or change in sputum purulence. Will institute DuoNeb therapy to see if this improves things. Do not feel this is consistent with a COPD exacerbation at this time. (4) Pleural effusion: Persistent from prior xrays in the setting of chronic diastolic heart failure. Continue hemodialysis with ultrafiltration as tolerated. (5) ESRD (end stage renal disease): Nephrology to continue hemodialysis (6) Chronic diastolic heart failure: HD for fluid management as above (7) Diabetes mellitus, type 2: At inpatient goal on Novolog for correction factor and carb ratio. Cont current management. A1C 7.2. (8) CARLOS ALBERTO (obstructive sleep apnea): CPAP qHS (9) Atrial fibrillation: Not on any anticoagulation likely secondary to history of subdural hematoma and fall risk. Persistent atrial fibrillation which is rate controlled with Toprol XL. (10) Anemia: Likely multifactorial in etiology including CKD, chronic medical problems, and iron deficiency anemia. Iron supplementation started this admission with strong recommendation to patient and family that he repeat screening colonoscopy as recommended after removal of sessile polyps in 2010 and no followup with new anemia. (11) Smoking: Strongly encouraged to quit not only because it is bad for his health and the health of his daughter who lives with him, but he is also on oxygen which is flammable. He verbalized understanding but states he has no intention of quitting now. (12) DVT prophylaxis: Heparin DNR/DNI Dispo-pending Palliative Care discussion with the family who currently cannot support him at home in his current state. DO Víctor Penalozaisinger Hospitalist Admission and Anticipated Discharge Date Admission Date: January 31, 2020 Anticipated date of discharge: 02/09/20 Subjective Feels well overall, still reports having chronic cough. Patient reports smoking at least 5 cigarettes a day and daughter confirms he smokes more like a pack a day. He states that he is apathetic with respect to his health care and medical issues and just wants to go home. We discussed the fact that he may be coming back to the hospital secondary to weakness and inability to care for himself at home, and he does not want to think about this at this time. I did talk with his daughter who takes care of him at home and was recently undergone a surgery of her own. She is unable to lift or assist him, and reports there is some bug spray and going on at the home right now. There are multiple children who are concerned for the patient's welfare and need to get on the same page with the patient. They are having a family conversation later this afternoon. Palliative care has been consulted to assist in organizing treatment goals that are in line with what the patient wants to do and in line with what the family can support. The patient is currently undergoing hemodialysis at this time. Denies any other symptoms such as chest pain shortness of breath or other issues. Review of Systems Review of Systems: All systems reviewed & are unremarkable except as noted in Subjective Physical Exam Physical Exam: CONSTITUTIONAL: WNWD, vitals as above, generally well- appearing EYES: normal conjunctivae, no scleral icterus ENT: external ear and nose normal, oropharynx clear, MMM RESPIRATORY: rales at left base, wheezing at right base. Exam is limited 2/2 ongoing hemodialysis and positioning of the patient. Also because the patient is not compliant with taking deep breaths for good/accurate auscultation. Normal respiratory effort. CARDIOVASCULAR: regular rate and rhythm, S1 and 2 heard without murmurs, gallops or rubs, no JVD, no peripheral edema. AV fistula accessed at this time GASTROINTESTINAL: soft, nontender, nondistended MUSCULOSKELETAL: strength 5/5 throughout, head is normocephalic and atraumatic, neck supple SKIN: warm and dry NEUROLOGIC: CN 2-12 grossly intact, no gross focal deficits. PSYCHIATRIC: alert cooperative and appears oriented. Answering questions appropriately. Results & Data ([facility]) Vital Signs (Past 12 Hours) Vital Signs Temp Pulse Pulse Resp BP BP Pulse Ox 02/07/20 12:40 87 123/53 L 02/07/20 12:20 81 117/51 L 02/07/20 12:00 77 126/62 02/07/20 11:40 70 129/52 L 02/07/20 11:20 75 127/60 02/07/20 11:00 89 122/67 02/07/20 10:40 83 133/61 02/07/20 10:20 79 128/61 02/07/20 10:00 85 134/53 L 02/07/20 09:40 72 138/60 02/07/20 09:38 77 140/72 02/07/20 09:14 36.4 C L 90 02/07/20 07:00 36.5 C 81 18 127/62 91 Medications Administered Current Inpatient Medications Albuterol (Ventolin Hfa) 1 puffs INH QID PRN PRN Reason: Shortness Of Breath Stop: 03/01/20 21:38 Amoxicillin (Amoxil) 500 mg PO DAILY [facility]; Protocol Stop: 02/13/20 23:59 Last Admin: 02/07/20 08:43 Dose: 500 mg Documented by: Amoxicillin (Amoxil) 500 mg PO MoWeFr@1800 [facility]; Protocol Stop: 02/13/20 23:59 Last Admin: 02/05/20 13:42 Dose: 500 mg Documented by: Dextrose (Dextrose 50%) 25 - 50 ml IV UD PRN; Protocol PRN Reason: Hypoglycemia Protocol Stop: 03/02/20 08:44 Doxycycline Hyclate (Vibramycin) 100 mg PO BID@0700,1900 [facility]; Protocol Stop: 02/13/20 23:59 Last Admin: 02/07/20 05:57 Dose: 100 mg Documented by: Epoetin Ayad (Procrit) 10,000 units IV TODAY@0830 [facility] Stop: 02/07/20 18:00 Last Admin: 02/07/20 10:38 Dose: 10,000 units Documented by: Ferrous Sulfate (Feosol) 325 mg PO BIDM [facility] Stop: 03/04/20 16:59 Last Admin: 02/07/20 08:42 Dose: 325 mg Documented by: Glucagon (Glucagen) 1 mg IM UD PRN; Protocol PRN Reason: Hypoglycemia Protocol Stop: 03/02/20 08:44 Glucose (Glucose 40%) 15 - 30 gm PO UD PRN; Protocol PRN Reason: Hypoglycemia Protocol Stop: 03/02/20 08:44 Glucose (Dex4 Glucose) 4 - 8 tabs PO UD PRN; Protocol PRN Reason: Hypoglycemia Protocol Stop: 03/02/20 08:44 Heparin Sodium (Porcine) (Heparin Sodium (Porcine)) 5,000 units SQ Q8 [facility] Stop: 03/03/20 13:59 Last Admin: 02/07/20 05:54 Dose: 5,000 units Documented by: Heparin Sodium (Porcine) (Heparin Iv Bolus) 2,000 units IV TODAY@0830 [facility] Stop: 02/07/20 18:00 Last Admin: 02/07/20 09:22 Dose: Not Given Documented by: Sodium Chloride (Nss 1000ml) 1,000 mls @ 0 mls/hr IV .Q0M PRN PRN Reason: For Hemodialysis Use ONLY Stop: 02/07/20 14:25 Insulin Aspart (Novolog Flexpen) 0 units SC ACHS [facility] Stop: 03/02/20 11:29 Last Admin: 02/07/20 12:56 Dose: Not Given Documented by: Levetiracetam (Keppra) 500 mg PO BID [facility] Stop: 03/01/20 21:38 Last Admin: 02/07/20 08:44 Dose: 500 mg Documented by: Lidocaine/Prilocaine (Emla 2.5% Crm) 1 ea EXT MoWeFr@0600 [facility] Stop: 03/08/20 05:59 Last Admin: 02/07/20 08:40 Dose: 1 ea Documented by: Lovastatin (Mevacor) 80 mg PO HS [facility] Stop: 03/01/20 21:38 Last Admin: 02/06/20 20:53 Dose: 80 mg Documented by: Magnesium Oxide (Mag-Ox) 400 mg PO DAILY [facility] Stop: 03/02/20 08:59 Last Admin: 02/07/20 08:43 Dose: 400 mg Documented by: Metoprolol Succinate (Toprol Xl) 50 mg PO DAILY [facility] Stop: 03/02/20 08:59 Last Admin: 02/07/20 08:45 Dose: Not Given Documented by: Miscellaneous (Carbohydrates For Hypoglycemia) 15 - 30 gm PO UD PRN PRN Reason: Hypoglycemia Treatment Stop: 03/02/20 08:44 Last Admin: 02/03/20 16:41 Dose: 30 gm Documented by: Miscellaneous Information (Consult Glycemic Management Pharmacy) 1 ea N/A UD PRN PRN Reason: Consult Stop: 03/04/20 17:33 Sertraline HCl (Zoloft) 25 mg PO DAILY [facility] Stop: 03/02/20 08:59 Last Admin: 02/07/20 08:44 Dose: 25 mg Documented by: Umeclidinium [place] (Incruse Ellipta) 1 puffs INH DAILY [facility] Stop: 03/02/20 08:59 Last Admin: 02/07/20 08:43 Dose: 1 puffs Documented by: Vitamin D (Vitamin D3) 2,000 units PO DAILY [facility] Stop: 03/02/20 08:59 Last Admin: 02/07/20 08:44 Dose: 2,000 units Documented by: (1) Atrial fibrillation Atrial fibrillation type: paroxysmal Qualified Code(s): I48.0 - Paroxysmal atrial fibrillation
--- NOTE | 2020-02-07 14:07 | Nephrology Progress Note ---
Date of Service February 07, 2020 Assessment & Plan (1) ESRD (end stage renal disease): Patient with ESRD on dialysis Wednesday using a right upper arm AV fistula. His last dialysis outpatient was on 01/31/2020. Electrolytes are stable today. Patient tolerating dialysis well today for 4 hours with net UF 3 L. Next dialysis will be Wednesday for 4 hours and net UF of 3 L. From renal standpoint patient can be discharged to continue dialysis outpatient. (2) Pneumonia: Patient presented with cough and shortness of breath. Chest x-ray showed infiltrate. He is receiving cefepime and doxycycline. Renally dose antibiotics for GFR less than 25 mL/min while on dialysis. (3) Acute and chronic respiratory failure with hypoxia: Multifactorial including pneumonia and pulmonary edema. Will optimize volume status with dialysis. Patient is also wheezing with active smoking. Advised to quit smoking. Admission and Anticipated Discharge Date Admission Date: January 31, 2020 Anticipated date of discharge: 02/05/20 Subjective Patient was seen and examined while on HD this morning. No SOB. Strength is better. he is eager to be discharged Review of Systems Review of Systems: All systems reviewed & are unremarkable except as noted in HPI & below Physical Exam Physical Exam: General exam: Appears comfortable, no acute distress HEENT: Pupils are equal and reactive to light Neck: No JVD, neck is supple trachea is midline Respiratory system: Clear breath sounds bilaterally. Gastrointestinal: Abdomen is soft, non distended, non tender, bowel sounds are present CVS: Regular rate and rhythm. No murmurs, rubs or gallops Musculoskeletal: No joint or muscle tenderness Extremities: Non tender, no edema, peripheral pulses are present Neuro: Oriented, no tremors, no focal neurological deficits Skin: No rashes Access: right AVF Results & Data ([facility]) Vital Signs (Past 12 Hours) Vital Signs Temp Pulse Pulse Resp BP BP Pulse Ox 02/07/20 13:20 76 127/63 02/07/20 13:00 76 137/62 02/07/20 12:40 87 123/53 L 02/07/20 12:20 81 117/51 L 02/07/20 12:00 77 126/62 02/07/20 11:40 70 129/52 L 02/07/20 11:20 75 127/60 02/07/20 11:00 89 122/67 02/07/20 10:40 83 133/61 02/07/20 10:20 79 128/61 02/07/20 10:00 85 134/53 L 02/07/20 09:40 72 138/60 02/07/20 09:38 77 140/72 02/07/20 09:14 36.4 C L 90 02/07/20 07:00 36.5 C 81 18 127/62 91 Laboratory Results 02/06/20 06:55
--- NOTE | 2020-02-07 15:03 | Pharmacy Report ---
Pharmacy Glycemic Short Note 2 - Date of Service February 07, 2020 - Glycemic Short BSG Results (Last 24 hours): 02/06/20 02/06/20 02/07/20 16:33 20:36 07:20 POC Glucose 137 H 137 H 108 H 02/07/20 11:45 POC Glucose 131 H OUTPATIENT ANTIDIABETIC REGIMEN: * Glipizide 5mg PO BID * Victoza 1.2mg SQ daily * HbA1c: unreliable in the setting of intermittent hemodialysis ASSESSMENT: * Mr Yuan has been requiring no more than 5 units of insulin per day for the past few days. * BSGs have been well-controlled. * No changes required at this time. PLAN FOR INPATIENT GLYCEMIC CONTROL: * Hold outpatient oral diabetes medications * Bolus insulin - * NovoLog per scale ACHS or Q6hrs while NPO * Goal Range: Low 140 mg/dL - High 180 mg/dL * Correction Factor: 30 mg/dL/unit * Nutritional / Prandial insulin per carb ratio of 1 unit per 10 grams CHO consumed DISCHARGE RECOMMENDATIONS: * Suspect that patient may resume home regimen on discharge, unless he reports significant hyperglycemia or having episodes of hypoglycemia.
[2020-02-07] MEDS: LOVASTATIN 20 MG TAB PO SCH (20:22)
[2020-02-08] MEDS: HEPARIN SOD 5,000 UNIT/0.5 ML VIAL SQ SCH ×3 (06:00→21:08)
[2020-02-08] MEDS: DOXYCYCLINE HYCLATE 100 MG CAP PO SCH ×2 (06:01→19:49)
[2020-02-08] MEDS: ALBUT/IPRATROP 3MG/0.5MG NEB 3 ML VIAL NEB SCH ×4 (07:30→19:39)
[2020-02-08] MEDS: SERTRALINE HCL 50 MG TABLET PO SCH (07:43)
[2020-02-08] MEDS: METOPROLOL SUCC 50MG EXT REL TAB PO SCH (07:44)
[2020-02-08] MEDS: FERROUS SULFATE 325 MG TAB PO SCH ×2 (07:45→17:13)
[2020-02-08] MEDS: AMOXICILLIN 500 MG CAP PO SCH (07:45)
[2020-02-08] MEDS: MAGNESIUM OXIDE 400 MG TAB PO SCH (07:45)
[2020-02-08] MEDS: CHOLECALCIFEROL 1,000 UNITS 25 MCG TAB PO SCH (07:45)
[2020-02-08] MEDS: levETIRAcetam 500 MG TAB PO SCH ×2 (07:45→20:01)
[2020-02-08] MEDS: UMECLIDINIUM BROMIDE 62.5MCG/BLISTER 7 PUFFS/INHALER INH SCH (07:47)
[2020-02-08] MEDS: INSULIN ASPART 100 UNITS/ML 3 ML PEN SC SCH ×4 (08:37→21:09)
[2020-02-08] MEDS: POLYETHYLENE (MIRALAX) 17 GM PACK PO SCH (09:51)
[2020-02-08] MEDS: DOCUSATE SODIUM 100 MG CAP PO SCH ×2 (09:52→20:01)
--- NOTE | 2020-02-08 15:42 | Pharmacy Report ---
Pharmacy Glycemic Short Note 2 - Date of Service February 08, 2020 - Glycemic Short BSG Results (Last 24 hours): 02/07/20 02/07/20 02/08/20 16:36 20:21 07:46 POC Glucose 238 H 194 H 130 H 02/08/20 12:01 POC Glucose 148 H OUTPATIENT ANTIDIABETIC REGIMEN: * Glipizide 5mg PO BID * Victoza 1.2mg SQ daily * HbA1c: unreliable in the setting of intermittent hemodialysis ASSESSMENT: 02/08/20: * BSGs became elevated last evening. * Slight changes made to Novolog parameters today. 02/07/20 * Mr Yuan has been requiring no more than 5 units of insulin per day for the past few days. * BSGs have been well-controlled. * No changes required at this time. PLAN FOR INPATIENT GLYCEMIC CONTROL: * Hold outpatient oral diabetes medications * Bolus insulin - * NovoLog per scale ACHS or Q6hrs while NPO * Goal Range: Low 120 mg/dL - High 150 mg/dL * Correction Factor: 25 mg/dL/unit * Nutritional / Prandial insulin per carb ratio of 1 unit per 9 grams CHO co nsumed DISCHARGE RECOMMENDATIONS: * Suspect that patient may resume home regimen on discharge, unless he reports significant hyperglycemia or having episodes of hypoglycemia.
--- NOTE | 2020-02-08 16:27 | Palliative Care Consultation ---
Date of Consultation February 08, 2020 Assessment & Plan (1) Goals of care, counseling/discussion: Patient is a 79-year-old male with a past medical history significant for renal failure on HD, COPD-current smoking, CARLOS ALBERTO-not tolerant of CPAP, A. fib-not on AC, diabetes and CHF who came to the emergency room on 01/30 with increased weakness and a fall after hemodialysis. Patient also had a several day history of cough and shortness of breath. Chest x-ray was suggestive of pneumonia with bilateral pleural effusions left greater than right. Patient was admitted and started on IV antibiotics as well as continued dialysis for fluid control. Patient is awake and alert and oriented x4, no acute distress. Patient states he is doing "okay"-wanting to return home. Patient now understands that returning home with his daughter to care for him is not an option and that his daughters to have abdominal surgery soon. Patient now agreeable to rehab at [facility] to increase strength and improve ambulation so he can return home with his daughter. Patient has 3 daughters and 1 son. Patient lives with his daughter, Jyotsna. Patient states he has expanse directives and named his daughter Fani as healthcare surrogate-states she has paperwork stating such. Patient's current CODE STATUS is DNR-completed a POLST form with patient stating DO NOT RESUSCITATE-continued conversation patient states he would not want tube feeding if he was unable to eat or IV fluids if he was not able to drink. Patient would not want intubation even for short-term. Patient is agreeable to antibiotics if needed. -Goals of care-patient wishes to return home, agreeable to short-term rehab stay at [facility] to improve strength and improve gait. Patient wishes to remain a DNR-POLST form completed and scanned in the EMR-patient would not want a feeding tube or IV fluids if he were unable to eat or drink. -PNA-patient transition to p.o. doxycycline amoxicillin -COPD-patient on home inhaler and PRN duo nebs, continue home O2 at 3 L -Pleural effusions-fluid management via hemodialysis-3 L removed on 02/06, next dialysis on 02/08. Chest x-ray on 02/02 showed no significant change from admission on 01/30-continues with cardiomegaly and volume overload -End-stage renal disease-on HD, continue home dialysis schedule -CHF-fluid status managed by HD -A. fib-rate controlled with metoprolol, not on AC -CARLOS ALBERTO-on O2, does not tolerate CPAP -Current smoker-patient not interested in smoking cessation counseling. (2) Pneumonia: (3) COPD (chronic obstructive pulmonary disease): (4) Pleural effusion: (5) ESRD (end stage renal disease): (6) Acute on chronic diastolic (congestive) heart failure: (7) Atrial fibrillation: Atrial fibrillation type: paroxysmal Qualified Code(s): I48.0 - Paroxysmal atrial fibrillation (8) Smoking: History of Present Illness Reason for Consultation: Address goals of care Requesting Physician: Dr. Stewart Attending Physician: Isabel Stewart, DO History of Present Illness Patient is a 79-year-old male with a past medical history significant for renal failure on HD, COPD-current smoking, CARLOS ALBERTO-not tolerant of CPAP, A. fib-not on AC, diabetes and CHF who came to the emergency room on 01/30 with increased weakness and a fall after hemodialysis. Patient also had a several day history of cough and shortness of breath. Chest x-ray was suggestive of pneumonia with bilateral pleural effusions left greater than right. Patient was admitted and started on IV antibiotics as well as continued dialysis for fluid control. Patient is awake and alert and oriented x4, no acute distress. Patient states he is doing "okay"-wanting to return home. Patient now understands that returning home with his daughter to care for him is not an option and that his daughters to have abdominal surgery soon. Patient now agreeable to rehab at [facility] to increase strength and improve ambulation so he can return home with his daughter. Patient has 3 daughters and 1 son. Patient lives with his daughter, Jyotsna. Patient states he has expanse directives and named his daughter Fani as healthcare surrogate-states she has paperwork stating such. Patient's current CODE STATUS is DNR-completed a POLST form with patient stating DO NOT RESUSCITATE-continued conversation patient states he would not want tube feeding if he was unable to eat or IV fluids if he was not able to drink. Patient would not want intubation even for short-term. Patient is agreeable to antibiotics if needed.. Allergies Allergy/AdvReac Type Severity Reaction Status Date / Time codeine AdvReac Intermediate NAUSEA Verified 01/31/20 17:09 Home Medications Home Medications Medication Instructions Recorded Confirmed Type Victoza 2-Fernando 1.2 mg SUBCUT DAILY 02/09/19 01/31/20 History cholecalciferol (vitamin D3) 2,000 units PO DAILY 02/09/19 01/31/20 History lovastatin 80 mg PO HS 02/09/19 01/31/20 History levetiracetam 500 mg PO BID 05/10/19 01/31/20 History metoprolol succinate 50 mg PO DAILY 11/21/19 01/31/20 History sertraline 25 mg PO DAILY 11/21/19 01/31/20 History glipizide 5 mg PO BID #60 tab 11/28/19 01/31/20 Rx albuterol sulfate 90 mcg/actuation 1 puffs INH QID PRN 01/17/20 01/31/20 History aerosol inhaler magnesium oxide 400 mg PO DAILY 01/17/20 01/31/20 History tiotropium bromide [Spiriva 2 puff INHALATION DAILY 01/31/20 01/31/20 History Respimat] Patient History Medical History AAA (abdominal aortic aneurysm) Asthma with COPD Atrial fibrillation (Chronic) dx 2015 - no longer taking warfarin - recent fall w/ brain bleed 03/2019 Chronic diastolic heart failure Chronic systolic heart failure (Chronic) CKD (chronic kidney disease), stage IV Daytime sleepiness Diabetes mellitus, type 2 (Chronic) Dyslipidemia (Chronic) ESRD (end stage renal disease) History of CVA (cerebrovascular accident) (Chronic) 2015 - dx w/ a.fib - [facility] - no deficits History of seizure (Resolved) history obtained from dtr - unsure of last seizure 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 - fall [place] 03/30/2019 [place] [facility] [place] HTN (hypertension), benign (Chronic) Nocturnal hypoxemia CARLOS ALBERTO (obstructive sleep apnea) (Chronic) does not tolerate CPAP Severe chronic obstructive pulmonary disease Tobacco use disorder (Chronic) Surgical History History of back surgery (Resolved) History of cataract surgery (Chronic) History of colonoscopy (Chronic) History of esophagogastroduodenoscopy (EGD) (Chronic) History of lumbar spinal fusion (Chronic) x 2 History of tooth extraction (Chronic) Family History Mother Cancer Brother Diabetes Heart disease Social History Preferred Language: Serbian Communication Ability: Effective 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 Positive for cough and generalized weakness Physical Exam Physical Exam: PE: Patient awake alert, no acute distress at rest HEENT: Disconjugate gaze, hearing grossly within normal limits Respirations unlabored at rest, diminished breath sounds bilaterally all lynch, on O2 CV: Rate controlled, no edema Abdomen: Soft, nontender Extremities: Generalized weakness Neuro: Alert and oriented x4 Psych: Appropriate mood and affect Results & Data Vital Signs (Past 12 Hours) Vital Signs Temp Pulse Pulse Resp BP Pulse Ox 02/08/20 15:56 98.1 F 82 20 149/66 H 82 L 02/08/20 15:25 65 18 92 02/08/20 11:28 85 18 96 02/08/20 07:34 87 18 97 02/08/20 07:16 98.4 F 86 18 148/69 H 95 PG Care Time/CCT Total # of Minutes Spent Total Time Spent with Patient: Total time spent 60 minutes with greater than 50% of the time spent at bedside reviewing goals of care and completing POLST form Coding Level of Care Code 31156 Inpt Consult Level 2 Diagnoses Goals of care, counseling/discussion Z71.89 Pneumonia J18.9 COPD (chronic obstructive pulmonary disease) J44.9 Pleural effusion J90 ESRD (end stage renal disease) N18.6 Acute on chronic diastolic (congestive) heart failure I50.33 Atrial fibrillation I48.0 Atrial fibrillation type: paroxysmal Smoking F17.200 Time Spent (min) 60
--- NOTE | 2020-02-08 16:59 | Nephrology Progress Note ---
Date of Service February 08, 2020 Assessment & Plan (1) ESRD (end stage renal disease): Patient with ESRD on dialysis Wednesday using a right upper arm AV fistula. His last dialysis outpatient was on 01/31/2020. Electrolytes are stable today. Patient tolerated dialysis well yesterday for 4 hours with net UF 3 L. Next dialysis will be Wednesday for 4 hours and net UF of 3 L. From renal standpoint patient can be discharged to continue dialysis outpatient. (2) Pneumonia: Patient presented with cough and shortness of breath. Chest x-ray showed infiltrate. He is receiving cefepime and doxycycline. Renally dose antibiotics for GFR less than 25 mL/min while on dialysis. (3) Acute and chronic respiratory failure with hypoxia: Multifactorial including pneumonia and pulmonary edema. Will optimize volume status with dialysis. Patient is also wheezing with active smoking. Advised to quit smoking. Admission and Anticipated Discharge Date Admission Date: January 31, 2020 Anticipated date of discharge: 02/09/20 Subjective Feels better. No SOB. Able to sit and walk now. Had HD yesterday Review of Systems Review of Systems: All systems reviewed & are unremarkable except as noted in HPI & below Physical Exam Physical Exam: General exam: Appears comfortable, no acute distress HEENT: Pupils are equal and reactive to light Neck: No JVD, neck is supple trachea is midline Respiratory system: Clear breath sounds bilaterally. Gastrointestinal: Abdomen is soft, non distended, non tender, bowel sounds are p resent CVS: Regular rate and rhythm. No murmurs, rubs or gallops Musculoskeletal: No joint or muscle tenderness Extremities: Non tender, no edema, peripheral pulses are present Neuro: Oriented, no tremors, no focal neurological deficits Skin: No rashes Access: right AVF good bruit Results & Data ([facility]) Vital Signs (Past 12 Hours) Vital Signs Temp Pulse Pulse Resp BP Pulse Ox 02/08/20 15:56 36.7 C 82 20 149/66 H 82 L 02/08/20 15:25 65 18 92 02/08/20 11:28 85 18 96 02/08/20 07:34 87 18 97 02/08/20 07:16 36.9 C 86 18 148/69 H 95 Laboratory Results 02/06/20 06:55
[2020-02-08] MEDS: LOVASTATIN 20 MG TAB PO SCH (20:01)
--- NOTE | 2020-02-08 21:13 | Hospitalist Progress Note ---
Date of Service February 08, 2020 Assessment & Plan (1) Pneumonia: Chronic cough with improvement overall reported by patient. Cont Amox and doxy, recommend outpatient CXR in 4 weeks to ensure complete resolution of pneumonia. Pt strongly encouraged to quit smoking. (2) Generalized weakness: Cont treatment of chronic comorbidities and pneumonia. Patient has difficulties getting around and has declined rehab but is now willing to go. Palliative care was consulted to assist coordination of care and help identify treatment goals of the patient. (3) COPD (chronic obstructive pulmonary disease): Oxygen dependent at baseline continuously. Lungs appear more clear today despite poor air movement in general and poor effort in general. For now plans for discharge tomorrow so continue duo nebs until that time. (4) Pleural effusion: Persistent from prior xrays in the setting of chronic diastolic heart failure. Continue hemodialysis with ultrafiltration as tolerated. (5) CARLOS ALBERTO (obstructive sleep apnea): high risk for this although he has not formally completed his polysomnogram ordered by pulmonology. Set up BIPAP overnight. (6) ESRD (end stage renal disease): Nephrology to continue hemodialysis (7) Chronic diastolic heart failure: HD for fluid management as above (8) Diabetes mellitus, type 2: At inpatient goal on Novolog for correction factor and carb ratio. Cont current management. A1C 7.2. (9) Atrial fibrillation: Not on any anticoagulation likely secondary to history of subdural hematoma and fall risk. Persistent atrial fibrillation which is rate controlled with Toprol XL. (10) Anemia: Likely multifactorial in etiology including CKD, chronic medical problems, and iron deficiency anemia. Iron supplementation started this admission with strong recommendation to patient and family that he repeat screening colonoscopy as recommended after removal of sessile polyps in 2009 and no followup with new anemia. (11) Smoking: Strongly encouraged to quit not only because it is bad for his health and the health of his daughter who lives with him, but he is also on oxygen which is flammable. He verbalized understanding but states he has no intention of quitting now. (12) DVT prophylaxis: Heparin DNR/DNI [email or web address] for a short term rehab stay. Isabel Stewart [facility] and Anticipated Discharge Date Admission Date: January 31, 2020 Anticipated date of discharge: 02/09/20 Subjective Patient feels well today reports an improvement in cough and generally feels well. He is a very poor historian with very poor insight into his disease process. He is awaiting authorization at [facility] hopefully tomorrow. Generalized weakness is noted. Patient tolerating p.o. No other issues at this time. Review of Systems Review of Systems: All systems reviewed & are unremarkable except as noted in Subjective Physical Exam Physical Exam: CONSTITUTIONAL: WNWD, vitals as above, generally well- appearing EYES: normal conjunctivae, no scleral icterus RESPIRATORY: Clear lungs to auscultation bilaterally. normal respiratory effort. CARDIOVASCULAR: regular rate and rhythm, S1 and 2 heard without murmurs, gallops or rubs, no JVD, no peripheral edema. GASTROINTESTINAL: soft, nontender, nondistended MUSCULOSKELETAL: strength 5/5 throughout, head is normocephalic and atraumatic, neck supple SKIN: warm and dry NEUROLOGIC: CN 2-12 grossly intact, no gross focal deficits. PSYCHIATRIC: alert cooperative and appears oriented. Answering questions appropriately. Results & Data ([facility]) Vital Signs (Past 12 Hours) Vital Signs Temp Pulse Pulse Resp BP Pulse Ox 02/08/20 19:41 90 16 98 02/08/20 15:56 36.7 C 82 20 149/66 H 82 L 02/08/20 15:25 65 18 92 02/08/20 11:28 85 18 96 Medications Administered Current Inpatient Medications Albuterol (Ventolin Hfa) 1 puffs INH QID PRN PRN Reason: Shortness Of Breath Stop: 03/01/20 21:38 Albuterol (Duoneb) 3 ml NEB QIDR [facility] Stop: 03/09/20 06:59 Last Admin: 02/08/20 19:39 Dose: 3 ml Documented by: Amoxicillin (Amoxil) 500 mg PO DAILY [facility]; Protocol Stop: 02/13/20 23:59 Last Admin: 02/08/20 07:45 Dose: 500 mg Documented by: Amoxicillin (Amoxil) 500 mg PO MoWeFr@1800 [facility]; Protocol Stop: 02/13/20 23:59 Last Admin: 02/07/20 17:21 Dose: 500 mg Documented by: Dextrose (Dextrose 50%) 25 - 50 ml IV UD PRN; Protocol PRN Reason: Hypoglycemia Protocol Stop: 03/02/20 08:44 Docusate Sodium (Colace) 100 mg PO BID [facility] Stop: 03/09/20 08:59 Last Admin: 02/08/20 20:01 Dose: 100 mg Documented by: Doxycycline Hyclate (Vibramycin) 100 mg PO BID@0700,1900 [facility]; Protocol Stop: 02/13/20 23:59 Last Admin: 02/08/20 19:49 Dose: 100 mg Documented by: Ferrous Sulfate (Feosol) 325 mg PO BIDM [facility] Stop: 03/04/20 16:59 Last Admin: 02/08/20 17:13 Dose: 325 mg Documented by: Glucagon (Glucagen) 1 mg IM UD PRN; Protocol PRN Reason: Hypoglycemia Protocol Stop: 03/02/20 08:44 Glucose (Glucose 40%) 15 - 30 gm PO UD PRN; Protocol PRN Reason: Hypoglycemia Protocol Stop: 03/02/20 08:44 Glucose (Dex4 Glucose) 4 - 8 tabs PO UD PRN; Protocol PRN Reason: Hypoglycemia Protocol Stop: 03/02/20 08:44 Heparin Sodium (Porcine) (Heparin Sodium (Porcine)) 5,000 units SQ Q8 [facility] Stop: 03/03/20 13:59 Last Admin: 02/08/20 21:08 Dose: 5,000 units Documented by: Insulin Aspart (Novolog Flexpen) 0 units SC ACHS [facility] Stop: 03/02/20 11:29 Last Admin: 02/08/20 21:09 Dose: 1 units Documented by: Levetiracetam (Keppra) 500 mg PO BID [facility] Stop: 03/01/20 21:38 Last Admin: 02/08/20 20:01 Dose: 500 mg Documented by: Lidocaine/Prilocaine (Emla 2.5% Crm) 1 ea EXT MoWeFr@0600 [facility] Stop: 03/08/20 05:59 Last Admin: 02/07/20 08:40 Dose: 1 ea Documented by: Lovastatin (Mevacor) 80 mg PO HS [facility] Stop: 03/01/20 21:38 Last Admin: 02/08/20 20:01 Dose: 80 mg Documented by: Magnesium Oxide (Mag-Ox) 400 mg PO DAILY [facility] Stop: 03/02/20 08:59 Last Admin: 02/08/20 07:45 Dose: 400 mg Documented by: Metoprolol Succinate (Toprol Xl) 50 mg PO DAILY [facility] Stop: 03/02/20 08:59 Last Admin: 02/08/20 07:44 Dose: 50 mg Documented by: Miscellaneous (Carbohydrates For Hypoglycemia) 15 - 30 gm PO UD PRN PRN Reason: Hypoglycemia Treatment Stop: 03/02/20 08:44 Last Admin: 02/03/20 16:41 Dose: 30 gm Documented by: Miscellaneous Information (Consult Glycemic Management Pharmacy) 1 ea N/A UD PRN PRN Reason: Consult Stop: 03/04/20 17:33 Polyethylene Glycol (Miralax Powder Packet) 17 gm PO DAILY [facility] Stop: 03/09/20 08:59 Last Admin: 02/08/20 09:51 Dose: 17 gm Documented by: Sertraline HCl (Zoloft) 25 mg PO DAILY [facility] Stop: 03/02/20 08:59 Last Admin: 02/08/20 07:43 Dose: 25 mg Documented by: Umeclidinium [place] (Incruse Ellipta) 1 puffs INH DAILY [facility] Stop: 03/02/20 08:59 Last Admin: 02/08/20 07:47 Dose: 1 puffs Documented by: Vitamin D (Vitamin D3) 2,000 units PO DAILY [facility] Stop: 03/02/20 08:59 Last Admin: 02/08/20 07:45 Dose: 2,000 units Documented by: (1) Atrial fibrillation Atrial fibrillation type: paroxysmal Qualified Code(s): I48.0 - Paroxysmal atrial fibrillation
[2020-02-09] MEDS: HEPARIN SOD 5,000 UNIT/0.5 ML VIAL SQ SCH ×2 (06:09→14:34)
[2020-02-09] MEDS: PRILOCAINE EXT SCH (06:10)
[2020-02-09] MEDS: LIDOCAINE EXT SCH (06:10)
[2020-02-09 06:39] LABS: Hematocrit (blood only) 32.6 % (42-52); Mean Corpuscular Hemoglobin 27.4 pg (25-34); Mean Corpuscular Hgb Conc 30.7 g/dL (32-36); Mean Corpuscular Volume 89.3 fL (80-100); Mean Platelet Volume 9.7 fL (7.4-10.4); Platelet Count 184 K/uL (130-400); RDW Coefficient of Variation 16.7 % (11.5-14.5); RDW Standard Deviation 53.5 fL (36.4-46.3); Red Blood Count 3.65 M/uL (4.7-6.1); White Blood Count 5.19 K/uL (4.8-10.8)
[2020-02-09] MEDS: ALBUT/IPRATROP 3MG/0.5MG NEB 3 ML VIAL NEB SCH ×2 (06:58→11:24)
[2020-02-09] MEDS: DOXYCYCLINE HYCLATE 100 MG CAP PO SCH (07:00)
[2020-02-09 07:16] LABS: BUN Creatinine Ratio 11.1 (10-20); Calcium 8.6 mg/dl (8.5-10.1); Creatinine Clr Calc Pharmacy 21.3 ml/min; Est GFR (African American) 18.7; Est GFR (Non-African American) 16.2; Magnesium 1.9 mg/dl (1.8-2.4); Potassium 3.8 mmol/L (3.5-5.1)
[2020-02-09 07:17] LABS: Phosphorus 3.3 mg/dl (2.5-4.9)
[2020-02-09] MEDS: CHOLECALCIFEROL 1,000 UNITS 25 MCG TAB PO SCH (08:27)
[2020-02-09] MEDS: AMOXICILLIN 500 MG CAP PO SCH (08:28)
[2020-02-09] MEDS: MAGNESIUM OXIDE 400 MG TAB PO SCH (08:28)
[2020-02-09] MEDS: SERTRALINE HCL 50 MG TABLET PO SCH (08:28)
[2020-02-09] MEDS: POLYETHYLENE (MIRALAX) 17 GM PACK PO SCH (08:29)
[2020-02-09] MEDS: FERROUS SULFATE 325 MG TAB PO SCH (08:29)
[2020-02-09] MEDS: DOCUSATE SODIUM 100 MG CAP PO SCH (08:29)
[2020-02-09] MEDS: METOPROLOL SUCC 50MG EXT REL TAB PO SCH (08:31)
[2020-02-09] MEDS: levETIRAcetam 500 MG TAB PO SCH (08:32)
[2020-02-09] MEDS: INSULIN ASPART 100 UNITS/ML 3 ML PEN SC SCH ×3 (08:33→14:37)
[2020-02-09] MEDS ORDERED: SODIUM CHLORIDE 0.9% 1000ML 1,000 ML IV PRN (08:36)
[2020-02-09] MEDS ORDERED: HEPARIN SOD (PORCINE) 1000 UNIT/ML 10 ML VIAL IV ONE (08:36)
[2020-02-09] MEDS: UMECLIDINIUM BROMIDE 62.5MCG/BLISTER 7 PUFFS/INHALER INH SCH (09:07)
--- NOTE | 2020-02-09 14:26 | Discharge Summary ---
Date of Service February 09, 2020 Admission HPI Per Admitting Provider He is a 79-year-old male with significant past medical history of ESRD on hemodialysis, COPD on home oxygen at night, type 2 diabetes on insulin, depression, atrial fibrillation not on any anticoagulation, CARLOS ALBERTO, hypertension and hyperlipidemia apparently has been complaining of profound weakness with a fall following dialysis today. He has been complaining of cough with productive sputum for the last few days and today he was noted to have more shortness of breath associated with it. Denies any significant injury from the fall and denies any significant pain in the emergency room. Denies any chest pain, any abdominal pain nausea and or vomiting, any problem with urine and bowel habit. Does not have any numbness and or tingling involving any of the extremities and no weakness in any side in particular. He was noted to be hypoxic emergency room and chest x-ray did show bibasilar infiltration associated with effusion right more than the left. He was admitted to medical telemetry unit for continued care. Admission Exam Per Admitting Provider Physical Exam: Lying in bed comfortably Constitutional: well developed, well nourished, + ill appearing and + obese; no acute distress Eyes: PERRL, conjunctivae normal, anicteric sclerae ENMT: external ear and nose normal, oropharynx normal Neck: trachea midline, no thyromegaly Respiratory: normal respiratory effort and + cough Auscultation: + diminished lung sounds and + crackles (Right base more than the left) Cardiovascular: Rate/Rhythm: + abnormal rate and + abnormal rhythm Heart Sounds: + murmur (2/6 ejection systolic murmur over precordium) Extremities: + edema (Bilateral leg edema 1-2+) Gastrointestinal (Abdomen): Inspection/Auscultation: abdomen normal to in spection and normal bowel sounds; abdomen not distended Percussion/Palpation: abdomen soft; abdomen nontender Musculoskeletal: No acute arthritis in any joints Neurologic: moves all extremities; no focal motor deficits Lymphatic: no cervical or axillary lymphadenopathy Principal Diagnosis Pneumonia Generalized weakness COPD, oxygen dependent Pleural effusion Presumed obstructive sleep apnea ESRD on hemodialysis Chronic diastolic heart failure Anemia Smoking Discharge Exam CONSTITUTIONAL: WNWD, vitals as above, generally well-appearing EYES: normal conjunctivae, no scleral icterus RESPIRATORY: Clear lungs to auscultation bilaterally. normal respiratory effort. CARDIOVASCULAR: regular rate and rhythm, S1 and 2 heard without murmurs, gallops or rubs, no JVD, no peripheral edema. GASTROINTESTINAL: soft, nontender, nondistended MUSCULOSKELETAL: strength 5/5 throughout, head is normocephalic and atraumatic, neck supple SKIN: warm and dry NEUROLOGIC: CN 2-12 grossly intact, no gross focal deficits. PSYCHIATRIC: alert cooperative and appears oriented. Answering questions appr opriately. Discharge Data Allergies Allergy/AdvReac Type Severity Reaction Status Date / Time codeine AdvReac Intermediate NAUSEA Verified 01/31/20 17:09 Consultations 01/31/20 17:38 ED Decision to Admit Stat 01/31/20 18:40 Consult Nephrology Stat 02/02/20 19:06 Consult Neurology Routine 02/03/20 15:02 Consult Case Management - Discharge Planning Routine 02/07/20 11:18 Consult Palliative Care Routine Ordered Studies 02/02/20 16:28 CT head/brain wo con Urgent 02/02/20 19:06 MR brain wo con Routine Hospital Course (1) Pneumonia: (2) Generalized weakness: (3) COPD (chronic obstructive pulmonary disease): (4) Pleural effusion: (5) CARLOS ALBERTO (obstructive sleep apnea): (6) ESRD (end stage renal disease): (7) Chronic diastolic heart failure: (8) Diabetes mellitus, type 2: (9) Atrial fibrillation: (10) Anemia: (11) Smoking: Chest x-ray revealed pulmonary vascular congestion with probable pulmonary edema and left greater than right pleural effusions with bibasilar opacities that are suggestive of atelectasis versus pneumonia. The patient is a known active smoker and has a chronic cough, however, is also a poor historian so was unclear whether symptoms were consistent with infection or not. Therefore, he was placed on empiric antibiotics with some improvement. He had significant wea kness that was persistent and a CT of the head was performed and negative. Additional imaging with a brain MRI was also performed and normal. 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 The patient recovered after a few days and was working with physical and Occupational Therapy and was ultimately ambulating closer to his baseline at time of discharge. While in the hospital he was continued on hemodialysis to manage his pleural effusions and chronic diastolic heart failure. He was encouraged to quit smoking, however, remains in the contemplative phase. He is on chronic oxygen supplementation and was on this prior to coming in. He is notably not on any anticoagulation for atrial fibrillation secondary to his history of subdural hematoma and fall risk. His rate was controlled with Toprol-XL. Notably he was anemic with multiple etiologies contributing including CKD, chronic medical problems and iron deficiency anemia. Iron supplementation was started this admission with a strong recommendation to the patient and family that he repeat the screening colonoscopy as recommended by his coremaker apprentice. He did have the removal of sessile polyps in 2009 consistent with benign adenomas at the time. He now has this new anemia but never had any follow-up. The patient and his daughter verbalized understanding with intent to comply with follow-up with gastroenterology. He was also strongly recommended to comply with his analytic manager's recommendations to complete his polysomnogram. Overall at time of discharge she was hemodynamically stable and afebrile and tolerating p.o. He was mentating at baseline and ambulating close to baseline and sent to SNF in stable condition with close primary care follow-up recommended. Repeat chest x- ray in 4 weeks is recommended to ensure complete resolution of pneumonia. Total Time Total Time Spent Total Time Spent (In Minutes): 60 Total Time Includes: Examination of the Patient, Discharge Planning, Medication Reconciliation and Communication With Other Providers Discharge Plan Discharge Items Patient Disposition: Transfer Alf Fac Reason For Visit: WEAKNESS,FALL Discharge Diagnosis: Pneumonia Generalized weakness COPD, oxygen dependent Pleural effusion Presumed obstructive sleep apnea ESRD on hemodialysis Chronic diastolic heart failure Anemia Smoking Condition on Discharge: Fair Activity: Resume your previous activity Non-emergency contact: Primary Care Provider and Sound Engineer Audio Control Call non-emergency contact if: you have any medication questions, your symptoms worsen and your pain is not controlled Follow-up/Referrals: Aden Colon MD [Primary Care Provider] - 02/08/20 2:20 pm (You have a follow up appt with Sandra PHILLIP on February 07 at 220pm. Please arrive 15 minutes prior to appt time. If this appt does not fit your schedule please call [phone] to reschedule. [facility] ) Diet: Carb Consistent or DM2, Dialysis Renal and Heart Healthy Addtl Attending Provider Instructions: Please take all medications as instructed on discharge list below. You are strongly recommended to undergo your sleep study to see if you qualify for a CPAP mask which may improve your breathing and overall quality of life. It is strongly recommended that he quit smoking as it is bad for her health. Furthermore it is dangerous to smoke while on oxygen as this is a flammable gas and put you and everyone you are around in danger. It is strongly recommended that you consider a follow-up colonoscopy with a gastroenterology specialist as you have new onset iron deficiency anemia that may indicate issues here. For now you are being given iron supplementation at discharge to take twice daily. It is recommended that you follow-up with your primary care doctor within one week of discharge from the rehab facility to [facility] and ensure you are still doing well. A repeat chest x-ray is recommended in 4 to 6 weeks to ensure complete resolution of pneumonia. This may be ordered by your primary care physician at time of follow-up. It was a pleasure taking care of you! Please call if you have any questions or problems. You can reach a [facility] hospitalist on duty at [facility] 24 hours a day by calling [phone]. Take care of yourself. Isabel Stewart, DO [facility] Pending Studies at Discharge: No Stand-Alone Forms: My [facility] Skilled Items Patient informed of condition?: Yes DNR: Yes Discharge Level of Care: Skilled Communicable Disease: No Discharge Prognosis: Stable Lines: Peripheral IV Urinary Catheter: No Medications and DC Order Prescriptions: New ferrous sulfate 325 mg (65 mg iron) Tablet,Delayed Release (Dr/Ec) 325 mg PO BIDM Qty: 60 RF: 0 Continued magnesium oxide 400 mg magnesium capsule 400 mg PO DAILY RF: 0 albuterol sulfate [Ventolin HFA] 90 mcg/actuation HFA aerosol inhaler 1 puffs INH QID PRN (Reason: Shortness Of Breath) RF: 0 levetiracetam 500 mg Tablet 500 mg PO BID RF: 0 lovastatin 40 mg Tablet 80 mg PO HS RF: 0 Victoza 2-Fernando 0.6 mg/0.1 mL (18 mg/3 mL) Pen Injector 1.2 mg SUBCUT DAILY RF: 0 cholecalciferol (vitamin D3) 2,000 unit Tablet 2,000 units PO DAILY RF: 0 metoprolol succinate 50 mg tablet extended release 24 hr 50 mg PO DAILY RF: 0 sertraline 25 mg tablet 25 mg PO DAILY RF: 0 glipizide 5 mg tablet 5 mg PO BID Qty: 60 RF: 1 Spiriva Respimat 2.5 mcg/actuation mist 2 puff INHALATION DAILY RF: 0 lidocaine-prilocaine 2.5-2.5 % cream 1 applic topical UD RF: 0 Discharge Orders: Discharge Order (Routine); Ordered 02/09/20 Ordered By: Isabel Stewart Admission Data Admit Date/Time: 01/31/20 20:09 Attending Provider: Isabel Stewart Admit Provider: Samuel Britton Primary Care Provider: Aden Colon Other Providers: Gilmar Kolb ; Jimmy Bledsoe ; Jyotsna Banda Other Interventions: Discharge Summary Assessment (RN) Last Done: 02/09/20 13:44 DC Date/Time DO NOT enter until pt leaves facility: 02/09/20 15:04
--- NOTE | 2020-02-12 08:45 | Coding Query ---
CONGESTIVE HEART FAILURE To Promote full compliance with coding requirements relating to patient care, physician participation is requested in all cases of national sales executive uncertainty. Please assist us with the following questions. A diagnosis of Congestive Heart Failure is documented in the patient's medical record. DUE TO CONFLICTING DOCUMENTATION WITH THE THE H&P SHOWING CHRONIC DIASTOLIC CHF AND CHRONIC SYSTOLIC CHF, THEN THE PROGRESS NOTES DOCUMENT CHRONIC DIASTOLIC CHF, AND THE PALLIATIVE CONSULTATION DOCUMENTS ACUTE ON CHRONIC DIASTOLIC CHF AND DISCHARGE SUMMARY DOCUMENTS DIASTOLIC CHF. To accurately code this diagnosis and to compare patient severity, we ask that you specify the type of heart failure by placing an X within the parenthesis (x). SYSTOLIC HEART FAILURE ( ) Acute ( ) Chronic ( ) Acute on Chronic ( ) Rheumatic ( ) Unknown DIASTOLIC HEART FAILURE ( ) Acute (x ) Chronic ( ) Acute on Chronic ( ) Rheumatic ( ) Unknown COMBINED SYSTOLIC AND DIASTOLIC HEART FAILURE ( ) Acute ( ) Chronic ( ) Acute on Chronic ( ) Rheumatic ( ) Unknown Was the CHF Present On Admission? Please check the appropriate box: ( ) Present on Admission ( ) Not Present On Admission ( ) Clinically undetermined Thank you Irais WALLS
== END 2020-02-09 15:04 | DRG 193 ==
LOC: ED 16:10 → SUATTDRO 20:09 → 2N 20:09 → 4W 02-09 01:29

== ENCOUNTER 2021-05-01 13:08 | Observation (INO) ==
--- NOTE | 2021-05-01 13:32 | Emergency Department Note ---
Impression & Plan Acute left-sided weakness, Renal failure ED Provider Note NAME: VICTOR MANUEL ORTIZ AGE: 81 SEX: M : 1940 ARRIVES VIA: Walk-In INFORMANT: Patient, the patient's daughter ED PROVIDER(S): Hugo Shaffer DO CHIEF COMPLAINT: Strokelike symptoms HPI: The patient is an 81-year-old male who has a history of end-stage renal disease requiring dialysis who presented to the emergency department for an evaluation of strokelike symptoms. Apparently the patient's last known well time was Wednesday of last . The patient was seen by his daughter on Wednesday and the patient appeared to be having difficulty ambulating but the patient felt it was secondary to his chronic lower extremity dysesthesias. The patient went to dialysis yesterday and was felt to have a facial droop. He was told to follow-up with his family doctor. He saw his family doctor today and was sent directly to the emergency department for strokelike symptoms. The patient denies having any headache. He states he is been compliant with all his outpatient medication regimen. His last dialysis treatment was yesterday and it was a full treatment. The patient states he is having difficulty with his left upper extremity his left lower extremity. He also has numbness on the left side of his face. According to his daughter he also has some decreased mental status and appears to be somewhat confused. The patient denies having any vomiting. He states that his symptoms are unchanged at least over the last 24 hours. ROS: See above HPI for pertinent positives & negatives. A total of 10 systems reviewed and were otherwise negative. PAST MEDICAL HISTORY: See Below PAST SURGICAL HISTORY: See Below FAMILY HISTORY: See Below SOCIAL HISTORY: See Below HOME MEDICATIONS: See Below ALLERGIES: See Below VITALS: See Below PHYSICAL EXAMINATION: GENERAL: The patient is awake and alert. The patient is nonanxious appearing. EYES: The conjunctivae are clear. The pupils are round and reactive. EARS, NOSE, MOUTH AND THROAT: The nose is without any evidence of any deformity. NECK: The neck is nontender and supple. RESPIRATORY: Normal respiratory effort is noted there is no evidence of wheezing rhonchi or rales CARDIOVASCULAR: Irregular rhythm was noted auscultation. There was no definite murmur. GASTROINTESTINAL: The abdomen is soft. Abdomen is nontender. MUSCULOSKELETAL/EXTREMITIES: There is no evidence of gross deformity full range of motion is noted in the hips and shoulders. SKIN: Skin was warm and dry. Trace pedal edema was noted bilaterally. NEUROLOGIC: Patient is awake alert and oriented x 3. 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 There is a slight facial droop with forehead sparing on the left. Mostly involving the corner of the mouth. Patient is able to hold each leg off the bed for greater than 5 seconds. MEDICAL DECISION MAKING: The patient is an 81-year-old male who has a history of end-stage renal disease who presented to the emergency department for neurologic symptoms which have been ongoing for the last few days. The patient was not made a stroke alert due to the symptoms greater than 24 hours. I discussed the patient's laboratory and radiographic studies with him as well as his family member. His physical exam could be consistent with an acute stroke but his blood pressure was low and he was found to have an abnormality on chest x-ray. The abnormality on chest x-ray does not appear to be new. I do not feel this definitely represents an infectious process. He may require further work-up as an inpatient. I discussed his case with the on-call [facility] hospitalist group. They have agreed to evaluate the patient in the emergency department for further management and disposition. Triage Nursing notes reviewed. Prior medical records reviewed Vital Signs: reviewed and remarkable for hypotension. Differential diagnosis: Infection, dehydration, metabolic abnormality, hypo/hyperglycemia, electrolyte disturbance, anemia, hypoxia, cardiac sources, intracerebral event, toxicologic, neurologic, as well as other pathologies. ER treatment provided: See below Diagnostics interpreted by me: ECG: EKG was obtained in the emergency department. My interpretation is atrial fibrillation at 74 bpm. No PVCs were noted. There was no acute ST segment abnormalities noted. This was compared to a tracing from January 302019. No significant changes were noted. Cardiac Monitoring: An order was placed for continuous cardiac monitoring. The monitor shows a rate of 85 bpm with atrial fibrillation rhythm. Laboratory studies: As stated above and show below. Imaging studies: See below Consultation(s): [facility] the patient in the emergency department. Past Med/Surg History Medical History AAA (abdominal aortic aneurysm) Asthma with COPD Atrial fibrillation dx 2016 - no longer taking warfarin - recent fall w/ brain bleed 03/2019 Chronic diastolic heart failure Chronic systolic heart failure CKD (chronic kidney disease), stage IV Daytime sleepiness Diabetes mellitus, type 2 Dyslipidemia ESRD (end stage renal disease) History of CVA (cerebrovascular accident) 2016 - dx w/ a.fib - [facility] - no deficits History of seizure history obtained from dtr - unsure of last seizure History of subdural hemorrhage 03/2019 - [place] [facility] [place]N (hypertension), benign Nocturnal hypoxemia CARLOS ALBERTO (obstructive sleep apnea) does not tolerate CPAP Restrictive lung disease Severe chronic obstructive pulmonary disease Tobacco use disorder Surgical History History of back surgery History of cataract surgery History of colonoscopy History of esophagogastroduodenoscopy (EGD) History of lumbar spinal fusion x 2 History of tooth extraction Family History Mother Cancer Brother Diabetes Heart disease Social History Smoking Status: Current every day smoker Years Smoked: 65; Cigarettes Per Day: 6; Second Hand Exposure: No; Hx Alcohol Use: No Hx Substance Use: No Preferred Language: Montserratian Communication Ability: Effective 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 Beliefs That Will Affect Care: None marital status: Current Living Situation: Family How many Children do You have: 4 Feels Safe at Home: Yes Assistive Devices: Walker Allergies Allergies Allergy/AdvReac Type Severity Reaction Status Date / Time codeine AdvReac Intermediate NAUSEA Verified 05/01/21 14:21 Home Meds Home Medications Medication Instructions Recorded Confirmed Victoza 2-Fernando 1.2 mg SUBCUT DAILY 02/09/19 05/01/21 cholecalciferol (vitamin D3) 2,000 units PO QAM 02/09/19 05/01/21 lovastatin 80 mg PO HS 02/09/19 05/01/21 levetiracetam 500 mg PO BID 05/10/19 05/01/21 sertraline 25 mg PO QAM 11/21/19 05/01/21 magnesium oxide 400 mg PO QAM 01/17/20 05/01/21 lidocaine-prilocaine 1 applic TOPICAL DAILY 02/09/20 05/01/21 glipizide 2.5 mg PO BID 05/01/21 05/01/21 metoprolol succinate 25 mg PO DAILY 05/01/21 05/01/21 Results & Data (ED) Vital Signs Vital Signs - 24 hr 05/01/21 13:10 05/01/21 13:27 05/01/21 13:28 Temperature 36.1 C L Temperature Source Oral Pulse Rate 83 82 76 Pulse Rate [Apical] Pulse Rate from SpO2 Sensor 80 79 Pulse Rhythm Regular Pulse Rhythm [Apical] Pulse Strength Normal Pulse Strength [Apical] Respiratory Rate 16 17 23 Respiratory Effort / Characteristics Non-Labored Respiratory Depth Normal Respiratory Pattern Regular Blood Pressure 109/59 L 134/72 Blood Pressure [Left Arm] Blood Pressure Mean 75 92 Blood Pressure Mean [Left Arm] Blood Pressure Position Sitting Blood Pressure Position [Left Arm] Pulse Oximetry 97 97 97 Oxygen Delivery Method Room Air Sepsis Recent Fever Within 48 Hours No Sepsis New/Unexplained Change in Mental Status N/A Sepsis Action Taken by Nursing No Action Required 05/01/21 13:30 05/01/21 14:00 05/01/21 14:01 Temperature Temperature Source Pulse Rate 77 67 73 Pulse Rate [Apical] Pulse Rate from SpO2 Sensor 80 68 71 Pulse Rhythm Pulse Rhythm [Apical] Pulse Strength Pulse Strength [Apical] Respiratory Rate 23 18 15 Respiratory Effort / Characteristics Respiratory Depth Respiratory Pattern Blood Pressure 120/60 Blood Pressure [Left Arm] Blood Pressure Mean 80 Blood Pressure Mean [Left Arm] Blood Pressure Position Blood Pressure Position [Left Arm] Pulse Oximetry 96 96 95 Oxygen Delivery Method Sepsis Recent Fever Within 48 Hours Sepsis New/Unexplained Change in Mental Status Sepsis Action Taken by Nursing 05/01/21 14:30 05/01/21 15:00 05/01/21 15:01 Temperature Temperature Source Pulse Rate 76 73 67 Pulse Rate [Apical] Pulse Rate from SpO2 Sensor 79 77 66 Pulse Rhythm Pulse Rhythm [Apical] Pulse Strength Pulse Strength [Apical] Respiratory Rate 18 16 15 Respiratory Effort / Characteristics Respiratory Depth Respiratory Pattern Blood Pressure 115/48 L Blood Pressure [Left Arm] Blood Pressure Mean 70 Blood Pressure Mean [Left Arm] Blood Pressure Position Blood Pressure Position [Left Arm] Pulse Oximetry 98 95 95 Oxygen Delivery Method Sepsis Recent Fever Within 48 Hours Sepsis New/Unexplained Change in Mental Status Sepsis Action Taken by Nursing 05/01/21 15:20 Temperature Temperature Source Pulse Rate Pulse Rate [Apical] 75 Pulse Rate from SpO2 Sensor Pulse Rhythm Pulse Rhythm [Apical] Regular Pulse Strength Pulse Strength [Apical] Normal Respiratory Rate 16 Respiratory Effort / Characteristics Non-Labored Spontaneous Respiratory Depth Normal Respiratory Pattern Blood Pressure Blood Pressure [Left Arm] 115/48 L Blood Pressure Mean Blood Pressure Mean [Left Arm] 70 Blood Pressure Position Blood Pressure Position [Left Arm] Lying Pulse Oximetry 95 Oxygen Delivery Method Room Air Sepsis Recent Fever Within 48 Hours Sepsis New/Unexplained Change in Mental Status Sepsis Action Taken by Shelter Medications Current Medication List: was personally reviewed by me Laboratory Data Attestation: I reviewed the patient's lab results. Result diagrams: 05/01/21 13:25 05/01/21 13:25 Lab Results 05/01/21 05/01/21 05/01/21 Range/Units 13:25 13:25 13:25 WBC 9.08 (4.8-10.8) K/uL RBC 3.78 L (4.7-6.1) M/uL Hgb 11.6 L (14.0-18.0) g/dL Hct 34.4 L (42-52) % MCV 91.0 (80-100) fL MCH 30.7 (25-34) pg MCHC 33.7 (32-36) g/dL RDW Std Deviation 49.8 H (36.4-46.3) fL RDW Coeff of Kiah 15.0 H (11.5-14.5) % Plt Count 237 (130-400) K/uL MPV 9.0 (7.4-10.4) fL Immature Gran % (Auto) 0.8 % Neut % (Auto) 76.8 % Lymph % (Auto) 12.9 % Whiteside % (Auto) 8.3 % Eos % (Auto) 1.1 % Baso % (Auto) 0.1 % Neut # (Auto) 6.98 H (1.4-6.5) K/uL Lymph # (Auto) 1.17 L (1.2-3.4) K/uL Whiteside # (Auto) 0.75 H (0.11-0.59) K/uL Eos # (Auto) 0.10 (0-0.5) K/uL Baso # (Auto) 0.01 (0-0.2) K/uL Immature Gran # (Auto) 0.07 H (0.00-0.02) K/uL PT 10.3 (9.0-12.0) Seconds INR 1.0 (0.9-1.1) APTT 26.7 (21.0-31.0) Seconds PTT Ratio 1.0 Sodium 133 L (136-145) mmol/L Potassium 4.5 (3.5-5.1) mmol/L Chloride 99 (98-107) mmol/L Carbon Dioxide 26 (21-32) mmol/L Anion Gap 8.0 (3-11) BUN 36 H (7-18) mg/dl Creatinine 5.35 H* (0.6-1.4) mg/dl Est Cr Clr Drug Dosing Not Reportable Est GFR ( Amer) 10.7 ml/min Est GFR (Non-Af Amer) 9.3 ml/min BUN/Creatinine Ratio 6.8 L (10-20) Glucose 166 H (70-99) mg/dl Lactate (0.4-2.0) mmol/L Calcium 8.9 (8.5-10.1) mg/dl Magnesium 2.7 H (1.8-2.4) mg/dl Total Bilirubin 0.4 (0.2-1) mg/dl AST 10 L (15-37) U/L ALT 18 (12-78) U/L Alkaline Phosphatase 81 (45-117) U/L Troponin I < 0.015 (0-0.045) ng/ml Total Protein 7.4 (6.4-8.2) gm/dl Albumin 3.2 L (3.4-5.0) gm/dl Globulin 4.2 H (2.5-4.0) gm/dl Albumin/Globulin Ratio 0.8 L (0.9-2) Procalcitonin (0-0.5) ng/ml COVID-19 Eval Order 05/01/21 05/01/21 05/01/21 Range/Units 13:25 15:57 16:09 WBC (4.8-10.8) K/uL RBC (4.7-6.1) M/uL Hgb (14.0-18.0) g/dL Hct (42-52) % MCV (80-100) fL MCH (25-34) pg MCHC (32-36) g/dL RDW Std Deviation (36.4-46.3) fL RDW Coeff of Kiah (11.5-14.5) % Plt Count (130-400) K/uL MPV (7.4-10.4) fL Immature Gran % (Auto) % Neut % (Auto) % Lymph % (Auto) % Whiteside % (Auto) % Eos % (Auto) % Baso % (Auto) % Neut # (Auto) (1.4-6.5) K/uL Lymph # (Auto) (1.2-3.4) K/uL Whiteside # (Auto) (0.11-0.59) K/uL Eos # (Auto) (0-0.5) K/uL Baso # (Auto) (0-0.2) K/uL Immature Gran # (Auto) (0.00-0.02) K/uL PT (9.0-12.0) Seconds INR (0.9-1.1) APTT (21.0-31.0) Seconds PTT Ratio Sodium (136-145) mmol/L Potassium (3.5-5.1) mmol/L Chloride (98-107) mmol/L Carbon Dioxide (21-32) mmol/L Anion Gap (3-11) BUN (7-18) mg/dl Creatinine (0.6-1.4) mg/dl Est Cr Clr Drug Dosing Est GFR ( Amer) ml/min Est GFR (Non-Af Amer) ml/min BUN/Creatinine Ratio (10-20) Glucose (70-99) mg/dl Lactate 0.7 (0.4-2.0) mmol/L Calcium (8.5-10.1) mg/dl Magnesium (1.8-2.4) mg/dl Total Bilirubin (0.2-1) mg/dl AST (15-37) U/L ALT (12-78) U/L Alkaline Phosphatase (45-117) U/L Troponin I (0-0.045) ng/ml Total Protein (6.4-8.2) gm/dl Albumin (3.4-5.0) gm/dl Globulin (2.5-4.0) gm/dl Albumin/Globulin Ratio (0.9-2) Procalcitonin 2.05 H (0-0.5) ng/ml COVID-19 Eval Order Covid19 at [facility] Administered Medications Discontinued Medications Sodium Chloride (Nss 1000ml) 500 mls @ 999 mls/hr IV .Q31M ONE Stop: 05/01/21 15:24 Last Admin: 05/01/21 15:11 Dose: 999 mls/hr Documented by: [id number] Imaging Data Radiologist's Impression: Chest X-Ray 05/01/21 13:20 XR chest 1V portable CLINICAL HISTORY: Stroke Like Symptoms COMPARISON STUDY: February 03, 2020 FINDINGS: No definite pneumothorax is seen however evaluation is limited because bilateral lung apices are partially obscured by patient's chin.. There is large left pleural effusion as well as infiltrate or consolidative lesion within left lower lung. Above-mentioned findings were also seen due to prior study in January 2020 and slightly improved since prior exam. Previously seen pleural effusion on the right is no longer visualized. Cardiomediastinal silhouette is difficult to assess because left heart border is obscured by surrounding opacities. Aorta is calcified. No significant pulmonary vascular congestion.. Osseous structures: Degenerative changes of the spine. IMPRESSION: 1. Large left pleural effusion associated with atelectasis/infiltrate within left lower lung. ACT 112: Negative or not required by law. The above report was generated using voice recognition software. It may contain grammatical, syntax or spelling errors. Electronically signed by: Yesi Swan DO 05/01/2021 2:[address] 05/01/21 13:20 CT SCAN OF THE BRAIN WITHOUT IV CONTRAST CLINICAL HISTORY: Strokelike symptoms. COMPARISON STUDY: CT of the brain dated 02/02/2020. TECHNIQUE: Unenhanced axial CT scan of the brain is performed from the vertex to the skull base. A dose lowering technique was utilized adhering to the principles of ALARA. CT DOSE: 729.78 mGycm FINDINGS: Brain parenchyma: There are age-related involutional changes noting mild subcortical and periventricular microangiopathic change. There is no hemorrhage, mass effect, or evidence of acute territorial ischemia by CT criteria. Chou- white matter differentiation is preserved. No extra-axial fluid collection is seen. Ventricles, sulci, cisterns: Prominent secondary to involutional change. Intracranial vasculature: There is atherosclerotic calcification of the cavernous carotid and vertebral arteries. Calvarium: Unremarkable. Sinuses and mastoids: The visualized paranasal sinuses are clear. The mastoid air cells are well pneumatized. Cerumen is noted in the right external canal. Orbits: There is evidence of a chronic right orbital floor fracture. The bony orbits are otherwise grossly intact. There are bilateral ocular lens implants. IMPRESSION: There is no hemorrhage, mass effect, or evidence of acute territorial ischemia by CT criteria. ACT 112: Negative or not required by law. Electronically signed by: Aman Valverde M.D. 05/01/2021 2:31 PM Discharge Plan Visit Data Chief Complaint: Neuro Symptoms/Deficit Stated Complaint: L SIDE NUMB,FACE DROOPING ON L SIDE ED Provider: Hugo Shaffer Discharge Problem: Acute left-sided weakness, Renal failure Patient Disposition: Being Evaluated by Hospitalist Condition: Good Forms Stand Alone Forms: My [facility] Prescriptions Prescriptions: No Action magnesium oxide 400 mg magnesium capsule 400 mg PO QAM RF: 0 levetiracetam 500 mg Tablet 500 mg PO BID RF: 0 lovastatin 40 mg Tablet 80 mg PO HS RF: 0 Victoza 2-Fernando 0.6 mg/0.1 mL (18 mg/3 mL) Pen Injector 1.2 mg SUBCUT DAILY RF: 0 cholecalciferol (vitamin D3) 2,000 unit Tablet 2,000 units PO QAM RF: 0 sertraline 25 mg tablet 25 mg PO QAM RF: 0 lidocaine-prilocaine 2.5-2.5 % cream 1 applic topical DAILY RF: 0 glipizide 5 mg tablet 2.5 mg PO BID RF: 0 metoprolol succinate 25 mg Tablet Extended Release 24 Hr 25 mg PO DAILY RF: 0 Referrals Referrals: Aden Colon MD [Primary Care Provider] - Discharge Problem: Renal failure Qualifiers: Renal failure chronicity: chronic Chronic kidney disease stage: on chronic dialysis Qualified Code(s): N18.6 - End stage renal disease
[2021-05-01 13:35] LABS: Basophils # (auto) 0.01 K/uL (0-0.2); Basophils % (auto) 0.1 %; Eosinophils % (auto) 1.1 %; Hematocrit (blood only) 34.4 % (42-52); Hemoglobin 11.6 g/dL (14.0-18.0); Immature Granulocytes # (auto) 0.07 K/uL (0.00-0.02); Immature Granulocytes % (auto) 0.8 %; Lymphocytes # (auto) 1.17 K/uL (1.2-3.4); Lymphocytes % (auto) 12.9 %; Mean Corpuscular Hemoglobin 30.7 pg (25-34); Mean Corpuscular Hgb Conc 33.7 g/dL (32-36); Monocytes # (auto) 0.75 K/uL (0.11-0.59); Monocytes % (auto) 8.3 %; Neutrophils # (auto) 6.98 K/uL (1.4-6.5); Neutrophils % (auto) 76.8 %; Platelet Count 237 K/uL (130-400); RDW Standard Deviation 49.8 fL (36.4-46.3); Red Blood Count 3.78 M/uL (4.7-6.1); White Blood Count 9.08 K/uL (4.8-10.8)
[2021-05-01 13:46] LABS: Partial Thromboplastin Time 26.7 Seconds (21.0-31.0); Prothrombin Time 10.3 Seconds (9.0-12.0)
--- NOTE | 2021-05-01 14:01 | XRay Report ---
XR chest 1V portable CLINICAL HISTORY: Stroke Like Symptoms COMPARISON STUDY: February 03, 2020 FINDINGS: No definite pneumothorax is seen however evaluation is limited because bilateral lung apices are part ially obscured by patient's chin.. There is large left pleural effusion as well as infiltrate or consolidative lesion within left lower lung. Above-mentioned findings were also seen due to prior study in January 2020 and slightly improved since prior exam. Previously seen pleural effusion on the right is no longer visualized. Cardiomediastinal silhouette is difficult to assess because left heart border is obscured by surround ing opacities. Aorta is calcified. No significant pulmonary vascular congestion.. Osseous structures: Degenerative changes of the spine. IMPRESSION: 1. Large left pleural effusion associated with atelectasis/infiltrate within left lower lung. ACT 112: Negative or not required by law. The above report was generated using voice recognition software. It may contain grammatical, syntax o r spelling errors. Electronically signed by: Yesi Swan DO 05/01/2021 2:00 PM
[2021-05-01 14:02] LABS: Alanine Aminotransferase 18 U/L (12-78); Albumin Globulin Ratio 0.8 (0.9-2); Albumin Level 3.2 gm/dl (3.4-5.0); Alkaline Phosphatase 81 U/L (45-117); Aspartate Aminotransferase 10 U/L (15-37); BUN Creatinine Ratio 6.8 (10-20); Bilirubin,Total 0.4 mg/dl (0.2-1); Blood Urea Nitrogen 36 mg/dl (7-18); Calcium 8.9 mg/dl (8.5-10.1); Carbon Dioxide 26 mmol/L (21-32); Chloride 99 mmol/L (98-107); Est GFR (African American) 10.7 ml/min; Est GFR (Non-African American) 9.3 ml/min; Globulin 4.2 gm/dl (2.5-4.0); Glucose 166 mg/dl (70-99); Magnesium 2.7 mg/dl (1.8-2.4); Potassium 4.5 mmol/L (3.5-5.1); Sodium 133 mmol/L (136-145); Total Protein 7.4 gm/dl (6.4-8.2); Troponin I < 0.015 ng/ml (0-0.045)
--- NOTE | 2021-05-01 14:32 | CT Scan Report ---
CT SCAN OF THE BRAIN WITHOUT IV CONTRAST CLINICAL HISTORY: Strokelike symptoms. COMPARISON STUDY: CT of the brain dated 02/02/2020. TECHNIQUE: Unenhanced axial CT scan of the brain is performed from the vertex to the skull base. A do se lowering technique was utilized adhering to the principles of ALARA. CT DOSE: 729.78 mGycm FINDINGS: Brain parenchyma: There are age-related involutional changes noting mild subcortical and periventric ular microangiopathic change. There is no hemorrhage, mass effect, or evidence of acute territorial i schemia by CT criteria. Chou-white matter differentiation is preserved. No extra-axial fluid collecti on is seen. Ventricles, sulci, cisterns: Prominent secondary to involutional change. Intracranial vasculature: There is atherosclerotic calcification of the cavernous carotid and vertebr al arteries. Calvarium: Unremarkable. Sinuses and mastoids: The visualized paranasal sinuses are clear. The mastoid air cells are well pneu matized. Cerumen is noted in the right external canal. Orbits: There is evidence of a chronic right orbital floor fracture. The bony orbits are otherwise gr ossly intact. There are bilateral ocular lens implants. IMPRESSION: There is no hemorrhage, mass effect, or evidence of acute territorial ischemia by CT crit erkenny. ACT 112: Negative or not required by law. Electronically signed by: Aman Valverde M.D. 05/01/2021 2:31 PM
[2021-05-01] MEDS ORDERED: SODIUM CHLORIDE 0.9% 1000ML 500 ML IV ONE (14:54)
--- NOTE | 2021-05-01 15:32 | Electrocardiogram Report ---
Test Reason : Blood Pressure : / mmHG Vent. Rate : 074 BPM Atrial Rate : 090 BPM P-R Int : 000 ms QRS Dur : 090 ms QT Int : 372 ms P-R-T Axes : 096 074 076 degrees QTc Int : 412 ms Atrial flutter Abnormal ECG When compared with ECG of 31-JAN-2020 16:17, HR has decreased 30 bpm Otherwise no significant change Confirmed by Tim Zhong ([id number]) on 05/01/2021 3:32:06 PM Referred By: REFERRED SELF Confirmed By:Tim Zhong
[2021-05-01] MEDS ORDERED: cefTRIAXone SODIUM 1,000 MG/50 ML BAG IV STA (15:57)
[2021-05-01] MEDS ORDERED: DOXYCYCLINE HYCLATE 100 MG CAP PO STA (15:57)
[2021-05-01] MEDS ORDERED: cefTRIAXone SODIUM 2,000 MG/70 ML BAG IV STA (16:01)
--- NOTE | 2021-05-01 16:08 | History & Physical Report ---
Date of Service May 01, 2021 Assessment & Plan (1) Stroke-like symptoms: (2) Foot drop, left: This is a 81-year-old male who has significant past medical history of ESRD on HD MWF, T2DM, chronic atrial fibrillation not on anticoagulation secondary to history of SDH, COPD, chronic hypoxic respiratory failure on nocturnal O2 4 L, CARLOS ALBERTO, chronic diastolic CHF, HTN, AAA, history of SDH on seizure prophylaxis, secondary hyperparathyroidism who presents ED secondary to left-sided weakness, foot drop and left-sided facial droop x1 to 2 days. Pt with reported stroke like sx including L facial droop, L arm and L leg weakness, "dragging foot." Per PCP noted in Epic L facial droop was noted, inability to puff left cheek, L tongue deviation and L arm weakness. Currently sx are absent. CT Head negative for acute abnormality. Pt last known well wednesday, reported sx started yesterday but pt truly unsure. TPA not indicated given sx resolution and time admit to PCU obtain MRI brain consult neurology US of carotids echocardiogram PT/OT lipid panel, a1c in a.m. continue high dose lovastatin will start asa 81mg x 1 now (3) Large pleural effusion: CXR shows Large Left pleural effusion with consolidation pt c/o cough x 1 month, productive white sputum obtain procalcitonin, sputum culture start rocephin and doxycycline empirically until PNA r/o consult pulmonology 2/2 to Pleural effusion currently not requiring oxygen (4) ESRD (end stage renal disease): HD Wednesday Consult [facility] Daily weights Currently mag 2.7, hold mag supplementation (5) Diabetes mellitus, type 2: Last A1c 6.4 03/18/2021 Obtain A1c in a.m. Lantus/NovoLog per protocol Hold glipizide and Victoza (6) Chronic diastolic heart failure: Volume status managed with HD Continue metoprolol Daily weights, strict I's and O's (7) COPD (chronic obstructive pulmonary disease): Follows [facility] Pulm refuses inhalers no acute exacerbation consult Pulm 2/2 to large pleural effusion (8) Atrial fibrillation: Metoprolol for rate control Currently atrial flutter Off anticoagulation secondary to SDH in 2019 (9) Anemia: Anemia of chronic renal disease H&H stable 11.6 and 34.4 (10) Nocturnal hypoxemia: 4L of O2 at HS (11) HTN (hypertension), benign: BP on lower side in ED, which is unusual per daughter Continue metoprolol (12) Dyslipidemia: continue high dose statin (13) Tobacco abuse: pt continue to smoke encourage smoking cessation (14) DVT prophylaxis: SCD/TEDS for now monitor daily need for chemical prophylaxis Dispo: PCU DNR/DNI PCP: Darlene Pt was seen and examined in collaboration with Dr. Wong, please see addendum History of Present Illness Chief Complaint: L sided weakness, foot droop and L sided facial droop x 1-2 days. Primary Care Provider: Aden Colon MD This is a 81-year-old male who has significant past medical history of ESRD on HD MWF, T2DM, chronic atrial fibrillation not on anticoagulation secondary to history of SDH, COPD, chronic hypoxic respiratory failure on nocturnal O2 4 L, CARLOS ALBERTO, chronic diastolic CHF, HTN, AAA, history of SDH, secondary hyperparathyroidism who presents ED secondary to left-sided weakness, foot drop and left-sided facial droop x1 to 2 days. Daughter is at bedside. Patient is unfortunately since last month and is currently living with his daughter, son-in-law and grandson. Over the last several days he has noticed difficulty walking and left foot dragging. Yesterday while at dialysis he was also told he had left-sided facial droop and he continued to complain of left- sided weakness. His daughter at bedside last saw him on Wednesday and he was generally weak, but attributed this to dialysis. At that time she did not notice any facial droop. Patient is uncertain at exact time of onset. He denies any difficulty swallowing or slurred speech. He denies any recent illness, fever, chills, sweats, syncope, fall, chest pain, shortness breath at rest, hemoptysis, nausea, vomiting, abdominal pain, melena, hematochezia or diarrhea. Patient does make minimal urine and denies hematuria. He does elicit to a cough that has been present for approximately 1 month. Cough is productive of white sputum. He also admits to increasing shortness of breath with exertion. Patient was seen and evaluated by PCP today who documented left-sided facial droop, difficulty puffing out left-sided cheek as well as left-sided weakness. Per daughter she feels symptoms are much improved currently than this morning. In ED patient remained hemodynamically stable. Lab work notable for H&H 11.6 and 34.4, sodium 133, BUN 36, creatinine 5.35, glucose 166, mag 2.7. Head CT revealed a chronic right orbital floor fracture but no other acute abnormality including hemorrhage or CVA. Chest x-ray was notable for large left pleural effusion associated with atelectasis/infiltrate within the left lower lung. Patient follows with [facility] pulmonology in approximately 3 years ago also had a large pleural effusion requiring thoracentesis. Daughter states it was attributed to CHF at dialysis. Allergies Allergy/AdvReac Type Severity Reaction Status Date / Time codeine AdvReac Intermediate NAUSEA Verified 05/01/21 14:21 Home Medications Medication Instructions Recorded Confirmed Type Victoza 2-Fernando 1.2 mg SUBCUT DAILY 02/09/19 05/01/21 History cholecalciferol (vitamin D3) 2,000 units PO QAM 02/09/19 05/01/21 History lovastatin 80 mg PO HS 02/09/19 05/01/21 History levetiracetam 500 mg PO BID 05/10/19 05/01/21 History sertraline 25 mg PO QAM 11/21/19 05/01/21 History magnesium oxide 400 mg PO QAM 01/17/20 05/01/21 History lidocaine-prilocaine 1 applic TOPICAL DAILY 02/09/20 05/01/21 History glipizide 2.5 mg PO BID 05/01/21 05/01/21 History metoprolol succinate 25 mg PO DAILY 05/01/21 05/01/21 History aspirin 81 mg PO DAILY 30 Days #30 tab 05/03/21 Rx clopidogrel 75 mg PO QAM 30 Days #30 tab 05/03/21 Rx Past Med/Surg History Medical History (Updated 05/03/21 @ 10:01 by Gilmar Kolb MD) AAA (abdominal aortic aneurysm) Asthma with COPD Atrial fibrillation dx 2015 - no longer taking warfarin - recent fall w/ brain bleed 03/2019 Chronic diastolic heart failure Chronic systolic heart failure CKD (chronic kidney disease), stage IV Daytime sleepiness Diabetes mellitus, type 2 Dyslipidemia ESRD (end stage renal disease) History of CVA (cerebrovascular accident) 2016 - dx w/ a.fib - [facility] - no deficits History of seizure history obtained from dtr - unsure of last seizure History of subdural hemorrhage 03/2019 - fall - [place] visit 03/30/2019 --> [facility] [place] HTN (hypertension), benign Multiple pulmonary nodules determined by computed tomography of lung Nocturnal hypoxemia CARLOS ALBERTO (obstructive sleep apnea) does not tolerate CPAP Pleural effusion, left Restrictive lung disease Severe chronic obstructive pulmonary disease Tobacco use disorder Surgical History History of back surgery History of cataract surgery History of colonoscopy History of esophagogastroduodenoscopy (EGD) History of lumbar spinal fusion x 2 History of tooth extraction Family History Mother Cancer Brother Diabetes Heart disease Social History Smoking Status: Current every day smoker Years Smoked: 65; Cigarettes Per Day: 10; Second Hand Exposure: No; Hx Alcohol Use: No Hx Substance Use: No Preferred Language: Indonesian Communication Ability: Effective Medical Office Assistant Required: No Beliefs That Will Affect Care: None marital status: Current Living Situation: Family How many Children do You have: 4 Feels Safe at Home: Yes Assistive Devices: Walker Review of Systems Review of Systems: All systems reviewed & are unremarkable except as noted in HPI & below Physical Exam Physical Exam: Constitutional: Elderly, male, chronic ill-appearing, WD/WN, vitals as above, NAD, sitting up in bed, pleasant, conversing easily Head: Normocephalic, Atraumatic Eyes: PERRL, conjunctivae normal, anicteric sclerae ENMT: external ear and nose normal, oropharynx normal Neck: trachea midline, no thyromegaly normal visual inspection Respiratory: normal respiratory effort, lungs clear to auscultation on right, breath sounds diminished on left,, no wheeze, rales, rhonchi. Normal insp/exp effort, no accessory muscle use . Saturating 96% on room air. Cardiovascular: Irregular rate, irregular rhythm, 2/6 TRISTON at RUSB, no edema Vessels: no JVD or carotid bruit Chest: normal inspection of chest Abdomen: normal bowel sounds, soft, nontender, no hepatosplenomegaly Musculoskeletal: no cyanosis or clubbing, extremities motor strength 5/5 Skin: no rashes, warm and dry normal turgor Neurologic: PERRL, EOMI, accommodation nl, no face palsy, no dysarthria CN's II-XI intact bilaterally and moves all extremities Psychiatric: A+Ox3, euthymic affect Lymphatic: no cervical or axillary lymphadenopathy : deferred Results & Data Results & Data ([facility]) Vital Signs (Past 12 Hours) Vital Signs Temp Pulse Pulse Resp BP BP Pulse Ox 05/01/21 15:20 75 16 115/48 L 95 05/01/21 15:01 67 15 95 05/01/21 15:00 73 16 115/48 L 95 05/01/21 14:30 76 18 98 05/01/21 14:01 73 15 95 05/01/21 14:00 67 18 120/60 96 05/01/21 13:30 77 23 96 05/01/21 13:28 76 23 134/72 97 05/01/21 13:27 82 17 97 05/01/21 13:10 36.1 C L 83 16 109/59 L 97 Diagnostic Findings Chest X-Ray 05/01/21 13:20 XR chest 1V portable CLINICAL HISTORY: Stroke Like Symptoms COMPARISON STUDY: February 03, 2020 FINDINGS: No definite pneumothorax is seen however evaluation is limited because bilateral lung apices are partially obscured by patient's chin.. There is large left pleural effusion as well as infiltrate or consolidative lesion within left lower lung. Above-mentioned findings were also seen due to prior study in January 2020 and slightly improved since prior exam. Previously seen pleural effusion on the right is no longer visualized. Cardiomediastinal silhouette is difficult to assess because left heart border is obscured by surrounding opacities. Aorta is calcified. No significant pulmonary vascular congestion.. Osseous structures: Degenerative changes of the spine. IMPRESSION: 1. Large left pleural effusion associated with atelectasis/infiltrate within left lower lung. ACT 112: Negative or not required by law. The above report was generated using voice recognition software. It may contain grammatical, syntax or spelling errors. Electronically signed by: Yesi Swan DO 05/01/2021 2:[address] 05/01/21 13:20 CT SCAN OF THE BRAIN WITHOUT IV CONTRAST CLINICAL HISTORY: Strokelike symptoms. COMPARISON STUDY: CT of the brain dated 02/02/2020. TECHNIQUE: Unenhanced axial CT scan of the brain is performed from the vertex to the skull base. A dose lowering technique was utilized adhering to the principles of ALARA. CT DOSE: 729.78 mGycm FINDINGS: Brain parenchyma: There are age-related involutional changes noting mild subcortical and periventricular microangiopathic change. There is no hemorrhage, mass effect, or evidence of acute territorial ischemia by CT criteria. Chou- white matter differentiation is preserved. No extra-axial fluid collection is seen. Ventricles, sulci, cisterns: Prominent secondary to involutional change. Intracranial vasculature: There is atherosclerotic calcification of the cavern ous carotid and vertebral arteries. Calvarium: Unremarkable. Sinuses and mastoids: The visualized paranasal sinuses are clear. The mastoid air cells are well pneumatized. Cerumen is noted in the right external canal. Orbits: There is evidence of a chronic right orbital floor fracture. The bony orbits are otherwise grossly intact. There are bilateral ocular lens implants. IMPRESSION: There is no hemorrhage, mass effect, or evidence of acute territorial ischemia by CT criteria. ACT 112: Negative or not required by law. Electronically signed by: Aman Valverde M.D. 05/01/2021 2:31 PM Medications Administered Medication List Discontinued Medications Sodium Chloride (Nss 1000ml) 500 mls @ 999 mls/hr IV .Q31M ONE Stop: 05/01/21 15:24 Last Admin: 05/01/21 15:11 Dose: 999 mls/hr Documented by: [id number] ECG Rate (beats per minute): 74 Rhythm: atrial flutter COVID-19 Results Results COVID-19 Adm Lab Results: RBC 3.30 M/uL (4.7-6.1) L 05/03/21 WBC 6.42 K/uL (4.8-10.8) 05/03/21 Hgb 10.3 g/dL (14.0-18.0) L 05/03/21 Hct 30.7 % (42-52) L 05/03/21 Plt Count 218 K/uL (130-400) 05/03/21 Neutrophils (%) (Auto) 72.5 % 05/03/21 Lymphocytes (%) (Auto) 14.5 % 05/03/21 Monocytes # (Auto) 0.69 K/uL (0.11-0.59) H 05/03/21 Eosinophils # (Auto) 0.11 K/uL (0-0.5) 05/03/21 Immature Granulocyte % (Auto) 0.3 % 05/03/21 Neutrophils # (Auto) 4.65 K/uL (1.4-6.5) 05/03/21 Lymphocytes # (Auto) 0.93 K/uL (1.2-3.4) L 05/03/21 Monocytes # (Auto) 0.69 K/uL (0.11-0.59) H 05/03/21 Eosinophils # (Auto) 0.11 K/uL (0-0.5) 05/03/21 Basophils # (Auto) 0.02 K/uL (0-0.2) 05/03/21 Immature Granulocyte # (Auto) 0.02 K/uL (0.00-0.02) 05/03/21 Na 134 mmol/L (136-145) L 05/03/21 K 4.4 mmol/L (3.5-5.1) 05/03/21 Cl 101 mmol/L (98-107) 05/03/21 CO2 27 mmol/L (21-32) 05/03/21 Anion Gap 6.0 (3-11) 05/03/21 BUN 34 mg/dl (7-18) H 05/03/21 Creatinine 4.53 mg/dl (0.6-1.4) H* 05/03/21 BUN/Creatinine Ratio 7.4 (10-20) L 05/03/21 Glucose Level 116 mg/dl (70-99) H 05/03/21 Ca 8.7 mg/dl (8.5-10.1) 05/03/21 Total Bilirubin 0.4 mg/dl (0.2-1) 05/01/21 AST/SGOT 10 U/L (15-37) L 05/01/21 ALT/SGPT 18 U/L (12-78) 05/01/21 Alkaline Phosphatase 81 U/L (45-117) 05/01/21 Total Protein 7.4 gm/dl (6.4-8.2) 05/01/21 Albumin 3.2 gm/dl (3.4-5.0) L 05/01/21 Globulin 4.2 gm/dl (2.5-4.0) H 05/01/21 Albumin/Globulin Ratio 0.8 (0.9-2) L 05/01/21 Troponin I < 0.015 ng/ml (0-0.045) 05/01/21 Procalcitonin 2.05 ng/ml (0-0.5) H 05/01/21 PTT 26.7 Seconds (21.0-31.0) 05/01/21 INR 1.0 (0.9-1.1) 05/01/21 Triglycerides Level 85 mg/dl (0-150) 05/02/21 COVID-19 PCR NEGATIVE (Negative) 05/01/[address] 05/01/21 Chest X-Ray 05/01/21 Code Status & VTE Plan Code Status DNR VTE Prophylaxis Plan VTE Prophylaxis will be ordered: Yes Supervising Physician Co-Signing Physician Notes Pt was seen and examined. Agreed with Loni ANDRADE exam, assessment and plan. 81-year-old male with significant past medical history of ESRD on HD, T2DM, chronic atrial fibrillation, COPD, chronic hypoxic respiratory failure on nocturnal O2 4 L, CARLOS ALBERTO, chronic diastolic CHF, HTN, AAA, history of SDH on seizure prophylaxis, hyperparathyroidism was brought to the ED secondary to left-sided weakness, foot drop and left-sided facial droop. For the last few days pt has been having difficulty to walk. Yesterday during HD pt was noticed to have left facial droop and left side weakness. CT head on admission showed no hemorrhage, mass effect, or evidence of acute territorial ischemia. Will start on ASA 81 mg. Will consult Neurology. Will get an MRI of the head, carotid u/s and resting echo. PT/Ot eval. Continue monitor closely in tele. MD Marvin (1) Atrial fibrillation Atrial fibrillation type: paroxysmal Qualified Code(s): I48.0 - Paroxysmal atrial fibrillation
[2021-05-01] MEDS ORDERED: ASPIRIN 81 MG ECTAB PO STA (17:00)
--- NOTE | 2021-05-01 17:24 | CT Scan Report ---
CT SCAN OF THE CHEST WITHOUT IV CONTRAST CLINICAL HISTORY: Left pleural effusion. COMPARISON STUDY: Chest x-ray dated 05/01/2021. Chest CT dated 02/13/2019. TECHNIQUE: CT scan of the thorax was performed from the thoracic inlet to the upper abdomen. Images are reviewed in the axial, sagittal, and coronal planes. IV contrast was not administered for this ex amination as per the referring clinician. A dose lowering technique was utilized adhering to the romelia eliseoples of IGGY. CT DOSE: 654.70 mGycm FINDINGS: Thyroid: Imaged portions of the thyroid gland are normal in size and attenuation. Thoracic aorta: There is atherosclerotic calcification of the thoracic aorta, which is normal in ana mila and demonstrates standard 3-vessel arch anatomy. Heart: The heart is enlarged and without pericardial effusion. The coronary arteries are densely calc ified. Lungs and pleural spaces: Mild emphysematous change is noted. There is a small to moderate and at van st partially loculated left pleural effusion/collection is seen at the left lung base. There is conso lidation of the left lower lung with surrounding pleural thickening. There is mild diffuse intralobul ar septal thickening. The trachea and central airways are clear. No pleural effusion is seen on the r ight. A 2.8 cm nodular density is seen in the anterior left upper lobe on image #130. Numerous pulmon keanu nodules are concerning for metastatic disease. There are at least 7 nodules scattered throughout the right lung. The largest is in the right middle lobe on image #186 measuring 1.3 cm. Additional re presentative nodules are seen in the right upper lobe on image #143 and in the right lower lobe on im ages #185, #191, and #221. There are scattered calcified granulomas. Mediastinum: There is no mediastinal lymphadenopathy. Elicia: Not well assessed without IV contrast. Axillae: There is no axillary lymphadenopathy. Upper abdomen: There is a small hiatal hernia. Bilateral adrenal nodules measure up to [address] criteria for fat-containing adenomas. An indeterminant lesion is partially visualized in the upper pole of the right kidney. This measures at least 3.5 cm. Skeletal structures: The skeletal structures are osteopenic. There are healed left-sided rib fracture s. Degenerative change is noted in the thoracic spine. No lytic or blastic bony lesions are seen. Soft tissues: Gynecomastia is noted. IMPRESSION: 1. There is a small to moderate and at least partially loculated left pleural effusion/collection wit h overlying pleural thickening. The sterility of this fluid cannot be evaluated by CT. 2. There is atelectasis/consolidation of the left lower lung. Correlate for evidence of pneumonia. 3. There is a 2.8 cm indeterminate nodular density in the anterior left upper lobe. A pulmonary mass lesion could have this appearance. 4. Additionally, there are at least 7 irregular pulmonary nodules scattered throughout the right lung . These are pathologically indeterminant, but highly suspicious for metastatic disease. 5. An indeterminant lesion is partially visualized in the upper pole of the right kidney. Consider co rrelation with a contrast-enhanced abdominal CT. 6. Cardiomegaly and emphysema. Intralobular septal thickening suggests a component of congestive fail ure. Clinical correlation will be required. 7. Additional findings as above. ACT 112: Negative or not required by law. Electronically signed by: Aman Valverde M.D. 05/01/2021 5:23 PM
[2021-05-01] MEDS ORDERED: ONDANSETRON INJ 2 MG/ML 2 ML VIAL IV PRN (19:02)
[2021-05-01] MEDS ORDERED: GLUCOSE 40% GEL 15 GM TUBE PO PRN (19:02)
[2021-05-01] MEDS ORDERED: CARBOHYDRATES FOR HYPOGLYCEMIA PO PRN (19:02)
[2021-05-01] MEDS ORDERED: POLYETHYLENE (MIRALAX) 17 GM PACK PO PRN (19:02)
[2021-05-01] MEDS ORDERED: ACETAMINOPHEN 325 MG TAB PO PRN (19:02)
[2021-05-01] MEDS ORDERED: PHARMACIST DISCHARGE MED REC CONSULT PRN (19:02)
[2021-05-01] MEDS ORDERED: DEXTROSE 50% 50 ML SYRINGE IV PRN (19:02)
[2021-05-01] MEDS ORDERED: GLUCOSE 10 TABS/TUBE PO PRN (19:02)
[2021-05-01] MEDS ORDERED: GLUCAGON FOR INJ 1 MG VIAL SQ PRN (19:02)
[2021-05-01] MEDS: INSULIN ASPART 100 UNITS/ML 3 ML PEN SC SCH ×2 (20:56→20:59)
[2021-05-01] MEDS: levETIRAcetam 500 MG TAB PO SCH (20:56)
[2021-05-01] MEDS: DOXYCYCLINE HYCLATE 100 MG CAP PO SCH (20:56)
[2021-05-01] MEDS: LOVASTATIN 20 MG TAB PO SCH (20:57)
[2021-05-01] MEDS: INSULIN GLARGINE SOLOSTAR 100 UNITS/ML 3 ML PEN SC SCH (20:58)
[2021-05-02 06:27] LABS: Basophils # (auto) 0.02 K/uL (0-0.2); Basophils % (auto) 0.3 %; Eosinophils # (auto) 0.13 K/uL (0-0.5); Eosinophils % (auto) 1.8 %; Hematocrit (blood only) 30.3 % (42-52); Hemoglobin 10.4 g/dL (14.0-18.0); Immature Granulocytes # (auto) 0.03 K/uL (0.00-0.02); Immature Granulocytes % (auto) 0.4 %; Lymphocytes # (auto) 1.07 K/uL (1.2-3.4); Lymphocytes % (auto) 14.8 %; Mean Corpuscular Hemoglobin 31.2 pg (25-34); Mean Corpuscular Hgb Conc 34.3 g/dL (32-36); Mean Platelet Volume 8.7 fL (7.4-10.4); Monocytes # (auto) 0.73 K/uL (0.11-0.59); Monocytes % (auto) 10.1 %; Neutrophils # (auto) 5.25 K/uL (1.4-6.5); Neutrophils % (auto) 72.6 %; Platelet Count 203 K/uL (130-400); RDW Coefficient of Variation 14.9 % (11.5-14.5); RDW Standard Deviation 49.2 fL (36.4-46.3); Red Blood Count 3.33 M/uL (4.7-6.1); White Blood Count 7.23 K/uL (4.8-10.8)
--- NOTE | 2021-05-02 07:06 | Ultrasound Report ---
ULTRASOUND OF THE CAROTID ARTERIES CLINICAL HISTORY: Strokelike symptoms. COMPARISON STUDY: No priors. TECHNIQUE: Real-time, grayscale, and color Doppler sonography of the carotid arteries is performed. I mages are reviewed in the transverse and longitudinal planes. FINDINGS: Blood pressures were not assessed due to limb restrictions. The carotid arteries are patent bilaterally and demonstrate antegrade flow. There is moderate echogen ic shadowing atherosclerotic plaque seen in the carotid bulbs bilaterally. Normal doppler arterial wa veforms are seen throughout. Velocity measurements are listed below. Common carotid peak systolic velocity (cm/sec): RIGHT: 62 LEFT: 92 ICA proximal peak systolic velocity (cm/sec): RIGHT: 105 LEFT: 107 ICA mid peak systolic velocity (cm/sec): RIGHT: 110 LEFT: 71 ICA distal peak systolic velocity (cm/sec): RIGHT: 47 LEFT: 62 ICA/CC peak systolic ratio: RIGHT: 1.8 LEFT: 1.2 Antegrade flow was shown in the vertebral arteries. The external carotid arteries are patent. IMPRESSION: 1. Atherosclerotic plaque with no sonographic evidence of hemodynamically significant stenosis in the right or left carotid arterial system. 2. Antegrade flow is shown in the vertebral arteries. ACT 112: Negative or not required by law. Electronically signed by: Aman Valverde M.D. 05/02/2021 7:05 AM
--- NOTE | 2021-05-02 07:22 | Magnetic Resonance Report ---
MRI OF THE BRAIN WITHOUT IV CONTRAST CLINICAL HISTORY: Strokelike symptoms. Left-sided facial droop. COMPARISON STUDY: CT of the brain dated 05/01/2021. TECHNIQUE: MRI of the brain was performed utilizing various T1 and T2-weighted sequences in the axial , sagittal, and coronal planes. IV contrast was not administered for this examination. FINDINGS: Brain parenchyma: There is age-related involutional change noting [id number] subcortical and pe riventricular microangiopathic disease. There is no hemorrhage or mass effect. There is no restricted diffusion to suggest acute ischemia. Chou-white matter differentiation is preserved. No extra-axial fluid collection is seen. The cerebellar tonsils are normal in configuration. Ventricles, sulci, and cisterns: Prominent secondary to involutional change. Pituitary and sella: Unremarkable. Intracranial vasculature: Normal flow voids are maintained at the skull base. Orbits: There is evidence of a chronic right orbital floor injury. Orbital contents are normal in ijeoma earance noting bilateral ocular lens implants. Sinuses and mastoids: Clear. Calvarium: Unremarkable. Cervical cord: Partially visualized cervical spinal cord is normal in morphology and signal intensity . IMPRESSION: No acute intracranial abnormality. ACT 112: Negative or not required by law. Electronically signed by: Aman Valverde M.D. 05/02/2021 7:21 AM
[2021-05-02 07:43] LABS: Estimated Average Glucose 166 mg/dl; Hemoglobin A1C 7.4 % (4.5-5.6)
[2021-05-02 07:44] LABS: BUN Creatinine Ratio 7.6 (10-20); Calcium 8.8 mg/dl (8.5-10.1); Creatinine Clr Calc Pharmacy 12.1 ml/min; Est GFR (African American) 9.6 ml/min; Est GFR (Non-African American) 8.3 ml/min; Potassium 4.6 mmol/L (3.5-5.1)
[2021-05-02] MEDS: ASPIRIN 81 MG ECTAB PO SCH (08:17)
[2021-05-02] MEDS: levETIRAcetam 500 MG TAB PO SCH ×2 (08:18→20:25)
[2021-05-02] MEDS: SERTRALINE HCL 50 MG TABLET PO SCH (08:18)
[2021-05-02] MEDS: DOXYCYCLINE HYCLATE 100 MG CAP PO SCH ×2 (08:18→20:25)
[2021-05-02] MEDS: METOPROLOL SUCC 25MG EXT REL TAB PO SCH (08:18)
[2021-05-02] MEDS: CHOLECALCIFEROL 1,000 UNITS 25 MCG TAB PO SCH (08:19)
[2021-05-02] MEDS: INSULIN ASPART 100 UNITS/ML 3 ML PEN SC SCH ×4 (08:20→20:30)
--- NOTE | 2021-05-02 08:28 | Electrocardiogram Report ---
Test Reason : Blood Pressure : / mmHG Vent. Rate : 081 BPM Atrial Rate : 241 BPM P-R Int : 000 ms QRS Dur : 090 ms QT Int : 378 ms P-R-T Axes : 000 077 069 degrees QTc Int : 439 ms Atrial fibrillation Abnormal ECG When compared with ECG of 01-MAY-2021 13:19, Atrial fibrillation has replaced Atrial flutter Confirmed by Tim Zhong ([id number]) on 05/02/2021 8:28:44 AM Referred By: REFERRED SELF Confirmed By:Tim Zhong
[2021-05-02] MEDS: INSULIN GLARGINE SOLOSTAR 100 UNITS/ML 3 ML PEN SC SCH ×2 (10:20→20:29)
--- NOTE | 2021-05-02 10:28 | Pulmonary Consultation ---
Date of Consultation May 02, 2021 Assessment & Plan (1) Pleural effusion, left: 81-year-old male with a past medical history of mixed obstructive and restrictive lung disease, tobacco abuse, emphysema, diabetes mellitus type 2 and ESRD on dialysis presenting to the hospital due to s trokelike symptoms. Left pleural effusion: This is chronic and likely related to his ESRD and diastolic heart failure. Patient is currently on room air and does not appear to be in any respiratory distress. I do not think this represents an infectious process at this time. No thoracentesis required currently. Multiple lung nodules: Recommend outpatient short interval CT chest without contrast in 4 to 6 weeks after treatment with antibiotics. Possibility of infectious/inflammatory process. There is certainly a concern of malignancy given his tobacco abuse history. No significant mediastinal or hilar adenopathy noted. Tobacco abuse: Counseled on smoking cessation. He has a history of obstructive and restrictive lung disease seen on PFTs. He is not on any inhalers at home. He has refused inhalers in the past. Shortness of breath: Multifactorial secondary to underlying lung disease, anemia, ESRD, deconditioning and diastolic heart failure. Thank you for the consultation. Please call with questions. (2) COPD (chronic obstructive pulmonary disease): (3) Multiple pulmonary nodules determined by computed tomography of lung: (4) Restrictive lung disease: (5) Shortness of breath: (6) Smoking: History of Present Illness Reason for Consultation: Left-sided pleural effusion Attending Physician: Jaimie Wong MD History of Present Illness 81-year-old male who presented to the hospital due to strokelike symptoms. He has a past medical history of ESRD on dialysis, type 2 diabetes mellitus, atrial fibrillation not on anticoagulation due to history of subdural hematoma, restrictive lung disease and chronic hypoxemic respiratory failure on 4 L of oxygen. Yesterday and facial droop following dialysis and he has been having ongoing weakness for the last several days. He also has a cough and increasing shortness of breath with exertion. CT of his chest was completed yesterday which demonstrated small to moderate loculated left pleural effusion with pleural thickening. Atelectasis is seen in left lower lobe. A 2.8 cm indeterminate nodular density was noted in anterior left upper lobe. 7 irregular pulmonary nodules seen throughout the right lung which are pathologically indeterminate but concerning for possible malignancy. MRI of the brain was completed without intracranial abnormality. Additionally, I have personally seen the patient in the pulmonary clinic most r ecently in June 2020. At that time, the patient refused to use inhalers and was not interested in quitting smoking. He underwent a thoracentesis on 11/23/2019 of the left pleural effusion. At that time, the pleural effusion appeared to be a transudate. He has been afebrile in the hospital. No significant leukocytosis is seen. Procalcitonin elevated to 2.05, but difficult to interpret in the setting of ESRD. He is currently on Rocephin and doxycycline. Nasal MRSA screen was negative. Allergies Allergy/AdvReac Type Severity Reaction Status Date / Time codeine AdvReac Intermediate NAUSEA Verified 05/01/21 14:21 Home Medications Medication Instructions Recorded Confirmed Type Victoza 2-Fernando 1.2 mg SUBCUT DAILY 02/09/19 05/01/21 History cholecalciferol (vitamin D3) 2,000 units PO QAM 02/09/19 05/01/21 History lovastatin 80 mg PO HS 02/09/19 05/01/21 History levetiracetam 500 mg PO BID 05/10/19 05/01/21 History sertraline 25 mg PO QAM 11/21/19 05/01/21 History magnesium oxide 400 mg PO QAM 01/17/20 05/01/21 History lidocaine-prilocaine 1 applic TOPICAL DAILY 02/09/20 05/01/21 History glipizide 2.5 mg PO BID 05/01/21 05/01/21 History metoprolol succinate 25 mg PO DAILY 05/01/21 05/01/21 History Patient History Medical History AAA (abdominal aortic aneurysm) Asthma with COPD Atrial fibrillation dx 2015 - no longer taking warfarin - recent fall w/ brain bleed 03/2019 Chronic diastolic heart failure Chronic systolic heart failure CKD (chronic kidney disease), stage IV Daytime sleepiness Diabetes mellitus, type 2 Dyslipidemia ESRD (end stage renal disease) History of CVA (cerebrovascular accident) 2016 - dx w/ a.fib - [facility] - no deficits History of seizure history obtained from dtr - unsure of last seizure History of subdural hemorrhage 03/2019 - fall - [place] ER visit 03/30/2019 --> [facility] HTN (hypertension), benign Nocturnal hypoxemia CARLOS ALBERTO (obstructive sleep apnea) does not tolerate CPAP Restrictive lung disease Severe chronic obstructive pulmonary disease Tobacco use disorder Surgical History History of back surgery History of cataract surgery History of colonoscopy History of esophagogastroduodenoscopy (EGD) History of lumbar spinal fusion x 2 History of tooth extraction Family History Mother Cancer Brother Diabetes Heart disease Social History Smoking Status: Current every day smoker Years Smoked: 65; Cigarettes Per Day: 10; Second Hand Exposure: No; Do You Dip or Chew Tobacco: No; Tobacco Cessation Education Requested by Patient: No Hx Alcohol Use: No Hx Substance Use: No Preferred Language: Serbian Communication Ability: Effective Manager Recruitment Required: No Beliefs That Will Affect Care: None marital status: Current Living Situation: Family How many Children do You have: 4 Other Information That Helps Us Care for You: No Feels Safe at Home: Yes Safety Concerns: Feels Safe At This Time Assistive Devices: Cane, Glasses and Wheelchair Physical Exam Constitutional: WD/WN, vitals as above Respiratory: Diminished lung sounds on the left. No significant wheezes. Cardiovascular: RRR, no murmur, no edema Gastrointestinal (Abdomen): normal bowel sounds, soft, nontender, no hepatosp lenomegaly Musculoskeletal: no cyanosis or clubbing, extremities motor strength 5/5 Skin: no rashes, warm and dry Neurologic: PERRL, EOMI, accommodation nl, no face palsy, no dysarthria Psychiatric: A+Ox3, euthymic affect Results & Data Results & Data ([facility]) Vital Signs (Past 12 Hours) Vital Signs Temp Pulse Resp BP Pulse Ox 05/02/21 08:28 98.4 F 74 19 112/55 L 95 05/02/21 03:50 98.2 F 74 19 109/55 L 97 05/01/21 23:06 98.2 F 70 19 125/64 100 PFTs completed 01/17/2020 which demonstrated an FEV1/FVC of 63 FEV1 1.05 L, 32% FVC 1.66 L, 38% There was a 57% increase postbronchodilator in the FEV1. Lung volumes demonstrated a TLC of 56% predicted. DLCO was 51% predicted. Pulmonary function testing suggestive of mixed obstructive and restrictive defect with a significant postbronchodilator response. Serial x-rays dating back to 2019 demonstrate a large left pleural effusion. PG Care Time/CCT Total # of Minutes Spent Total Time Spent with Patient: Total time spent is greater than 50% in coordination of care (as documented) at patient's floor/unit and/or counseling patient: Coding Level of Care Code 31956 Initial Inpt Care Lvl 3 Diagnoses Pleural effusion, left J90 COPD (chronic obstructive pulmonary disease) J44.9 Multiple pulmonary nodules determined by computed tomography of lung R91.8 Restrictive lung disease J98.4 Shortness of breath R06.02 Smoking F17.200
[2021-05-02] MEDS ORDERED: SODIUM CHLORIDE 0.9% 1000ML 1,000 ML IV PRN (10:29)
[2021-05-02] MEDS ORDERED: EPOETIN ALFA 5,000 UNITS in SYRINGE 0 ML IV SCH (12:00)
--- NOTE | 2021-05-02 13:12 | Neurology Consultation ---
Date of Consultation May 02, 2021 Assessment & Plan (1) Acute left-sided weakness: 1. MRI no acute abnormalities- atrophy and white matter disease-defuse 2. carotid doppler- no significant stenosis 3. TTE- no ASD 4. continue aspirin 81 mg and add plavix 75 mg x 21 days then aspirin 81 mg scotty ne for life 5. optimize HTN, HLD, DM LDL <70 consider 6. will set up EMG as outpatient to r/o regional trauma due to leg crossing 7. PT/OT -for discharge needs- needs walker at home Present on Admission?: Yes (2) ESRD (end stage renal disease): 1. continue current dialysis treatment Present on Admission?: Yes Supervising Physician Co-Signing Physician Notes I have seen and discussed above patient with Dr Niko Batres, neurology I have interviewed and examined this man reviewed the above notes discussed this case with Tiana Beard PA-C and I have reviewed the imaging studies We have a man with end-stage renal disease host of vascular risk factors and history of several months of bilateral lower extremity weakness for which she was seen by Dr. Bledsoe and now a variable history of intermittent left arm and leg weakness with leg weakness being I think a little more constant over the past month or so and the facial weakness and arm weakness being intermittent Whatever the case the history is incredibly variable and the man is clearly cognitively impaired so at this point I think we are unfortunately having to rely on imaging studies which show no evidence for a new stroke but evidence for deep white matter lesions which are slightly worse on the right hemisphere and are associated with a significant degree of cortical atrophy Exam really is not helpful other than the fact that the left foot drop appears to be of peripheral origin with clear weakness in the anterior compartment muscles involving dorsiflexion of the foot and great toes and to some degree eversion. 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 Bledsoe when he was last seen about a month and a half ago There is no real compelling evidence for an acute new CVA and a history is at best vague but I think we can err on the side of caution here and recommend dual antiplatelet treatment for the 3 weeks then discontinuing the Plavix, continuing the aspirin, I will try to set him up for an EMG to be done by Dr. Bledsoe who knows him from the prior evaluation Neurology at this point is going to sign off the case will arrange for outpatient electrodiagnostic studies and follow-up. He can be discharged in our opinion when the internal medicine attending team feels he is stable and no further neurologic evaluation on an inpatient basis is required Niko Batres MD History of Present Illness Reason for Consultation: TIA Requesting Physician: Jaimie Wong MD Attending Physician: Jaimie Wong MD History of Present Illness Mark is an 81 year old male with PMH- ESRD on HD MWF, DM2, chronic AF not on anticoagulation secondary to history of SDH, COPD, chronic hypoxic respiratory failure on nocturnal O2 4 L, CARLOS ALBERTO, chronic diastolic CHF, HTN, AAA, history of SDH, secondary hyperparathyroidism who presents ED secondary to left-sided weakness, foot drop and left-sided facial droop x1 to 2 days. He is x 1 month and is currently living with his daughter, son-in-law and grandson. Over the last several days he has noticed difficulty walking and left foot dragging. While at dialysis he was also told he had left-sided facial droop and he continued to complain of left-sided weakness. He is generally weak, but attributed this to dialysis and complains of SOB with exertion. He is currently in dialysis and thinks the left sided weakness started about a month ago. He is a leg crosser this is the way he usually sits. He thinks he is still weak. When he gets up to walk he needs to take his time til he can get his left leg working. denies CP, SOB, abdominal pain, headache, new bowel issues, N, V, headache. Allergies Allergy/AdvReac Type Severity Reaction Status Date / Time codeine AdvReac Intermediate NAUSEA Verified 05/01/21 14:21 Home Medications Medication Instructions Recorded Confirmed Type Victoza 2-Fernando 1.2 mg SUBCUT DAILY 02/09/19 05/01/21 History cholecalciferol (vitamin D3) 2,000 units PO QAM 02/09/19 05/01/21 History lovastatin 80 mg PO HS 02/09/19 05/01/21 History levetiracetam 500 mg PO BID 05/10/19 05/01/21 History sertraline 25 mg PO QAM 11/21/19 05/01/21 History magnesium oxide 400 mg PO QAM 01/17/20 05/01/21 History lidocaine-prilocaine 1 applic TOPICAL DAILY 02/09/20 05/01/21 History glipizide 2.5 mg PO BID 05/01/21 05/01/21 History metoprolol succinate 25 mg PO DAILY 05/01/21 05/01/21 History Patient History Medical History (Updated 05/02/21 @ 10:57 by Jay Jenkins MD) AAA (abdominal aortic aneurysm) Asthma with COPD Atrial fibrillation dx 2015 - no longer taking warfarin - recent fall w/ brain bleed 03/2019 Chronic diastolic heart failure Chronic systolic heart failure CKD (chronic kidney disease), stage IV Daytime sleepiness Diabetes mellitus, type 2 Dyslipidemia ESRD (end stage renal disease) History of CVA (cerebrovascular accident) 2016 - dx w/ a.fib - [facility] - no deficits History of seizure history obtained from dtr - unsure of last seizure History of subdural hemorrhage 03/2019 - fall - [place] ER visit 03/30/2019 --> [facility] HTN (hypertension), benign Multiple pulmonary nodules determined by computed tomography of lung Nocturnal hypoxemia CARLOS ALBERTO (obstructive sleep apnea) does not tolerate CPAP Pleural effusion, left Restrictive lung disease Severe chronic obstructive pulmonary disease Tobacco use disorder Surgical History History of back surgery History of cataract surgery History of colonoscopy History of esophagogastroduodenoscopy (EGD) History of lumbar spinal fusion x 2 History of tooth extraction Family History Mother Cancer Brother Diabetes Heart disease Social History Smoking Status: Current every day smoker Years Smoked: 65; Cigarettes Per Day: 10; Second Hand Exposure: No; Do You Dip or Chew Tobacco: No; Tobacco Cessation Education Requested by Patient: No Hx Alcohol Use: No Hx Substance Use: No Preferred Language: Tamazight Communication Ability: Effective Lang Path Therapist Required: No Beliefs That Will Affect Care: None marital status: Current Living Situation: Family How many Children do You have: 4 Other Information That Helps Us Care for You: No Feels Safe at Home: Yes Safety Concerns: Feels Safe At This Time Assistive Devices: Cane, Glasses and Wheelchair Review of Systems Review of Systems: All systems reviewed & are unremarkable except as noted in HPI & below Physical Exam Physical Exam: Physical Exam: Constitutional: appearance nourished, healthy and normal Ears, Nose, Mouth and Throat: mucous membranes moist, no injection and skin normal, eyes normal Cardiovascular: normal S-1 and S-2 and loud holosystolic murmur Respiratory: course breath sounds Musculoskeletal: no peripheral edema and good distal pulses Skin: no stigmata of neurocutaneous disease noted and normal and intact Eyes: roving eye movements , non focal NEUROLOGIC EXAMINATION: Mental status: Alert and interactive Oriented to person Speech fluent with no evidence of aphasia Cranial Nerves no facial droop Reflexes: Deep tendon reflexes absent bilateral LE Sensory: sensation to vibration and light touch absent LLE to knee Gait/Stance: Posture lying in bed in dialysis unit Strength: hand hearing specialist, biceps 4+/5, hip flex bilaterally 4+/5, plantar flex ext 4+/5 right 4/5 left Results & Data ([facility]) Vital Signs (Past 12 Hours) Vital Signs Temp Pulse Pulse Pulse Resp BP BP 05/02/21 13:00 82 95/40 L 05/02/21 12:49 75 109/53 L 05/02/21 12:39 36.4 C L 68 05/02/21 12:13 36.4 C L 67 18 119/60 05/02/21 08:28 36.9 C 74 19 112/55 L 05/02/21 03:50 36.8 C 74 19 109/55 L Pulse Ox 05/02/21 13:00 05/02/21 12:49 05/02/21 12:39 05/02/21 12:13 96 05/02/21 08:28 95 05/02/21 03:50 97 Laboratory Results Abnormal lab results 05/01/21 05/01/21 05/01/21 Range/Units 13:25 13:25 13:25 RBC 3.78 L (4.7-6.1) M/uL Hgb 11.6 L (14.0-18.0) g/dL Hct 34.4 L (42-52) % RDW Std Deviation 49.8 H (36.4-46.3) fL RDW Coeff of Kiah 15.0 H (11.5-14.5) % Neut # (Auto) 6.98 H (1.4-6.5) K/uL Lymph # (Auto) 1.17 L (1.2-3.4) K/uL [place] # (Auto) 0.75 H (0.11-0.59) K/uL Immature Gran # (Auto) 0.07 H (0.00-0.02) K/uL Sodium 133 L (136-145) mmol/L BUN 36 H (7-18) mg/dl Creatinine 5.35 H* (0.6-1.4) mg/dl BUN/Creatinine Ratio 6.8 L (10-20) Glucose 166 H (70-99) mg/dl POC Glucose (70-99) mg/dl Hemoglobin A1c (4.5-5.6) % Magnesium 2.7 H (1.8-2.4) mg/dl AST 10 L (15-37) U/L Albumin 3.2 L (3.4-5.0) gm/dl Globulin 4.2 H (2.5-4.0) gm/dl Albumin/Globulin Ratio 0.8 L (0.9-2) Procalcitonin 2.05 H (0-0.5) ng/ml 05/01/21 05/02/21 05/02/21 Range/Units 20:13 06:16 06:16 RBC 3.33 L (4.7-6.1) M/uL Hgb 10.4 L (14.0-18.0) g/dL Hct 30.3 L (42-52) % RDW Std Deviation 49.2 H (36.4-46.3) fL RDW Coeff of Kiah 14.9 H (11.5-14.5) % Neut # (Auto) (1.4-6.5) K/uL Lymph # (Auto) 1.07 L (1.2-3.4) K/uL [place] # (Auto) 0.73 H (0.11-0.59) K/uL Immature Gran # (Auto) 0.03 H (0.00-0.02) K/uL Sodium 134 L (136-145) mmol/L BUN 45 H (7-18) mg/dl Creatinine 5.87 H* D (0.6-1.4) mg/dl BUN/Creatinine Ratio 7.6 L (10-20) Glucose (70-99) mg/dl POC Glucose 140 H (70-99) mg/dl Hemoglobin A1c (4.5-5.6) % Magnesium (1.8-2.4) mg/dl AST (15-37) U/L Albumin (3.4-5.0) gm/dl Globulin (2.5-4.0) gm/dl Albumin/Globulin Ratio (0.9-2) Procalcitonin (0-0.5) ng/ml 05/02/21 05/02/21 Range/Units 06:16 11:09 RBC (4.7-6.1) M/uL Hgb (14.0-18.0) g/dL Hct (42-52) % RDW Std Deviation (36.4-46.3) fL RDW Coeff of Kiah (11.5-14.5) % Neut # (Auto) (1.4-6.5) K/uL Lymph # (Auto) (1.2-3.4) K/uL [place] # (Auto) (0.11-0.59) K/uL Immature Gran # (Auto) (0.00-0.02) K/uL Sodium (136-145) mmol/L BUN (7-18) mg/dl Creatinine (0.6-1.4) mg/dl BUN/Creatinine Ratio (10-20) Glucose (70-99) mg/dl POC Glucose 130 H (70-99) mg/dl Hemoglobin A1c 7.4 H (4.5-5.6) % Magnesium (1.8-2.4) mg/dl AST (15-37) U/L Albumin (3.4-5.0) gm/dl Globulin (2.5-4.0) gm/dl Albumin/Globulin Ratio (0.9-2) Procalcitonin (0-0.5) ng/ml Diagnostic Findings CT head-There is no hemorrhage, mass effect, or evidence of acute territorial ischemia by CT criteria. CT chest- There is a small to moderate and at least partially loculated left pleural effusion/collection with overlying pleural thickening. The sterility of this fluid cannot be evaluated by CT. There is atelectasis/consolidation of the left lower lung. Correlate for evidence of pneumonia. There is a 2.8 cm indeterminate nodular density in the anterior left upper lobe. A pulmonary mass lesion could have this appearance. Additionally, there are at least 7 irregular pulmonary nodules scattered throughout the right lung. These are pathologically indeterminant, but highly suspicious for metastatic disease. An indeterminant lesion is partially visualized in the upper pole of the right kidney. Consider correlation with a contrast-enhanced abdominal CT. Cardiomegaly and emphysema. Intralobular septal thickening suggests a component of congestive failure. Clinical correlation will be required. MRI brain-No acute intracranial abnormality. Carotid doppler-Atherosclerotic plaque with no sonographic evidence of hemodynamically significant stenosis in the right or left carotid arterial system. Antegrade flow is shown in the vertebral arteries. TTE- 50-55% EF no ASD
--- NOTE | 2021-05-02 14:18 | Consultation Report ---
DATE OF CONSULTATION: 05/02/2021 NEPHROLOGY CONSULTATION NOTE REASON FOR CONSULT: Dialysis patient admitted with stroke-like symptoms. HISTORY OF PRESENT ILLNESS: The patient is an 81-year-old white male with end-stage renal disease, on hemodialysis Bgnolm-Zlidpumce-Bxzhen, type 2 diabetes, chronic atrial fibrillation, not on anticoagulation secondary to history of subdural hematoma, COPD, chronic hypoxic respiratory failure related with COPD, on nocturnal oxygen 4 liters, obstructive sleep apnea, chronic diastolic congestive heart failure, hypertension, AAA, history of subdural hematoma, who presented to the Emergency Department yesterday with left-sided weakness, foot drop and left-sided facial droop for the last few days. He already had CT scan of his head as well as MRI of his head, and there is no major stroke noted on the imaging test. He feels his symptoms are already starting to get better. He has an AV fistula and his last dialysis was on Wednesday without any problem. He was also noted to have some large left-sided pleural effusion with consolidation and has a history of cough for about the last 1 month with some productive white sputum. He is getting broad spectrum antibiotics to treat pneumonia and pulmonary consult is pending. He does not appear to be in overt respiratory distress from pulmonary congestion or any major electrolyte problem. PAST MEDICAL AND SURGICAL HISTORY: As detailed in the HPI. On top of that, he also has a history of back surgery, cataract surgery, colonoscopy, lumbar spinal fusion, tooth extraction. FAMILY HISTORY: Negative for renal disease or dialysis. SOCIAL HISTORY: He is a current every day smoker and has smoked for 65 years. No alcohol. He is and lives with his family. He uses walker for ambulation. HOME MEDICATIONS: List was reviewed in detail and includes Victoza, vitamin D, lovastatin, Keppra, sertraline, magnesium oxide, lidocaine, glipizide and metoprolol. ALLERGIES: CODEINE. REVIEW OF SYSTEMS: As detailed in HPI. Unless stated otherwise, 12 systems reviewed and negative. PHYSICAL EXAMINATION: GENERAL: Elderly white male who is chronically ill appearing. He is not in overt respiratory distress at this time. He is awake, alert, oriented and was able to give me account of his medical problem. HEENT: Mucous membrane is moist. NECK: Supple. No jugular venous distention. CHEST: Bilaterally clear to auscultation, but prolonged expiration and occasional rhonchi heard. CARDIOVASCULAR: Irregular rate and irregular rhythm. Systolic murmur heard. ABDOMEN: Soft, nontender. EXTREMITIES: Show no edema. SKIN: Shows no rashes. NEUROLOGIC: At this time, he does not appear to have any major facial palsy or facial droop. Was able to move all 4 extremities. Normal speech. VITAL SIGNS: Blood pressure 95/40, pulse rate 82, temperature 36.4, 96% on room air. LABORATORY TESTS: Reviewed in detail. Does not have any electrolyte imbalance. Hemoglobin is 10.4, platelet count is 203, WBC count is 7.23. BUN 45, creatinine 5.87, sodium 134, potassium 4.6. Imaging was reviewed. CT chest scan shows [id number] loculated pleural effusion on the left side. There is also a mention of indeterminate lesion in the upper pole of the right kidney. ASSESSMENT AND PLAN: An 81-year-old male with extensive medical problem list including end-stage renal disease, on hemodialysis Csselm-Cbrvfedhi-Aoxifh, admitted with stroke-like symptoms. I have been consulted for dialysis management. End-stage renal disease: Today is his dialysis day. At this point, he does not have any major fluid overload issue or electrolyte problem. His blood pressure is running on the low side and he is still within 24 hours of his stroke-like symptoms. Fortunately, there does not appear to be a major stroke as evidenced by imaging test. Given the scheduling challenge for dialysis today, he will be getting dialysis most likely tomorrow. In any case, this might be better given his somewhat low blood pressure today.
[2021-05-02] MEDS ORDERED: cefTRIAXone SODIUM 2,000 MG in DEXTROSE 5% 50 ML IV SCH (17:00)
[2021-05-02 18:45] LABS: Hepatitis B Surface Ab Quant 4.07 mIU/mL (>or=10mIU/mL Immune); Hepatitis B Surface Antibody Non-Immune
[2021-05-02 18:55] LABS: Hepatitis B Surf Ag Rflx Conf Neg (Neg)
--- NOTE | 2021-05-02 19:16 | Hospitalist Progress Note ---
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 Per PCP noted in Epic L facial droop was noted, inability to puff left cheek, L tongue deviation and L arm weakness. CT Head negative for acute abnormality. MRI of the head showed no acute intracranial abnormality. Carotid U/S showed atherosclerotic plaque with no sonographic evidence of hemodynamically significant stenosis in the right or left carotid arterial system ECHO showed no evidence of interatrial shunt defect Last known well on Wednesday, no TPA indicated given sx resolution and time Neuro on board recommended aspirin and plavix for 21 days, then aspirin for life Neuro will arrange for outpatient EMG for the foot droop Ok from neuro standpoint to discharge home Continue high dose statin Continue PT/OT eval (3) Large pleural effusion: CXR shows Large Left pleural effusion with consolidation Procalcitonin elevated at 2.05 Continue Rocephin and doxycycline e Pulm on board No plan for thoracocentesis pleural effusion seems to be chronic Saturated well on RA (4) ESRD (end stage renal disease): HD Wednesday Nephro on board Plan to HD today (5) Diabetes mellitus, type 2: Last A1c 6.4 03/18/2021 Most recent A1c 7.4 On Lantus/NovoLog per protocol Continue to hold glipizide and Victoza during the hospital course (6) Chronic diastolic heart failure: Volume status managed with HD Continue metoprolol Daily weights, strict I's and O's (7) COPD (chronic obstructive pulmonary disease): Follows [facility] Pulm refuses inhalers no acute exacerbation consult Pulm 2/2 to large pleural effusion (8) Atrial fibrillation: Metoprolol for rate control Currently atrial flutter Off anticoagulation secondary to SDH in 2019 (9) Anemia: Anemia of chronic renal disease hgb 10.4 today (10) Nocturnal hypoxemia: Continue oxygen suppplement with 4L of O2 at HS (11) Multiple pulmonary nodules determined by computed tomography of lung: CT chest showed 2.8 cm indeterminate nodular density in the anterior left upper lobe. There are at least 7 irregular pulmonary nodules scattered throughout the right lung. History tobacco abuse Recommend outpatient short interval CT chest without contrast in 4 to 6 weeks after treatment with antibiotics. (12) HTN (hypertension), benign: BP on lower side in ED, which is unusual per daughter Continue metoprolol (13) Dyslipidemia: continue high dose statin (14) Tobacco abuse: Counseling on smoking cessation (15) DVT prophylaxis: SCD/TEDS for now monitor daily need for chemical prophylaxis Dispo: PCU DNR/DNI PCP: Darlene Admission and Anticipated Discharge Date Admission Date: May 01, 2021 Subjective Pt was seen and examined for stroke like symptoms Sitting at the edge of the bed with no distress Pt said that he feels fine He is getting ready to get dialyzed today denies any chest pain, palpitation, dizziness and SOB Review of Systems Review of Systems: All systems reviewed & are unremarkable except as noted in Subjective Physical Exam Physical Exam: General- No acute distress Head- atraumatic Eyes- PERRL, EOMI, ENT- oropharynx clear Neck- supple, no JVD Lungs- clear to auscultation Heart- irregular rhythm; + murmur Abdomen- normal bowel sounds, soft, nontender Extremities- no calf tenderness Neuro- alert, oriented x 3; PERRL, EOMI; no facial palsy; no dysarthria Skin- warm & dry Results & Data Results & Data ([facility]) Vital Signs (Past 12 Hours) Vital Signs Temp Pulse Pulse Pulse Resp BP BP 05/02/21 19:14 36.6 C 88 18 118/62 05/02/21 17:09 36.4 C L 67 89 122/60 05/02/21 16:37 82 115/71 05/02/21 16:14 74 05/02/21 15:40 81 119/64 05/02/21 15:20 70 104/58 L 05/02/21 15:00 87 115/63 05/02/21 14:40 78 100/56 L 05/02/21 14:20 70 103/59 L 05/02/21 14:00 54 L 99/54 L 05/02/21 13:40 75 100/53 L 05/02/21 13:20 80 104/56 L 05/02/21 13:00 82 95/40 L 05/02/21 12:49 75 109/53 L 05/02/21 12:39 36.4 C L 68 05/02/21 12:13 36.4 C L 67 18 119/60 05/02/21 08:28 36.9 C 74 19 112/55 L 05/02/21 08:00 72 Pulse Ox 05/02/21 19:14 96 05/02/21 17:09 05/02/21 16:37 05/02/21 16:14 05/02/21 15:40 05/02/21 15:20 05/02/21 15:00 05/02/21 14:40 05/02/21 14:20 05/02/21 14:00 05/02/21 13:40 05/02/21 13:20 05/02/21 13:00 05/02/21 12:49 05/02/21 12:39 05/02/21 12:13 96 05/02/21 08:28 95 05/02/21 08:00 (1) Atrial fibrillation Atrial fibrillation type: paroxysmal Qualified Code(s): I48.0 - Paroxysmal atrial fibrillation
[2021-05-02] MEDS: LOVASTATIN 20 MG TAB PO SCH (20:26)
[2021-05-03 06:15] LABS: Basophils # (auto) 0.02 K/uL (0-0.2); Basophils % (auto) 0.3 %; Eosinophils # (auto) 0.11 K/uL (0-0.5); Eosinophils % (auto) 1.7 %; Hematocrit (blood only) 30.7 % (42-52); Hemoglobin 10.3 g/dL (14.0-18.0); Immature Granulocytes # (auto) 0.02 K/uL (0.00-0.02); Immature Granulocytes % (auto) 0.3 %; Lymphocytes # (auto) 0.93 K/uL (1.2-3.4); Lymphocytes % (auto) 14.5 %; Mean Corpuscular Hemoglobin 31.2 pg (25-34); Mean Corpuscular Hgb Conc 33.6 g/dL (32-36); Mean Platelet Volume 9.1 fL (7.4-10.4); Monocytes # (auto) 0.69 K/uL (0.11-0.59); Monocytes % (auto) 10.7 %; Neutrophils # (auto) 4.65 K/uL (1.4-6.5); Neutrophils % (auto) 72.5 %; Platelet Count 218 K/uL (130-400); RDW Coefficient of Variation 14.8 % (11.5-14.5); RDW Standard Deviation 50.4 fL (36.4-46.3); White Blood Count 6.42 K/uL (4.8-10.8)
[2021-05-03 06:58] LABS: BUN Creatinine Ratio 7.4 (10-20); Calcium 8.7 mg/dl (8.5-10.1); Creatinine Clr Calc Pharmacy 15.5 ml/min; Est GFR (African American) 13.1 ml/min; Est GFR (Non-African American) 11.3 ml/min; Potassium 4.4 mmol/L (3.5-5.1)
[2021-05-03] MEDS: INSULIN ASPART 100 UNITS/ML 3 ML PEN SC SCH ×2 (08:16→12:19)
[2021-05-03] MEDS: INSULIN GLARGINE SOLOSTAR 100 UNITS/ML 3 ML PEN SC SCH (08:17)
[2021-05-03] MEDS: CHOLECALCIFEROL 1,000 UNITS 25 MCG TAB PO SCH (08:52)
[2021-05-03] MEDS: ASPIRIN 81 MG ECTAB PO SCH (08:52)
[2021-05-03] MEDS: levETIRAcetam 500 MG TAB PO SCH (08:53)
[2021-05-03] MEDS: DOXYCYCLINE HYCLATE 100 MG CAP PO SCH (08:53)
[2021-05-03] MEDS: METOPROLOL SUCC 25MG EXT REL TAB PO SCH (08:54)
[2021-05-03] MEDS: SERTRALINE HCL 50 MG TABLET PO SCH (08:54)
[2021-05-03] MEDS ORDERED: CLOPIDOGREL BISULFATE 75 MG TAB PO SCH (09:00)
--- NOTE | 2021-05-03 10:02 | Nephrology Progress Note ---
Date of Service May 03, 2021 Assessment & Plan (1) ESRD (end stage renal disease) on dialysis: Patient with ESRD on dialysis Wednesday. He had dialysis yesterday with a net loss of 2 L. Electrolytes are stable and no signs of volume overload. No indication for dialysis today. Next dialysis will be on Wednesday. Admission and Anticipated Discharge Date Admission Date: May 01, 2021 Subjective Seen in follow-up for ESRD and strokelike symptoms. He still complains of left- sided weakness. No shortness of breath. He had dialysis yesterday. Review of Systems Review of Systems: All systems reviewed & are unremarkable except as noted in HPI & below Physical Exam Physical Exam: General exam: Appears comfortable, no acute distress HEENT: Pupils are equal and reactive to light Neck: No JVD, neck is supple trachea is midline Respiratory system: Clear breath sounds bilaterally. Gastrointestinal: Abdomen is soft, non distended, non tender, bowel sounds are present CVS: Regular rate and rhythm. No murmurs, rubs or gallops Musculoskeletal: No joint or muscle tenderness Extremities: Non tender, no edema, peripheral pulses are present Neuro: Oriented, no tremors, Mild left-sided weakness Skin: No rashes Results & Data ([facility]) Vital Signs (Past 12 Hours) Vital Signs Temp Pulse Pulse Resp BP Pulse Ox 05/03/21 08:47 87 111/58 L 05/03/21 08:14 37.0 C 41 L 18 116/53 L 99 05/03/21 04:02 36.7 C 75 19 101/62 98 05/03/21 03:34 36.9 C 68 19 117/67 99 05/02/21 22:46 37.3 C 92 H 19 110/69 98 05/02/21 22:20 76 Laboratory Results 05/03/21 05:38 05/03/21 05:38 WBC 6.42 RBC 3.30 L MCV 93.0 MCH 31.2 MCHC 33.6 RDW Std Deviation 50.4 H RDW Coeff of Kiah 14.8 H Plt Count 218 MPV 9.1
--- NOTE | 2021-05-03 13:02 | Hospitalist Progress Note ---
Date of Service May 03, 2021 Assessment & Plan (1) Stroke-like symptoms: (2) Foot drop, left: This is a 81-year-old male who has significant past medical history of ESRD on HD MWF, T2DM, chronic atrial fibrillation not on anticoagulation secondary to history of SDH, COPD, chronic hypoxic respiratory failure on nocturnal O2 4 L, CARLOS ALBERTO, chronic diastolic CHF, HTN, AAA, history of SDH on seizure prophylaxis, secondary hyperparathyroidism who presents ED secondary to left-sided weakness, foot drop and left-sided facial droop x1 to 2 days. Per PCP noted in Epic L facial droop was noted, inability to puff left cheek, L tongue deviation and L arm weakness. CT Head negative for acute abnormality. MRI of the head showed no acute intracranial abnormality. Carotid U/S showed atherosclerotic plaque with no sonographic evidence of hemodynamically significant stenosis in the right or left carotid arterial system ECHO showed no evidence of interatrial shunt defect Last known well on Wednesday, no TPA indicated given sx resolution and time Neuro on board recommended aspirin and plavix for 21 days, then aspirin for life Neuro will arrange for outpatient EMG for the foot droop Ok from neuro standpoint to discharge home Continue high dose statin, plavix and aspirin Follow up with neurology in 3 to 4 weeks Continue PT/OT eval Fall precaution (3) Large pleural effusion: CXR shows Large Left pleural effusion with consolidation Procalcitonin elevated at 2.05 Continue Rocephin and doxycycline e Pulm on board No plan for thoracocentesis pleural effusion seems to be chronic Saturated well on RA (4) ESRD (end stage renal disease): HD Wednesday Nephro on board Plan to HD today (5) Diabetes mellitus, type 2: Last A1c 6.4 03/18/2021 Most recent A1c 7.4 On Lantus/NovoLog per protocol Continue to hold glipizide and Victoza during the hospital course (6) Chronic diastolic heart failure: Volume status managed with HD Continue metoprolol Daily weights, strict I's and O's (7) COPD (chronic obstructive pulmonary disease): Follows [facility] Pulm refuses inhalers no acute exacerbation consult Pulm 2/2 to large pleural effusion (8) Atrial fibrillation: Metoprolol for rate control Currently atrial flutter Off anticoagulation secondary to SDH in 2019 (9) Anemia: Anemia of chronic renal disease hgb 10.3 today (10) Nocturnal hypoxemia: Continue oxygen suppplement with 4L of O2 at HS (11) Multiple pulmonary nodules determined by computed tomography of lung: CT chest showed 2.8 cm indeterminate nodular density in the anterior left upper lobe. There are at least 7 irregular pulmonary nodules scattered throughout the right lung. History tobacco abuse Recommend outpatient short interval CT chest without contrast in 4 to 6 weeks after treatment with antibiotics. (12) HTN (hypertension), benign: BP on lower side in ED, which is unusual per daughter Continue metoprolol (13) Dyslipidemia: continue high dose statin (14) Tobacco abuse: Counseling on smoking cessation (15) DVT prophylaxis: SCD/TEDS for now monitor daily need for chemical prophylaxis Dispo: PCU DNR/DNI PCP: Darlene Discharge home today Admission and Anticipated Discharge Date Admission Date: May 01, 2021 Subjective Pt was seen and examined for stroke like symptoms Sitting at the edge of the bed with no distress Pt said that he feels fine He had his HD done yesterday He is very anxious to go home today denies any chest pain, palpitation, dizziness and SOB Review of Systems Review of Systems: All systems reviewed & are unremarkable except as noted in Subjective Physical Exam Physical Exam: General- No acute distress Head- atraumatic Eyes- PERRL, EOMI, ENT- oropharynx clear Neck- supple, no JVD Lungs- clear to auscultation Heart- irregular rhythm; + murmur Abdomen- normal bowel sounds, soft, nontender Extremities- no calf tenderness Neuro- alert, oriented x 3; PERRL, EOMI; no facial palsy; no dysarthria Skin- warm & dry Results & Data Results & [facility] ([facility]) Vital Signs (Past 12 Hours) Vital Signs Temp Pulse Resp BP Pulse Ox 05/03/21 12:18 37.0 C 84 18 118/65 94 05/03/21 08:47 87 111/58 L 05/03/21 08:14 37.0 C 41 L 18 116/53 L 99 05/03/21 04:02 36.7 C 75 19 101/62 98 05/03/21 03:34 36.9 C 68 19 117/67 99 (1) Atrial fibrillation Atrial fibrillation type: paroxysmal Qualified Code(s): I48.0 - Paroxysmal atrial fibrillation
[2021-05-03] MEDS ORDERED: STROKE PATIENT DISCHARGE STA (13:45)
--- NOTE | 2021-05-04 08:02 | Electrocardiogram Report ---
Test Reason : Blood Pressure : / mmHG Vent. Rate : 073 BPM Atrial Rate : 340 BPM P-R Int : 000 ms QRS Dur : 102 ms QT Int : 398 ms P-R-T Axes : 000 084 084 degrees QTc Int : 438 ms Atrial fibrillation Abnormal ECG When compared with ECG of 02-MAY-2021 06:24, No significant change Confirmed by Tim Zhong ([id number]) on 05/04/2021 8:02:14 AM Referred By: REFERRED SELF Confirmed By:Tim Zhong
[2021-05-05 06:22] LABS: Hepatitis BE Antibody Nonreactive; Hepatitis BE Antigen Nonreactive
--- NOTE | 2021-05-06 09:16 | Discharge Summary ---
Date of Service May 03, 2021 Admission HPI Per Admitting Provider This is a 81-year-old male who has significant past medical history of ESRD on HD MWF, T2DM, chronic atrial fibrillation not on anticoagulation secondary to history of SDH, COPD, chronic hypoxic respiratory failure on nocturnal O2 4 L, CARLOS ALBERTO, chronic diastolic CHF, HTN, AAA, history of SDH, secondary hyperparathyroidism who presents ED secondary to left-sided weakness, foot drop and left-sided facial droop x1 to 2 days. Daughter is at bedside. Patient is unfortunately since last month and is currently living with his daughter, son-in-law and grandson. Over the last several days he has noticed difficulty walking and left foot dragging. Yesterday while at dialysis he was also told he had left-sided facial droop and he continued to complain of left- sided weakness. His daughter at bedside last saw him on Wednesday and he was generally weak, but attributed this to dialysis. At that time she did not notice any facial droop. Patient is uncertain at exact time of onset. He denies any difficulty swallowing or slurred speech. He denies any recent illness, fever, chills, sweats, syncope, fall, chest pain, shortness breath at rest, hemoptysis, nausea, vomiting, abdominal pain, melena, hematochezia or d iarrhea. Patient does make minimal urine and denies hematuria. He does elicit to a cough that has been present for approximately 1 month. Cough is productive of white sputum. He also admits to increasing shortness of breath with exertion. Patient was seen and evaluated by PCP today who documented left-sided facial droop, difficulty puffing out left-sided cheek as well as left-sided weakness. Per daughter she feels symptoms are much improved currently than this morning. In ED patient remained hemodynamically stable. Lab work notable for H&H 11.6 and 34.4, sodium 133, BUN 36, creatinine 5.35, glucose 166, mag 2.7. Head CT revealed a chronic right orbital floor fracture but no other acute abnormality including hemorrhage or CVA. Chest x-ray was notable for large left pleural effusion associated with atelectasis/infiltrate within the left lower lung. Patient follows with [facility] pulmonology in approximately 3 years ago also had a large pleural effusion requiring thoracentesis. Daughter states it was attributed to CHF at dialysis. Admission Exam Per Admitting Provider Constitutional: Elderly, male, chronic ill-appearing, WD/WN, vitals as above, NAD, sitting up in bed, pleasant, conversing easily Head: Normocephalic, Atraumatic Eyes: PERRL, conjunctivae normal, anicteric sclerae ENMT: external ear and nose normal, oropharynx normal Neck: trachea midline, no thyromegaly normal visual inspection Respiratory: normal respiratory effort, lungs clear to auscultation on right, breath sounds diminished on left,, no wheeze, rales, rhonchi. Normal insp/exp effort, no accessory muscle use . Saturating 96% on room air. Cardiovascular: Irregular rate, irregular rhythm, 2/6 TRISTON at RUSB, no edema Vessels: no JVD or carotid bruit Chest: normal inspection of chest Abdomen: normal bowel sounds, soft, nontender, no hepatosplenomegaly Musculoskeletal: no cyanosis or clubbing, extremities motor strength 5/5 Skin: no rashes, warm and dry normal turgor Neurologic: PERRL, EOMI, accommodation nl, no face palsy, no dysarthria CN's II-XI intact bilaterally and moves all extremities Psychiatric: A+Ox3, euthymic affect Lymphatic: no cervical or axillary lymphadenopathy : deferred Principal Diagnosis (1) Stroke-like symptoms: (2) Foot drop, left: (3) Large pleural effusion: (4) ESRD (end stage renal disease): (5) Diabetes mellitus, type 2: (6) Chronic diastolic heart failure (7) COPD (chronic obstructive pulmonary disease): (8) Atrial fibrillation (9) Anemia: (10) Nocturnal hypoxemia: (11) Multiple pulmonary nodules determined by computed tomography of lung: (13) Tobacco abuse: Discharge Exam General- No acute distress Head- atraumatic Eyes- PERRL, EOMI, ENT- oropharynx clear Neck- supple, no JVD Lungs- clear to auscultation Heart- irregular rhythm; + murmur Abdomen- normal bowel sounds, soft, nontender Extremities- no calf tenderness Neuro- alert, oriented x 3; PERRL, EOMI; no facial palsy; no dysarthria Skin- warm & dry Discharge Data Allergies Allergy/AdvReac Type Severity Reaction Status Date / Time codeine AdvReac Intermediate NAUSEA Verified 05/01/21 14:21 Consultations 05/01/21 15:17 ED Decision to Admit Stat 05/01/21 15:23 Consult Nephrology Routine Consult Neurology Routine 05/01/21 16:02 Consult Pulmonology Routine Ordered Studies 05/01/21 13:20 CT head/brain wo con Stat 05/01/21 15:56 CT chest diagnostic wo con Stat 05/01/21 16:02 MR brain wo con Routine 05/01/21 19:02 US carotid doppler BI Routine ULTRASOUND OF THE CAROTID ARTERIES CLINICAL HISTORY: Strokelike symptoms. COMPARISON STUDY: No priors. TECHNIQUE: Real-time, grayscale, and color Doppler sonography of the carotid arteries is performed. Images are reviewed in the transverse and longitudinal planes. FINDINGS: Blood pressures were not assessed due to limb restrictions. The carotid arteries are patent bilaterally and demonstrate antegrade flow. There is moderate echogenic shadowing atherosclerotic plaque seen in the carotid bulbs bilaterally. Normal doppler arterial waveforms are seen throughout. Velocity measurements are listed below. Common carotid peak systolic velocity (cm/sec): RIGHT: 62 LEFT: 92 ICA proximal peak systolic velocity (cm/sec): RIGHT: 105 LEFT: 107 ICA mid peak systolic velocity (cm/sec): RIGHT: 110 LEFT: 71 ICA distal peak systolic velocity (cm/sec): RIGHT: 47 LEFT: 62 ICA/CC peak systolic ratio: RIGHT: 1.8 LEFT: 1.2 Antegrade flow was shown in the vertebral arteries. The external carotid arteries are patent. IMPRESSION: 1. Atherosclerotic plaque with no sonographic evidence of hemodynamically significant stenosis in the right or left carotid arterial system. 2. Antegrade flow is shown in the vertebral arteries. ACT 112: Negative or not required by law. Electronically signed by: Aman Valverde M.D. 05/02/2021 7:05 AM Dictated: 05/02/21 0703Transcribed: 05/02/21 0703 MRI OF THE BRAIN WITHOUT IV CONTRAST CLINICAL HISTORY: Strokelike symptoms. Left-sided facial droop. COMPARISON STUDY: CT of the brain dated 05/01/2021. TECHNIQUE: MRI of the brain was performed utilizing various T1 and T2-weighted sequences in the axial, sagittal, and coronal planes. IV contrast was not administered for this examination. FINDINGS: Brain parenchyma: There is age-related involutional change noting [id number] subcortical and periventricular microangiopathic disease. There is no hemorrhage or mass effect. There is no restricted diffusion to suggest acute ischemia. Chou-white matter differentiation is preserved. No extra-axial fluid collection is seen. The cerebellar tonsils are normal in configuration. Ventricles, sulci, and cisterns: Prominent secondary to involutional change. Pituitary and sella: Unremarkable. Intracranial vasculature: Normal flow voids are maintained at the skull base. Orbits: There is evidence of a chronic right orbital floor injury. Orbital contents are normal in appearance noting bilateral ocular lens implants. Sinuses and mastoids: Clear. Calvarium: Unremarkable. Cervical cord: Partially visualized cervical spinal cord is normal in morphology and signal intensity. IMPRESSION: No acute intracranial abnormality. ACT 112: Negative or not required by law. Electronically signed by: Aman Valverde M.D. 05/02/2021 7:21 AM Dictated: 05/02/21717Transcribed: 05/02/21717 CT SCAN OF THE CHEST WITHOUT IV CONTRAST CLINICAL HISTORY: Left pleural effusion. COMPARISON STUDY: Chest x-ray dated 05/01/2021. Chest CT dated 02/13/2019. TECHNIQUE: CT scan of the thorax was performed from the thoracic inlet to the upper abdomen. Images are reviewed in the axial, sagittal, and coronal planes. IV contrast was not administered for this examination as per the referring clinician. A dose lowering technique was utilized adhering to the principles of ALARA. CT DOSE: 654.70 mGycm FINDINGS: Thyroid: Imaged portions of the thyroid gland are normal in size and attenuation. Thoracic aorta: There is atherosclerotic calcification of the thoracic aorta, which is normal in caliber and demonstrates standard 3-vessel arch anatomy. Heart: The heart is enlarged and without pericardial effusion. The coronary arteries are densely calcified. Lungs and pleural spaces: Mild emphysematous change is noted. There is a small to moderate and at least partially loculated left pleural effusion/collection is seen at the left lung base. There is consolidation of the left lower lung with surrounding pleural thickening. There is mild diffuse intralobular septal thickening. The trachea and central airways are clear. No pleural effusion is seen on the right. A 2.8 cm nodular density is seen in the anterior left upper lobe on image #130. Numerous pulmonary nodules are concerning for metastatic di sease. There are at least 7 nodules scattered throughout the right lung. The largest is in the right middle lobe on image #186 measuring 1.3 cm. Additional artist representative nodules are seen in the right upper lobe on image #143 and in the right lower lobe on images #185, #191, and #221. There are scattered calcified granulomas. Mediastinum: There is no mediastinal lymphadenopathy. Elicia: Not well assessed without IV contrast. Axillae: There is no axillary lymphadenopathy. Upper abdomen: There is a small hiatal hernia. Bilateral adrenal nodules measure up to [address] criteria for fat-containing adenomas. An indeterminant lesion is partially visualized in the upper pole of the right kidney. This measures at least 3.5 cm. Skeletal structures: The skeletal structures are osteopenic. There are healed left-sided rib fractures. Degenerative change is noted in the thoracic spine. No lytic or blastic bony lesions are seen. Soft tissues: Gynecomastia is noted. IMPRESSION: 1. There is a small to moderate and at least partially loculated left pleural effusion/collection with overlying pleural thickening. The sterility of this fluid cannot be evaluated by CT. 2. There is atelectasis/consolidation of the left lower lung. Correlate for evidence of pneumonia. 3. There is a 2.8 cm indeterminate nodular density in the anterior left upper lobe. A pulmonary mass lesion could have this appearance. 4. Additionally, there are at least 7 irregular pulmonary nodules scattered throughout the right lung. These are pathologically indeterminant, but highly suspicious for metastatic disease. 5. An indeterminant lesion is partially visualized in the upper pole of the right kidney. Consider correlation with a contrast-enhanced abdominal CT. 6. Cardiomegaly and emphysema. Intralobular septal thickening suggests a component of congestive failure. Clinical correlation will be required. 7. Additional findings as above. ACT 112: Negative or not required by law. Electronically signed by: Aman Valverde M.D. 05/01/2021 5:23 PM Dictated: 05/01/21 1702Transcribed: 05/01/[address] SCAN OF THE BRAIN WITHOUT IV CONTRAST CLINICAL HISTORY: Strokelike symptoms. COMPARISON STUDY: CT of the brain dated 02/02/2020. TECHNIQUE: Unenhanced axial CT scan of the brain is performed from the vertex to the skull base. A dose lowering technique was utilized adhering to the principl es of IGGY. CT DOSE: 729.78 mGycm FINDINGS: Brain parenchyma: There are age-related involutional changes noting mild subcortical and periventricular microangiopathic change. There is no hemorrhage, mass effect, or evidence of acute territorial ischemia by CT criteria. Chou- white matter differentiation is preserved. No extra-axial fluid collection is seen. Ventricles, sulci, cisterns: Prominent secondary to involutional change. Intracranial vasculature: There is atherosclerotic calcification of the cavernous carotid and vertebral arteries. Calvarium: Unremarkable. Sinuses and mastoids: The visualized paranasal sinuses are clear. The mastoid air cells are well pneumatized. Cerumen is noted in the right external canal. Orbits: There is evidence of a chronic right orbital floor fracture. The bony orbits are otherwise grossly intact. There are bilateral ocular lens implants. IMPRESSION: There is no hemorrhage, mass effect, or evidence of acute territorial ischemia by CT criteria. ACT 112: Negative or not required by law. Electronically signed by: Aman Valverde M.D. 05/01/2021 2:31 PM Dictated: 05/01/21 1427Transcribed: 05/01/211426 XR chest 1V portable CLINICAL HISTORY: Stroke Like Symptoms COMPARISON STUDY: February 03, 2020 FINDINGS: No definite pneumothorax is seen however evaluation is limited because bilateral lung apices are partially obscured by patient's chin.. There is large left pleural effusion as well as infiltrate or consolidative lesion within left lower lung. Above-mentioned findings were also seen due to prior study in January 2020 and slightly improved since prior exam. Previously seen pleural effusion on the right is no longer visualized. Cardiomediastinal silhouette is difficult to assess because left heart border is obscured by surrounding opacities. Aorta is calcified. No significant pulmonary vascular congestion.. Osseous structures: Degenerative changes of the spine. IMPRESSION: 1. Large left pleural effusion associated with atelectasis/infiltrate within left lower lung. ACT 112: Negative or not required by law. The above report was generated using voice recognition software. It may contain grammatical, syntax or spelling errors. Electronically signed by: Yesi Swan DO 05/01/2021 2:00 PM Dictated: 05/01/21 1356Transcribed: 05/01/21 1356 Hospital Course (1) Stroke-like symptoms: (2) Foot drop, left: This is a 81-year-old male who has significant past medical history of ESRD on HD MWF, T2DM, chronic atrial fibrillation not on anticoagulation secondary to history of SDH, COPD, chronic hypoxic respiratory failure on nocturnal O2 4 L, CARLOS ALBERTO, chronic diastolic CHF, HTN, AAA, history of SDH on seizure prophylaxis, secondary hyperparathyroidism who presents ED secondary to left-sided weakness, foot drop and left-sided facial droop x1 to 2 days. Per PCP noted in Epic L facial droop was noted, inability to puff left cheek, L tongue deviation and L arm weakness. CT Head negative for acute abnormality. MRI of the head showed no acute intracranial abnormality. Carotid U/S showed atherosclerotic plaque with no sonographic evidence of hemodynamically significant stenosis in the right or left carotid arterial system ECHO showed no evidence of interatrial shunt defect Last known well on Wednesday, no TPA indicated given sx resolution and time Neuro on board recommended aspirin and plavix for 21 days, then aspirin for life Neuro will arrange for outpatient EMG for the foot droop Ok from neuro standpoint to discharge home Continue high dose statin, plavix and aspirin Follow up with neurology in 3 to 4 weeks Continue PT/OT eval Fall precaution (3) Large pleural effusion: CXR shows Large Left pleural effusion with consolidation Procalcitonin elevated at 2.05 Continue Rocephin and doxycycline e Pulm on board No plan for thoracocentesis pleural effusion seems to be chronic Saturated well on RA (4) ESRD (end stage renal disease): HD Wednesday Nephro on board Plan to HD today (5) Diabetes mellitus, type 2: Last A1c 6.4 03/18/2021 Most recent A1c 7.4 On Lantus/NovoLog per protocol Continue to hold glipizide and Victoza during the hospital course (6) Chronic diastolic heart failure: Volume status managed with HD Continue metoprolol Daily weights, strict I's and O's (7) COPD (chronic obstructive pulmonary disease): Follows [facility] Pulm refuses inhalers no acute exacerbation consult Pulm 2/2 to large pleural effusion (8) Atrial fibrillation: Metoprolol for rate control Currently atrial flutter Off anticoagulation secondary to SDH in 2019 (9) Anemia: Anemia of chronic renal disease hgb 10.3 today (10) Nocturnal hypoxemia: Continue oxygen suppplement with 4L of O2 at HS (11) Multiple pulmonary nodules determined by computed tomography of lung: CT chest showed 2.8 cm indeterminate nodular density in the anterior left upper lobe. There are at least 7 irregular pulmonary nodules scattered throughout the right lung. History tobacco abuse Recommend outpatient short interval CT chest without contrast in 4 to 6 weeks after treatment with antibiotics. (12) HTN (hypertension), benign: BP on lower side in ED, which is unusual per daughter Continue metoprolol (13) Dyslipidemia: continue high dose statin (14) Tobacco abuse: Counseling on smoking cessation (15) DVT prophylaxis: SCD/TEDS for now monitor daily need for chemical prophylaxis Dispo: PCU DNR/DNI PCP: Darlene Discharge home today Total Time Total Time Spent Total Time Spent (In Minutes): 35 minutes Total Time Includes: Examination of the Patient, Discharge Planning, Medication Reconciliation, Communication With Other Providers and Other Discharge Plan Discharge Items Patient Disposition: Home - Self-Care Reason For Visit: STROKE LIKE SX Discharge Diagnosis: (1) Stroke-like symptoms: (2) Foot drop, left: (3) Large pleural effusion: (4) ESRD (end stage renal disease): (5) Diabetes mellitus, type 2: (6) Chronic diastolic heart failure (7) COPD (chronic obstructive pulmonary disease): (8) Atrial fibrillation (9) Anemia: (10) Nocturnal hypoxemia: (11) Multiple pulmonary nodules determined by computed tomography of lung: (13) Tobacco abuse: Condition on Discharge: Good Activity: Resume your previous activity Non-emergency contact: Primary Care Provider, [place]merer, Neurologist and Marine Diver Call non-emergency contact if: you have any medication questions Follow-up/Referrals: Jyotsna De La Torre DO [Outside Practitioners] - 05/09/21 11:00 am (Dr. Colon is unavailable. Please follow up with Dr. De La Torre on Wednesday05/09/21 at 11:00 am. Please arrive to the office at 10:45 am for your appointme nt. If you are unable to keep this appointment, please call the office to reschedule at [phone].) Niko Batres MD [Physician] - (Dr. Batres is unavailable.) Aden Colon MD [Primary Care Provider] - (Dr. Colon is unavailable.) Neeta Abbott PA-C [Physician Paper Control Clerk] - 05/28/21 2:00 pm (Dr. Batres is unavailable. Please follow up with Neeta Abbott PA-C on Wednesday05/28/21 at 2:00 pm. Please arrive to the office at 1:45 pm for your appointment. If you are unable to keep this appointment, please call the office to reschedule at [phone].) Diet: Carb Consistent or DM2 Addtl Attending Provider Instructions: Follow up with your primary care provider Dr. Colon within 1 week Follow up with neurology dr. Batres or his colleagues in 3 to 4 weeks to arrange for outpatient EMG test (Electromyogram) for the foot drop You will need to get a repeat CAT scan of the chest to evaluate for the lung nodule in 6 to 8 weeks (Your provider or your lung specialist can order it) Follow up with your nephrology. Your next dialysis is scheduled for Wednesday Continue plavix and aspirin for 21 days, then after 21 days continue aspirin for life Monitor for abnormal bleeding while on plavix and aspirin Avoid any NSAID such as Motrin, Aleve, Naproxen, Ibuprofen, Advil, .... due to risk of bleeding Complete the course of the antibiotic Counseling on smoking cessation Fall precaution Pending Studies at Discharge: No Stand-Alone Forms: My [facility], Smoking Cessation Medications and DC Order Prescriptions: New doxycycline hyclate 100 mg Capsule 100 mg PO BID 5 Days Qty: 10 RF: 0 clopidogrel 75 mg Tablet 75 mg PO QAM 30 Days Qty: 30 RF: 0 aspirin 81 mg Tablet,Delayed Release (Dr/Ec) 81 mg PO DAILY 30 Days Qty: 30 RF: 0 Continued magnesium oxide 400 mg magnesium capsule 400 mg PO QAM RF: 0 levetiracetam 500 mg Tablet 500 mg PO BID RF: 0 lovastatin 40 mg Tablet 80 mg PO HS RF: 0 Victoza 2-Fernando 0.6 mg/0.1 mL (18 mg/3 mL) Pen Injector 1.2 mg SUBCUT DAILY RF: 0 cholecalciferol (vitamin D3) 2,000 unit Tablet 2,000 units PO QAM RF: 0 sertraline 25 mg tablet 25 mg PO QAM RF: 0 lidocaine-prilocaine 2.5-2.5 % cream 1 applic topical DAILY RF: 0 glipizide 5 mg tablet 2.5 mg PO BID RF: 0 metoprolol succinate 25 mg Tablet Extended Release 24 Hr 25 mg PO DAILY RF: 0 Discharge Orders: Discharge Order (Routine); Ordered 05/03/21 Ordered By: Jaimie Campo/Other Patient Handouts: Managing Type 2 Diabetes, A1C Admission Data Admit Date/Time: 05/01/21 15:23 Attending Provider: Jaimie Wong Admit Provider: Jaimie Wong Primary Care Provider: Aden Colon Other Providers: Jaimie Wong ; Tiana Smart ; Eric Ayala ; Jay Jenkins Other Interventions: Discharge Summary Assessment (RN) Last Done: 05/03/21 14:36
== END 2021-05-03 15:15 | disposition home or self-care (01) ==
LOC: ED 13:08 → 2S 13:08
DX: Z79.899 Other long term (current) drug therapy; E11.22 Type 2 diabetes mellitus with diabetic chronic kidney disease; M21.372 Foot drop, left foot; I71.4 Abdominal aortic aneurysm, without rupture; N25.81 Secondary hyperparathyroidism of renal origin; I13.0 Hypertensive heart and chronic kidney disease with heart failure and stage 1 through stage 4 chronic kidney disease, or unspecified chronic kidney disease; I50.42 Chronic combined systolic (congestive) and diastolic (congestive) heart failure; R29.90 Unspecified symptoms and signs involving the nervous system; J90 Pleural effusion, not elsewhere classified; Z20.822 Contact with and (suspected) exposure to COVID-19; Z99.2 Dependence on renal dialysis; I48.0 Paroxysmal atrial fibrillation; R53.1 Weakness; Z88.5 Allergy status to narcotic agent; J44.9 Chronic obstructive pulmonary disease, unspecified; F17.210 Nicotine dependence, cigarettes, uncomplicated; R29.810 Facial weakness; D64.9 Anemia, unspecified; N18.6 End stage renal disease; G47.33 Obstructive sleep apnea (adult) (pediatric); E78.5 Hyperlipidemia, unspecified; Z79.84 Long term (current) use of oral hypoglycemic drugs

== ENCOUNTER 2021-12-20 12:44 | Observation (INO) ==
--- NOTE | 2021-12-20 12:54 | Emergency Department Note ---
History of Present Illness General Chief complaint: Stroke Alert Stated complaint: STROKE SX Source: patient, family (I talked to daughter who is at the bedside) and EMS Mode of arrival: EMS Limitations: no limitations History of Present Illness This patient is brought in by EMS after having a possible stroke. They did call me prior to arrival and said that his last known well was 1700 yesterday. He did not wake up for breakfast or coffee and when they checked on him his family thought he is speech was slurred and he has some droop in his face decided that there were no other complaints. The patient denied any fever or chest pain or shortness of breath or abdominal pain. Based on the fact that he has new strokelike symptoms I did call a stroke alert. The paramedics call me back and they did check a temperature which was elevated and blood sugar which was not elevated significantly. In light of the temperature it may be more of a sepsis type picture. Given the fact that he is end-stage renal disease, I did not order CTAs initially but just a dry CT. Given the fact that he has had fevers I did add blood cultures and lactic acid and EKG he apparently does have a cardiac history. I did talk to the daughter at length. She confirms as the paramedics told me that he is a DNR/DNI. The patient denies any complaints. He has not missed dialysis. He goes Wednesday. Home Medications Medication Instructions Recorded Confirmed Type cholecalciferol (vitamin D3) 50 2,000 units PO QAM 02/09/19 07/14/21 History mcg (2,000 unit) tablet liraglutide 0.6 mg/0.1 mL (18 mg/3 1.2 mg SUBCUT DAILY 02/09/19 07/14/21 History mL) subcutaneous pen injector (Victoza 2-Fernando) lovastatin 40 mg tablet 80 mg PO HS 02/09/19 07/14/21 History levetiracetam 500 mg tablet 500 mg PO BID 05/10/19 07/14/21 History sertraline 25 mg tablet 25 mg PO QAM 11/21/19 07/14/21 History magnesium oxide 400 mg PO QAM 01/17/20 07/14/21 History lidocaine-prilocaine 2.5 %-2.5 % 1 applic TOPICAL DAILY 02/09/20 07/14/21 History topical cream glipizide 5 mg tablet 2.5 mg PO BID 05/01/21 07/14/21 History metoprolol succinate 25 mg 25 mg PO DAILY 05/01/21 07/14/21 History tablet,extended release 24 hr Allergies Allergy/AdvReac Type Severity Reaction Status Date / Time codeine AdvReac Intermediate NAUSEA Verified 07/11/21 09:52 Past Med/Surg History Medical History AAA (abdominal aortic aneurysm) Asthma with COPD Atrial fibrillation dx 2015 - no longer taking warfarin - recent fall w/ brain bleed 03/2019 Chronic diastolic heart failure Chronic systolic heart failure CKD (chronic kidney disease), stage IV Daytime sleepiness Diabetes mellitus, type 2 Dyslipidemia ESRD (end stage renal disease) History of CVA (cerebrovascular accident) 2015 - dx w/ a.fib - [facility] - no deficits History of seizure history obtained from dtr - unsure of last seizure History of subdural hemorrhage 03/2019 - fall - [place] visit 03/30/2019 --> [facility] HTN (hypertension), benign Kidney lesion Metastatic disease Multiple pulmonary nodules determined by computed tomography of lung Nocturnal hypoxemia CARLOS ALBERTO (obstructive sleep apnea) does not tolerate CPAP Pleural effusion, left Restrictive lung disease Severe chronic obstructive pulmonary disease Tobacco abuse Tobacco use disorder Surgical History History of back surgery History of cataract surgery History of colonoscopy History of esophagogastroduodenoscopy (EGD) History of lumbar spinal fusion x 2 History of tooth extraction Family History Mother Cancer Brother Diabetes Heart disease Social History Smoking Status: Current every day smoker Tobacco Type: Cigarettes Years Smoked: 65; Cigarettes Per Day: 10; Second Hand Exposure: No; Hx Alcohol Use: No Hx Substance Use: No Preferred Language: Panamanian Communication Ability: Effective Private Branch Exchange Service Advisor Required: No Beliefs That Will Affect Care: None marital status: Current Living Situation: Family Current Living Situation Comment: daughter lives with pt How many Children do You have: 4 Feels Safe at Home: Yes Assistive Devices: Walker Review of Systems A total of 10 systems reviewed and were otherwise negative Physical Exam Vital Signs Vital Signs - 24 hr 12/20/21 12:45 12/20/21 13:00 Temperature 38.2 C H Temperature Source Oral Pulse Rate 98 H 105 H Respiratory Rate 20 18 Blood Pressure 106/66 105/66 Blood Pressure Mean 79 79 Pulse Oximetry 90 89 L Oxygen Delivery Method Room Air Sepsis Recent Fever Within 48 Hours Yes Sepsis New/Unexplained Change in Mental Status No Sepsis Action Taken by Nursing No Action Required General: Well developed well nourished older male who appears in no acute distress, breathing comfortably on room air. Normal speech HEENT: Normal cephalic atraumatic. Pupils are equal round and reactive to light. Extraocular movements are intact. Oropharynx is pink with moist mucous membranes. No swelling of the mouth lips or tongue. Neck: Supple with a midline trachea. No meningeal signs or stiffness, no JVD or bruits. No Stridor. Chest: Clear to auscultation bilaterally. No wheezes or rhonchi. No increased work of breathing. Heart: Regular rate and rhythm without murmurs or gallops. Abdomen: Soft nontender, nondistended without rebound guarding or rigidity. Extremities: No cyanosis clubbing or edema. No calf tenderness or assymetry Spine/Back. Non tender to palpation. No CVA tenderness Skin: Good turgor without rashes. Neurologic exam: Cranial nerves two through 12 are intact. Motor and sensation are intact and symmetrical throughout. No tremor. Medical Decision Making Differential Diagnosis Stroke, TIA, intracranial hemorrhage, sepsis, electrolyte or metabolic abnormality, COVID, renal disease Medical Records Attestation: I reviewed the patient's medical records. Laboratory Data Attestation: I reviewed the patient's lab results. Result diagrams: 12/20/21 12:55 12/20/21 12:55 Lab Results 12/20/21 12/20/21 12/20/21 Range/Units 12:55 12:55 12:55 WBC 5.79 (4.8-10.8) K/uL RBC 3.32 L (4.7-6.1) M/uL Hgb 10.2 L (14.0-18.0) g/dL Hct 32.4 L (42-52) % MCV 97.6 (80-100) fL MCH 30.7 (25-34) pg MCHC 31.5 L (32-36) g/dL RDW Std Deviation 53.5 H (36.4-46.3) fL RDW Coeff of Kiah 15.0 H (11.5-14.5) % Plt Count 234 (130-400) K/uL MPV 9.1 (7.4-10.4) fL Immature Gran % (Auto) 0.2 % Neut % (Auto) 79.3 % Lymph % (Auto) 15.0 % [place] % (Auto) 5.0 % Eos % (Auto) 0.3 % Baso % (Auto) 0.2 % Neut # (Auto) 4.59 (1.4-6.5) K/uL Lymph # (Auto) 0.87 L (1.2-3.4) K/uL [place] # (Auto) 0.29 (0.11-0.59) K/uL Eos # (Auto) 0.02 (0-0.5) K/uL Baso # (Auto) 0.01 (0-0.2) K/uL Immature Gran # (Auto) 0.01 (0.00-0.02) K/uL PT 11.0 (9.0-12.0) Seconds INR 1.1 (0.9-1.1) APTT 29.6 (21.0-31.0) Seconds PTT Ratio 1.1 Sodium 134 L (136-145) mmol/L Potassium 4.4 (3.5-5.1) mmol/L Chloride 99 (98-107) mmol/L Carbon Dioxide 27 (21-32) mmol/L Anion Gap 8 (3-11) BUN 37 H (6-23) mg/dl Creatinine 5.43 H* (0.6-1.4) mg/dl Est Cr Clr Drug Dosing 13.4 ml/min Est GFR ( Amer) 10.5 ml/min Est GFR (Non-Af Amer) 9.1 ml/min BUN/Creatinine Ratio 6.8 L (10-20) Glucose 104 H (70-99(Fasting)) mg/dl Lactate (0.4-2.0) mmol/L Calcium 9.4 (8.5-10.1) mg/dl Magnesium 1.9 (1.7-2.4) mg/dl Total Bilirubin 0.5 (0.2-1.0) mg/dl AST 12 L (13-39) U/L ALT 10 (7-52) U/L Alkaline Phosphatase 42 (34-104) U/L Troponin I 0.14 H* (0-0.04) ng/ml Total Protein 6.8 (6.0-8.3) gm/dl Albumin 3.6 (3.4-5.0) gm/dl Globulin 3.2 (2.5-4.0) gm/dl Albumin/Globulin Ratio 1.1 (0.9-2) SARS-CoV-2, RNA, NAAT (NEGATIVE) 12/20/21 12/20/21 Range/Units 12:55 13:07 WBC (4.8-10.8) K/uL RBC (4.7-6.1) M/uL Hgb (14.0-18.0) g/dL Hct (42-52) % MCV (80-100) fL MCH (25-34) pg MCHC (32-36) g/dL RDW Std Deviation (36.4-46.3) fL RDW Coeff of Kiah (11.5-14.5) % Plt Count (130-400) K/uL MPV (7.4-10.4) fL Immature Gran % (Auto) % Neut % (Auto) % Lymph % (Auto) % [place] % (Auto) % Eos % (Auto) % Baso % (Auto) % Neut # (Auto) (1.4-6.5) K/uL Lymph # (Auto) (1.2-3.4) K/uL [place] # (Auto) (0.11-0.59) K/uL Eos # (Auto) (0-0.5) K/uL Baso # (Auto) (0-0.2) K/uL Immature Gran # (Auto) (0.00-0.02) K/uL PT (9.0-12.0) Seconds INR (0.9-1.1) APTT (21.0-31.0) Seconds PTT Ratio Sodium (136-145) mmol/L Potassium (3.5-5.1) mmol/L Chloride (98-107) mmol/L Carbon Dioxide (21-32) mmol/L Anion Gap (3-11) BUN (6-23) mg/dl Creatinine (0.6-1.4) mg/dl Est Cr Clr Drug Dosing ml/min Est GFR ( Amer) ml/min Est GFR (Non-Af Amer) ml/min BUN/Creatinine Ratio (10-20) Glucose (70-99(Fasting)) mg/dl Lactate 0.9 (0.4-2.0) mmol/L Calcium (8.5-10.1) mg/dl Magnesium (1.7-2.4) mg/dl Total Bilirubin (0.2-1.0) mg/dl AST (13-39) U/L ALT (7-52) U/L Alkaline Phosphatase (34-104) U/L Troponin I (0-0.04) ng/ml Total Protein (6.0-8.3) gm/dl Albumin (3.4-5.0) gm/dl Globulin (2.5-4.0) gm/dl Albumin/Globulin Ratio (0.9-2) SARS-CoV-2, RNA, NAAT NEGATIVE (NEGATIVE) Imaging Data Attestation: I personally reviewed and interpreted this imaging study as follows: My Impression: Chest x-raythere is a pleural effusion on the left with cardiomegaly unchanged from previous Head CTno acute hemorrhage or mass-effect seen Radiologist's Impression: Chest X-Ray 12/20/21 12:29 SINGLE VIEW CHEST CLINICAL HISTORY: Strokelike symptoms. FINDINGS: An AP, portable, upright chest radiograph is compared to study dated 07/15/2021 and correlated with chest CT dated 07/03/2021. The heart is enlarged noting atherosclerotic calcification of the thoracic aorta. The pulmonary vasculature is noncongested. Emphysematous change is noted. A left pleural effusion with chronic left basilar consolidation is similar to previous. Right- sided pulmonary nodules are again noted. The right lung is otherwise clear noting basilar atelectasis. No pneumothorax is seen. The skeletal structures are osteopenic. The bony thorax is grossly intact. IMPRESSION: 1. Cardiomegaly and emphysema with no radiographic evidence of congestive failure. 2. A left pleural effusion with chronic left basilar consolidation is similar to prior studies. 3. Right-sided pulmonary nodules are again noted. These were better assessed on prior chest CT scans ACT 112: Negative or not required by law. Electronically signed by: Aman Valverde M.D. 12/20/2021 1:[address] 12/20/21 12:29 CT SCAN OF THE BRAIN WITHOUT IV CONTRAST CLINICAL HISTORY: Strokelike symptoms. COMPARISON STUDY: CT of the brain dated 05/01/2021. TECHNIQUE: Unenhanced axial CT scan of the brain is performed from the vertex to the skull base. A dose lowering technique was utilized adhering to the principles of ALARA. CT DOSE: 537.48 mGy.cm FINDINGS: Brain parenchyma: There are age-related involutional changes noting mild subcortical and periventricular microangiopathic change. There is no hemorrhage, mass effect, or evidence of acute territorial ischemia by CT criteria. Chou- white matter differentiation is preserved. No extra-axial fluid collection is seen. Ventricles, sulci, cisterns: Prominent secondary to involutional change. Intracranial vasculature: There is atherosclerotic calcification of the cavernous carotid and vertebral arteries. Calvarium: Unremarkable. Sinuses and mastoids: The visualized paranasal sinuses are clear. The mastoid air cells are well pneumatized. Cerumen is noted in the right external auditory canal. Orbits: There is chronic deformity of the right orbital floor. There are bila teral ocular lens implants. IMPRESSION: There is no hemorrhage, mass effect, or evidence of acute territorial ischemia by CT criteria. ACT 112: Negative or not required by law. Electronically signed by: Aman Valverde M.D. 12/20/2021 1:02 PM ECG Data Attestation: I personally reviewed and interpreted this ECG as follows: Indication: + weakness Rate (beats per minute): 110 Rhythm: + atrial fibrillation ECG Intervals/blocks: + Normal QRS and + Normal QT ECG [place]: + Normal ECG Findings: no PACs or no PVCs Comparison ECG Date: from (05/03/21) Change: the following changes noted (Rate has increased otherwise no significant change) MDM Narrative This patient comes in as described above. I did call a stroke alert prior to arrival given his strokelike symptoms. He apparently had slurred speech and facial droop. Prior to arrival did call me back and told me he has a temperature. In light of this, I did also order sepsis/infectious type. I did order a stat CT of the head I did not order the CTAs given the new concern for infection/alternative diagnosis and the fact that he is a dialysis patient. I did talk to the daughter at length who arrived. Stat CAT scan of the head did not show any hemorrhage or mass-effect upon my interpretation which was later confirmed by the radiologist. He has no significant lecture light or metabolic abnormality does have a fever. He has a normal lactic acid and white count however. No definite source of infection COVID was negative. Was given Zosyn 4.5 g IV. I talked to the family and patient at length he apparently does have a POLST which he declines a lot of care but he is willing to get antibiotics and stay in the hospital he is definitely DO NOT RESUSCITATE. [facility] for further treatment and evaluation. Due to the patient's end-stage renal disease/dialysis dependence and discussions with goals of care I did not give him 30/kg fluid bolus. Continuous cardiac monitoring: Orders placed in EMR for continuous cardiac monitoring he was noted to be an A. fib with a rate of 100 Impression & Plan Sepsis, ESRD on dialysis, Weakness, Do not resuscitate, Lab test negative for COVID-19 virus Discharge Plan Visit Data Chief Complaint: Stroke Alert Stated Complaint: STROKE SX ED Provider: Garett Wagner Discharge Problem: Sepsis, ESRD on dialysis, Weakness, Do not resuscitate, Lab test negative for COVID-19 virus Forms Stand Alone Forms: My [facility] [place] Prescriptions Prescriptions: No Action magnesium oxide 400 mg magnesium capsule 400 mg PO QAM RF: 0 levetiracetam 500 mg Tablet 500 mg PO BID RF: 0 lovastatin 40 mg Tablet 80 mg PO HS RF: 0 Victoza 2-Fernando 0.6 mg/0.1 mL (18 mg/3 mL) Pen Injector 1.2 mg SUBCUT DAILY RF: 0 cholecalciferol (vitamin D3) 2,000 unit Tablet 2,000 units PO QAM RF: 0 sertraline 25 mg tablet 25 mg PO QAM RF: 0 lidocaine-prilocaine 2.5-2.5 % cream 1 applic topical DAILY RF: 0 glipizide 5 mg tablet 2.5 mg PO BID RF: 0 metoprolol succinate 25 mg Tablet Extended Release 24 Hr 25 mg PO DAILY RF: 0 Referrals Referrals: Aden Colon MD [Primary Care Provider] - Discharge Problem: Sepsis Qualifiers: Sepsis type: sepsis due to unspecified organism Sepsis acute organ dysfunction status: unspecified Qualified Code(s): A41.9 - Sepsis, unspecified organism
--- NOTE | 2021-12-20 13:03 | CT Scan Report ---
CT SCAN OF THE BRAIN WITHOUT IV CONTRAST CLINICAL HISTORY: Strokelike symptoms. COMPARISON STUDY: CT of the brain dated 05/01/2021. TECHNIQUE: Unenhanced axial CT scan of the brain is performed from the vertex to the skull base. A do se lowering technique was utilized adhering to the principles of ALARA. CT DOSE: 537.48 mGy.cm FINDINGS: Brain parenchyma: There are age-related involutional changes noting mild subcortical and periventric ular microangiopathic change. There is no hemorrhage, mass effect, or evidence of acute territorial i schemia by CT criteria. Chou-white matter differentiation is preserved. No extra-axial fluid collecti on is seen. Ventricles, sulci, cisterns: Prominent secondary to involutional change. Intracranial vasculature: There is atherosclerotic calcification of the cavernous carotid and vertebr al arteries. Calvarium: Unremarkable. Sinuses and mastoids: The visualized paranasal sinuses are clear. The mastoid air cells are well pneu matized. Cerumen is noted in the right external auditory canal. Orbits: There is chronic deformity of the right orbital floor. There are bilateral ocular lens implan ts. IMPRESSION: There is no hemorrhage, mass effect, or evidence of acute territorial ischemia by CT crit erkenny. ACT 112: Negative or not required by law. Electronically signed by: Aman Valverde M.D. 12/20/2021 1:02 PM
[2021-12-20 13:06] LABS: Basophils # (auto) 0.01 K/uL (0-0.2); Basophils % (auto) 0.2 %; Eosinophils # (auto) 0.02 K/uL (0-0.5); Eosinophils % (auto) 0.3 %; Hematocrit (blood only) 32.4 % (42-52); Hemoglobin 10.2 g/dL (14.0-18.0); Immature Granulocytes # (auto) 0.01 K/uL (0.00-0.02); Immature Granulocytes % (auto) 0.2 %; Lymphocytes # (auto) 0.87 K/uL (1.2-3.4); Mean Corpuscular Hemoglobin 30.7 pg (25-34); Mean Corpuscular Hgb Conc 31.5 g/dL (32-36); Mean Corpuscular Volume 97.6 fL (80-100); Mean Platelet Volume 9.1 fL (7.4-10.4); Monocytes # (auto) 0.29 K/uL (0.11-0.59); Neutrophils # (auto) 4.59 K/uL (1.4-6.5); Neutrophils % (auto) 79.3 %; Platelet Count 234 K/uL (130-400); RDW Standard Deviation 53.5 fL (36.4-46.3); Red Blood Count 3.32 M/uL (4.7-6.1); White Blood Count 5.79 K/uL (4.8-10.8)
[2021-12-20 13:20] LABS: INR 1.1 (0.9-1.1); Partial Thromboplastin Ratio 1.1; Partial Thromboplastin Time 29.6 Seconds (21.0-31.0)
--- NOTE | 2021-12-20 13:21 | XRay Report ---
SINGLE VIEW CHEST CLINICAL HISTORY: Strokelike symptoms. FINDINGS: An AP, portable, upright chest radiograph is compared to study dated 07/15/2021 and correlat ed with chest CT dated 07/03/2021. The heart is enlarged noting atherosclerotic calcification of the th oracic aorta. The pulmonary vasculature is noncongested. Emphysematous change is noted. A left pleura l effusion with chronic left basilar consolidation is similar to previous. Right-sided pulmonary nodu les are again noted. The right lung is otherwise clear noting basilar atelectasis. No pneumothorax is seen. The skeletal structures are osteopenic. The bony thorax is grossly intact. IMPRESSION: 1. Cardiomegaly and emphysema with no radiographic evidence of congestive failure. 2. A left pleural effusion with chronic left basilar consolidation is similar to prior studies. 3. Right-sided pulmonary nodules are again noted. These were better assessed on prior chest CT scans ACT 112: Negative or not required by law. Electronically signed by: Aman Valverde M.D. 12/20/2021 1:20 PM
[2021-12-20 13:46] LABS: Albumin Globulin Ratio 1.1 (0.9-2); Albumin Level 3.6 gm/dl (3.4-5.0); BUN Creatinine Ratio 6.8 (10-20); Bilirubin,Total 0.5 mg/dl (0.2-1.0); Calcium 9.4 mg/dl (8.5-10.1); Creatinine Clr Calc Pharmacy 13.4 ml/min; Est GFR (African American) 10.5 ml/min; Est GFR (Non-African American) 9.1 ml/min; Globulin 3.2 gm/dl (2.5-4.0); Magnesium 1.9 mg/dl (1.7-2.4); Potassium 4.4 mmol/L (3.5-5.1); Total Protein 6.8 gm/dl (6.0-8.3); Troponin I 0.14 ng/ml (0-0.04)
[2021-12-20] MEDS ORDERED: PIPERACILLIN/TAZOBACTAM 4.5 GM/120 ML BAG IV ONE (14:04)
[2021-12-20] MEDS ORDERED: PIPERACILL/TAZOBAC CONSULT ACTIVE PRN ×2 (14:04→18:38)
[2021-12-20] MEDS ORDERED: ACETAMINOPHEN 325 MG TAB PO STA (14:05)
[2021-12-20] MEDS ORDERED: METOPROLOL SUCC 25MG EXT REL TAB PO STA (15:12)
[2021-12-20] MEDS ORDERED: ASPIRIN CHEW 324 MG PO STA (15:12)
--- NOTE | 2021-12-20 15:28 | History & Physical Report ---
Date of Service December 20, 2021 Assessment & Plan (1) Stroke-like symptoms: (2) SIRS (systemic inflammatory response syndrome): (3) ESRD on dialysis: (4) Diabetes mellitus, type 2: (5) Chronic diastolic heart failure: (6) Atrial fibrillation: (7) Do not resuscitate: Plan: This is a 81-year-old male who has significant past medical history of ESRD on HD MWF, T2DM, chronic atrial fibrillation not on anticoagulation secondary to history of SDH, COPD, chronic hypoxic respiratory failure on nocturnal O2 4 L, CARLOS ALBERTO not on CPAP, chronic diastolic CHF, HTN, AAA, history of SDH on seizure prophylaxis, secondary hyperparathyroidism who presents ED secondary to concern for stroke like sx since this morning. Stroke like sx - L facial droop, slurred speech - now resolved Hx of CVA Chronic Atrial fib - not on OAC 2/2 to hx of SDH admit to tele consult neuro previously pt on ASA, Plavix; however pt currently not taking any anti platelet therapy obtain MRI brain w/o contrast Last carotid doppler 04/2021 - negative for hemodynamic significant stenosis, will defer due to neurology if repeat or further imaging required A1c, lipid panel in a.m. PT, OT, ST Chronic atrial fibrillation on metoprolol for rate control Continue lovastatin SIRS -tachycardia, fever Elevated procalcitonin, patient appears to have chronically elevated Pro-Guillermo No current source of infection at this time Obtain urinalysis Blood cultures ordered and pending Empirically treat with IV Zosyn until infection ruled out Chronic atrial fibrillation continue metoprolol not on OAC 2/2 to hx of SDH Elevated troponin will cycle for completeness, but no ekg changes or chest pain likely in setting of renal diease End-stage renal disease Hemodialysis Wednesday Consult nephrology Renal diet, Triphrocaps 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 Colon DVT ppx: SCD/TEDS for now, given reported hematuria, hx of SDH will avoid chemical ppx for now Patient was seen and examined in collaboration with Dr. Cervantes, please see addendum The chart was completed utilizing [employer] Speech voice recognition software. Grammatical errors, random word insertions, pronoun errors, and incomplete sentences are an occasional consequence of this system due to software limitations, ambient noise, and hardware issues. Any formal questions or concerns about the content, text, or information contained within the body of this dictation should be directly addressed to the provider for clarification. History of Present Illness Chief Complaint: Stroke like sx prior to arrival. Primary Care Provider: Aden Colon MD This is a 81-year-old male who has significant past medical history of ESRD on HD MWF, T2DM, chronic atrial fibrillation not on anticoagulation secondary to history of SDH, COPD, chronic hypoxic respiratory failure on nocturnal O2 4 L, CARLOS ALBERTO not on CPAP, chronic diastolic CHF, HTN, AAA, history of SDH on seizure prophylaxis, secondary hyperparathyroidism who presents ED secondary to concern for stroke like sx since this morning. Patient was last known well at 1700 last evening. He lives at home with his daughter. His other daughter is currently present at bedside. Daughter states that this morning when trying to help patient get out of bed he was leaning and falling to his left side. It was also reported he had left facial droop and slurred speech. He does have prior history of CVA with residual left foot drop but no other deficits. When patient arrived to ED daughter continue to notice facial droop; however, now it is absent. Patient is back to his baseline. Was also noted upon arrival to ED that his temperature was elevated at 38.2. Currently patient states he feels well. He denies any chills, sweats, lightheadedness, dizziness, syncope, change in vision, change in hearing, headache, chest pain, shortness of breath at rest, palpitations, nausea, vomiting, abdominal pain or diarrhea. He does have a chronic cough with productive brown sputum. He has known history of COPD and feels this is unchanged. He also has had hematuria off and on since July. Appetite has been stable. He has been compliant with medications, but did not take any today. He also has not been on any ASA or plavix. In ED patient did meet SIRS criteria secondary to tachycardia and elevated temperature. He was made stroke alert due to reported strokelike symptoms. Initial head CT was nega tive for any acute abnormality. His symptoms had resolved upon my examination. He is saturating well on room air. His lab work was notable for H&H 10.2 and 32.4, sodium 134, BUN 37, creatinine 5.43, glucose 104, lactate 0.9, troponin 0.14, procalcitonin 2.38, BNP 1151. He last had dialysis on Wednesday. It is also notable that patient has chronic elevated procalcitonin. In ED he did receive oral acetaminophen and IV Zosyn. Allergies Allergy/AdvReac Type Severity Reaction Status Date / Time codeine AdvReac Intermediate NAUSEA Verified 07/11/21 09:52 Home Medications Medication Instructions Recorded Confirmed Type cholecalciferol (vitamin D3) 50 2,000 units PO QAM 02/09/19 12/20/21 History mcg (2,000 unit) tablet liraglutide 0.6 mg/0.1 mL (18 mg/3 1.2 mg SUBCUT DAILY 02/09/19 12/20/21 History mL) subcutaneous pen injector (Victoza 2-Fernando) lovastatin 40 mg tablet 80 mg PO HS 02/09/19 12/20/21 History levetiracetam 500 mg tablet 500 mg PO BID 05/10/19 12/20/21 History sertraline 25 mg tablet 25 mg PO QAM 11/21/19 12/20/21 History glipizide 5 mg tablet 2.5 mg PO BID 05/01/21 12/20/21 History metoprolol succinate 25 mg 25 mg PO DAILY 05/01/21 12/20/21 History tablet,extended release 24 hr calcium acetate(phosphat bind) 667 1,334 mg PO DAILY 12/20/21 12/20/21 History mg tablet vitamin B complex and vitamin C 1 cap PO DAILY 12/20/21 12/20/21 History no.20-folic acid 1 mg capsule (Triphrocaps) Past Med/Surg History Medical History AAA (abdominal aortic aneurysm) Asthma with COPD Atrial fibrillation dx 2015 - no longer taking warfarin - recent fall w/ brain bleed 03/2019 Chronic diastolic heart failure Chronic systolic heart failure CKD (chronic kidney disease), stage IV Daytime sleepiness Diabetes mellitus, type 2 Dyslipidemia ESRD (end stage renal disease) History of CVA (cerebrovascular accident) 2016 - dx w/ a.fib - [facility] - no deficits History of seizure history obtained from dtr - unsure of last seizure History of subdural hemorrhage 03/2019 - [place] [facility] [place] (hypertension), benign Kidney lesion Metastatic disease Multiple pulmonary nodules determined by computed tomography of lung Nocturnal hypoxemia CARLOS ALBERTO (obstructive sleep apnea) does not tolerate CPAP Pleural effusion, left Restrictive lung disease Severe chronic obstructive pulmonary disease Tobacco abuse Tobacco use disorder Surgical History History of back surgery History of cataract surgery History of colonoscopy History of esophagogastroduodenoscopy (EGD) History of lumbar spinal fusion x 2 History of tooth extraction Family History Mother Cancer Brother Diabetes Heart disease Social History Smoking Status: Current every day smoker Tobacco Type: Cigarettes Years Smoked: 65; Cigarettes Per Day: 10; Second Hand Exposure: No; Hx Alcohol Use: No Hx Substance Use: No Preferred Language: Albanian Communication Ability: Effective Mathematics Teacher Required: No Beliefs That Will Affect Care: None marital status: Current Living Situation: Family Current Living Situation Comment: daughter lives with pt How many Children do You have: 4 Feels Safe at Home: Yes Assistive Devices: Walker Review of Systems Review of Systems: All systems reviewed & are unremarkable except as noted in HPI & below Physical Exam Physical Exam: Constitutional: WD/WN, Elderly, M, CITIZEN [place], vitals as above, NAD, sitting up in bed, pleasant, conversing easily Head: Normocephalic, Atraumatic Eyes: PERRL, conjunctivae normal, anicteric sclerae ENMT: external ear and nose normal, oropharynx normal Neck: trachea midline, no thyromegaly normal visual inspection Respiratory: normal respiratory effort, lungs clear to auscultation, no wheeze, rales, rhonchi. Normal insp/exp effort, no accessory muscle use Cardiovascular: IRR/IRR, 2/6 TRISTON noted throughout precordium, no edema Vessels: no JVD or carotid bruit , + RUE AV Fistula Chest: normal inspection of chest, bilateral gynecomastia Abdomen: normal bowel sounds, soft, nontender, no hepatosplenomegaly Musculoskeletal: no cyanosis or clubbing, extremities motor strength 5/5 Skin: no rashes, warm and dry normal turgor Neurologic: PERRL, EOMI, accommodation nl, no face palsy, no dysarthria CN's II-XI intact bilaterally and moves all extremities Psychiatric: A+Ox3, euthymic affect Lymphatic: no cervical or axillary lymphadenopathy : deferred Results & Data Results & Data ([facility]) Vital Signs (Past 12 Hours) Vital Signs Temp Pulse Resp BP Pulse Ox 12/20/21 13:00 105 H 18 105/66 89 L 12/20/21 12:45 38.2 C H 98 H 20 106/66 90 Diagnostic Findings Chest X-Ray 12/20/21 12:29 SINGLE VIEW CHEST CLINICAL HISTORY: Strokelike symptoms. FINDINGS: An AP, portable, upright chest radiograph is compared to study dated 07/15/2021 and correlated with chest CT dated 07/03/2021. The heart is enlarged noting atherosclerotic calcification of the thoracic aorta. The pulmonary vasculature is noncongested. Emphysematous change is noted. A left pleural effusion with chronic left basilar consolidation is similar to previous. Right- sided pulmonary nodules are again noted. The right lung is otherwise clear noting basilar atelectasis. No pneumothorax is seen. The skeletal structures are osteopenic. The bony thorax is grossly intact. IMPRESSION: 1. Cardiomegaly and emphysema with no radiographic evidence of congestive failure. 2. A left pleural effusion with chronic left basilar consolidation is similar to prior studies. 3. Right-sided pulmonary nodules are again noted. These were better assessed on prior chest CT scans ACT 112: Negative or not required by law. Electronically signed by: Aman Valverde M.D. 12/20/2021 1:[address] 12/20/21 12:29 CT SCAN OF THE BRAIN WITHOUT IV CONTRAST CLINICAL HISTORY: Strokelike symptoms. COMPARISON STUDY: CT of the brain dated 05/01/2021. TECHNIQUE: Unenhanced axial CT scan of the brain is performed from the vertex to the skull base. A dose lowering technique was utilized adhering to the princ iples of IGGY. CT DOSE: 537.48 mGy.cm FINDINGS: Brain parenchyma: There are age-related involutional changes noting mild subcortical and periventricular microangiopathic change. There is no hemorrhage, mass effect, or evidence of acute territorial ischemia by CT criteria. Chou- white matter differentiation is preserved. No extra-axial fluid collection is seen. Ventricles, sulci, cisterns: Prominent secondary to involutional change. Intracranial vasculature: There is atherosclerotic calcification of the cavernous carotid and vertebral arteries. Calvarium: Unremarkable. Sinuses and mastoids: The visualized paranasal sinuses are clear. The mastoid air cells are well pneumatized. Cerumen is noted in the right external auditory canal. Orbits: There is chronic deformity of the right orbital floor. There are bilateral ocular lens implants. IMPRESSION: There is no hemorrhage, mass effect, or evidence of acute territorial ischemia by CT criteria. ACT 112: Negative or not required by law. Electronically signed by: Aman Valverde M.D. 12/20/2021 1:02 PM Medications Administered Medication List Discontinued Medications Acetaminophen (Acetaminophen 325 Mg Tab) 650 mg PO NOW STA Stop: 12/20/21 14:06 Last Admin: 12/20/21 15:18 Dose: 650 mg Documented by: [id number] Aspirin (Aspirin Chew 324 Mg) 324 mg PO NOW STA Stop: 12/20/21 15:13 Last Admin: 12/20/21 15:47 Dose: Not Given Documented by: [id number] Piperacillin Sod/Tazobactam Sod (Zosyn) 4.5 gm in 120 mls @ 240 mls/hr IV NOW ONE Stop: 12/20/21 14:33 Last Admin: 12/20/21 15:19 Dose: 240 mls/hr Documented by: [id number] ECG Rate (beats per minute): 110 Rhythm: atrial fibrillation Findings: + RBBB COVID-19 Results Results COVID-19 Adm Lab Results: RBC 3.32 M/uL (4.7-6.1) L 12/20/21 WBC 5.79 K/uL (4.8-10.8) 12/20/21 Hgb 10.2 g/dL (14.0-18.0) L 12/20/21 Hct 32.4 % (42-52) L 12/20/21 Plt Count 234 K/uL (130-400) 12/20/21 Neutrophils (%) (Auto) 79.3 % 12/20/21 Lymphocytes (%) (Auto) 15.0 % 12/20/21 Monocytes # (Auto) 0.29 K/uL (0.11-0.59) 12/20/21 Eosinophils # (Auto) 0.02 K/uL (0-0.5) 12/20/21 Immature Granulocyte % (Auto) 0.2 % 12/20/21 Neutrophils # (Auto) 4.59 K/uL (1.4-6.5) 12/20/21 Lymphocytes # (Auto) 0.87 K/uL (1.2-3.4) L 12/20/21 Monocytes # (Auto) 0.29 K/uL (0.11-0.59) 12/20/21 Eosinophils # (Auto) 0.02 K/uL (0-0.5) 12/20/21 Basophils # (Auto) 0.01 K/uL (0-0.2) 12/20/21 Immature Granulocyte # (Auto) 0.01 K/uL (0.00-0.02) 12/20/21 Na 134 mmol/L (136-145) L 12/20/21 K 4.4 mmol/L (3.5-5.1) 12/20/21 Cl 99 mmol/L (98-107) 12/20/21 CO2 27 mmol/L (21-32) 12/20/21 Anion Gap 8 (3-11) 12/20/21 BUN 37 mg/dl (6-23) H 12/20/21 Creatinine 5.43 mg/dl (0.6-1.4) H* 12/20/21 BUN/Creatinine Ratio 6.8 (10-20) L 12/20/21 Glucose Level 104 mg/dl (70-99(Fasting)) H 12/20/21 Ca 9.4 mg/dl (8.5-10.1) 12/20/21 Total Bilirubin 0.5 mg/dl (0.2-1.0) 12/20/21 AST/SGOT 12 U/L (13-39) L 12/20/21 ALT/SGPT 10 U/L (7-52) 12/20/21 Alkaline Phosphatase 42 U/L (34-104) 12/20/21 Total Protein 6.8 gm/dl (6.0-8.3) 12/20/21 Albumin 3.6 gm/dl (3.4-5.0) 12/20/21 Globulin 3.2 gm/dl (2.5-4.0) 12/20/21 Albumin/Globulin Ratio 1.1 (0.9-2) 12/20/21 Troponin I 0.14 ng/ml (0-0.04) H* 12/20/21 Procalcitonin 2.38 ng/ml (0-0.5) H 12/20/21 PTT 29.6 Seconds (21.0-31.0) 12/20/21 INR 1.1 (0.9-1.1) 12/20/21 SARS-CoV-2, RNA, NAAT NEGATIVE (NEGATIVE) 12/20/21 Chest X-Ray 12/20/21 Code Status & VTE Plan Code Status DNR/DNI VTE Prophylaxis Plan VTE Prophylaxis will be ordered: Yes Supervising Physician Co-Signing Physician Notes Patient seen and examined History and findings as detailed by Loni Espinoza PA-C Notable for feeling unwell, unable to ambulate/stand (falling towards left), ?slurred speech at home this morning Physical exam notable for elderly man without any focal neurological deficits at this time, irregular irregular heart rhythm with TRISTON Had fever in ER Possible CVA/TIA based on hx CT head - no acute findings Chronic Afib not on anticoagulation due to subdural hematoma in 04/2020 per daughter Get MRI brain Neuro c/s Fever SIRS criteria - Tachycardia/fever CXR- Left pleural effusion with chronic left basilar consolidation Get UA/UCx. Blood Cx in lab Continue empiric Abx for now Agree with other plans as detailed by Loni Espinoza PA-C (1) Atrial fibrillation Atrial fibrillation type: paroxysmal Qualified Code(s): I48.0 - Paroxysmal atrial fibrillation
[2021-12-20] MEDS ORDERED: POLYETHYLENE (MIRALAX) 17 GM PACK PO PRN (18:38)
[2021-12-20] MEDS ORDERED: ONDANSETRON INJ 2 MG/ML 2 ML VIAL IV PRN (18:38)
[2021-12-20] MEDS ORDERED: GLUCAGON FOR INJ 1 MG VIAL SQ PRN (18:38)
[2021-12-20] MEDS ORDERED: CARBOHYDRATES FOR HYPOGLYCEMIA PO PRN (18:38)
[2021-12-20] MEDS ORDERED: GLUCOSE 10 TABS/TUBE PO PRN (18:38)
[2021-12-20] MEDS ORDERED: GLUCOSE 40% GEL 15 GM TUBE PO PRN (18:38)
[2021-12-20] MEDS ORDERED: DEXTROSE 50% 50 ML SYRINGE IV PRN (18:38)
[2021-12-20] MEDS ORDERED: ACETAMINOPHEN 325 MG TAB PO PRN (18:38)
[2021-12-20] MEDS ORDERED: PHARMACIST DISCHARGE MED REC CONSULT PRN (18:38)
--- NOTE | 2021-12-20 19:24 | Magnetic Resonance Report ---
MRI OF THE BRAIN WITHOUT IV CONTRAST CLINICAL HISTORY: Strokelike symptoms. Generalized weakness. COMPARISON STUDY: CT of the brain dated 12/20/2021. MRI of the brain dated 05/01/2021. TECHNIQUE: MRI of the brain was performed utilizing various T1 and T2-weighted sequences in the axial , sagittal, and coronal planes. IV contrast was not administered for this examination. FINDINGS: Brain parenchyma: There is age-related involutional change noting mild subcortical and periventricula r microangiopathic disease. There is no hemorrhage or mass effect. There is no restricted diffusion t o suggest acute ischemia. Chou-white matter differentiation is preserved. No extra-axial fluid collec tion is seen. The cerebellar tonsils are normal in configuration. Mineralization is noted in the basa l ganglia. Ventricles, sulci, and cisterns: Prominent secondary to involutional change. Pituitary and sella: Unremarkable. Intracranial vasculature: Normal flow voids are maintained at the skull base. Orbits: There is chronic deformity of the right orbital floor. Orbital contents are normal in appeara nce noting bilateral ocular lens implants. Sinuses and mastoids: Clear. Calvarium: Unremarkable. Cervical cord: Partially visualized cervical spinal cord is normal in morphology and signal intensity . IMPRESSION: No acute intracranial abnormality. ACT 112: Negative or not required by law. Electronically signed by: Aman Valverde M.D. 12/20/2021 7:22 PM
[2021-12-20] MEDS: INSULIN ASPART PER UNIT SC SCH ×2 (19:47→21:07)
[2021-12-20] MEDS: levETIRAcetam 500 MG TAB PO SCH (20:56)
[2021-12-20] MEDS ORDERED: LOVASTATIN 20 MG TAB PO SCH (21:00)
[2021-12-20] MEDS: PIPERACILLIN/TAZOBACTAM 3.375 GM in DEXTROSE 5% 100 ML IV SCH (21:01)
[2021-12-21 06:52] LABS: Basophils # (auto) 0.01 K/uL (0-0.2); Basophils % (auto) 0.2 %; Eosinophils # (auto) 0.01 K/uL (0-0.5); Eosinophils % (auto) 0.2 %; Hematocrit (blood only) 29.7 % (42-52); Hemoglobin 9.5 g/dL (14.0-18.0); Immature Granulocytes # (auto) 0.02 K/uL (0.00-0.02); Immature Granulocytes % (auto) 0.4 %; Lymphocytes # (auto) 0.68 K/uL (1.2-3.4); Lymphocytes % (auto) 13.7 %; Mean Corpuscular Hemoglobin 30.7 pg (25-34); Mean Corpuscular Volume 96.1 fL (80-100); Mean Platelet Volume 9.4 fL (7.4-10.4); Monocytes % (auto) 12.1 %; Neutrophils # (auto) 3.65 K/uL (1.4-6.5); Neutrophils % (auto) 73.4 %; Platelet Count 209 K/uL (130-400); RDW Coefficient of Variation 15.4 % (11.5-14.5); RDW Standard Deviation 53.7 fL (36.4-46.3); Red Blood Count 3.09 M/uL (4.7-6.1); White Blood Count 4.97 K/uL (4.8-10.8)
[2021-12-21 07:29] LABS: Calcium 8.9 mg/dl (8.5-10.1); Chol HDL Ratio 3.4 (0-5); Creatinine Clr Calc Pharmacy 11.2 ml/min; Est GFR (African American) 8.6 ml/min; Est GFR (Non-African American) 7.4 ml/min; Potassium 4.6 mmol/L (3.5-5.1)
--- NOTE | 2021-12-21 07:30 | Electrocardiogram Report ---
Test Reason : Blood Pressure : / mmHG Vent. Rate : 110 BPM Atrial Rate : 375 BPM P-R Int : 000 ms QRS Dur : 096 ms QT Int : 354 ms P-R-T Axes : 000 059 037 degrees QTc Int : 479 ms Atrial fibrillation with rapid ventricular response Incomplete right bundle branch block Abnormal ECG When compared with ECG of 03-MAY-2021 13:12, Vent. rate has increased BY 37 BPM Confirmed by Enrique Horowitz [id number]) on 12/21/2021 7:30:20 AM Referred By: REFERRED SELF Confirmed By:Trevon Horowitz
[2021-12-21] MEDS: CHOLECALCIFEROL 1,000 UNITS 25 MCG TAB PO SCH (08:12)
[2021-12-21] MEDS: SERTRALINE HCL 50 MG TABLET PO SCH (08:12)
[2021-12-21] MEDS: levETIRAcetam 500 MG TAB PO SCH ×2 (08:12→21:17)
[2021-12-21] MEDS: CALCIUM ACETATE 667 MG CAP/TAB PO SCH (08:12)
[2021-12-21] MEDS: NEPHROCAPS PO SCH (08:13)
[2021-12-21] MEDS: METOPROLOL SUCC 25MG EXT REL TAB PO SCH (08:13)
[2021-12-21] MEDS: INSULIN ASPART PER UNIT SC SCH ×4 (08:13→21:27)
[2021-12-21] MEDS ORDERED: ASPIRIN 81 MG ECTAB PO SCH (09:00)
[2021-12-21] MEDS: PIPERACILLIN/TAZOBACTAM 3.375 GM in DEXTROSE 5% 100 ML IV SCH ×2 (11:15→21:27)
--- NOTE | 2021-12-21 11:24 | Hospitalist Progress Note ---
Date of Service December 21, 2021 Assessment & Plan (1) Stroke-like symptoms: (2) SIRS (systemic inflammatory response syndrome): (3) ESRD on dialysis: (4) Diabetes mellitus, type 2: (5) Chronic diastolic heart failure: (6) Atrial fibrillation: (7) Do not resuscitate: Plan: 81-year-old male who has significant past medical history of ESRD on HD MWF, T2DM, chronic atrial fibrillation not on anticoagulation secondary to history of SDH, COPD, chronic hypoxic respiratory failure on nocturnal O2 4 L, CARLOS ALBERTO not on CPAP, chronic diastolic CHF, HTN, AAA, history of SDH on seizure prophylaxis, secondary hyperparathyroidism who presents ED secondary to concern for stroke like sx since this morning. Stroke like sx - L facial droop, slurred speech - now resolved Hx of CVA Chronic Atrial fib - not on anticoagulation due to hx of SDH Previously pt on ASA, Plavix; however pt currently not taking any anti platelet therapy MRI did not show any acute stroke Last carotid doppler 04/2021 - negative for hemodynamic significant stenosis, will defer due to neurology if repeat or further imaging required Lipid panel noted Possible TIA Neuro recs appreciated Awaiting PT/OT eval On lovastatin at home. Changed to atorvastatin Started on ASA 81mg Had temp of 38.2 on admission Elevated procalcitonin, patient appears to have chronically elevated Pro-Guillermo No current source of infection at this time CXR show chronic findings Will continue empirical antibiotics for now until blood culture prelim results. Chronic atrial fibrillation Continue metoprolol Not on OAC 2/2 to hx of SDH Elevated troponin Flat. No chest pain likely in setting of renal diease End-stage renal disease Hemodialysis Wednesday Nephro on board Renal diet, Triphrocaps Traumatic SDH Continue keppra for sz prophylaxis COPD CARLOS ALBERTO Chronic Nocturnal Hypoxia - on 4L of O2 at HS Chronic L pleural effusion continue O2 supplementation follows [facility] pulm T2DM Last A1c 6.8 on 12/04/2021 Hold glipizide and Trulicity NovoLog per protocol Known R renal Mass -3.5 x 2.8 cm, PET scan suggestive of renal cell carcinoma Numerous right pulmonary nodules suggestive of metastatic disease Hematuria Patient had declined urologic evaluation AAA 5.5 x 5.6 cm - on PET scan in june will need outpatient follow up DNR/DNI PCP: Dr. Colon DVT ppx: SCD/TEDS for now, given reported hematuria, hx of SDH will avoid chemical ppx for now Daughter called and updated Admission and Anticipated Discharge Date Admission Date: December 20, 2021 Subjective Patient seen and examined. Currently denies any chest pain, shortness of breath. Reports some cough. Denies any fevers, chills Denies any focal weakness, numbness. Patient does not have great insight into reason for hospitalization. Denies any abdominal pain, nausea, vomiting or diarrhea Physical Exam Constitutional: + well hydrated; no acute distress Eyes: PERRL, conjunctivae normal, anicteric sclerae ENMT: external ear and nose normal, oropharynx normal Respiratory: normal respiratory effort, lungs clear to auscultation Cardiovascular: Rate/Rhythm: + irregularly irregular S1 S2. Systolic murmur Gastrointestinal (Abdomen): normal bowel sounds, soft, nontender, no hepatosplenomegaly Musculoskeletal: no cyanosis or clubbing, extremities motor strength 5/5 Neurologic: PERRL, EOMI, accommodation nl, no face palsy, no dysarthria Results & Data Results & Data ([facility]) Vital Signs (Past 12 Hours) Vital Signs Temp Pulse Resp BP Pulse Ox 12/21/21 07:49 36.9 C 87 20 149/61 H 94 12/21/21 05:08 36.9 C 91 H 20 108/63 93 Laboratory Results Abnormal lab results 12/20/21 12/20/21 12/20/21 Range/Units 12:55 12:55 12:55 RBC (4.7-6.1) M/uL Hgb (14.0-18.0) g/dL Hct (42-52) % RDW Std Deviation (36.4-46.3) fL RDW Coeff of Kiah (11.5-14.5) % Lymph # (Auto) (1.2-3.4) K/uL [place] # (Auto) (0.11-0.59) K/uL Sodium 134 L (136-145) mmol/L BUN 37 H (6-23) mg/dl Creatinine 5.43 H* (0.6-1.4) mg/dl BUN/Creatinine Ratio 6.8 L (10-20) Glucose 104 H (70-99(Fasting)) mg/dl POC Glucose (70-99) mg/dl AST 12 L (13-39) U/L Troponin I 0.14 H* (0-0.04) ng/ml B-Natriuretic Peptide 1151 H (0-100) pg/ml Procalcitonin 2.38 H (0-0.5) ng/ml 12/20/21 12/20/21 12/20/21 Range/Units 18:05 18:35 20:50 RBC (4.7-6.1) M/uL Hgb (14.0-18.0) g/dL Hct (42-52) % RDW Std Deviation (36.4-46.3) fL RDW Coeff of Kiah (11.5-14.5) % Lymph # (Auto) (1.2-3.4) K/uL [place] # (Auto) (0.11-0.59) K/uL Sodium (136-145) mmol/L BUN (6-23) mg/dl Creatinine (0.6-1.4) mg/dl BUN/Creatinine Ratio (10-20) Glucose (70-99(Fasting)) mg/dl POC Glucose 102 H 186 H (70-99) mg/dl AST (13-39) U/L Troponin I 0.51 H* (0-0.04) ng/ml B-Natriuretic Peptide (0-100) pg/ml Procalcitonin (0-0.5) ng/ml 12/21/21 12/21/21 12/21/21 Range/Units 00:56 06:06 06:06 RBC 3.09 L (4.7-6.1) M/uL Hgb 9.5 L (14.0-18.0) g/dL Hct 29.7 L (42-52) % RDW Std Deviation 53.7 H (36.4-46.3) fL RDW Coeff of Kiah 15.4 H (11.5-14.5) % Lymph # (Auto) 0.68 L (1.2-3.4) K/uL [place] # (Auto) 0.60 H (0.11-0.59) K/uL Sodium 133 L (136-145) mmol/L BUN 51 H (6-23) mg/dl Creatinine 6.40 H* D (0.6-1.4) mg/dl BUN/Creatinine Ratio 8.0 L (10-20) Glucose 110 H (70-99(Fasting)) mg/dl POC Glucose (70-99) mg/dl AST (13-39) U/L Troponin I 0.51 H* (0-0.04) ng/ml B-Natriuretic Peptide (0-100) pg/ml Procalcitonin (0-0.5) ng/ml 12/21/21 12/21/21 Range/Units 07:42 11:13 RBC (4.7-6.1) M/uL Hgb (14.0-18.0) g/dL Hct (42-52) % RDW Std Deviation (36.4-46.3) fL RDW Coeff of Kiah (11.5-14.5) % Lymph # (Auto) (1.2-3.4) K/uL [place] # (Auto) (0.11-0.59) K/uL Sodium (136-145) mmol/L BUN (6-23) mg/dl Creatinine (0.6-1.4) mg/dl BUN/Creatinine Ratio (10-20) Glucose (70-99(Fasting)) mg/dl POC Glucose 107 H 172 H (70-99) mg/dl AST (13-39) U/L Troponin I (0-0.04) ng/ml B-Natriuretic Peptide (0-100) pg/ml Procalcitonin (0-0.5) ng/ml (1) Atrial fibrillation Atrial fibrillation type: paroxysmal Qualified Code(s): I48.0 - Paroxysmal atrial fibrillation
--- NOTE | 2021-12-21 11:34 | Communication Note ---
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 He admits to have cognitive issues and when I last saw him in the spring it was clear his history was very variable and consistent and he was cognitively impaired He has a remote history of a subdural hematoma and because of this and his propensity for falling related to his muscle weakness and gait disturbance he is not felt to be a candidate for anticoagulation despite his longstanding atrial fibrillation history Home medications include vitamin B complex calcium vitamin D glipizide Keppra 500 mg twice a day to prevent seizures following his subdural hematoma, lovastatin, metoprolol, sertraline and Victoza On admission he work-up was essentially normal in terms of detecting new infarctions on either CT or MRI of the brain but there is evidence for leukoencephalopathy. CT angiographic studies have not been done but a duplex of the carotids done in April was unremarkable Laboratory studies are consistent with his chronic renal failure, show anemia, slight elevated troponin and BNP Illicit allergies to codeine Family history social history is as recorded on his admission history and physical Review of systems really cannot be obtained from the patient in a reliable fashion but as recorded on admission there were no significant new issues other than his transient articulatory disturbance which is now apparently resolved On exam blood pressure 127/55 pulse 86 respirations are 18 he is afebrile and O2 saturation are 95% He is pleasant superficially oriented but admits to having significant memory problems and really has very little recall about why he is here in the hospital and denies any had any problems with speech Cranial nerve examination grossly is normal his articulation is normal he does not seem to have any gross word finding problems and I do not see any facial asymmetry no abnormal ocular movements visual field cut to confrontation and normal facial sensation. 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 He does have distal reduction in vibration and light touch and some slight reduction in proprioception but his ability to cooperate with sensory examinations. Limited This certainly could have been a transient ischemic attack and atrial fibrillation could have been the culprit but this is a man with prior subdural hematoma and incredible Hugo high fall risk due to his gait disturbance and who is cognitively impaired so I do not feel that anticoagulation with either a novel anticoagulant or Coumadin is indicated here despite the fact that this w ould be the only means of anticoagulation with any efficacy against recurrent embolic events due to atrial fibrillation In April there was some question of whether he had a TIA as well so we placed him on 3 weeks of aspirin and Plavix. In light of his multiple vascular risk factors I suspect low-dose aspirin could be justified but beyond as I really do not think we need to offer any type of antiplatelet therapy There is no clinical or imaging evidence for new stroke in the setting At this point neurology is going to sign off the case with recommendations being only consideration of low-dose aspirin or a single Plavix per day as a possible secondary stroke prevention for his small vessel disease realizing of course that will have no effect or marginal effect on preventing embolic events from his atrial fibrillation Niko Batres MD The above note was generated utilizing voice recognition technology and may have spelling errors punctuation errors pronoun usage errors in syntax errors
--- NOTE | 2021-12-21 12:19 | Consultation Report ---
NEPHROLOGY CONSULTATION NOTE REASON FOR CONSULTATION: Dialysis patient admitted with stroke-like symptom. HISTORY OF PRESENT ILLNESS: The patient is an 81-year-old male with history of end-stage renal disea se, on hemodialysis Wednesday, Wednesday, Wednesday at the [facility] unit through a right upper arm AV fistula, longstanding type 2 diabetes, chronic atrial fibrillation, not on anticoagulation, CO PD, on nocturnal oxygen, obstructive sleep apnea, and multiple other medical problems, who presented to the hospital with stroke-like symptoms. The patient is a very poor historian. He can barely answ er anything. He was brought to the hospital by his daughter who felt that the patient was having natalee e altered mental status as well as some left facial droop. CT head and MRI of the brain has been don e already. As per the report, no significant acute abnormality noted. The patient last had his dial ysis on Wednesday as per his schedule and he denies having any acute symptoms at this time. He is hemod ynamically stable. ALLERGIES: CODEINE. MEDICATIONS: Home medication list was reviewed and is as per the reconciliation list. PAST MEDICAL HISTORY: As detailed in HPI. On top of that, he also has chronic diastolic congestive h eart failure; hypertension; AAA; history of subdural hematoma, on seizure prophylaxis; obstructive sl eep apnea, not on CPAP; chronic hypoxic respiratory failure, on oxygen;COPD; chronic atrial fibrillat ion; longstanding type 2 diabetes; end-stage renal disease on hemodialysis; history of pleural effusi on. FAMILY HISTORY: Negative for renal disease or dialysis. PAST SURGICAL HISTORY: Back surgery, cataracts, colonoscopy, EGD, lumbar spinal fusion. SOCIAL HISTORY: Current everyday smoker. He is and lives with his daughter. He uses a walk er as well as oxygen at home. REVIEW OF SYSTEMS: The patient is a very poor historian. He just said yes to everything and denies any complaint at this time. Twelve systems reviewed and negative. PHYSICAL EXAMINATION: GENERAL: Elderly white male who is not in any respiratory distress. He seems fairly awake and alert and was able to answer simple questions and follow commands. VITAL SIGNS: Blood pressure is 149/61, pulse rate 87, temperature 36.9, 94% on room air. HEENT: Mucous membranes are moist. NECK: Supple. No jugular venous distention. CHEST: Bilateral decreased breath sound. Poor inspiratory effort. Delayed expiration phase. CARDIOVASCULAR: S1 and S2 regular. Soft systolic murmur heard. ABDOMEN: Soft, nontender, obese. EXTREMITIES: Show no edema. SKIN: Showed no rash. LABORATORY TESTS: Reviewed. CT head and the brain MRI was unremarkable. Hemoglobin 9.5, WBC count 4.97. Sodium 133, potassium 4.6, BUN 51, creatinine 6.4. IMAGING DATA: Chest x-ray shows cardiomegaly and emphysematous changes, but no congestive heart fail ure, chronic left pleural effusion as well as right-sided pulmonary nodule. ASSESSMENT AND PLAN: An 81-year-old male with multiple medical problems including end-stage renal di roxi, on chronic hemodialysis Wednesday, Wednesday, Wednesday, presented with stroke-like symptoms. Based on the CT head and the MRI, at least he does not have any significant stroke and his symptoms seem t o have subsided. I have been consulted for dialysis management. End-stage renal disease, he does not appear to be in any significant fluid overload or any major elec trolyte problem. He will be getting dialysis as an inpatient if he is still in the hospital. Orders have been written. No further recommendation from renal standpoint. Will do dialysis for 3 hours o n a 2K bath and take about 2-3 kilos off tomorrow. We will be using heparin and Epogen. Job ID: [id number]
[2021-12-21] MEDS: ASPIRIN 81 MG ECTAB PO SCH (14:30)
[2021-12-21] MEDS ORDERED: ATORVASTATIN 40 MG TAB PO SCH (21:00)
[2021-12-22 06:05] LABS: Basophils # (auto) 0.01 K/uL (0-0.2); Basophils % (auto) 0.2 %; Eosinophils # (auto) 0.04 K/uL (0-0.5); Eosinophils % (auto) 0.9 %; Hematocrit (blood only) 26.9 % (42-52); Hemoglobin 8.9 g/dL (14.0-18.0); Immature Granulocytes # (auto) 0.03 K/uL (0.00-0.02); Immature Granulocytes % (auto) 0.7 %; Lymphocytes # (auto) 0.82 K/uL (1.2-3.4); Mean Corpuscular Hemoglobin 31.2 pg (25-34); Mean Corpuscular Hgb Conc 33.1 g/dL (32-36); Mean Corpuscular Volume 94.4 fL (80-100); Mean Platelet Volume 9.2 fL (7.4-10.4); Monocytes # (auto) 0.68 K/uL (0.11-0.59); Monocytes % (auto) 14.9 %; Neutrophils # (auto) 2.97 K/uL (1.4-6.5); Neutrophils % (auto) 65.3 %; Platelet Count 195 K/uL (130-400); RDW Coefficient of Variation 15.3 % (11.5-14.5); RDW Standard Deviation 52.8 fL (36.4-46.3); Red Blood Count 2.85 M/uL (4.7-6.1); White Blood Count 4.55 K/uL (4.8-10.8)
[2021-12-22 06:14] LABS: BUN Creatinine Ratio 8.4 (10-20); Calcium 8.4 mg/dl (8.5-10.1); Creatinine Clr Calc Pharmacy 8.9 ml/min; Est GFR (African American) 6.5 ml/min; Est GFR (Non-African American) 5.6 ml/min; Potassium 4.5 mmol/L (3.5-5.1)
[2021-12-22] MEDS ORDERED: HEPARIN SOD (PORCINE) 1000 UNIT/ML IV ONE (07:00)
[2021-12-22] MEDS ORDERED: HEPARIN SOD (PORCINE) 1000 UNIT/ML IV SCH (07:00)
[2021-12-22] MEDS ORDERED: SODIUM CHLORIDE 0.9% 1000ML 1,000 ML IV PRN (07:00)
[2021-12-22 07:51] LABS: Estimated Average Glucose 143 mg/dl; Hemoglobin A1C 6.6 % (4.5-5.6)
[2021-12-22] MEDS: levETIRAcetam 500 MG TAB PO SCH (08:27)
[2021-12-22] MEDS: CALCIUM ACETATE 667 MG CAP/TAB PO SCH (08:27)
[2021-12-22] MEDS: CHOLECALCIFEROL 1,000 UNITS 25 MCG TAB PO SCH (08:28)
[2021-12-22] MEDS: NEPHROCAPS PO SCH (08:28)
[2021-12-22] MEDS: SERTRALINE HCL 50 MG TABLET PO SCH (08:28)
[2021-12-22] MEDS: ASPIRIN 81 MG ECTAB PO SCH (08:29)
[2021-12-22] MEDS: METOPROLOL SUCC 25MG EXT REL TAB PO SCH (08:29)
[2021-12-22] MEDS: INSULIN ASPART PER UNIT SC SCH (08:30)
--- NOTE | 2021-12-22 11:43 | Dialysis Progress Note ---
Date of Service December 22, 2021 Assessment & Plan Admission and Anticipated Discharge Date Admission Date: December 20, 2021 Subjective ASSESSMENT AND PLAN: An 81-year-old male with multiple medical problems inc luding end-stage renal disease, on chronic hemodialysis Wednesday, Wednesday, Wednesday, presented with stroke-like symptoms. Based on the CT head and the MRI, at least he does not have any significant stroke and his symptoms seem to have subsided. I have been consulted for dialysis management. End-stage renal disease, he does not appear to be in any significant fluid overload or any major electrolyte problem. He will be getting dialysis as an inpatient if he is still in the hospital. Orders have been written. No further recommendation from renal standpoint. Will do dialysis for 3 hours on a 2K bath and take about 2-3 kilos off today. We will be using heparin and Epogen. S--Seen during Dialysis. Feels fine. tolerating fine. AVF fine. BP and QB fine O---AAox3. Chest CTA CVCs--RRR Abd--Soft non tender. Ext--no edema. Results & Data ([facility]) Vital Signs (Past 12 Hours) Vital Signs Temp Pulse Pulse Resp BP BP Pulse Ox 12/22/21 11:30 69 111/58 L 12/22/21 11:00 82 115/53 L 12/22/21 10:30 79 117/84 12/22/21 10:00 80 118/55 L 12/22/21 09:30 81 106/53 L 12/22/21 09:00 81 87/53 L 12/22/21 08:50 37 C 91 H 12/22/21 07:22 36.7 C 80 19 112/64 93 12/22/21 04:39 37.0 C 75 16 119/70 97 12/21/21 23:49 83
[2021-12-22] MEDS ORDERED: STROKE PATIENT DISCHARGE STA (11:53)
--- NOTE | 2021-12-22 11:56 | Discharge Summary ---
Date of Service December 22, 2021 Admission HPI Per Admitting Provider This is a 81-year-old male who has significant past medical history of ESRD on HD MWF, T2DM, chronic atrial fibrillation not on anticoagulation secondary to history of SDH, COPD, chronic hypoxic respiratory failure on nocturnal O2 4 L, CARLOS ALBERTO not on CPAP, chronic diastolic CHF, HTN, AAA, history of SDH on seizure prophylaxis, secondary hyperparathyroidism who presents ED secondary to concern for stroke like sx since this morning. Patient was last known well at 1700 last evening. He lives at home with his daughter. His other daughter is currently present at bedside. Daughter states that this morning when trying to help patient get out of bed he was leaning and falling to his left side. It was also reported he had left facial droop and slurred speech. He does have prior history of CVA with residual left foot drop but no other deficits. When patient arrived to ED daughter continue to notice facial droop; however, now it is absent. Patient is back to his baseline. Was also noted upon arrival to ED ponce t his temperature was elevated at 38.2. Currently patient states he feels well. He denies any chills, sweats, lightheadedness, dizziness, syncope, change in vision, change in hearing, headache, chest pain, shortness of breath at rest, palpitations, nausea, vomiting, abdominal pain or diarrhea. He does have a chronic cough with productive brown sputum. He has known history of COPD and feels this is unchanged. He also has had hematuria off and on since July. Appetite has been stable. He has been compliant with medications, but did not take any today. He also has not been on any ASA or plavix. In ED patient did meet SIRS criteria secondary to tachycardia and elevated temperature. He was made stroke alert due to reported strokelike symptoms. Initial head CT was negative for any acute abnormality. His symptoms had resolved upon my examination. He is saturating well on room air. His lab work was notable for H&H 10.2 and 32.4, sodium 134, BUN 37, creatinine 5.43, glucose 104, lactate 0.9, troponin 0.14, procalcitonin 2.38, BNP 1151. He last had dialysis on Wednesday. It is also notable that patient has chronic elevated procalcitonin. In ED he did receive oral acetaminophen and IV Zosyn. Admission Exam Per Admitting Provider Constitutional: WD/WN, Elderly, M, BOIS FORTE, vitals as above, NAD, sitting up in bed, pleasant, conversing easily Head: Normocephalic, Atraumatic Eyes: PERRL, conjunctivae normal, anicteric sclerae ENMT: external ear and nose normal, oropharynx normal Neck: trachea midline, no thyromegaly normal visual inspection Respiratory: normal respiratory effort, lungs clear to auscultation, no wheeze, rales, rhonchi. Normal insp/exp effort, no accessory muscle use Cardiovascular: IRR/IRR, 2/6 TRISTON noted throughout precordium, no edema Vessels: no JVD or carotid bruit , + RUE AV Fistula Chest: normal inspection of chest, bilateral gynecomastia Abdomen: normal bowel sounds, soft, nontender, no hepatosplenomegaly Musculoskeletal: no cyanosis or clubbing, extremities motor strength 5/5 Skin: no rashes, warm and dry normal turgor Neurologic: PERRL, EOMI, accommodation nl, no face palsy, no dysarthria CN's II-XI intact bilaterally and moves all extremities Psychiatric: A+Ox3, euthymic affect Lymphatic: no cervical or axillary lymphadenopathy : deferred Principal Diagnosis Stroke like symptoms Possible TIA (Transient Ischemic Attack) Discharge Exam Constitutional + well hydrated; no acute distress Eyes PERRL, conjunctivae normal, anicteric sclerae ENMT external ear and nose normal, oropharynx normal Respiratory normal respiratory effort, lungs clear to auscultation Cardiovascular Rate/Rhythm: + irregularly irregular S1 S2 Gastrointestinal (Abdomen) normal bowel sounds, soft, nontender, no hepatosplenomegaly Musculoskeletal no cyanosis or clubbing, extremities motor strength 5/5 Neurologic PERRL, EOMI, accommodation nl, no face palsy, no dysarthria Psychiatric A+Ox3, euthymic affect Discharge Data Allergies Allergy/AdvReac Type Severity Reaction Status Date / Time codeine AdvReac Intermediate NAUSEA Verified 07/11/21 09:52 Consultations 12/20/21 14:12 ED Decision to Admit Stat 12/20/21 14:20 Consult Nephrology Routine 12/20/21 15:05 Consult Neurology Routine Ordered Studies 12/20/21 12:29 CT head/brain wo con Stat Brain parenchyma: There are age-related involutional changes noting mild subcortical and periventricular microangiopathic change. There is no hemorrhage, mass effect, or evidence of acute territorial ischemia by CT criteria. Chou- white matter differentiation is preserved. No extra-axial fluid collection is seen. Ventricles, sulci, cisterns: Prominent secondary to involutional change. Intracranial vasculature: There is atherosclerotic calcification of the cavernous carotid and vertebral arteries. Calvarium: Unremarkable. Sinuses and mastoids: The visualized paranasal sinuses are clear. The mastoid air cells are well pneumatized. Cerumen is noted in the right external auditory canal. Orbits: There is chronic deformity of the right orbital floor. There are bilateral ocular lens implants. IMPRESSION: There is no hemorrhage, mass effect, or evidence of acute territorial ischemia by CT criteria. 12/20/21 15:05 MR brain wo con Routine Brain parenchyma: There is age-related involutional change noting mild s ubcortical and periventricular microangiopathic disease. There is no hemorrhage or mass effect. There is no restricted diffusion to suggest acute ischemia. Chou-white matter differentiation is preserved. No extra-axial fluid collection is seen. The cerebellar tonsils are normal in configuration. Mineralization is noted in the basal ganglia. Ventricles, sulci, and cisterns: Prominent secondary to involutional change. Pituitary and sella: Unremarkable. Intracranial vasculature: Normal flow voids are maintained at the skull base. Orbits: There is chronic deformity of the right orbital floor. Orbital contents are normal in appearance noting bilateral ocular lens implants. Sinuses and mastoids: Clear. Calvarium: Unremarkable. Cervical cord: Partially visualized cervical spinal cord is normal in morphology and signal intensity. IMPRESSION: No acute intracranial abnormality. Hospital Course (1) Stroke-like symptoms: (2) SIRS (systemic inflammatory response syndrome): (3) ESRD on dialysis: (4) Diabetes mellitus, type 2: (5) Chronic diastolic heart failure: (6) Atrial fibrillation: (7) Do not resuscitate: 81-year-old male who has significant past medical history of ESRD on HD MWF, T2DM, chronic atrial fibrillation not on anticoagulation secondary to history of SDH, COPD, chronic hypoxic respiratory failure on nocturnal O2 4 L, CARLOS ALBERTO not on CPAP, chronic diastolic CHF, HTN, AAA, history of SDH on seizure prophylaxis, secondary hyperparathyroidism who presents ED secondary to concern for stroke like sx since this morning. Stroke like sx - L facial droop, slurred speech -Was resolved on admission Hx of CVA Chronic Atrial fib - not on anticoagulation due to hx of SDH Previously pt on ASA, Plavix; however pt currently not taking any anti platelet therapy MRI did not show any acute stroke Last carotid doppler 04/2021 - negative for hemodynamic significant stenosis, will defer due to neurology if repeat or further imaging required Lipid panel noted Possible TIA Evaluated by Neurology who recommend antiplatelet therapy due to multiple risk factors though no obvious new stroke at this time Started on ASA 81mg On lovastatin at home. Changed to atorvastatin Had temp of 38.2 on admission Elevated procalcitonin, patient appears to have chronically elevated Procal Infectious work up negative CXR show chronic findings Chronic atrial fibrillation Continue metoprolol Not on OAC 2/ to hx of SDH Elevated troponin Flat. No chest pain likely in setting of renal diease End-stage renal disease Hemodialysis Wednesday Renal diet, Triphrocaps Traumatic SDH Continue keppra for seizure prophylaxis COPD CARLOS ALBERTO Chronic Nocturnal Hypoxia - on 4L of O2 at HS Chronic L pleural effusion continue O2 supplementation follows [facility] pulm T2DM Last A1c 6.8 on 12/04/2021 Continue glipizide and Trulicity Known R renal Mass -3.5 x 2.8 cm, PET scan suggestive of renal cell carcinoma Numerous right pulmonary nodules suggestive of metastatic disease Hematuria Patient had declined urologic evaluation AAA 5.5 x 5.6 cm - on PET scan in june will need outpatient follow up Patient discharged to follow up with PCP Daughter called and updated Total Time Total Time Spent Total Time Spent (In Minutes): 45 Total Time Includes: Examination of the Patient, Discharge Planning, Medication Reconciliation and Communication With Other Providers Discharge Plan Discharge Items Patient Disposition: Home - Self-Care Reason For Visit: STROKE LIKE SYMPTOMS, SIRS Discharge Diagnosis: Stroke like symptoms Possible TIA (Transient Ischemic Attack) Activity: Resume your previous activity Non-emergency contact: Primary Care Provider Call non-emergency contact if: you have any medication questions Follow-up/Referrals: Aden Colon MD [Primary Care Provider] - (Date & Time 12/26/2021 10:00 AM Provider Aden Colon MD Department [facility] ) Diet: Dialysis Renal and Heart Healthy Addtl Attending Provider Instructions: Mr Yuan. You were brought to the hospital due to stroke like symptoms. You were evaluated with CT and MRI which did not show any acute stroke. You were evaluated by Neurologist and started on aspirin 81mg. Your lovastatin was changed to Atorvastatin. Please ensure follow up with your Primary Doctor It was a pleasure taking care of you. Pending Studies at Discharge: No Stand-Alone Forms: Medications to Prevent Stroke, My [facility], Smoking Cessation Medications and DC Order Prescriptions: New atorvastatin 40 mg Tablet 40 mg PO HS Qty: 40 RF: 0 aspirin 81 mg Tablet,Delayed Release (Dr/Ec) 81 mg PO QAM Qty: 30 RF: 0 Continued levetiracetam 500 mg Tablet 500 mg PO BID RF: 0 Victoza 2-Fernando 0.6 mg/0.1 mL (18 mg/3 mL) Pen Injector 1.2 mg SUBCUT DAILY RF: 0 cholecalciferol (vitamin D3) 2,000 unit Tablet 2,000 units PO QAM RF: 0 sertraline 25 mg tablet 25 mg PO QAM RF: 0 glipizide 5 mg tablet 2.5 mg PO BID RF: 0 metoprolol succinate 25 mg Tablet Extended Release 24 Hr 25 mg PO DAILY RF: 0 Triphrocaps 1 mg capsule 1 cap PO DAILY RF: 0 calcium acetate(phosphat bind) 667 mg tablet 1,334 mg PO DAILY RF: 0 Discontinued lovastatin 40 mg Tablet 80 mg PO HS RF: 0 Discharge Orders: Discharge Order (Routine); Ordered 12/22/21 Ordered By: Freda Cervantes Admission Data Admit Date/Time: 12/20/21 14:20 Attending Provider: Freda Cervantes I. Admit Provider: Samuel Britton Primary Care Provider: Aden Colon Other Providers: Eric Ayala ; Niko Batres Manabendra Other Interventions: Discharge Summary Assessment (RN) Last Done: 12/22/21 12:12
--- NOTE | 2021-12-22 12:23 | Pharmacy Report ---
Pharmacist Stroke Counseling - Date of Service December 22, 2021 - Scope: Pharmacy has been consulted to provide medication discharge counseling for this patient admitted with transient ischemic attack as per the Pharmacist Discharge Counseling for Stroke Patients Protocol. - Medications on Discharge: Home Medications Medication Instructions Recorded Confirmed cholecalciferol (vitamin D3) 50 2,000 units PO QAM 02/09/19 12/20/21 mcg (2,000 unit) tablet liraglutide 0.6 mg/0.1 mL (18 mg/3 1.2 mg SUBCUT DAILY 02/09/19 12/20/21 mL) subcutaneous pen injector (Victoza 2-Fernando) levetiracetam 500 mg tablet 500 mg PO BID 05/10/19 12/20/21 sertraline 25 mg tablet 25 mg PO QAM 11/21/19 12/20/21 glipizide 5 mg tablet 2.5 mg PO BID 05/01/21 12/20/21 metoprolol succinate 25 mg 25 mg PO DAILY 05/01/21 12/20/21 tablet,extended release 24 hr calcium acetate(phosphat bind) 667 1,334 mg PO DAILY 12/20/21 12/20/21 mg tablet vitamin B complex and vitamin C 1 cap PO DAILY 12/20/21 12/20/21 no.20-folic acid 1 mg capsule (Triphrocaps) New Rx's Medication Instructions Recorded aspirin 81 mg tablet,delayed 81 mg PO QAM #30 tab 12/22/21 release atorvastatin 40 mg tablet 40 mg PO HS #40 tab 12/22/21 - Action: The above medications, specifically ones for stroke treatment/prophylaxis, have been reviewed in detail with the patient prior to discharge. This includes indication, common adverse reactions, drug interactions, and medication administration. Medication counseling has been employed using the teach-back method to ensure understanding. - Outcome: The patient has demonstrated understanding of the medications. Additional comments: -counseled patient in dialysis as being discharged from there Thank you for allowing pharmacy to be involved in the care of this patient. Please call [phone] with any additional questions
== END 2021-12-22 14:59 | disposition home or self-care (01) ==
LOC: ED 12:44 → EDINP 14:20 → SUATTDRO 14:20 → INTOOBSV 14:20 → 2S 18:35